=== PATIENT | male | born 1975 | race Caucasian/White ===

== ENCOUNTER → 2017-10-06 08:08 | Outpatient (CLI) | payer OTHER, SELFPAY ==
[2017-10-06 10:13] LABS: Hemoglobin A1c 5.6 % (4.2-6.3)
[2017-10-06 10:20] LABS: ALB/GLOB Ratio 1.1 RATIO (0.9-2.4); AST(SGOT) 32 U/L (15-37); Alanine Aminotransfer ALT/SGPT 66 U/L (16-61); Alkaline Phosphatase 83 U/L (45-117); Anion Gap 9 (5-15); BUN 22 mg/dL (7-18); BUN/Creat Ratio 30.9 RATIO (10-20); Calcium,Total 9.3 mg/dL (8.5-10.1); Chloride 105 mmol/L (98-107); Cholesterol 170 mg/dL (200); Creatinine, Serum 0.71 mg/dL (0.70-1.30); EST Glomerular Filtration Rate 129 mL/min (>60); Est Glom Filt Rate - Afr Amer 156 mL/min (>60); Globulin 3.5 g/dL (2.2-4.2); Glucose 94 mg/dL (74-106); High Density Lipoprotein 45 mg/dL; Potassium 4.1 mmol/L (3.5-5.1); Protein, Total 7.5 g/dL (6.4-8.2); Sodium Level 140 mmol/L (136-145); T4 Free Direct 1.03 ng/dL (0.76-1.46); Thyroid Stim Hormone (TSH) 1.09 uIU/mL (0.358-3.74); Triglycerides 350 mg/dL; Very Low Density Lipoprotein 70 mg/dL (5-40)
== END ==
PROVIDERS: Family Provider Family Medicine; PCP Family Medicine; Visit Provider Internal Medicine Endocrinology, Diabetes & Metabolism
DX: E05.90 Thyrotoxicosis, unspecified without thyrotoxic crisis or storm (principal); E11.65 Type 2 diabetes mellitus with hyperglycemia
CPT/HCPCS: 36415; 80053; 80061; 83036; 84439; 84443; 84481

== ENCOUNTER 2017-12-10 11:09 | Emergency (ER) | payer OTHER, SELFPAY ==
[2017-12-10 11:10] VITALS: BP 116/78; PULSE 96; RESP 18; TEMP 36.9; O2SAT 99; BMI 34.7
[2017-12-10 11:14] VITALS: BP 135/95; PULSE 93; RESP 15; O2SAT 97
--- NOTE | 2017-12-10 11:17 | EKG12_ITS ---
Test Reason : CHEST PAIN Blood Pressure : / mmHG Vent. Rate : 094 BPM Atrial Rate : 094 BPM P-R Int : 162 ms QRS Dur : 100 ms QT Int : 364 ms P-R-T Axes : 021 008 024 degrees QTc Int : 455 ms Normal sinus rhythm Normal ECG Confirmed by ARCADIO BARTH ([id number]), editor & co founder NIRAJ HOFF ([id number]) on 12/13/2017 10:24:52 AM Referred By: FAIZAN/JENNY Confirmed By:ARCADIO BARTH
--- NOTE | 2017-12-10 11:22 | RAD_ITS ---
STUDY: X-RAY CHEST REASON FOR EXAM: Male, 42 years old. Chest pain. TECHNIQUE: Single AP portable view of the chest. COMPARISON: Comparison is made with prior study dated June 20, 2016. FINDINGS: EKG electrodes are seen. The lungs are clear and expanded. There is no demonstrated pleural abnormality. Normal size heart. Normal mediastinum and suly. Normal visualized pulmonary arteries. Normal visualized aortic arch and descending thoracic aorta. Normal visualized thoracic spine. Normal visualized ribs, clavicles, and shoulders. There is no demonstrated abnormality of the visualized soft tissue structures of the upper abdomen. RAD/Chest 1 View (Portable) IMPRESSION: Normal x-ray examination of the chest. Electronically Signed: Lyle Marroquin MD at 12:29 EDT Tel [phone], Service support ,
[2017-12-10] MEDS: Aspirin 81 MG TAB.CHEW 324 MG PO (11:23)
[2017-12-10 11:48] LABS: Absolute Lymphocyte Count 2.42 X10^3/ul (0.83-4.51); Absolute Neutrophil Count 3.7 X10^3/uL (2.0-7.7); Basophil# 0.01 X10^3/uL; Basophil% 0.1 % (0-1); Eosinophil# 0.07 X10^3/uL; Hematocrit 45.9 % (40-54); Hemoglobin 15.4 g/dl (13.0-16.5); Lymphocyte # 2.42 X10^3/ul (4.0); Lymphocyte % 35.9 % (19-41); Mean Corp Hgb Conc 33.6 g/gl (32-36); Mean Corpuscular Hgb 29.9 pg (27.0-32.0); Mean Corpuscular Volume 89.1 fL (80-94); Mean Platelet Vol. 9.3 fl (6.2-12.0); Monocyte# 0.56 X10^3/uL; Monocyte% 8.3 % (0-10); Neutrophil # 3.67 X10^3/uL (2.7-7.7); Neutrophil % 54.4 % (47-70); Platelet Count 231 K/mm3 (150-450); RBC Distribution Width CV 13.4 % (11.6-14.6); RBC Distribution Width SD 43.7 fl (35.1-43.9); Red Blood Count 5.15 M/mm3 (4.6-6.2); White Blood Count 6.8 K/mm3 (4.4-11.0)
[2017-12-10 11:55] LABS: POSITIVE COUNT NO; POSITIVE DIFFERENTIAL NO; POSITIVE MORPHOLOGY NO
[2017-12-10 12:07] LABS: Anion Gap 9 (5-15); BUN 19 mg/dL (7-18); Calcium,Total 9.2 mg/dL (8.5-10.1); Chloride 107 mmol/L (98-107); Creatinine, Serum 0.76 mg/dL (0.70-1.30); EST Glomerular Filtration Rate 120 mL/min (>60); Est Glom Filt Rate - Afr Amer 145 mL/min (>60); Estimated Creatinine Clearance 155.45 ml/min; Glucose 73 mg/dL (74-106); Potassium 4.3 mmol/L (3.5-5.1); Sodium Level 143 mmol/L (136-145)
[2017-12-10 12:11] VITALS: BP 114/78; PULSE 90; RESP 16
--- NOTE | 2017-12-10 12:13 | ED.DCSUM_ITS ---
- ER Visit Summary Date of Service: 12/10/17 Chief Complaint: Chest pain History of Present Illness: The patient is a [address] 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 He is currently on Lovenox twice daily. He states for the last 1-2 weeks he has had constant chest pain that waxes and wanes in intensity. He describes it as sharp and stabbing. He also describes shortness of breath with it. He has no underlying cardiac disease. He has never had any cardiac surgery. He denies any pleuritic nature of the pain or any hemoptysis. Physical Examination: Very male no acute distress. Vital signs are stable afebrile. Blood pressure 135/95. Pulse ox 97% on room air no signs of hypoxia. H EENT exam unremarkable neck nontender no lymphadenopathy. Lungs clear to auscultation bilaterally. Heart regular rate and rhythm no murmur. Abdomen soft nontender. Extremities moving all 4. Neurovascular intact. Equal symmetrical radial pulses. Calves nontender, no edema no cords. Neurologically is awake alert without focal motor deficits. Test Results: Chest x-ray shows normal cardiac silhouette and mediastinum. EKG sinus rhythm rate 94 no signs of DC or ischemia. Unchanged from a prior. CBC normal. Normal H&H. Chemistries normal. Normal creatinine and gap. Troponin normal d-dimer normal. Emergency Department Course and Treatment: Exam is unremarkable. He will undergo a cardiac workup along with a d-dimer. Currently he is anticoagulated daily with Lovenox twice daily. Treatment Plan: Repeat exam patient doing well 1320s. He had a long discussion of all his test results. He is comfortable being discharged home with outpatient follow-up with his primary care physician Dr. Houston. Clinically I do not have a strong suspicion is to be cardiac but given his age they may want to do an outpatient stress test. Disposition: Discharged Impression: Chest pain uncertain etiology History of prior PEs anticoagulated on Lovenox This note was generated with [employer] dictation software. It may contain incorrect words, spelling, and punctuation that were not noted in review of the chart prior to signing ED Disposition - Plan for ED Patient: Chief Complaint: Chest Pain Referrals: Jose L Houston DO [Primary Care Provider] -
[2017-12-10 12:14] LABS: D-Dimer Quantitative (DVT/PE) < 0.27 FEU/ug/m (0.27-0.49)
[2017-12-10 13:16] VITALS: BP 119/78; PULSE 89; RESP 17; O2SAT 96
--- NOTE | 2017-12-10 13:31 | ED.DEP ---
ED Disposition - Plan for ED Patient: Disposition: Home or Assisted Living Chief Complaint: Chest Pain Instructions: ED Chest Pain Atypical Unkn Cause Referrals: Jose L Houston DO [Primary Care Provider] - As soon as possible Additional Instructions: Follow-up your primary care doctor. You and he may want to discuss possible outpatient stress testing. Return if feeling worse. All your tests today were normal.
[2017-12-10 13:53] VITALS: BP 119/78; PULSE 91; RESP 14; O2SAT 97
== END 2017-12-10 13:54 | disposition home or self-care (01) ==
PROVIDERS: Emergency Provider Emergency Medicine; Family Provider Family Medicine; PCP Family Medicine
DX: R07.9 Chest pain, unspecified (principal); R06.00 Dyspnea, unspecified; Z86.711 Personal history of pulmonary embolism; Z86.718 Personal history of other venous thrombosis and embolism; E11.9 Type 2 diabetes mellitus without complications; Z79.01 Long term (current) use of anticoagulants; Z79.84 Long term (current) use of oral hypoglycemic drugs; Z79.899 Other long term (current) drug therapy
CPT/HCPCS: 71045; 80048; 84484; 85025; 85379; 93005; 99285

== ENCOUNTER → 2017-12-16 09:32 | Outpatient (CLI) | payer OTHER, SELFPAY ==
[2017-12-16 12:00] LABS: Absolute Lymphocyte Count 1.77 X10^3/ul (0.83-4.51); Absolute Neutrophil Count 3.4 X10^3/uL (2.0-7.7); Basophil# 0.01 X10^3/uL; Basophil% 0.2 % (0-1); Eosinophils% 1.8 % (0-5); Hemoglobin 13.5 g/dl (13.0-16.5); Lymphocyte # 1.77 X10^3/ul (4.0); Lymphocyte % 31.2 % (19-41); Mean Corp Hgb Conc 32.9 g/gl (32-36); Mean Corpuscular Hgb 29.5 pg (27.0-32.0); Mean Corpuscular Volume 89.7 fL (80-94); Mean Platelet Vol. 9.7 fl (6.2-12.0); Monocyte# 0.38 X10^3/uL; Monocyte% 6.7 % (0-10); Neutrophil # 3.41 X10^3/uL (2.7-7.7); Neutrophil % 59.9 % (47-70); Platelet Count 194 K/mm3 (150-450); RBC Distribution Width CV 13.2 % (11.6-14.6); RBC Distribution Width SD 42.7 fl (35.1-43.9); Red Blood Count 4.57 M/mm3 (4.6-6.2); White Blood Count 5.7 K/mm3 (4.4-11.0)
[2017-12-16 12:06] LABS: POSITIVE COUNT NO; POSITIVE DIFFERENTIAL NO; POSITIVE MORPHOLOGY NO
[2017-12-16 12:14] LABS: Hemoglobin A1c 5.7 % (4.2-6.3)
[2017-12-16 12:25] LABS: AST(SGOT) 14 U/L (15-37); Alanine Aminotransfer ALT/SGPT 37 U/L (16-61); Albumin, Serum 3.5 g/dL (3.2-5.0); Alkaline Phosphatase 71 U/L (45-117); Anion Gap 6 (5-15); BUN 14 mg/dL (7-18); BUN/Creat Ratio 22.4 RATIO (10-20); Calcium,Total 8.5 mg/dL (8.5-10.1); Chloride 108 mmol/L (98-107); Cholesterol 162 mg/dL (200); Creatinine, Serum 0.63 mg/dL (0.70-1.30); EST Glomerular Filtration Rate 149 mL/min (>60); Est Glom Filt Rate - Afr Amer 181 mL/min (>60); Free T3 2.4 pg/mL (2.18-3.98); Globulin 3.4 g/dL (2.2-4.2); Glucose 95 mg/dL (74-106); High Density Lipoprotein 54 mg/dL; Protein, Total 6.9 g/dL (6.4-8.2); Sodium Level 142 mmol/L (136-145); Triglycerides 99 mg/dL; Very Low Density Lipoprotein 20 mg/dL (5-40)
== END ==
PROVIDERS: Family Provider Family Medicine; PCP Family Medicine; Visit Provider Internal Medicine Endocrinology, Diabetes & Metabolism
DX: E78.1 Pure hyperglyceridemia (principal)
CPT/HCPCS: 36415; 80053; 80061; 83036; 84443; 84481; 85025

== ENCOUNTER → 2018-01-03 07:35 | Outpatient (CLI) | payer OTHER, SELFPAY ==
--- NOTE | 2018-01-03 07:36 | ECHOCS_ITS ---
Reason For Study: DYSPNEA Procedure This was a 2D Doppler, Color Flow transthoracic echocardiogram. Definity deferred due to severe reaction on previous echo with chest and flank pain. Exam performed in department. Left Ventricle Normal LV size. The estimated ejection fraction is 50 %. Left ventricular systolic function is lower limits of normal. Stage 2 diastolic dysfunction. No regional wall motion abnormalities noted. Right Ventricle Normal RV size. Normal systolic function. Atria The left atrium is moderately enlarged. Normal right atrium. Mitral Valve Normal mitral valve. Tricuspid Valve Normal tricuspid valve. Mild (1+) tricuspid valve insufficiency. Pulmonary artery systolic pressure is 36 mmHg. Aortic Valve Normal aortic valve. Pulmonic Valve Normal pulmonic valve. Great Vessels Normal aortic root. The pulmonary artery is normal size. Normal inferior vena cava. Pericardium/Pleural No pericardial effusion. MMode/2D Measurements & Calculations LVIDd: 6.4 cm IVSd: 1.2 cm Ao root diam: 3.7 cm LVIDs: 5.4 cm LVPWd: 1.2 cm RVDd: 3.4 cm FS: 16.4 % LAV(MOD-bp): 133.5 ml LA A4 area: 33.8 cm2 RA A4 area: 14.7 cm2 LAV(MOD-bp) Indexed: 52.2 ml/m2 LAV(MOD-sp2): 108.8 ml LAV(MOD-sp4): 135.5 ml Time Measurements MV dec time: 0.18 sec Doppler Measurements & Calculations MV E max severino: 80.8 cm/sec Lat Peak E' Severino: 15.2 cm/sec Med Peak E' Severino: 8.6 cm/sec MV A max severino: 39.3 cm/sec E/E' lat: 5.3 E/E' med: 9.4 MV E/A: 2.1 Ao V2 max: 119.1 cm/sec LV V1 max: 94.7 cm/sec PA V2 max: 94.8 cm/sec Ao max P.7 mmHg LV V1 max P.6 mmHg TR max severino: 291.1 cm/sec TR max P.9 mmHg Interpretation Summary Normal LV size. The estimated ejection fraction is 50 %. Left ventricular systolic function is lower limits of normal. Stage 2 diastolic dysfunction. Pulmonary artery systolic pressure is 36 mmHg. The left atrium is moderately enlarged. Ordering Physician: Osmel Allen Referring Physician: JENIFFER WHITE Performed By: Aubree Teixeira, DAKOTACS, RVT
--- NOTE | 2018-01-03 13:29 | PFT ---
INTRODUCTION: The patient is a 42-year-old male that presents for pulmonary function testing secondary to a diagnosis of redness of breath. Respiratory therapy reports good patient effort. Bronchodilators were used during testing. INTERPRETATION: Forced expiration spirometry demonstrates no evidence of a large airways obstructive ventilatory defect. There was no significant response to aerosolized bronchodilators, based upon strict ATS criteria. Spirograms are of good quality and do not plateau indicating slow emptying of the lungs. Body plethysmography was performed and reveals a decreased TLC to 5.45 L, 65% of predicted, indicative of a moderate restrictive ventilatory impairment. The remainder of the lung volumes are symmetrically reduced. Diffusing capacity by single breath CO is mildly reduced at 74% of predicted. When compared to previous pulmonary function studies dated October 2016 there is been symmetric reductions in FEV1 and FVC. TLC and DLCO have also both decreased by approximately 16%. IMPRESSION: These pulmonary function studies demonstrate the presence of a moderate restrictive ventilatory defect with mild reduction in diffusing capacity. There has been worsening in the patient's PFTs since they were last completed in 2016, as noted above.
== END ==
PROVIDERS: Family Provider Family Medicine; PCP Family Medicine; Visit Provider Internal Medicine Critical Care Medicine
DX: I26.99 Other pulmonary embolism without acute cor pulmonale (principal); R06.02 Shortness of breath
CPT/HCPCS: 93306; 94060; 94726; 94729

== ENCOUNTER → 2018-02-16 06:23 | Outpatient (CLI) | payer OTHER, SELFPAY ==
--- NOTE | 2018-02-16 09:27 | STRESSREP ---
Stress Test Report Pharmacologic myocardial perfusion stress test. 42-year-old man with a history of recurrent deep vein thrombosis. Stress protocol: Resting EKG demonstrates sinus rhythm with rate of 90 bpm resting blood pressure is 128/80 mmHg. 0.4 mg regadenoson was infused per usual protocol followed by rapid intravenous saline flush injection continuous EKG monitoring was performed. The patient maintained sinus rhythm throughout the recording. The maximum heart rate attained was 101 bpm which was 56% of maximum predicted heart rate the maximum workload was 1 metabolic equivalent. Patient maintained sinus rhythm throughout the recording. The resting blood pressure 728/80 with a final blood pressure of the same. Myocardial perfusion protocol. 14.7 mCi of technetium 99m sestamibi was injected at rest. 0.4 mg of regadenoson was infused per usual protocol peak infusion 44.4 mCi of technetium 99m sestamibi was injected stress images were obtained stress and rest images were reconstructed and compared in the short axis vertical long and horizontal long axis. Gated images were also obtained pre- Perfusion SPECT analysis: Review of the stress images demonstrate an upper normal cardiac silhouette size. There appears to be uniform uptake of tracer noted in all areas of the myocardium except for small portion of the apex the inferior wall has significant GI bowel attenuation noted. This is present on the stress and rest images to a similar extent. No obvious areas of reversibility are noted. Gated SPECT analysis: The gated ejection fraction is globally reduced at 27%. Conclusion: Pharmacologic myocardial perfusion stress test with no evidence of ischemia. Global reduction in left ventricular ejection fraction.
== END ==
PROVIDERS: Family Provider Family Medicine; PCP Family Medicine; Visit Provider Internal Medicine Cardiovascular Disease
DX: I50.30 Unspecified diastolic (congestive) heart failure (principal)
CPT/HCPCS: 36415; 78452; 83880; 93017; A9500; A4216; J2785

== ENCOUNTER → 2018-03-02 10:36 | Outpatient (CLI) | payer OTHER, SELFPAY ==
--- NOTE | 2018-03-02 11:01 | ECHOL_ITS ---
Reason For Study: CHF Procedure This was a 2D Doppler, Color Flow transthoracic echocardiogram. The study was technically difficult. Exam performed in department. Left Ventricle Mildly dilated left ventricle. The estimated ejection fraction is 40 %. Diastolic function is indeterminate. Compared to previous study, the left ventricular systolic function has worsened.. There is mild to moderate global hypokinesis of the left ventricle. Right Ventricle Normal RV size. Normal systolic function. Atria The left atrium is mildly enlarged. Normal right atrium. Mitral Valve Normal mitral valve. Tricuspid Valve Normal tricuspid valve. Aortic Valve Normal aortic valve. Trisinus/trileaflet aortic valve. Pulmonic Valve Normal pulmonic valve. Great Vessels Normal aortic root. The pulmonary artery is normal size. Normal inferior vena cava. Pericardium/Pleural No pericardial effusion. MMode/2D Measurements & Calculations LVIDd: 6.4 cm IVSd: 1.2 cm LA dimension: 4.9 cm LVIDs: 5.2 cm LVPWd: 1.2 cm FS: 17.5 % LAV(MOD-bp): 97.8 ml LA A4 area: 24.6 cm2 LAV(MOD-bp) Indexed: 38.3 ml/m2 LAV(MOD-sp2): 107.1 ml LAV(MOD-sp4): 85.9 ml Interpretation Summary Mildly dilated left ventricle. The estimated ejection fraction is 40 %. Diastolic function is indeterminate. There is mild to moderate global hypokinesis of the left ventricle. Compared to previous study, the left ventricular systolic function has worsened.. Ordering Physician: Murray Hawkins Referring Physician: Jose L Houston Performed By: Naomy Lau, PAO, RVT
== END ==
PROVIDERS: Family Provider Family Medicine; PCP Family Medicine; Visit Provider Internal Medicine Cardiovascular Disease
DX: I11.0 Hypertensive heart disease with heart failure (principal); I50.30 Unspecified diastolic (congestive) heart failure; E07.9 Disorder of thyroid, unspecified; I82.409 Acute embolism and thrombosis of unspecified deep veins of unspecified lower extremity; I26.99 Other pulmonary embolism without acute cor pulmonale
CPT/HCPCS: 93308

== ENCOUNTER → 2018-03-03 12:09 | Outpatient (CLI) | payer OTHER, SELFPAY ==
[2018-03-03 13:49] LABS: Absolute Lymphocyte Count 2.14 X10^3/ul (0.83-4.51); Absolute Neutrophil Count 3.4 X10^3/uL (2.0-7.7); Basophil# 0.01 X10^3/uL; Basophil% 0.2 % (0-1); Eosinophil# 0.06 X10^3/uL; Hematocrit 42.3 % (40-54); Hemoglobin 13.7 g/dl (13.0-16.5); Lymphocyte # 2.14 X10^3/ul (4.0); Lymphocyte % 35.1 % (19-41); Mean Corp Hgb Conc 32.4 g/gl (32-36); Mean Corpuscular Volume 89.6 fL (80-94); Mean Platelet Vol. 9.7 fl (6.2-12.0); Monocyte# 0.44 X10^3/uL; Monocyte% 7.2 % (0-10); Neutrophil # 3.44 X10^3/uL (2.7-7.7); Neutrophil % 56.3 % (47-70); Platelet Count 236 K/mm3 (150-450); RBC Distribution Width CV 13.7 % (11.6-14.6); RBC Distribution Width SD 45.3 fl (35.1-43.9); Red Blood Count 4.72 M/mm3 (4.6-6.2); White Blood Count 6.1 K/mm3 (4.4-11.0)
[2018-03-03 13:53] LABS: POSITIVE COUNT NO; POSITIVE DIFFERENTIAL NO; POSITIVE MORPHOLOGY NO
[2018-03-03 14:01] LABS: Prothrombin Time (Protime)PT. 13.1 SECONDS (11.7-14.9)
[2018-03-03 14:02] LABS: Partial Thromboplast Time 36.5 Seconds (24.1-36.2)
[2018-03-03 14:17] LABS: Anion Gap 8 (5-15); BUN 15 mg/dL (7-18); BUN/Creat Ratio 24.5 RATIO (10-20); Chloride 106 mmol/L (98-107); Creatinine, Serum 0.61 mg/dL (0.70-1.30); EST Glomerular Filtration Rate 154 mL/min (>60); Est Glom Filt Rate - Afr Amer 186 mL/min (>60); Glucose 83 mg/dL (74-106); Potassium 4.1 mmol/L (3.5-5.1); Sodium Level 141 mmol/L (136-145)
== END ==
PROVIDERS: Family Provider Family Medicine; PCP Family Medicine; Visit Provider Internal Medicine Cardiovascular Disease
DX: I11.0 Hypertensive heart disease with heart failure (principal); I50.30 Unspecified diastolic (congestive) heart failure; E07.9 Disorder of thyroid, unspecified; I82.409 Acute embolism and thrombosis of unspecified deep veins of unspecified lower extremity; I26.99 Other pulmonary embolism without acute cor pulmonale; I51.89 Other ill-defined heart diseases
CPT/HCPCS: 36415; 80048; 85025; 85610; 85730

== ENCOUNTER 2018-03-04 07:51 | Day surgery (SDC) | payer OTHER, SELFPAY ==
[2018-03-03 12:58] VITALS: BMI 36.8
--- NOTE | 2018-03-04 09:58 | CL.D_ITS ---
Patient Name: KATRINA MELVIN Study Date: 03/04/2018 Performing: Murray Hawkins MD Ht: 75.98 inches 193 cm : 1975 Wt: 302.03 lbs 137 kg Age: 42 Gender: male BSA: 2.64 PROCEDURE(S) PERFORMED [id number]/COR/LV CLINICAL PROFILE AND INDICATIONS Indications: Cardiomyopathy Heart Failure: None Stress/Imaging Stress Test w/SPECT MPI: No CAD Presentations: No Sxs, no angina. CONCLUSIONS Cardiomyopathy: Dilated idiopathic RECOMMENDATIONS Medical therapy Recommend cardiac MRI DESCRIPTION OF PROCEDURE The patient arrived to the procedure lab. The risks and benefits of the procedure as well as a full d escription of our services here and current unavailability of surgical backup were fully explained to the patient and/or their significant other prior to the catheterization. The Timeout was completed, verifying the correct patient and procedure. The patient's procedural site was prepped and draped in the usual fashion. Local anesthetic was given subcutaneously to right radial region with Lidocaine 2% . Using a modified Seldinger technique, arterial access was obtained via the right radial artery, a 6 Fr sheath was inserted. Right Coronary Artery selective angiography was then performed in multiple v iews using a 5 Fr. 4.0 [place] catheter. Left Coronary Artery selective angiography was performed in mu ltiple views using a 5 Fr. JL3.5 catheter. Left Ventriculography was performed in DIGGS projection usin g a 5 Fr. Pigtail catheter. LV to AO pullback pressures were then recorded.The arterial sheath was pu lled and a TR Band was applied for hemostasis w/ 14ml air CORONARY ANGIOGRAPHY DOMINANCE: Right Dominant LEFT HEART ASSESSMENT Left Ventricular Ejection Fraction: by LV Gram 40 % Global Hypokinesis - Moderate Normal Left Ventricular systolic function Depressed Left Ventricular systolic function LEFT MAIN: Angiographically normal LEFT ANTERIOR DECENDING ARTERY: Angiographically normal CIRCUMFLEX ARTERY: Angiographically normal RIGHT CORONARY ARTERY: Angiographically normal COMPLICATIONS No Complications PROCEDURE MEDICATIONS Fentanyl 50 mcg IV Versed 1 mg IV Versed 1 mg IV Fentanyl 50 mcg IV Fentanyl 50 mcg IV Versed 1 mg IV Oxygen: 2 L/min via nasal cannula Heparin diluted in 23cc Heparinized saline. Patient given 10cc IA of this solution. 03/04/2018 08:56: 01 Heparin diluted in 23cc Heparinized saline. Patient given 10cc IA of this solution. 03/04/2018 08:56: 01 Verapamil 2.5mg, Ntg 100mcgs, 2000 units of Heparin diluted in 23cc Heparinized saline. Patient give n 10cc IA of this solution. 03/04/2018 08:56:01 Verapamil 2.5mg, Ntg 100mcgs, 2000 units of Heparin diluted in 23cc Heparinized saline. Patient give n 10cc IA of this solution. 03/04/2018 08:56:01 SUMMARY OF HEMODYNAMIC DATA Time AIR REST ECG 08:09:36 AO 96/64 (77) SA 08:59:31 LV 112/5, 11 09:37:04 LV 115/3, 14 09:37:10 LV 109/6, 19 09:38:54 LVp 109/6, 28 09:38:59 AOp 110/66 (85) 09:39:04 Signed By Murray Hawkins MD On 03/04/2018 09:58:26 Signed By Murray Hawkins MD On 03/04/2018 09:58:09 Murray Hawkins MD
== END 2018-03-04 12:15 | disposition home or self-care (01) ==
LOC: CLSP 07:52
PROVIDERS: Family Provider Family Medicine; PCP Family Medicine; Visit Provider Internal Medicine Cardiovascular Disease
DX: I42.0 Dilated cardiomyopathy (principal); I11.0 Hypertensive heart disease with heart failure; I50.32 Chronic diastolic (congestive) heart failure; E11.9 Type 2 diabetes mellitus without complications; E07.9 Disorder of thyroid, unspecified; Z86.711 Personal history of pulmonary embolism; Z86.718 Personal history of other venous thrombosis and embolism; Z79.4 Long term (current) use of insulin; Z79.84 Long term (current) use of oral hypoglycemic drugs; Z79.899 Other long term (current) drug therapy; Z87.891 Personal history of nicotine dependence
CPT/HCPCS: 93458; 99152; 99153; J7040; Q9967; C1769; C1894

== ENCOUNTER → 2018-03-24 07:32 | Outpatient (CLI) | payer OTHER, SELFPAY ==
[2018-03-24 10:28] LABS: Hemoglobin A1c 5.5 % (4.2-6.3)
[2018-03-24 10:32] LABS: AST(SGOT) 23 U/L (15-37); Alanine Aminotransfer ALT/SGPT 28 U/L (16-61); Albumin, Serum 3.8 g/dL (3.2-5.0); Alkaline Phosphatase 76 U/L (45-117); Anion Gap 10 (5-15); BUN 27 mg/dL (7-18); Calcium,Total 8.8 mg/dL (8.5-10.1); Chloride 105 mmol/L (98-107); Cholesterol 146 mg/dL (200); Creatinine, Serum 0.71 mg/dL (0.70-1.30); EST Glomerular Filtration Rate 129 mL/min (>60); Est Glom Filt Rate - Afr Amer 156 mL/min (>60); Globulin 3.8 g/dL (2.2-4.2); Glucose 110 mg/dL (74-106); High Density Lipoprotein 52 mg/dL; Potassium 3.7 mmol/L (3.5-5.1); Protein, Total 7.6 g/dL (6.4-8.2); Sodium Level 139 mmol/L (136-145); T4 Free Direct 1.09 ng/dL (0.76-1.46); Thyroid Stim Hormone (TSH) 0.64 uIU/mL (0.358-3.74); Triglycerides 100 mg/dL; Very Low Density Lipoprotein 20 mg/dL (5-40)
[2018-03-24 11:00] LABS: T3 Total - Triiodothyronine 1.02 ng/mL (0.6-1.81); Vitamin D,25 Hydroxy 33.1 ng/mL (29.95-100.01)
[2018-03-24 18:48] LABS: Microalbumin,Random Urine 38.5 mg/L (NO RANGE EST.); Microalbumin:Creatinine Ratio 13.4 mg/g CRE (<30 mg/g CRE)
[2018-03-28 08:49] LABS: Free T3 3.2 pg/mL (2.18-3.98)
== END ==
PROVIDERS: Family Provider Family Medicine; PCP Family Medicine; Referring Provider Internal Medicine Endocrinology, Diabetes & Metabolism; Visit Provider Internal Medicine Endocrinology, Diabetes & Metabolism
DX: E05.90 Thyrotoxicosis, unspecified without thyrotoxic crisis or storm (principal); E11.65 Type 2 diabetes mellitus with hyperglycemia
CPT/HCPCS: 36415; 80053; 80061; 82043; 82306; 82570; 83036; 84439; 84443; 84480; 84481

== ENCOUNTER 2018-04-24 16:37 | Emergency (ER) | payer OTHER, SELFPAY ==
[2018-04-24 16:38] VITALS: BP 146/84; PULSE 79; RESP 15; TEMP 36.5; O2SAT 100; BMI 35.2
--- NOTE | 2018-04-24 16:53 | RAD_ITS ---
STUDY: X-RAY CHEST REASON FOR EXAM: Male, 42 years old. Chest pain. TECHNIQUE: Single frontal view of the chest. COMPARISON: December 10, 2017 FINDINGS: The lungs are clear and expanded. There is no demonstrated pleural abnormality. Normal size heart. Normal mediastinum and suly. Normal visualized pulmonary arteries. Normal visualized aortic arch and descending thoracic aorta. Normal visualized thoracic spine. Normal visualized ribs, clavicles, and shoulders. There is no demonstrated abnormality of the visualized soft tissue structures of the upper abdomen. RAD/Chest 1 View (Portable) IMPRESSION: Normal x-ray examination of the chest. Electronically Signed: Shayne Crocker MD at 17:18 EST , Service support ,
--- NOTE | 2018-04-24 16:53 | EKG12_ITS ---
Test Reason : CHEST PAIN Blood Pressure : / mmHG Vent. Rate : 081 BPM Atrial Rate : 081 BPM P-R Int : 166 ms QRS Dur : 108 ms QT Int : 378 ms P-R-T Axes : 037 019 067 degrees QTc Int : 439 ms Normal sinus rhythm Normal ECG Confirmed by CARLOS SARAVIA, DAYLIN ([id number]), make up editor JOELLEN GOODEN ([id number]) on 04/27/2018 1:04:16 PM Referred By: DC Confirmed By:DAYLIN GONZALEZ MD
[2018-04-24] MEDS: Aspirin 81 MG TAB.CHEW 324 MG PO (16:58)
--- NOTE | 2018-04-24 16:58 | ED.DCSUM_ITS ---
- ER Visit Summary Date of Service: 04/24/18 Chief Complaint: Chest pain History of Present Illness: The patient is a 42 M chest pain since this morning. He has a complicated history of major PE on Lovenox shots due to failure of Xarelto. He recently had an unremarkable catheterization as well as cardiac MRI which showed an EF in the 30s per him. Patient has no edema, he does get winded when he walks across a field. No fever chills or cough. Physical Examination: Not appear in acute distress. Moist mucous membranes, no obvious facial deformity No C-spine tenderness supple neck. Regular rate and rhythm without any obvious murmurs Clear lungs bilaterally speaking in full sentences without any obvious respiratory distress Abdomen soft and nontender no guarding or rebound Moves all extremities without any difficulty or pain. Skin does not show any obvious rashes or lesions, no trauma. Alert oriented ?3 with no gross focal deficit Emergency Department Course and Treatment: Patient has an unremarkable workup. He had a negative catheterization recently. He has no signs of CHF. I discussed with Dr. Hawkins and patient will be seen outpatient. He is currently stable. Discharge stable condition Impression: Chest pain This note was generated with [employer] dictation software. It may contain incorrect words, spelling, and punctuation that were not noted in review of the chart prior to signing ED Disposition - Plan for ED Patient: Disposition: Home or Assisted Living Chief Complaint: Chest Pain Instructions: ED Chest Pain Noncardiac Ch Referrals: Murray Hawkins MD [STAFF PHYSICIAN] - 3-5 Days
[2018-04-24 17:03] LABS: Absolute Lymphocyte Count 2.47 X10^3/ul (0.83-4.51); Absolute Neutrophil Count 4.8 X10^3/uL (2.0-7.7); Basophil# 0.02 X10^3/uL; Basophil% 0.3 % (0-1); Eosinophil# 0.05 X10^3/uL; Eosinophils% 0.6 % (0-5); Hematocrit 43.9 % (40-54); Hemoglobin 14.6 g/dl (13.0-16.5); Lymphocyte # 2.47 X10^3/ul (4.0); Mean Corp Hgb Conc 33.3 g/gl (32-36); Mean Corpuscular Hgb 30.2 pg (27.0-32.0); Mean Corpuscular Volume 90.7 fL (80-94); Mean Platelet Vol. 9.1 fl (6.2-12.0); Monocyte# 0.62 X10^3/uL; Monocyte% 7.8 % (0-10); Neutrophil # 4.79 X10^3/uL (2.7-7.7); Platelet Count 216 K/mm3 (150-450); RBC Distribution Width CV 13.9 % (11.6-14.6); RBC Distribution Width SD 45.5 fl (35.1-43.9); Red Blood Count 4.84 M/mm3 (4.6-6.2)
[2018-04-24 17:04] LABS: POSITIVE COUNT NO; POSITIVE DIFFERENTIAL NO; POSITIVE MORPHOLOGY NO
[2018-04-24 17:18] LABS: Anion Gap 9 (5-15); BUN 22 mg/dL (7-18); BUN/Creat Ratio 29.4 RATIO (10-20); Calcium,Total 8.7 mg/dL (8.5-10.1); Chloride 107 mmol/L (98-107); Creatinine, Serum 0.75 mg/dL (0.70-1.30); EST Glomerular Filtration Rate 121 mL/min (>60); Est Glom Filt Rate - Afr Amer 147 mL/min (>60); Estimated Creatinine Clearance 157.53 ml/min; Glucose 111 mg/dL (74-106); Potassium 3.8 mmol/L (3.5-5.1); Sodium Level 145 mmol/L (136-145)
[2018-04-24 18:08] LABS: BNP,B-Type NATRIURETIC PEPTIDE 45.5 pg/mL (0-100)
--- NOTE | 2018-04-24 18:19 | NURSING ---
DR GONZALEZ PAGED
[2018-04-24] MEDS: Ondansetron 4 MG/2 ML Vial IV (18:27)
[2018-04-24 19:08] VITALS: BP 127/86; PULSE 73; RESP 17
== END 2018-04-24 19:10 | disposition home or self-care (01) ==
PROVIDERS: Emergency Provider Emergency Medicine; Family Provider Family Medicine; PCP Family Medicine
DX: R07.9 Chest pain, unspecified (principal); R42 Dizziness and giddiness; Z86.711 Personal history of pulmonary embolism; Z86.718 Personal history of other venous thrombosis and embolism; Z79.01 Long term (current) use of anticoagulants; Z79.899 Other long term (current) drug therapy
CPT/HCPCS: 71045; 80048; 83880; 84484; 85025; 93005; 96374; 99284; J2405

== ENCOUNTER 2018-05-18 16:00 | Emergency (ER) | payer OTHER, SELFPAY ==
[2018-05-18 16:01] VITALS: BP 153/93; PULSE 84; RESP 19; TEMP 36.9; O2SAT 97; BMI 38.0
--- NOTE | 2018-05-18 16:20 | EKG12_ITS ---
Test Reason : CP Blood Pressure : / mmHG Vent. Rate : 080 BPM Atrial Rate : 080 BPM P-R Int : 142 ms QRS Dur : 102 ms QT Int : 382 ms P-R-T Axes : 004 026 043 degrees QTc Int : 440 ms Normal sinus rhythm Normal ECG Confirmed by CARLOS SARAVIA, DAYLIN ([id number]), editor [employer] journal NIRAJ HOFF ([id number]) on 05/20/2018 2:31:12 PM Referred By: LOIS/CHRISTEL Confirmed By:DAYLIN GONZALEZ MD
--- NOTE | 2018-05-18 16:21 | CT_ITS ---
STUDY: CT BRAIN WITHOUT CONTRAST REASON FOR EXAM: Male, 42 years old. Headache RADIATION DOSAGE (If Supplied By Facility): CTDIvol = ( 44.99 ) mGy, DLP = ( 796.11 ) mGycm TECHNIQUE: Transaxial CT imaging of the brain was performed without administration of intravenous contrast material. Individualized dose optimization techniques were used for this CT. COMPARISON: MRI from 06/21/2016 FINDINGS: Normal soft tissue structures. Normal calvarium. Normal size ventricles and extra-axial spaces for the patient's age. Normal white matter tracts of the cerebral hemispheres. Normal basal ganglia and thalami. Normal brainstem. Normal cerebellum. There is no intracranial hemorrhage. There are no findings of an acute ischemic infarction. Normal visualized paranasal sinuses. CT/Brain/Head without Contrast IMPRESSION: Normal unenhanced CT scan of the brain. Electronically Signed: Leonel Noel MD at 17:37 EST , Service support ,
--- NOTE | 2018-05-18 16:21 | VDLE_ITS ---
Reason For Study: LLE swelling RIGHT LEFT CFV is compressible, spontaneous, phasic, GSV is normal. competent and demonstrates normal CFV is compressible, spontaneous, phasic, augmentation. competent, and demonstrates normal Procedure augmentation. Exam performed portable in ED. FV is compressible, spontaneous, phasic, The study was technically difficult. competent and demonstrates normal The exam was diagnostic. augmentation. A preliminary report was called and/or faxed POP V is compressible, spontaneous, phasic, to DR Dotson & ED. competent and demonstrates normal augmentation. T/P Trunk is compressible. PTV is compressible. LT PerV is compressible. <> Interpretation Summary There is no evidence of left lower extremity deep vein thrombosis. Left greater saphenous vein appears patent and compressible segmentally. Normal flow patterns right common femoral vein. Ordering Physician: Priscila Dotson Referring Physician: Jose L Houston Performed By: Naomy Lau RDCS, RVT
--- NOTE | 2018-05-18 16:25 | RAD_ITS ---
STUDY: X-RAY CHEST REASON FOR EXAM: Male, 42 years old. Worsening chest pressure TECHNIQUE: Single AP portable view of the chest. COMPARISON: 04/24/2018 FINDINGS: EKG leads overlie the chest There are interstitial fibrotic changes of the lungs. There is no demonstrated pleural abnormality. Normal size heart. Normal mediastinum and suly. Normal visualized pulmonary arteries. Normal visualized aortic arch and descending thoracic aorta. Normal visualized thoracic spine. Normal visualized ribs, clavicles, and shoulders. There is no demonstrated abnormality of the visualized soft tissue structures of the upper abdomen. RAD/Chest 1 View (Portable) IMPRESSION: Chronic interstitial changes, no superimposed acute pulmonary process Electronically Signed: Leonel Noel MD at 16:49 EST , Service support ,
[2018-05-18 16:31] LABS: Absolute Neutrophil Count 4.9 X10^3/uL (2.0-7.7); Basophil# 0.01 X10^3/uL; Basophil% 0.1 % (0-1); Eosinophil# 0.07 X10^3/uL; Hematocrit 41.4 % (40-54); Hemoglobin 13.8 g/dl (13.0-16.5); Lymphocyte % 21.2 % (19-41); Mean Corp Hgb Conc 33.3 g/gl (32-36); Mean Corpuscular Hgb 30.3 pg (27.0-32.0); Mean Corpuscular Volume 90.8 fL (80-94); Mean Platelet Vol. 9.9 fl (6.2-12.0); Monocyte# 0.64 X10^3/uL; Neutrophil # 4.87 X10^3/uL (2.7-7.7); Neutrophil % 68.7 % (47-70); POSITIVE COUNT NO; POSITIVE DIFFERENTIAL NO; POSITIVE MORPHOLOGY NO; Platelet Count 193 K/mm3 (150-450); RBC Distribution Width CV 14.2 % (11.6-14.6); RBC Distribution Width SD 46.5 fl (35.1-43.9); Red Blood Count 4.56 M/mm3 (4.6-6.2); White Blood Count 7.1 K/mm3 (4.4-11.0)
[2018-05-18 16:47] LABS: Anion Gap 8 (5-15); BUN 19 mg/dL (7-18); BUN/Creat Ratio 24.5 RATIO (10-20); Calcium,Total 8.8 mg/dL (8.5-10.1); Chloride 109 mmol/L (98-107); Creatinine, Serum 0.78 mg/dL (0.70-1.30); EST Glomerular Filtration Rate 116 mL/min (>60); Est Glom Filt Rate - Afr Amer 141 mL/min (>60); Estimated Creatinine Clearance 151.47 ml/min; Glucose 124 mg/dL (74-106); Potassium 3.7 mmol/L (3.5-5.1); Sodium Level 146 mmol/L (136-145)
[2018-05-18 16:57] LABS: BNP,B-Type NATRIURETIC PEPTIDE 306.4 pg/mL (0-100)
[2018-05-18 17:05] VITALS: BP 134/86; PULSE 81; RESP 20; O2SAT 91
[2018-05-18 17:38] VITALS: BP 148/90; PULSE 83; RESP 15; O2SAT 93
--- NOTE | 2018-05-18 17:39 | ED.RN ---
Patient placed on 2l o2 via nc for comfort. SpO2 was 92% on RA.
--- NOTE | 2018-05-18 17:51 | ED.DCSUM_ITS ---
- ER Visit Summary Date of Service: 05/18/18 Chief Complaint: [Chest pain and shortness of breath] History of Present Illness: The patient is a 42 M [presents the emergency department complaint of increasing shortness of breath over last several weeks. Patient complains of exertional dyspnea. Patient also with chest pressure intermittently but worsening today. Patient complains of generalized fatigue. Patient has a history of cardiomyopathy of unknown etiology. Last ejection fraction via MRI in March was 32%. In February he had an echo that showed an ejection fraction of 40%. And had a heart catheterization that showed normal coronary arteries that was done March 04.] Patient also complains of head pressure today. He describes pressure in his head especially with leaning forward and bending over. Patient asking if he could have his ejection fraction checked again. Patient currently on Lovenox for history of PE and DVT . Patient also describes swelling in his lower extremities intermittently. Patient had significant swelling in his left lower extremity yesterday. Physical Examination: [HEENT-PERRLA, EOMI. Cranial nerves II through XII grossly intact. TMs clear. Mucous membranes moist. No adenopathy. Cardiovascular-regular rate and rhythm without murmur or ectopy Lungs-clear to auscultation, chest wall stable without crepitus or subcu emphysema Abdomen-normoactive bowel sounds, soft, nontender, no rebound or rigidity, no peritoneal signs. Extremities-intact ?4, normal range of motion, normal pulses, atraumatic] Test Results: [EKG obtained arrival shows sinus rhythm with a ventricular rate of 80 bpm with no acute I segment changes. CBC with differential showed a white count 7.1, hemoglobin 13.8, hematocrit 41, platelets 193. Chemistries unremarkable. Troponin was less than 0.015. BNP was 306. His BNP on 04/24 was 45. Chest x-ray showed chronic interstitial changes otherwise nothing acute. CT scan of the brain without contrast obtained was negative for hemorrhage or acute process. Left lower extremity venous duplex was negative for DVT.] Emergency Department Course and Treatment: [Case was discussed with Dr. Al Frey who was covering for Dr. Murray Hawkins. At this point no changes in medications were recommended. Patient will be contacted about obtaining an outpatient echocardiogram.] Treatment Plan: [Follow-up with cardiology for outpatient echo] Disposition: [Discharged home in stable condition] Impression: [Chest pain Dyspnea] This note was generated with [employer] dictation software. It may contain incorrect words, spelling, and punctuation that were not noted in review of the chart prior to signing ED Disposition - Plan for ED Patient: Chief Complaint: Chest Pain Referrals: Jose L Houston DO [Primary Care Provider] -
--- NOTE | 2018-05-18 17:51 | ED.DEP ---
ED Disposition - Plan for ED Patient: Chief Complaint: Chest Pain Instructions: ED Chest Pain Atypical Unkn Cause, ED Dyspnea Shortness of Breath Referrals: Jose L Houston DO [Primary Care Provider] - Murray Hawkins MD [STAFF PHYSICIAN] - 3-5 Days Additional Instructions: Follow up with cardiology for outpatient echocardiogram
[2018-05-18 18:02] VITALS: BP 150/96; PULSE 80; RESP 17; O2SAT 94
--- OUTSIDE RECORDS SUMMARY | 2018-07-14 03:16 | XMS RPT_ITS ---
:1975 Author Organization [place] Support Name Relationship Address Phone R Unavailable Unavailable Unavailable BELL MELVIN Unavailable [address] + [place] [address] VIA, OLAYINKA/ANGIE Unavailable [address] + [place] [address] R Unavailable Unavailable Unavailable BELL MELVIN Unavailable [address] + [place] [address] VIA, OLAYINKA/ANGIE Unavailable [address] + [place] [address] R Unavailable Unavailable Unavailable BELL MELVIN Unavailable [address] + [place] [address] VIA, OLAYINKA/ANGIE Unavailable [address] + [place] [address] R Unavailable Unavailable Unavailable BELL MELVIN Unavailable [address] + [place] [address] VIA, OLAYINKA/ANGIE Unavailable [address] + [place] [address] R Unavailable Unavailable Unavailable BELL MELVIN Unavailable [address] + [place] [address] VIA, OLAYINKA/ANGIE Unavailable [address] + [place] [address] R Unavailable Unavailable Unavailable VIABELL Unavailable [address] + [place] [address] VIA, OLAYINKA/ANGIE Unavailable [address] + [place] [address] R Unavailable Unavailable Unavailable VIABELL Unavailable [address] + [place] [address] VIA, OLAYINKA/ANGIE Unavailable [address] + [place] [address] VIA, BELL Unavailable [address] + [place] [address] VIAKATRINA Unavailable Unavailable Unavailable R Unavailable Unavailable Unavailable VIA, BELL Unavailable [address] + [place] [address] VIA, OLAYINKA/ANGIE Unavailable [address] + [place] [address] R Unavailable Unavailable Unavailable VIA, BELL Unavailable [address] + [place] [address] VIA, OLAYINKA/ANGIE Unavailable [address] + [place] [address] R Unavailable Unavailable Unavailable VIA, BELL Unavailable [address] + [place] [address] VIA, OLAYINKA/ANGIE Unavailable [address] + [place] [address] R Unavailable Unavailable Unavailable VIA, BELL Unavailable [address] + [place] [address] VIA, OLAYINKA/ANGIE Unavailable [address] + [place] [address] R Unavailable Unavailable Unavailable VIA, BELL Unavailable [address] + [place] [address] VIA, OLAYINKA/ANGIE Unavailable [address] + [place] [address] R Unavailable Unavailable Unavailable VIA, BELL Unavailable [address] + [place] [address] VIA, OLAYINKA/ANGIE Unavailable [address] + [place] [address] R Unavailable Unavailable Unavailable VIA, BELL Unavailable [address] + [place] [address] VIA, OLAYINKA/ANGIE Unavailable [address] + [place] [address] R Unavailable Unavailable Unavailable VIA, BELL Unavailable [address] + [place] [address] VIA, OLAYINKA/ANGIE Unavailable [address] + [place] [address] R Unavailable Unavailable Unavailable VIA, BELL Unavailable [address] + [place] [address] VIA, OLAYINKA/ANGIE Unavailable [address] + [place] [address] R Unavailable Unavailable Unavailable VIA, BELL Unavailable [address] + [place] [address] VIA, OLAYINKA/ANGIE Unavailable [address] + [place] [address] R Unavailable Unavailable Unavailable VIA, BELL Unavailable [address] + [place] [address] VIA, OLAYINKA/ANGIE Unavailable [address] + [place] [address] R Unavailable Unavailable Unavailable VIA, BELL Unavailable [address] + [place] [address] VIA, OLAYINKA/ANGIE Unavailable [address] + [place] [address] R Unavailable Unavailable Unavailable VIA, BELL Unavailable [address] + [place] [address] VIA, OLAYINKA/ANGIE Unavailable [address] + [place] [address] R Unavailable Unavailable Unavailable VIA, BELL Unavailable [address] + [place] [address] VIA, OLAYINKA/ANGIE Unavailable [address] + [place] [address] R Unavailable Unavailable Unavailable VIA, BELL Unavailable [address] + [place] [address] VIA, OLAYINKA/ANGIE Unavailable [address] + [place] [address] R Unavailable Unavailable Unavailable VIA, BELL Unavailable [address] + [place] [address] VIA, OLAYINKA/ANIGE Unavailable [address] + [place] [address] R Unavailable Unavailable Unavailable VIA, BELL Unavailable [address] + [place] [address] VIA, OLAYINKA/ANGIE Unavailable [address] + [place] [address] R Unavailable Unavailable Unavailable VIA, BELL Unavailable [address] + [place] [address] VIA, OLAYINKA/ANGIE Unavailable [address] [phone] [place] [address] R Unavailable Unavailable Unavailable VIA, BELL Unavailable [address] + [place] [address] VIA, OLAYINKA/ANGIE Unavailable [address] + [place] [address] R Unavailable Unavailable Unavailable VIA, BELL Unavailable [address] + [place] [address] VIA, OLAYINKA/ANGIE Unavailable [address] [phone] [place] [address] [facility]EN[facility] Unavailable [address] + [place] [address] VIA, BELL Unavailable [address] + [place] [address] VIA, OLAYINKA/ANGIE Unavailable [address] [phone] [place] [address] R Unavailable Unavailable Unavailable VIA, BELL Unavailable [address] + [place] [address] VIA, OLAYINKA/ANGIE Unavailable [address] [phone] [place] [address] Care Team Providers Name Role Phone MURRAY HAWKINS Attending Unavailable MURRAY HAWKINS Referring Unavailable JENIFFER HOUSTON Primary Care Unavailable Keshav Velasquez Attending Unavailable Keshav Velasquez Referring Unavailable Jeniffer Houston Primary Care Unavailable Analia Casas Attending Unavailable Raghunathan, Autumn N. Attending Unavailable Raghunathan, Autumn N. Referring Unavailable Rosemarie, Jeniffer Primary Care Unavailable Osmel Allen Attending Unavailable Fredy Enamorado Referring Unavailable Rosemarie, Jeniffer Primary Care Unavailable Raghunathan, Autumn N. Attending Unavailable Rosemarie, Jeniffer Primary Care Unavailable Rosemarie, Jeniffer Primary Care Unavailable Fawad Carrasco Attending Unavailable Raghunathan, Autumn N. Attending Unavailable Raghunathan, Autumn N. Referring Unavailable Rosemarie, Jeniffer Primary Care Unavailable Alejandro, Osmel Attending Unavailable Alejandro, Osmel Referring Unavailable Rosemarie, Jeniffer Primary Care Unavailable Alejandro, Osmel Attending Unavailable Rosemarie, Jeniffer Referring Unavailable Rosemarie, Jeniffer Primary Care Unavailable Romel Altamirano D.O. Attending Unavailable Alejandro, Osmel Referring Unavailable Shruthi, [place] Attending Unavailable Sarah Yanez Attending Unavailable Shruthi, Murray Attending Unavailable Rosemarie, Jeniffer Referring Unavailable Rosemarie, Jeniffer Primary Care Unavailable Shruthi, Murray Attending Unavailable Shruthi, [place] Referring Unavailable Rosemarie, Jeniffer Primary Care Unavailable Osmel Allen Attending Unavailable Alejandro, Osmel Referring Unavailable Rosemarie, Jeniffer Primary Care Unavailable Shruthi, Murray Attending Unavailable Shruthi, Murray Referring Unavailable Rosemarie, Jeniffer Primary Care Unavailable Shruthi, [place] Attending Unavailable Shruthi, Murray Referring Unavailable Rosemarie, Jeniffer Primary Care Unavailable Shruthi, [place] Attending Unavailable Shruthi, Murray Referring Unavailable Rosemarie, Jeniffer Primary Care Unavailable Shruthi, [place] Attending Unavailable Shruthi, [place] Referring Unavailable Chandra Wilburn Attending Unavailable Rosemarie, Jeniffer Referring Unavailable Raghunathan, Autumn N. Attending Unavailable Raghunathan, Autumn N. Referring Unavailable Rosemarie, Jeniffer Primary Care Unavailable Shruthi, [place] Attending Unavailable Shruthi, Murray Referring Unavailable Shruthi, [place] Attending Unavailable Shruthi, Murray Referring Unavailable Rosemarie, Jeniffer Primary Care Unavailable Al Snyder Attending Unavailable Shruthi, Murray Attending Unavailable Rosemarie, Jeniffer Referring Unavailable Rosemarie, Jeniffer Primary Care Unavailable María Elena Dotsonus Attending Unavailable Chandra Wilburn Attending Unavailable Rosemarie, Jeniffer Referring Unavailable Shruthi, Murray Attending Unavailable Shruthi, [place] Referring Unavailable Rosemarie, Jeniffer Primary Care Unavailable Shruthi, [place] Attending Unavailable Jeniffer Houston Referring Unavailable PROBLEMS PROBLEMS DATE TYPE CONDITION / CODE ATTENDING STATUS SOURCE Admitting Other cardiomyopathies MURRAY HAWKINS S Active [place] 8 diagnosis / I42.8(ICD-10) [facility] Repository Unknown E05.90 - Raghunatcanelo, Active [place] 8 Thyrotoxicosis, Autumn N. Community unspecified without Hospital thyrotoxic crisis or Repository storm / E05.90(ICD-10) Unknown E11.65 - Type 2 Raghunatcanelo, Active [place] 8 diabetes mellitus with Autumn N. Community hyperglycemia / Hospital E11.65(ICD-10) Repository Unknown I50.30 - Unspecified AlejandroOsmel neal Active [place] 8 diastolic (congestive) Community heart failure / Hospital I50.30(ICD-10) Repository Unknown I50.32 - Chronic AlejandroOsmel neal Active [place] 8 diastolic (congestive) Community heart failure / Hospital I50.32(ICD-10) Repository Unknown E78.1 - Pure Raglisanatcanelo, Active [place] 8 hyperglyceridemia / Autumn N. Community E78.1(ICD-10) Hospital Repository Unknown R07.9 - Chest pain, Danilo Active [place] 8 unspecified / [facility] R07.9(ICD-10) Hospital Repository Unknown I26.92 - Saddle Osmel Allen Active [place] 8 embolus of pulmonary Community artery without acute Hospital cor pulmonale / Repository I26.92(ICD-10) Unknown R06.02 - Shortness of Osmel Allen Active [place] 8 breath / Community R06.02(ICD-10) Hospital Repository Unknown I26.99 - Other AlejandroOsmel neal Active [place] 8 pulmonary embolism Community without acute cor Hospital pulmonale / Repository I26.99(ICD-10) Unknown I82.4Z2 - Acute Jeffry, Active [place] 8 embolism and Keshav Community thrombosis of Hospital unspecified deep veins Repository of left distal lower extremity / I82.4Z2(ICD-10) PROCEDURES PROCEDURES No Procedure Records FoundRESULTS RESULTS CARDIOLOGY VISIT Observed: 05/26/2018 Status: F Source: [place] REPORT 2:57 PM [facility] REPOSITORY [facility] [address] [place] [address] OFFICE VISIT Date of Service: 05/26/18 MR#: [id number] Acct: [id number] Name: KATRINA MELVIN Rep #: [id number] : 1975 Provider: Murray Hawkins MD Age/Sex: 42/M Location: [facility] Status: Signed HPI HPI Chief Complaint: Shortness of breath Details: KATRINA MELVIN, is a 42 M who presents to the office today for a follow up. He says that he is here to evaluate the status of his heart. He is a gentleman with a history of previous pulmonary embolism and DVT in July 2016. At that time he was noted to have an ejection fraction of 55% and right ventricular systolic pressure 33 mmHg. He says that he had a repeat echocardiogram done in October 2016 with demonstrated ejection fraction of 55% and right ventricular systolic pressure of 29 mmHg. He has had occasional sharp chest pain stabbing and some shortness of breath and fatigue. As part of the workup for the above he had a repeat echocardiogram done in December 2017 with demonstrated ejection fraction of 50% with pulmonary artery systolic pressure of 38 mmHg. He was noted to have stage II diastolic dysfunction. Due to the above it was felt that he may have a cardiac condition and he was referred here for further cardiac evaluation. We performed a cardiac catheterization on him with demonstrated no obstructive coronary disease and an ejection fraction was estimated to be 40%. I sent him for a cardiac MRI at the [facility] and his left ventricular ejection fraction was estimated to be 32% and his right ventricular systolic function was 40%. He has been started on lisinopril as well as carvedilol. He denies any neck arm or jaw discomfort suggest angina no chest heaviness to suggest angina. He however did present to the emergency room recently with chest pain which was thought to be atypical and BT [employer] was noted to be less than 50. He did present once again to the emergency room with more shortness of breath as well as pedal edema and what appears to be orthopnea. A BT [employer] INSTALL[employer] was obtained at that time and was noted to be over 300. Unfortunately however he was sent home and then later placed on diuretics and has lost over 20 pounds. He is feeling somewhat better. His physical exam today demonstrates clear lung fischer regular rate and rhythm and no pedal edema his blood pressure is under good control. Intake Vital Signs05/26/18 Height 6 ft 4 in 05/26/18 Weight: 287 lb 05/26/18 Body Mass Index (BMI) 34.9 05/26/18 Blood Pressure 120/82 H Intake Visit Reasons: sob,chest pain Ui Ux Developer Required: No Accompanied by: NONE Is patient in pain?: Yes Allergies codeine Allergy (Verified 05/26/18 14:03) Other perflutren [From DefinAxonify] Adverse Reaction (Verified 05/26/18 14:03) Pain in joints Medications Dulaglutide [Trulicity] 1.5 mg SQ GUPTA 12/10/17 [History Confirmed 05/26/18] Enoxaparin [Lovenox] 135 mg SC Q12@0600,1800 12/10/17 [History Confirmed 05/26/18] Methimazole [Tapazole] 7.5 mg PO DAILY 12/10/17 [History Confirmed 05/26/18] lisinopril 10 mg tablet 10 mg PO DAILY #30 tab 03/04/18 [Rx Confirmed 05/26/18] Cholecalciferol (Vitamin D3) [Vitamin D3] 5,000 unit PO DAILY 04/24/18 [History Confirmed 05/26/18] Multivitamin [Daily Multiple Vitamin] 1 ea PO DAILY 04/24/18 [History Confirmed 05/26/18] carvedilol 12.5 mg tablet 12.5 mg PO BID #180 tab 04/28/18 [Rx Confirmed 05/26/18] metformin 1,000 mg tablet 500 mg PO TID tab 04/28/18 [History Confirmed 05/26/18] furosemide 40 mg tablet 40 mg PO DAILY #30 tab 05/23/18 [Rx Confirmed 05/26/18] [facility] Medical History Idiopathic cardiomyopathy (Chronic) 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) Diastolic dysfunction with heart failure (Acute) Thyroid disorder (Chronic) DVT of leg (deep venous thrombosis) (Chronic) Pulmonary embolism (Resolved) HTN (hypertension) (Chronic) Medial meniscus tear (Chronic) Type 2 diabetes mellitus (Chronic) Contusion of left knee, initial encounter (Resolved) Other tear of medial meniscus, current injury, left knee, subsequent encounter (Resolved) Other internal derangements of left knee (Inactive) Other tear of lateral meniscus, current injury, left knee, subsequent encounter (Inactive) Pain of left knee after injury (Inactive) Surgical History Partially torn MCL (Inactive) Torn PCL (Inactive) Torn meniscus (Inactive) torn cartilage behind knee (Inactive) Family History Father Hypertension Social History Smoking Status: Never smoker how long ago did patient quit smokin, 2pks/day second hand exposure: Yes alcohol intake: current alcohol intake frequency: a few times a month substance use type: does not use ROS Const Const: Negative for fatigue, weakness, night sweats, excessive sweating, frequent falls, headache(s) or daytime sleepiness Eyes Eyes: Negative for loss of peripheral vision, transient loss of vision, blind spots, double vision or blurry vision ENT ENT: Negative for headache(s), dizziness, balance problems, Nosebleed/epistaxis, tongue swelling or lip swelling Cardio Chest Pain: Yes Palpitations: No Edema: Bilateral Muscle aches with walking: None Resp Respiratory: Positive for SOB at rest and SOB with activity; negative for SOB orthopnea\SOB lying down, Cough or paroxysmal nocturnal dyspnea GI GI: Negative nausea, vomiting, heartburn, black,tarry stools or bright, red blood in stools : Negative for hematuria Musc Musc: Negative for balance problems, muscle aches/ myalgia, muscle weakness or joint pain Skin Skin: Negative non-healing lesions, unusual bruising or rash Neuro Neuro: Negative for weakness, frequent falls, headache(s), double vision, dizziness, lightheadedness, orthostatic symptoms, blurry vision or lack of coordination Anuj Hematologic/Lymphatic: Negative for easy bruising or easy bleeding Endo Endo: Negative for fatigue, excessive sweating, cold intolerance, heat intolerance, increased thirst/drinking or hair loss Psych Psych: Negative for anxiety or depression Allergy Allergy/Immunology: Negative for throat swelling, Negative for tongue swelling, Negative for hives, Negative for rash, Negative for lip swelling Cardiology Exam Const Appearance: cooperative, healthy appearing, well developed, well groomed and no acute distress Nutritional Appearance: well nourished and average body habitus Orientation: alert, awake and oriented x3 Head Head: normal to inspection, normocephalic and atraumatic Ears: hearing grossly normal bilaterally and external ears normal Nose: external nose normal, nasal mucous membranes and turbinates normal, nares normal, septum normal, no nasal discharge Face and Sinus: face symmetric Mouth: oral mucosae normal, tongue normal, oropharynx normal and moist mucous membranes Teeth and gingiva: dentition normal Throat: posterior oropharynx normal, tonsils normal and uvula midline Eyes General: appearance normal, both eyes and all related structures Eyelids: eyelids normal Conjunctivae: conjunctivae normal Pupils: PERRL, normal by confrontation and accommodation normal EOM: EOM intact bilaterally Neck Neck: normal visual inspection, trachea midline and no JVD JVD: +5 Carotids: normal carotid upstroke and bounding pulses Chest Chest inspection: normal inspection of the chest, symmetric chest movement and normal respiratory effort Auscultation: Bilateral: Clear to Auscultation Cardio Palpation: normal PMI Rate: regular rate Rhythm: regular rhythm Heart sounds: S1 normal, S2 normal and normal, physiologic split S2; negative rub, gallop or murmur GI GI: normal to inspection, soft, no hepatosplenomegaly and bowel sounds present Neuro General: alert, awake, oriented x3, no focal sensory deficit, gait normal and moves all extremities Skin Skin: no rashes or lesions noted Extremities Pulses: Normal: Right Femoral Pulse, Left Femoral Pulse, Right Dorsalis Pedis Pulse, Left Dorsalis Pedis Pulse, Right Posterior Tibial Pulse, Left Posterior Tibial Pulse, Right Radial Pulse, Left Radial Pulse Lower Extremity Edema: None: Bilateral Musculoskel Musculoskeletal: No joint tenderness Psych Psychological: normal affect Assessment AND Plan 1. 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 The plan is for him to continue on the lisinopril as well as the carvedilol at the same dose. I am suggesting that we increase his Lasix to 40 mg twice a day for the next 3 days, and then continue with daily weights and then go back to 40 mg once a day. I have also instructed him that should he gain more than 3 pounds he should take an extra dose of Lasix. At his follow-up appointment further recommendations will be made. 2. HTN (hypertension) I10 Plan He does have a history of hypertension which appears to be well controlled at this particular time no major changes will be made. 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 criteria. Please note revised GLUCOSE reference range effective 2017. LAB L501.1000 7-18 mg/dL High BUN 19 LAB L501.1100 0.70-1.30 mg/dL Normal CREAT,SERUM 0.73 Result Comment: The validity of the calculated GFR AND GFRAA in patients over 70 years has not been determined. Clinical correlation is essential. LAB L501.1110 >60 mL/min Normal EST GFR 125 Result Comment: Non- GFR Calc LAB L501.1115 >60 mL/min Normal EST GFR - AA 151 Result Comment: GFR Calc LAB L501.1300 10-20 RATIO High BUN/CRE 26.1 LAB L501.2200 8.5-10.1 mg/dL CA Normal 9.4 LAB L501.5300 136-145 mmol/L NA Normal 142 LAB L501.5600 3.5-5.1 mmol/L K Normal 4.0 LAB L501.5900 98-107 mmol/L CL Normal 102 LAB L501.6100 21.0-32.0 mmol/L Normal CO2 31.0 LAB L501.6200 5-15 Normal GAP 9 Performed By: #### L500.2500, L501.5200 #### [facility] [address] [place], [address] MAGNESIUM Collected: 05/26/2018 Status: F Source: [place] 1:43 PM [facility] REPOSITORY TYPE CODE TESTS RESULT OUT OF RANGE REFERENCE UNITS LAB L501.5200 1.6-2.6 mg/dL Normal MG 2.3 Performed By: #### L500.2500, L501.5200 #### [facility] [address] [place], [address] 12 LEAD ELECTROCARDIOGRAM Observed: 05/20/2018 Status: F Source: [place] 2:31 PM [facility] REPOSITORY [facility] Cardiovascular Services [address] [place] [address] 12 Lead EKG 05/18/18 1601 MR#: [id number] Acct: [id number] Name: KATRINA MELVIN Rep #: [id number] : 1975 42 From: Murray Hawkins MD Attending Dr: Status: DEP ER Ordering Dr: Priscila Dotson DO Date: 05/18/18 Location: ED Sex: M C Admitted: Test Reason : CP Blood Pressure : / mmHG Vent. Rate : 080 BPM Atrial Rate : 080 BPM P-R Int : 142 ms QRS Dur : 102 ms QT Int : 382 ms P-R-T Axes : 004 026 043 degrees QTc Int : 440 ms Normal sinus rhythm Normal ECG Confirmed by MURRAY HAWKINS MD ([id number]), tape editor NIRAJ HOFF ([id number]) on 05/20/2018 2:31:12 PM Referred By: LOIS/CHRISTEL Confirmed By:MURRAY HAWKINS MD 05/20/18 1431 Date Murray Hawkins MD CC: Jeniffer Houston DO; Priscila Dotson DO Signed URGENT CARE VISIT Observed: 05/19/2018 Status: F Source: [place] REPORT 7:53 AM [facility] REPOSITORY [facility] [address] [place] [address] [address] [place] [address] OFFICE VISIT Date of Service: 05/19/18 MR#: [id number] Acct: [id number] Name: KATRINA MELVIN Rep #: [id number] : 1975 Provider: Chandra CUMMINGS Age/Sex: 42/M Location: [facility] Status: Signed Intake Vital Signs05/19/18 Body Mass Index (BMI) 38.0 05/19/18 Height 6 ft 4 in 05/19/18 Weight: 312 lb 05/19/18 Body Mass Index (BMI) 38.0 05/19/18 Blood Pressure 132/82 H Intake Visit Reasons: SOB,COUGH,CONGESTION AND FEVER Chief Complaint: Cough, fatigue Ui Ux Developer Required: No Accompanied by: Is patient in pain?: No Allergies codeine Allergy (Verified 05/19/18 07:04) Other perflutren [From DefinAxonify] Adverse Reaction (Verified 05/19/18 07:04) Pain in joints Medications Dulaglutide [Trulicity] 1.5 mg SQ GUPTA 12/10/17 [History Confirmed 05/19/18] Enoxaparin [Lovenox] 135 mg SC Q12@0600,1800 12/10/17 [History Confirmed 05/19/18] Methimazole [Tapazole] 7.5 mg PO DAILY 12/10/17 [History Confirmed 05/19/18] lisinopril 10 mg tablet 10 mg PO DAILY #30 tab 03/04/18 [Rx Confirmed 05/19/18] Cholecalciferol (Vitamin D3) [Vitamin D3] 5,000 unit PO DAILY 04/24/18 [History Confirmed 05/19/18] Multivitamin [Daily Multiple Vitamin] 1 ea PO DAILY 04/24/18 [History Confirmed 05/19/18] carvedilol 12.5 mg tablet 12.5 mg PO BID #180 tab 04/28/18 [Rx Confirmed 05/19/18] metformin 1,000 mg tablet 500 mg PO TID tab 04/28/18 [History Confirmed 05/19/18] oseltamivir 75 mg capsule 75 mg PO BID 5 Days #10 cap 05/19/18 [Rx Confirmed 05/19/18] [facility] Medical History Idiopathic cardiomyopathy (Chronic) 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) Diastolic dysfunction with heart failure (Acute) Thyroid disorder (Chronic) DVT of leg (deep venous thrombosis) (Chronic) Pulmonary embolism (Resolved) HTN (hypertension) (Chronic) Medial meniscus tear (Chronic) Type 2 diabetes mellitus (Chronic) Contusion of left knee, initial encounter (Resolved) Other tear of medial meniscus, current injury, left knee, subsequent encounter (Resolved) Other internal derangements of left knee (Inactive) Other tear of lateral meniscus, current injury, left knee, subsequent encounter (Inactive) Pain of left knee after injury (Inactive) Surgical History Partially torn MCL (Inactive) Torn PCL (Inactive) Torn meniscus (Inactive) torn cartilage behind knee (Inactive) Family History Father Hypertension Social History Smoking Status: Never smoker how long ago did patient quit smokin, 2pks/day second hand exposure: Yes alcohol intake: current alcohol intake frequency: a few times a month substance use type: does not use HPI HPI Chief Complaint: Cough, fatigue Details: KATRINA MELVIN, is a 42 M who presents to the office today for evaluation of fever, dry cough, headache, body aches, fatigue. Patient noted these symptoms began yesterday midday, reported to [facility] emergency department, considering patient's past medical history, had head CT, chest x-ray, lower extremity ultrasound with results all being negative therefore is released same day with echocardiogram yet to be scheduled. notes upon checking his temperature at home last evening he had a temperature of 102.0 Fahrenheit, patient continues to have dry cough, body aches, headaches, and fatigue. Patient admits to not receiving the influenza vaccine this year. He states having tried NyQuil [id number] last evening to assist with symptoms but this gave him no relief. He notes no other associated symptoms and no other alleviating or aggravating factors. ROS Const Constitutional: No other (ROS negative x10 other than as noted above) Exam Const General: cooperative, healthy appearing, no acute distress, uncomfortable Nutritional Appearance: average body habitus Orientation: alert, awake, oriented x3 HENMT Head: normal to inspection Ears: hearing grossly normal bilaterally, external ears normal, TM's normal bilaterally (except trace erythema left TM), EAC's normal Nose: external nose normal, nares normal, septum normal, no nasal discharge Face and sinus: normal facial exam, face symmetric, sinuses nontender Mouth: oral mucosae normal, lip normal, tongue normal Teeth and gingiva: gingiva normal, dentition normal Throat: uvula midline, tonsils normal, posterior oropharynx normal, no postnasal drainage Eyes General: appearance normal, both eyes and all related structures Neck Neck: normal visual inspection, full ROM, no lymphadenopathy, no meningeal signs, supple Neck mass: No Thyroid: thyroid normal Lymphatic: no lymphadenopathy noted Chest Chest palpation AND inspection: normal inspection of the chest Resp Effort AND Inspection: normal respiratory effort, able to speak in complete sentences, symmetric chest movement, cough Quality of cough: dry Auscultation: Bilateral: Clear to Auscultation Cardio Palpation: normal PMI Rate: regular rate Rhythm: regular rhythm Heart Sounds: S1 normal, S2 normal, no gallops, no murmurs, no rubs Pulses: radial pulses present GI Inspection: normal to inspection Skin General: no rashes or lesions noted Neuro General: alert, awake, oriented x3, gait normal Cognition: normal cognition Speech: speech normal Gait: normal gait Motor: muscle tone normal throughout Sensory Exam: no sensory deficits noted Psych Appearance: grossly normal Mental Status: mental status grossly normal Mood: congruent mood Affect: normal affect Speech and Movement: speech and movement normal Attitude: cooperative Thought Process: normal Thought Content: normal Judgment: judgment good Assessment AND Plan Problems 1. Influenza J11.1 Plan - by presentation. Though today's rapid flu test was negative, explained to patient and spouse that the sensitivity on this test is only 50-70%, and considering the symptoms the patient is presenting as described in the HPI coupled with examination findings, recommend Tamiflu as prescribed today. Clear fluids, rest, Tylenol as needed for symptomatic relief. Keep follow-up echocardiogram and cardiology follow-up as previously established. Work excuse for today and tomorrow. Follow-up with PCP on an as-needed basis, or report to emergency room should symptoms worsen or any other concerns develop. Patient and spouse both state acknowledging understanding all the above. This note was generated with [employer] dictation software. It may contain incorrect words, spelling, and punctuation that were not noted in checking the note before signing. Medications New: Coding Level of Care Code Off vis,est,level 3 Diagnoses Influenza J11.1 05/19/18 0753 <Electronically signed by Chandra CUMMINGS> Date Chandra CUMMINGS Cosigner Signature: Date (if applicable) CC: DISCHARGE INSTRUCTION Observed: 05/18/2018 Status: F Source: [place] 5:53 PM [facility] REPOSITORY [facility] Medical Records Department [address] [place] [address] Discharge Instruction 05/18/18 175 MR#: [id number] Acct: [id number] Name: KATRINA MELVIN Rep #: [id number] : 1975 42 From: Priscila Dotson DO PCP: Jeniffer Houston DO Status: REG ER ED Disposition - Plan for ED Patient: Chief Complaint: Chest Pain Instructions: ED Chest Pain Atypical Unkn Cause, ED Dyspnea Shortness of Breath Referrals: Jeniffer Houston DO [Primary Care Provider] - Murray Hawkins MD [STAFF PHYSICIAN] - 3-5 Days Additional Instructions: Follow up with cardiology for outpatient echocardiogram What to do if you have Problems For any increased pain, shortness of breath, bleeding, nausea or vomiting, chest pain, or any unexpected problems, contact your Primary Care Provider. Call [facility] ([phone]) or report to the closest Emergency Room. Call 911 if necessary. 05/18/181752 <Electronically signed by Priscila Dotson DO> Date Priscila Dotson DO Cosigner Signature (If Indicated): Date CC: Jeniffer Houston DO EMERGENCY DEPARTMENT Observed: 05/18/2018 Status: F Source: [place] SUMMARY 5:51 PM [facility] REPOSITORY [facility] Medical Records Department [address] [place] [address] Emergency Department Summary 05/18/18 1747 MR#: [id number] Acct: [id number] Name: KATRINA MELVIN Rep #: [id number] : 1975 42 From: Priscila Dotson DO PCP: Jeniffer Houston DO Status: REG ER - ER Visit Summary Date of Service: 05/18/18 Chief Complaint: [Chest pain and shortness of breath] History of Present Illness: The patient is a 42 M [presents the emergency department complaint of increasing shortness of breath over last several weeks. Patient complains of exertional dyspnea. Patient also with chest pressure intermittently but worsening today. Patient complains of generalized fatigue. Patient has a history of cardiomyopathy of unknown etiology. Last ejection fraction via MRI in March was 32%. In February he had an echo that showed an ejection fraction of 40%. And had a heart catheterization that showed normal coronary arteries that was done March 04.] Patient also complains of head pressure today. He describes pressure in his head especially with leaning forward and bending over. Patient asking if he could have his ejection fraction checked again. Patient currently on Lovenox for history of PE and DVT . Patient also describes swelling in his lower extremities intermittently. Patient had significant swelling in his left lower extremity yesterday. Physical Examination: [HEENT-PERRLA, EOMI. Cranial nerves II through XII grossly intact. TMs clear. Mucous membranes moist. No adenopathy. Cardiovascular-regular rate and rhythm without murmur or ectopy Lungs-clear to auscultation, chest wall stable without crepitus or subcu emphysema Abdomen-normoactive bowel sounds, soft, nontender, no rebound or rigidity, no peritoneal signs. Extremities-intact 4, normal range of motion, normal pulses, atraumatic] Test Results: [EKG obtained arrival shows sinus rhythm with a ventricular rate of 80 bpm with no acute I segment changes. CBC with differential showed a white count 7.1, hemoglobin 13.8, hematocrit 41, platelets 193. Chemistries unremarkable. Troponin was less than 0.015. BNP was 306. His BNP on 04/24 was 45. Chest x-ray showed chronic interstitial changes otherwise nothing acute. CT scan of the brain without contrast obtained was negative for hemorrhage or acute process. Left lower extremity venous duplex was negative for DVT.] Emergency Department Course and Treatment: [Case was discussed with Dr. Al Frey who was covering for Dr. Murray Hawkins. At this point no changes in medications were recommended. Patient will be contacted about obtaining an outpatient echocardiogram.] Treatment Plan: [Follow-up with cardiology for outpatient echo] Disposition: [Discharged home in stable condition] Impression: [Chest pain Dyspnea] This note was generated with [employer] dictation software. It may contain incorrect words, spelling, and punctuation that were not noted in review of the chart prior to signing ED Disposition - Plan for ED Patient: Chief Complaint: Chest Pain Referrals: Jeniffer Houston, DO [Primary Care Provider] - What to do if you have Problems For any increased pain, shortness of breath, bleeding, nausea or vomiting, chest pain, or any unexpected problems, contact your Primary Care Provider. Call [facility] ([phone]) or report to the closest Emergency Room. Call 911 if necessary. 05/18/18 9311 <Electronically signed by Priscila Dotson DO> Date Priscila Dotson DO Cosigner Signature (If Indicated): Date CC: Jeniffer Houston DO VENOUS DUPLEX LOWER Observed: 05/18/2018 Status: F Source: [place] EXTREMITY 5:41 PM [facility] REPOSITORY [facility] Cardiovascular Services [address] [place] [address] Venous Duplex US, Unilateral 05/18/18 1632 MR#: [id number] Acct: [id number] Name: KATRINA MELVIN Rep #: [id number] : 1975 42 From: Ricky Goff MD Attending Dr: Status: REG ER Ordering Dr: Priscila Dotson DO Date: 05/18/18 Location: ED Sex: M C Admitted: Reason For Study: LLE swelling RIGHT LEFT CFV is compressible, spontaneous, phasic, GSV is normal. competent and demonstrates normal CFV is compressible, spontaneous, phasic, augmentation. competent, and demonstrates normal Procedure augmentation. Exam performed portable in ED. FV is compressible, spontaneous, phasic, The study was technically difficult. competent and demonstrates normal The exam was diagnostic. augmentation. A preliminary report was called and/or faxed POP V is compressible, spontaneous, phasic, to DR Dotson AND ED. competent and demonstrates normal augmentation. T/P Trunk is compressible. PTV is compressible. LT PerV is compressible. <> Interpretation Summary There is no evidence of left lower extremity deep vein thrombosis. Left greater saphenous vein appears patent and compressible segmentally. Normal flow patterns right common femoral vein. Ordering Physician: Priscila Dotson Referring Physician: Jeniffer Houston Performed By: Naomy Lau, PAO, RVT 05/18/18 1740 Date Ricky Goff MD CC: Jeniffer Houston DO; Priscila Dotson DO Date Dictated: 05/18/18 1632 Date Transcribed: 05/18/18 1740 Vest Baster: Signed CHEST 1 VIEW Observed: 05/18/2018 Status: F Source: [place] (PORTABLE) 4:22 PM [facility] REPOSITORY [facility] Imaging Services [address] [place] [address] Chest 1 View (Portable) MR#: [id number] Acct: [id number] Name: KATRINA MELVIN Rep #: [id number] : 1975 M 42 From: Ric Noel MD PCP: Jeniffer Houston DO Status: PRE ER Study: Chest 1 View (Portable) Date of Exam: 05/18/18 Exam# [id number] Ordering Dr: Priscila Dotson DO STUDY: X-RAY CHEST REASON FOR EXAM: Male, 42 years old. Worsening chest pressure TECHNIQUE: Single AP portable view of the chest. COMPARISON: 04/24/2018 FINDINGS: EKG leads overlie the chest There are interstitial fibrotic changes of the lungs. There is no demonstrated pleural abnormality. Normal size heart. Normal mediastinum and suly. Normal visualized pulmonary arteries. Normal visualized aortic arch and descending thoracic aorta. Normal visualized thoracic spine. Normal visualized ribs, clavicles, and shoulders. There is no demonstrated abnormality of the visualized soft tissue structures of the upper abdomen. RAD/Chest 1 View (Portable) IMPRESSION: Chronic interstitial changes, no superimposed acute pulmonary process Electronically Signed: Leonel Noel MD at 16:49 EST , Service support , CC: Jeniffer Houston DO; Priscila Dotson DO Vest Baster: Signed BRAIN/HEAD WITHOUT Observed: 05/18/2018 Status: F Source: [place] CONTRAST 4:22 PM [facility] HOSPITAL REPOSITORY [facility] Imaging Services [address] [place] [address] Brain/Head without Contrast MR#: [id number] Acct: [id number] Name: KATRINA MELVIN Rep #: [id number] : 1975 M 42 From: Ric Noel MD PCP: Jeniffer Houston DO Status: REG ER Study: Brain/Head without Contrast Date of Exam: 05/18/18 Exam# [id number] Ordering Dr: Priscila Dotson DO STUDY: CT BRAIN WITHOUT CONTRAST REASON FOR EXAM: Male, 42 years old. Headache RADIATION DOSAGE (If Supplied By Facility): CTDIvol = ( 44.99 ) mGy, DLP = ( 796.11 ) mGycm TECHNIQUE: Transaxial CT imaging of the brain was performed without administration of intravenous contrast material. Individualized dose optimization techniques were used for this CT. COMPARISON: MRI from 06/21/2016 FINDINGS: Normal soft tissue structures. Normal calvarium. Normal size ventricles and extra-axial spaces for the patient's age. Normal white matter tracts of the cerebral hemispheres. Normal basal ganglia and thalami. Normal brainstem. Normal cerebellum. There is no intracranial hemorrhage. There are no findings of an acute ischemic infarction. Normal visualized paranasal sinuses. CT/Brain/Head without Contrast IMPRESSION: Normal unenhanced CT scan of the brain. Electronically Signed: Leonel Noel MD at 17:37 EST , Service support , CC: Jeniffer Houston DO; Priscila Dotson DO Vest Baster: Signed CBC W/DIFF, AUTOMATED Collected: 05/18/2018 Status: F Source: [place] 4:09 PM [facility] REPOSITORY TYPE CODE TESTS RESULT OUT OF RANGE REFERENCE UNITS LAB L100.1000 4.4-11.0 K/mm3 Normal WBC 7.1 LAB L100.1200 4.6-6.2 M/mm3 Low RBC 4.56 LAB L100.1300 13.0-16.5 g/dl Normal HGB 13.8 LAB L100.1400 40-54 % Normal HCT 41.4 LAB L100.1500 80-94 fL Normal MCV 90.8 LAB L100.1600 27.0-32.0 pg Normal MCH 30.3 LAB L100.1700 32-36 g/gl Normal MCHC 33.3 LAB L100.1810 11.6-14.6 % Normal RDW CV 14.2 LAB L100.1820 35.1-43.9 fl High RDW SD 46.5 LAB L100.1900 150-450 K/mm3 Normal PLT 193 LAB L100.2000 6.2-12.0 fl Normal MPV 9.9 LAB L100.2100 47-70 % Normal NEUT% 68.7 LAB L100.2200 19-41 % Normal LY% 21.2 LAB L100.2300 0-10 % Normal MONO% 9.0 LAB L100.2400 0-5 % Normal EO% 1.0 LAB L100.2500 0-1 % Normal BASO% 0.1 LAB L100.2550 0.0-0.9 % Normal IM GRAN % 0.000 Result Comment: IG% - Immature Granulocytes (promyelocytes, myelocytes and metamyelocytes) > 1% indicates that a LEFT SHIFT is Present. LAB L100.2620 2.0-7.7 X10 3/uL Normal Absolute Neut 4.9 LAB L100.2720 0.83-4.51 X10 3/ul Normal Absolute Lymph 1.50 Performed By: #### L100.0100, L503.6620 #### [facility] [address] [place], [place], [id number] BNP,B-TYPE NATRIURETIC Collected: 05/18/2018 Status: F Source: [place] PEPTIDE 4:09 PM [facility] REPOSITORY TYPE CODE TESTS RESULT OUT OF RANGE REFERENCE UNITS LAB L503.6620 0-100 pg/mL High B-TYPE 306.4 GARRETT PEP Performed By: #### L100.0100, L503.6620 #### [facility] [address] [place], [place], [id number] BASIC METABOLIC Collected: 05/18/2018 Status: F Source: [place] PROFILE (BMP) 4:09 PM [facility] REPOSITORY TYPE CODE TESTS RESULT OUT OF RANGE REFERENCE UNITS LAB L501.0100 74-106 mg/dL High GLU 124 Result Comment: Fasting Glucose result from 100 to 125 mg/dL suggests IMPAIRED HOMEOSTASIS per A.D.A. criteria. Please note revised GLUCOSE reference range effective 2017. LAB L501.1000 7-18 mg/dL High BUN 19 LAB L501.1100 0.70-1.30 mg/dL Normal CREAT,SERUM 0.78 Result Comment: The validity of the calculated GFR AND GFRAA in patients over 70 years has not been determined. Clinical correlation is essential. LAB L501.1110 >60 mL/min Normal EST GFR 116 Result Comment: Non- GFR Calc LAB L501.1115 >60 mL/min Normal EST GFR - AA 141 Result Comment: GFR Calc LAB L501.1255 ml/min Normal Estimated CRCL 151.47 LAB L501.1300 10-20 RATIO High BUN/CRE 24.5 LAB L501.2200 8.5-10 mg/dL .1 CA Normal 8.8 LAB L501.5300 136-14 mmol/L High 5 NA 146 LAB L501.5600 3.5-5. mmol/L 1 K Normal 3.7 LAB L501.5900 98-107 mmol/L High CL 109 LAB L501.6100 21.0-3 mmol/L 2.0 CO2 Normal 29.0 LAB L501.6200 5-15 GAP Normal 8 Performed By: #### L500.2500, L501.4010 #### [facility] [address] [place], [address] TROPONIN-I Collected: 05/18/2018 Status: F Source: [place] 4:09 PM [facility] REPOSITORY TYPE CODE TESTS RESULT OUT OF RANGE REFERENCE UNITS LAB L501.4010 <0.045 ng/mL Normal < 0.015 TROPONIN-I Result Comment: TROPONIN-I EXPECTED VALUES <0.045 Negative 0.045 - 0.590 Consistent with Cardiac Damage > OR = 0.600 Critical Value Not every elevated troponin is indicative of OR. These values should be used with clinical judgement in examining the patient's clinical picture for diagnosis. To establish a diagnosis of OR versus myocardial injury, there must be a demonstrated rise and/or fall in the troponin values, in addition to ischemic symptoms, EKG changes, new regional wall motion abnormality, and/or angiographical evidence. PLEASE NOTE: REFERENCE RANGES EDITED 17 Performed By: #### L500.2500, L501.4010 #### [facility] [address] [place], [address] CARDIOLOGY VISIT Observed: 04/28/2018 Status: F Source: [place] REPORT 1:29 PM [facility] REPOSITORY [facility] [address] [place] [address] OFFICE VISIT Date of Service: 04/28/18 MR#: [id number] Acct: [id number] Name: KATRINA MELVIN Rep #: [id number] : 1975 Provider: Murray Hawkins MD Age/Sex: 42/M Location: [facility] Status: Signed HPI HPI Chief Complaint: Follow up Details: KATRINA MELVIN, is a 42 M who presents to the office today for follow up. He says that he is here to evaluate the status of his heart. He is a gentleman with a history of previous pulmonary embolism and DVT in July 2016. At that time he was noted to have an ejection fraction of 55% and right ventricular systolic pressure 33 mmHg. He says that he had a repeat echocardiogram done in October 2016 with demonstrated ejection fraction of 55% and right ventricular systolic pressure of 29 mmHg. He has had occasional sharp chest pain stabbing and some shortness of breath and fatigue. As part of the workup for the above he had a repeat echocardiogram done in December 2017 with demonstrated ejection fraction of 50% with pulmonary artery systolic pressure of 38 mmHg. He was noted to have stage II diastolic dysfunction. Due to the above it was felt that he may have a cardiac condition and he was referred here for further cardiac evaluation. We performed a cardiac catheterization on him with demonstrated no obstructive coronary disease and an ejection fraction was estimated to be 40%. I sent him for a cardiac MRI at the [facility] and his left ventricular ejection fraction was estimated to be 32% and his right ventricular systolic function was 40%. He has been started on lisinopril as well as carvedilol. He denies any neck arm or jaw discomfort suggest angina no chest heaviness to suggest angina. He however did present to the emergency room recently with chest pain which was thought to be atypical and BT [employer] was noted to be less than 50. He has been compliant with all his anticoagulation and says that he has been worked up exhaustively and cannot go off his Lovenox at this particular time. His physical exam demonstrates clear lung fischer regular rate and rhythm and no pedal edema. Intake Vital Signs04/28/18 Height 6 ft 4 in 04/28/18 Weight: 295 lb 04/28/18 Body Mass Index (BMI) 35.9 04/28/18 Blood Pressure 132/78 H 04/28/18 Blood Pressure Location Lt brachial Intake Visit Reasons: s/p Cardiac MRI Ui Ux Developer Required: No Is patient in pain?: Yes Allergies codeine Allergy (Verified 04/28/18 11:34) Other perflutren [From DefinAxonify] Adverse Reaction (Verified 04/28/18 11:34) Pain in joints Medications Dulaglutide [Trulicity] 1.5 mg SQ Q7D 12/10/17 [History Confirmed 04/28/18] Enoxaparin [Lovenox] 135 mg SC Q12@0600,1800 12/10/17 [History Confirmed 04/28/18] Methimazole [Tapazole] 7.5 mg PO DAILY 12/10/17 [History Confirmed 04/28/18] lisinopril 10 mg tablet 10 mg PO DAILY #30 tab 03/04/18 [Rx Confirmed 04/28/18] Cholecalciferol (Vitamin D3) [Vitamin D3] 5,000 unit PO DAILY 04/24/18 [History Confirmed 04/28/18] Cinnamon Bark [Cinnamon] 1,000 mg PO DAILY 04/24/18 [History Confirmed 04/28/18] Multivitamin [Daily Multiple Vitamin] 1 ea PO DAILY 04/24/18 [History Confirmed 04/28/18] carvedilol 12.5 mg tablet 12.5 mg PO BID #180 tab 04/28/18 [Rx] metformin 1,000 mg tablet 500 mg PO TID tab 04/28/18 [History Confirmed 04/28/18] [facility] Medical History Idiopathic cardiomyopathy (Chronic) 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) Diastolic dysfunction with heart failure (Acute) Thyroid disorder (Chronic) DVT of leg (deep venous thrombosis) (Chronic) Pulmonary embolism (Resolved) HTN (hypertension) (Chronic) Medial meniscus tear (Chronic) Type 2 diabetes mellitus (Chronic) Contusion of left knee, initial encounter (Resolved) Other tear of medial meniscus, current injury, left knee, subsequent encounter (Resolved) Other internal derangements of left knee (Inactive) Other tear of lateral meniscus, current injury, left knee, subsequent encounter (Inactive) Pain of left knee after injury (Inactive) Surgical History Partially torn MCL (Inactive) Torn PCL (Inactive) Torn meniscus (Inactive) torn cartilage behind knee (Inactive) Family History Father Hypertension Social History Smoking Status: Never smoker how long ago did patient quit smokin, 2pks/day second hand exposure: Yes alcohol intake: current alcohol intake frequency: a few times a month substance use type: does not use ROS Const Const: Negative for fatigue, weakness, night sweats, excessive sweating, frequent falls, headache(s) or daytime sleepiness Eyes Eyes: Negative for loss of peripheral vision, transient loss of vision, blind spots, double vision or blurry vision ENT ENT: Negative for headache(s), dizziness, balance problems, Nosebleed/epistaxis, tongue swelling or lip swelling Cardio Chest Pain: Yes Frequency: daily Character: dull Onset: exercise, at rest Palpitations: No Edema: None, Bilateral (occasionally) Muscle aches with walking: None Resp Respiratory: Negative for SOB at rest, SOB orthopnea\SOB lying down, Cough, paroxysmal nocturnal dyspnea or SOB with activity GI GI: Negative nausea, vomiting, heartburn, black,tarry stools or bright, red blood in stools : Negative for hematuria Musc Musc: Negative for balance problems, muscle aches/ myalgia, muscle weakness or joint pain Skin Skin: Negative non-healing lesions, unusual bruising or rash Neuro Neuro: Negative for weakness, frequent falls, headache(s), double vision, dizziness, lightheadedness, orthostatic symptoms, blurry vision or lack of coordination Anuj Hematologic/Lymphatic: Negative for easy bruising or easy bleeding Endo Endo: Negative for fatigue, excessive sweating, cold intolerance, heat intolerance, increased thirst/drinking or hair loss Psych Psych: Negative for anxiety or depression Allergy Allergy/Immunology: Negative for throat swelling, Negative for tongue swelling, Negative for hives, Negative for rash, Negative for lip swelling Cardiology Exam Const Appearance: cooperative, healthy appearing, well developed, well groomed and no acute distress Nutritional Appearance: well nourished and average body habitus Orientation: alert, awake and oriented x3 Head Head: normal to inspection, normocephalic and atraumatic Ears: hearing grossly normal bilaterally and external ears normal Nose: external nose normal, nasal mucous membranes and turbinates normal, nares normal, septum normal, no nasal discharge Face and Sinus: face symmetric Mouth: oral mucosae normal, tongue normal, oropharynx normal and moist mucous membranes Teeth and gingiva: dentition normal Throat: posterior oropharynx normal, tonsils normal and uvula midline Eyes General: appearance normal, both eyes and all related structures Eyelids: eyelids normal Conjunctivae: conjunctivae normal Pupils: PERRL, normal by confrontation and accommodation normal EOM: EOM intact bilaterally Neck Neck: normal visual inspection, trachea midline and no JVD JVD: +5 Carotids: normal carotid upstroke and bounding pulses Chest Chest inspection: normal inspection of the chest, symmetric chest movement and normal respiratory effort Auscultation: Bilateral: Clear to Auscultation Cardio Palpation: normal PMI Rate: regular rate Rhythm: regular rhythm Heart sounds: S1 normal, S2 normal and normal, physiologic split S2; negative rub, gallop or murmur GI GI: normal to inspection, soft, no hepatosplenomegaly and bowel sounds present Neuro General: alert, awake, oriented x3, no focal sensory deficit, gait normal and moves all extremities Skin Skin: no rashes or lesions noted Extremities Pulses: Normal: Right Femoral Pulse, Left Femoral Pulse, Right Dorsalis Pedis Pulse, Left Dorsalis Pedis Pulse, Right Posterior Tibial Pulse, Left Posterior Tibial Pulse, Right Radial Pulse, Left Radial Pulse Lower Extremity Edema: None: Bilateral Musculoskel Musculoskeletal: No joint tenderness Psych Psychological: normal affect Assessment AND Plan 1. Idiopathic cardiomyopathy I42.8 Plan He does have a history of ischemic cardiomyopathy the etiology of which is not entirely clear to me at this time I have had a long explanation with him and his and suggested that I doubt that this is due to pulmonary embolism. He will continue on the carvedilol increasing his carvedilol to 12.5 mg twice a day. He should continue this for a month and then call us and we will increase it to 25 mg twice a day. He will stay on the same dose of the lisinopril. 2. HTN (hypertension) I10 Plan His blood pressure appears to be under good control on the current medical therapy that increases as described above would be undertaken. 3. DVT of leg (deep venous thrombosis) I82.409 Plan He has a chronic history of the above and he remains on lifelong anticoagulation with Lovenox. 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) Coding Level of Care Code Off vis,est,level 3 Diagnoses Idiopathic cardiomyopathy I42.8 HTN (hypertension) I10 DVT of leg (deep venous thrombosis) I82.409 Coding Level of Care Code Off vis,est,level 3 Diagnoses Idiopathic cardiomyopathy I42.8 HTN (hypertension) I10 DVT of leg (deep venous thrombosis) I82.409 04/28/18 1329 <Electronically signed by Murray Hawkins MD> Date Murray Hawkins MD Cosigner Signature: Date (if applicable) CC: Jeniffer Houston DO 12 LEAD ELECTROCARDIOGRAM Observed: 04/27/2018 Status: F Source: [place] 1:04 PM [facility] REPOSITORY [facility] Cardiovascular Services [address] [place] [address] 12 Lead EKG 04/24/18 1641 MR#: [id number] Acct: [id number] Name: KATRINA MELVIN Rep #: [id number] : 1975 42 From: Murray Hawkins MD Attending Dr: Status: DEP ER Ordering Dr: Al Snyder MD Date: 04/24/18 Location: ED Sex: M C Admitted: Test Reason : CHEST PAIN Blood Pressure : / mmHG Vent. Rate : 081 BPM Atrial Rate : 081 BPM P-R Int : 166 ms QRS Dur : 108 ms QT Int : 378 ms P-R-T Axes : 037 019 067 degrees QTc Int : 439 ms Normal sinus rhythm Normal ECG Confirmed by MURRAY HAWKINS MD ([id number]), tape editor JOELLEN GOODEN ([id number]) on 04/27/2018 1:04:16 PM Referred By: DC Confirmed By:MURRAY HAWKINS MD 04/27/18 1304 Date Murray Hawkins MD CC: Jeniffer Houston DO; Al Snyder MD Signed EMERGENCY DEPARTMENT Observed: 04/24/2018 Status: F Source: [place] SUMMARY 10:50 PM [facility] REPOSITORY [facility] Medical Records Department [address] [place] [address] Emergency Department Summary 04/24/18 1653 MR#: [id number] Acct: [id number] Name: KATRINA MELVIN Rep #: [id number] : 1975 42 From: Al Snyder MD PCP: Jeniffer Houston DO Status: DEP ER - ER Visit Summary Date of Service: 04/24/18 Chief Complaint: Chest pain History of Present Illness: The patient is a 42 M chest pain since this morning. He has a complicated history of major PE on Lovenox shots due to failure of Xarelto. He recently had an unremarkable catheterization as well as cardiac MRI which showed an EF in the 30s per him. Patient has no edema, he does get winded when he walks across a field. No fever chills or cough. Physical Examination: Not appear in acute distress. Moist mucous membranes, no obvious facial deformity No C-spine tenderness supple neck. Regular rate and rhythm without any obvious murmurs Clear lungs bilaterally speaking in full sentences without any obvious respiratory distress Abdomen soft and nontender no guarding or rebound Moves all extremities without any difficulty or pain. Skin does not show any obvious rashes or lesions, no trauma. Alert oriented 3 with no gross focal deficit Emergency Department Course and Treatment: Patient has an unremarkable workup. He had a negative catheterization recently. He has no signs of CHF. I discussed with Dr. Hawkins and patient will be seen outpatient. He is currently stable. Discharge stable condition Impression: Chest pain This note was generated with [employer] dictation software. It may contain incorrect words, spelling, and punctuation that were not noted in review of the chart prior to signing ED Disposition - Plan for ED Patient: Disposition: Home or Assisted Living Chief Complaint: Chest Pain Instructions: ED Chest Pain Noncardiac Ch Referrals: Murray Hawkins MD [STAFF PHYSICIAN] - 3-5 Days What to do if you have Problems For any increased pain, shortness of breath, bleeding, nausea or vomiting, chest pain, or any unexpected problems, contact your Primary Care Provider. Call [facility] ([phone]) or report to the closest Emergency Room. Call 911 if necessary. 04/24/18 2250 <Electronically signed by Al Snyder MD> Date Al Snyder MD Cosigner Signature (If Indicated): Date CC: Jeniffer Houston DO CHEST 1 VIEW Observed: 04/24/2018 Status: F Source: [place] (PORTABLE) 4:53 PM [facility] REPOSITORY [facility] Imaging Services [address] [place] [address] Chest 1 View (Portable) MR#: [id number] Acct: [id number] Name: KATRINA MELVIN Rep #: [id number] : 1975 M 42 From: Shayne Crocker MD PCP: Jeniffer Houston DO Status: REG ER Study: Chest 1 View (Portable) Date of Exam: 04/24/18 Exam# [id number] Ordering Dr: Al Snyder MD STUDY: X-RAY CHEST REASON FOR EXAM: Male, 42 years old. Chest pain. TECHNIQUE: Single frontal view of the chest. COMPARISON: December 10, 2017 FINDINGS: The lungs are clear and expanded. There is no demonstrated pleural abnormality. Normal size heart. Normal mediastinum and suly. Normal visualized pulmonary arteries. Normal visualized aortic arch and descending thoracic aorta. Normal visualized thoracic spine. Normal visualized ribs, clavicles, and shoulders. There is no demonstrated abnormality of the visualized soft tissue structures of the upper abdomen. RAD/Chest 1 View (Portable) IMPRESSION: Normal x-ray examination of the chest. Electronically Signed: Shayne Crocker MD at 17:18 EST , Service support , CC: Jeniffer Houston DO; Al Snyder MD Vest Baster: Signed CBC W/DIFF, AUTOMATED Collected: 04/24/2018 Status: F Source: [place] 4:48 PM [facility] REPOSITORY TYPE CODE TESTS RESULT OUT OF RANGE REFERENCE UNITS LAB L100.1000 4.4-11.0 K/mm3 Normal WBC 8.0 LAB L100.1200 4.6-6.2 M/mm3 Normal RBC 4.84 LAB L100.1300 13.0-16.5 g/dl Normal HGB 14.6 LAB L100.1400 40-54 % Normal HCT 43.9 LAB L100.1500 80-94 fL Normal MCV 90.7 LAB L100.1600 27.0-32.0 pg Normal MCH 30.2 LAB L100.1700 32-36 g/gl Normal MCHC 33.3 LAB L100.1810 11.6-14.6 % Normal RDW CV 13.9 LAB L100.1820 35.1-43.9 fl High RDW SD 45.5 LAB L100.1900 150-450 K/mm3 Normal PLT 216 LAB L100.2000 6.2-12.0 fl Normal MPV 9.1 LAB L100.2100 47-70 % Normal NEUT% 60.0 LAB L100.2200 19-41 % Normal LY% 31.0 LAB L100.2300 0-10 % Normal MONO% 7.8 LAB L100.2400 0-5 % Normal EO% 0.6 LAB L100.2500 0-1 % Normal BASO% 0.3 LAB L100.2550 0.0-0.9 % Normal IM GRAN % 0.300 Result Comment: IG% - Immature Granulocytes (promyelocytes, myelocytes and metamyelocytes) > 1% indicates that a LEFT SHIFT is Present. LAB L100.2620 2.0-7.7 X10 3/uL Normal Absolute Neut 4.8 LAB L100.2720 0.83-4.51 X10 3/ul Normal Absolute Lymph 2.47 Performed By: #### L100.0100 #### [facility] [address] [place], [address] BASIC METABOLIC Collected: 04/24/2018 Status: F Source: [place] PROFILE (BMP) 4:48 PM [facility] REPOSITORY TYPE CODE TESTS RESULT OUT OF RANGE REFERENCE UNITS LAB L501.0100 74-106 mg/dL High GLU 111 Result Comment: Fasting Glucose result from 100 to 125 mg/dL suggests IMPAIRED HOMEOSTASIS per A.D.A. criteria. Please note revised GLUCOSE reference range effective 2017. LAB L501.1000 7-18 mg/dL High BUN 22 LAB L501.1100 0.70-1.30 mg/dL Normal CREAT,SERUM 0.75 Result Comment: The validity of the calculated GFR AND GFRAA in patients over 70 years has not been determined. Clinical correlation is essential. LAB L501.1110 >60 mL/min Normal EST GFR 121 Result Comment: Non- GFR Calc LAB L501.1115 >60 mL/min Normal EST GFR - AA 147 Result Comment: GFR Calc LAB L501.1255 ml/min Normal Estimated CRCL 157.53 LAB L501.1300 10-20 RATIO High BUN/CRE 29.4 LAB L501.2200 8.5-10 mg/dL .1 CA Normal 8.7 LAB L501.5300 136-14 mmol/L 5 NA Normal 145 LAB L501.5600 3.5-5. mmol/L 1 K Normal 3.8 LAB L501.5900 98-107 mmol/L CL Normal 107 LAB L501.6100 21.0-3 mmol/L 2.0 CO2 Normal 29.0 LAB L501.6200 5-15 GAP Normal 9 Performed By: #### L500.2500, L501.4010 #### [facility] [address] [place], [address] TROPONIN-I Collected: 04/24/2018 Status: F Source: [place] 4:48 PM [facility] REPOSITORY TYPE CODE TESTS RESULT OUT OF RANGE REFERENCE UNITS LAB L501.4010 <0.045 ng/mL Normal < 0.015 TROPONIN-I Result Comment: TROPONIN-I EXPECTED VALUES <0.045 Negative 0.045 - 0.590 Consistent with Cardiac Damage > OR = 0.600 Critical Value Not every elevated troponin is indicative of OR. These values should be used with clinical judgement in examining the patient's clinical picture for diagnosis. To establish a diagnosis of OR versus myocardial injury, there must be a demonstrated rise and/or fall in the troponin values, in addition to ischemic symptoms, EKG changes, new regional wall motion abnormality, and/or angiographical evidence. PLEASE NOTE: REFERENCE RANGES EDITED 17 Performed By: #### L500.2500, L501.4010 #### [facility] [address] [place], [address] BNP,B-TYPE NATRIURETIC Collected: 04/24/2018 Status: F Source: [place] 4:48 PM [facility] REPOSITORY TYPE CODE TESTS RESULT OUT OF RANGE REFERENCE UNITS LAB L503.6620 0-100 pg/mL Normal B-TYPE 45.5 GARRETT PEP Performed By: #### L503.6620 #### [facility] [address] [place], [address] MRI CARDIAC WITH Observed: 04/04/2018 Status: F Source: [facility] CONTRAST FOR MORPH 3:40 PM [facility] REPOSITORY [facility] CMR Report Name: KATRINA MELVIN : 1975 Scan Date: 2018-04-04 13:38:14 Signed by Tanya Farmer ([id number]) 15:39:56. SUMMARY 42 yo male with LV dysfunction; CMR to assess car diomyopathy. CARDIAC MRI 1. Midwall late gadolinium enhancement involving the basal lateral wall and septum indicates fibrosis of nonischemic cardiomyopathy. No infarct scar is seen, and no LGE/T1 findings of infiltrative disease. 2. There is no significant myocardial edema/inflammation by T2 mapping. 3. Dilated left ventricle (EDV 136 cc/m2) with moderate-severe global systolic dysfunction; LVEF = 32%. 4. Normal right ventricular cavity size with reduced systolic function (calculated RVEF 40%). 5. Severe left atrial enlargement. 6. Moderate MR and TR. Peak trans aortic velocity is 1.3 m/sec based on phase contrast imaging. CRITICAL RESULT: No STUDY QUALITY: Excellent Nonischemic cardiomyopathy with midwall fibrosis and moderate LV systolic dysfunction. SCAN INFO GENERAL SETUP DATE OF EVENT: 2018-04-04 00:00:00 TYPE: Clinical INPATIENT: No REFERRING PHYSICIAN: 1) MURRAY HAWKINS ATTENDING PHYSICIAN: Tanya Farmer MD FELLOW: Hanh Norman TECHNOLOGIST: Kaylynn Kinsey NURSE: Tiana Hurd RN CONTRAST AGENT TYPE: Gadavist VOLUME ADMINISTERED: 19 ml DOSAGE FOR 0.5M: 0.07 mmol/kg CREATININE DATE: 2018-04-04 00:00:00 SERUM CREATININE: 1.1 sCr GFR: 78.02 ml/min/1.73m^2 LAB RESULT HEMATOCRIT LEVEL: 40.4 % HEMATOCRIT DATE: 2018-04-04 00:00:00 VITALS HEIGHT: 76 in HEIGHT: 193.04 cm WEIGHT: 280.01 lbs WEIGHT: 127.01 kgs BSA: 2.56 m^2 VITALS SYSTOLIC BP: 145 mmHg DIASTOLIC BP: 90 mmHg BASELINE HR: 80 BPM INDICATION(S) FOR SCAN REASON(S) FOR SCAN: Cardiomyopathy BILLING APPROPRIATENESS OF ORDER: Appropriate BILLING Patient Account [id number] CPT Codes 32989, [ , ]14716 ICD10 Codes I42.8 CORE EXAM MEASUREMENTS VOLUMETRIC ANALYSIS . . LV Reference RV Reference +------+ +--------+ +--------+ + EDV ml 346.85 (117-200) 230.36 (116- 216) ml/m^2 135.5 (64-99) 90 (62-108) ESV ml 234.61 (31-76) 137.7 (29-89) ml/m^2 91.6 (17-38) 53.8 (16-45) CO L/min 8.53 7.04 L/min/m^2 3.3 2.8 MASS SV ml 112.24 (77-133) 92.66 (73-141) ml/m^2 43.8 (42-66) 36.2 (39-71) EF % 32.36 (58-75) 40.22 (52-77) '------+ +--------+ +--------+ ' CARDIAC OUTPUT HR: 76 BPM LV/RV DIMENSIONS LV BHARATH: 6.9 cm LV ESD: 6.3 cm RV BHARATH: 4.7 cm RV ESD: 3.3 cm LA (SYSTOLE) / RA DIMENSIONS LA AREA - 2 CHAMBER: 33 cm^2 LA LENGTH - 2 CHAMBER: 5.5 cm LA AREA - 4 CHAMBER: 38 cm^2 LA LENGTH - 4 CHAMBER: 7 cm LA VOLUME: 193.8 ml RA AREA - 4 CHAMBER: 27 cm^2 WALL THICKNESS WALL THICKNESS - ANTEROSEPTAL: 1 cm WALL THICKNESS - INFEROLATERAL: 0.7 cm EXTRACELLULAR VOLUME MEASUREMENT PRE-CONTRAST T1 MYOCARDIUM: 1067 msec PRE-CONTRAST T1 LV CAVITY: 1634 msec POST-CONTRAST T1 MYOCARDIUM: 480 msec POST-CONTRAST T1 LV CAVITY: 326 msec ECV: 27.82 % VASCULAR *CRE/GFR POC DEVICE Collected: 04/04/2018 Status: F Source: [facility] 1:24 PM [facility] REPOSITORY TYPE CODE TESTS RESULT OUT OF REFERENCE UNITS RANGE LAB CREPC 0.70-1.30 mg/dL Creatinine (poc 1.10 device) LAB GFRPC >60 mL/min/1.7 3 sq m est GFR, (poc device) >60 LAB PCSTYP *POC SAMPLE TYPE Venous HEMATOCRIT Collected: 04/04/2018 Status: F Source: [facility] 1:10 PM [facility] REPOSITORY TYPE CODE TESTS RESULT OUT OF REFERENCE UNITS RANGE LAB HCT 40.1-51.0 % Hematocrit 40.4 Performed By: #### HCT #### [facility] [address] [place] [address] [facility] [address] [place], [place] [address] HEMOGLOBIN A1C Collected: 03/24/2018 Status: F Source: [place] 7:35 AM [facility] REPOSITORY TYPE CODE TESTS RESULT OUT OF RANGE REFERENCE UNITS LAB L501.9985 4.2-6.3 % Normal HGB A1C 5.5 Performed By: #### L501.9985 #### [facility] [address] [place], [place], [address] COMPREHENSIVE METABOLIC Collected: 03/24/2018 Status: F Source: [facility] 7:35 AM [facility] REPOSITORY Order Comment: PLEASE ADD T3F TO BLOOD FROM 03-24-G2 5 B TYPE CODE TESTS RESULT OUT OF RANGE REFERENCE UNITS LAB L501.0100 74-106 mg/dL High GLU 110 Result Comment: Fasting Glucose result from 100 to 125 mg/dL suggests IMPAIRED HOMEOSTASIS per A.D.A. criteria. Please note revised GLUCOSE reference range effective 2017. LAB L501.1000 7-18 mg/dL High BUN 27 LAB L501.1100 0.70-1.30 mg/dL Normal CREAT,SERUM 0.71 Result Comment: The validity of the calculated GFR AND GFRAA in patients over 70 years has not been determined. Clinical correlation is essential. LAB L501.1110 >60 mL/min Normal EST GFR 129 Result Comment: Non- GFR Calc LAB L501.1115 >60 mL/min Normal EST GFR - AA 156 Result Comment: GFR Calc LAB L501.1300 10-20 RATIO High BUN/CRE 38.0 LAB L501.1500 6.4-8.2 g/dL T Normal PROT 7.6 LAB L501.1800 3.2-5.0 g/dL Normal ALB 3.8 LAB L501.1950 2.2-4.2 g/dL Normal GLOB 3.8 LAB L501.2000 0.9-2.4 RATIO Normal A/G 1.0 LAB L501.2200 8.5-10.1 mg/dL CA Normal 8.8 LAB L501.4100 15-37 U/L Normal AST 23 LAB L501.4305 45-117 U/L Normal ALK P 76 LAB L501.4405 16-61 U/L Normal ALT 28 LAB L501.4600 0.20-1.00 mg/dL T Normal BILI 0.70 LAB L501.5300 136-145 mmol/L NA Normal 139 LAB L501.5600 3.5-5.1 mmol/L K Normal 3.7 LAB L501.5900 98-107 mmol/L CL Normal 105 LAB L501.6100 21.0-32.0 mmol/L Normal CO2 24.0 LAB L501.6200 5-15 Normal GAP 10 Performed By: #### L500.4050, L500.4100, L501.9520, L506.0400, L501.85208 #### [facility] [address] [place], [address] LIPID PROFILE Collected: 03/24/2018 Status: F Source: [place] 7:35 AM [facility] REPOSITORY Order Comment: PLEASE ADD T3F TO BLOOD FROM 03-24-G2 5 B TYPE CODE TESTS RESULT OUT OF RANGE REFERENCE UNITS LAB L501.4900 200 mg/dL Normal CHOL 146 Result Comment: <200 mg/dL Desirable 200-240 mg/dL Borderline >240 mg/dL High Risk LAB L501.5000 mg/dL Normal TRIG 100 Result Comment: The drugs N-Acetylcysteine and Metamizole may falsely depress this assay. Serum Triglycerides Reference Interval Normal <150 mg/dL Borderline high 150 - 199 mg/dL High 200 - 499 mg/dL Very High > or = 500 mg/dL LAB L501.6400 mg/dL Normal HDL 52 Result Comment: The drugs N-Acetylcysteine and Metamizole may falsely depress this assay. Reference Range HDL <40 mg/dL Low HDL Cholesterol HDL >or= 60 mg/dL High HDL Cholesterol LAB L501.6500 0-130 mg/dL Normal LDL 74 LAB L501.6600 5-40 mg/dL Normal VLDL 20 Performed By: #### L500.4050, L500.4100, L501.9520, L506.0400, L501.24695 #### [facility] [address] [place], [address] THYROID STIM HORMONE Collected: 03/24/2018 Status: F Source: [place] (TSH) 7:35 AM [facility] REPOSITORY Order Comment: PLEASE ADD T3F TO BLOOD FROM 03-24-18 [facility] 5 B TYPE CODE TESTS RESULT OUT OF RANGE REFERENCE UNITS LAB L501.9520 0.358-3.74 uIU/mL Normal TSH 0.64 Performed By: #### L500.4050, L500.4100, L501.9520, L506.0400, L501.91614 #### [facility] [address] [place], [address] T4 FREE DIRECT Collected: 03/24/2018 Status: F Source: [place] 7:35 AM [facility] REPOSITORY Order Comment: PLEASE ADD T3F TO BLOOD FROM 03-24-18 [facility] 5 B TYPE CODE TESTS RESULT OUT OF RANGE REFERENCE UNITS LAB L506.0400 0.76-1.46 ng/dL Normal T4 FREE 1.09 DIRECT Performed By: #### L500.4050, L500.4100, L501.9520, L506.0400, L501.15913 #### [facility] [address] [place], [address] FREE T3 Collected: 03/24/2018 Status: F Source: [place] 7:35 AM [facility] REPOSITORY Order Comment: PLEASE ADD T3F TO BLOOD FROM 03-24-18 [facility] 5 B TYPE CODE TESTS RESULT OUT OF RANGE REFERENCE UNITS LAB L501.02325 2.18-3.98 pg/mL Normal FREE T3 3.2 Performed By: #### L500.4050, L500.4100, L501.9520, L506.0400, L501.06812 #### [facility] [address] [place], [address] T3 TOTAL - TRIIODOTHYRONINE Collected: 03/24/2018 Status: F Source: [place] 7[facility] AM [facility] TYPE CODE TESTS RESULT OUT OF RANGE REFERENCE UNITS LAB L501.9186 0.6-1.81 ng/mL Normal T3 Total 1.02 Performed By: #### L501.9186, L506.1000 #### [facility] [address] [place], [address] VITAMIN D,25 HYDROXY Collected: 03/24/2018 Status: F Source: [place] 7:35 AM [facility] REPOSITORY TYPE CODE TESTS RESULT OUT OF RANGE REFERENCE UNITS LAB L506.1000 29.95-100.01 ng/mL Normal Vitamin D 33.1 25-OH Result Comment: Vitamin D 25(OH) Status Range Deficiency <20 ng/mL (50nmol/L) Insuffciency 20 - 30 ng/mL (50 - 75 nmol/L) Sufficiency 30 - 100 ng/mL (75 - 250 nmol/L) Toxicity >100 ng/mL (>250 nmol/L) Performed By: #### L501.9186, L506.1000 #### [facility] [address] [place], [address] MICROALB:CREAT Collected: 03/24/2018 Status: F Source: [place] RATIO,RANDOM UR 7:35 AM [facility] REPOSITORY TYPE CODE TESTS RESULT OUT OF RANGE REFERENCE UNITS LAB L501.1200 NO RANGE EST. mg/dL Normal UR CREAT 288.00 LAB L502.0500 NO RANGE EST. mg/L Normal 38.5 MICROALBUMIN ,UR LAB L502.0600 <30 mg/g CRE mg/g CRE Normal 13.4 MALB:CREAT Performed By: #### L502.0250 #### [facility] [address] [place], [address] URGENT CARE VISIT Observed: 03/21/2018 Status: F Source: [place] RE[place] 5:58 PM [facility] REPOSITORY [address] [place] [address] OFFICE VISIT Date of Service: 03/21/18 MR#: [id number] Acct: [id number] Name: KATRINA MELVIN Rep #: [id number] : 1975 Provider: Chandra CUMMINGS Age/Sex: 42/M Location: [facility] Status: Signed Intake Vital Signs03/21/18 Height 6 ft 4 in Intake Visit Reasons: Cough Chief Complaint: Cough Allergies codeine Allergy (Verified 03/21/18 17:51) Other perflutren [From DefinAxonify] Adverse Reaction (Verified 03/21/18 17:51) Pain in joints Medications Dulaglutide [Trulicity] 1.5 mg SQ Q7D 12/10/17 [History Confirmed 03/21/18] Enoxaparin [Lovenox] 135 mg SC Q12@0600,1800 12/10/17 [History Confirmed 03/21/18] Insulin Lispro [Humalog] 0 unit SQ BID 12/10/17 [History Confirmed 03/21/18] Methimazole [Tapazole] 7.5 mg PO DAILY 12/10/17 [History Confirmed 03/21/18] metformin 1,000 mg tablet 500 mg PO BIDCM tab 02/14/18 [History Confirmed 03/21/18] Aspirin 1 tab PO QODAY 03/04/18 [History Confirmed 03/21/18] carvedilol 3.125 mg tablet 3.125 mg PO BID #60 tab 03/04/18 [Rx Confirmed 03/21/18] lisinopril 10 mg tablet 10 mg PO DAILY #30 tab 03/04/18 [Rx Confirmed 03/21/18] azithromycin 250 mg tablet 250 mg PO QDAY #6 tab 03/21/18 [Rx Confirmed 03/21/18] [facility] Medical History Idiopathic cardiomyopathy (Chronic) 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) Diastolic dysfunction with heart failure (Acute) Thyroid disorder (Chronic) DVT of leg (deep venous thrombosis) (Chronic) Pulmonary embolism (Resolved) HTN (hypertension) (Chronic) Medial meniscus tear (Chronic) Type 2 diabetes mellitus (Chronic) Contusion of left knee, initial encounter (Resolved) Other tear of medial meniscus, current injury, left knee, subsequent encounter (Resolved) Other internal derangements of left knee (Inactive) Other tear of lateral meniscus, current injury, left knee, subsequent encounter (Inactive) Pain of left knee after injury (Inactive) Surgical History Partially torn MCL (Inactive) Torn PCL (Inactive) Torn meniscus (Inactive) torn cartilage behind knee (Inactive) Family History Father Hypertension Social History Smoking Status: Former smoker how long ago did patient quit smokin, 2pks/day second hand exposure: Yes alcohol intake: current alcohol intake frequency: a few times a month substance use type: does not use HPI HPI Chief Complaint: Cough Details: KATRINA MELVIN, is a 42 M who presents to the office today for initial evaluation cough. Patient is approximate 24-hour history of progressively worsening cough, particularly over the last 2 hours. Patient and patient's father particular concern because of his extensive past medical history. He notes no complaints of fever, chills, sweats, rash, chest pain/shortness of breath, though he notes his cough is productive though does not describe the character of the sputum. He is a non-smoker. He notes no other members in his household with similar symptoms. He notes no other associated symptoms and no other alleviating or aggravating factors. ROS Const Constitutional: No other (ROS negative x10 other than that noted above) Exam Const General: cooperative, healthy appearing, no acute distress, comfortable Orientation: alert, awake, oriented x3 HENMT Head: normal to inspection Ears: hearing grossly normal bilaterally, external ears normal, TM's normal bilaterally, EAC's normal Nose: external nose normal, nares normal, septum normal, no nasal discharge Face and sinus: normal facial exam, sinuses nontender, face symmetric Mouth: tongue normal, lip normal, oropharynx normal, oral mucosae normal Teeth and gingiva: dentition normal, gingiva normal Throat: uvula midline, tonsils normal, posterior oropharynx normal, no postnasal drainage Eyes General: appearance normal, both eyes and all related structures Neck Neck: normal visual inspection, full ROM, no lymphadenopathy, no meningeal signs, supple Neck mass: No Thyroid: thyroid normal Lymphatic: no lymphadenopathy noted Chest Chest palpation AND inspection: normal inspection of the chest Resp Effort AND Inspection: normal respiratory effort, able to speak in complete sentences, symmetric chest movement, cough Quality of cough: wet (Nonproductive during today's exam) Auscultation: Bilateral: Clear to Auscultation Cardio Palpation: normal PMI Rate: regular rate Rhythm: regular rhythm Heart Sounds: S1 normal, S2 normal, no gallops, no murmurs, no rubs Pulses: radial pulses present GI Inspection: normal to inspection Palpation: soft, no hepatosplenomegaly Skin General: no rashes or lesions noted Neuro General: alert, awake, oriented x3, gait normal Cognition: normal cognition Speech: speech normal Gait: normal gait Motor: muscle tone normal throughout Sensory Exam: no sensory deficits noted Psych Appearance: grossly normal Mental Status: mental status grossly normal Mood: congruent mood Affect: normal affect Speech and Movement: speech and movement normal Attitude: cooperative Thought Process: normal Thought Content: normal Judgment: judgment good Assessment AND Plan Problems 1. Bronchitis J40 Plan Azithromycin as prescribed today. Clear fluid, rest, Tylenol as needed for symptomatic relief. Follow-up with PCP in 3-5 days should symptoms not improved, sooner should symptoms worsen or any other concerns develop. Patient states acknowledging understanding all the above. This note was generated with [employer] software. It may contain incorrect words, spelling, and punctuation that were not noted in checking the note before signing. Medications New: azithromycin 2 tablets today, then 1 tablet daily on days 2 250 mg PO QDAY 6 tabs 0RF through 5 Coding Level of Care Code Off vis,est,level 3 Diagnoses Bronchitis J40 03/21/18 9032 <Electronically signed by Chandra CUMMINGS> Date Chandra CUMMINGS Cosigner Signature: Date (if applicable) CC: CBC W/DIFF, AUTOMATED Collected: 03/03/2018 Status: F Source: [place] 12:40 PM [facility] REPOSITORY TYPE CODE TESTS RESULT OUT OF RANGE REFERENCE UNITS LAB L100.1000 4.4-11.0 K/mm3 Normal WBC 6.1 LAB L100.1200 4.6-6.2 M/mm3 Normal RBC 4.72 LAB L100.1300 13.0-16.5 g/dl Normal HGB 13.7 LAB L100.1400 40-54 % Normal HCT 42.3 LAB L100.1500 80-94 fL Normal MCV 89.6 LAB L100.1600 27.0-32.0 pg Normal MCH 29.0 LAB L100.1700 32-36 g/gl Normal MCHC 32.4 LAB L100.1810 11.6-14.6 % Normal RDW CV 13.7 LAB L100.1820 35.1-43.9 fl High RDW SD 45.3 LAB L100.1900 150-450 K/mm3 Normal PLT 236 LAB L100.2000 6.2-12.0 fl Normal MPV 9.7 LAB L100.2100 47-70 % Normal NEUT% 56.3 LAB L100.2200 19-41 % Normal LY% 35.1 LAB L100.2300 0-10 % Normal MONO% 7.2 LAB L100.2400 0-5 % Normal EO% 1.0 LAB L100.2500 0-1 % Normal BASO% 0.2 LAB L100.2550 0.0-0.9 % Normal IM GRAN % 0.200 Result Comment: IG% - Immature Granulocytes (promyelocytes, myelocytes and metamyelocytes) > 1% indicates that a LEFT SHIFT is Present. LAB L100.2620 2.0-7.7 X10 3/uL Normal Absolute Neut 3.4 LAB L100.2720 0.83-4.51 X10 3/ul Normal Absolute Lymph 2.14 Performed By: #### L100.0100, L300.3900, L300.4310, L500.2500 #### [facility] [address] [place], [place], [id number] PROTHROMBIN TIME W/INR Collected: 03/03/2018 Status: F Source: [place] 12:40 PM [facility] REPOSITORY TYPE CODE TESTS RESULT OUT OF RANGE REFERENCE UNITS LAB L300.4150 11.7-14.9 SECONDS Normal PROTIME 13.1 LAB L300.4200 Normal INR 1.0 Performed By: #### L100.0100, L300.3900, L300.4310, L500.2500 #### [facility] [address] [place], [address] PARTIAL THROMBOPLAST Collected: 03/03/2018 Status: F Source: [place] TIME 12:40 PM [facility] REPOSITORY TYPE CODE TESTS RESULT OUT OF REFERENCE UNITS RANGE LAB L300.4310 24.1-36.2 Seconds High PTT 36.5 Performed By: #### L100.0100, L300.3900, L300.4310, L500.2500 #### [facility] [address] [place], [address] BASIC METABOLIC Collected: 03/03/2018 Status: F Source: [place] PROFILE (BMP) 12:40 PM [facility] REPOSITORY TYPE CODE TESTS RESULT OUT OF RANGE REFERENCE UNITS LAB L501.0100 74-106 mg/dL Normal GLU 83 Result Comment: Please note revised GLUCOSE reference range effective 2017. LAB L501.1000 7-18 mg/dL Normal BUN 15 LAB L501.1100 0.70-1.30 mg/dL Low CREAT,SERUM 0.61 Result Comment: The validity of the calculated GFR AND GFRAA in patients over 70 years has not been determined. Clinical correlation is essential. LAB L501.1110 >60 mL/min Normal EST GFR 154 Result Comment: Non- GFR Calc LAB L501.1115 >60 mL/min Normal EST GFR - AA 186 Result Comment: GFR Calc LAB L501.1300 10-20 RATIO High BUN/CRE 24.5 LAB L501.2200 8.5-10.1 mg/dL CA Normal 9.0 LAB L501.5300 136-145 mmol/L NA Normal 141 LAB L501.5600 3.5-5.1 mmol/L K Normal 4.1 LAB L501.5900 98-107 mmol/L CL Normal 106 LAB L501.6100 21.0-32.0 mmol/L Normal CO2 27.0 LAB L501.6200 5-15 Normal GAP 8 Performed By: #### L100.0100, L300.3900, L300.4310, L500.2500 #### [facility] [address] [place], [address] ECHOCARDIOGRAM, LIMITED Observed: 03/02/2018 Status: F Source: [place] STUDY 1:17 PM [facility] REPOSITORY [facility] Cardiovascular Services [address] [place] [address] Echo, Limited Study 03/02/18 1105 MR#: [id number] Acct: [id number] Name: KATRINA MELVIN Rep #: [id number] : 1975 42 From: Murray Hawkins MD Attending Dr: Shruthi SARAVIA,Murray Status: REG CLI Ordering Dr: Murray Hawkins MD Date: 03/02/18 Location: [facility] Sex: M C Admitted: Reason For Study: CHF Procedure This was a 2D Doppler, Color Flow transthoracic echocardiogram. The study was technically difficult. Exam performed in department. Left Ventricle Mildly dilated left ventricle. The estimated ejection fraction is 40 %. Diastolic function is indeterminate. Compared to previous study, the left ventricular systolic function has worsened.. There is mild to moderate global hypokinesis of the left ventricle. Right Ventricle Normal RV size. Normal systolic function. Atria The left atrium is mildly enlarged. Normal right atrium. Mitral Valve Normal mitral valve. Tricuspid Valve Normal tricuspid valve. Aortic Valve Normal aortic valve. Trisinus/trileaflet aortic valve. Pulmonic Valve Normal pulmonic valve. Great Vessels Normal aortic root. The pulmonary artery is normal size. Normal inferior vena cava. Pericardium/Pleural No pericardial effusion. MMode/2D Measurements AND Calculations LVIDd: 6.4 cm IVSd: 1.2 cm LA dimension: 4.9 cm LVIDs: 5.2 cm LVPWd: 1.2 cm FS: 17.5 % LAV(MOD-bp): 97.8 ml LA A4 area: 24.6 cm2 LAV(MOD-bp) Indexed: 38.3 ml/m2 LAV(MOD-sp2): 107.1 ml LAV(MOD-sp4): 85.9 ml Interpretation Summary Mildly dilated left ventricle. The estimated ejection fraction is 40 %. Diastolic function is indeterminate. There is mild to moderate global hypokinesis of the left ventricle. Compared to previous study, the left ventricular systolic function has worsened.. Ordering Physician: Murray Hawkins Referring Physician: Jeniffer Houston Performed By: Naomy Lau, PAO, RVT 03/02/18 1317 Date Murray Hawkins MD CC: Murray Hawkins MD; Jeniffer Houston DO Date Dictated: 03/02/18 1105 Date Transcribed: 03/02/18 1317 Vest Baster: Signed STRESS REPORT Observed: 02/16/2018 Status: F Source: [place] 9:30 AM [facility] REPOSITORY [facility] Cardiovascular Services [address] [place] [address] MR#: [id number] Acct: [id number] Name: KATRINA MELVIN Rep #: [id number] : 1975 42 From: Murray Hawkins MD Primary Care: Jeniffer Houston DO Status: REG CLI Ordering Dr: Arianna: Esvin Rodrigues Stress Test Report Pharmacologic myocardial perfusion stress test. 42-year-old man with a history of recurrent deep vein thrombosis. Stress protocol: Resting EKG demonstrates sinus rhythm with rate of 90 bpm resting blood pressure is 128/80 mmHg. 0.4 mg regadenoson was infused per usual protocol followed by rapid intravenous saline flush injection continuous EKG monitoring was performed. The patient maintained sinus rhythm throughout the recording. The maximum heart rate attained was 101 bpm which was 56% of maximum predicted heart rate the maximum workload was 1 metabolic equivalent. Patient maintained sinus rhythm throughout the recording. The resting blood pressure 728/80 with a final blood pressure of the same. Myocardial perfusion protocol. 14.7 mCi of technetium 99m sestamibi was injected at rest. 0.4 mg of regadenoson was infused per usual protocol peak infusion 44.4 mCi of technetium 99m sestamibi was injected stress images were obtained stress and rest images were reconstructed and compared in the short axis vertical long and horizontal long axis. Gated images were also obtained pre- Perfusion SPECT analysis: Review of the stress images demonstrate an upper normal cardiac silhouette size. There appears to be uniform uptake of tracer noted in all areas of the myocardium except for small portion of the apex the inferior wall has significant GI bowel attenuation noted. This is present on the stress and rest images to a similar extent. No obvious areas of reversibility are noted. Gated SPECT analysis: The gated ejection fraction is globally reduced at 27%. Conclusion: Pharmacologic myocardial perfusion stress test with no evidence of ischemia. Global reduction in left ventricular ejection fraction. 02/16/18929 <Electronically signed by Murray Hawkins MD> Date Murray Hawkins MD CC: Murray Hawkins MD; Jeniffer Houston DO Date Dictated: 02/16/18926 Date Transcribed: 02/16/18926 Vest Baster: CO Signed BNP,B-TYPE NATRIURETIC Collected: 02/16/2018 Status: F Source: [place] 9:03 AM [facility] REPOSITORY TYPE CODE TESTS RESULT OUT OF RANGE REFERENCE UNITS LAB L503.6620 0-100 pg/mL Normal B-TYPE 95.0 GARRETT PEP Performed By: #### L503.6620 #### [facility] [address] [place], [address] CARDIOLOGY VISIT Observed: 02/14/2018 Status: F Source: [place] REPORT 5:06 PM [facility] REPOSITORY [facility] [address] [place] [address] OFFICE VISIT Date of Service: 02/14/18 MR#: [id number] Acct: [id number] Name: KATRINA MELVIN Rep #: [id number] : 1975 Provider: Murray Hawkins MD Age/Sex: 42/M Location: [facility] Status: Signed [facility] Chief Complaint: Initial visit Details: KATRINA MELVIN, is a 42 M who presents to the office today for an initial cardiac visit. He says that he is here to evaluate the status of his heart. He is a gentleman with a history of previous pulmonary embolism and DVT in July 2016. At that time he was noted to have an ejection fraction of 55% and right ventricular systolic pressure 33 mmHg. He says that he had a repeat echocardiogram done in October 2016 with demonstrated ejection fraction of 55% and right ventricular systolic pressure of 29 mmHg. He has had occasional sharp chest pain stabbing and some shortness of breath and fatigue. As part of the workup for the above he had a repeat echocardiogram done in December 2017 with demonstrated ejection fraction of 50% with pulmonary artery systolic pressure of 38 mmHg. He was noted to have stage II diastolic dysfunction. Due to the above it was felt that he may have a cardiac condition and he was referred here for further cardiac evaluation. He denies any neck arm or jaw discomfort suggest angina no chest heaviness to suggest angina. He has been compliant with all his anticoagulation and says that he has been worked up exhaustively and cannot go off his Lovenox at this particular time. His physical exam demonstrates clear lung fischer regular rate and rhythm and no pedal edema. Intake Vital Signs02/14/18 Height 6 ft 4 in 02/14/18 Weight: 303 lb 02/14/18 Body Mass Index (BMI) 36.8 02/14/18 Blood Pressure 130/78 02/14/18 Blood Pressure Location Lt brachial Intake Visit Reasons: Ref'd by Dr Allen for diastolic CHF Ui Ux Developer Required: No Accompanied by: Is patient in pain?: No Allergies codeine Allergy (Verified 02/14/18 16:03) Other perflutren [From DefinAxonify] Adverse Reaction (Verified 02/14/18 16:03) Pain in joints Medications Dulaglutide [Trulicity] 1.5 mg SQ Q7D 12/10/17 [History Confirmed 02/14/18] Enoxaparin [Lovenox] 135 mg SC Q12@0600,1800 12/10/17 [History Confirmed 02/14/18] Insulin Lispro [Humalog] 0 unit SQ BID 12/10/17 [History Confirmed 02/14/18] Lisinopril [Zestril] 20 mg PO DAILY 12/10/17 [History Confirmed 02/14/18] Methimazole [Tapazole] 7.5 mg PO DAILY 12/10/17 [History Confirmed 02/14/18] metformin 1,000 mg tablet 500 mg PO BIDCM tab 02/14/18 [History Confirmed 02/14/18] [facility] Medical History Thyroid disorder (Chronic) DVT of leg (deep venous thrombosis) (Chronic) Pulmonary embolism (Resolved) HTN (hypertension) (Chronic) Medial meniscus tear (Chronic) Type 2 diabetes mellitus (Chronic) Contusion of left knee, initial encounter (Resolved) Other tear of medial meniscus, current injury, left knee, subsequent encounter (Resolved) Other internal derangements of left knee (Inactive) Other tear of lateral meniscus, current injury, left knee, subsequent encounter (Inactive) Pain of left knee after injury (Inactive) Surgical History Partially torn MCL (Inactive) Torn PCL (Inactive) Torn meniscus (Inactive) torn cartilage behind knee (Inactive) Family History Father Hypertension Social History Smoking Status: Former smoker how long ago did patient quit smokin, 2pks/day second hand exposure: Yes alcohol intake: current alcohol intake frequency: a few times a month substance use type: does not use ROS Const Const: Positive for fatigue, weakness and headache(s); negative for night sweats, excessive sweating, frequent falls or daytime sleepiness Eyes Eyes: Negative for loss of peripheral vision, transient loss of vision, blind spots, double vision or blurry vision ENT ENT: Positive for headache(s); negative for dizziness, balance problems, Nosebleed/epistaxis, tongue swelling or lip swelling Cardio Chest Pain: No Palpitations: No Edema: Bilateral Muscle aches with walking: None Resp Respiratory: Negative for SOB at rest, SOB orthopnea\SOB lying down, Cough, paroxysmal nocturnal dyspnea or SOB with activity GI GI: Negative nausea, vomiting, heartburn, black,tarry stools or bright, red blood in stools : Negative for hematuria Musc Musc: Negative for balance problems, muscle aches/ myalgia, muscle weakness or joint pain Skin Skin: Negative non-healing lesions, unusual bruising or rash Neuro Neuro: Positive for weakness and headache(s); negative for frequent falls, double vision, dizziness, lightheadedness, orthostatic symptoms, blurry vision or lack of coordination Anuj Hematologic/Lymphatic: Negative for easy bruising or easy bleeding Endo Endo: Positive for fatigue; negative for excessive sweating, cold intolerance, heat intolerance, increased thirst/drinking or hair loss Psych Psych: Negative for anxiety or depression Allergy Allergy/Immunology: Negative for throat swelling, Negative for tongue swelling, Negative for hives, Negative for rash, Negative for lip swelling Assessment AND Plan 1. Chronic diastolic heart failure I50.32 Plan He appears to have chronic diastolic dysfunction. My recommendation will be for us to obtain a natruretic peptide level to see whether he is retaining any fluid in his lungs. I have suggested that if this is the case we may need to add a diuretic. In addition I would like to exclude coronary artery disease due to his history of hypertension, and diabetes mellitus by obtaining a pharmacologic myocardial perfusion stress test. I did discuss with him that his pulmonary artery systolic pressures are not significantly different considering that the first 2 tests were an estimation of his right ventricular systolic pressure in the last test was his pulmonary artery systolic pressure. I have told him that depending on the results of the tests further recommendations will be made. In addition I have asked him to seek another orthopedic opinion in a tertiary care facility regarding his knee. Thank you for allowing me to participate in the care of your patient. 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 [place] [address] OFFICE VISIT Date of Service: 01/18/18 MR#: [id number] Acct: [id number] Name: KATRINA MELVIN Rep #: [id number] : 1975 Provider: Osmel Allen MD Age/Sex: 42/M Location: [facility] Status: Signed Assessment AND Plan Problems 1. 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 Chronic diastolic heart failure I50.32 Plan Patient with massive PE in the past with progressive shortness of breath. Lung function studies show significant decline in lung function by 16% across lung volumes, flow and DLCO. Patient has reported significant weight variation and lower extremity edema. Echocardiogram has shown the development of stage II diastolic dysfunction. Patient has not had significant hypertension or my office visits. Some concern that the pulmonary embolism has led to significant cardiac strain with remodeling. Patient's last d-dimer was normal indicating low likelihood of recurrent clot. Patient will be referred to cardiology for evaluation of diastolic congestive heart failure as an etiology. Will repeat pulmonary function testing prior to next visit to see if there is improvement after initiation of a low-salt diet. Low-salt diet was discussed in detail. Repeat PFT prior to next visit. Referral to cardiology for diastolic congestive heart failure. Orders Orders: Referrals: Plan Detail Follow Up 3 Months (BWA) HPI 6 M FU: Chief Complaint: Shortness of breath on exertion Details: Patient is a 42-year-old male, currently in the care of Dr. Houston, who presents for evaluation secondary to shortness of breath on exertion. Since last visit, patient denies any hospitalizations or prednisone burst. Patient does state that he was seen in the emergency room secondary to significant shortness of breath. Patient did have multiple tests completed and states that he was feeling worse during testing. Patient has noted intermittent palpitations and feeling like I am breathing through dense fog. Patient has noticed intermittent lower extremity swelling. Patient's reports that he had a 30 pound weight gain over the course of the weekend. Patient states that this slowly improved over the course of 2-3 days along with the lower extremity swelling. Patient has had some intermittent chest heaviness, but states that this resolved spontaneously. Patient denies any cough, fever, chills, nausea or vomiting. Patient has been compliant with anticoagulation therapy and denies any melena, hematochezia, hemoptysis or epistaxis. Patient does report dietary indiscretions and tends to drink a lot of diet Pepsi during the day. Patient also is reported by his to have a lot of salt in his diet. Patient has never been seen by emergency dispatch operator previously. Personally reviewed with the patient Echo (01/03/2018): EF 50% with stage II diastolic dysfunction. Pulmonary artery systolic pressure estimated at 36 mmHg. No significant valvular disease. Complete PFT (01/03/2019): Moderate restrictive ventilatory defect with a mild reduction diffusing capacity with significant worsening compared to previous (FVC 67%, FEV1 66%, TLC 65%, DLCO 74%) Intake Vital Signs01/18/18 Height 6 ft 4 in 01/18/18 Weight: 135.624 kg Intake Visit Reasons: 6 M FU Accompanied by: Allergies codeine Allergy (Verified 01/18/18 06:19) Other perflutren [From Skysheet] Adverse Reaction (Verified 01/18/18 06:19) Pain in joints Medications Dulaglutide [Trulicity] 1.5 mg SQ Q7D 12/10/17 [History Confirmed 01/18/18] Enoxaparin [Lovenox] 135 mg SC Q12@0600,1800 12/10/17 [History Confirmed 01/18/18] Insulin Lispro [Humalog] 0 unit SQ BID 12/10/17 [History Confirmed 01/18/18] Lisinopril [Zestril] 20 mg PO DAILY 12/10/17 [History Confirmed 01/18/18] Metformin HCl [Glucophage] 1,000 mg PO BIDCM 12/10/17 [History Confirmed 01/18/18] Methimazole [Tapazole] 7.5 mg PO DAILY 12/10/17 [History Confirmed 01/18/18] [facility] Medical History Thyroid disorder (Chronic) DVT of leg (deep venous thrombosis) (Acute) acute hypoxia (Acute) SOB (shortness of breath) (Acute) Contusion of left knee, initial encounter (Acute) Other internal derangements of left knee (Acute) Pain of left knee after injury (Acute) Other tear of lateral meniscus, current injury, left knee, subsequent encounter (Acute) Other tear of medial meniscus, current injury, left knee, subsequent encounter (Acute) Pulmonary embolism (Resolved) Diabetes (Chronic) HTN (hypertension) (Chronic) Chest pain (Acute) Diabetes (Chronic) Surgical History torn cartilage behind knee (Resolved) Partially torn MCL (Resolved) Torn PCL (Resolved) Torn meniscus (Resolved) Family History Father Hypertension Social History Smoking Status: Former smoker how long ago did patient quit smokin, 2pks/day second hand exposure: Yes alcohol intake: current alcohol intake frequency: a few times a month substance use type: does not use Review of Systems Const CONSTITUTIONAL: Positive weight gain; negative anorexia, body ache, chills, daytime sleepiness, fever(s), night sweats, oral thrush, stops breathing during sleep, weight loss, sleeping in chair, fatigue, weight loss, frequent colds, seasonal allergies, other, headache(s) or orthopnea EETM Ear Nose Throat Mouth: Positive hearing normal; negative hard of hearing, hoarseness, dry mouth in morning, change in vision, itchy eyes, eye pain, swallowing Difficulty, ear pain, nose bleed, mouth pain, nasal congestion, nasal discharge, post nasal drip, sinus pain, sinus pressure, sore throat, other or headache(s) Cardio Cardiovascular: Positive chest pain (on/off), edema Location: lower extremity and palpitations; negative chest pain at rest, chest pain with activity, irregular heart rhythm, shortness of breath when lying down, murmur or other Resp Respiratory: Positive as per HPI; negative shortness of breath, pain with cough, wheezing, chest congestion, cough, chest tightness, pain on inspiration, inhalers, increase use of rescue inhalers, snoring, apnea or other (denies SOB, just said its hard to breathe) Gastro Gastrointestional: Negative bloody stools, change in appetite, difficulty swallowing, reflux, hematemesis, melena stool, loose stool, constipation or other Genitourinary: Negative blood in urine, nocturia, pain with urination or other Musc Musculoskeletal: Negative body pain, back pain, neck pain or other Skin/Breast Skin/Breast: Negative dry skin, itching, rash, unusual bruising, breast lump or other Neuro Neurological: Negative restless legs, confusion, weakness or other Psych Psychocological: Negative abnormal sleep pattern, anxiety, thoughts of hurting self/others, hopelessness or other Lymph Lymphatic: Negative easy bleeding, easy bruising, swollen lymph nodes or other Exam Const Constitutional: Positive conversant, cooperative, in no acute respiratory distress, healthy appearing, well developed, well nourished, good hygiene and obese; negative wearing supplemental oxygen or appears older than stated age Head Head: Positive normocephalic and atraumatic; negative cyanosis of lips/distal nose, frontal sinus tenderness or maxillary sinus tenderness Eyes Eye: Positive clear conjunctiva; negative nystagmus, scleral abnormality or cataract present Ears Ear: Positive hearing normal and external ears normal; negative hard of hearing Nose Nose: Positive external nose normal, septum normal and no nasal discharge; negative epistaxis or nasal polyp Mouth Mouth: Positive oral mucosae normal, no lesions, good dentition and crowded posterior oropharynx; negative post nasal drip, malodorous breath or oral thrush present Mallampati Score: III: Mallampati Score Neck Neck: Positive normal visual inspection, full ROM, trachea midline and thick neck; negative lymphadenopathy or JVD Chest Wall Chest: Positive normal inspection of the chest and symmetric chest movement; negative crepitus or tenderness Resp lung sounds: Positive clear to auscultation, good air exchange, normal expiratory time and normal respiratory effort; negative wheezes, rhonchi, rales, use of accessory muscles, dullness to percussion or wheeze present on forced exhalation Cardio Cardiac: Positive regular rate, regular rhythm, S1 normal and S2 normal; negative murmur, rub or gallop GI GI: Positive normal to inspection, normal bowel sounds and obese; negative distended, ascites or epigastric tenderness Genitourinary: Positive deferred Musc Musculoskeletal: Positive steady gait; negative using an assistive device for ambulation, kyphosis or scoliosis Skin Pulmonary Skin Exam: Positive intact; negative rash, lesion, ulcers, erythema or dermal atrophy Pulses Pulse: Yes radial pulses present Extremities Extremities: Yes capillary refill normal, No clubbing, No cyanosis, Yes edema (Trace) Location: lower extremity Neuro Neurologic: Yes conversant, Yes no focal neuro deficits, Yes normal concentration, Yes understands questions, Yes cooperative, Yes normal coordination Lymph Lymphatic: No lymphadenopathy Psych Appearance: Positive grossly normal Mental Status: Positive mental status grossly normal Mood: Positive congruent mood Affect: Positive normal affect Coding Level of Care Code Off vis,est,level 4 Diagnoses Saddle embolus of pulmonary artery without acute cor pulmonale, unspecified chronicity I26.92 Pulmonary embolism type: saddle Chronicity: unspecified Acute cor pulmonale presence: without acute cor pulmonale Chronic diastolic heart failure I50.32 Heart failure chronicity: chronic 01/18/18 0820 <Electronically signed by Osmel Allen MD> Date Osmel Allen MD Cosigner Signature: Date (if applicable) CC: Murray Hawkins MD; Jeniffer Houston DO ECHO, COMPLETE W/ Observed: 01/03/2018 Status: F Source: [facility] CONTRAST 2:30 PM [facility] RE[facility] Cardiovascular Services [address] [facility] [place] [address] Echo Complete 01/03/18 0902 MR#: [id number] Acct: [id number] Name: KATRINA MELVIN Rep #: [id number] : 1975 42 From: Murray Hawkins MD Attending Dr: Osmel Allen MD Status: REG CLI Ordering Dr: Osmel Allen MD Date: 01/03/18 Location: CVS Sex: M C Admitted: Reason For Study: DYSPNEA Procedure This was a 2D Doppler, Color Flow transthoracic echocardiogram. Definity deferred due to severe reaction on previous echo with chest and flank pain. Exam performed in department. Left Ventricle Normal LV size. The estimated ejection fraction is 50 %. Left ventricular systolic function is lower limits of normal. Stage 2 diastolic dysfunction. No regional wall motion abnormalities noted. Right Ventricle Normal RV size. Normal systolic function. Atria The left atrium is moderately enlarged. Normal right atrium. Mitral Valve Normal mitral valve. Tricuspid Valve Normal tricuspid valve. Mild (1+) tricuspid valve insufficiency. Pulmonary artery systolic pressure is 36 mmHg. Aortic Valve Normal aortic valve. Pulmonic Valve Normal pulmonic valve. Great Vessels Normal aortic root. The pulmonary artery is normal size. Normal inferior vena cava. Pericardium/Pleural No pericardial effusion. MMode/2D Measurements AND Calculations LVIDd: 6.4 cm IVSd: 1.2 cm Ao root diam: 3.7 cm LVIDs: 5.4 cm LVPWd: 1.2 cm RVDd: 3.4 cm FS: 16.4 % LAV(MOD-bp): 133.5 ml LA A4 area: 33.8 cm2 RA A4 area: 14.7 cm2 LAV(MOD-bp) Indexed: 52.2 ml/m2 LAV(MOD-sp2): 108.8 ml LAV(MOD-sp4): 135.5 ml Time Measurements MV dec time: 0.18 sec Doppler Measurements AND Calculations MV E max severino: 80.8 cm/sec Lat Peak E' Severino: 15.2 cm/sec Med Peak E' Severino: 8.6 cm/sec MV A max severino: 39.3 cm/sec E/E' lat: 5.3 E/E' med: 9.4 MV E/A: 2.1 Ao V2 max: 119.1 cm/sec LV V1 max: 94.7 cm/sec PA V2 max: 94.8 cm/sec Ao max P.7 mmHg LV V1 max P.6 mmHg TR max severino: 291.1 cm/sec TR max P.9 mmHg Interpretation Summary Normal LV size. The estimated ejection fraction is 50 %. Left ventricular systolic function is lower limits of normal. Stage 2 diastolic dysfunction. Pulmonary artery systolic pressure is 36 mmHg. The left atrium is moderately enlarged. Ordering Physician: Osmel Allen Referring Physician: JENIFFER HOUSTON Performed By: Aubree Teixeira, RDCS, RVT 01/03/18 1430 Date Murray Hawkins MD CC: Osmel Allen MD; Jeniffer Houston DO Date Dictated: 01/03/18 09 Date Transcribed: 01/03/18 1430 Vest Baster: Signed PULMONARY FUNCTION Observed: 01/03/2018 Status: F Source: [facility] TEST 1:32 PM [facility]POS[facility]ORY [facility] Pulmonary Services/Neurology [address] [address] MR#: [id number] Acct: [id number] Name: KATRINA MELVIN Rep #: [id number] : 1975 42 From: Romel Altamirano DO Referring Dr: Osmel Allen MD Status: REG CLI Ordering Dr: Date: Location: [facility] Sex: M C INTRODUCTION: The patient is a 42-year-old male that presents for pulmonary function testing secondary to a diagnosis of redness of breath. Respiratory therapy reports good patient effort. Bronchodilators were used during testing. INTERPRETATION: Forced expiration spirometry demonstrates no evidence of a large airways obstructive ventilatory defect. There was no significant response to aerosolized bronchodilators, based upon strict ATS criteria. Spirograms are of good quality and do not plateau indicating slow emptying of the lungs. Body plethysmography was performed and reveals a decreased TLC to 5.45 L, 65% of predicted, indicative of a moderate restrictive ventilatory impairment. The remainder of the lung volumes are symmetrically reduced. Diffusing capacity by single breath CO is mildly reduced at 74% of predicted. When compared to previous pulmonary function studies dated October 2016 there is been symmetric reductions in FEV1 and FVC. TLC and DLCO have also both decreased by approximately 16%. IMPRESSION: These pulmonary function studies demonstrate the presence of a moderate restrictive ventilatory defect with mild reduction in diffusing capacity. There has been worsening in the patient's PFTs since they were last completed in 2016, as noted above. 01/03/18 1332 <Electronically signed by Romel Altamirano DO> Date Romel Altamirano DO CC: Osmel Allen MD; Jeniffer Houston DO Date Dictated: 01/03/181328 Date Transcribed: 01/03/181328 Vest Baster: PAM Signed CBC W/DIFF, AUTOMATED Collected: 12/16/2017 Status: F Source: [facility] 9:37 AM [facility] REPOSITORY TYPE CODE TESTS RESULT OUT OF RANGE REFERENCE UNITS LAB L100.1000 4.4-11.0 K/mm3 Normal WBC 5.7 LAB L100.1200 4.6-6.2 M/mm3 Low RBC 4.57 LAB L100.1300 13.0-16.5 g/dl Normal HGB 13.5 LAB L100.1400 40-54 % Normal HCT 41.0 LAB L100.1500 80-94 fL Normal MCV 89.7 LAB L100.1600 27.0-32.0 pg Normal MCH 29.5 LAB L100.1700 32-36 g/gl Normal MCHC 32.9 LAB L100.1810 11.6-14.6 % Normal RDW CV 13.2 LAB L100.1820 35.1-43.9 fl Normal RDW SD 42.7 LAB L100.1900 150-450 K/mm3 Normal PLT 194 LAB L100.2000 6.2-12.0 fl Normal MPV 9.7 LAB L100.2100 47-70 % Normal NEUT% 59.9 LAB L100.2200 19-41 % Normal LY% 31.2 LAB L100.2300 0-10 % Normal MONO% 6.7 LAB L100.2400 0-5 % Normal EO% 1.8 LAB L100.2500 0-1 % Normal BASO% 0.2 LAB L100.2550 0.0-0.9 % Normal IM GRAN % 0.200 Result Comment: IG% - Immature Granulocytes (promyelocytes, myelocytes and metamyelocytes) > 1% indicates that a LEFT SHIFT is Present. LAB L100.2620 2.0-7.7 X10 3/uL Normal Absolute Neut 3.4 LAB L100.2720 0.83-4.51 X10 3/ul Normal Absolute Lymph 1.77 Performed By: #### L100.0100 #### [facility] [address] [place], [place], [address] HEMOGLOBIN A1C Collected: 12/16/2017 Status: F Source: [place] 9:37 AM [facility] REPOSITORY TYPE CODE TESTS RESULT OUT OF RANGE REFERENCE UNITS LAB L501.9985 4.2-6.3 % Normal HGB A1C 5.7 Performed By: #### L501.9985 #### [facility] [address] [place], [place], [address] COMPREHENSIVE METABOLIC Collected: 12/16/2017 Status: F Source: [facility] 9:37 AM [facility] REPOSITORY TYPE CODE TESTS RESULT OUT OF RANGE REFERENCE UNITS LAB L501.0100 74-106 mg/dL Normal GLU 95 Result Comment: Please note revised GLUCOSE reference range effective 2017. LAB L501.1000 7-18 mg/dL Normal BUN 14 LAB L501.1100 0.70-1.30 mg/dL Low CREAT,SERUM 0.63 Result Comment: The validity of the calculated GFR AND GFRAA in patients over 70 years has not been determined. Clinical correlation is essential. LAB L501.1110 >60 mL/min Normal EST GFR 149 Result Comment: Non- GFR Calc LAB L501.1115 >60 mL/min Normal EST GFR - AA 181 Result Comment: GFR Calc LAB L501.1300 10-20 RATIO High BUN/CRE 22.4 LAB L501.1500 6.4-8.2 g/dL T Normal PROT 6.9 LAB L501.1800 3.2-5.0 g/dL Normal ALB 3.5 LAB L501.1950 2.2-4.2 g/dL Normal GLOB 3.4 LAB L501.2000 0.9-2.4 RATIO Normal A/G 1.0 LAB L501.2200 8.5-10.1 mg/dL CA Normal 8.5 LAB L501.4100 15-37 U/L Low AST 14 LAB L501.4305 45-117 U/L Normal ALK P 71 LAB L501.4405 16-61 U/L Normal ALT 37 LAB L501.4600 0.20-1.00 mg/dL T Normal BILI 0.40 LAB L501.5300 136-145 mmol/L NA Normal 142 LAB L501.5600 3.5-5.1 mmol/L K Normal 4.0 LAB L501.5900 98-107 mmol/L High CL 108 LAB L501.6100 21.0-32.0 mmol/L Normal CO2 28.0 LAB L501.6200 5-15 Normal GAP 6 Performed By: #### L500.4050, L500.4100, L501.14731, L501.9520 #### [facility] [address] [place], [place], [address] LIPID PROFILE Collected: 12/16/2017 Status: F Source: [facility] 9:37 AM [facility] REPOSITORY TYPE CODE TESTS RESULT OUT OF RANGE REFERENCE UNITS LAB L501.4900 200 mg/dL Normal CHOL 162 Result Comment: <200 mg/dL Desirable 200-240 mg/dL Borderline >240 mg/dL High Risk LAB L501.5000 mg/dL Normal TRIG 99 Result Comment: The drugs N-Acetylcysteine and Metamizole may falsely depress this assay. Serum Triglycerides Reference Interval Normal <150 mg/dL Borderline high 150 - 199 mg/dL High 200 - 499 mg/dL Very High > or = 500 mg/dL LAB L501.6400 mg/dL Normal HDL 54 Result Comment: The drugs N-Acetylcysteine and Metamizole may falsely depress this assay. Reference Range HDL <40 mg/dL Low HDL Cholesterol HDL >or= 60 mg/dL High HDL Cholesterol LAB L501.6500 0-130 mg/dL Normal LDL 88 LAB L501.6600 5-40 mg/dL Normal VLDL 20 Performed By: #### L500.4050, L500.4100, L501.42409, L501.9520 #### [facility] [address] [place], [place], [address] FREE T3 Collected: 12/16/2017 Status: F Source: [place] 9:37 AM [facility] REPOSITORY TYPE CODE TESTS RESULT OUT OF RANGE REFERENCE UNITS LAB L501.47745 2.18-3.98 pg/mL Normal FREE T3 2.4 Performed By: #### L500.4050, L500.4100, L501.14222, L501.9520 #### [facility] [address] [place], [place], [address] THYROID STIM HORMONE Collected: 12/16/2017 Status: F Source: [facility] (TSH) 9:37 AM [facility] REPOSITORY TYPE CODE TESTS RESULT OUT OF RANGE REFERENCE UNITS LAB L501.9520 0.358-3.74 uIU/mL Normal TSH 1.10 Performed By: #### L500.4050, L500.4100, L501.06798, L501.9520 #### [facility] [address] [place], [address] 12 LEAD ELECTROCARDIOGRAM Observed: 12/13/2017 Status: F Source: [place] 10:25 AM [facility] Cardiovascular Services [address] [place] [address] 12 Lead EKG 12/10/17 1117 MR#: [id number] Acct: [id number] Name: KATRINA MELVIN Rep #: [id number] : 1975 42 From: Arcadio Barth MD Attending Dr: Status: DEP ER Ordering Dr: Fawad Carrasco MD Date: 12/10/17 Location: ED Sex: M C Admitted: Test Reason : CHEST PAIN Blood Pressure : / mmHG Vent. Rate : 094 BPM Atrial Rate : 094 BPM P-R Int : 162 ms QRS Dur : 100 ms QT Int : 364 ms P-R-T Axes : 021 008 024 degrees QTc Int : 455 ms Normal sinus rhythm Normal ECG Confirmed by ARCADIO BARTH ([id number]), tape editor NIRAJ HOFF ([id number]) on 12/13/2017 10:24:52 AM Referred By: FAIZAN/JENNY Confirmed By:ARCADIO BARTH 12/13/17 1024 Date Arcadio Barth MD CC: Fawad Carrasco MD; Jeniffer Houston DO Signed EMERGENCY DEPARTMENT Observed: 12/10/2017 Status: F Source: [facility] SUMMARY 4:12 PM [facility] Medical Records Department [address] [place] [address] Emergency Department Summary 12/10/17 1210 MR#: [id number] Acct: [id number] Name: KATRINA MELVIN Rep #: [id number] : 1975 42 From: Fawad Carrasco MD PCP: Jeniffer Houston DO Status: DEP ER - ER Visit Summary Date of Service: 12/10/17 Chief Complaint: Chest pain History of Present Illness: The patient is a [address] 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 He is currently on Lovenox twice daily. He states for the last 1-2 weeks he has had constant chest pain that waxes and wanes in intensity. He describes it as sharp and stabbing. He also describes shortness of breath with it. He has no underlying cardiac disease. He has never had any cardiac surgery. He denies any pleuritic nature of the pain or any hemoptysis. Physical Examination: Very male no acute distress. Vital signs are stable afebrile. Blood pressure 135/95. Pulse ox 97% on room air no signs of hypoxia. H EENT exam unremarkable neck nontender no lymphadenopathy. Lungs clear to auscultation bilaterally. Heart regular rate and rhythm no murmur. Abdomen soft nontender. Extremities moving all 4. Neurovascular intact. Equal symmetrical radial pulses. Calves nontender, no edema no cords. Neurologically is awake alert without focal motor deficits. Test Results: Chest x-ray shows normal cardiac silhouette and mediastinum. EKG sinus rhythm rate 94 no signs of OR or ischemia. Unchanged from a prior. CBC normal. Normal H AND H. Chemistries normal. Normal creatinine and gap. Troponin normal d-dimer normal. Emergency Department Course and Treatment: Exam is unremarkable. He will undergo a cardiac workup along with a d-dimer. Currently he is anticoagulated daily with Lovenox twice daily. Treatment Plan: Repeat exam patient doing well 1320s. He had a long discussion of all his test results. He is comfortable being discharged home with outpatient follow-up with his primary care physician Dr. Houston. Clinically I do not have a strong suspicion is to be cardiac but given his age they may want to do an outpatient stress test. Disposition: Discharged Impression: Chest pain uncertain etiology History of prior PEs anticoagulated on Lovenox This note was generated with [employer] dictation software. It may contain incorrect words, spelling, and punctuation that were not noted in review of the chart prior to signing ED Disposition - Plan for ED Patient: Chief Complaint: Chest Pain Referrals: Jeniffer Houston, DO [Primary Care Provider] - What to do if you have Problems For any increased pain, shortness of breath, bleeding, nausea or vomiting, chest pain, or any unexpected problems, contact your Primary Care Provider. Call [employer] [facility] ([phone]) or report to the closest Emergency Room. Call 911 if necessary. 12/10/17 1612 <Electronically signed by Fawad Carrasco MD> Date Fawad Carrasco MD Cosigner Signature (If Indicated): Date CC: Jeniffer Houston DO DISCHARGE INSTRUCTION Observed: 12/10/2017 Status: F Source: [facility] 4:12 PM [facility] RE[facility]ITORY [facility] Medical Records Department [address] [place] [address] Discharge Instruction 12/10/17 1331 MR#: [id number] Acct: [id number] Name: KATRINA MELVIN Rep #: [id number] : 1975 42 From: Fawad Carrasco MD PCP: Jeniffer Houston DO Status: DEP ER ED Disposition - Plan for ED Patient: Disposition: Home or Assisted Living Chief Complaint: Chest Pain Instructions: ED Chest Pain Atypical Unkn Cause Referrals: Jeniffer Houston DO [Primary Care Provider] - As soon as possible Additional Instructions: Follow-up your primary care doctor. You and he may want to discuss possible outpatient stress testing. Return if feeling worse. All your tests today were normal. What to do if you have Problems For any increased pain, shortness of breath, bleeding, nausea or vomiting, chest pain, or any unexpected problems, contact your Primary Care Provider. Call [facility] ([phone]) or report to the closest Emergency Room. Call 911 if necessary. 12/10/17 1612 <Electronically signed by Fawad Carrasco MD> Date Fawad Whatleyer Signature (If Indicated): Date CC: Jeniffer Houston DO CBC W/DIFF, AUTOMATED Collected: 12/10/2017 Status: F Source: [place] 11:30 AM [facility] REPOSITORY TYPE CODE TESTS RESULT OUT OF RANGE REFERENCE UNITS LAB L100.1000 4.4-11.0 K/mm3 Normal WBC 6.8 LAB L100.1200 4.6-6.2 M/mm3 Normal RBC 5.15 LAB L100.1300 13.0-16.5 g/dl Normal HGB 15.4 LAB L100.1400 40-54 % Normal HCT 45.9 LAB L100.1500 80-94 fL Normal MCV 89.1 LAB L100.1600 27.0-32.0 pg Normal MCH 29.9 LAB L100.1700 32-36 g/gl Normal MCHC 33.6 LAB L100.1810 11.6-14.6 % Normal RDW CV 13.4 LAB L100.1820 35.1-43.9 fl Normal RDW SD 43.7 LAB L100.1900 150-450 K/mm3 Normal PLT 231 LAB L100.2000 6.2-12.0 fl Normal MPV 9.3 LAB L100.2100 47-70 % Normal NEUT% 54.4 LAB L100.2200 19-41 % Normal LY% 35.9 LAB L100.2300 0-10 % Normal MONO% 8.3 LAB L100.2400 0-5 % Normal EO% 1.0 LAB L100.2500 0-1 % Normal BASO% 0.1 LAB L100.2550 0.0-0.9 % Normal IM GRAN % 0.300 Result Comment: IG% - Immature Granulocytes (promyelocytes, myelocytes and metamyelocytes) > 1% indicates that a LEFT SHIFT is Present. LAB L100.2620 2.0-7.7 X10 3/uL Normal Absolute Neut 3.7 LAB L100.2720 0.83-4.51 X10 3/ul Normal Absolute Lymph 2.42 Performed By: #### L100.0100 #### [facility] [address] [place], [address] BASIC METABOLIC Collected: 12/10/2017 Status: F Source: [facility] PROFILE (BMP) 11:30 AM [facility] REPOSITORY TYPE CODE TESTS RESULT OUT OF RANGE REFERENCE UNITS LAB L501.0100 74-106 mg/dL Low GLU 73 Result Comment: Please note revised GLUCOSE reference range effective 2017. LAB L501.1000 7-18 mg/dL High BUN 19 LAB L501.1100 0.70-1.30 mg/dL Normal CREAT,SERUM 0.76 Result Comment: The validity of the calculated GFR AND GFRAA in patients over 70 years has not been determined. Clinical correlation is essential. LAB L501.1110 >60 mL/min Normal EST GFR 120 Result Comment: Non- GFR Calc LAB L501.1115 >60 mL/min Normal EST GFR - AA 145 Result Comment: GFR Calc LAB L501.1255 ml/min Normal Estimated CRCL 155.45 LAB L501.1300 10-20 RATIO High BUN/CRE 25.0 LAB L501.2200 8.5-10 mg/dL .1 CA Normal 9.2 LAB L501.5300 136-14 mmol/L 5 NA Normal 143 LAB L501.5600 3.5-5. mmol/L 1 K Normal 4.3 LAB L501.5900 98-107 mmol/L CL Normal 107 LAB L501.6100 21.0-3 mmol/L 2.0 CO2 Normal 27.0 LAB L501.6200 5-15 GAP Normal 9 Performed By: #### L500.2500, L501.4010 #### [facility] [address] [place], [address] TROPONIN-I Collected: 12/10/2017 Status: F Source: [place] 11:30 AM [facility] REPOSITORY TYPE CODE TESTS RESULT OUT OF RANGE REFERENCE UNITS LAB L501.4010 <0.045 ng/mL Normal < 0.015 TROPONIN-I Result Comment: TROPONIN-I EXPECTED VALUES <0.045 Negative 0.045 - 0.590 Consistent with Cardiac Damage > OR = 0.600 Critical Value Not every elevated troponin is indicative of OR. These values should be used with clinical judgement in examining the patient's clinical picture for diagnosis. To establish a diagnosis of OR versus myocardial injury, there must be a demonstrated rise and/or fall in the troponin values, in addition to ischemic symptoms, EKG changes, new regional wall motion abnormality, and/or angiographical evidence. PLEASE NOTE: REFERENCE RANGES EDITED 17 Performed By: #### L500.2500, L501.4010 #### [facility] [address] [place], [address] D-DIMER QUANTITATIVE Collected: 12/10/2017 Status: F Source: [place] (DVT/PE) 11:30 AM [facility] REPOSITORY TYPE CODE TESTS RESULT OUT OF RANGE REFERENCE UNITS LAB L300.8000 0.27-0.49 FEU/ug/m Low D-DIMER < 0.27 QUANT Result Comment: NORMAL D-Dimer level (<0.50) indicates no DVT or PE. Performed By: #### L300.8000 #### [facility] [address] [place], [address] CHEST 1 VIEW Observed: 12/10/2017 Status: F Source: [place] (PORTABLE) 11:18 AM [facility] REPOSITORY [facility] Imaging Services [address] [place] [address] Chest 1 View (Portable) MR#: [id number] Acct: [id number] Name: KATRINA MELVIN Oscar Rep #: [id number] : 1975 M 42 From: Lyle Marroquin MD PCP: Jeniffer Houston DO Status: REG ER Study: Chest 1 View (Portable) Date of Exam: 12/10/17 Exam# [id number] Ordering Dr: Fawad Carrasco MD STUDY: X-RAY CHEST REASON FOR EXAM: Male, 42 years old. Chest pain. TECHNIQUE: Single AP portable view of the chest. COMPARISON: Comparison is made with prior study dated June 20, 2016. FINDINGS: EKG electrodes are seen. The lungs are clear and expanded. There is no demonstrated pleural abnormality. Normal size heart. Normal mediastinum and suly. Normal visualized pulmonary arteries. Normal visualized aortic arch and descending thoracic aorta. Normal visualized thoracic spine. Normal visualized ribs, clavicles, and shoulders. There is no demonstrated abnormality of the visualized soft tissue structures of the upper abdomen. RAD/Chest 1 View (Portable) IMPRESSION: Normal x-ray examination of the chest. Electronically Signed: Lyle Marroquin MD at 12:29 EDT Tel [phone], Service support , CC: Fawad Carrasco MD; Jeniffer Houston DO Vest Baster: Signed HEMOGLOBIN A1C Collected: 10/06/2017 Status: F Source: [place] 8:11 AM [facility] REPOSITORY TYPE CODE TESTS RESULT OUT OF RANGE REFERENCE UNITS LAB L501.9985 4.2-6.3 % Normal HGB A1C 5.6 Performed By: #### L501.9985 #### [facility] [address] [place], [place], [address] COMPREHENSIVE METABOLIC Collected: 10/06/2017 Status: F Source: [facility] 8:11 AM [facility] REPOSITORY TYPE CODE TESTS RESULT OUT OF RANGE REFERENCE UNITS LAB L501.0100 74-106 mg/dL Normal GLU 94 Result Comment: Please note revised GLUCOSE reference range effective 2017. LAB L501.1000 7-18 mg/dL High BUN 22 LAB L501.1100 0.70-1.30 mg/dL Normal CREAT,SERUM 0.71 Result Comment: The validity of the calculated GFR AND GFRAA in patients over 70 years has not been determined. Clinical correlation is essential. LAB L501.1110 >60 mL/min Normal EST GFR 129 Result Comment: Non- GFR Calc LAB L501.1115 >60 mL/min Normal EST GFR - AA 156 Result Comment: GFR Calc LAB L501.1300 10-20 RATIO High BUN/CRE 30.9 LAB L501.1500 6.4-8.2 g/dL T Normal PROT 7.5 LAB L501.1800 3.2-5.0 g/dL Normal ALB 4.0 LAB L501.1950 2.2-4.2 g/dL Normal GLOB 3.5 LAB L501.2000 0.9-2.4 RATIO Normal A/G 1.1 LAB L501.2200 8.5-10.1 mg/dL CA Normal 9.3 LAB L501.4100 15-37 U/L Normal AST 32 LAB L501.4305 45-117 U/L Normal ALK P 83 LAB L501.4405 16-61 U/L High ALT 66 LAB L501.4600 0.20-1.00 mg/dL T Normal BILI 0.50 LAB L501.5300 136-145 mmol/L NA Normal 140 LAB L501.5600 3.5-5.1 mmol/L K Normal 4.1 LAB L501.5900 98-107 mmol/L CL Normal 105 LAB L501.6100 21.0-32.0 mmol/L Normal CO2 26.0 LAB L501.6200 5-15 Normal GAP 9 Performed By: #### L500.4050, L500.4100, L501.83127, L501.9520, L506.0400 #### [facility] [address] [place], [place], [id number] LIPID PROFILE Collected: 10/06/2017 Status: F Source: [place] 8:11 AM [facility] REPOSITORY TYPE CODE TESTS RESULT OUT OF RANGE REFERENCE UNITS LAB L501.4900 200 mg/dL Normal CHOL 170 Result Comment: <200 mg/dL Desirable 200-240 mg/dL Borderline >240 mg/dL High Risk LAB L501.5000 mg/dL High TRIG 350 Result Comment: The drugs N-Acetylcysteine and Metamizole may falsely depress this assay. Serum Triglycerides Reference Interval Normal <150 mg/dL Borderline high 150 - 199 mg/dL High 200 - 499 mg/dL Very High > or = 500 mg/dL LAB L501.6400 mg/dL Normal HDL 45 Result Comment: The drugs N-Acetylcysteine and Metamizole may falsely depress this assay. Reference Range HDL <40 mg/dL Low HDL Cholesterol HDL >or= 60 mg/dL High HDL Cholesterol LAB L501.6500 0-130 mg/dL Normal LDL 55 LAB L501.6600 5-40 mg/dL High VLDL 70 Performed By: #### L500.4050, L500.4100, L501.45423, L501.9520, L506.0400 #### [facility] [address] [place], [place], [id number] FREE T3 Collected: 10/06/2017 Status: F Source: [place] 8:11 AM [facility] REPOSITORY TYPE CODE TESTS RESULT OUT OF RANGE REFERENCE UNITS LAB L501.37603 2.18-3.98 pg/mL Normal FREE T3 3.0 Performed By: #### L500.4050, L500.4100, L501.20959, L501.9520, L506.0400 #### [facility] [address] [place], [address] THYROID STIM HORMONE Collected: 10/06/2017 Status: F Source: [place] (TSH) 8:11 AM [facility] REPOSITORY TYPE CODE TESTS RESULT OUT OF RANGE REFERENCE UNITS LAB L501.9520 0.358-3.74 uIU/mL Normal TSH 1.09 Performed By: #### L500.4050, L500.4100, L501.80023, L501.9520, L506.0400 #### [facility] [address] [place], [address] T4 FREE DIRECT Collected: 10/06/2017 Status: F Source: [place] 8:11 AM [facility] REPOSITORY TYPE CODE TESTS RESULT OUT OF RANGE REFERENCE UNITS LAB L506.0400 0.76-1.46 ng/dL Normal T4 FREE 1.03 DIRECT Performed By: #### L500.4050, L500.4100, L501.57806, L501.9520, L506.0400 #### [facility] [address] [place], [address] PULMONARY VISIT REPORT Observed: 07/21/2017 Status: F Source: [place] 7:56 AM [facility] REPOSITORY [facility] [address] [place] [address] OFFICE VISIT Date of Service: 07/21/17 MR#: [id number] Acct: [id number] Name: KATRIAN MELVIN Rep #: [id number] : 1975 Provider: Osmel Allen MD Age/Sex: 41/M Location: [facility] Status: Signed Assessment AND Plan 1. 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 VQ scan shows normalization of matching between perfusion and ventilation. This would essentially rule out any chronic thromboembolic pulmonary hypertension. Patient is reporting some dyspnea with exertion. Clinical suspicion, given previous pulmonary function test with preserved function, would be that this indicates deconditioning. From a pulmonary perspective, patient is free to proceed with exercise program at the direction of other physicians. There is no pulmonary limitation at this time. Will repeat echocardiogram and pulmonary function tests in 6 months (one year from previous testing) to assess for any chronic issues moving forward. Patient has had a history of diastolic dysfunction on previous echocardiograms. Continue with anticoagulation. Orders Orders: 2. SOB (shortness of breath) R06.02 Plan See the above plan. Clinical suspicion for deconditioning. Cannot exclude a cardiac etiology, but deconditioning is classically limited by cardiac function. Unclear what to make of patient's reported episodes. Decreased perfusion would lead to decreased saturations, but very much doubt the patient is having subclinical pulmonary embolisms with resolution within minutes on full anticoagulation. Will repeat pulmonary function test and echocardiogram prior to next visit to ensure stability. Complete PFT and echocardiogram prior to next visit Orders Orders: Plan Detail Other Medications New: Discontinued: Follow Up 6 Months ([facility]) HPI 6 M FU: Chief Complaint: Shortness of breath Details: Patient is a 41-year-old male who presents for evaluation secondary to shortness of breath on exertion. Since last visit, patient denies any ER visits, hospitalizations or prednisone burst. Patient reports he is currently being treated with Lovenox therapy. Patient does report that he went back to the gym for short period of time, but has discontinued this for approximately the last 2 months. Patient denies any bleeding complications, but has noted intermittent palpitations that he attributes to PVCs. Patient does report intermittent periods of sinus pause with diaphoresis and decreased saturations. Patient is unclear of the etiology, but states they typically resolve spontaneously. These are not associated with chest pain or syncope. Patient does report recent trauma secondary to knee instability. Patient had a lower extremity doppler secondary to concerns for lower extremity swelling associated with the fall. This was negative. Patient denies any bleeding complications associated with the trauma. Personally reviewed with the patient Lower extremity Dopplers (07/14/2017): No DVT VQ scan (02/03/2017): Normal VQ scan. Mild central clumping noted. Intake Vital Signs07/21/17 Height 6 ft 4 in 07/21/17 Weight: 142.882 kg Intake Visit Reasons: 6 M FU Accompanied by: Allergies codeine Allergy (Verified 07/21/17 06:42) Other perflutren [From Skysheet] Adverse Reaction (Verified 07/21/17 06:42) Pain in joints Medications Cholecalciferol (Vitamin D3) [Vitamin D3] 1,000 unit PO DAILY 02/20/16 [History Confirmed 07/21/17] Lisinopril 5 mg PO DAILY 02/20/16 [History Confirmed 07/21/17] Metformin HCl [Glucophage] 500 mg PO BIDCM 02/20/16 [History Confirmed 07/21/17] glucosamine HCl 1,500 mg tablet 1,500 mg PO ONCE 07/15/17 [History Confirmed 07/21/17] insulin lispro protamine-lispro 100 unit/mL (75-25) subcutaneous pen See Label Instructions SC QDAY 07/15/17 [History Confirmed 07/21/17] liraglutide 0.6 mg/0.1 mL (18 mg/3 mL) subcutaneous pen injector 0.6 mg SC ONCE 07/15/17 [History Confirmed 07/21/17] methimazole 15 mg tablet 15 mg PO QDAY 07/15/17 [History Confirmed 07/21/17] miscellaneous medical supply misc See Dose Instructions .ROUTE .MEDSUPPLY #1 ea 07/15/17 [History Confirmed 07/21/17] multivitamin tablet 1 tab PO QAM 07/15/17 [History Confirmed 07/21/17] lovenox 135 .ROUTE BID 07/21/17 [History Confirmed 07/21/17] [facility] Medical History Thyroid disorder (Chronic) DVT of leg (deep venous thrombosis) (Acute) acute hypoxia (Acute) SOB (shortness of breath) (Acute) Contusion of left knee, initial encounter (Acute) Other internal derangements of left knee (Acute) Pain of left knee after injury (Acute) Other tear of lateral meniscus, current injury, left knee, subsequent encounter (Acute) Other tear of medial meniscus, current injury, left knee, subsequent encounter (Acute) Pulmonary embolism (Resolved) Diabetes (Chronic) HTN (hypertension) (Chronic) Chest pain (Acute) Diabetes (Chronic) Surgical History torn cartilage behind knee (Resolved) Partially torn MCL (Resolved) Torn PCL (Resolved) Torn meniscus (Resolved) Family History Father Hypertension Social History Smoking Status: Former smoker how long ago did patient quit smokin, 2pks/day second hand exposure: Yes alcohol intake: current alcohol intake frequency: a few times a month substance use type: does not use Review of Systems Const CONSTITUTIONAL: Positive body ache, daytime sleepiness, fatigue and headache(s); negative anorexia, chills, fever(s), night sweats, oral thrush, stops breathing during sleep, weight loss, sleeping in chair, weight loss, weight gain, frequent colds, seasonal allergies, other or orthopnea EETM Ear Nose Throat Mouth: Positive hearing normal and headache(s); negative hard of hearing, hoarseness, dry mouth in morning, change in vision, itchy eyes, eye pain, swallowing Difficulty, ear pain, nose bleed, mouth pain, nasal congestion, nasal discharge, post nasal drip, sinus pain, sinus pressure, sore throat or other Cardio Cardiovascular: Positive chest pain, irregular heart rhythm, edema and palpitations; negative chest pain at rest, chest pain with activity, shortness of breath when lying down, murmur or other Resp Respiratory: Positive as per HPI, shortness of breath and chest tightness; negative pain with cough, wheezing, chest congestion, cough, pain on inspiration, inhalers, increase use of rescue inhalers, snoring, apnea or other Gastro Gastrointestional: Negative bloody stools, change in appetite, difficulty swallowing, reflux, hematemesis, melena stool, loose stool, constipation or other Genitourinary: Negative blood in urine, nocturia, pain with urination or other Musc Musculoskeletal: Positive body pain; negative back pain, neck pain or other Skin/Breast Skin/Breast: Positive rash; negative dry skin, itching, unusual bruising, breast lump or other Neuro Neurological: Positive restless legs; negative confusion, weakness or other Psych Psychocological: Positive anxiety and hopelessness (possible per patient ); negative abnormal sleep pattern, thoughts of hurting self/others or other Lymph Lymphatic: Negative easy bleeding, easy bruising, swollen lymph nodes or other Exam Const Constitutional: Positive conversant, cooperative, in no acute respiratory distress, healthy appearing, well developed, well nourished, good hygiene and obese Head Head: Positive normocephalic and atraumatic; negative cyanosis of lips/distal nose, microcephalic or macrocephalic Eyes Eye: Positive clear conjunctiva; negative nystagmus or scleral abnormality Ears Ear: Positive hearing normal and external ears normal; negative hard of hearing Nose Nose: Positive external nose normal, septum normal and no nasal discharge; negative epistaxis or nasal polyp Mouth Mouth: Positive oral mucosae normal, no lesions and good dentition; negative post nasal drip or oral thrush present Mallampati Score: II: Mallampati Score Neck Neck: Positive normal visual inspection, thick neck, full ROM, trachea midline and male neck greater than 43 cm (17 in); negative lymphadenopathy or JVD Chest Wall Chest: Positive normal inspection of the chest; negative increased A/P diameter, symmetric chest movement, crepitus or tenderness Resp lung sounds: Positive clear to auscultation, good air exchange and normal expiratory time; negative wheezes, rhonchi or rales Cardio Cardiac: Positive regular rate, regular rhythm, S1 normal, S2 normal and normal PMI; negative murmur, rub or gallop GI GI: Positive obese, normal to inspection and normal bowel sounds; negative distended or ascites Genitourinary: Positive deferred Musc Musculoskeletal: Positive steady gait and ROM normal; negative using an assistive device for ambulation, kyphosis or scoliosis Skin Pulmonary Skin Exam: Positive rash and intact; negative lesion, ulcers, erythema or dermal atrophy Pulses Pulse: Yes pulses normal x4 extremities Extremities Extremities: Yes capillary refill normal, No clubbing, No cyanosis, No edema, No stasis dermatitis Neuro Neurologic: Yes conversant, Yes no focal neuro deficits, Yes cooperative, Yes normal cognition, Yes normal coordination, Yes normal concentration Lymph Lymphatic: No lymphadenopathy, No tenderness, No cervical adenopathy, No axillary adenopathy Psych Appearance: Positive grossly normal Mental Status: Positive mental status grossly normal Mood: Positive congruent mood Affect: Positive normal affect Coding Level of Care Code Off vis,est,level 3 Diagnoses Saddle embolus of pulmonary artery without acute cor pulmonale, unspecified chronicity I26.92 Pulmonary embolism type: saddle Chronicity: unspecified Acute cor pulmonale presence: without acute cor pulmonale SOB (shortness of breath) R06.02 07/21/17 0756 <Electronically signed by Osmel Allen MD> Date Osmel Allen MD Cosigner Signature: Date (if applicable) CC: Jeniffer Houston DO; Al Winter DO CBC W/DIFF, AUTOMATED Collected: 07/16/2017 Status: F Source: [place] 7:06 AM [facility] REPOSITORY TYPE CODE TESTS RESULT OUT OF RANGE REFERENCE UNITS LAB L100.1000 4.4-11.0 K/mm3 Normal WBC 6.2 LAB L100.1200 4.6-6.2 M/mm3 Normal RBC 4.87 LAB L100.1300 13.0-16.5 g/dl Normal HGB 14.6 LAB L100.1400 40-54 % Normal HCT 44.4 LAB L100.1500 80-94 fL Normal MCV 91.2 LAB L100.1600 27.0-32.0 pg Normal MCH 30.0 LAB L100.1700 32-36 g/gl Normal MCHC 32.9 LAB L100.1810 11.6-14.6 % Normal RDW CV 13.9 LAB L100.1820 35.1-43.9 fl High RDW SD 45.2 LAB L100.1900 150-450 K/mm3 Normal PLT 203 LAB L100.2000 6.2-12.0 fl Normal MPV 9.8 LAB L100.2100 47-70 % Normal NEUT% 59.3 LAB L100.2200 19-41 % Normal LY% 31.5 LAB L100.2300 0-10 % Normal MONO% 8.5 LAB L100.2400 0-5 % Normal EO% 0.3 LAB L100.2500 0-1 % Normal BASO% 0.2 LAB L100.2550 0.0-0.9 % Normal IM GRAN % 0.200 Result Comment: IG% - Immature Granulocytes (promyelocytes, myelocytes and metamyelocytes) > 1% indicates that a LEFT SHIFT is Present. LAB L100.2620 2.0-7.7 X10 3/uL Normal Absolute Neut 3.7 LAB L100.2720 0.83-4.51 X10 3/ul Normal Absolute Lymph 1.96 Performed By: #### L100.0100 #### [facility] [address] [place], [address] COMPREHENSIVE METABOLIC Collected: 07/16/2017 Status: F Source: [facility] 7:06 AM [facility] REPOSITORY TYPE CODE TESTS RESULT OUT OF RANGE REFERENCE UNITS LAB L501.0100 70-110 mg/dL High GLU 118 Result Comment: Fasting Glucose result from 110 to <126 mg/dL suggests IMPAIRED HOMEOSTASIS per A.D.A. criteria. LAB L501.1000 7-18 mg/dL High BUN 22 LAB L501.1100 0.70-1.30 mg/dL Normal CREAT,SERUM 0.79 Result Comment: The validity of the calculated GFR AND GFRAA in patients over 70 years has not been determined. Clinical correlation is essential. LAB L501.1110 >60 mL/min Normal EST GFR 115 Result Comment: Non- GFR Calc LAB L501.1115 >60 mL/min Normal EST GFR - AA 139 Result Comment: GFR Calc LAB L501.1300 10-20 RATIO High BUN/CRE 27.9 LAB L501.1500 6.4-8.2 g/dL T Normal PROT 7.4 LAB L501.1800 3.4-5.0 g/dL Normal ALB 3.8 Result Comment: Please note revised Albumin AND Globulin reference range effective 2017. LAB L501.1950 2.2-4.2 g/dL Normal GLOB 3.6 LAB L501.2000 0.9-2.4 RATIO Normal A/G 1.1 LAB L501.2200 8.5-10.1 mg/dL Normal CA 8.6 LAB L501.4100 15-37 U/L Normal AST 21 LAB L501.4305 45-117 U/L Normal ALK P 79 LAB L501.4405 12-78 U/L Normal ALT 56 LAB L501.4600 0.20-1.00 mg/dL Normal T BILI 0.60 LAB L501.5300 136-145 mmol/L Normal NA 139 LAB L501.5600 3.5-5.1 mmol/L Normal K 4.4 LAB L501.5900 98-107 mmol/L Normal CL 103 LAB L501.6100 21.0-32.0 mmol/L Normal CO2 25.0 LAB L501.6200 5-15 Normal GAP 11 Performed By: #### L500.4050, L500.4100, L501.54092, L501.9520, L506.0400 #### [facility] [address] [place], [place], [id number] LIPID PROFILE Collected: 07/16/2017 Status: F Source: [place] 7:06 AM [facility] REPOSITORY TYPE CODE TESTS RESULT OUT OF RANGE REFERENCE UNITS LAB L501.4900 200 mg/dL Normal CHOL 197 Result Comment: <200 mg/dL Desirable 200-240 mg/dL Borderline >240 mg/dL High Risk LAB L501.5000 mg/dL High TRIG 488 Result Comment: The drugs N-Acetylcysteine and Metamizole may falsely depress this assay. TRIGLYCERIDE IS GREATER THAN 400 mg/dL. LDL RESULT IS INVALID AND WILL NOT BE REPORTED. Serum Triglycerides Reference Interval Normal <150 mg/dL Borderline high 150 - 199 mg/dL High 200 - 499 mg/dL Very High > or = 500 mg/dL LAB L501.6400 mg/dL Normal HDL 47 Result Comment: The drugs N-Acetylcysteine and Metamizole may falsely depress this assay. Reference Range HDL <40 mg/dL Low HDL Cholesterol HDL >or= 60 mg/dL High HDL Cholesterol LAB L501.6500 0-130 mg/dL Test Normal not performed LDL LAB L501.6600 5-40 mg/dL Test Normal not performed VLDL Performed By: #### L500.4050, L500.4100, L501.53721, L501.9520, L506.0400 #### [facility] [address] [place], [place], [address] FREE T3 Collected: 07/16/2017 Status: F Source: [place] 7:06 AM [facility] REPOSITORY TYPE CODE TESTS RESULT OUT OF RANGE REFERENCE UNITS LAB L501.91048 2.18-3.98 pg/mL Normal FREE T3 2.4 Performed By: #### L500.4050, L500.4100, L501.92378, L501.9520, L506.0400 #### [facility] [address] [place], [address] THYROID STIM HORMONE Collected: 07/16/2017 Status: F Source: [place] (T[facility]) 7:06 AM [facility] REPOSITORY TYPE CODE TESTS RESULT OUT OF RANGE REFERENCE UNITS LAB L501.9520 0.358-3.74 uIU/mL Normal TSH 3.17 Performed By: #### L500.4050, L500.4100, L501.34798, L501.9520, L506.0400 #### [facility] [place], [address] T4 FREE DIRECT Collected: 07/16/2017 Status: F Source: [place] 7:06 AM [facility] REPOSITORY TYPE CODE TESTS RESULT OUT OF RANGE REFERENCE UNITS LAB L506.0400 0.76-1.46 ng/dL Normal T4 FREE 0.84 DIRECT Performed By: #### L500.4050, L500.4100, L501.50649, L501.9520, L506.0400 #### [facility] [place], [address] HEMOGLOBIN A1C Collected: 07/16/2017 Status: F Source: [place] 7:06 AM [facility] REPOSITORY TYPE CODE TESTS RESULT OUT OF RANGE REFERENCE UNITS LAB L501.9985 4.2-6.3 % Normal HGB A1C 6.1 Performed By: #### L501.9985 #### [facility] [address] [place], [address] VENOUS DUPLEX LOWER Observed: 07/14/2017 Status: F Source: [place] EXTREMITY 1:16 PM [facility] REPOSITORY [facility] [address] [place] [address] Venous Duplex US, Unilateral 07/14/175 MR#: [id number] Acct: [id number] Name: KATRINA MELVIN Rep #: [id number] : 1975 41 From: Marcus Gabriel MD Attending Dr: Keshav Velasquez MD Status: REG CLI Ordering Dr: Keshav Velasquez MD Date: 07/14/17 Location: [facility] Sex: M C Admitted: Reason For Study: DVT LLE Procedure LEFT Exam performed in department. GSV is normal. A preliminary report was called and/or faxed CFV is compressible, spontaneous, phasic, to DR VELASQUEZ. competent, and demonstrates normal augmentation. FV is compressible, spontaneous, phasic, competent and demonstrates normal augmentation. POP V is compressible, spontaneous, phasic, competent and demonstrates normal augmentation. T/P Trunk is compressible. PTV is compressible. LT PerV is compressible. Interpretation Summary Deep veins of the left lower extremity are patent and compressible segmentally. There is no evidence of left lower extremity deep vein thrombosis. Valvular competence appears intact within the proximal deep venous system on the left . The left greater saphenous vein appears patent and compressible segmentally. Ordering Physician: Keshav Velasquez Referring Physician: JENIFFER HOUSTON Performed By: Aubree Teixeira, PAO, RVT 07/14/17 1316 Date Marcus Gabriel MD CC: Jeniffer Houston DO; Keshav Velasquez MD Date Dictated: 07/14/17 1125 Date Transcribed: 07/14/17 1316 Vest Baster: Signed ALLERGIES ALLERGIES DATE TYPE / CODE NAME / CODE REACTION SEVERITY SOURCE 05/26/2018 Drug codeine/F006 Other Unknown [facility] Allergy/4160 936222([facility] [address](SNOMED M) Repository CT) 05/26/2018 Drug perflutren/F Pain in joints Unknown [facility] Allergy/4160 [id number]([facility] [address](SNOMED NORM) Repository CT) ENCOUNTERS ENCOUNTERS ADMIT/DISCHARGE ACCOUNT NUMBER ADMITTING ENCOUNTER LOCATION SOURCE CLASS 05/26/2018/05/26/20 [id number] Ambulatory BMSBuilding: [place] 18 BMS.[facility] Repository 05/26/2018 [id number] Ambulatory General acute hospital ding:LAB Repository 05/19/2018/05/19/20 [id number] Ambulatory BMSBuilding: [place] 18 BMS.[facility] Repository 05/18/2018/05/18/20 [id number] Emergency [address] ding:ED Repository 04/28/2018/04/28/20 [id number] Ambulatory BMSBuilding: [place] 18 BMS.[facility] Repository 04/24/2018/04/24/20 [id number] Emergency [address] ding:ED Repository 04/19/2018 [id number] Ambulatory General acute hospital ding:PSN Repository 04/04/2018 [id number] Ambulatory Building:[facility] Repository 03/24/2018 [id number] Ambulatory General acute hospital ding:MTLAB Repository 03/21/2018/03/21/20 [id number] [facility] [place] [facility] 03/04/2018/03/04/20 [id number] Ambulatory [address] ding:[facility]SP Repository 03/04/2018 [id number] Ambulatory BMSBuilding: [place] [facility] Repository 03/03/2018 [id number] Ambulatory General acute hospital ding:LAB Repository 03/02/2018 [id number] Ambulatory General acute hospital ding:[facility] Repository 03/02/2018 [id number] Ambulatory BMSBuilding: [facility] Repository 02/16/2018 [id number] Ambulatory [facility] ding:[facility] Repository 02/16/2018 [id number] Ambulatory BMSBuilding: [facility] Repository 02/14/2018/02/15/20 [id number] Ambulatory BMSBuilding: [place] 18 BMS.[facility] Repository 02/12/2018 [id number] Ambulatory BMSBuilding: [place] BMS.[facility] Repository 01/18/2018/01/19/20 [id number] Ambulatory BMSBuilding: [place] 18 [facility] Repository 01/03/2018 [id number] Ambulatory General acute hospital ding:[facility] Repository 01/03/2018 [id number] Ambulatory BMSBuilding: [facility] Repository 01/03/2018 [id number] Ambulatory BMSBuilding: [facility] Repository 12/16/2017 [id number] Ambulatory General acute hospital ding:MTLAB Repository 12/10/2017/12/11/19 [id number] Emergency [address] ding:ED Repository 10/06/2017 [id number] Ambulatory General acute hospital ding:MTLAB Repository 07/21/2017/07/21/19 [id number] Ambulatory BMSBuilding: [place] 18 BMS[facility] Repository 07/16/2017 [id number] Ambulatory [facility] ding:MTLAB Repository 07/15/2017 [id number] Ambulatory BMS [facility] Repository 07/14/2017 [id number] Ambulatory [facility] ding:[facility] Repository PAYERS PAYERS ENCOUNTER GUARANTOR PAYER SUBSCRIBER SOURCE 05/26/2018 KATRINA Moore Primary Insurance:[facility] BELL STOVALLB: [place] [id number] [facility] [id number] [address]Uqq: (504) Number: Repository [phone] () [id number] Date:[id number] [address] [address], [place] [address]SC: CHECK WEBSITE 05/26/2018 Secondary NOT GIVENUNK [place] Insurance:SELF PAY [facility] Number: Effective Repository Date:2018-05-26 05/26/2018 KATRINA Moore Primary Insurance:[facility] Sidhu VIADOB: [place] [id number] [facility] [id number] [place] [address]Tel: (330) Number: Repository [phone] () [id number] Date:8715-91-44YY [address] [address]OGY[place]OT, [place] [address]VT: CHECK WEBSITE 05/26/2018 Secondary NOT GIVENUNK [place] Insurance:SELF PAY [facility] Number: Effective Repository Date:2018-05-26 05/19/2018 KATRINA Moore Primary Insurance:[facility] BELL Sidhu VIADOB: [place] [id number] [facility] [id number] Valley Medical Center [address]Jhq: (330) Number: Repository [phone] () [id number] Date:4834-06-31EU [address] [address]UB, [place] [address]AF: CHECK WEBSITE 05/19/2018 Secondary NOT GIVENUNK [place] Insurance:SELF PAY [facility] Number: Effective Repository Date:2018-05-19 05/18/2018 KATRINA Moore Primary Insurance:[facility] BELL Sidhu VIADOB: [place] [id number] [facility] [id number] Valley Medical Center [address]Adq: (330) Number: Repository [phone] () [id number] Date:2484-10-52AZ [address] [address], [place] [address]TC: CHECK WEBSITE 05/18/2018 Secondary NOT GIVENUNK [place] Insurance:SELF PAY [facility] Number: Effective Repository Date:2018-05-18 04/28/2018 KATRINA Moore Primary Insurance:[facility] BE[facility] Sidhu VIADOB: [place] [id number] [facility] [id number] Valley Medical Center [address]Ovm: (330) Number: Repository [phone] () [id number] Date:7035-92-81TH [address] [address]JMSVDHPUI, [place] [address]XU: CHECK WEBSITE 04/28/2018 Secondary NOT GIVENUNK [place] Insurance:SELF PAY [facility] Number: Effective Repository Date:2018-04-28 04/24/2018 KATRINA Moore Primary Insurance:[facility] Sidhu VIADOB: [place] [id number] [facility] [id number] Valley Medical Center [address]Vwu: (330) Number: Repository [phone] () [id number] Date:4772-35-21SS [address] [address]IAWZWGHLR, [place] [address]HA: CHECK WEBSITE 04/24/2018 Secondary NOT GIVENUNK [place] Insurance:SELF PAY [facility] Number: Effective Repository Date:2018-04-24 04/19/2018 KATRINA Moore Primary Insurance:[facility] Sidhu VIADOB: [place] [id number] [facility] [id number] Valley Medical Center [address]Svr: (330) Number: Repository [phone] () [id number] Date:3408-01-97KN [address] [address]FUFDNKKDI, [place] [address]UR: CHECK WEBSITE 04/19/2018 Secondary NOT GIVENUNK [place] Insurance:SELF PAY [facility] Number: Effective Repository Date:2018-01-19 04/04/2018 KATRINA Moore Primary BELL VIADOB: [facility] VIADOB: Insurance:[place] [id number] [place] W Number: [address] [facility] [id number] Date:3209-52-35Oefb [address]Lfl: (330) Repository [address]Sbc: (330) Name:MANAGED CARE [phone] () [phone] () 03/24/2018 KATRINA Moore Primary Insurance:[facility] MELVINDOB: [place] [id number] [facility] [id number] Valley Medical Center [address]Mux: (330) Number: Repository [phone] () [id number] Date:9370-17-22NU [address] [address]UWNXAHSXY, [place] [address]HB: CHECK WEBSITE 03/24/2018 Secondary NOT GIVENUNK [place] Insurance:SELF PAY [facility] Number: Effective Repository Date:2018-03-24 03/21/2018 KATRINA Moore Primary Insurance:[facility] Sidhu VIADOB: [place] [id number] [facility] [id number] Valley Medical Center [address]Byb: (330) Number: Repository [phone] () [id number] Date:0774-36-28RR [facility] [address]FNLFLJFSO, [place] [address]EC: CHECK WEBSITE 03/21/2018 Secondary NOT GIVENUNK [place] Insurance:SELF PAY [facility] Number: Effective Repository Date:2018-03-21 03/04/2018 KATRINA Moore Primary Insurance:[facility] BE[facility] MELVINDOB: [place] [id number] [facility] [id number] Valley Medical Center [address]Mhl: (330) Number: Repository [phone] () [id number] Date:0204-13-03VW [address] [address]FYMJAAZNI, [place] [address]UO: CHECK WEBSITE 03/04/2018 Secondary NOT GIVENUNK [place] Insurance:SELF PAY [facility] Number: Effective Repository Date:2018-03-03 03/04/2018 KATRINA Moore Primary Insurance:[facility] Sidhu VIADOB: [place] [id number] [facility] [id number] Valley Medical Center [address]Ekt: (330) Number: Repository [phone] () [id number] Date:1692-00-91WP [address] [address]QTPOBESEO, [place] [address]MT: CHECK WEBSITE 03/04/2018 Secondary NOT GIVENUNK [place] Insurance:SELF PAY [facility] Number: Effective Repository Date:2018-03-04 03/03/2018 KATRINA Moore Primary Insurance:[facility] Sidhu VIADOB: [place] [id number] [facility] [id number] Ville [address]Tel: (330) Number: Repository [phone] () [id number] Date:1235-38-11ZC [address] [address]FEZVPYSSV, [place] [address]OG: CHECK WEBSITE 03/03/2018 Secondary NOT GIVENUNK [place] Insurance:SELF PAY [facility] Number: Effective Repository Date:2018-03-03 03/02/2018 KATRINA Moore Primary Insurance:[facility] Sidhu VIADOB: [place] [id number] [facility] [id number] Ville [address]Tel: (330) Number: Repository [phone] () [id number] Date:8371-56-44RT [address] [address]TWOFERQMK, [place] [address]UP: CHECK WEBSITE 03/02/2018 Secondary NOT GIVENUNK [place] Insurance:SELF PAY [facility] Number: Effective Repository Date:2018-02-17 03/02/2018 KATRINA Moore Primary Insurance:[facility] Sidhu VIADOB: [place] [id number] [facility] [id number] Ville [id number]: (330) Number: Repository [phone] () [id number] Date:8901-38-50RJ [address] [address]OOFDIBEUK, [place] [address]IR: CHECK WEBSITE 03/02/2018 Secondary NOT GIVENUNK [place] Insurance:SELF PAY [facility] Number: Effective Repository Date:2018-03-02 02/16/2018 KATRINA Moore Primary Insurance:[facility] Sidhu VIADOB: [place] [id number] [facility] [id number] Valley Medical Center [address]Rjc: (330) Number: Repository [phone] () [id number] Date:4782-45-09WN [address] [address]RUTYEDFME, [place] [address]PC: CHECK WEBSITE 02/16/2018 Secondary NOT GIVENUNK [place] Insurance:SELF PAY [facility] Number: Effective Repository Date:2018-02-15 02/16/2018 KATRINA Moore Primary Insurance:[facility] Sidhu VIADOB: [place] [id number] [facility] [id number] Valley Medical Center [address]Wet: (330) Number: Repository [phone] () [id number] Date:8896-73-51JO [address] [address]MUQQMDQAW, [place] [address]UQ: CHECK WEBSITE 02/16/2018 Secondary NOT GIVENUNK [place] Insurance:SELF PAY [facility] Number: Effective Repository Date:2018-02-16 02/14/2018 KATRNIA Moore Primary Insurance:[facility] Sidhu VIADOB: [place] [id number] [facility] [id number] Valley Medical Center [address]Lkk: (330) Number: Repository [phone] () [id number] Date:8787-76-94LY [address] [address]JKWRLLWSI, [place] [address]LI: CHECK WEBSITE 02/14/2018 Secondary NOT GIVENUNK [place] Insurance:SELF PAY [facility] Number: Effective Repository Date:2018-02-14 02/12/2018 KATRINA Moore Primary Insurance:[facility] BE[facility] MELVINDOB: [place] [id number] [facility] [id number] Valley Medical Center [address]Jzj: (330) Number: Repository [phone] () [id number] Date:2529-78-69ZD [address] [address]ILHJLYYCE, [place] [address]DV: CHECK WEBSITE 02/12/2018 Secondary NOT GIVENUNK [place] Insurance:SELF PAY [facility] Number: Effective Repository Date:2018-02-12 01/18/2018 KATRINA Moore Primary Insurance:[facility] BE[facility] A VIADOB: [place] [id number] [facility] [id number] Valley Medical Center [address]Mld: (330) Number: Repository [phone] () [id number] Date:7648-79-62MK [address] [address]BSAKTLQSS, [place] [address]DY: CHECK WEBSITE 01/18/2018 Secondary NOT GIVENUNK [place] Insurance:SELF PAY [facility] Number: Effective Repository Date:2018-01-11 01/03/2018 KATRINA Moore Primary KATRINA Moore [place] [id number] [facility] Insurance:OBWC VIADOB: [facility] [id number] Ville [id number]: (330) Number: Repository [phone] () [id number] Date:7993-74-55AQ [address]SLMFOQVJ, [place] [address]MK: 01/03/2018 Secondary BELL A VIADOB: [place] Insurance:[facility] [id number] Number: Repository [id number] Date:8187-34-70PR [address] [address]LMQFCEXJP, [place] [address]XN: CHECK WEBSITE 01/03/2018 Tertiary NOT GIVENUNK [place] Insurance:SELF PAY [facility] Number: Effective Repository Date:2017-07-21 01/03/2018 KATRINA Moore Primary KATRINA Moore [place] PHL048 [facility] Insurance:OBWC VIADOB: [facility] [id number] Hospital [address]Ogi: (330) Number: Repository [phone] () [id number] Date:2636-70-04OV [address]VWLWELTT, [place] [address]GX: 01/03/2018 Secondary BELL A VIADOB: [place] Insurance:[facility] [id number] Health [facility] Number: Repository [id number] Date:7464-63-04AR [address] [address]BYVOZNMSX, [place] [address]ZT: CHECK WEBSITE 01/03/2018 Tertiary NOT GIVENUNK [place] Insurance:SELF PAY [facility] Number: Effective Repository Date:2018-01-03 01/03/2018 KATRINA Moore Primary KATRINA Moore [place] ALO[address] [facility] Insurance:OBWC VIADOB: [facility] [id number] Hospital [address]Hfh: (330) Number: Repository [phone] () [id number] Date:4075-37-67ST [address]QQNCZHHI, [place] [address]IV: 01/03/2018 Secondary BELL A VIADOB: [place] Insurance:[facility] [id number] [facility] Number: Repository [id number] Date:6957-01-48VO [address] [address]PSAZZUSQZ, [place] [address]YV: CHECK WEBSITE 01/03/2018 Tertiary NOT GIVENUNK [place] Insurance:SELF PAY [facility] Number: Effective Repository Date:2018-01-03 12/16/2017 KATRINA K Primary Insurance:[facility] BELL A VIADOB: [place] [id number] [facility] [id number] Valley Medical Center [address]Iey: (330) Number: Repository [phone] () [id number] Date:3776-68-98AA [address] [address]IELKKUNWM, [place] [address]MP: CHECK WEBSITE 12/16/2017 Secondary NOT GIVENUNK [place] Insurance:SELF PAY [facility] Number: Effective Repository Date:2017-12-16 12/10/2017 KATRINA K Primary KATRINA Moore [place] [id number] [facility] Insurance:OBWC VIADOB: [facility] [id number] Hospital [address]Psj: (330) Number: Repository [phone] () [id number] Date:9092-03-57FE [address]CZMUJLTW, [place] [address]FD: 12/10/2017 Secondary NOT GIVENUNK [place] Insurance:SELF PAY [facility] Number: Effective Repository Date:2017-12-10 10/06/2017 KATRINA K Primary Insurance:[facility] BELL Sidhu VIADOB: [place] [id number] [facility] [id number] Ville [id number]: (330) Number: Repository [phone] () [id number] Date:1063-20-47NH [address] [address]HCSCXGVJX, [place] [address]HZ: CHECK WEBSITE 10/06/2017 Secondary NOT GIVENUNK [place] Insurance:SELF PAY [facility] Number: Effective Repository Date:2017-10-06 07/21/2017 KATRINA K Primary KATRINA Moore [place] [id number] [facility] Insurance:[facility] VIADOB: [facility] [id number] Hospital [address]Shp: (330) Number: Repository [phone] () [id number] Date:0596-83-85PK [address]DONZWQCB, [place] [address]VM: 07/21/2017 Secondary NOT GIVENUNK [place] Insurance:SELF PAY [facility] Number: Effective Repository Date:2017-05-31 07/16/2017 KATRINA K Primary Insurance:[facility] BE[facility] Sidhu VIADOB: [place] [id number] [facility] [id number] [facility] [address]Nnx: (330) Number: Repository [phone] () [id number] Date:9345-61-95WG [address] [address]KCCLOQNPV, [place] [address]JK: CHECK WEBSITE 07/16/2017 Secondary NOT GIVENUNK [place] Insurance:SELF PAY [facility] Number: Effective Repository Date:2017-07-16 07/15/2017 KATRINA K Primary NOT GIVENUNK [place] [id number] [facility] Insurance:SELF PAY [facility] [address]Ljn: (590) Number: Effective Repository [phone] (HP) Date:2017-07-15 07/14/2017 KATRINA Moore Primary KATRINA Gerardo [id number] Insurance:[id number] VIADOB: [place] PPolicy Number: [id number] Hospital 135[address]Ttg: (614) [id number] Repository [phone] () Date: [place]ESH [place], [place] [address]PA: 07/14/2017 Secondary BELL Sidhu VIADOB: [place] Insurance:[facility] [id number] [facility] Number: Repository [id number] Date:6622-71-85OM [address] [address]AGMEPZPKC, [place] [address]KT: CHECK WEBSITE 07/14/2017 Tertiary NOT GIVENUNK [place] Insurance:SELF PAY [facility] Number: Effective Repository Date:2017-07-14
== END 2018-05-18 18:04 | disposition home or self-care (01) ==
LOC: ED 17:13
PROVIDERS: Emergency Provider Emergency Medicine; Family Provider Family Medicine; PCP Family Medicine
DX: R07.9 Chest pain, unspecified (principal); R06.00 Dyspnea, unspecified; R53.83 Other fatigue; R51 Headache; I42.9 Cardiomyopathy, unspecified; I11.0 Hypertensive heart disease with heart failure; I50.9 Heart failure, unspecified; Z86.711 Personal history of pulmonary embolism; Z86.718 Personal history of other venous thrombosis and embolism; Z79.84 Long term (current) use of oral hypoglycemic drugs; Z79.01 Long term (current) use of anticoagulants; Z79.899 Other long term (current) drug therapy
CPT/HCPCS: 70450; 71045; 80048; 83880; 84484; 85025; 93005; 93971; 99284; A4216

== ENCOUNTER → 2018-05-26 13:41 | Outpatient (CLI) | payer OTHER, SELFPAY ==
[2018-05-26 11:45] VITALS: BMI 38.0
[2018-05-26 15:23] LABS: Anion Gap 9 (5-15); BUN 19 mg/dL (7-18); BUN/Creat Ratio 26.1 RATIO (10-20); Calcium,Total 9.4 mg/dL (8.5-10.1); Chloride 102 mmol/L (98-107); Creatinine, Serum 0.73 mg/dL (0.70-1.30); EST Glomerular Filtration Rate 125 mL/min (>60); Est Glom Filt Rate - Afr Amer 151 mL/min (>60); Glucose 104 mg/dL (74-106); Magnesium 2.3 mg/dL (1.6-2.6); Sodium Level 142 mmol/L (136-145)
== END ==
PROVIDERS: Family Provider Family Medicine; PCP Family Medicine; Referring Provider Internal Medicine Cardiovascular Disease; Visit Provider Internal Medicine Cardiovascular Disease
DX: I42.8 Other cardiomyopathies (principal); I11.0 Hypertensive heart disease with heart failure; I50.30 Unspecified diastolic (congestive) heart failure; I51.89 Other ill-defined heart diseases; R06.09 Other forms of dyspnea; R07.9 Chest pain, unspecified
CPT/HCPCS: 36415; 80048; 83735

== ENCOUNTER → 2018-07-02 09:06 | Outpatient (CLI) | payer OTHER, SELFPAY ==
[2018-05-26 14:02] VITALS: BMI 34.9
[2018-07-02 09:43] LABS: Absolute Lymphocyte Count 1.83 X10^3/ul (0.83-4.51); Absolute Neutrophil Count 3.6 X10^3/uL (2.0-7.7); Basophil# 0.02 X10^3/uL; Basophil% 0.3 % (0-1); Eosinophil# 0.08 X10^3/uL; Eosinophils% 1.3 % (0-5); Hematocrit 40.7 % (40-54); Hemoglobin 13.6 g/dl (13.0-16.5); Lymphocyte # 1.83 X10^3/ul (4.0); Lymphocyte % 30.2 % (19-41); Mean Corp Hgb Conc 33.4 g/gl (32-36); Mean Corpuscular Hgb 29.8 pg (27.0-32.0); Mean Corpuscular Volume 89.1 fL (80-94); Mean Platelet Vol. 9.1 fl (6.2-12.0); Monocyte# 0.54 X10^3/uL; Monocyte% 8.9 % (0-10); Neutrophil # 3.57 X10^3/uL (2.7-7.7); Neutrophil % 59.1 % (47-70); POSITIVE COUNT NO; POSITIVE DIFFERENTIAL NO; POSITIVE MORPHOLOGY NO; Platelet Count 236 K/mm3 (150-450); RBC Distribution Width CV 14.3 % (11.6-14.6); RBC Distribution Width SD 45.6 fl (35.1-43.9); Red Blood Count 4.57 M/mm3 (4.6-6.2); White Blood Count 6.1 K/mm3 (4.4-11.0)
[2018-07-02 10:11] LABS: Hemoglobin A1c 6.4 % (4.2-6.3)
[2018-07-02 10:33] LABS: ALB/GLOB Ratio 1.2 RATIO (0.9-2.4); AST(SGOT) 15 U/L (15-37); Alanine Aminotransfer ALT/SGPT 25 U/L (16-61); Albumin, Serum 3.9 g/dL (3.2-5.0); Alkaline Phosphatase 74 U/L (45-117); Anion Gap 10 (5-15); BUN 16 mg/dL (7-18); BUN/Creat Ratio 20.8 RATIO (10-20); Calcium,Total 8.6 mg/dL (8.5-10.1); Chloride 105 mmol/L (98-107); Creatinine, Serum 0.77 mg/dL (0.70-1.30); EST Glomerular Filtration Rate 118 mL/min (>60); Est Glom Filt Rate - Afr Amer 142 mL/min (>60); Globulin 3.3 g/dL (2.2-4.2); Glucose 120 mg/dL (74-106); Potassium 3.9 mmol/L (3.5-5.1); Protein, Total 7.2 g/dL (6.4-8.2); Sodium Level 141 mmol/L (136-145); Thyroid Stim Hormone (TSH) 1.21 uIU/mL (0.358-3.74)
== END ==
PROVIDERS: Family Provider Family Medicine; PCP Family Medicine; Referring Provider Internal Medicine Endocrinology, Diabetes & Metabolism; Visit Provider Internal Medicine Endocrinology, Diabetes & Metabolism
DX: E05.90 Thyrotoxicosis, unspecified without thyrotoxic crisis or storm (principal); E11.65 Type 2 diabetes mellitus with hyperglycemia
CPT/HCPCS: 36415; 80053; 83036; 84439; 84443; 84481; 85025

== ENCOUNTER → 2018-09-20 11:41 | Outpatient (CLI) | payer OTHER, SELFPAY ==
[2018-05-26 14:02] VITALS: BMI 34.9
[2018-09-20 13:18] LABS: BNP,B-Type NATRIURETIC PEPTIDE 19.3 pg/mL (0-100)
== END ==
PROVIDERS: Family Provider Family Medicine; PCP Family Medicine; Referring Provider Internal Medicine Cardiovascular Disease; Visit Provider Internal Medicine Cardiovascular Disease
DX: I50.30 Unspecified diastolic (congestive) heart failure (principal); I11.9 Hypertensive heart disease without heart failure; I42.8 Other cardiomyopathies
CPT/HCPCS: 36415; 83880

== ENCOUNTER → 2018-09-26 07:06 | Outpatient (CLI) | payer OTHER, SELFPAY ==
[2018-09-20 13:05] VITALS: BMI 37.0
[2018-09-26 08:21] LABS: ALB/GLOB Ratio 1.2 RATIO (0.9-2.4); AST(SGOT) 20 U/L (15-37); Alanine Aminotransfer ALT/SGPT 48 U/L (16-61); Albumin, Serum 4.1 g/dL (3.2-5.0); Alkaline Phosphatase 77 U/L (45-117); Anion Gap 10 (5-15); BUN 20 mg/dL (7-18); BUN/Creat Ratio 23.7 RATIO (10-20); Calcium,Total 8.9 mg/dL (8.5-10.1); Chloride 102 mmol/L (98-107); Cholesterol 197 mg/dL (200); Creatinine, Serum 0.84 mg/dL (0.70-1.30); EST Glomerular Filtration Rate 106 mL/min (>60); Est Glom Filt Rate - Afr Amer 128 mL/min (>60); Free T3 3.7 pg/mL (2.18-3.98); Globulin 3.5 g/dL (2.2-4.2); Glucose 201 mg/dL (74-106); High Density Lipoprotein 59 mg/dL; Protein, Total 7.6 g/dL (6.4-8.2); Sodium Level 137 mmol/L (136-145); T4 Free Direct 1.08 ng/dL (0.76-1.46); Thyroid Stim Hormone (TSH) 0.15 uIU/mL (0.358-3.74); Triglycerides 253 mg/dL; Very Low Density Lipoprotein 51 mg/dL (5-40)
[2018-09-26 08:35] LABS: Hemoglobin A1c 7.1 % (4.2-6.3); Vitamin D,25 Hydroxy 31.3 ng/mL (29.95-100.01)
== END ==
PROVIDERS: Family Provider Family Medicine; PCP Family Medicine; Referring Provider Internal Medicine Cardiovascular Disease; Visit Provider Internal Medicine Cardiovascular Disease
DX: E55.9 Vitamin D deficiency, unspecified (principal); E05.90 Thyrotoxicosis, unspecified without thyrotoxic crisis or storm; E11.65 Type 2 diabetes mellitus with hyperglycemia
CPT/HCPCS: 36415; 80053; 80061; 82306; 83036; 84439; 84443; 84481; 93225; 93226

== ENCOUNTER → 2018-11-16 | Outpatient (CLI) | payer OTHER, SELFPAY ==
[2018-09-20 13:05] VITALS: BMI 37.0
[2018-11-16 12:53] LABS: Absolute Lymphocyte Count 1.86 X10^3/ul (0.83-4.51); Absolute Neutrophil Count 2.5 X10^3/uL (2.0-7.7); Basophil# 0.01 X10^3/uL; Basophil% 0.2 % (0-1); Eosinophil# 0.08 X10^3/uL; Eosinophils% 1.6 % (0-5); Hematocrit 41.2 % (40-54); Hemoglobin 13.7 g/dl (13.0-16.5); Lymphocyte # 1.86 X10^3/ul (4.0); Lymphocyte % 37.4 % (19-41); Mean Corp Hgb Conc 33.3 g/gl (32-36); Mean Corpuscular Volume 90.2 fL (80-94); Mean Platelet Vol. 9.7 fl (6.2-12.0); Monocyte# 0.52 X10^3/uL; Monocyte% 10.5 % (0-10); Neutrophil # 2.49 X10^3/uL (2.7-7.7); Neutrophil % 50.1 % (47-70); Platelet Count 252 K/mm3 (150-450); RBC Distribution Width SD 45.7 fl (35.1-43.9); Red Blood Count 4.57 M/mm3 (4.6-6.2)
[2018-11-16 12:55] LABS: POSITIVE COUNT NO; POSITIVE DIFFERENTIAL NO; POSITIVE MORPHOLOGY NO
[2018-11-16 13:20] LABS: BUN 15 mg/dL (7-18); Creatinine, Serum 0.46 mg/dL (0.70-1.30); Glucose 126 mg/dL (74-106)
[2018-11-16 13:21] LABS: AST(SGOT) 21 U/L (15-37); Alanine Aminotransfer ALT/SGPT 62 U/L (16-61); Albumin, Serum 3.9 g/dL (3.2-5.0); Alkaline Phosphatase 76 U/L (45-117); Amylase 25 U/L (25-115); Anion Gap 9 (5-15); BUN/Creat Ratio 32.9 RATIO (10-20); Calcium,Total 9.5 mg/dL (8.5-10.1); Chloride 103 mmol/L (98-107); EST Glomerular Filtration Rate 214 mL/min (>60); Est Glom Filt Rate - Afr Amer 259 mL/min (>60); Globulin 3.5 g/dL (2.2-4.2); Lipase 162 U/L (73-393); Protein, Total 7.4 g/dL (6.4-8.2); Sodium Level 139 mmol/L (136-145)
== END | disposition home or self-care (01) ==
LOC: MTLAB 09:54
PROVIDERS: Family Provider Family Medicine; PCP Family Medicine; Referring Provider Family Medicine; Visit Provider Family Medicine
DX: R10.9 Unspecified abdominal pain (principal); I42.8 Other cardiomyopathies
CPT/HCPCS: 36415; 80048; 80076; 82150; 83690; 85025

== ENCOUNTER → 2018-11-25 | Outpatient (CLI) | payer OTHER, SELFPAY ==
[2018-09-20 13:05] VITALS: BMI 37.0
--- NOTE | 2018-11-25 17:39 | CT_ITS ---
HISTORY: Nausea vomiting and diarrhea, stomach pain COMPARISON: 08/13/2016 TECHNIQUE: Helical CT axial images from the lung bases to the pubic symphysis with 100 ml of Isovue 300 intravenous contrast. Multiplanar reconstruction. Oral contrast was administered. A radiation dose optimization technique was used for this scan. # of images incl. paperwork: [phone] FINDINGS: LUNG BASES: No basilar consolidation or effusions. LIVER: Hepatomegaly. Normal attenuation. No focal masses. Subcentimeter periportal lymph nodes remain unchanged. HEPATOBILIARY: Contracted gallbladder. No intra- or extrahepatic ductal dilatation. SPLEEN: Mild splenomegaly measuring up to 14.2 cm. PANCREAS: Normal size and contour. No focal mass. ADRENAL GLANDS: Normal size. No adrenal masses. KIDNEYS: No obstructing calculi or hydronephrosis bilaterally. No nephrolithiasis. No focal solid renal mass. No significant cysts are present. BOWEL AND MESENTERY: Mild gastric distention with extensive food and fluid residua. There is heterogeneous contrast opacification of the stomach. No contrast opacification of the remainder of the gastrointestinal tract was achieved. No small or large bowel dilatation. No focal bowel wall thickening. No colonic diverticulosis. Normal appendix. No abnormal mesenteric lymphadenopathy. No free fluid or pneumoperitoneum. RETROPERITONEUM:Normal caliber abdominal aorta without aneurysm. No abnormal retroperitoneal lymphadenopathy. PELVIS:Urinary bladder is unremarkable.Normal size prostate gland. ABDOMINAL WALL: The abdominal wall is intact. BONES: No suspicious osseous lytic or blastic lesions seen. CT/Abdomen/Pelvis WITH Contrast IMPRESSION: 1. No acute intra-abdominal or pelvic disease. 2. Mild gastric distention with food and fluid residua. Correlate clinically. Hyperdense material most likely representing partial ingestion of oral contrast or hyperdense liquid. 3. Hepatosplenomegaly, unchanged. Individualized dose optimization techniques were used for this CT. at 0348 Reported and signed by: Morteza Kat MD Electronically Signed: Morteza Kat MD at 3:47 EDT Tel , Service support ,
== END | disposition home or self-care (01) ==
LOC: CT 17:38
PROVIDERS: Family Provider Family Medicine; PCP Family Medicine; Referring Provider Family Medicine; Visit Provider Family Medicine
DX: R10.9 Unspecified abdominal pain (principal); D68.59 Other primary thrombophilia; I42.8 Other cardiomyopathies
CPT/HCPCS: 74177; Q9967

== ENCOUNTER → 2018-12-16 | Outpatient (CLI) | payer OTHER, SELFPAY ==
[2018-12-01 09:57] VITALS: BMI 35.8
--- NOTE | 2018-12-16 14:57 | ECHOD_ITS ---
Left Ventricle Normal LV size. Mild concentric left ventricular hypertrophy. The estimated ejection fraction is 45 %. There is mild global hypokinesis of the left ventricle. Right Ventricle Normal RV size. Mild global right ventricular systolic dysfunction. Atria Normal left atrium. Normal right atrium. Mitral Valve Normal mitral valve. Tricuspid Valve Normal tricuspid valve. Aortic Valve Normal aortic valve. Trisinus/trileaflet aortic valve. Pulmonic Valve Normal pulmonic valve. Great Vessels Normal aortic root. The pulmonary artery is normal size. Normal inferior vena cava. Pericardium/Pleural No pericardial effusion. MMode/2D Measurements & Calculations LVIDd: 6.1 cm IVSd: 1.4 cm Ao root diam: 3.4 cm LVIDs: 4.7 cm LVPWd: 1.2 cm RVDd: 4.4 cm FS: 23.7 % LAV(MOD-bp): 62.3 ml LA A4 area: 18.2 cm2 RA A4 area: 15.7 cm2 LAV(MOD-bp) Indexed: 24.2 ml/m2 LAV(MOD-sp2): 69.1 ml LAV(MOD-sp4): 50.0 ml Doppler Measurements & Calculations MV E max severino: 48.0 cm/sec Lat Peak E' Severino: 13.5 cm/sec Med Peak E' Severino: 5.5 cm/sec MV A max severino: 77.9 cm/sec E/E' lat: 3.6 E/E' med: 8.8 MV E/A: 0.62 Ao V2 max: 121.9 cm/sec LV V1 max: 90.8 cm/sec PA V2 max: 105.9 cm/sec Ao max P.9 mmHg LV V1 max P.3 mmHg Ao V2 mean: 91.6 cm/sec Ao mean P.6 mmHg Ao V2 VTI: 22.3 cm TR max severino: 250.8 cm/sec TR max P.2 mmHg Interpretation Summary Normal LV size. Mild concentric left ventricular hypertrophy. The estimated ejection fraction is 45 %. There is mild global hypokinesis of the left ventricle. Compared to previous its mildly improved Ordering Physician: Murray Hawkins Referring Physician: Murray Hawkins
== END | disposition home or self-care (01) ==
LOC: CVS 14:52
PROVIDERS: Family Provider Family Medicine; PCP Family Medicine; Referring Provider Internal Medicine Cardiovascular Disease; Visit Provider Internal Medicine Cardiovascular Disease
DX: I51.89 Other ill-defined heart diseases (principal)
CPT/HCPCS: 93306

== ENCOUNTER → 2018-12-21 | Outpatient (CLI) | payer OTHER, SELFPAY ==
[2018-12-01 09:57] VITALS: BMI 35.8
[2018-12-21 10:16] LABS: Hemoglobin A1c 6.6 % (4.2-6.3)
[2018-12-21 10:19] LABS: ALB/GLOB Ratio 1.2 RATIO (0.9-2.4); AST(SGOT) 24 U/L (15-37); Alanine Aminotransfer ALT/SGPT 68 U/L (16-61); Alkaline Phosphatase 71 U/L (45-117); Anion Gap 12 (5-15); BUN 19 mg/dL (7-18); BUN/Creat Ratio 26.4 RATIO (10-20); Chloride 103 mmol/L (98-107); Creatinine, Serum 0.72 mg/dL (0.70-1.30); EST Glomerular Filtration Rate 127 mL/min (>60); Est Glom Filt Rate - Afr Amer 153 mL/min (>60); Free T3 2.9 pg/mL (2.18-3.98); Globulin 3.4 g/dL (2.2-4.2); Glucose 160 mg/dL (74-106); Potassium 4.4 mmol/L (3.5-5.1); Protein, Total 7.4 g/dL (6.4-8.2); Sodium Level 140 mmol/L (136-145); T4 Free Direct 0.92 ng/dL (0.76-1.46); Thyroid Stim Hormone (TSH) 0.46 uIU/mL (0.358-3.74)
== END | disposition home or self-care (01) ==
LOC: MTLAB 09:02
PROVIDERS: Family Provider Family Medicine; PCP Family Medicine; Referring Provider Internal Medicine Endocrinology, Diabetes & Metabolism; Visit Provider Internal Medicine Endocrinology, Diabetes & Metabolism
DX: E05.90 Thyrotoxicosis, unspecified without thyrotoxic crisis or storm (principal); E11.65 Type 2 diabetes mellitus with hyperglycemia
CPT/HCPCS: 36415; 80053; 83036; 84439; 84443; 84481

== ENCOUNTER → 2019-01-17 | Outpatient (CLI) | payer OTHER, SELFPAY ==
[2018-12-01 09:57] VITALS: BMI 35.8
[2019-01-17 11:42] LABS: Anion Gap 9 (5-15); BUN 19 mg/dL (7-18); Calcium,Total 8.8 mg/dL (8.5-10.1); Chloride 105 mmol/L (98-107); Creatinine, Serum 0.73 mg/dL (0.70-1.30); EST Glomerular Filtration Rate 124 mL/min (>60); Est Glom Filt Rate - Afr Amer 150 mL/min (>60); Glucose 164 mg/dL (74-106); Potassium 4.3 mmol/L (3.5-5.1); Sodium Level 139 mmol/L (136-145)
[2019-01-17 12:09] LABS: BNP,B-Type NATRIURETIC PEPTIDE 34.8 pg/mL (0-100)
== END | disposition home or self-care (01) ==
PROVIDERS: Family Provider Family Medicine; PCP Family Medicine
DX: I50.9 Heart failure, unspecified (principal)
CPT/HCPCS: 36415; 80048; 83880

== ENCOUNTER → 2019-02-10 | Outpatient (CLI) | payer OTHER, SELFPAY ==
[2018-12-01 09:57] VITALS: BMI 35.8
--- NOTE | 2019-02-10 08:46 | NM_ITS ---
CLINICAL: 43-year-old diabetic male with reported history of abdominal pain and nausea. SEMI-SOLID PHASE 99m Tc SULFUR COLLOID GASTRIC EMPTYING STUDY COMPARISON: None available FINDINGS: The patient was administered 1.1 mCi of 99m Tc sulfur colloid mixed with oatmeal and consumed per os. Image acquisitions in the anterior-posterior projections for a total of 60 minutes. There is prompt visualization of the stomach. There is no gastroesophageal reflux identified. The T1/2 linear fit was calculated to be 30.29 minutes, (Normal: 12-56 minutes). NM/Gastric Emptying Study IMPRESSION: 1. NORMAL 99m Tc sulfur colloid semi-solid phase (oatmeal) gastric emptying imaging examination. A. There is normal and preserved semi-solid phase gastric emptying compared to normal controls. (Ambrose et al, J Nucl Med Tech 38: 186, 2010). Electronically Signed: Troy Moreno DO at 7:47 EDT Tel , Service support ,
== END | disposition home or self-care (01) ==
LOC: NM 08:45
PROVIDERS: Family Provider Family Medicine; PCP Family Medicine; Referring Provider Internal Medicine Endocrinology, Diabetes & Metabolism; Visit Provider Internal Medicine Endocrinology, Diabetes & Metabolism
DX: E11.65 Type 2 diabetes mellitus with hyperglycemia (principal)
CPT/HCPCS: 78264; A9541

== ENCOUNTER → 2019-06-23 15:43 | Outpatient (CLI) | payer OTHER, SELFPAY ==
[2018-12-01 09:57] VITALS: BMI 35.8
[2019-06-23 17:09] LABS: Absolute Lymphocyte Count 2.05 X10^3/uL (0.83-4.51); Absolute Neutrophil Count 3.8 X10^3/uL (2.0-7.7); Basophil# 0.02 X10^3/uL; Basophil% 0.3 % (0-1); Eosinophil# 0.17 X10^3/uL; Eosinophils% 2.6 % (0-5); Hematocrit 44.1 % (40-54); Hemoglobin 14.5 g/dL (13.0-16.5); Lymphocyte # 2.05 X10^3/ul (4.0); Lymphocyte % 31.1 % (19-41); Mean Corp Hgb Conc 32.9 g/dL (32-36); Mean Corpuscular Hgb 31.1 pg (27.0-32.0); Mean Corpuscular Volume 94.6 fL (80-94); Mean Platelet Vol. 9.2 fl (6.2-12.0); Monocyte# 0.53 X10^3/uL; NRBC Flagged by Analyzer 0 % (0-5); Neutrophil # 3.82 X10^3/uL (2.7-7.7); Neutrophil % 57.8 % (47-70); Platelet Count 229 K/mm3 (150-450); RBC Distribution Width SD 47.8 fl (35.1-43.9); Red Blood Count 4.66 M/mm3 (4.6-6.2); White Blood Count 6.6 K/mm3 (4.4-11.0)
[2019-06-23 17:30] LABS: Anion Gap 3 (5-15); BUN 17 mg/dL (7-18); BUN/Creat Ratio 24.3 RATIO (10-20); Calcium,Total 9.1 mg/dL (8.5-10.1); Chloride 103 mmol/L (98-107); EST Glomerular Filtration Rate 130 mL/min (>60); Est Glom Filt Rate - Afr Amer 158 mL/min (>60); Glucose 166 mg/dL (74-106); Sodium Level 137 mmol/L (136-145)
== END ==
PROVIDERS: Family Provider Family Medicine; PCP Family Medicine
DX: I50.22 Chronic systolic (congestive) heart failure (principal); I42.0 Dilated cardiomyopathy
CPT/HCPCS: 36415; 80048; 85025

== ENCOUNTER → 2019-08-09 08:36 | Outpatient (CLI) | payer OTHER, SELFPAY ==
[2018-12-01 09:57] VITALS: BMI 35.8
[2019-08-09 10:39] LABS: Hemoglobin A1c 6.6 % (4.2-6.3)
[2019-08-09 10:54] LABS: ALB/GLOB Ratio 1.1 RATIO (0.9-2.4); AST(SGOT) 15 U/L (15-37); Alanine Aminotransfer ALT/SGPT 37 U/L (16-61); Albumin, Serum 4.1 g/dL (3.2-5.0); Alkaline Phosphatase 77 U/L (45-117); Anion Gap 8 (5-15); BUN 21 mg/dL (7-18); BUN/Creat Ratio 24.4 RATIO (10-20); Calcium,Total 9.3 mg/dL (8.5-10.1); Chloride 100 mmol/L (98-107); Creatinine, Serum 0.86 mg/dL (0.70-1.30); EST Glomerular Filtration Rate 103 mL/min (>60); Est Glom Filt Rate - Afr Amer 125 mL/min (>60); Globulin 3.7 g/dL (2.2-4.2); Glucose 180 mg/dL (74-106); Protein, Total 7.8 g/dL (6.4-8.2); Sodium Level 137 mmol/L (136-145); T4 Free Direct 0.94 ng/dL (0.76-1.46); Thyroid Stim Hormone (TSH) 0.99 uIU/mL (0.358-3.74)
== END ==
PROVIDERS: PCP Family Medicine; Referring Provider Internal Medicine Endocrinology, Diabetes & Metabolism; Visit Provider Internal Medicine Endocrinology, Diabetes & Metabolism
DX: E11.65 Type 2 diabetes mellitus with hyperglycemia (principal); E05.90 Thyrotoxicosis, unspecified without thyrotoxic crisis or storm
CPT/HCPCS: 36415; 80053; 83036; 84439; 84443; 84481

== ENCOUNTER → 2019-11-07 11:01 | Outpatient (CLI) | payer OTHER, SELFPAY ==
[2018-12-01 09:57] VITALS: BMI 35.8
[2019-11-07 12:57] LABS: Hemoglobin A1c 6.4 % (3.8-5.6)
[2019-11-07 13:13] LABS: ALB/GLOB Ratio 1.2 RATIO (0.9-2.4); AST(SGOT) 12 U/L (15-37); Alanine Aminotransfer ALT/SGPT 34 U/L (16-61); Alkaline Phosphatase 72 U/L (45-117); Anion Gap 6 (5-15); BUN 21 mg/dL (7-18); BUN/Creat Ratio 31.9 RATIO (10-20); Calcium,Total 9.1 mg/dL (8.5-10.1); Chloride 106 mmol/L (98-107); Cholesterol 241 mg/dL (200); Creatinine, Serum 0.66 mg/dL (0.70-1.30); EST Glomerular Filtration Rate 140 mL/min (>60); Est Glom Filt Rate - Afr Amer 169 mL/min (>60); Free T3 2.9 pg/mL (2.18-3.98); Globulin 3.4 g/dL (2.2-4.2); Glucose 124 mg/dL (74-106); High Density Lipoprotein 44 mg/dL; Potassium 4.4 mmol/L (3.5-5.1); Protein, Total 7.4 g/dL (6.4-8.2); Sodium Level 140 mmol/L (136-145); T4 Free Direct 0.88 ng/dL (0.76-1.46); Triglycerides 344 mg/dL; Very Low Density Lipoprotein 69 mg/dL (5-40)
[2019-11-07 15:09] LABS: Microalbumin,Random Urine 15.4 mg/L (NO RANGE EST.); Microalbumin:Creatinine Ratio 14.1 mg/g CRE (<30 mg/g CRE)
== END ==
PROVIDERS: PCP Family Medicine; Referring Provider Internal Medicine Endocrinology, Diabetes & Metabolism; Visit Provider Internal Medicine Endocrinology, Diabetes & Metabolism
DX: I42.9 Cardiomyopathy, unspecified (principal)
CPT/HCPCS: 36415; 80053; 80061; 82043; 82570; 83036; 84439; 84443; 84481

== ENCOUNTER → 2020-04-16 08:45 | Outpatient (CLI) | payer OTHER, SELFPAY ==
[2018-12-01 09:57] VITALS: BMI 35.8
[2020-03-10 09:14] VITALS: BMI 35.8
[2020-04-16 10:24] LABS: Hemoglobin A1c 8.1 % (3.8-5.6)
[2020-04-16 10:25] LABS: Free T3 2.7 pg/mL (2.18-3.98); Rubella IgG 334.8 IU/mL; T4 Free Direct 0.98 ng/dL (0.76-1.46); Thyroid Stim Hormone (TSH) 1.27 uIU/mL (0.358-3.74)
[2020-04-18 08:47] LABS: Mumps Antibody,IgG 24.2 AU/mL (Immune >10.9); Rubeola IgG Ab > 300.0 AU/mL (Immune >16.4)
== END ==
PROVIDERS: PCP Family Medicine; Referring Provider Family Medicine; Visit Provider Family Medicine
DX: E11.9 Type 2 diabetes mellitus without complications (principal); E05.90 Thyrotoxicosis, unspecified without thyrotoxic crisis or storm; Z23 Encounter for immunization; Z20.9 Contact with and (suspected) exposure to unspecified communicable disease
CPT/HCPCS: 36415; 83036; 84439; 84443; 84481; 86735; 86762; 86765

== ENCOUNTER → 2020-07-10 08:54 | Outpatient (CLI) | payer OTHER, SELFPAY ==
[2020-03-10 09:14] VITALS: BMI 35.8
[2020-07-10 10:28] LABS: Hemoglobin A1c 7.2 % (3.8-5.6)
[2020-07-10 10:45] LABS: Cholesterol 223 mg/dL (200); High Density Lipoprotein 42 mg/dL; Triglycerides 410 mg/dL
== END ==
PROVIDERS: PCP Family Medicine; Referring Provider Family Medicine; Visit Provider Family Medicine
DX: E11.9 Type 2 diabetes mellitus without complications (principal); E78.5 Hyperlipidemia, unspecified
CPT/HCPCS: 36415; 80061; 83036

== ENCOUNTER → 2021-02-18 08:46 | Outpatient (CLI) | payer OTHER, SELFPAY ==
[2020-03-10 09:14] VITALS: BMI 35.8
[2021-02-18 10:09] LABS: Absolute Lymphocyte Count 2.01 X10^3/uL (0.83-4.51); Absolute Neutrophil Count 3.4 X10^3/uL (2.0-7.7); Basophil# 0.02 X10^3/uL; Basophil% 0.3 % (0-1); Eosinophil# 0.31 X10^3/uL; Eosinophils% 4.9 % (0-5); Hematocrit 44.3 % (40-54); Hemoglobin 15.3 g/dL (13.0-16.5); Lymphocyte # 2.01 X10^3/ul (0.83-4.51); Lymphocyte % 31.6 % (19-41); Mean Corp Hgb Conc 34.5 g/dL (32-36); Mean Corpuscular Hgb 30.8 pg (27.0-32.0); Mean Corpuscular Volume 89.3 fL (80-94); Mean Platelet Vol. 9.5 fl (6.2-12.0); Monocyte% 9.4 % (0-10); NRBC Flagged by Analyzer 0 % (0-5); Neutrophil % 53.3 % (47-70); Platelet Count 235 K/mm3 (150-450); RBC Distribution Width CV 13.2 % (11.6-14.6); RBC Distribution Width SD 43.5 fl (35.1-43.9); Red Blood Count 4.96 M/mm3 (4.6-6.2); White Blood Count 6.4 K/mm3 (4.4-11.0)
[2021-02-18 10:53] LABS: ALB/GLOB Ratio 1.1 RATIO (0.9-2.4); AST(SGOT) 14 U/L (15-37); Alanine Aminotransfer ALT/SGPT 31 U/L (16-61); Albumin, Serum 4.1 g/dL (3.2-5.0); Alkaline Phosphatase 87 U/L (45-117); Anion Gap 8 (5-15); BUN 21 mg/dL (7-18); BUN/Creat Ratio 30.3 RATIO (10-20); Calcium,Total 8.9 mg/dL (8.5-10.1); Chloride 101 mmol/L (98-107); Cholesterol 200 mg/dL (200); Creatinine, Serum 0.69 mg/dL (0.70-1.30); EST Glomerular Filtration Rate 131 mL/min (>60); Est Glom Filt Rate - Afr Amer 159 mL/min (>60); Free T3 3.2 pg/mL (2.18-3.98); Globulin 3.6 g/dL (2.2-4.2); Glucose 178 mg/dL (74-106); High Density Lipoprotein 38 mg/dL; Potassium 3.7 mmol/L (3.5-5.1); Protein, Total 7.7 g/dL (6.4-8.2); Sodium Level 136 mmol/L (136-145); T4 Free Direct 1.08 ng/dL (0.76-1.46); Thyroid Stim Hormone (TSH) 0.76 uIU/mL (0.358-3.74); Triglycerides 383 mg/dL; Very Low Density Lipoprotein 77 mg/dL (5-40)
[2021-02-18 10:55] LABS: Microalbumin,Random Urine < 5.0 mg/L (NO RANGE EST.)
== END ==
PROVIDERS: PCP Family Medicine; Referring Provider Family Medicine; Visit Provider Family Medicine
DX: E11.9 Type 2 diabetes mellitus without complications (principal); I10 Essential (primary) hypertension; E78.1 Pure hyperglyceridemia; E05.90 Thyrotoxicosis, unspecified without thyrotoxic crisis or storm; Z51.81 Encounter for therapeutic drug level monitoring
CPT/HCPCS: 36415; 80053; 80061; 82043; 82570; 83036; 84439; 84443; 84481; 85025

== ENCOUNTER → 2021-03-10 13:32 | Outpatient (CLI) | payer OTHER, SELFPAY ==
--- NOTE | 2021-03-10 13:37 | VDLE_ITS ---
Reason For Study: DVT LLE RIGHT LEFT CFV is compressible, spontaneous, phasic, GSV is normal. competent and demonstrates normal CFV is compressible, spontaneous, phasic, augmentation. competent, and demonstrates normal Procedure augmentation. This is a venous duplex using B-mode, color FV is compressible, spontaneous, phasic, flow and spectral Doppler. competent and demonstrates normal Exam performed in department. augmentation. A preliminary report was called and/or faxed POP V is compressible, spontaneous, phasic, to Ioana. competent and demonstrates normal augmentation. T/P Trunk is compressible. PTV is compressible. LT PerV is compressible. VL/Venous Duplex US, Unilateral Interpretation Summary Deep veins of the left lower extremity are patent and compressible segmentally. There is no evidence of left lower extremity deep vein thrombosis. Valvular competence appears intac t within the proximal deep venous system on the left . The left great saphenous vein appears patent a nd compressible segmentally. Ordering Physician: Victor Hugo Sharp Referring Physician: Jose L Houston Performed By: Ernestina Santana RVT
== END ==
PROVIDERS: PCP Family Medicine; Referring Provider Emergency Medicine; Visit Provider Emergency Medicine
DX: I82.402 Acute embolism and thrombosis of unspecified deep veins of left lower extremity (principal)
CPT/HCPCS: 93971

== ENCOUNTER 2021-08-01 09:41 | Emergency (ER) | payer OTHER, SELFPAY ==
[2021-08-01 09:42] VITALS: BP 143/90; PULSE 77; RESP 17; TEMP 35.6; O2SAT 95; BMI 36.5
--- NOTE | 2021-08-01 09:49 | ED.RN ---
Patient states that he was told to go to [facility] after ed visit. Denies need for nurse to have drug screen done here in ED.
--- NOTE | 2021-08-01 09:54 | RAD_ITS ---
STUDY: X-RAY - LEFT SHOULDER REASON FOR EXAM: Male, 45 years old. Left shoulder pain following a fall. TECHNIQUE: 4 view(s) of the shoulder. COMPARISON: None. FINDINGS: Normal glenohumeral articulation. Normal acromioclavicular joint. Normal acromion. I suspect a nondisplaced fracture of the lateral aspect of the left scapula just deep to the glenoid. Normal humeral head and visualized proximal humerus. The soft tissue structures are unremarkable. Normal visualized pulmonary apex. RAD/Shoulder min 2 Views IMPRESSION: I suspect a nondisplaced fracture of the lateral aspect of the scapula just deep to the glenoid fossa. Electronically Signed: Lyle Marroquin MD at 10:42 EST ,
--- NOTE | 2021-08-01 09:54 | CT_ITS ---
STUDY: CT CERVICAL SPINE WITHOUT CONTRAST REASON FOR EXAM: Male, 45 years old. Neck injury due to a fall. RADIATION DOSAGE (If Supplied By Facility): CTDIvol = ( 25.70 ) mGy, DLP = ( 588.95 ) mGycm TECHNIQUE: High resolution transaxial imaging was performed without contrast material. Sagittal and coronal images were reconstructed. Individualized dose optimization techniques were used for this CT. COMPARISON: None FINDINGS: Normal craniovertebral junction. Normal anterior atlantoaxial articulation. Normal odontoid process. There is straightening of the normal cervical lordosis. Normal vertebral bodies and posterior osseous elements. C2-3: Normal endplates. Normal disc height and morphology. Normal central canal and intervertebral neuroforamina. C3-4: Normal endplates. Normal disc height and morphology. Normal central canal and intervertebral neuroforamina. C4-5: Normal endplates. Normal disc height and morphology. Normal central canal and intervertebral neuroforamina. C5-6: Normal endplates. Normal disc height and morphology. Normal central canal and intervertebral neuroforamina. C6-7: Normal endplates. Normal disc height and morphology. Normal central canal and intervertebral neuroforamina. C7-T1: Normal endplates. Normal disc height and morphology. Normal central canal and intervertebral neuroforamina. Normal visualized soft tissue structures. CT/Spine Cervical without Contras IMPRESSION: Normal unenhanced CT examination of the cervical spine. Electronically Signed: Lyle Marroquin MD at 10:39 EST ,
--- NOTE | 2021-08-01 09:56 | EDS_ITS ---
HPI History of Present Illness Chief Complaint: Fall Narrative Narrative: 45-year-old male with history of DVT/PE on Lovenox presenting after mechanical fall at work. Patient states that he was walking and fell sideways falling on his elbow initially and then hitting his shoulder. He states that he believes he slipped. He is unsure if he hit his head. He denies dizziness, lightheadedness, blurry vision, confusion, nausea, vomiting. He denies neck pain. Patient does complain of pain in the left shoulder and points to his deltoid. Patient also complains of pain at the olecranon on the left. Patient denies other injury. [facility] Medical History (Updated 08/01/21 @ 14:[address] Henrry Mathias, DO) Combined systolic and diastolic cardiac dysfunction Contusion of left knee, initial encounter Diastolic dysfunction with heart failure DVT of leg (deep venous thrombosis) Essential (primary) hypertension Idiopathic cardiomyopathy Idiopathic cardiomyopathy Medial meniscus tear Other internal derangements of left knee Other tear of lateral meniscus, current injury, left knee, subsequent encounter Other tear of medial meniscus, current injury, left knee, subsequent encounter Pain of left knee after injury Pulmonary embolism (07/2016) Thyroid nodule Type 2 diabetes mellitus Home Medications enoxaparin 135 mg SC Q12@0600,1800 12/10/17 [History Last Taken 03/03/18] methimazole 7.5 mg PO DAILY 12/10/17 [History Last Taken 03/04/18] cholecalciferol (vitamin D3) 5,000 unit PO DAILY 04/24/18 [History Last Taken Unknown] multivitamin 1 ea PO DAILY 04/24/18 [History Last Taken Unknown] carvedilol 12.5 mg tablet 12.5 mg PO BID #180 tab 04/28/18 [Rx Last Taken Unknown] furosemide 40 mg tablet 40 mg PO BID #180 tab 08/09/18 [Rx Last Taken Unknown] metformin 1,000 mg tablet 1,000 mg PO BID tab 08/09/18 [History Last Taken Unknown] spironolactone 25 mg tablet 25 mg PO DAILY #90 tab 09/08/18 [Rx Last Taken Unknown] citalopram 20 mg tablet 20 mg PO DAILY #60 tab 12/01/18 [Rx Last Taken Unknown] dulaglutide 1.5 mg/0.5 mL subcutaneous pen injector 1.5 mg SC QWEEK 12/01/18 [History Last Taken Unknown] sacubitril 24 mg-valsartan 26 mg tablet 1 tab PO BID #60 tab 12/01/18 [Rx Last Taken Unknown] prednisone 20 mg tablet 20 mg PO DAILY #18 tab MDD 60mg 03/10/20 [Rx Last Taken Unknown] triamcinolone acetonide 0.1 % topical cream 1 applic TOPICAL TID #30 g 03/10/20 [Rx Last Taken Unknown] hydrocodone-acetaminophen 1 tab PO Q6H PRN 3 Days #10 tab 08/01/21 [Rx Last Taken Unknown] Allergy/AdvReac Type Severity Reaction Status Date / Time codeine Allergy Other Verified 08/01/21 09:42 perflutren [From Definity] AdvReac Pain in Verified 08/01/21 09:42 joints Family History Father Hypertension Surgical History History of left heart catheterization (03/04/18) Partially torn MCL torn cartilage behind knee Torn meniscus Torn PCL Social History Smoking Status: Former smoker how long ago did patient quit smokin, 2pks/day second hand exposure: Yes alcohol intake: current alcohol intake frequency: a few times a month substance use type: does not use ROS ROS ED Constitutional Constitutional ED: Denies chills or fever(s) Eyes Eyes: Denies blurry vision or diplopia ENT ENT ED: Denies rhinorrhea or sore throat Cardiovascular Cardiovascular: Denies chest pain or palpitations Respiratory/Chest Respiratory/Chest: Denies cough or dyspnea Gastrointestinal Gastrointestinal: Denies abdominal pain, nausea or vomiting Genitourinary Genitourinary ED: Denies dysuria, hematuria or urinary frequency Musculoskeletal Musculoskeletal: Reports other Details: Left shoulder and left elbow pain ; Denies neck pain Integumentary Denies Abrasions or rash Neurologic Neurologic: Denies headache(s), paresthesias or weakness EXAM Physical Exam Const Vital Signs: 08/01/21 09:42 Temperature 96.0 F L Temperature Source Temporal Pulse Rate 77 Respiratory Rate 17 Blood Pressure 143/90 H Blood Pressure Mean 107 Pulse Ox 95 Oxygen Delivery Method Room Air Positive well nourished General Appearance ED: NAD HEENT Reports moist mucous membranes normocephalic and atraumatic Eyes PERRL and EOMs intact bilaterally Neck full ROM and supple General: Negative for tenderness Chest Wall inspection of chest normal and palpation of chest normal Resp normal respiratory effort and clear to auscultation bilaterally Cardio regular rate and regular rhythm Back/Spine Cervical Spine: Negative for cervical spine tenderness Thoracic Spine / Upper Back: Negative for thoracic spinal tenderness Lumbar Spine / Lower Back: Negative for lumbar spinal tenderness Extremity Extremity Narrative: Tenderness to palpation of the lateral proximal forearm. No obvious deformity. There is no pain throughout palpation of the rest of the humerus. Patient does have pain at the olecranon process. Patient is able to flex and extend his shoulder. Patient cannot abduct his shoulder to 90 degrees while examining him. No limitation in abduction. Patient was able however to take off his shirt with his arms over his head. On examination his shoulders appear symmetric. No clavicular tenderness. Neuro oriented x3, CN's II-XII intact bilaterally, no focal motor deficits and no sensory deficits noted Sensorium / Orientation: alert Motor Exam: strength 5/5 throughout Psych mental status grossly normal Skin Lesions: no lesions Rashes: no rashes MDM MDM MDM Narrative Medical decision making narrative: Patient presents with left shoulder and left elbow pain. He states he had a mechanical fall in which he slipped falling to the left. He struck his elbow first and then his shoulder. He cannot tell me if he hit his head or not, and states he immediately focused on his shoulder and elbow as far as pain. He states he does not want anything for pain in the emergency room. Since it is unclear that patient hit his head or not he is on Lovenox we will obtain a CT of the brain and since he has distracting injury I will obtain a CT of the cervical spine. X-rays of the left shoulder and left elbow are ordered. CT of the brain and cervical spine are negative. X-rays of the left elbow and the left shoulder on my interpretation showed no acute fractures. The radiologist interpreted the left shoulder as a possible fracture of the scapula. At this point I did do blood work and obtained a CT of the chest as this would be a high impact injury. Lab work is all normal. CT of the chest with IV contrast is obtained and does not show any acute intrathoracic abnormalities. I reviewed the CT with the radiologist who states there is no fracture of the scapula on the left. Given this I feel the patient is safe to be discharged home. He will be started on [place] for pain. He is given follow- up with his PCP. Impression: 1. Slip and fall 2. Closed head injury 3. Left shoulder contusion 4. Left elbow contusion Lab Data Attestation: I reviewed the patient's lab results. Discharge Plan Triage Chief Complaint: Fall ED Provider: Henrry Mathias Dx/Rx/DC Orders Instructions: ED Contusion, Upper Extremity, ED Mechanical Fall Prescriptions: New hydrocodone-acetaminophen 5-325 mg tablet 1 tab PO Q6H PRN (Reason: pain) 3 Days Qty: 10 RF: 0 No Action carvedilol 12.5 mg tablet 12.5 mg PO BID Qty: 180 RF: 3 furosemide [Lasix] 40 mg tablet 40 mg PO BID Qty: 180 RF: 6 Trulicity 1.5 mg/0.5 mL pen injector 1.5 mg SC QWEEK RF: 0 citalopram [Celexa] 20 mg tablet 20 mg PO DAILY Qty: 60 RF: 3 Entresto 24-26 mg tablet 1 tab PO BID Qty: 60 RF: 6 prednisone 20 mg tablet 20 mg PO DAILY MDD 60mg Qty: 18 RF: 0 triamcinolone acetonide 0.1 % cream 1 applic TOPICAL TID Qty: 30 RF: 0 enoxaparin 150 MG/ML syringe 135 mg SC Q12@0600,1800 RF: 0 methimazole 5 MG tablet 7.5 mg PO DAILY RF: 0 metformin 1,000 mg tablet 1,000 mg PO BID RF: 0 multivitamin 1 EACH tablet 1 ea PO DAILY RF: 0 cholecalciferol (vitamin D3) 5,000 UNIT capsule 5,000 unit PO DAILY RF: 0 spironolactone 25 mg tablet 25 mg PO DAILY Qty: 90 RF: 1 Primary Care Provider: Jose L Houston Referrals: Jose L Houston DO [Primary Care Provider] - Disposition Disposition: Home, Self Care
--- NOTE | 2021-08-01 10:12 | CT_ITS ---
STUDY: CT BRAIN WITHOUT CONTRAST REASON FOR EXAM: Male, 45 years old. Head injury RADIATION DOSAGE (If Supplied By Facility): CTDIvol = ( 44.99 ) mGy, DLP = ( 846.73 ) mGycm TECHNIQUE: Transaxial CT imaging of the brain was performed without administration of intravenous contrast material. Individualized dose optimization techniques were used for this CT. COMPARISON: Comparison is made with prior study dated 05/18/2018. FINDINGS: Normal soft tissue structures. Normal calvarium. Normal size ventricles and extra-axial spaces for the patient''s age. Normal white matter tracts of the cerebral hemispheres. Normal basal ganglia and thalami. Normal brainstem. Normal cerebellum. There is no intracranial hemorrhage. There are no findings of an acute ischemic infarction. Normal visualized paranasal sinuses. CT/Brain/Head without Contrast IMPRESSION: Normal unenhanced CT scan of the brain. Electronically Signed: Lyle Marroquin MD at 10:38 EST ,
--- NOTE | 2021-08-01 10:14 | RAD_ITS ---
STUDY: X-RAY - LEFT ELBOW REASON FOR EXAM: Male, 45 years old. Elbow pain following a fall. TECHNIQUE: 3 view(s) of the elbow. COMPARISON: None. FINDINGS: Normal visualized humerus, radius and ulna. Normal radiocapitellar and ulnotrochlear articulations. The soft tissue structures are unremarkable. RAD/Elbow min 3 Views IMPRESSION: Normal x-ray examination of the elbow. Electronically Signed: Lyle Marroquin MD at 10:40 EST ,
[2021-08-01 11:30] LABS: Absolute Lymphocyte Count 2.08 X10^3/uL (0.83-4.51); Absolute Neutrophil Count 3.5 X10^3/uL (2.0-7.7); Basophil# 0.01 X10^3/uL; Basophil% 0.2 % (0-1); Eosinophil# 0.07 X10^3/uL; Eosinophils% 1.1 % (0-5); Hematocrit 46.7 % (40-54); Hemoglobin 15.7 g/dL (13.0-16.5); Lymphocyte # 2.08 X10^3/ul (0.83-4.51); Lymphocyte % 33.4 % (19-41); Mean Corp Hgb Conc 33.6 g/dL (32-36); Mean Corpuscular Hgb 30.5 pg (27.0-32.0); Mean Corpuscular Volume 90.9 fL (80-94); Mean Platelet Vol. 9.3 fl (6.2-12.0); Monocyte# 0.52 X10^3/uL; Monocyte% 8.4 % (0-10); NRBC Flagged by Analyzer 0 % (0-5); Neutrophil # 3.52 X10^3/uL (2.7-7.7); Neutrophil % 56.6 % (47-70); Platelet Count 214 K/mm3 (150-450); RBC Distribution Width CV 12.9 % (11.6-14.6); RBC Distribution Width SD 43.2 fl (35.1-43.9); Red Blood Count 5.14 M/mm3 (4.6-6.2); White Blood Count 6.2 K/mm3 (4.4-11.0)
[2021-08-01 11:35] LABS: Prothrombin Time (Protime)PT. 12.5 SECONDS (11.7-14.9)
[2021-08-01 11:38] LABS: Anion Gap 6 (5-15); BUN 23 mg/dL (7-18); BUN/Creat Ratio 27.8 RATIO (10-20); Calcium,Total 9.1 mg/dL (8.5-10.1); Chloride 102 mmol/L (98-107); Creatinine, Serum 0.83 mg/dL (0.70-1.30); EST Glomerular Filtration Rate 107 mL/min (>60); Est Glom Filt Rate - Afr Amer 129 mL/min (>60); Estimated Creatinine Clearance 137.99 ml/min; Glucose 236 mg/dL (74-106); Potassium 4.5 mmol/L (3.5-5.1); Sodium Level 136 mmol/L (136-145)
--- NOTE | 2021-08-01 12:40 | CT_ITS ---
STUDY: CT CHEST WITH CONTRAST REASON FOR EXAM: Male, 45 years old. Possible left scapular fracture. RADIATION DOSAGE (If Supplied By Facility): CTDIvol = ( 18.16 ) mGy, DLP = ( 707.52 ) mGycm TECHNIQUE: Transaxial imaging was performed following intravenous administration of IV 100mL Isovue-300. Multiplanar coronal and sagittal images were reformatted. Individualized dose optimization techniques were used for this CT. COMPARISON: None. FINDINGS: The lungs are normal. There is no demonstrated pleural abnormality. Normal heart and pericardium. Normal mediastinum. Normal hilar regions. Normal enhanced pulmonary arteries. Normal aorta arch and descending thoracic aorta. Normal osseous structures. There is no demonstrated abnormality of the visualized upper abdomen. CT/Chest WITH Contrast IMPRESSION: Normal enhanced CT Chest examination. Electronically Signed: Lyle Marroquin MD at 13:31 EST ,
[2021-08-01 13:42] VITALS: BP 134/78; PULSE 68; RESP 18; TEMP 36.9; O2SAT 98
[2021-08-01 14:01] VITALS: BP 134/78; PULSE 88; RESP 16; TEMP 36.9; O2SAT 98
== END 2021-08-01 14:23 | disposition home or self-care (01) ==
PROVIDERS: Emergency Provider Student in an Organized Health Care Education/Training Program; PCP Family Medicine; Visit Provider Student in an Organized Health Care Education/Training Program
DX: S50.02XA Contusion of left elbow, initial encounter (principal); I50.32 Chronic diastolic (congestive) heart failure; I42.9 Cardiomyopathy, unspecified; I11.0 Hypertensive heart disease with heart failure; E11.9 Type 2 diabetes mellitus without complications; S09.90XA Unspecified injury of head, initial encounter; W01.0XXA Fall on same level from slipping, tripping and stumbling without subsequent striking against object, initial encounter; Z87.891 Personal history of nicotine dependence; Z86.718 Personal history of other venous thrombosis and embolism; Z86.711 Personal history of pulmonary embolism; Z79.899 Other long term (current) drug therapy; Y93.01 Activity, walking, marching and hiking; Y92.9 Unspecified place or not applicable; Z79.84 Long term (current) use of oral hypoglycemic drugs; S40.012A Contusion of left shoulder, initial encounter
CPT/HCPCS: 70450; 71260; 72125; 73030; 73080; 80048; 82077; 85025; 85610; 99283; Q9967; A4216

== ENCOUNTER 2021-08-21 12:25 | Outpatient (CLI) | payer OTHER, SELFPAY ==
--- NOTE | 2021-08-21 12:47 | MRI_ITS ---
STUDY: MRI LEFT SHOULDER REASON FOR EXAM: Left shoulder pain, left shoulder injury 2-3 weeks ago. TECHNIQUE: Standardized fat and water weighted pulse sequences were obtained in all 3 orthogonal planes. COMPARISON: Radiographs 08/01/2021. FINDINGS: Normal supraspinatus tendon. Normal infraspinatus tendon. There is a non retracted full-thickness tear of the distal subscapularis tendon (proton-density axial images 16, 17). Normal teres minor tendon. Normal supraspinatus muscle. Normal infraspinatus muscle. Normal subscapularis muscle. Normal teres minor muscle. Normal glenohumeral articulation. There is a mild bone contusion of the posterior aspect of the humeral head (T2 coronal images 15-17). Normal biceps labral complex. There is medial subluxation of the proximal extracapsular long biceps tendon under the transverse humeral ligament (proton-density sagittal images 14, 15). Normal labrum. Normal capsulo- ligamentous complex. There is acromioclavicular arthrosis with mild hypertrophic changes effacing the subacromial fat (T2 sagittal image 9). There is a Type II morphology (curved), with a neutral orientation. There is no subacromial-subdeltoid bursal fluid. Normal visualized coracohumeral and coracoacromial ligaments. Normal deltoid muscle. Normal trapezius muscle. MRI/Upper Ext Joint Only(Routine) IMPRESSION: Full-thickness subscapularis tendon tear. Medial subluxation of the proximal extracapsular long biceps tendon under the transverse humeral ligament. Mild bone contusion of the humeral head. Acromioclavicular arthrosis. Electronically Signed: Ab James MD at 14:15 EST ,
== END 2021-08-21 23:59 | disposition home or self-care (01) ==
PROVIDERS: PCP Family Medicine; Visit Provider Student in an Organized Health Care Education/Training Program
DX: S43.402A Unspecified sprain of left shoulder joint, initial encounter (principal)
CPT/HCPCS: 73221

== ENCOUNTER 2021-09-11 07:37 | Outpatient (CLI) | payer OTHER, SELFPAY ==
[2021-09-11 10:53] LABS: Hemoglobin A1c 9.1 % (3.8-5.6)
[2021-09-11 11:02] LABS: AST(SGOT) 24 U/L (15-37); Alanine Aminotransfer ALT/SGPT 47 U/L (16-61); Alkaline Phosphatase 77 U/L (45-117); Bilirubin, Direct 0.15 mg/dL (0.00-0.30); Cholesterol 243 mg/dL (200); Globulin 3.4 g/dL (2.2-4.2); High Density Lipoprotein 36 mg/dL; Protein, Total 7.4 g/dL (6.4-8.2); T4 Free Direct 1.44 ng/dL (0.76-1.46); Thyroid Stim Hormone (TSH) 0.17 uIU/mL (0.358-3.74); Triglycerides 666 mg/dL
[2021-09-11 11:05] LABS: Microalbumin,Random Urine 26.2 mg/L (NO RANGE EST.); Microalbumin:Creatinine Ratio 25.7 mg/g CRE (<30 mg/g CRE)
== END 2021-09-11 23:59 | disposition home or self-care (01) ==
LOC: MTLAB 07:39
PROVIDERS: PCP Family Medicine; Referring Provider Family Medicine; Visit Provider Family Medicine
DX: E11.9 Type 2 diabetes mellitus without complications (principal); I10 Essential (primary) hypertension; E05.90 Thyrotoxicosis, unspecified without thyrotoxic crisis or storm
CPT/HCPCS: 36415; 80061; 80076; 82043; 82570; 83036; 84439; 84443

== ENCOUNTER → 2022-02-13 | Outpatient (CLI) | payer OTHER, SELFPAY ==
[2022-02-13 10:21] LABS: Absolute Lymphocyte Count 1.65 X10^3/uL (0.83-4.51); Absolute Neutrophil Count 3.1 X10^3/uL (2.0-7.7); Basophil# 0.02 X10^3/uL; Basophil% 0.4 % (0-1); Eosinophil# 0.07 X10^3/uL; Eosinophils% 1.3 % (0-5); Hematocrit 48.3 % (40-54); Hemoglobin 15.5 g/dL (13.0-16.5); Lymphocyte # 1.65 X10^3/ul (0.83-4.51); Mean Corp Hgb Conc 32.1 g/dL (32-36); Mean Corpuscular Hgb 29.9 pg (27.0-32.0); Mean Corpuscular Volume 93.1 fL (80-94); Mean Platelet Vol. 9.7 fl (6.2-12.0); Monocyte# 0.47 X10^3/uL; Monocyte% 8.8 % (0-10); NRBC Flagged by Analyzer 0 % (0-5); Neutrophil # 3.08 X10^3/uL (2.7-7.7); Neutrophil % 57.9 % (47-70); Platelet Count 242 K/mm3 (150-450); RBC Distribution Width CV 13.8 % (11.6-14.6); RBC Distribution Width SD 47.5 fl (35.1-43.9); Red Blood Count 5.19 M/mm3 (4.6-6.2); White Blood Count 5.3 K/mm3 (4.4-11.0)
[2022-02-13 10:43] LABS: Hemoglobin A1c 8.6 % (3.8-5.6)
[2022-02-13 11:02] LABS: ALB/GLOB Ratio 1.3 RATIO (0.9-2.4); AST(SGOT) 15 U/L (15-37); Alanine Aminotransfer ALT/SGPT 31 U/L (16-61); Albumin, Serum 4.2 g/dL (3.2-5.0); Alkaline Phosphatase 78 U/L (45-117); Anion Gap 10 (5-15); BUN 21 mg/dL (7-18); BUN/Creat Ratio 28.5 RATIO (10-20); Calcium,Total 9.2 mg/dL (8.5-10.1); Chloride 101 mmol/L (98-107); Creatinine, Serum 0.74 mg/dL (0.70-1.30); EST Glomerular Filtration Rate 121 mL/min (>60); Est Glom Filt Rate - Afr Amer 147 mL/min (>60); Globulin 3.3 g/dL (2.2-4.2); Glucose 248 mg/dL (74-106); Potassium 3.8 mmol/L (3.5-5.1); Protein, Total 7.5 g/dL (6.4-8.2); Sodium Level 138 mmol/L (136-145); T4 Free Direct 1.18 ng/dL (0.76-1.46); Thyroid Stim Hormone (TSH) 1.28 uIU/mL (0.358-3.74)
== END | disposition home or self-care (01) ==
LOC: MTLAB 07:34
PROVIDERS: PCP Family Medicine; Referring Provider Family Medicine; Visit Provider Family Medicine
DX: R53.83 Other fatigue (principal); E11.9 Type 2 diabetes mellitus without complications; E05.90 Thyrotoxicosis, unspecified without thyrotoxic crisis or storm
CPT/HCPCS: 36415; 80053; 83036; 84439; 84443; 85025

== ENCOUNTER → 2022-05-29 | Outpatient (CLI) | payer OTHER, SELFPAY ==
--- NOTE | 2022-05-29 13:20 | CT_ITS ---
STUDY: CT ABDOMEN AND PELVIS WITH CONTRAST REASON FOR EXAM: Male, 46 years old. Rectal bleed, diarrhea, abd pain -- oral and iv RADIATION DOSAGE (If Supplied By Facility): CTDIvol = ( 18.74 ) mGy, DLP = ( 1408.15 ) mGycm TECHNIQUE: Transaxial images were obtained from the dome of the diaphragm to the symphysis pubis with oral contrast. Oral and amp; IV Readi-CAT and amp; 100mL Isovue-300 was administered. Sagittal and coronal images were reconstructed. Individualized dose optimization techniques were used for this CT. COMPARISON: Comparison is made with prior study dated 11/25/2018. FINDINGS: The visualized lung bases are unremarkable. The visualized portions of the heart are within normal limits. Hepatomegaly. Diffuse fatty infiltration of the liver. Normal gallbladder and extrahepatic biliary system. Normal spleen. Normal pancreas. Normal bilateral adrenal glands. There is a 1.5 cm cyst in the posterior midportion of the right kidney. This also evidence of a 1.4 cm cyst in the posterior aspect of the left kidney. Normal left kidney. Normal visualized stomach. Normal small intestine. There are scattered colonic diverticula consistent with diverticulosis. The appendix is visualized and appears normal. Normal abdominal aorta. Normal inferior vena cava. Normal retroperitoneum. Normal urinary bladder. Increased markings in the subcutaneous fat in the lower anterior abdomen most likely secondary to possible INSULIN injection. Normal osseous structures. CT/Abdomen/Pelvis WITH Contrast IMPRESSION: Hepatomegaly and diffuse fatty infiltration of the liver. Electronically Signed: Lyle Marroquin MD at 15:23 EST ,
[2022-05-29 14:10] LABS: CREATININE FINGERSTICK < 0.9 mg/dL (0.70-1.30); EGFR FINGERSTICK > 60.0000 mL/min (>60)
== END | disposition home or self-care (01) ==
LOC: CT 13:20
PROVIDERS: PCP Family Medicine; Referring Provider Nurse Practitioner Adult Health; Visit Provider Nurse Practitioner Adult Health
DX: R19.7 Diarrhea, unspecified (principal); K62.5 Hemorrhage of anus and rectum; K57.30 Diverticulosis of large intestine without perforation or abscess without bleeding; R16.0 Hepatomegaly, not elsewhere classified; N28.1 Cyst of kidney, acquired; K76.0 Fatty (change of) liver, not elsewhere classified; R10.9 Unspecified abdominal pain
CPT/HCPCS: 74177; Q9967

== ENCOUNTER 2022-06-01 16:30 | Outpatient (RCR) | payer OTHER, SELFPAY ==
--- NOTE | 2021-11-18 09:06 | HP.PTEVAL ---
Patient's Visit Information KATRINA MELVIN is a 46 year old M referred to Physical Therapy by NAOMY MORELOS with a diagnosis of S/P L shoulder arthroscopic debridement, subscap repair, biceps tenodesis. Date of Evaluation: 11/10/21 Physical Therapist: Loki Nelson DPT - Visit Plan Frequency: 2-3x /Week Duration: 8 weeks Plan: Start with PROM, no forceful motion into pain. Progress via protocol. - Subjective Pt. is here today for his initial evaluation with diagnosis of L subscap repair and biceps tenodesis. DOS: 10/15/21. Pt. is ~4 weeks out of surgery. He reports hurting his arm while falling at work. He arrives in sling today as prescribed. He reports wearing sling throughout day and night and uses alternate sling in shower. His is a USER INTERFACE DEVELOPER who has been helping out as well. Pt. denies N/T in either UE. Pt. reports no headache, fever, changes in vision. He has been compliant with HEP, but reports being careful. He reports minimal pain at rest, but has increased pain with stretching. He is sleeping well. He is planning on going [place] in [place] at the end of next month. He is to follow up with physician in 2 weeks. - Pain L shoulder Pain Intensity (Out of 10): 2 Pain Intensity Range: 1, 8 - Objective POSTURE: Pt. keeps L arm guarded at side, hesitant to straighten his elbow. Normal shoulder heights, symmetrical. PALPATION: Pt. has normal healing incision, no signs of infection. NEURO: normal throughout BUEs. ROM: R shoulder full ROM including functional ER/IR. L shoulder: PROM: flexion 45deg. abd 30deg, ER to 0deg. L elbow lacking 10deg from extension. Pt. reports pain at all end ranges of motion, did not force past. MMT: RUE: 5/5 throughout. LUE: DNT due to recent surgery. - Balance/Special Test Scores Quick DASH Score: 57.5000 - Goals Goal 1:: LTG: Pt. to be I with HEP for L shoulder PROM, AAROM, and AROM. Goal Time Frame: 4-6 Weeks Goal 2:: STG: Pt. to sleep throughout the night with 0-1/10 pain in L shoulder. Goal Time Frame: 2 Weeks Goal 3:: STG: Pt. to have increased PROM to 130deg of flexion and 30deg of ER. Goal Time Frame: 2-4 Weeks Goal 4:: LTG: Pt. to have full AAROM of L shoulder. Goal Time Frame: 4-6 Weeks Goal 5:: LTG: Pt. to have full AROM of L shoulder without increase in symptoms. Goal Time Frame: 4-6 Weeks - Rehabilitation Potential Physical Therapy Diagnosis: Pt. has signs and symptoms consistent with S/P L shoulder arthroscopic debridement, subscap repair, biceps tenodesis. DOS: 10/15/21. Pt. has subsequent hypomobility, weakness, increased pain. He would benefit from PT to address the above limitations progressing back to all pervious activities. Rehabilitation Potential: Excellent - Anticipated Interventions Patient/Client Instruction: Educate patient on: Condition, Plan of Care, Risk Factors, Benefits of Fitness Program For the Purpose of:: To foster healthy habits, To improve decision making, To facilitate caregiver knowledge, To improve self management, To prevent re-injury, To improve ability to perform tasks related to life management Therapeutic Exercise to Include: Postural training, Flexibilty training, Passive ROM, Active ROM, Scapular Strength/Stabilization For the Purpose of:: To decrease pain, To decrease swelling/inflammation, To increase ROM, To improve nutrient delivery to tissue, To increase oxygenation perfusion, To improve muscle performance and motor function, To decrease soft tissue restriction, To increase flexibility/ROM TENS: Yes Cryotherapy (ice pack, ice massage): Yes Thermo therapy (hot pack): Yes For the Purpose of:: To decrease pain, To decrease swelling/inflammation, To increase ROM Thank you for the opportunity to evaluate your patient. For Medicare and Medicare HMO plans, please review the plan of care and approve it. It will need to be FAXED BACK to us at [phone] for Medicare purposes. For Medicare only, by signing this I certify the plan of care. Please let me know if there are questions or concerns regarding this plan of care. Physician Signature: Date:
== END 2022-06-01 19:00 | disposition home or self-care (01) ==
LOC: PT 16:30
PROVIDERS: PCP Family Medicine
DX: Z47.89 Encounter for other orthopedic aftercare (principal)
CPT/HCPCS: 97110; 97140; 97161

== ENCOUNTER 2022-06-03 16:23 | Outpatient (RCR) | payer OTHER, SELFPAY | END 2022-06-03 19:00 | disposition home or self-care (01) | LOC: PT 16:23 | PROVIDERS: PCP Family Medicine | DX: Z98.890 Other specified postprocedural states (principal) ==

== ENCOUNTER → 2022-06-19 | Outpatient (CLI) | payer OTHER, SELFPAY ==
--- NOTE | 2022-06-19 09:24 | US_ITS ---
STUDY: ABDOMINAL ULTRASOUND - RIGHT UPPER QUADRANT REASON FOR VISIT: Male, 46 years old fatty liver on CT -- for elastography TECHNIQUE: Ultrasound evaluation of the right upper quadrant was performed with real-time and static duffy-scale imaging. TECHNICAL QUALITY: Adequate. COMPARISON: None. FINDINGS: Liver: The liver is enlarged and measures 23.1 cm. There is increased echogenicity consistent with fatty infiltration. The bile ducts are within normal limits. There is hepatic color flow. The direction of portal flow is hepatopetal. There is no demonstrated mass lesion. Gallbladder: Normal distended gallbladder. The gallbladder wall measures 3.0 mm. There is a negative sonographic Quiroz''s sign. There is no pericholecystic fluid. There are no gallstones. Common Bile Duct (C.B.D.): The common bile duct measures 4 mm. Pancreas: There is nonvisualization of the pancreas due to overlying bowel gas. Right Kidney: Normal size of the right kidney. The right kidney measures 13.9 cm x 6.5 cm x 5.7 cm. Normal renal cortex. The right cortex measures 1.6 cm. There is no demonstrated renal mass or cyst. There is no right hydronephrosis. US/Abdomen Limited IMPRESSION: Hepatomegaly and diffuse fatty infiltration of the liver. Electronically Signed: Lyle Marroquin MD at 10:46 EST ,
--- NOTE | 2022-06-19 09:24 | US_ITS ---
STUDY: ABDOMINAL ULTRASOUND - ELASTOGRAPHY REASON FOR VISIT: Male, 46 years old. Fatty infiltration of the liver. Hepatomegaly. TECHNIQUE: Liver stiffness measurements were obtained on a [employer] RS 85 ultrasound machine using a CA 1-7 probe following the SRU guidelines. 3 measurements were obtained using a 2-D-SWE method. The IQR/M was 10% suggesting a quality data set. TECHNICAL QUALITY: Adequate. COMPARISON: Comparison is made with prior study done earlier today. FINDINGS: Liver: There is evidence of fatty infiltration of the liver. Hepatomegaly. Median liver stiffness measured 27 kPa. US/Elastography Parenchyma/Organ IMPRESSION: Liver stiffness measures 27 kPa compatible with F3-F4 (Moderate to severe liver fibrosis) Metavir score. Electronically Signed: Lyle Marroquin MD at 10:47 EST ,
== END | disposition home or self-care (01) ==
LOC: US 09:23
PROVIDERS: PCP Family Medicine; Referring Provider Nurse Practitioner Adult Health; Visit Provider Nurse Practitioner Adult Health
DX: K76.0 Fatty (change of) liver, not elsewhere classified (principal); R16.0 Hepatomegaly, not elsewhere classified
CPT/HCPCS: 76705; 76981

== ENCOUNTER 2022-07-08 06:23 | Day surgery (SDC) | payer OTHER, SELFPAY ==
[2022-07-08] VITALS (7 sets, daily range): BP systolic 100–122; BP diastolic 62–107; PULSE 61–69; RESP 16–18; TEMP 35.8–36.7; O2SAT 95–97; BMI 35.0
--- NOTE | 2022-07-08 | GASB_PTH ---
PATIENT: KATRINA MELVIN LOC: [facility] U#:[id number] AGE/SX: 46/M ROOM: RE07/08/[address]: Dr. Yung Tate DO : 1975 BED: DIS: 07/08/2022 SPEC #: [id number] RECD: 07/08/22 13:06 STATUS: АЛЕКСАНДР SHANAE #: [id number] ELVIRA: 07/08/22 00:[address]: Yung Tate DEPT: SURGICAL PATHOLOGY RECD BY: Abel Martinez ENTERED: 07/08/22 13:07 SP TYPE: Gastric Bx OTHR DR: Dr. Jose L Houston DO Tissues: A - Duodenum, NOS B - Gastric mucous membrane C - Esophageal mucous membrane D - Ileum, NOS Procedures: Special Stain Group II Surgery Specimen Level IV Alcian Blue/PAS (control) HEADER OPERATION: Colonoscopy, EGD ([facility] [place]) PRE-OP DIAGNOSIS: Rectal bleeding, diarrhea TISSUE SUBMITTED: A ? Duodenum biopsy, B ? Gastric body biopsy, C ? Distal esophagus biopsy, D ? Terminal ileum biopsy MICROSCOPIC DIAGNOSIS A. Duodenum, biopsy: Gastric metaplasia. Minimal nonspecific chronic inflammation. B. Gastric body, biopsy: Chronic gastritis. See comment. C. Distal esophagus, biopsy: Gastroesophageal junctional mucosa with chronic inflammation. 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 No evidence of dysplasia. See comment. D. Terminal ileum, biopsy: No pathologic change. AM:naveed 07/09/2022 COMMENT B. The results of immunohistochemistry for Helicobacter pylori will be reported separately ([id number]). C. Immunohistochemistry ([id number]) for P53 and Ki-67 will be performed and results will be reported separately. Alcian blue/PAS stain with matched control supports the above diagnosis. MICROSCOPIC DESCRIPTION Slides are reviewed. GROSS DESCRIPTION A - Received in fixative is one container labeled with the patient's name and designated duodenum biopsy. The specimen consists of multiple irregular fragments of light stoll soft tissue that in aggregate measure 1.6 x 0.6 x 0.1 cm. The specimen is totally submitted in one cassette. B - Received in fixative is one container labeled with the patient's name and designated gastric body biopsy. The specimen consists of multiple irregular fragments of light stoll soft tissue that in aggregate measure 1.5 x 0.5 x 0.1 cm. The specimen is totally submitted in one cassette. C - Received in fixative is one container labeled with the patient's name and designated distal esophagus biopsy. The specimen consists of multiple irregular fragments of light stoll soft tissue that in aggregate measure 1 x 0.3 x 0.1 cm. The specimen is totally submitted in one cassette. D - Received in fixative is one container labeled with the patient's name and designated terminal ileum biopsy. The specimen consists of multiple irregular fragments of light stoll soft tissue that in aggregate measure 1 x 0.2 x 0.1 cm. The specimen is totally submitted in one cassette. / AM:naveed 07/08/2022 TC:3 CPT: 97784 x4, 56930
[2022-07-08] MEDS: Lactated Ringers 1,000 ML 15 ML IV (06:56)
[2022-07-08 07:20] LABS: Bedside Glucose 298 mg/dL (74-106)
--- NOTE | 2022-07-08 07:27 | HP.PCM_ITS ---
History and Physical Date of Admission: 07/08/22 KATRINA MELVIN, is a 46 M who presents to the office today for rectal bleeding. Symptoms began in 2018. Worse this year, clots, dark blood. Was bleeding through his shorts. Cramps, urgency. Stools are always soft. Can have days when feels constipation, thinks due to Trulicity. Often has tenesmus. Can have bright red blood with wiping which seems like hemorrhoids. Other times he passes large dark red blood clots w/o BM, no tarry or black stools. Soft stool with urgency improved temporarily when he was taken off metformin. Can have cramps that start during BM, then stool becomes liquid. Can be multiple BMs per day. Bowels do wake him in the night. Sometimes has BM one hr after eating but not typically. Some nausea when he takes Trulicity, no vomiting. No dysphagia. No heartburn, rare acid reflux. He had regular BM at 0700 daily until his accident which occurred in 2015. 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 Sees heme/onc Dr Winter Sees pulm Dr Allen Sees cardiology at [facility] for heart failure 2019 gastric emptying study was normal 2019 CT/Abdomen/Pelvis WITH Contrast IMPRESSION: 1. No acute intra-abdominal or pelvic disease. 2. Mild gastric distention with food and fluid residua. Correlate clinically. Hyperdense material most likely representing partial ingestion of oral contrast or hyperdense liquid. 3. Hepatosplenomegaly, unchanged. ROS Const Constitutional: Positive for weakness; No fatigue, fever(s), frequent falls, headache(s) or weight change ENT ENT: No headache(s) or difficulty swallowing Cardio Cardiology: No leg pain with exertion Gastro GI: Positive for abdominal pain, bloating, constipation, cramping, diarrhea and Blood in stool; No change in bowel habits, heartburn, difficulty swallowing, Vomiting blood/hematemesis, nausea/dyspepsia or vomiting Musc Musculoskeletal: Positive for joint pain, joint swelling, muscle cramps, numbness and tingling; No abnormal gait, back pain, muscle weakness, stiffness, Arthritis, sciatica, leg pain at night or leg pain with exertion Skin Skin: No dry skin, lesions, itchy eyes or rash Neuro Neurology: Positive for weakness, numbness and tingling; No abnormal gait, dizziness, frequent falls, headache(s), tremor(s), Increased tone in limbs, paralysis or seizures Psych Psychiatric: No anxiety, No depression, No paranoia, No Behavioral Problems, No Compulsive Behavior, No hyperactivity, No inattentiveness, No obsessions/compulsions, No Temper Tantrums and No suicidal ideation Endo Endocrine: No fatigue or weight change Aller/Imm Allergy/Immunologic: No itchy eyes Anuj/Lymp Hematologic/Lymphatic: No easy bleeding or easy bruising Exam Const General: cooperative and comfortable Nutritional Appearance: overweight Orientation: alert, awake and oriented x3 Eyes Sclera: sclerae normal Resp Effort & Inspection: normal respiratory effort Quality Reporting Tobacco Screening ([facility] 138) Smoking Status: Former smoker Assessment and Plan Assessment and Plan (1) Rectal bleeding: ?Status:?Acute ?Plan: 46 yr old male with rectal bleeding, diarrhea Case discussed with Dr Tate DDx included diabetic diarrhea, neuropathy, EPI, fatty pancreas CT abd pel EGD and colonoscopy, hold PM and AM doses enoxaparin, cc Dr Winter Stool tests Labs f/u after endoscopies (2) Diarrhea: ?Status:?Acute ?Plan: as above (3) Abdominal pain: ?Status:?Acute ?Plan: as above ? ? ? Orders: Orders Comprehensive Metabolic Profil 05/04/22 K62.5 - Hemorrhage of anus and rectum, R19.7 - Diarrhea, unspecified ? CRP 05/04/22 K62.5 - Hemorrhage of anus and rectum, R19.7 - Diarrhea, unspecified ? LDH 05/04/22 K62.5 - Hemorrhage of anus and rectum, R19.7 - Diarrhea, unspecified ? CBC W/Diff, Automated 05/04/22 K62.5 - Hemorrhage of anus and rectum, R19.7 - Diarrhea, unspecified ? Erythrocyte Sed Rate 05/04/22 K62.5 - Hemorrhage of anus and rectum, R19.7 - Diarrhea, unspecified ? JO Comprehensive Panel 05/04/22 K62.5 - Hemorrhage of anus and rectum, R19.7 - Diarrhea, unspecified ? Calprotectin, Stool 05/04/22 K62.5 - Hemorrhage of anus and rectum, R19.7 - Diarrhea, unspecified ? Stool Lactoferrin/WBC 05/04/22 K62.5 - Hemorrhage of anus and rectum, R19.7 - Diarrhea, unspecified ? ANCA 05/04/22 K62.5 - Hemorrhage of anus and rectum, R19.7 - Diarrhea, unspecified ? Celiac Disease Profile 05/04/22 K62.5 - Hemorrhage of anus and rectum, R19.7 - Diarrhea, unspecified ? Immunoglobulins G/A/M/E 05/04/22 K62.5 - Hemorrhage of anus and rectum, R19.7 - Diarrhea, unspecified ? IVANNA + Protein Elect, Serum 05/04/22 K62.5 - Hemorrhage of anus and rectum, R19.7 - Diarrhea, unspecified ? Miscellaneous Lab Procedure 05/04/22 K62.5 - Hemorrhage of anus and rectum, R19.7 - Diarrhea, unspecified ? Ova and Parasites 8623 05/04/22 K62.5 - Hemorrhage of anus and rectum, R19.7 - Diarrhea, unspecified ? CDIFF (PCR) 05/04/22 K62.5 - Hemorrhage of anus and rectum, R19.7 - Diarrhea, unspecified ? ENTERIC PATHOGEN PANEL STOOL 05/04/22 K58.9 - Irritable bowel syndrom e without diarrhea, K62.5 - Hemorrhage of anus and rectum, R19.7 - Diarrhea, unspecified ? Abdomen/Pelvis WITH Contrast 05/04/22 K62.5 - Hemorrhage of anus and rectum, R10.9 - Unspecified abdominal pain, R19.7 - Diarrhea, unspecified ? Fecal Fat, Qualitative 05/04/22 R19.7 - Diarrhea, unspecified ? Pancreatic Elastase, Fecal 05/04/22 R19.7 - Diarrhea, unspecified ? Colonoscopy 07/08/22 K62.5 - Hemorrhage of anus and rectum, R10.9 - Unspecified abdominal pain, R19.7 - Diarrhea, unspecified ? EGD 07/08/22 K62.5 - Hemorrhage of anus and rectum, R10.9 - Unspecified abdominal pain, R19.7 - Diarrhea, unspecified ? Medications: Discontinued prednisone ?? Tapering Dose ?? 60mg x 3 days ?? 40mg x 3 days ?? 20mg x 3 days ?? Discontinued Reason:? Pt not known to practice I have examined the patient and the H&P has been reviewed. There are no clinical changes since date of exam.
--- NOTE | 2022-07-08 07:30 | IMM_PTH ---
PATIENT: KATRINA MELVIN LOC: [facility] U#:[id number] AGE/SX: 46/M ROOM: RE07/08/[address]: Dr. Yung Tate DO : 1975 BED: DIS: 07/08/2022 SPEC #: [id number] RECD: 07/08/22 13:33 STATUS: АЛЕКСАНДР REElidia #: [id number] ELVIRA: 07/08/22 07:[address]: Yung Tate DEPT: IMMUNOHISTOCHEMISTRY RECD BY: Larisa Benton ENTERED: 07/08/22 13:34 SP TYPE: IMMUNO OTHR DR: Dr. Jose L Houston DO Tissues: B - Stomach, NOS C - Esophagus, NOS Procedures: H Pylori (initial) P53 (initial) KI-67 (add) PHYSICIAN & INSTITUTION [place] [phone] SPECIMEN INFORMATION: Tissue Source: B ? Gastric body, C ? Distal esophagus Clinical Info: Rectal bleeding, diarrhea Specimen Number: [id number] B & C CPT code: 07482 x2, 70393 METHODOLOGY: Deparaffinized sections of prefer/formalin-fixed tissue or PAP/DQ stained slides are incubated with monoclonal/polyclonal antibodies/oligonucleotide probes. Localization is made via biotin free immunoperoxidase method. Appropriate controls are performed and reacted as expected. Results on target cell population are indicated in the following table: RESULTS: ANTIBODY / CLONE RESULT Block B H Pylori (polyclonal) negative Block C P53 (DO-7) negative Ki-67 (30-9) positive, low These tests were developed and their performance characteristics determined by [facility]. They may not have been cleared or approved by the U.S. Food and Drug Administration. The FDA has determined that such clearance or approval is not necessary. The above immunohistochemical/dualISH markers are ordered and reviewed by the Pathologist. INTERPRETATION: B. Gastric body, biopsy: Negative for Helicobacter pylori organisms. C. Distal esophagus, biopsy: No evidence of dysplasia. AM:naveed 07/10/2022
--- NOTE | 2022-07-08 08:06 | OP.EGD_ITS ---
Patient Name: Jorge Martin Procedure Date: 07/08/2022 7:32 AM Date of : 1975 Age: 46 Procedure: Upper GI endoscopy Indications: Dyspepsia, Indigestion Providers: Yung Tate DO Referring MD: Yung Tate DO Medicines: Monitored Anesthesia Care Patient Profile: This is a 46 year old male. Refer to note in patient chart for documentation of history and physical. Patient has symptoms of chronic abdominal cramping, chronic global abdominal pain, chronic dyspepsia and chronic heartburn. Complications: No immediate complications. Procedure: Pre-Anesthesia Assessment: - Prior to the procedure, a History and Physical was performed, and patient medications and allergies were reviewed. The patient is competent. The risks and benefits of the procedure and the sedation options and risks were discussed with the patient. All questions were answered and informed consent was obtained. Patient identification and proposed procedure were verified by the physician in the pre-procedure area. Mental Status Examination: alert and oriented. Airway Examination: normal oropharyngeal airway and neck mobility. Respiratory Examination: clear to auscultation. CV Examination: normal. Prophylactic Antibiotics: The patient does not require prophylactic antibiotics. Prior Anticoagulants: The patient has taken no previous anticoagulant or antiplatelet agents. ASA Grade Assessment: II - A patient with mild systemic disease. After reviewing the risks and benefits, the patient was deemed in satisfactory condition to undergo the procedure. The anesthesia plan was to use monitored anesthesia care (MAC). Immediately prior to administration of medications, the patient was re-assessed for adequacy to receive sedatives. The heart rate, respiratory rate, oxygen saturations, blood pressure, adequacy of pulmonary ventilation, and response to care were monitored throughout the procedure. The physical status of the patient was re-assessed after the procedure. After obtaining informed consent, the endoscope was passed under direct vision. Throughout the procedure, the patient's blood pressure, pulse, and oxygen saturations were monitored continuously. The Colonoscope was introduced through the mouth, and advanced to the second part of duodenum. The upper GI endoscopy was accomplished without difficulty. The patient tolerated the procedure well. Scope In: 7:40:14 AM Scope Out: 7:46:03 AM Total Procedure Duration Time 0 hours 5 minutes 49 seconds Findings: LA Grade A (one or more mucosal breaks less than 5 mm, not extending between tops of 2 mucosal folds) esophagitis with no bleeding was found 36 to 38 cm from the incisors. Biopsies were taken with a cold forceps for histology. Verification of patient identification for the specimen was done. Estimated blood loss was minimal. Patchy moderate inflammation characterized by congestion (edema), erosions and erythema was found in the gastric body. Biopsies were taken with a cold forceps for histology. Verification of patient identification for the specimen was done. Estimated blood loss was minimal. Patchy inflammation characterized by erosions, erythema and granularity was found in the duodenal bulb. Biopsies were taken with a cold forceps for histology. Verification of patient identification for the specimen was done. Estimated blood loss was minimal. Impression: - LA Grade A reflux esophagitis. Biopsied. - Gastritis. Biopsied. - Chronic duodenitis. Biopsied. Recommendation: - Discharge patient to home. - Resume previous diet. - Continue present medications. - Await pathology results. Procedure Code(s): --- Professional --- 75269, Esophagogastroduodenoscopy, flexible, transoral; with biopsy, single or multiple CPT copyright 2017 [employer]. All rights reserved. The codes documented in this report are preliminary and upon seismic interpreter review may be revised to meet current compliance requirements. Yung Tate DO 07/08/2022 8:06:31 AM This report has been signed electronically. Number of Addenda: 0 Note Initiated On: 07/08/2022 7:32 AM
--- NOTE | 2022-07-08 08:07 | OP.CCLET_ITS ---
07/08/2022 Jose L Houston [address] [place] [address] Re : Upper GI endoscopy procedure for Jorge Via Dear Dr. Houston This procedure was performed on Friday, July 08, 2022. My impressions and recommendations are as follows: Impressions : - LA Grade A reflux esophagitis. Biopsied. - Gastritis. Biopsied. - Chronic duodenitis. Biopsied. Recommendations : - Discharge patient to home. - Resume previous diet. - Continue present medications. - Await pathology results. My findings are described in the full procedure note, which is enclosed. If I can be of further assistance, please feel free to contact me at . Sincerely, Yung Tate, 07/08/2022 8:06:31 AM This report has been signed electronically.
--- NOTE | 2022-07-08 08:13 | OP.COLON_ITS ---
Patient Name: Jorge Martin Procedure Date: 07/08/2022 7:46 AM Date of : 1975 Age: 46 Procedure: Colonoscopy Indications: Generalized abdominal pain, Hematochezia Providers: Yung Tate DO Referring MD: Yung Tate DO Medicines: Propofol per Anesthesia, Monitored Anesthesia Care Patient Profile: This is a 46 year old male. Refer to note in patient chart for documentation of history and physical. Patient has symptoms of chronic abdominal cramping, chronic global abdominal pain, chronic dyspepsia and chronic heartburn. Last Colonoscopy: none. The patient's first colonoscopy is today. Complications: No immediate complications. Procedure: Pre-Anesthesia Assessment: - Prior to the procedure, a History and Physical was performed, and patient medications and allergies were reviewed. The patient is competent. The risks and benefits of the procedure and the sedation options and risks were discussed with the patient. All questions were answered and informed consent was obtained. Patient identification and proposed procedure were verified by the physician in the pre-procedure area. Mental Status Examination: alert and oriented. Airway Examination: normal oropharyngeal airway and neck mobility. Respiratory Examination: clear to auscultation. CV Examination: normal. Prophylactic Antibiotics: The patient does not require prophylactic antibiotics. Prior Anticoagulants: The patient has taken no previous anticoagulant or antiplatelet agents. ASA Grade Assessment: II - A patient with mild systemic disease. After reviewing the risks and benefits, the patient was deemed in satisfactory condition to undergo the procedure. The anesthesia plan was to use monitored anesthesia care (MAC). Immediately prior to administration of medications, the patient was re-assessed for adequacy to receive sedatives. The heart rate, respiratory rate, oxygen saturations, blood pressure, adequacy of pulmonary ventilation, and response to care were monitored throughout the procedure. The physical status of the patient was re-assessed after the procedure. After I obtained informed consent, the scope was passed under direct vision. Throughout the procedure, the patient's blood pressure, pulse, and oxygen saturations were monitored continuously. The Colonoscope was introduced through the anus and advanced to the terminal ileum. The colonoscopy was performed without difficulty. The patient tolerated the procedure well. The quality of the bowel preparation was good. Scope In: 7:50:01 AM Scope Withdrawal Time 0 hours 8 minutes 49 seconds Scope Out: 8:01:03 AM Total Procedure Duration Time 0 hours 11 minutes 2 seconds Findings: Non-bleeding internal hemorrhoids were found during retroflexion. The hemorrhoids were Grade I (internal hemorrhoids that do not prolapse). The colon (entire examined portion) appeared normal. Patchy inflammation, moderate in severity and characterized by congestion (edema), erosions and aphthous ulcerations was found in the distal ileum and in the terminal ileum. Biopsies were taken with a cold forceps for histology. Verification of patient identification for the specimen was done. Estimated blood loss was minimal. Impression: - Non-bleeding internal hemorrhoids. - The entire examined colon is normal. - Ileitis. Biopsied. Recommendation: - Discharge patient to home. - Resume previous diet. - Continue present medications. - Await pathology results. - Repeat colonoscopy in 5 years for surveillance. Procedure Code(s): --- Professional --- 80084, Colonoscopy, flexible; with biopsy, single or multiple CPT copyright 2017 [employer]. All rights reserved. The codes documented in this report are preliminary and upon diesel locomotive firer/fireman review may be revised to meet current compliance requirements. Yung Tate DO 07/08/2022 8:13:00 AM This report has been signed electronically. Number of Addenda: 0 Note Initiated On: 07/08/2022 7:46 AM
--- NOTE | 2022-07-08 08:14 | OP.CCLET_ITS ---
07/08/2022 Jose L Houston [address] [place] [address] Re : Colonoscopy procedure for Jorge Via Dear Dr. Houston This procedure was performed on Friday, July 08, 2022. My impressions and recommendations are as follows: Impressions : - Non-bleeding internal hemorrhoids. - The entire examined colon is normal. - Ileitis. Biopsied. Recommendations : - Discharge patient to home. - Resume previous diet. - Continue present medications. - Await pathology results. - Repeat colonoscopy in 5 years for surveillance. My findings are described in the full procedure note, which is enclosed. If I can be of further assistance, please feel free to contact me at . Sincerely, Yung Friend, 07/08/2022 8:13:00 AM This report has been signed electronically.
== END 2022-07-08 08:40 | disposition home or self-care (01) ==
LOC: EN 06:25 → AC 06:26
PROVIDERS: PCP Family Medicine; Referring Provider Internal Medicine Gastroenterology; Visit Provider Internal Medicine Gastroenterology
PROC: 0DJD8ZZ Inspection of Lower Intestinal Tract, Via Natural or Artificial Opening Endoscopic (ICD-10-PCS; CPT 45378; principal; 2022-07-08 07:25)
DX: K62.5 Hemorrhage of anus and rectum (principal); K29.80 Duodenitis without bleeding; K64.0 First degree hemorrhoids; R10.84 Generalized abdominal pain; K21.00 Gastro-esophageal reflux disease with esophagitis, without bleeding; K29.70 Gastritis, unspecified, without bleeding; Z87.891 Personal history of nicotine dependence; R19.7 Diarrhea, unspecified
CPT/HCPCS: 45380; 43239; 82962; 88305; 88313; 88341; 88342; J7120; J2405

== ENCOUNTER → 2022-07-20 | Outpatient (CLI) | payer OTHER, SELFPAY ==
[2022-07-20 10:21] LABS: Erythrocyte Sedimentation Rate 5 mm/hr (0-20)
[2022-07-20 10:24] LABS: Absolute Neutrophil Count 2.8 X10^3/uL (2.0-7.7); Basophil# 0.02 X10^3/uL; Basophil% 0.4 % (0-1); Eosinophil# 0.04 X10^3/uL; Eosinophils% 0.8 % (0-5); Hematocrit 46.9 % (40-54); Hemoglobin 15.8 g/dL (13.0-16.5); Lymphocyte % 30.8 % (19-41); Mean Corp Hgb Conc 33.7 g/dL (32-36); Mean Corpuscular Hgb 31.3 pg (27.0-32.0); Mean Corpuscular Volume 92.9 fL (80-94); Mean Platelet Vol. 10.2 fl (6.2-12.0); Monocyte# 0.47 X10^3/uL; Monocyte% 9.7 % (0-10); NRBC Flagged by Analyzer 0 % (0-5); Neutrophil # 2.82 X10^3/uL (2.7-7.7); Neutrophil % 57.9 % (47-70); Platelet Count 218 K/mm3 (150-450); RBC Distribution Width SD 43.8 fl (35.1-43.9); Red Blood Count 5.05 M/mm3 (4.6-6.2); White Blood Count 4.9 K/mm3 (4.4-11.0)
[2022-07-20 11:30] LABS: ALB/GLOB Ratio 1.1 RATIO (0.9-2.4); AST(SGOT) 22 U/L (15-37); Alanine Aminotransfer ALT/SGPT 46 U/L (16-61); Alkaline Phosphatase 85 U/L (45-117); Anion Gap 11 (5-15); BUN 16 mg/dL (7-18); BUN/Creat Ratio 18.3 RATIO (10-20); CRP < 2.90 mg/L (0.0-3.0); Calcium,Total 9.4 mg/dL (8.5-10.1); Chloride 95 mmol/L (98-107); Creatinine, Serum 0.88 mg/dL (0.70-1.30); EST Glomerular Filtration Rate 99 mL/min (>60); Est Glom Filt Rate - Afr Amer 120 mL/min (>60); Globulin 3.8 g/dL (2.2-4.2); Glucose 499 mg/dL (74-106); LDH 185 U/L (87-241); Potassium 4.6 mmol/L (3.5-5.1); Protein, Total 7.8 g/dL (6.4-8.2); Sodium Level 132 mmol/L (136-145)
[2022-07-21 15:08] LABS: Anti-Centromere B Ab <0.2 AI (0.0-0.9); Anti-Chromatin <0.2 AI (0.0-0.9); Anti-Jo <0.2 AI (0.0-0.9); Anti-Scleroderma-70 AB <0.2 AI (0.0-0.9); RNP Ab 0.2 AI (0.0-0.9); SJOGREN'S Anti-SS-A test < 0.2 AI (0.0-0.9); SJOGREN'S Anti-SS-B test < 0.2 AI (0.0-0.9); Smith Ab <0.2 AI (0.0-0.9)
[2022-07-21 20:08] LABS: Anti-dsDNA Ab 1 IU/mL (0-9)
[2022-07-22 16:50] LABS: Endomysial Antibody IgA Negative (Negative); Immunoglobulin A 280 mg/dL (90-386); t-Transglutaminase IgA <2 U/mL (0-3)
[2022-07-23 19:47] LABS: Calprotectin, Stool <16 ug/g (0-120); Fats, Neutral Normal (.); Fats, Total Normal (.)
[2022-07-26 19:07] LABS: Albumin 3.7 g/dL (2.9-4.4); Alpha-1-Globulins 0.2 g/dL (0.0-0.4); Alpha-2-Globulins 1.1 g/dL (0.4-1.0); Gamma Globulin 0.9 g/dL (0.4-1.8); Immunoglobulin A 307 mg/dL (90-386); Immunoglobulin E 99 IU/mL (6-495); Immunoglobulin G 827 mg/dL (603-1613); Immunoglobulin M 51 mg/dL (20-172); PROEL- TOTAL PROTEIN 7.3 g/dL (6.0-8.5)
[2022-07-27 19:45] LABS: Cytoplasmic Ab (C-ANCA) <1:20 titer (Neg:<1:20); Perinuclear Ab (P-ANCA) <1:20 titer (Neg:<1:20)
[2022-07-28 10:50] LABS: Pancreatic Elastase, Fecal 358 (>200)
== END | disposition home or self-care (01) ==
PROVIDERS: PCP Family Medicine; Referring Provider Nurse Practitioner Adult Health; Visit Provider Nurse Practitioner Adult Health
DX: K58.9 Irritable bowel syndrome, unspecified (principal); R19.7 Diarrhea, unspecified; K62.5 Hemorrhage of anus and rectum
CPT/HCPCS: 36415; 80053; 82653; 82705; 82784; 82785; 83516; 83615; 83630; 83993; 84165; 85025; 85652; 86140; 86225; 86235; 86255; 86256; 86334; 87177; 87209; 87493; 87506

== ENCOUNTER → 2022-08-06 | Outpatient (CLI) | payer OTHER, SELFPAY ==
[2022-08-06] VITALS (9 sets, daily range): BP systolic 92–119; BP diastolic 51–83; PULSE 81–87; RESP 12–18; TEMP 36.6; O2SAT 35–94; BMI 34.2
--- NOTE | 2022-08-06 08:00 | CT_ITS ---
PROCEDURE: CT DIRECTED CORE LIVER BIOPSY INDICATION: Male, 46 years old. Liver stiffness 27 kpa on elastography PHYSICIAN: Dr. LIS Vidal CONSENT: Written informed consent was obtained having explained the risks, benefits and alternatives in detail with the patient who accepted the risks and agreed to proceed. Laboratory review and clinical assessment was performed. CONSCIOUS SEDATION PROTOCOL: The Drugs used were: 3 mg Versed, IV., and 75 mcg Fentanyl, IV. The sedation time was: 17 minutes. Conscious sedation was started and 9:09 AM and terminated at 9:26 AM. The conscious sedation protocol was independently monitored. RADIATION DOSAGE (If Supplied By Facility): CTDIvol = ( 24.5 ) mGy, DLP = ( 764.53 ) mGycm Individualized dose optimization techniques were used for this CT. TECHNIQUE: Using CT image guidance with image documentation, a suitable location in the right lobe of the liver was identified. Using an anterior approach, puncture of the liver was uneventful with an 18-gauge core needle system. 3, 18-gauge core samples were obtained, and submitted in formalin to the pathologist for further assessment. Followup CT scan revealed no distinct sequelae. CT/Biopsy/Inj or Needle Placement IMPRESSION: 1. CT directed core needle biopsy of the liver, using CT image guidance with image documentation as described. 2. Conscious Sedation protocol utilized with independent monitoring. Electronically Signed: Lyle Marroquin MD at 9:46 EST ,
[2022-08-06 08:04] LABS: Platelet Count 194 K/mm3 (150-450)
[2022-08-06 08:12] LABS: International Normalized Ratio 0.9; Prothrombin Time (Protime)PT. 12.3 SECONDS (11.7-14.9)
[2022-08-06 08:13] LABS: Partial Thromboplast Time 26.4 Seconds (24.1-36.2)
[2022-08-06] MEDS: fentaNYL 100 MCG/2 ML Ampul IV ×2 (09:09→09:24)
[2022-08-06] MEDS: Midazolam 2 MG/2 ML Syringe IV ×2 (09:09→09:24)
[2022-08-06] MEDS: Lidocaine 2% (20 ml mdv) 20 ML Vial INFILT (09:24)
--- NOTE | 2022-08-06 09:25 | LIV_PTH ---
PATIENT: KATRINA MELVIN LOC: CT U#:[id number] AGE/SX: 46/M ROOM: RE08/06/[address]: BRITANY Marmolejo : 1975 BED: DIS: 08/06/2022 SPEC #: [id number] RECD: 08/06/22 09:55 STATUS: АЛЕКСАНДР SHANAE #: [id number] ELVIRA: 08/06/22 09:[address]: Ivy Frankel NP DEPT: SURGICAL PATHOLOGY RECD BY: Lore Gonzalez ENTERED: 08/06/22 11:20 SP TYPE: LIVER RES OTHR DR: Dr. Jose L Houston DO Tissues: Liver, NOS Procedures: PAS with Diastase (control) Trichrome (control) Special Stain Group II PAS Stain (control) Surgery Specimen Level V Retic (control) Iron Stain (control) HEADER OPERATION: CT-guided liver biopsy PRE-OP DIAGNOSIS: Liver fibrosis TISSUE SUBMITTED: Right lobe liver 18-gauge x3 MICROSCOPIC DIAGNOSIS Right lobe liver, CT-guided core biopsy: Liver parenchymal tissue with extensive macrovesicular steatosis. See microscopic description and comment. ANAYA:naveed 08/07/2022 SJ:naveed 11/18/2022 COMMENT Correlation with clinical, radiologic and laboratory findings and appropriate follow up are necessary. MICROSCOPIC DESCRIPTION Slides are reviewed. The specimen shows liver parenchymal tissue with preserved lobular architecture. Hepatocytes show extensive macrovesicular steatosis and focal glycogenation of nuclei. Lobular inflammation is not seen. Portal areas do not show significant chronic inflammation. Reticulin stain shows normal hepatic architecture. Iron stain shows absent iron. Trichrome stain does not show increased portal or periportal fibrosis. PAS stain with and without diastase do not show any abnormal accumulation of protein. All stains are performed with appropriate matched controls. GROSS DESCRIPTION Received is one container labeled with the patient's name and not further designated. The specimen consists of multiple elongated fragments of stoll soft tissue that in aggregate measure 1.0 x 0.5 x 0.1 cm. The specimen is totally submitted in one cassette. / ANAYA:naveed 08/06/2022 TC:5 CPT: 55519, 77175 x5 ADDENDUM ADDENDUM ADDENDUM ADDENDUM ADDENDUM ADDENDUM ADDENDUM ADDENDUM ADDENDUM ADDENDUM 11/18/2022 09:47 ADDENDUM 11/18/2022 09:47 ADDENDUM 11/18/2022 09:47 ADDENDUM 11/18/2022 09:47 ADDENDUM 11/18/2022 09:47 This addendum is added to incorporate an outside pathology consultation report. The case was examined at [facility] (#[id number]) and the following diagnosis was rendered. Right lobe liver, CT-guided core biopsy: Liver with mild macrovesicular steatosis, 20%. Please see complete above mentioned consultation report in EMR
--- NOTE | 2022-08-06 09:25 | LIV_PTH ---
PATIENT: KATRINA MELVIN LOC: CT U#:[id number] AGE/SX: 46/M ROOM: RE08/06/[address]: BRITANY Marmolejo : 1975 BED: DIS: 08/06/2022 SPEC #: [id number] RECD: 08/06/22 09:55 STATUS: АЛЕКСАНДР SHANAE #: [id number] ELVIRA: 08/06/22 09:[address]: Ivy Frankel NP DEPT: SURGICAL PATHOLOGY RECD BY: Lore Gonzalez ENTERED: 08/06/22 11:20 SP TYPE: LIVER RES OTHR DR: Dr. Jose L Houston DO Tissues: Liver, NOS Procedures: PAS with Diastase (control) Trichrome (control) Special Stain Group II PAS Stain (control) Surgery Specimen Level V Retic (control) Iron Stain (control) HEADER OPERATION: CT-guided liver biopsy PRE-OP DIAGNOSIS: Liver fibrosis TISSUE SUBMITTED: Right lobe liver 18-gauge x3 MICROSCOPIC DIAGNOSIS Right lobe liver, CT-guided core biopsy: Liver parenchymal tissue with extensive microvesicular steatosis. See microscopic description and comment. Adryan 08/07/2022 COMMENT Correlation with clinical, radiologic and laboratory findings and appropriate follow up are necessary. MICROSCOPIC DESCRIPTION Slides are reviewed. The specimen shows liver parenchymal tissue with preserved lobular architecture. Hepatocytes show extensive microvesicular steatosis and focal glycogenation of nuclei. Lobular inflammation is not seen. Portal areas do not show significant chronic inflammation. Reticulin stain shows normal hepatic architecture. Iron stain shows absent iron. Trichrome stain does not show increased portal or periportal fibrosis. PAS stain with and without diastase do not show any abnormal accumulation of protein. All stains are performed with appropriate matched controls. GROSS DESCRIPTION Received is one container labeled with the patient's name and not further designated. The specimen consists of multiple elongated fragments of stoll soft tissue that in aggregate measure 1.0 x 0.5 x 0.1 cm. The specimen is totally submitted in one cassette. / ANAYA:naveed 08/06/2022 TC:5 CPT: 69371, 94067 x5 ADDENDUM ADDENDUM ADDENDUM ADDENDUM ADDENDUM ADDENDUM ADDENDUM ADDENDUM ADDENDUM ADDENDUM 11/18/2022 09:47 ADDENDUM 11/18/2022 09:47 ADDENDUM 11/18/2022 09:47 ADDENDUM 11/18/2022 09:47 ADDENDUM 11/18/2022 09:47 This addendum is added to incorporate an outside pathology consultation report. The case was examined at [facility] (#[id number]) and the following diagnosis was rendered. Right lobe liver, CT-guided core biopsy: Liver with mild macrovesicular steatosis, 20%. Please see complete above mentioned consultation report in EMR
== END | disposition home or self-care (01) ==
PROVIDERS: PCP Family Medicine; Referring Provider Nurse Practitioner Adult Health; Visit Provider Nurse Practitioner Adult Health
DX: K74.00 Hepatic fibrosis, unspecified (principal)
CPT/HCPCS: 47000; 36415; 77012; 85049; 85610; 85730; 88307; 88313; 99156; J7050; A4216

== ENCOUNTER → 2022-10-19 | Outpatient (CLI) | payer OTHER, SELFPAY ==
[2022-10-19 10:55] LABS: T4 Free Direct 0.99 ng/dL (0.76-1.46); Thyroid Stim Hormone (TSH) 2.59 uIU/mL (0.358-3.74)
== END | disposition home or self-care (01) ==
LOC: MTLAB 07:32
PROVIDERS: PCP Family Medicine; Referring Provider Family Medicine; Visit Provider Family Medicine
DX: E11.9 Type 2 diabetes mellitus without complications (principal); E05.90 Thyrotoxicosis, unspecified without thyrotoxic crisis or storm
CPT/HCPCS: 36415; 83036; 84439; 84443

== ENCOUNTER 2022-12-21 16:09 | Emergency (ER) | payer OTHER, SELFPAY ==
[2022-12-21 16:10] VITALS: BP 148/80; PULSE 81; RESP 16; TEMP 36.3; O2SAT 98
[2022-12-21 16:36] VITALS: BMI 36.5
--- NOTE | 2022-12-21 16:42 | RAD_ITS ---
EXAM: XR LEFT RIBS AND AP CHEST, 3 OR MORE VIEWS CLINICAL INDICATION: left rib pain LEFT AXILLARY RIB PAIN X 1 WEEK AFTER FALL TECHNIQUE: Frontal and oblique views of the left ribs and frontal view of the chest. COMPARISON: No relevant prior studies available. FINDINGS: LUNGS AND PLEURAL SPACES: Unremarkable. No consolidation or edema. No pneumothorax. No effusion. HEART: Unremarkable. Cardiac silhouette not enlarged. MEDIASTINUM: Central airways and mediastinal contour are unremarkable. BONES/JOINTS: Unremarkable. No evidence of displaced rib fractures. RAD/Ribs Uni Min 3V w/PA Chest IMPRESSION: Negative chest and left ribs series. Electronically Signed: Burt Mazariegos MD at 17:15 EDT ,
--- NOTE | 2022-12-21 17:25 | CT_ITS ---
EXAM: CT ANGIOGRAPHY CHEST WITHOUT AND WITH INTRAVENOUS CONTRAST CLINICAL INDICATION: left sided rib and chest pain TECHNIQUE: Helically acquired angiography images were obtained of the chest without and with intravenous contrast. This CT exam was performed using one or more of the following dose reduction techniques: automated exposure control, adjustment of the mA and/or kV according to patient size, and/or use of iterative reconstruction technique. MIP reconstructed images were created and reviewed. CONTRAST: IV 100mL Isovue-370 RADIATION DOSE: CTDIvol = 24.54 mGy, DLP = 519.67 mGy-cm COMPARISON: 5.1.17 FINDINGS: PULMONARY ARTERIES: Unremarkable. No demonstrated pulmonary embolism or arterial dissection. AORTA: Unremarkable. Normal in caliber. No evidence of dissection. GREAT VESSELS OF AORTIC ARCH: Unremarkable. Normal in caliber. No evidence of dissection. LUNGS AND PLEURAL SPACES: Unremarkable. No mass. No consolidation, nodules, or edema. No pleural effusion or thickening. No pneumothorax. HEART: There are calcifications of the coronary arteries. Heart size is normal. No pericardial effusion. MEDIASTINUM: Partial fatty conversion of the noted prior thymic tissue. Stable mediastinal adenopathy. Esophagus is unremarkable. No hiatal hernia. THYROID: Unremarkable. No thyroid lesions. BONES/JOINTS: There are degenerative changes of the shoulders. There are no visible rib fractures. No suspicious lytic or blastic abnormality. SPLEEN: Enlarged spleen. OTHER FINDINGS: Post-processing of the angiographic images was performed, with axial imaging and 3D reconstruction. MIPS images were obtained. CT/CTA Chest W/WO Contrast IMPRESSION: 1. No demonstrated pulmonary embolism or arterial dissection. 2. Enlarged spleen. 3. There are no visible rib fractures. 4. There are calcifications of the coronary arteries. Electronically Signed: Burt Mazariegos MD at 18:42 EDT ,
[2022-12-21 17:49] LABS: Hematocrit 45.5 % (40-54); Hemoglobin 14.7 g/dL (13.0-16.5); Mean Corp Hgb Conc 32.3 g/dL (32-36); Mean Corpuscular Hgb 29.8 pg (27.0-32.0); Mean Corpuscular Volume 92.3 fL (80-94); Mean Platelet Vol. 9.1 fl (6.2-12.0); Platelet Count 232 K/mm3 (150-450); RBC Distribution Width CV 13.6 % (11.6-14.6); RBC Distribution Width SD 45.8 fl (35.1-43.9); Red Blood Count 4.93 M/mm3 (4.6-6.2); White Blood Count 6.3 K/mm3 (4.4-11.0)
[2022-12-21 18:04] LABS: Anion Gap 5 (5-15); BUN 24 mg/dL (7-18); BUN/Creat Ratio 30.3 RATIO (10-20); Calcium,Total 9.3 mg/dL (8.5-10.1); Chloride 104 mmol/L (98-107); Creatinine, Serum 0.79 mg/dL (0.70-1.30); EST Glomerular Filtration Rate 111 mL/min (>60); Est Glom Filt Rate - Afr Amer 135 mL/min (>60); Estimated Creatinine Clearance 141.92 ml/min; Glucose 159 mg/dL (74-106); Potassium 4.1 mmol/L (3.5-5.1); Sodium Level 138 mmol/L (136-145)
--- NOTE | 2022-12-21 18:44 | ED.VIS.FALL ---
HPI HPI - Fall History of Present Illness Chief Complaint: [facility] History (Updated 12/21/22 @ 18:[address] Donis Salgado, DO) Arthritis Barretts esophagus Cardiology follow-up encounter Combined systolic and diastolic cardiac dysfunction Contusion of left knee, initial encounter Diabetes mellitus Diastolic dysfunction with heart failure DVT (deep venous thrombosis) DVT of leg (deep venous thrombosis) Essential (primary) hypertension Fatty liver Former smoker Hemorrhage of anus and rectum History of CHF (congestive heart failure) History of echocardiogram History of edema History of GI bleed History of stress test History of TIA (transient ischemic attack) Idiopathic cardiomyopathy Idiopathic cardiomyopathy Injury of back Injury of head and neck Leg cramps Medial meniscus tear Other internal derangements of left knee Other tear of lateral meniscus, current injury, left knee, subsequent encounter Other tear of medial meniscus, current injury, left knee, subsequent encounter Pain of left knee after injury Pulmonary embolism (07/2016) Rotator cuff arthropathy of left shoulder Shortness of breath on exertion Thyroid disease Thyroid nodule Type 2 diabetes mellitus Home Medications enoxaparin 150 mg/mL subcutaneous syringe 135 mg subcut Q12@0600,1800 12/10/17 [History Last Taken 08/03/22] methimazole 5 mg tablet 7.5 mg PO DAILY 12/10/17 [History Last Taken 03/04/18] cholecalciferol (vitamin D3) 125 mcg (5,000 unit) capsule 5,000 unit PO DAILY 04/24/18 [History Last Taken Unknown] multivitamin 1 ea PO DAILY 04/24/18 [History Last Taken Unknown] furosemide 40 mg tablet (Lasix) 40 mg PO BID #180 tabs 08/09/18 [Rx Last Taken Unknown] spironolactone 25 mg tablet 25 mg PO DAILY #90 tabs 09/08/18 [Rx Last Taken Unknown] citalopram 20 mg tablet (Celexa) 20 mg PO DAILY #60 tabs 12/01/18 [Rx Last Taken Unknown] empagliflozin 10 mg tablet (Jardiance) 10 mg PO DAILY 02/19/22 [History Last Taken Unknown] carvedilol 12.5 mg tablet 50 mg PO BID 07/06/22 [History Last Taken 07/08/22] sacubitril 97 mg-valsartan 103 mg tablet (Entresto) 1 tab PO BID 07/06/22 [History Last Taken 07/08/22] liraglutide 0.6 mg/0.1 mL (18 mg/3 mL) subcutaneous pen injector (Victoza 2-Ben) 1.8 mg subcut DAILY 08/06/22 [History Last Taken Unknown] pantoprazole 40 mg tablet,delayed release 40 mg PO QAM #90 tabs 09/18/22 [Rx Last Taken Unknown] Allergy/AdvReac Type Severity Reaction Status Date / Time codeine Allergy Other Verified 12/21/22 16:10 metformin Allergy Abd Verified 12/21/22 16:10 cramps/diarrhea perflutren [From Definity] AdvReac Pain in Verified 12/21/22 16:10 joints Family History Father Hypertension Diabetes Mother Hypertension Diabetes Surgical History History of cardiac catheterization History of left heart catheterization (03/04/18) Partially torn MCL torn cartilage behind knee Torn meniscus Torn PCL Social History Smoking Status: Former smoker how long ago did patient quit smokin, 2pks/day second hand exposure: Yes alcohol intake: current alcohol intake frequency: a few times a month substance use type: does not use EXAM Physical Exam Const Vital Signs: 12/21/22 16:10 12/21/22 16:39 12/21/22 19:05 Temperature 97.3 F L Temperature Source Temporal Pulse Rate 81 76 Respiratory Rate 16 16 Respiratory Effort Normal Respiratory Depth Normal Blood Pressure 148/80 H Blood Pressure Mean 102 Pulse Ox 98 Oxygen Delivery Method Room Air [facility] MDM Narrative Medical decision making narrative: HISTORY OF PRESENT ILLNESS: 47-year-old male here with left-sided rib pain after fall. States he is not concerned but rib fracture states is more concerned about a PE. States has been compliant with Lovenox. Denies any syncope. Unilateral leg swelling. REVIEW OF SYSTEMS: Pertinent positives: Left-sided rib pain Pertinent negatives: Syncope PHYSICAL EXAM: Nursing triage notes reviewed, Vital signs reviewed Constitutional: please see mdm HENT: MMM Eyes: Pupils equal round and reactive to light, Extraocular muscles intact Neck: No stridor, no JVD, full neck ROM Lungs: Clear to auscultation, No wheezing or rales. No increased work of breathing, no conversational dyspnea, no accessory muscle use, no nasal flaring. No respiratory distress noted. No crepitus to chest, no bruising Heart: Regular rate and rhythm, No murmurs, No rubs and No gallops, 2+ distal pulses (radial, femoral, posterior tibial) in all extremities Abdomen: Soft, there is no tenderness, rigidity, rebound or guarding, no obvious peritoneal signs, no palpable pulsatile abdominal masses, no auscultated abdominal bruit : No CVAT Extremities: No edema Neuro: No focal neurological deficits, cranial nerves II through XII intact, 5/5 strength in all extremities. Intact sensation to light touch in all extremities, 2+ reflexes bilateral patella tendons. Normal gait. No ataxia. Skin: No rash or lesions noted MEDICAL DECISION MAKING: Chief Complaint: Left-sided rib pain External records reviewed: Last CT of the chest in July 2021 Factors affecting care: DVT, PE on Lovenox Social determinants of health: none History obtained from others: The patient's Consults: none ALL IMAGES (IF OBTAINED) HAVE BEEN PERSONALLY REVIEWED AND INTERPRETED BY MYSELF. CBC without leukocytosis, severe anemia, no thrombocytopenia. BMP without evidence of significant electrolyte abnormalities, no anion gap, no acute kidney injury. MDM Narrative: 47-year-old male here with left-sided rib pain after fall. I considered the following differential diagnosis: PE, rib fracture, pneumonia X-ray was negative for rib fracture which prompted further investigation rule out PE. CTA of the chest was negative for PE. The patient appropriate discharge home with a diagnosis of rib contusion. The patient and/or family, caregivers express understanding. The patient and/or family, caregivers agrees with the plan. Total critical care time today provided was at least 0 minutes. This excludes separately billable procedures. Critical care time (if documented) is secondary to the patient having high probability of clinically significant/life threatening deterioration in the patient's condition which required my urgent intervention. Shared decision making: I will have a discussion with the patient and or visitors regarding risk/benefits of further testing or admission. They will be made aware of of the risk/benefits inherent in this decision they will be given the opportunity to voice understanding. Lab Data Attestation: I reviewed the patient's lab results. Labs: Laboratory Results - last 24 hr 12/21/22 17:38 WBC 6.3 RBC 4.93 Hgb 14.7 Hct 45.5 MCV 92.3 MCH 29.8 MCHC 32.3 RDW Std Deviation 45.8 H RDW Coeff of [place] 13.6 Plt Count 232 MPV 9.1 Sodium 138 Potassium 4.1 Chloride 104 Carbon Dioxide 29.0 Anion Gap 5 BUN 24 H Creatinine 0.79 Estim Creat Clear Calc 141.92 Est GFR (MDRD) Af Amer 135 Est GFR (MDRD) Non-Af 111 BUN/Creatinine Ratio 30.3 H Glucose 159 H Calcium 9.3 Radiography Diagnostic Testing: Clinical Impression(s) from Imaging Studies Ribs w/Chest X-Ray 12/21/22 16:42 IMPRESSION: Negative chest and left ribs series. Electronically Signed: Burt Mazariegos MD at 17:15 EDT , Chest CTA 12/21/22 17:25 IMPRESSION: 1. No demonstrated pulmonary embolism or arterial dissection. 2. Enlarged spleen. 3. There are no visible rib fractures. 4. There are calcifications of the coronary arteries. Electronically Signed: Burt Mazariegos MD at 18:42 EDT , X-rays ribs, x-ray the chest was personally viewed by myself and shows no evidence of acute rib fracture dislocation pneumothorax Discharge Plan Triage Chief Complaint: Fall ED Provider: Donis Salgado Dx/Rx/DC Orders Clinical Impression: Contusion of rib Instructions: Bone Contusion Prescriptions: No Action furosemide [Lasix] 40 mg tablet 40 mg PO BID Qty: 180 6RF citalopram [Celexa] 20 mg tablet 20 mg PO DAILY Qty: 60 3RF Jardiance 10 mg tablet 10 mg PO DAILY enoxaparin 150 MG/ML syringe 135 mg SC Q12@0600,1800 methimazole 5 MG tablet 7.5 mg PO DAILY multivitamin 1 EACH tablet 1 ea PO DAILY cholecalciferol (vitamin D3) 5,000 UNIT capsule 5,000 unit PO DAILY Entresto 97-103 mg tablet 1 tab PO BID carvedilol 12.5 mg tablet 50 mg PO BID Rx Instructions: give with food (meal/snack) Victoza 2-Ben 0.6 mg/0.1 mL (18 mg/3 mL) Pen Injector 1.8 mg SUBCUT DAILY spironolactone 25 mg tablet 25 mg PO DAILY Qty: 90 1RF pantoprazole 40 mg tablet,delayed release (DR/EC) 40 mg PO QAM Qty: 90 3RF Primary Care Provider: Jose L Houston Referrals: Jose L Houston DO [Primary Care Provider] - Activity Restrictions/Additional Instructions: Thank you for trusting us with your care today! Please take Tylenol (2 pills, 650 mg), ibuprofen (2 pills, 400 mg) every 6 hours as needed for pain and fever control. Please return to the emergency department if your symptoms change or worsen. Specifically develop chest pain, you lose consciousness, you develop worsening shortness of breath. If you hit your head or develop any bleeding please return immediately since you are on a blood thinner Please use provided symptom spirometer at least 10 times per day to encourage full lung inflation and to discourage pneumonia. Please follow with your primary care physician for further outpatient evaluation and management. Disposition Disposition: Home, Self Care Discharge Date/Time: 12/21/22 19:06
[2022-12-21 19:05] VITALS: PULSE 76; RESP 16
== END 2022-12-21 19:06 | disposition home or self-care (01) ==
PROVIDERS: Emergency Provider Emergency Medicine; PCP Family Medicine; Visit Provider Emergency Medicine
DX: S20.212A Contusion of left front wall of thorax, initial encounter (principal); I11.0 Hypertensive heart disease with heart failure; I50.42 Chronic combined systolic (congestive) and diastolic (congestive) heart failure; Z87.891 Personal history of nicotine dependence; W19.XXXA Unspecified fall, initial encounter; Z86.718 Personal history of other venous thrombosis and embolism; Z79.01 Long term (current) use of anticoagulants; E07.9 Disorder of thyroid, unspecified; Z79.899 Other long term (current) drug therapy; Z79.85 Long-term (current) use of injectable non-insulin antidiabetic drugs
CPT/HCPCS: 71101; 71275; 80048; 85027; 99284; Q9967; A4216

== ENCOUNTER → 2023-01-15 | Outpatient (CLI) | payer OTHER, SELFPAY ==
[2023-01-15 08:07] LABS: Prothrombin Time (Protime)PT. 13.2 SECONDS (11.7-14.9)
[2023-01-15 08:08] LABS: Partial Thromboplast Time 39.7 Seconds (24.1-36.2)
[2023-01-15 08:09] LABS: Absolute Lymphocyte Count 2.16 X10^3/uL (0.83-4.51); Basophil# 0.02 X10^3/uL; Basophil% 0.3 % (0-1); Eosinophil# 0.09 X10^3/uL; Eosinophils% 1.3 % (0-5); Hematocrit 46.4 % (40-54); Hemoglobin 15.4 g/dL (13.0-16.5); Lymphocyte # 2.16 X10^3/ul (0.83-4.51); Lymphocyte % 31.6 % (19-41); Mean Corp Hgb Conc 33.2 g/dL (32-36); Mean Corpuscular Hgb 29.9 pg (27.0-32.0); Mean Corpuscular Volume 90.1 fL (80-94); Mean Platelet Vol. 9.6 fl (6.2-12.0); Monocyte# 0.57 X10^3/uL; Monocyte% 8.3 % (0-10); NRBC Flagged by Analyzer 0 % (0-5); Neutrophil # 3.97 X10^3/uL (2.7-7.7); Neutrophil % 58.1 % (47-70); Platelet Count 222 K/mm3 (150-450); RBC Distribution Width CV 13.3 % (11.6-14.6); RBC Distribution Width SD 43.9 fl (35.1-43.9); Red Blood Count 5.15 M/mm3 (4.6-6.2); White Blood Count 6.8 K/mm3 (4.4-11.0)
[2023-01-15 08:40] LABS: AST(SGOT) 22 U/L (15-37); Alanine Aminotransfer ALT/SGPT 46 U/L (16-61); Albumin, Serum 3.8 g/dL (3.2-5.0); Alkaline Phosphatase 84 U/L (45-117); Anion Gap 7 (5-15); BUN 28 mg/dL (7-18); BUN/Creat Ratio 35.3 RATIO (10-20); Bilirubin, Direct 0.11 mg/dL (0.00-0.30); Chloride 104 mmol/L (98-107); Creatinine, Serum 0.79 mg/dL (0.70-1.30); EST Glomerular Filtration Rate 111 mL/min (>60); Est Glom Filt Rate - Afr Amer 134 mL/min (>60); Globulin 3.7 g/dL (2.2-4.2); Glucose 206 mg/dL (74-106); Potassium 3.8 mmol/L (3.5-5.1); Protein, Total 7.5 g/dL (6.4-8.2); Sodium Level 137 mmol/L (136-145)
[2023-01-16 04:07] LABS: AFP, Tumor Marker < 1.8 ng/mL (0.0-6.9)
== END | disposition home or self-care (01) ==
PROVIDERS: PCP Family Medicine
DX: K75.81 Nonalcoholic steatohepatitis (NASH) (principal); K74.60 Unspecified cirrhosis of liver
CPT/HCPCS: 36415; 80048; 80076; 82105; 85025; 85610; 85730

== ENCOUNTER → 2023-04-21 | Outpatient (CLI) | payer OTHER, SELFPAY ==
[2023-04-21 10:39] LABS: Absolute Lymphocyte Count 1.85 X10^3/uL (0.83-4.51); Absolute Neutrophil Count 4.3 X10^3/uL (2.0-7.7); Basophil# 0.03 X10^3/uL; Basophil% 0.4 % (0-1); Eosinophil# 0.08 X10^3/uL; Eosinophils% 1.2 % (0-5); Hematocrit 45.4 % (40-54); Hemoglobin 15.3 g/dL (13.0-16.5); Lymphocyte # 1.85 X10^3/ul (0.83-4.51); Lymphocyte % 26.7 % (19-41); Mean Corp Hgb Conc 33.7 g/dL (32-36); Mean Corpuscular Hgb 30.4 pg (27.0-32.0); Mean Corpuscular Volume 90.1 fL (80-94); Mean Platelet Vol. 9.7 fl (6.2-12.0); Monocyte# 0.61 X10^3/uL; Monocyte% 8.8 % (0-10); NRBC Flagged by Analyzer 0 % (0-5); Neutrophil # 4.34 X10^3/uL (2.7-7.7); Neutrophil % 62.6 % (47-70); Platelet Count 262 K/mm3 (150-450); RBC Distribution Width CV 14.2 % (11.6-14.6); RBC Distribution Width SD 46.5 fl (35.1-43.9); Red Blood Count 5.04 M/mm3 (4.6-6.2); White Blood Count 6.9 K/mm3 (4.4-11.0)
[2023-04-21 10:57] LABS: Prothrombin Time (Protime)PT. 13.1 SECONDS (11.7-14.9)
[2023-04-21 10:58] LABS: Partial Thromboplast Time 35.4 Seconds (24.1-36.2)
[2023-04-21 11:34] LABS: AST(SGOT) 14 U/L (15-37); Alanine Aminotransfer ALT/SGPT 26 U/L (16-61); Alkaline Phosphatase 81 U/L (45-117); Anion Gap 10 (5-15); BUN 21 mg/dL (7-18); BUN/Creat Ratio 26.2 RATIO (10-20); Bilirubin, Direct 0.15 mg/dL (0.00-0.30); Calcium,Total 8.6 mg/dL (8.5-10.1); Chloride 104 mmol/L (98-107); EST Glomerular Filtration Rate 110 mL/min (>60); Est Glom Filt Rate - Afr Amer 133 mL/min (>60); Globulin 3.2 g/dL (2.2-4.2); Glucose 210 mg/dL (74-106); Potassium 3.7 mmol/L (3.5-5.1); Protein, Total 7.2 g/dL (6.4-8.2); Sodium Level 137 mmol/L (136-145)
[2023-04-22 04:07] LABS: AFP, Tumor Marker < 1.8 ng/mL (0.0-6.9)
== END | disposition home or self-care (01) ==
PROVIDERS: PCP Family Medicine
DX: K75.81 Nonalcoholic steatohepatitis (NASH) (principal); K74.60 Unspecified cirrhosis of liver
CPT/HCPCS: 36415; 80048; 80076; 82105; 85025; 85610; 85730

== ENCOUNTER 2023-04-30 17:09 | Emergency (ER) | payer OTHER, SELFPAY ==
[2023-04-30 17:11] VITALS: BP 102/76; PULSE 89; RESP 14; TEMP 36.8; O2SAT 98; BMI 35.4
--- NOTE | 2023-04-30 19:15 | RAD_ITS ---
EXAM: XR RIGHT FOOT COMPLETE, 3 OR MORE VIEWS CLINICAL INDICATION: great toe wound TECHNIQUE: Frontal, lateral and oblique views of the right foot. COMPARISON: No relevant prior studies available. FINDINGS: BONES/JOINTS: Unremarkable. No acute fracture. No subluxation. Normal alignment. Preservation of the joint space. No sclerotic or destructive changes observed. SOFT TISSUES: There is mild soft tissue swelling over the first toe. No radiopaque foreign body. RAD/Foot min 3 Views IMPRESSION: Soft tissue swelling of the first toe. There are no osseous abnormalities. Electronically Signed: Pérez Jimenez MD at 19:53 EST ,
[2023-04-30 19:31] LABS: Absolute Lymphocyte Count 2.58 X10^3/uL (0.83-4.51); Absolute Neutrophil Count 5.5 X10^3/uL (2.0-7.7); Basophil# 0.03 X10^3/uL; Basophil% 0.3 % (0-1); Eosinophil# 0.08 X10^3/uL; Eosinophils% 0.9 % (0-5); Hematocrit 43.7 % (40-54); Hemoglobin 14.4 g/dL (13.0-16.5); Lymphocyte # 2.58 X10^3/ul (0.83-4.51); Lymphocyte % 28.8 % (19-41); Mean Corpuscular Hgb 29.4 pg (27.0-32.0); Mean Corpuscular Volume 89.4 fL (80-94); Mean Platelet Vol. 9.4 fl (6.2-12.0); Monocyte# 0.74 X10^3/uL; Monocyte% 8.3 % (0-10); NRBC Flagged by Analyzer 0 % (0-5); Neutrophil # 5.49 X10^3/uL (2.7-7.7); Neutrophil % 61.4 % (47-70); Platelet Count 231 K/mm3 (150-450); RBC Distribution Width CV 14.1 % (11.6-14.6); RBC Distribution Width SD 45.9 fl (35.1-43.9); Red Blood Count 4.89 M/mm3 (4.6-6.2)
--- NOTE | 2023-04-30 19:34 | EDS_ITS ---
HPI History of Present Illness Chief Complaint: Wound Informant: patient and spouse/S.O. 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 Patient states this summer in December he stubbed his toe and had some bruising at the base of the nail. The nail came off and he had some issues with infection but it was treated. He had chronic bruise at the very tip of his toe but it had improved significantly and had been improving. He actually saw his PCP has been managing it 1 week ago he was happy with how it looked. This week he was again out of bed recently felt a pop on the toe and since has had worsening bruising around the distal aspect of the nail/toe and over the past 2 days has had increased redness at the base of the nail. Today the redness started streaking up his foot and up his collazo which is progressed today alone. He notes he is been feeling a little crummy over the past few days without maybe he was tired because he recently returned to work from disability but now is not sure. Denies any fever or chills. Denies any nausea or vomiting. No other complaints at this time. [facility] Medical History Arthritis Barretts esophagus Cardiology follow-up encounter Combined systolic and diastolic cardiac dysfunction Contusion of left knee, initial encounter Diabetes mellitus Diastolic dysfunction with heart failure DVT (deep venous thrombosis) DVT of leg (deep venous thrombosis) Essential (primary) hypertension Fatty liver Former smoker Hemorrhage of anus and rectum History of CHF (congestive heart failure) History of echocardiogram History of edema History of GI bleed History of stress test History of TIA (transient ischemic attack) Idiopathic cardiomyopathy Idiopathic cardiomyopathy Injury of back Injury of head and neck Leg cramps Medial meniscus tear Other internal derangements of left knee Other tear of lateral meniscus, current injury, left knee, subsequent encounter Other tear of medial meniscus, current injury, left knee, subsequent encounter Pain of left knee after injury Pulmonary embolism (07/2016) Rotator cuff arthropathy of left shoulder Shortness of breath on exertion Thyroid disease Thyroid nodule Type 2 diabetes mellitus Home Medications enoxaparin 150 mg/mL subcutaneous syringe 135 mg subcut Q12@0600,1800 12/10/17 [History Last Taken 08/03/22] methimazole 5 mg tablet 7.5 mg PO DAILY 12/10/17 [History Last Taken 03/04/18] cholecalciferol (vitamin D3) 125 mcg (5,000 unit) capsule 5,000 unit PO DAILY 04/24/18 [History Last Taken Unknown] multivitamin 1 ea PO DAILY 04/24/18 [History Last Taken Unknown] spironolactone 25 mg tablet 25 mg PO DAILY #90 tabs 09/08/18 [Rx Last Taken Unknown] empagliflozin 10 mg tablet (Jardiance) 10 mg PO DAILY 02/19/22 [History Last Taken Unknown] carvedilol 12.5 mg tablet 50 mg PO BID 07/06/22 [History Last Taken 07/08/22] sacubitril 97 mg-valsartan 103 mg tablet (Entresto) 1 tab PO BID 07/06/22 [History Last Taken 07/08/22] pantoprazole 40 mg tablet,delayed release 40 mg PO QAM #90 tabs 09/18/22 [Rx Last Taken Unknown] furosemide 40 mg tablet (Lasix) 40 mg PO TID 04/30/23 [History Last Taken Unknown] sulfamethoxazole 800 mg-trimethoprim 160 mg tablet (Bactrim DS) 1 tab PO BID #14 tabs 04/30/23 [Rx Last Taken Unknown] tirzepatide 15 mg/0.5 mL subcutaneous pen injector (Mounjaro) 15 mg subcut .weekly 04/30/23 [History Last Taken Unknown] Allergy/AdvReac Type Severity Reaction Status Date / Time codeine Allergy Other Verified 04/30/23 17:10 metformin Allergy Abd Verified 04/30/23 17:10 cramps/diarrhea perflutren [From Definity] AdvReac Pain in Verified 04/30/23 17:10 joints Family History Father Hypertension Diabetes Mother Hypertension Diabetes Surgical History History of cardiac catheterization History of left heart catheterization (03/04/18) Partially torn MCL torn cartilage behind knee Torn meniscus Torn PCL Social History Smoking Status: Former smoker how long ago did patient quit smokin, 2pks/day second hand exposure: Yes alcohol intake: current alcohol intake frequency: a few times a month substance use type: does not use ROS ROS ED Constitutional Constitutional ED: Denies chills or fever(s) Gastrointestinal Gastrointestinal: Denies abdominal pain, nausea or vomiting Musculoskeletal Musculoskeletal: Reports other Details: Right great toe pain ; Denies arthralgias or myalgias Integumentary Reports rash and other Details: Presenting of the right distal great toe with erythema from the base of the nail now moving proximally Neurologic Neurologic: Denies paresthesias or weakness Psychiatric Psychiatric: Denies anxiety Hematologic/Lymphatic Hematologic/Lymphatic: Reports easy bleeding and easy bruising EXAM Physical Exam Const Vital Signs: 04/30/23 17:11 Temperature 98.3 F Temperature Source Temporal Pulse Rate 89 Respiratory Rate 14 Blood Pressure 102/76 Blood Pressure Mean 84 Pulse Ox 98 Oxygen Delivery Method Room Air Positive well nourished and well developed General Appearance ED: well developed and NAD HEENT Reports moist mucous membranes Chest Wall inspection of chest normal Resp normal respiratory effort Cardio regular rate and regular rhythm Cardio Narrative: 2+ DP pulse Extremity Extremity Narrative: Ecchymosis and slight swelling of the right great toe. No other deformity or edema appreciated. Neuro oriented x3, moves all extremities and no sensory deficits noted Skin Skin Narrative: Ecchymosis of the distal aspect of the right great toe with no drainage. There is thickening and callus as well as likely would also like a blood blister of the distal aspect of the right great toe. At the proximal nailbed there is some mild erythema with lymphangitic streaking going up the foot and approximately skilled nursing up the collazo on the right side. No crepitus appreciated. No draining wounds appreciated. MDM MDM MDM Narrative Medical decision making narrative: Patient is evaluated for increased pain of his right great toe that is now progressed to bruising and swelling of the distal aspect of the toe and now redness and streaking proximally up the foot. He appears nontoxic. Has no systemic symptoms at this time. Given how much erythema has developed in the last 24 hours I did obtain work-up as he is also a diabetic. Blood cell count is normal. He has a normal ESR and only minimally elevated CRP. X-ray of the foot reviewed by myself as well as radiology does not show any acute findings and no findings consistent with osteomyelitis. Physical exam is not consistent with necrotizing fasciitis. Lab work largely normal otherwise. He is mildly hyperglycemic with a glucose of 178. Patient asked has improvement of the erythema with his leg elevated while in the emergency room on repeat evaluation with no progressive changes. Is given a dose of Unasyn and will be discharged home. Has a prescription for Keflex at home. After discussion with the patient and his decision made to try to deroofed the blood blister to make sure that there is no purulent collection there. Bevel of an 18-gauge needle used to deroofed the callus on bilateral sides. Patient has bloody/purulent drainage out. This is expressed until it is straight bloody. Patient has improvement of symptoms and pressure with this. Suspect patient did have an associated paronychia in addition to the cellulitis. We will add on Bactrim. Counseled on warm compresses/soaks at home. Encouraged follow-up with podiatry. I do not think he requires admission for this especially as the purulence has been expressed at this point. They verbal ized agreement understand this plan. Discharged home in stable condition. Lab Data Attestation: I reviewed the patient's lab results. Labs: Laboratory Results - last 24 hr 04/30/23 19:25 WBC 9.0 RBC 4.89 Hgb 14.4 Hct 43.7 MCV 89.4 MCH 29.4 MCHC 33.0 RDW Std Deviation 45.9 H RDW Coeff of [place] 14.1 Plt Count 231 MPV 9.4 Immature Gran % (Auto) 0.300 Neut % (Auto) 61.4 Lymph % (Auto) 28.8 [place] % (Auto) 8.3 Eos % (Auto) 0.9 Baso % (Auto) 0.3 Absolute Neuts (auto) 5.5 Absolute Lymphs (auto) 2.58 Nucleated RBC % 0 ESR 19 PT 12.9 INR 1.0 APTT 26.6 Sodium 140 Potassium 3.5 Chloride 102 Carbon Dioxide 31.0 Anion Gap 7 BUN 18 Creatinine 0.67 L Estim Creat Clear Calc 167.34 Est GFR (MDRD) Af Amer 163 Est GFR (MDRD) Non-Af 134 BUN/Creatinine Ratio 26.8 H Glucose 178 H Calcium 8.9 C-React Prot Ext Range 11.10 H Radiography Diagnostic Testing: Clinical Impression(s) from Imaging Studies Foot X-Ray 04/30/23 19:15 IMPRESSION: Soft tissue swelling of the first toe. There are no osseous abnormalities. Electronically Signed: Pérez Jimenez MD at 19:53 EST , Discharge Plan Triage Chief Complaint: Wound ED Provider: Traci Aaron Dx/Rx/DC Orders Clinical Impression: Cellulitis of great toe, right, Paronychia of great toe, right Instructions: ED Cellulitis, ED Paronychia of the Finger or Toe Prescriptions: New sulfamethoxazole-trimethoprim [Bactrim DS] 800-160 mg tablet 1 tab PO BID Qty: 14 0RF No Action Jardiance 10 mg tablet 10 mg PO DAILY enoxaparin 150 MG/ML syringe 135 mg SC Q12@0600,1800 methimazole 5 MG tablet 7.5 mg PO DAILY multivitamin 1 EACH tablet 1 ea PO DAILY cholecalciferol (vitamin D3) 5,000 UNIT capsule 5,000 unit PO DAILY Entresto 97-103 mg tablet 1 tab PO BID carvedilol 12.5 mg tablet 50 mg PO BID Rx Instructions: give with food (meal/snack) Mounjaro 15 mg/0.5 mL pen injector 15 mg SUBCUT .weekly Patient Comments: takes on wednesday furosemide [Lasix] 40 mg tablet 40 mg PO TID Patient Comments: pt. states he has to take 40 mg twice and the other 40 mg is a prn based on his weight spironolactone 25 mg tablet 25 mg PO DAILY Qty: 90 1RF pantoprazole 40 mg tablet,delayed release (DR/EC) 40 mg PO QAM Qty: 90 3RF Primary Care Provider: Jose L Houston Referrals: Morteza Gorman DPM [Med Staff - Active Staff] - 2 Days for wound check Jose L Houston DO [Primary Care Provider] - Activity Restrictions/Additional Instructions: Take antibiotic prescribed today (Bactrim) as well as Keflex that was previously prescribed. Please follow-up with podiatry on Wednesday or Wednesday for wound check. Continue to warm soaks to help encourage further drainage. If you develop fever, worsening redness or progression of symptoms please return to the emergency room.
[2023-04-30 19:40] LABS: Partial Thromboplast Time 26.6 Seconds (24.1-36.2); Prothrombin Time (Protime)PT. 12.9 SECONDS (11.7-14.9)
[2023-04-30 19:45] LABS: Anion Gap 7 (5-15); BUN 18 mg/dL (7-18); BUN/Creat Ratio 26.8 RATIO (10-20); Calcium,Total 8.9 mg/dL (8.5-10.1); Chloride 102 mmol/L (98-107); Creatinine, Serum 0.67 mg/dL (0.70-1.30); EST Glomerular Filtration Rate 134 mL/min (>60); Est Glom Filt Rate - Afr Amer 163 mL/min (>60); Estimated Creatinine Clearance 167.34 ml/min; Glucose 178 mg/dL (74-106); Potassium 3.5 mmol/L (3.5-5.1); Sodium Level 140 mmol/L (136-145)
[2023-04-30 20:10] LABS: Erythrocyte Sedimentation Rate 19 mm/hr (0-20)
[2023-04-30] MEDS: Ampicillin/Sulbactam 3 GM in 0.9% Normal Saline (100mL MB+) 100 ML IV (20:44)
[2023-04-30] MEDS: Smz/Tmp Ds Tablet 1 TABLET PO (21:43)
[2023-04-30 22:17] VITALS: PULSE 79; RESP 16; O2SAT 97
== END 2023-04-30 22:17 | disposition home or self-care (01) ==
LOC: ED 18:33
PROVIDERS: Emergency Provider Emergency Medicine; PCP Family Medicine; Visit Provider Emergency Medicine
DX: L03.031 Cellulitis of right toe (principal); I11.0 Hypertensive heart disease with heart failure; I42.9 Cardiomyopathy, unspecified; I50.42 Chronic combined systolic (congestive) and diastolic (congestive) heart failure; E11.9 Type 2 diabetes mellitus without complications; Z87.891 Personal history of nicotine dependence; Z79.01 Long term (current) use of anticoagulants; Z86.73 Personal history of transient ischemic attack (TIA), and cerebral infarction without residual deficits; Z79.899 Other long term (current) drug therapy
CPT/HCPCS: 73630; 80048; 85025; 85610; 85652; 85730; 86140; 87070; 87077; 87186; 87205; 96365; 99283; A4216; J0295

== ENCOUNTER → 2023-05-26 | Outpatient (CLI) | payer OTHER, SELFPAY | END | disposition home or self-care (01) | PROVIDERS: PCP Family Medicine; Visit Provider Student in an Organized Health Care Education/Training Program | DX: L97.512 Non-pressure chronic ulcer of other part of right foot with fat layer exposed (principal) | CPT/HCPCS: 87070; 87205 ==

== ENCOUNTER → 2023-06-17 | Outpatient (CLI) | payer OTHER, SELFPAY ==
--- OUTSIDE RECORDS SUMMARY | 2023-06-17 16:26 | XMS RPT_ITS | CCD ---
Author Name Unknown Address [id number] [place] [address] Organization [facility] Care Team Providers Care 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 Name Role Phone Jeniffer Houston DO Primary Care Provider Fei SARAVIA, Fredy May Primary Care Provider Fei SARAVIA, Fredy May Primary Care Provider Cindy GRUBER, Jeniffer A Primary Care Provider Cindy GRUBER, Jeniffer A Primary Care Provider SELF, SELF Referring Unavailable OLIVIA BORDEN Attending Unavailable CINDY, JENIFFER A Primary Care Unavailable CINDY, JENIFFER A Primary Care Unavailable ANSHUL HERNANDEZ Attending Unavailable CINDY, JENIFFER A Referring Unavailable MENDREUBEN LWOE Attending Unavailable CINDY, JENIFFER A Referring Unavailable CINDY, JENIFFER A Primary Care Unavailable CINDY, JENIFFER A Primary Care Unavailable CINDY, JENIFFER A Primary Care Unavailable CINDY, JENIFFER A Primary Care Unavailable CINDY, JENIFFER A Primary Care Unavailable SELF, SELF Referring Unavailable CINDY, JENIFFER A Primary Care Unavailable BUTCH MANZANARES Attending Unavailable CINDY, JENIFFER A Referring Unavailable CINDY, JENIFFER A Primary Care Unavailable DANIELLE WILSONEK Attending Unavailable ANSHUL HERNANDEZ Attending Unavailable CINDY, JENIFFER A Referring Unavailable CINDY, JENIFFER A Primary Care Unavailable Allergies Allergy Classification Reported Allergen(s) Allergy Type Date of Onset Reaction(s) Facility (20 sources) Codeine Drug Allergy 6 Hives [facility] (19 sources) Perflutren Lipid Microsphere Propensity to adverse reactions to drug 9 [facility] (6 sources) Chocolate Propensity to adverse reactions 6 GI Upset [facility] Work Phone: (3 sources) Perflutren Drug Allergy 7 Other: See Comments [facility] (3 sources) metFORMIN Drug Allergy 3 Diarrhea [facility] Medications Current Medications Medication Drug Class(es) Dates Sig (Normalized) Sig (Original) carvedilol 25 mg oral tablet (20 sources) alpha-Adrenergic Michelet, beta-Adrenergic Michelet Start: 07-09-2022 take 2 tablets by mouth twice daily at mealtime carveDILOL 25 MG tablet Take 2 tablets by mouth 2 times daily with meals. 360 tablet 3 07/09/2022 Active Completed/Discontinued Medications Medication Drug Class(es) Dates Sig (Normalized) Sig (Original) 8 hr acetaminophen 650 mg extended release oral tablet (10 sources) Start: 10-15-2021 End: 09-11-2022 take 1 tablet by mouth every six hours as needed for pain acetaminophen 650 MG Tab CR Indications: S/P shoulder surgery Take 1 tablet by mouth every 6 hours as needed for Mild Pain or Moderate Pain for up to 20 days. 40 tablet 1 10/15/2021 09/11/2022 Discontinued amitriptyline hydrochloride 10 mg oral tablet (2 sources) Tricyclic Antidepressant End: 04-23-2023 Amitriptyline 10 MG tablet calcium chloride 0.0014 meq/ml / potassium chloride 0.004 meq/ml / sodium chloride 0.103 meq/ml / sodium lactate 0.028 meq/ml injectable solution (1 source) Start: 10-15-2021 End: 10-15-2021 lactated ringers IV solution cholecalciferol, vitamin D3, (VITAMIN D3 ORAL) (3 sources) take 5000 [IU] by mouth once daily cholecalciferol, vitamin D3, (VITAMIN D3 ORAL) Take 5,000 Units by mouth once daily. 0 Active Problems Active Problems Problem Classification Problem Date Documented Date Episodic/Chronic Congestive heart failure; nonhypertensive (20 sources) Chronic systolic heart failure; Translations: [Chronic systolic (congestive) heart failure] Onset: 05-11-2019 05-11-2019 Chronic Diabetes mellitus with complications (17 sources) Type 2 diabetes mellitus; Translations: [Type 2 diabetes mellitus with hyperglycemia] Onset: 10-07-2021 Chronic Diabetes mellitus without complication (3 sources) Diabetes mellitus; Translations: [Type 2 diabetes mellitus without complications] Onset: 07-23-2010 10-21-2016 Chronic Esophageal disorders (3 sources) Gastroesophageal reflux disease; Translations: [Gastro-esophageal reflux disease without esophagitis] Onset: 09-18-2005 07-23-2010 Chronic Hepatitis (4 sources) Cirrhosis - non-alcoholic; Translations: [Nonalcoholic steatohepatitis (WILSON)] Onset: 10-23-2022 Chronic Other liver diseases (2 sources) Unspecified cirrhosis of liver; Translations: [Unspecified cirrhosis of liver] Onset: 10-23-2022 Chronic Other non-traumatic joint disorders (3 sources) Shoulder pain; Translations: [Pain in left shoulder] Episodic Other non-traumatic joint disorders (1 source) Chronic pain of right upper limb; Translations: [Pain in right shoulder] Episodic Other nutritional; endocrine; and metabolic disorders (19 sources) Obese class I; Translations: [Obesity, unspecified] Onset: 12-29-2018 12-29-2018 Chronic Other nutritional; endocrine; and metabolic disorders (3 sources) Obesity; Translations: [Obesity, unspecified] Onset: 09-18-2005 07-23-2010 Chronic Bria-; endo-; and myocarditis; cardiomyopathy (except that caused by tuberculosis or sexually transmitted disease) (20 sources) Dilated cardiomyopathy; Translations: [Dilated cardiomyopathy] Onset: 05-11-2019 05-11-2019 Chronic Pulmonary heart disease (4 sources) Saddle embolus of pulmonary artery; Translations: [Saddle embolus of pulmonary artery with acute cor pulmonale] Onset: 10-21-2016 10-21-2016 Chronic Residual codes; unclassified (1 source) History of operative procedure on shoulder; Translations: [Other specified postprocedural states] Episodic Sprains and strains (2 sources) Traumatic rupture of rotator cuff; Translations: [Strain of muscle(s) and tendon(s) of the rotator cuff of left shoulder, initial encounter] Episodic Unclassified (1 source) Hepatic fibrosis, unspecified; Translations: [Hepatic fibrosis, unspecified] Onset: 09-08-2022 Past or Other Problems Problem Classification Problem Date Documented Date Episodic/Chronic Immunizations and screening for infectious disease (3 sources) Mantoux: positive; Translations: [Nonspecific reaction to tuberculin skin test without active tuberculosis] Onset: 07-23-2010 07-23-2010 Episodic Other lower respiratory disease (19 sources) Dyspnea; Translations: [Shortness of breath] Onset: 05-11-2019 05-11-2019 Episodic Other screening for suspected conditions (not mental disorders or infectious disease) (3 sources) Thyroid function tests abnormal; Translations: [Other specified abnormal findings of blood chemistry] Onset: 01-20-2011 01-20-2011 Episodic Residual codes; unclassified (2 sources) Other specified postprocedural states; Translations: [Other specified postprocedural states] Onset: 05-22-2022 Episodic Unclassified (5 sources) Onset: 10-15-2021 10-15-2021 Unclassified (1 source) Hepatic fibrosis, unspecified; Translations: [Hepatic fibrosis, unspecified] Onset: 09-08-2022 Results Test Name Value Interpretation Reference Range Facil ity Vital Signs Date Time Vital Sign Value Performing Clinician Facility 04-23-2023 14:040 Body height 193 cm Olivia FREED Work Phone: [facility] 04-23-2023 14:11040 Body mass index (BMI) [Ratio] 35.86 kg/m2 Olivia FREED Work Phone: [facility] 04-23-2023 14:11040 Body temperature 97.3 [degF] Olivia FREED Work Phone: [facility] 04-23-2023 14:11040 Body weight 133.63 kg Olivia FREED Work Phone: [facility] 04-23-2023 14:11040 Diastolic blood pressure 72 mm[Hg] Olivia FREED Work Phone: [facility] 04-23-2023 14:11040 Heart rate 55 /min Olivia FREED Work Phone: [facility] 04-23-2023 14:11-0400 Respiratory rate 16 /min Olivia Borden DENTAL OFFICE COORDINATOR-[employer] Work Phone: [facility] 04-23-2023 14:110400 SaO2% (BldA) [Mass fraction] 97 % Olivia Borden DENTAL OFFICE COORDINATOR-[employer] Work Phone: [facility] 04-23-2023 14:11-0400 Systolic blood pressure 100 mm[Hg] Olivia Borden DENTAL OFFICE COORDINATOR-[employer] Work Phone: [facility] 04-23-2023 10:120400 Diastolic blood pressure 62 mm[Hg] Anshul Hernandez MD Work Phone: [facility] 04-23-2023 10:120400 Heart rate 86 /min Anshlu Hernandez MD Work Phone: [facility] 04-23-2023 10:12-0400 Systolic blood pressure 107 mm[Hg] Anshul Hernandez MD Work Phone: [facility] 04-23-2023 10:110400 Body height 193 cm Anshul Hernandez MD Work Phone: [facility] 04-23-2023 10:11-0400 Body mass index (BMI) [Ratio] 35.42 kg/m2 Anshul Hernandez MD Work Phone: [facility] 04-23-2023 10:11-0400 Body weight 132 kg Anshul Hernandez MD Work Phone: [facility] 04-23-2023 10:11-0400 Respiratory rate 16 /min Anshul Hernandez MD Work Phone: [facility] 04-23-2023 10:11-0400 SaO2% (BldA) [Mass fraction] 98 % Anshul Hernandez MD Work Phone: [facility] 10-23-2022 08:38-0400 Body height 193 cm Reuben Wilson MD Work Phone: [facility] 10-23-2022 08:38-0400 Body mass index (BMI) [Ratio] 37.61 kg/m2 Reuben Wilson MD Work Phone: [facility] 10-23-2022 08:38-0400 Body weight 140.16 kg Reuben Wilson MD Work Phone: [facility] 10-23-2022 08:38-0400 Diastolic blood pressure 68 mm[Hg] Reuben Wilson MD Work Phone: [facility] 10-23-2022 08:38-0400 Heart rate 74 /min Reuben Wilson MD Work Phone: [facility] 10-23-2022 08:38-0400 Respiratory rate 18 /min Reuben Wilson MD Work Phone: [facility] 10-23-2022 08:38-0400 SaO2% (BldA) [Mass fraction] 98 % Reuben Wilson MD Work Phone: [facility] 10-23-2022 08:38-0400 Systolic blood pressure 94 mm[Hg] Reuben Wilson MD Work Phone: [facility] 09-11-2022 09:25-0400 Diastolic blood pressure 51 mm[Hg] Anshul Hernandez MD Work Phone: [facility] 09-11-2022 09:25-0400 Heart rate 86 /min Anshul Hernandez MD Work Phone: [facility] 09-11-2022 09:25-0400 Systolic blood pressure 98 mm[Hg] Anshul Hernandez MD Work Phone: [facility] 09-11-2022 09:24-0400 Body height 193 cm Anshul Hernandez MD Work Phone: 8(996)027-198231 [place] [address] 09-11-2022 09:24-0400 Body mass index (BMI) [Ratio] 35.67 kg/m2 Anshul Hernandez MD Work Phone: 7(516)925-325731 [place] [address] 09-11-2022 09:24-0400 Body weight 132.9 kg Anshul Hernandez MD Work Phone: 9(498)302-0010[address] [place] [address] 09-11-2022 09:24-0400 Respiratory rate 18 /min Anshul Hernandez MD Work Phone: 6(247)396-605331 [place] [address] 09-11-2022 09:24-0400 SaO2% (BldA) [Mass fraction] 96 % Anshul Hernandez MD Work Phone: 3(415)929-873831 [place] [address] 02-20-2022 11:27-0400 Diastolic blood pressure 61 mm[Hg] Anshul Hernandez MD Work Phone: 9(546)742-770231 [place] [address] 02-20-2022 11:27-0400 Systolic blood pressure 97 mm[Hg] Anshul Hernandez MD Work Phone: 7(502)922-755831 [place] [address] 02-20-2022 11:26-0400 Body height 193 cm Anshul Hernandez MD Work Phone: 4(661)339-949531 [place] [address] 02-20-2022 11:26-0400 Body mass index (BMI) [Ratio] 34.61 kg/m2 Anshul Hernandez MD Work Phone: 1(329)584-963831 [place] [address] 02-20-2022 11:26-0400 Body weight 128.96 kg Anshul Hernandez MD Work Phone: 0(300)852-347831 [place] [address] 02-20-2022 11:26-0400 Heart rate 87 /min Anshul Hernandez MD Work Phone: 6(364)631-800131 [place] [address] 02-20-2022 11:26-0400 Respiratory rate 18 /min Anshul Hernandez MD Work Phone: [facility] 02-20-2022 11:26-0400 SaO2% (BldA) [Mass fraction] 98 % Anshul Hernandez MD Work Phone: [facility] 10-15-2021 11:15-0400 Heart rate 84 /min Butch Manzanares MD Work Phone: [facility] 10-15-2021 11:15-0400 Respiratory rate 13 /min Butch Manzanares MD Work Phone: [facility] 10-15-2021 11:15-0400 SaO2% (BldA) [Mass fraction] 97 % Butch Manzanares MD Work Phone: [facility] 10-15-2021 11:00-0400 Body temperature 98.4 [degF] Butch Manzanares MD Work Phone: [facility] 10-15-2021 11:00-0400 Diastolic blood pressure 77 mm[Hg] Butch Manzanares MD Work Phone: [facility] 10-15-2021 11:00-0400 Systolic blood pressure 128 mm[Hg] Butch Manzanares MD Work Phone: [facility] 10-15-2021 06:00-0400 Body height 193 cm Butch Manzanares MD Work Phone: [facility] 10-15-2021 06:00-0400 Body mass index (BMI) [Ratio] 36.96 kg/m2 Butch Manzanares MD Work Phone: [facility] 10-15-2021 06:00-0400 Body weight 137.71 kg Butch Manzanares MD Work Phone: [facility] 10-03-2021 12:47-0400 Body height 193 cm Lizandro FREED Work Phone: [facility] 10-03-2021 12:47-0400 Body mass index (BMI) [Ratio] 36.03 kg/m2 Lizandro Reyes DENTAL OFFICE COORDINATOR-[employer] Work Phone: [facility] 10-03-2021 12:47-0400 Body temperature 97.9 [degF] Lizandro Reyes DENTAL OFFICE COORDINATOR-[employer] Work Phone: [facility] 10-03-2021 12:47-0400 Body weight 134.26 kg Lizandro Reyes DENTAL OFFICE COORDINATOR-[employer] Work Phone: [facility] 10-03-2021 12:47-0400 Diastolic blood pressure 59 mm[Hg] Lizandro Reyes DENTAL OFFICE COORDINATOR-[employer] Work Phone: [facility] 10-03-2021 12:47-0400 Heart rate 81 /min Lizandro Reyes DENTAL OFFICE COORDINATOR-[employer] Work Phone: [facility] 10-03-2021 12:47-0400 Respiratory rate 18 /min Lizandro Reyes DENTAL OFFICE COORDINATOR-[employer] Work Phone: [facility] 10-03-2021 12:47-0400 SaO2% (BldA) [Mass fraction] 94 % Lizandro Reyes DENTAL OFFICE COORDINATOR-[employer] Work Phone: [facility] 10-03-2021 12:47-0400 Systolic blood pressure 107 mm[Hg] Lizandro Reyes DENTAL OFFICE COORDINATOR-[employer] Work Phone: [facility] 09-19-2021 11:18-0400 Body temperature 97.11 [degF] Al Winter DO Work Phone: [facility] 09-19-2021 11:18-0400 Body weight 133.81 kg Al Winter DO Work Phone: [facility] 09-19-2021 11:18-0400 Diastolic blood pressure 71 mm[Hg] Al Winter DO Work Phone: [facility] 09-19-2021 11:18-0400 Heart rate 80 /min Al Winter DO Work Phone: [facility] 09-19-2021 11:18-0400 Systolic blood pressure 116 mm[Hg] Al Winter DO Work Phone: [facility] Encounters Encounter Date Encounter Type Care Provider Facility Start: 04-23-2023 ambulatory SELF SELF Facility:[facility] Start: 04-23-2023 ambulatory [facility] Facility: [facility] Start: 04-23-2023 End: 04-23-2023 Office outpatient visit 25 minutes Olivia Borden APRN-[employer] Work Phone: Gastroenterology and Hepatology [facility] Procedures Date Procedure Procedure Detail Performing Clinician Start: 10-15-2021 Glucose measurement, blood Butch Manzanares MD Work Phone: Start: 10-15-2021 Glucose measurement, blood Butch Manzanares MD Work Phone: Start: 10-15-2021 Glucose measurement, blood Butch Manzanares MD Work Phone: Start: 10-15-2021 Glucose measurement, blood Butch Manzanares MD Work Phone: Start: 10-15-2021 Glucose measurement, blood Butch Manzanares MD Work Phone: Start: 10-15-2021 Prothrombin time Lizandro Reyes DENTAL OFFICE COORDINATOR-[employer] Work Phone: Start: 10-03-2021 Ecg routine ecg w/least 12 lds trcg only w/o i&r Lizandro Reyes DENTAL OFFICE COORDINATOR-[employer] Work Phone: Start: 09-12-2021 Radex shoulder complete minimum 2 views Butch Manzanares MD Work Phone: Start: 12-07-2019 Adult depression screening assessment Al Winter DO Work Phone: History of repair of musculotendinous cuff of shoulder S/P rotator cuff repair Burt Andrea PA-C Work Phone: History of repair of musculotendinous cuff of shoulder S/P rotator cuff repair Butch Manzanares MD Work Phone: History of repair of musculotendinous cuff of shoulder S/P rotator cuff repair Butch Manzanares MD Work Phone: History of repair of musculotendinous cuff of shoulder S/P rotator cuff repair Butch Manzanares MD Work Phone: History of repair of musculotendinous cuff of shoulder S/P rotator cuff repair Butch Manzanares MD Work Phone: Plan of Treatment Date Care Activity Detail Author Start: 04-21-2024 End: 04-21-2024 Patient encounter procedure [facility] Start: 10-29-2023 End: 10-29-2023 Telemedicine consultation with patient 10/29/2023 4:30 PM EDT Telemedicine Gastroenterology and Hepatology [facility] [address] [address] Reuben Wilson MD [address] [address] Gastroenterology [facility] Hepatology [facility] Start: 10-24-2023 Potassium [Moles/volume] in Serum or Plasma POTASSIUM [facility] Start: 10-20-2023 End: 10-20-2023 Telemedicine consultation with patient 10/20/2023 8:00 AM EDT Telemedicine [facility] [address] [place] [address] Karrie Crespo, DENTAL OFFICE COORDINATOR-[employer] [address] [place] [address] [facility] Start: 04-23-2023 End: 04-23-2023 Patient encounter procedure 04/23/2023 Office Visit Gastroenterology Reuben Wilson MD [address] [address] Gastroenterology and Hepatology [facility] Start: 04-23-2023 End: 04-23-2023 Patient encounter procedure 04/23/2023 Office Visit Cardiovascular Medicine Anshul Hernandez MD [address] [place] [address] [facility] Start: 02-19-2023 COVID-19 VACCINE () COVID-19 VACCINE () [facility] Start: 10-23-2022 End: 10-24-2023 ANTI MITOCHONDRIAL ANTIBODY [facility] Immunizations Immunization Date Immunization Notes Care Provider Fa cili 03-31-2016 influenza virus vaccine, unspecified formulation Butch Manzanares MD Work Phone: [facility] 04-07-2011 influenza virus vaccine, unspecified formulation Al Winter DO Work Phone: [facility] 04-07-2011 tetanus toxoid, redu raza diphtheria toxoid, and acellular pertussis vaccine, adsorbed Al Winter DO Work Phone: [facility] 05-18-2006 tetanus and diphther ia toxoids, adsorbed, preservative free, for adult use (2 Lf of tetanus toxoid and 2 Lf of diphtheria toxoid) Al Winter DO Work Phone: [facility] Work Phone: Payers Date Payer Category Payer Private Health Insurance KAYLEIGH KNUTSON [id number] 2022-Present [address] [place] [id number] 2022 Private Health Insurance [id number] 2021 Unknown [id number] 2019 Unknown [id number] 2018 Unknown [id number] 1975 Unknown [id number] 1975 Unknown [id number] 1975 Unknown [id number] 1975 Unknown [id number] 1975 Unknown [id number] 1975 Unknown [id number] 1975 Unknown [id number] 1975 Unknown [id number] 1975 Unknown [id number] 1975 Unknown [id number] Social History Date Type Detail Facility Start: 06-30-2019 End: 09-11-2022 Tobacco smoking status NHIS Ex-smoker [facility] End: 11-19-2001 History of tobacco use Current smoker [facility] Start: 06-30-2019 End: 04-23-2023 Cigarettes smoked current (pack per day) - Reported 1 [facility] Start: 06-30-2019 End: 09-11-2022 Tobacco use and exposure Former smokeless tobacco user [facility] End: 05-27-2008 History of tobacco use User of smokeless tobacco [facility] Start: 09-12-2021 End: 05-22-2022 Alcohol intake Current drinker of alcohol (finding) [facility] Start: 03-29-2019 History SDOH Alcohol Comment socially [facility] Start: 1975 Sex Assigned At Not on file [facility] Start: 09-02-2021 End: 09-19-2021 Exposure to SARS-CoV-2 (event) Not sure [facility] End: 11-19-2001 History of tobacco use Cigarette Smoker [facility] Work Phone: End: 05-27-2008 History of tobacco use Chews Tobacco [facility] Work Phone: Start: 09-11-2022 End: 04-23-2023 Alcohol intake Ex-drinker (finding) [facility] Start: 04-23-2023 Tobacco use panel [facility] Start: 03-28-2018 Gender identity Identifies as male gender (finding) [facility] Medical Equipment Procedure Code Equipment Code Equipment Origin al Text Equipment Identifier Dates Suture Swivelock C 19.1mm Closed Eyelet Twist In Knotless 2 - [id number] Start: 10-15-2021 Clinical Notes 09-12-2021 to 04-23-2023 Olivia Borden APRN-[employer] - 04/23/2023 3:00 PM Jana Hernandez MD - 04/23/2023 10:30 AM Jennifer Borden RN - 04/23/2023 10:30 AM EDTPsaravanan Wilson MD - 10/23/2022 9:00 AM EDT Note Date & Type Note Facility 04-23-2023 History of Present illness Narrative Clinical Care Team: -Referring Provider for today's consult: Self, Self -Primary Care Provider: Jeniffer Houston Self, Self Today, we had the pleasure of seeing your patient Katrina Melvin at the [facility] G[facility]ology[facility]ology [facility] Nutrition Clinic on 04/23/2023. Thank you for referring the patient to the [facility] Gastroenterology, Hepatology and Nutrition Clinic. If you have any questions or concerns please feel free to contact my office. Chief Complaint Patient presents with Follow-up Patient states here for follow up. Patient states not having as many symptoms as last visit History of Present Illness: Katrina Melvin is a 47 y.o. male who presents to the [facility] Hep[facility] today for follow-up regarding his diagnosis of MASLD. PMH of MASLD, Louis's Esophagus, Type II DM, Dilated cardiomyopathy with HFrEF (EF: 45% EF), Bilateral PE (on Lovenox) , Insomnia (on Amitrypline), and Hyperthyroidism (on Methimazole) To briefly review the patient's history, he was noted to have hepatic steatosis on US. This prompted a fibroscan which showed F4 Fibrosis, S3 Steatosis. He then underwent a liver biopsy which did not suggest cirrhosis, however found significant microvascular steatosis and hence was referred to the Hepatology clinic. Given discordant findings, his bx slides were reviewed by the [facility] pathologists. The interpretation showed mild macrovascular steatosis with focal sinusoidal fibrosis. No evidence of bridging fibrosis or cirrhosis. MACKENZIE with Dr. Wilson 10/23/2022 Since [facility], the patient reports he has been doing well. He has been working on weight loss and has lost about 15 lbs since October. His insulin was stopped and he was started on monjaro about 3mos ago. He has also been trying to make healthier diet choices. Otherwise, he denies signs or symptoms of worsening liver function including jaundice, pruritus, abdominal swelling, peripheral edema, gastrointestinal bleeding or mental status changes suggestive of encephalopathy. He denies any known problems with his liver in the past including any known history of elevated LFT's. He denies any family history of liver disease, family history of autoimmune conditions, significant alcohol use, drug use, homemade tattoos, needle-stick injuries, or supplements. Patient denies any current fevers, unexpected weight loss, any new visual complaints, headaches, sore throat, heartburn, dysphagia, cough, chest pain, shortness of breath, nausea, vomiting, abdominal pain, diarrhea, constipation, melena, hematochezia, dysuria, hematuria, or rashes. I have reviewed his extensive medical, surgical, family and social history and have updated medication and allergy information in the computerized patient record. Past Medical History Past Medical History: Diagnosis Date Bleeding disorder 04/10/2016 Cardiac angina Cardiomyopathy Congestive heart failure Diabetes mellitus DVT (deep venous thrombosis) 2016 Essential hypertension, benign History of blood clots 2016 heart Hyperthyroidism Pulmonary embolism 2016 TIA (transient ischemic attack) 06/2016 Vascular disease Past Surgical History Past Surgical History: Procedure Laterality Date ARTHROSCOPY SHOULDER W/ ROTATOR CUFF REPAIR Left 10/15/2021 Laterality: Left; Surgeon: Butch Manzanares MD; Location: [facility] PERIOP ARTHROSCOPY SHOULDER W/ SUBACROMIAL DECOMPRESSION/ACROMIOPLASTY ADD-ON Left 10/15/2021 Laterality: Left; Surgeon: Butch Manzanares MD; Location: [facility] PERIOP TENODESIS BICEPS LONG TENDON Left 10/15/2021 Laterality: Left; Surgeon: Butch Manzanares MD; Location: [facility] PERIOP ANKLE SURGERY Left 1992 Family History Family History Problem Relation Age of Onset Bleeding or Clotting Problems Mother Diabetes Mother Lipid Disorder Father Diabetes Father Heart Failure Maternal Grandmother Diabetes Maternal Grandmother Myocardial Infarction Maternal Grandfather Heart Disease - Other Maternal Grandfather Uterine Cancer Paternal Grandmother Diabetes Paternal Grandmother Heart Disease - Other Paternal Grandfather Myocardial Infarction Paternal Grandfather Aneurysm Neg Hx Social History Social History Socioeconomic History Marital status: Tobacco Use Smoking status: Former Packs/day: 1.00 Years: 5.00 Additional pack years: 0.00 Total pack years: 5.00 Types: Cigarettes Quit date: 11/19/2001 Years since quittin.4 Smokeless tobacco: Former Quit date: 05/27/2008 Vaping Use Vaping Use: Never used Substance and Sexual Activity Alcohol use: Not Currently Drug use: Not Currently Types: Marijuana Comment: used mairKogeto over 30 yeas ago Sexual activity: Yes Partners: Female Other Topics Concern Occupational Exposure Yes Medications Current Outpatient Medications Medication Sig carveDILOL 25 MG tablet Take 2 tablets by mouth 2 times daily with meals. Empagliflozin 10 MG tablet Take 1 tablet by mouth daily. Enoxaparin Sodium (LOVENOX SC) Inject 135 mg under the skin every 12 hours. furOSEmide 40 MG tablet Take 1 tablet by mouth 3 times daily as needed. Glucosamine HCl (GLUCOSAMINE PO) Take by mouth. METHIMAZOLE PO Take 7.5 mg by mouth daily. Mounjaro 15 MG/0.5ML Solution Pen-injector PANTOPRAZOLE SODIUM PO Take by mouth. 40mg BID sacubitril-valsartan 97-103 MG tablet Take 1 tablet by mouth 2 times daily. spironolactone 25 MG tablet Take 1 tablet by mouth daily. Vitamin D3 2000 units Cap Take 5,000 Units by mouth daily. Allergies Chocolate, Codeine, Definity [perflutren lipid microsphere], and Metformin, Immunizations Immunization History Administered Date(s) Administered COVID-19 monovalent vaccine, mRNA, Pfizer, 0.3 ML 05/29/2021 COVID-19 monovalent vaccine, mRNA, Moderna, 50 mcg/0.25 mL booster 07/04/2020, 07/31/2020 Review of Systems Constitutional: Negative for malaise/fatigue. Negative for weight loss and weight gain. Skin: Negative. Eyes: Negative. Cardiovascular: Negative. Respiratory: Negative. Gastrointestinal: Negative for nausea, vomiting, abdominal pain, diarrhea, constipation, blood in stool and melena. Musculoskeletal: Negative. Neurological: Negative. Negative for loss of consciousness. Psychiatric: Negative for memory loss. Negative for insomnia. Negative for substance abuse. Lymph/Heme: Negative Physical Exam BP 100/72 (BP Location: Left arm, BP Position: Sitting) Pulse 55 Temp 97.3 F (36.3 C) (Temporal) Resp 16 Ht 1.93 m (6' 4 ) Wt 133.6 kg (294 lb 9.6 oz) SpO2 97% BMI 35.86 kg/m Smoking Status Former Constitutional: Well developed, well nourished, in no acute distress. Oriented to person, place, and time. HEENT: Normocephalic, negative for any scleral icterus. Cardiovascular: Regular rate and rhythm, with a normal S1/S2, without any appreciable murmurs, rubs or gallops. Pulmonary: Normal breath sounds, without any appreciable crackles, wheezing or rhonchi. Abdominal: Soft, nontender, nondistended with normal bowel sounds. Negative for any appreciable hepatosplenomegaly. Extremities: No LE edema. Skin: Negative for any appreciable rashes. Psych: Negative for depression Laboratory Evaluation I have reviewed his pertinent laboratory data in the computerized patient records. Lab Results Component Value Date ALT 21 10/23/2022 AST 12 10/23/2022 INR 1.0 10/23/2022 PT 13.2 10/23/2022 Outside labs reviewed 04/21/2023 Na 137 K 3.7 Cl 104 CO2 23 BUN 21 Cr 0.80 AST 14 ALT 26 Alk Phos 81 T bili 0.90 D Bili 0.15 Albumin 4.0 WBC 6.9 Hgb 15.3 Plt 262 INR 1.0 AFP <1.8 11/13/2022 Liver Bx ([facility] read) Pathologic Diagnosis Outside Slides: [id number] (08/06/2022) A. Right Lobe Liver, CT-Guided Core Biopsy: Liver with mild macrovesicular steatosis, 20% Special stain performed at outside hospital Trichrome stain shows focal sinusoidal fibrosis Reticulin stain shows no thickening liver plates PAS with and without diastase shows no intracytoplasmic globules Iron stain is negative Ferritin 97.8 Iron 74 TIBC 3588 Iron Sat 21 Transferrin 286 JO 1:80 ASMA 1:20 AMA negative IgG 873 IgA 247 IgM 40 HBsAb positive HBsAg negative HB Core Ab total negative HCV Ab negative Imaging/Procedures EGD (06/2022) showed LA grade A esophagitis, gastritis, duodenitis Colonoscopy (06/2022) showed patchy inflammation in the TI, normal colon, small internal hemorrhoids Capsule Endoscopy (06/2022) non-specific terminal ileitis Liver biopsy (09/2022) showed microvascular steatosis with negative trichrome stain Fibroscan (05/2022) showed 27kPA (F4 fibrosis) CT A/P (05/2022) showed hepatomegaly with fatty infiltration Assessment/Plan: Katrina Melvin is a 47 y.o. male who presents for follow-up of abnormal MASLD. He underwent liver bx at [facility] d/t concern for cirrhosis on fibroscan. His bx slides were reviewed by the [facility] pathologists and the interpretation showed mild macrovascular steatosis with focal sinusoidal fibrosis. No evidence of bridging fibrosis or cirrhosis. - 04/21 LFTs normal - Recommend continued healthy lifestyle modifications through diet and exercise with a 10% reduction in weight over the next year - Recommend the hepatitis A vaccine through his PCP. He is immune to hepatitis B - Return to clinic in 6 months - Plans have been discussed with the patient and all the questions have been answered to his satisfaction. I discussed my impression and plan with the patient. The patient had the opportunity to ask all questions regarding their condition and answered those questions to the best of my ability Discussion with patient and /or family with regards to: Diagnostic results and or recommended studies Risks and benefits of management or treatment options Important of compliance with chosen treatment Risk factor reduction Patient and family education ABDIAZIZ Alejandre Hepatology Nurse Practitioner Division of Gastroenterology, Hepatology, & Nutrition [facility] Diagnoses and associated orders for this visit: ICD-10-CM 1. WILSON (nonalcoholic steatohepatitis) K75.81 documented in this encounter [facility] 04-23-2023 History of Present illness Narrative Advanced Heart Failure and Transplant Cardiology Clinic Note Katrina Melvin is a 47 y.o. male who presents to the Heart Failure / Transplant Clinic at the [facility] the [facility] on 04/23/2023 for routine evaluation and follow-up of DCM. He presents today for routine follow-up. He is doing well. Traveling a lot with family. Back to work. Currently, the following findings are pertinent: Dyspnea on exertion - no Orthopnea - no PND - no Edema - no Dizziness - no Angina - no Palpitaitons - no Syncope - no ICD shock - no Weight change - decreasing now that he is off insulin. Appetite - good Other symptoms / complaints - diabetes and hepatic issues as discussed above. ED visit / Hospitalization since last visit - no PHYSICAL EXAMINATION: Vitals: Smoking Status Former Wt Readings from Last 2 Encounters: 10/23/22 (!) 140.2 kg (309 lb) 09/11/22 132.9 kg (293 lb) Body mass index is 35.42 kg/m . BP 107/62 (BP Location: Left arm, BP Position: Standing) Pulse 86 Resp 16 Ht 1.93 m (6' 4 ) Wt 132 kg (291 lb) SpO2 98% BMI 35.42 kg/m Smoking Status Former General/Constitutional: Alert and oriented x 3; NAD. HEENT: Head: Normocephalic and atraumatic. Neck: Supple, non-tender. Cardiac: No JVD. S1 slightly decreased. S2 normal. No murmur or gallop. Pulmonary/Chest: Lungs CTA bilaterally. No wheezes, rhonchi or rales noted. Abdominal: Soft, nontender. Obese. Extremities: Warm, no edema. Peripheral Vascular Exam: Normal radial and PT pulses. Neurological: Alert and oriented x 3. No focal neurologic deficit. Psychiatric: Appropriate mood and affect for clinical situation. HF Medical and Device Therapy ACEI / ARB / ARNI: Entresto 97/103 bid Beta Michelet: carvedilol 50 mg bid MRA: spironolactone 25 mg qd SGLT2 Inh: Empagliflozin 10 mg qd Diuretic: lasix 40 mg tid Vasodilator: no Antiarrhythmic: no ICD: NA CORE MEASURES ABSTRACTOR: NA LAB and CV Test results: cMRI (10/2019) - LVEF 45% RHC (2019) - RA 3, PA 21/11 (15), PCWP 13, CO 6.7, CI 2.6 CPET (2019): Pk VO2 18 (66% predicted). VE/VCO2 27 ASSESSMENT Dilated CM --etiology unknown (idiopathic) --No FH / Genetic testing negative --nonischemic fibrosis per MRI Chronic systolic HF (HFimpEF) --NYHA class I-II / stage C --LVEF 32% 03/2018 cMRI --LVEF 35% per TTE 06/2019. --Pk VO2 18.6 (at 300 pounds) --RHC with excellent hemodynamics (see above) --MRI (10/2019) - 45% LVEF Hx of bilateral PE (2015) --had DVT lower extremity post knee injury --No hx of hypercoag state. --remains on enoxaparin T2DM --On SGLT2 inhibitor Jardiance --last HA1c - 8.7 - now on victoza / insulin Obesity --Body mass index is 35.42 kg/m . Hepatic fibrosis / ? WILSON -- per pts report of recent evaluation in [place]. --referred to [facility] to see me in one yr Remote visit with STRATEGIC MARKETING SPECIALIST in 6 mos. Anshul Hernandez M.D. Advanced Heart Failure Program Division of Cardiovascular Medicine [facility] [email or web address] ph [phone] fax [phone] Patient Education Patient education regarding the following topic(s) was provided on 04/23/2023: plan of care. -no medication changes today -follow up Karrie MONGE in 6 months-telehealth -follow up with Dr. Hernandez in 1 year Those in attendance for the education included: patient and . Barriers in providing the education included: none. The following methods were used in providing the education: explanation. [facility] handouts given included: After visit summary. The response of those in attendance was: states/identifies education topic. The following Clinical Intervention(s) occurred during today s visit: Orthostatic or Coarctation vital signs completed and Extensive teaching provided to patient and or support team regarding plan of care documented in this encounter [facility] 04-23-2023 Instructions Monica Borden RN - 04/23/2023 10:30 AM EDT The following instructions were given today: -no medication changes today -follow up Karrie MONGE in 6 months-telehealth -follow up with Dr. eHrnandez in 1 year Your after visit summary (AVS) is viewable in [facility] My Chart. Call RN if you have cardiac questions/concerns M-F 8 to 4:30 ; office # [phone], option 6, then option 2. Guidelines for home management: 1. Continue to monitor weight first thing each morning. 2. Report to the CHF CLINIC ([phone]) any significant weight change. Remember that weight change of 2-3 lbs. in 1 day or 5 lbs in a week is significant and likely represents changes in fluid status. 3. If you are taking a diuretic (such as lasix, demadex, bumex), you should also restrict all sodium intake to 2000 milligrams (2 grams) a day. Depending on your status, you may also be asked to restrict fluid intake to no more than 64 oz/2 Liters a day. If uncertain, ask the nurse or physician. 4. Regular aerobic exercise is encouraged 30 minutes a day (walking, bike, swimming, etc.). For specific exercise recommendations, ask your physician. 5. Report to CHF CLINIC any change in symptoms (chest pain, worsening shortness of breath, increased dizziness or passing out, increased palpitations or ICD shock, trouble catching breath while lying down, increased edema or abdominal bloating). Remember that even minor changes in symptoms may be important. Also report any changes in medications including over the counter medications. 6. DO NOT take NSAID's for pain (i.e, Advil, Aleve, Motrin, ibuprofen, and many more) since these may cause serious problems in those with a history of CHF. If uncertain about the medication, call us. 7. * If you have new significant or ongoing diarrhea or vomiting, please hold your diuretic (examples: furosemide/Lasix or torsemide/Demadex) and call our clinic for further instructions. Taking a diuretic (water pill) with these symptoms can worsen dehydration. If you decide to have labs/tests run outside of the [facility] and you do not hear from us 1-2 days after they are performed, you must call us to ensure we received the results. Office fax # [phone]. No news does not necessarily mean that your tests are normal, it could mean we did not get the results. For questions/updates: please provide your name with spelling, date of and question or update All calls are prioritized and responses researched, if possible, prior to calls being returned. Call Scheduling for any appointment/procedure verification or changes [phone], option 7 or [facility] Heart Schedulers at [phone], option 1. documented in this encounter [facility] 10-23-2022 History of Present illness Narrative Images from the original note were not included. Hepatology Outpatient Consultation -Referring Provider for today's consult: Jeniffer Houston DO -Primary Care Provider: Jeniffer Houston HPI: Today we had the pleasure of seeing Katrina Melvin in the Hepatology clinic. Mr. Bubba Melvin is a 47 y/o male with NAFLD, Louis's Esophagus, Type II DM, Dilated cardiomyopathy with HFrEF (EF: 45% EF), Bilateral PE (on Lovenox) , Insomnia (on Amitrypline), and Hyperthyroidism (on Methimazole) Hepatology clinic for establishment of care. To briefly review the patient's history, he was noted to have hepatic steatosis on US. This prompted a fibroscan which showed F4 Fibrosis, S3 Steatosis. He then underwent a liver biopsy which did not suggest cirrhosis, however found significant microvascular steatosis and hence was referred to the Hepatology clinic. Today, the patient states that he has overall been doing well. He denies any known problems with his liver in the past including any known history of elevated LFT's. He denies any family history of liver disease, family history of autoimmune conditions, significant alcohol use, drug use, homemade tattoos, needle-stick injuries, or supplements. The patient has had mild issues with fluid retention. He is on lasix 40mg BID and aldactone 25mg daily. He is compliant with a low-salt diet. 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 The patient also denies any abdominal pain, jaundice, abdominal distension, confusion, melena, hematochezia, or hematemesis. A 10 system review was performed and other than as mentioned in the 'History of Present Illness' section above was negative for fevers, chills, headaches, decreased hearing, visual disturbances, nasal discharge, cough, chest pain, shortness of breath, urinary frequency, light-headedness, dizziness, mood disturbances, dry eyes, dry mouth, new skin rashes, easy bruising, yellow eyes, heat nor cold intolerance. Past Medical, Surgical, Social and Family History: Past Medical History Past Medical History: Diagnosis Date Bleeding disorder 04/10/2016 Cardiac angina Cardiomyopathy Congestive heart failure Diabetes mellitus DVT (deep venous thrombosis) 2016 Essential hypertension, benign History of blood clots 2016 heart Hyperthyroidism Pulmonary embolism 2016 TIA (transient ischemic attack) 06/2016 Vascular disease PastSurgical History Past Surgical History: Procedure Laterality Date ARTHROSCOPY SHOULDER W/ ROTATOR CUFF REPAIR Left 10/15/2021 Laterality: Left; Surgeon: Butch Manzanares MD; Location: [facility] PERIOP ARTHROSCOPY SHOULDER W/ SUBACROMIAL DECOMPRESSION/ACROMIOPLASTY ADD-ON Left 10/15/2021 Laterality: Left; Surgeon: Butch Manzanares MD; Location: [facility] PERIOP TENODESIS BICEPS LONG TENDON Left 10/15/2021 Laterality: Left; Surgeon: Butch Manzanares MD; Location: [facility] PERIOP ANKLE SURGERY Left 1992 Family History Family History Problem Relation Age of Onset Bleeding or Clotting Problems Mother Diabetes Mother Lipid Disorder Father Diabetes Father Heart Failure Maternal Grandmother Diabetes Maternal Grandmother Myocardial Infarction Maternal Grandfather Heart Disease - Other Maternal Grandfather Uterine Cancer Paternal Grandmother Diabetes Paternal Grandmother Heart Disease - Other Paternal Grandfather Myocardial Infarction Paternal Grandfather Aneurysm Neg Hx Social History reports that he quit smoking about 20 years ago. His smoking use included cigarettes. He has a 5.00 pack-year smoking history. He quit smokeless tobacco use about 14 years ago. He reports that he does not currently use alcohol. He reports that he does not currently use drugs after having used the following drugs: Marijuana. He Objective: Vital Signs BP 94/68 (BP Location: Right arm, BP Position: Sitting) Pulse 74 Resp 18 Ht 1.93 m (6' 4 ) Wt (!) 140.2 kg (309 lb) SpO2 98% BMI 37.61 kg/m Smoking Status Former Physical Examination: General: Awake, alert, cooperative. Head: NC/AT ENT: No scleral icterus, moist mucus membranes. Cardiac: Regular rate, + radial pulse Lungs: Symmetric chest rise, non-labor breathing Abdomen: Soft, non-tender, non-distended Musculoskeletal: Adequate muscle mass. Neuro: No focal deficits, no asterixis. Skin: No apparent rashes Psych: Appropriate Affect. I reviewed and interpreted the following imaging studies independently, report as follows and essential to decision making today. Further justification in the plan below: EGD (06/2022) showed LA grade A esophagitis, gastritis, duodenitis Colonoscopy (06/2022) showed patchy inflammation in the TI, normal colon, small internal hemorrhoids Capsule Endoscopy (06/2022) non-specific terminal ileitis Liver biopsy (09/2022) showed microvascular steatosis with negative trichrome stain Fibroscan (05/2022) showed 27kPA (F4 fibrosis) CT A/P (05/2022) showed hepatomegaly with fatty infiltration Lab results: [facility] Nursing Assessment 09/11/2022 09/11/2022 02/20/2022 02/20/2022 10/15/2021 10/15/2021 10/15/2021 BP 98/51 102/60 97/61 111/69 - 128/77 127/71 BP Position Standing Sitting Standing Sitting - Sitting Sitting Pulse 86 78 - 87 84 82 82 Resp - 18 - 18 13 18 18 Temp - - - - - 98.4 - Temp src - - - - - Infrared - SpO2 - 96 - 98 97 95 98 WEIGHT (IN LBS) - 293 lb - 284 lb 4.8 oz - - - HEIGHT (IN INCHES) - - - - BSA (Calculated - sq m) - 2.61 m2 - 2.57 m2 - - - Report Method - - - - - - - Report Given To - - - - - - - (RETIRED/READ ONLY) Lab(s) Collected? - - - - - - - Blood Glucose - POC Device at - - - - 278 - - EKG Completed - - - - - - - No flowsheet data found. Additional Nephrology Vitals 10/15/2021 10/15/2021 10/15/2021 02/20/2022 02/20/2022 09/11/2022 09/11/2022 BP 127/71 128/77 - 111/69 97/61 102/60 98/51 BP Position Sitting Sitting - Sitting Standing Sitting Standing Pulse 82 82 84 87 - 78 86 Resp 18 18 13 18 - 18 - Temp - 98.4 - - - - - WEIGHT (IN LBS) - - - 284 lb 4.8 oz - 293 lb - Height - - - - Assessment: Mr. Bubba Melvin is a 47 y/o male with NAFLD, Louis's Esophagus, Type II DM, Dilated cardiomyopathy with HFrEF (EF: 45% EF), Bilateral PE (on Lovenox) , Insomnia (on Amitrypline), and Hyperthyroidism (on Methimazole) Hepatology clinic for establishment of care. At this time, the patient's most recent liver biopsy is suggesting significant microvascular steatosis (without any evidence of fibrosis). We will plan to obtain his liver biopsy slides for in-house review. Concern for possible methimazole-induced microvascular steatosis, though he is counseled to continue to work on his modifiable metabolic risk factors in the interim. #NAFLD #Louis's Esophagus #Type II DM #HFrEF #Bilateral PE #Hyperthyroidism (on Methimazole) Plan: -Repeat labs today and every 3 months, complete chronic liver disease workup -Obtain liver biopsy slides for in-house review -Recommend initial weight loss goal of 5-10% of total body weight through dietary changes and exercise. -The patient should be vaccinated for hepatitis A and B and Pneumovax, along with age appropriate vaccination screening. Strongly advised to refrain from any alcohol consumption. -Further recommendations to follow pending above workup Reuben Wilson MD Light Armored Reconnaissance Officer Gastroenterology, Hepatology and Nutrition [facility] Pager: [phone] 10/22/2022 10:02 PM This Liability Claims Adjuster verified the patients name and date of . documented in this encounter [facility] 10-23-2022 Instructions Reuben Wilson MD - 10/23/2022 9:00 AM EDT Please get lab work done today on your way out. I would like you to continue to repeat your liver labs every 3 months. We will need to continue to screen you for liver cancer with an US every 6 months. Your next US will be due in February. Please continue to work on diet, exercise, and controlling your diabetes. I will refer you to one of our dieticians to further discuss this with you. I would like you to attempt an approximate 10-15% weight reduction, this would be about 30-45lbs over the next year. Continue to keep up the good work with your sobriety. Drink 2-3 cups of coffee on a daily basis. Return to clinic in 6 months. documented in this encounter [facility] 09-11-2022 History of Present illness Narrative Advanced Heart Failure and Transplant Cardiology Clinic Note Katrina Melvin is a 46 y.o. male who presents to the Heart Failure / Transplant Clinic at the [facility] the [facility] on 09/11/2022 for routine evaluation and follow-up of DCM. He presents today for routine follow-up. He has no CV complaints - although he states he was not able to reduce diuretic dose, which we discussed doing after his last visit here. He remains on same meds (excellent GDMT regimen) for HFimpEF. Has had medical care locally ([place]) for gastritis, esophagitis, and hepatic fibrosis. He states that the latter was discovered as part of evaluation for the bleeding - and abd US raised questions about his liver. He had further testing (including biopsy) which revealed hepatic fibrosis and he has been referred to [facility] (10/23/22). It is also noted that his T2DM has been difficult to control, and he is now on insulin. Unfortunately, this has made it more difficult for him to lose wt. He has gained about 10 pounds since his last visit here. Currently, the following findings are pertinent: Dyspnea on exertion - no Orthopnea - no PND - no Edema - no Dizziness - no Angina - no Palpitaitons - no Syncope - no ICD shock - no Weight change - yes - gained 10 pounds since last visit 02/2022. Appetite - good Other symptoms / complaints - diabetes and hepatic issues as discussed above. ED visit / Hospitalization since last visit - no PHYSICAL EXAMINATION: Vitals: BP 98/51 (BP Location: Left arm, BP Position: Standing) Pulse 86 Resp 18 Ht 1.93 m (6' 4 ) Wt 132.9 kg (293 lb) SpO2 96% BMI 35.67 kg/m Smoking Status Former Wt Readings from Last 2 Encounters: 09/11/22 132.9 kg (293 lb) 02/20/22 129 kg (284 lb 4.8 oz) Body mass index is 35.67 kg/m . General/Constitutional: Alert and oriented x 3; NAD. HEENT: Head: Normocephalic and atraumatic. Neck: Supple, non-tender. Cardiac: No JVD. S1 slightly decreased. S2 normal. No murmur or gallop. Pulmonary/Chest: Lungs CTA bilaterally. No wheezes, rhonchi or rales noted. Abdominal: Soft, nontender. Obese. Extremities: Warm, no edema. Peripheral Vascular Exam: Normal radial and PT pulses. Neurological: Alert and oriented x 3. No focal neurologic deficit. Psychiatric: Appropriate mood and affect for clinical situation. HF Medical and Device Therapy ACEI / ARB / ARNI: Entresto 97/103 bid Beta Michelet: carvedilol 50 mg bid MRA: spironolactone 25 mg qd SGLT2 Inh: Empagliflozin 10 mg qd Diuretic: lasix 40 mg bid Vasodilator: no Antiarrhythmic: no ICD: NA CORE MEASURES ABSTRACTOR: NA LAB and CV Test results: cMRI (10/2019) - LVEF 45% RHC (2019) - RA 3, PA 21/11 (15), PCWP 13, CO 6.7, CI 2.6 ASSESSMENT Dilated CM --etiology unknown (idiopathic) --No FH / Genetic testing negative --nonischemic fibrosis per MRI Chronic systolic HF (HFimpEF) --NYHA class I-II / stage C --LVEF 32% 03/2018 cMRI --LVEF 35% per TTE 06/2019. --Pk VO2 18.6 (at 300 pounds) --RHC with excellent hemodynamics (see above) --MRI (10/2019) - 45% LVEF Hx of bilateral PE (2015) --had DVT lower extremity post knee injury --No hx of hypercoag state. --remains on enoxaparin T2DM --On SGLT2 inhibitor Jardiance --last HA1c - 8.7 - now on victoza / insulin Obesity --Body mass index is 35.67 kg/m . Hepatic fibrosis / ? [facility] -- per pts report of recent evaluation in [place]. --referred to [facility] PLAN Remains on good HF therapy, currently NYHA class I No changes and no testing indicated at this time. RTC in 8 mos Anshul Hernandez M.D. Advanced Heart Failure Program Division of Cardiovascular Medicine [facility] [email or web address] ph [phone] fax [phone] Patient Education Patient education regarding the following topic(s) was provided on 09/11/2022: plan of care. -no medication changes today -follow up with Dr. Hernandez in 8 months Those in attendance for the education included: Patient and . Barriers in providing the education included: none. The following methods were used in providing the education: explanation. [facility] handouts given included: After visit summary. The response of those in attendance was: states/identifies education topic. The following Clinical Intervention(s) occurred during today s visit: Orthostatic or Coarctation vital signs completed and Extensive teaching provided to patient and or support team regarding plan of care documented in this encounter [facility] 09-11-2022 Instructions Monica Borden RN - 09/11/2022 9:30 AM EDT Recommendations from Dr Hernandez today: -no medication changes today -follow up with Dr. Hernandez in 8 months After visit summary (AVS) is viewable in [facility] My [facility]. Send My Chart message for non-urgent inquiry or Call RN if you have cardiac questions/concerns M-F 8 to 4:30 ; office # [phone], option 6, then option 2. Guidelines for home management: 1. Continue to monitor weight first thing each morning. 2. Report to the CHF CLINIC ([phone]) any significant weight change. Remember that weight change of 2-3 lbs. in 1 day or 5 lbs in a week is significant and likely represents changes in fluid status. 3. If you are taking a diuretic (such as lasix, demadex, bumex), you should also restrict all sodium intake to 2000 milligrams (2 grams) a day. Depending on your status, you may also be asked to restrict fluid intake to no more than 64 oz/2 Liters a day. If uncertain, ask the nurse or physician. 4. Regular aerobic exercise is encouraged 30 minutes a day (walking, bike, swimming, etc.). For specific exercise recommendations, ask your physician. 5. Report to CHF CLINIC any change in symptoms (chest pain, worsening shortness of breath, increased dizziness or passing out, increased palpitations or ICD shock, trouble catching breath while lying down, increased edema or abdominal bloating). Remember that even minor changes in symptoms may be important. Also report any changes in medications including over the counter medications. 6. DO NOT take NSAID's for pain (i.e, Advil, Aleve, Motrin, ibuprofen, and many more) since these may cause serious problems in those with a history of CHF. If uncertain about the medication, call us. 7. * If you have new significant or ongoing diarrhea or vomiting, please hold your diuretic (examples: furosemide/Lasix or torsemide/Demadex) and call our clinic for further instructions. Taking a diuretic (water pill) with these symptoms can worsen dehydration. If you decide to have labs/tests run outside of the [facility] and you do not hear from us 1-2 days after they are performed, you must call us to ensure we received the results. Office fax # [phone]. No news does not necessarily mean that your tests are normal, it could mean we did not get the results. For questions/updates: please provide your name with spelling, date of and question or update All calls are prioritized and responses researched, if possible, prior to calls being returned. Call Scheduling for any appointment/procedure verification or changes [phone], option 7 or [facility] Heart Schedulers at [phone], option 1. documented in this encounter [facility] 07-01-2022 Note Addended by: Grisel HERNANDEZ on: 07/01/2022 08:17 AM Modules accepted: Orders [facility] 07-01-2022 Note Addended by: Girsel HERNANDEZ on: 07/01/2022 08:17 AM Modules accepted: Orders [facility] 07-01-2022 Miscellaneous Notes Addended by: ANSHUL HERNANDEZ on: 07/01/2022 08:17 AM Modules accepted: Orders Addended by: MARNIE ZAPATA on: 07/01/2022 08:00 AM Modules accepted: Orders Pended the [address] Hernandez to review/sign [facility] received Rx for: Entresto.Per note pt local pharmacy requested PA. Submitted PA to RX Benefits. Per Rx benefit Entresto does not require PA. Claim rejected at local pharmacy b/c it was being billed for 90 day supply. Plan only allows 30 day supplies at retail. Update to team to send back to [facility] with note on Rx that plan only allows 30 day supply. Medication Access Team coordinated the following: [facility] Clinics: Cardiology Care Coordination Non-Specialty Prescriptions: 1, 15-20 min Brenda Hinds [id number] documented in this encounter [facility] 07-01-2022 Note Addended by: MARNIE ZAPATA on: 07/01/2022 08:00 AM Modules accepted: Orders [facility] 07-01-2022 Note Addended by: MARNIE ZAPATA on: 07/01/2022 08:00 AM Modules accepted: Orders [facility] 07-01-2022 Telephone encounter Note Pended the [address] Hernandez to review/sign [facility] 06-30-2022 Telephone encounter Note [facility] received Rx for: Entresto.Per note pt local pharmacy requested PA. Submitted PA to RX Benefits. Per Rx benefit Entresto does not require PA. Claim rejected at local pharmacy b/c it was being billed for 90 day supply. Plan only allows 30 day supplies at retail. Update to team to send back to local with note on Rx that plan only allows 30 day supply. Medication Access Team coordinated the following: [facility] Clinics: Cardiology Care Coordination Non-Specialty Prescriptions: 1, 15-20 min Brenda Hinds [id number] [facility] 05-22-2022 History of Present illness Narrative Chief Complaint Patient presents with Left Shoulder - Follow-up, Condition Update 7m s/p left shoulder scope with RCR (subscap). Debridement. SAD with acrimioplasty. Biceps tenodesis (DOS 10/15/21). States that his shoulder is doing well. Still in PT 2x/wk. No new trauma. SUBJECTIVE: Katrina returns for post operative follow up. No significant limitations at this point. Still progressing with PT PHYSICAL EXAMINATION: Affected shoulder: The incisions appears healing well. he has mild tenderness upon palpation over anrterior shoulder. ROM of the affected shoulder 50/160/L1 Neurovascular exam is intact. No instability. Negative belly press, negative bear hug, negative lift off Radiographs: not indicated IMPRESSION: 7m status post left shoulder arthroscopic subscap repair. PLAN Katrina is progressing well. The diagnosis and treatment were discussed with him in detail today. Continue with therapy as instructed and follow up PRN. If there are any questions prior to this, he was instructed to contact the office. All questions were answered to the his satisfaction. He does not need new xray's upon arrival of his next appointment. documented in this encounter [facility] 03-27-2022 Miscellaneous Notes Patient cancelled his 6 mo follow up as he will be out of town and declined to reschedule at this time. documented in this encounter [facility] 03-09-2022 Note Addended by: Grisel HERNANDEZ on: 03/09/2022 12:22 PM Modules accepted: Orders [facility] 03-09-2022 Note Addended by: Grisel HERNANDEZ on: 03/09/2022 12:22 PM Modules accepted: Orders [facility] 03-09-2022 Miscellaneous Notes Addended by: ANSHUL HERNANDEZ on: 03/09/2022 12:22 PM Modules accepted: Orders Addended by: ALONA RAMIREZ on: 03/09/2022 12:21 PM Modules accepted: Orders Patient called requesting refill of lasix. Med verified from last clinic visit 02/20/22. Return to clinic 09/04/22. Medication will be refilled by e-fax after it has been approved by the attending physician. documented in this encounter [facility] 03-09-2022 Note Addended by: ALONA RAMIREZ on: 03/09/2022 12:21 PM Modules accepted: Orders [facility] 03-09-2022 Note Addended by: ALONA RAMIREZ on: 03/09/2022 12:21 PM Modules accepted: Orders [facility] 02-27-2022 Telephone encounter Note Patient called requesting refill of lasix. Med verified from last clinic visit 02/20/22. Return to clinic 09/04/22. Medication will be refilled by e-fax after it has been approved by the attending physician. [facility] 02-20-2022 History of Present illness Narrative Advanced Heart Failure and Transplant Cardiology Clinic Note Katrina Melvin is a 46 y.o. male who presents to the Heart Failure / Transplant Clinic at the [facility] the [facility] on 02/20/2022 for routine evaluation and follow-up of DCM. He presents today for routine follow-up. He has been feeling more dyspneic, and fatigued since return from vacation to [facility]. While there, he was amazingly functional, actually able to jog a mile in the heat, and did not require his usual diuretic dosing. He immediately noted return of his HF sx upon returning to [place]. He is thinking that the very low humidity in [place] was a major benefit - but he also knows there are other confounding variables related to anxiety, etc. He states that his PCP is considering additional therapy for his anxiety. He has been successful in losing some weight. He is on a program of weight loss / diet that will be sustainable for him. Currently, the following findings are pertinent: Dyspnea on exertion - yes Orthopnea - no PND - no Edema - no Dizziness - no Angina - no Palpitaitons - no Syncope - no ICD shock - no Weight change - yes - reduced almost 20 pounds since last visit. Appetite - good Other symptoms / complaints - fatigue / hypersomnolence. ED visit / Hospitalization since last visit - no PHYSICAL EXAMINATION: Vitals: BP 97/61 (BP Location: Left arm, BP Position: Standing) Pulse 87 Resp 18 Ht 1.93 m (6' 4 ) Wt 129 kg (284 lb 4.8 oz) SpO2 98% BMI 34.61 kg/m Smoking Status Former Smoker Wt Readings from Last 2 Encounters: 02/20/22 129 kg (284 lb 4.8 oz) 10/15/21 (!) 137.7 kg (303 lb 9.6 oz) Body mass index is 34.61 kg/m . General/Constitutional: Alert and oriented x 3; NAD. HEENT: Head: Normocephalic and atraumatic. Neck: Supple, non-tender. Cardiac: No JVD. S1 slightly decreased. S2 normal. No murmur or gallop. Pulmonary/Chest: Lungs CTA bilaterally. No wheezes, rhonchi or rales noted. Abdominal: Soft, nontender. Obese. Extremities: Warm, no edema. Peripheral Vascular Exam: Normal radial and PT pulses. Neurological: Alert and oriented x 3. No focal neurologic deficit. Psychiatric: Appropriate mood and affect for clinical situation. HF Medical and Device Therapy ACEI / ARB / ARNI: Entresto 97/103 bid Beta Michelet: carvedilol 50 mg bid MRA: spironolactone 25 mg qd SGLT2 Inh: Empagliflozin 10 mg qd Diuretic: lasix 40 mg bid Vasodilator: no Antiarrhythmic: no ICD: NA CORE MEASURES ABSTRACTOR: NA LAB and CV Test results: cMRI (10/2019) - LVEF 45% RHC (2019) - RA 3, PA 11/05 (15), PCWP 13, CO 6.7, CI 2.6 ASSESSMENT Dilated CM --etiology unknown (idiopathic) --No FH --nonischemic fibrosis per MRI Chronic systolic HF (HFmrEF) --NYHA class I-II / stage C --LVEF 32% 03/2018 cMRI --LVEF 35% per TTE 06/2019. --Pk VO2 18.6 (at 300 pounds) --RHC with excellent hemodynamics (see above) --MRI (10/2019) - 45% LVEF - Hx of bilateral PE (2015) --had DVT lower extremity post knee injury --No hx of hypercoag state. --remains on enoxaparin T2DM --On SGLT2 inhibitor Jardiance --last HA1c - 8.7 Obesity --Body mass index is 34.61 kg/m . --has had wt loss DISCUSSION // PLAN 1. Requires better BS control 2. Has been losing weight which is excellent. 3. We discussed no fluid restriction / and Na restriction of 2000 - 2500 mg a day 4. Remains on excellent GDMT for HFmrEF - no changes today 5. He will address anxiety therapy options with PCP. 6. We had long discussion regarding the surprisingly improved functional capacity while he was in [facility]. Concluded that there were likely multiple factors, and not secondary to the climate alone. Nevertheless, he is exploring options for moving to another low humidity area in [place]. We discussed that it would be important for him to spend some time there to determine how he feels, prior to making a move. Anshul Hernandez M.D. Advanced Heart Failure Program Division of Cardiovascular Medicine [facility] [email or web address] ph [phone] fax [phone] Patient Education Patient education regarding the following topic(s) was provided on 02/20/2022: plan of care. You do not need to have a fluid restriction Sodium restriction can be 2000-2500mg daily. Can use lasix (furosemide) as needed Continue other medications as prescribed Keep us updated on any new medications Please return to clinic with Dr Hernandez in 6 months Those in attendance for the education included: patient. Barriers in providing the education included: none. The following methods were used in providing the education: explanation. [facility] handouts given included: After visit summary. The response of those in attendance was: applies knowledge. The following Clinical Intervention(s) occurred during today s visit: Orthostatic or Coarctation vital signs completed and Extensive teaching provided to patient and or support team regarding plan of care documented in this encounter [facility] 02-20-2022 Instructions Alona Raimrez RN - 02/20/2022 11:30 AM EDT Recommendations from Dr Hernandez today: You do not need to have a fluid restriction Sodium restriction can be 2000-2500mg daily. Can use lasix (furosemide) as needed Continue other medications as prescribed Keep us updated on any new medications Please return to clinic with Dr Hernandez in 6 months After visit summary (AVS) is viewable in [facility]. Send My Chart message for non-urgent inquiry or Call RN if you have cardiac questions/concerns M-F 8 to 4:30 ; office # [phone], option 6, then option 2. Guidelines for home management: 1. Continue to monitor weight first thing each morning. 2. Report to the CHF CLINIC ([phone]) any significant weight change. Remember that weight change of 2-3 lbs. in 1 day or 5 lbs in a week is significant and likely represents changes in fluid status. 3. If you are taking a diuretic (such as lasix, demadex, bumex), you should also restrict all sodium intake to 2000 milligrams (2 grams) a day. Depending on your status, you may also be asked to restrict fluid intake to no more than 64 oz/2 Liters a day. If uncertain, ask the nurse or physician. 4. Regular aerobic exercise is encouraged 30 minutes a day (walking, bike, swimming, etc.). For specific exercise recommendations, ask your physician. 5. Report to CHF CLINIC any change in symptoms (chest pain, worsening shortness of breath, increased dizziness or passing out, increased palpitations or ICD shock, trouble catching breath while lying down, increased edema or abdominal bloating). Remember that even minor changes in symptoms may be important. Also report any changes in medications including over the counter medications. 6. DO NOT take NSAID's for pain (i.e, Advil, Aleve, Motrin, ibuprofen, and many more) since these may cause serious problems in those with a history of CHF. If uncertain about the medication, call us. 7. * If you have new significant or ongoing diarrhea or vomiting, please hold your diuretic (examples: furosemide/Lasix or torsemide/Demadex) and call our clinic for further instructions. Taking a diuretic (water pill) with these symptoms can worsen dehydration. If you decide to have labs/tests run outside of the [facility] and you do not hear from us 1-2 days after they are performed, you must call us to ensure we received the results. Office fax # [phone]. No news does not necessarily mean that your tests are normal, it could mean we did not get the results. For questions/updates: please provide your name with spelling, date of and question or update All calls are prioritized and responses researched, if possible, prior to calls being returned. Call Scheduling for any appointment/procedure verification or changes [phone], option 7 or [facility] Schedul[facility] at [phone], option 1. documented in this encounter [facility] 02-06-2022 History of Present illness Narrative Chief Complaint Patient presents with Left Shoulder - Follow-up, Condition Update 3.5m s/p left shoulder scope with RCR (subscap). Debridement. SAD with acrimioplasty. Biceps tenodesis (DOS 10/15/21). States that he is still dealing with pains from his shoulder to biceps. In PT 3x/wk. No new trauma. SUBJECTIVE: Katrina returns for post operative follow up. He reports Adequate pain control without the need for pain medication. has not returned to work. Has made progress with ROM PHYSICAL EXAMINATION: Affected shoulder: The incisions appears healing well. he has mild tenderness upon palpation over anrterior shoulder. ROM of the affected shoulder 30/140 active/L2 Neurovascular exam is intact. No instability. Negative belly press, negative bear hug Radiographs: not indicated IMPRESSION: 3.5m status post left shoulder arthroscopic subscap repair. PLAN Katrina is progressing fair. The diagnosis and treatment were discussed with him in detail today. Continue with therapy as instructed and follow up in 3months. Work on stretching then strengthening. If there are any questions prior to this, he was instructed to contact the office. All questions were answered to the his satisfaction. He does not need new xray's upon arrival of his next appointment. documented in this encounter [facility] 12-26-2021 History of Present illness Narrative Chief Complaint Patient presents with Left Shoulder - Post Op Visit 10w 2d s/p L shoulder scope with RCR (subscap), debridement, SAD with acromioplasty. biceps tenodesis (DOS 10/15/21)-- Pt is doing ok, improving. Seeing PT twice a week. SUBJECTIVE: Katrina returns for post operative follow up. He reports Adequate pain control without the need for pain medication. has not returned to work. Has been stiff, making slow progress with ROM PHYSICAL EXAMINATION: Affected shoulder: The incisions appears healing well. he has mild tenderness upon palpation over anrterior shoulder. ROM of the affected shoulder 20/110 active, 120 passive/back pocket Neurovascular exam is intact. No instability. Negative belly press, negative bear hug Radiographs: not indicated IMPRESSION: 10 week(s) status post left shoulder arthroscopic subscap repair. PLAN Katrina is progressing fair. The diagnosis and treatment were discussed with him in detail today. Continue with therapy as instructed and follow up in 6 week(s). Work on stretching then strengthening. He cannot do CPR at this point. He may begin to wean out of the sling over the next few days. If there are any questions prior to this, he was instructed to contact the office. All questions were answered to the his satisfaction. He does not need new xray's upon arrival of his next appointment. documented in this encounter [facility] 11-21-2021 History of Present illness Narrative Chief Complaint Patient presents with Left Shoulder - Post Op Visit 5w 2d s/p L shoulder scope with RCR (subscap), debridement, SAD with acromioplasty. biceps tenodesis (DOS 10/15/21)-- Pt is doing well. Going to PT. SUBJECTIVE: Katrina returns for post operative follow up. He reports Adequate pain control without the need for pain medication. has not returned to work. PT: effective. PHYSICAL EXAMINATION: Affected shoulder: The incisions appears healing well. he has mild tenderness upon palpation over anrterior shoulder. ROM of the affected shoulder 10 / 90 / not tested . Neurovascular exam is intact. No instability. Negative belly press, negative bear hug Radiographs: not indicated IMPRESSION: 6 week(s) status post left shoulder arthroscopic subscap repair. PLAN Katrina is progressing well. The diagnosis and treatment were discussed with him in detail today. Continue with therapy as instructed and follow up in 6 week(s).. He may begin to wean out of the sling over the next few days. If there are any questions prior to this, he was instructed to contact the office. All questions were answered to the his satisfaction. He does not need new xray's upon arrival of his next appointment. documented in this encounter [facility] 10-27-2021 Instructions Burt Andrea PA-C - 10/27/2021 11:53 AM EDT - Stay in the sling unless doing exercises or self care - No motion behind the back, cross body, or putting weight on the arm for 3 months after surgery - No holding anything greater than 1 pound in the surgical hand - OK to shower, just avoid direct scrubbing, and direct water stream to the incision. - Remember the motion and activity restrictions discussed in office today - Monitor for signs of infection - Schedule PT to begin in 2 weeks - Follow up with Dr. Manzanares in 4 weeks - Call the office with any questions or concerns Unused Medication: Visit the site below to see where to find a medication drop box [email or web address] Please visit our websites for reference: [email or web address] documented in this encounter [facility] 10-27-2021 History of Present illness Narrative Chief Complaint Patient presents with Left Shoulder - Post Op Visit 46 y/o Male. 1w 5d s/p Left shoulder arthroscopic rotator cuff repair (subscapularis), arthroscopic debridement, arthroscopic subacromial decompression with acromioplasty & arthroscopic biceps tenodesis (DOS 10/15/21) w/ Dr Manzanares -- Patient is doing well. Continues to take pain medication as needed. Has some tenderness on anterior shoulder. Says it feels like it wants to pop out . SUBJECTIVE: Katrina returns for post operative follow up. Reports Fair pain control with the need for prn oxycodone pain medication. has not started physical therapy. denies fevers, chills, night sweats. denies nausea, vomiting. denies chest pain, calf pain, shortness of breath. denies warmth, drainage or erythema from the surgical site or other signs of infection. Katrina has been compliant with the sling immobilization and postoperative instructions. Patient presents today about 2 weeks post surgery. Complains of L anterior shoulder discomfort at rest. Managing pain with prn pain meds. Patient is continuing to wear sling around the clock and through the night. Patient denies signs of infection. PHYSICAL EXAMINATION: Left shoulder: Sutures were not removed, steri strips were not applied. The incisions appears healing well and margins intact and healing well with no signs of infection, without purulent drainage, warmth or erythema. There is mild tenderness upon palpation. PROM of the shoulder not tested . No strength testing for this visit. Neurovascular exam is intact. No instability. Radiographs: not indicated IMPRESSION: 2 week(s) status post left shoulder Arthroscopy, Biceps Tenodesis, Debridement extensive, Subacromial Decompression and subscapularis repair . PLAN Katrina is progressing well. The surgical findings and procedure were reviewed in detail with Katrina today. The diagnosis and treatment were discussed in detail today. Remain in the sling. Follow the motion and activity restrictions discussed in office today. Medication refill were not given. Continue to use gabapentin and oxycodone prn. Can use acetaminophen for pain control as well. Continue to monitor for signs for signs of infection. Therapy script was provided. Physical therapy will start in 1-2 weeks and participate in the large RCR With subscapularis and biceps precautions protocol. At home, patient is able to use passive/assisted motion at the elbow joint. Advised to avoid any active biceps motion. Plan for follow up in 4 week(s). Patient asked about use of firearm. Advised to hold off on use at this time due to possible recoil and disruption of L shoulder repair. We will discuss use of firearm again in subsequent visits based on patient's progression. If there are any questions prior to this, the patient was instructed to contact the office. All questions were answered to the patient's satisfaction. The patient does not need new xray's upon arrival of next appointment. documented in this encounter [facility] 10-15-2021 Nurse Note Discharge instructions and prescriptions reviewed with and given to patient and family; both patient and family verbalized an understanding of instructions. Questions answered. documented in this encounter [facility] 10-15-2021 Nurse Surgical operation note Discharge instructions and prescriptions reviewed with and given to patient and family; both patient and family verbalized an understanding of instructions. Questions answered. [facility] 10-15-2021 Note Formatting of this n ote might be different from the original. PATIENT NAME: Katrina Melvin AGE: 46 y.o. DATE OF PROCEDURE: 10/15/21 ATTENDING SURGEON: Butch Manzanares MD ASSISTANTS: ZOILA Gomez Their assistance was required for patient positioning, suture management, retraction, closure and application of a sling. No qualified resident or fellow was available. PREOPERATIVE DIAGNOSES: 1. Left shoulder full thickness rotator cuff tear (subscapularis) 2. Left shoulder biceps tenosynovitis POSTOPERATIVE DIAGNOSES: 1. Left shoulder full thickness rotator cuff tear (subscapularis) 2. Left shoulder biceps tenosynovitis PROCEDURES: 1. Left shoulder arthroscopic rotator cuff repair (subscapularis) 2. Left shoulder arthroscopic debridement 3. Left shoulder arthroscopic subacromial decompression with acromioplasty 4. Left shoulder arthroscopic biceps tenodesis ANESTHESIA: General with interscalene block ESTIMATED BLOOD LOSS: Minimal. COMPLICATIONS: None. SPECIMENS: None. INDICATIONS FOR PROCEDURE: Katrina Melvin is a 46 y.o. year old gentleman who presented with left traumatic rotator cuff tear. Please see my clinical notes for full details. I discussed with him the natural history of this problem, and treatment options, including operative and nonoperative management I also discussed surgical treatment as well as the risks of this and the potential complications of this. After extensive discussion, he would like to proceed with surgery which would be diagnostic arthroscopy, proceeding as indicated with arthroscopic rotator cuff repair, subacromial decompression, biceps and labral treatment as indicated. I specifically discussed the risks, benefits and alternatives of surgery. I discussed the risks of failure of healing, stiffness, retear, need for further surgery, block related problems, anesthetic complications, medical complications, arthritis, implant failure, and neurovascular injury, even, in rare cases, loss of limb or life. Written informed consent was signed and placed in the chart. He has a history of congestive heart failure and pulmonary embolism and obtained the appropriate clearances prior to undergoing arthroscopic surgery. TECHNIQUE: Katrina Melvin was seen in the preoperative holding area and his operative shoulder was site marked. History and physical examination as well as risks, benefits, and alternatives to surgery were again reviewed and the decision was made to proceed with surgery. He was given in interscalene block by anesthesia. He was brought to the operating room and transferred to the operating table. He was induced with a general anesthetic and positioned in the beach chair position. His shoulder was prepped and draped in the usual sterile fashion with chloraprep. A preprocedural timeout was completed including patient, site and side for verification. Antibiotics were administered. All bony prominences were confirmed to be well-padded. Preoperative exam under anesthesia demonstrated full range of motion and no instability A posterior portal was established with an 11-blade scalpel and a blunt trocar was introduced atraumatically into the joint, followed by the arthroscope. An anterior rotator interval portal was established with outside-in technique via spinal needle localization, and a 5mm cannula was placed anteriorly. The joint was then systematically examined with an arthroscopic probe. Superior labrum/Biceps anchor: torn superior labrum Glenoid articular surface: grade 2 wear posteriorly, otherwise intact chondral surface Humeral articular surface: normal Anterior labrum: degenerative fraying without displaced tear Posterior labrum: degenerative fraying without displaced tear Axillary recess: synovitic Biceps/bicipital groove: biceps tendon subluxation in setting of subscapularis tear Rotator cuff (undersurface): intact supraspinatus and infraspinatus Middle glenohumeral ligament: thickened Subscapularis insertion: full thickness tear with minimal retraction Next, an arthroscopic shaver was introduced, and extensive debridement of synovitic joint capsule, frayed anterior and posterior labrum, rotator interval scarred tissue, and undersurface tearing of the rotator cuff were performed. Due to preoperative biceps symptoms as well as intraoperative biceps tearing and instability, biceps tenodesis was indicated. A fiberlink tape suture was passed in luggage tag fashion through the biceps tendon. The biceps tendon was then tenotomized in the joint using arthroscopic scissors. The superior labrum was debrided. Attention was then turned to the subscapularis. There was a full thickness tear in the subscapularis tendon, so I elected to proceed with arthroscopic subscapularis repair. The rotator interval tissue was removed with electrocautery and arthroscopic shaver until the coracoid was visualized, taking care to preserve comma tissue laterally. Anterolateral accessory portal was created and an 8.25mm cannula was placed. The subscapularis footprint on the lesser tuberosity was debrided with a bone cutting shaver to a bleeding bony surface. The arthroscope was removed from the joint and redirected into the subacromial space through the posterior viewing portal with a blunt trocar. A lateral portal was made via outside-in spinal needle localization, and a shaver was introduced. Using the shaver and electrocautery, a thorough bursectomy was performed, followed by release of the coracoacromial ligament which was debrided to a stable edge. The arthroscope was moved to the lateral viewing portal with the bone cutting shaver placed posteriorly. An acromioplasty was then performed using posterior cutting block technique, removing the anterolateral acromial prominence and converting the acromion from a type 2 to type 1 morphology. The bursal side of the supraspinatus and infraspinatus rotator cuff was inspected and intact. There was significant bursitis in the subacromial space that was debrided with an arthroscopic shaver. Next, the 70 degree arthroscope was utilized from the posterior portal to visualize over the top of the humeral head and assess our subscapularis tendon tear. From the anterior portal, a double loaded 2.6mm Fibertak anchor was placed at the medial footprint of the lesser tuberosity. The sutures were sequentially passed as two mattress sutures with 4 passes through the torn subscapularis tendon. The inferior sutures were passed with a suture lasso and the more superior suture was passed with as Esspresew suture passed through the rolled upper border of the subscapularis tendon. Arthroscopic knot tying was then performed reducing the subscapularis to the lesser tuberosity nicely. Next, attention turned towards the lateral row. The bicipital tunnel was unroofed and the bicipital groove was identified. The four suture limbs from the subscapularis repair as well as the luggage tag FiberLink suture from our biceps were loaded into a 4.75mm Swivel Lock anchor. This was placed in the bicipital groove and the sutures were independently tensioned prior to final anchor seating. The sutures were cut. This completed our double row rotator cuff repair. The repair was water tight and the rotator cuff moved as one functional until with gentle range of motion of the shoulder. Soft tissue and bony debris were irrigated out thoroughly. This also completed our arthroscopic biceps tenodesis. The portals were closed with 3-0 monocryl. A sterile dressing was applied. The surgical counts were completed and all counts were correct at the completion of the case. The patient's arm was placed into a postoperative sling. The patient was extubated at the completion of the case and returned to the recovery room in stable condition. I was present for all critical portions of the procedure. ZOILA Gomez assisted with all aspects of the surgical procedure including patient preoperative evaluation, positioning, arthroscopic rotator cuff repair, subacromial decompression and acromioplasty, open biceps tenodesis, closure, and sling application. POSTOPERATIVE PLAN: Katrina Melvin will be discharged home on an outpatient basis. He will be seen in the office in 10-14 days for suture removal and wound care. He was given prescriptions for multimodal pain medication [facility], nausea medicine, and home exercises. He will be placed on the subscapularis rotator cuff repair protocol postoperatively. Intraoperative findings, procedures performed, and postoperative plan were discussed with the patient and family on the day of surgery. [facility] 6 [facility] Note Formatting of this n ote might be different from the original. Katrina Melvin ([id number]) PRE OPERATIVE DIAGNOSIS Rotator cuff tear [M75.100] POST OPERATIVE DIAGNOSIS Post-Op Diagnosis Codes: * Rotator cuff tear [M75.100] PROCEDURE PERFORMED Procedure(s) (LRB): ARTHROSCOPY SHOULDER W/ ROTATOR CUFF REPAIR (Left) ARTHROSCOPY SHOULDER W/ SUBACROMIAL DECOMPRESSION/ACROMIOPLASTY ADD-ON PX (Left) TENODESIS BICEPS LONG TENDON (Left) PRIMARY CLOSURE Yes INTRAOPERATIVE FINDINGS No significant abnormalities SURGEON Surgeon(s) and Role: * Butch Manzanares MD - Primary ANESTHESIOLOGIST Anesthesiologist: Morteza Leon MD SAP SOLUTION MANAGER CONSULTANT: Victor Hugo Prescott APRN-SAP SOLUTION MANAGER CONSULTANT Prekindergarten Teacher: GILDA Morales SURGICAL STAFF Broom Machine Operator: Thelma Cabezas RN; Anamaria Delgado RN Scrub Person: Nena Wesley Compensation And Benefits Manager: Albina Roth COMPLICATIONS None ESTIMATED BLOOD LOSS Minimal SPECIMENS No specimen sent * No specimens in log * Butch Manzanares MD October 15, 2021 9:36 AM [facility] 10-15-2021 Miscellaneous Notes PATIENT NAME: Katrina Melvin AGE: 46 y.o. DATE OF PROCEDURE: 10/15/21 ATTENDING SURGEON: Butch Manzanares MD ASSISTANTS: ZOILA Gomez Their assistance was required for patient positioning, suture management, retraction, closure and application of a sling. No qualified resident or fellow was available. PREOPERATIVE DIAGNOSES: 1. Left shoulder full thickness rotator cuff tear (subscapularis) 2. Left shoulder biceps tenosynovitis POSTOPERATIVE DIAGNOSES: 1. Left shoulder full thickness rotator cuff tear (subscapularis) 2. Left shoulder biceps tenosynovitis PROCEDURES: 1. Left shoulder arthroscopic rotator cuff repair (subscapularis) 2. Left shoulder arthroscopic debridement 3. Left shoulder arthroscopic subacromial decompression with acromioplasty 4. Left shoulder arthroscopic biceps tenodesis ANESTHESIA: General with interscalene block ESTIMATED BLOOD LOSS: Minimal. COMPLICATIONS: None. SPECIMENS: None. INDICATIONS FOR PROCEDURE: Katrina Melvin is a 46 y.o. year old gentleman who presented with left traumatic rotator cuff tear. Please see my clinical notes for full details. I discussed with him the natural history of this problem, and treatment options, including operative and nonoperative management I also discussed surgical treatment as well as the risks of this and the potential complications of this. After extensive discussion, he would like to proceed with surgery which would be diagnostic arthroscopy, proceeding as indicated with arthroscopic rotator cuff repair, subacromial decompression, biceps and labral treatment as indicated. I specifically discussed the risks, benefits and alternatives of surgery. I discussed the risks of failure of healing, stiffness, retear, need for further surgery, block related problems, anesthetic complications, medical complications, arthritis, implant failure, and neurovascular injury, even, in rare cases, loss of limb or life. Written informed consent was signed and placed in the chart. He has a history of congestive heart failure and pulmonary embolism and obtained the appropriate clearances prior to undergoing arthroscopic surgery. TECHNIQUE: Katrina Melvin was seen in the preoperative holding area and his operative shoulder was site marked. History and physical examination as well as risks, benefits, and alternatives to surgery were again reviewed and the decision was made to proceed with surgery. He was given in interscalene block by anesthesia. He was brought to the operating room and transferred to the operating table. He was induced with a general anesthetic and positioned in the beach chair position. His shoulder was prepped and draped in the usual sterile fashion with chloraprep. A preprocedural timeout was completed including patient, site and side for verification. Antibiotics were administered. All bony prominences were confirmed to be well-padded. Preoperative exam under anesthesia demonstrated full range of motion and no instability A posterior portal was established with an 11-blade scalpel and a blunt trocar was introduced atraumatically into the joint, followed by the arthroscope. An anterior rotator interval portal was established with outside-in technique via spinal needle localization, and a 5mm cannula was placed anteriorly. The joint was then systematically examined with an arthroscopic probe. Superior labrum/Biceps anchor: torn superior labrum Glenoid articular surface: grade 2 wear posteriorly, otherwise intact chondral surface Humeral articular surface: normal Anterior labrum: degenerative fraying without displaced tear Posterior labrum: degenerative fraying without displaced tear Axillary recess: synovitic Biceps/bicipital groove: biceps tendon subluxation in setting of subscapularis tear Rotator cuff (undersurface): intact supraspinatus and infraspinatus Middle glenohumeral ligament: thickened Subscapularis insertion: full thickness tear with minimal retraction Next, an arthroscopic shaver was introduced, and extensive debridement of synovitic joint capsule, frayed anterior and posterior labrum, rotator interval scarred tissue, and undersurface tearing of the rotator cuff were performed. Due to preoperative biceps symptoms as well as intraoperative biceps tearing and instability, biceps tenodesis was indicated. A fiberlink tape suture was passed in luggage tag fashion through the biceps tendon. The biceps tendon was then tenotomized in the joint using arthroscopic scissors. The superior labrum was debrided. Attention was then turned to the subscapularis. There was a full thickness tear in the subscapularis tendon, so I elected to proceed with arthroscopic subscapularis repair. The rotator interval tissue was removed with electrocautery and arthroscopic shaver until the coracoid was visualized, taking care to preserve comma tissue laterally. Anterolateral accessory portal was created and an 8.25mm cannula was placed. The subscapularis footprint on the lesser tuberosity was debrided with a bone cutting shaver to a bleeding bony surface. The arthroscope was removed from the joint and redirected into the subacromial space through the posterior viewing portal with a blunt trocar. A lateral portal was made via outside-in spinal needle localization, and a shaver was introduced. Using the shaver and electrocautery, a thorough bursectomy was performed, followed by release of the coracoacromial ligament which was debrided to a stable edge. The arthroscope was moved to the lateral viewing portal with the bone cutting shaver placed posteriorly. An acromioplasty was then performed using posterior cutting block technique, removing the anterolateral acromial prominence and converting the acromion from a type 2 to type 1 morphology. The bursal side of the supraspinatus and infraspinatus rotator cuff was inspected and intact. There was significant bursitis in the subacromial space that was debrided with an arthroscopic shaver. Next, the 70 degree arthroscope was utilized from the posterior portal to visualize over the top of the humeral head and assess our subscapularis tendon tear. From the anterior portal, a double loaded 2.6mm Fibertak anchor was placed at the medial footprint of the lesser tuberosity. The sutures were sequentially passed as two mattress sutures with 4 passes through the torn subscapularis tendon. The inferior sutures were passed with a suture lasso and the more superior suture was passed with as Esspresew suture passed through the rolled upper border of the subscapularis tendon. Arthroscopic knot tying was then performed reducing the subscapularis to the lesser tuberosity nicely. Next, attention turned towards the lateral row. The bicipital tunnel was unroofed and the bicipital groove was identified. The four suture limbs from the subscapularis repair as well as the luggage tag FiberLink suture from our biceps were loaded into a 4.75mm Swivel Lock anchor. This was placed in the bicipital groove and the sutures were independently tensioned prior to final anchor seating. The sutures were cut. This completed our double row rotator cuff repair. The repair was water tight and the rotator cuff moved as one functional until with gentle range of motion of the shoulder. Soft tissue and bony debris were irrigated out thoroughly. This also completed our arthroscopic biceps tenodesis. The portals were closed with 3-0 monocryl. A sterile dressing was applied. The surgical counts were completed and all counts were correct at the completion of the case. The patient's arm was placed into a postoperative sling. The patient was extubated at the completion of the case and returned to the recovery room in stable condition. I was present for all critical portions of the procedure. ZOILA Gomez assisted with all aspects of the surgical procedure including patient preoperative evaluation, positioning, arthroscopic rotator cuff repair, subacromial decompression and acromioplasty, open biceps tenodesis, closure, and sling application. POSTOPERATIVE PLAN: Katrina Melvin will be discharged home on an outpatient basis. He will be seen in the office in 10-14 days for suture removal and wound care. He was given prescriptions for multimodal pain medication [facility], nausea medicine, and home exercises. He will be placed on the subscapularis rotator cuff repair protocol postoperatively. Intraoperative findings, procedures performed, and postoperative plan were discussed with the patient and family on the day of surgery. Sling 6 weeks PT 4 weeks Katrina Melvin ([id number]) PRE OPERATIVE DIAGNOSIS Rotator cuff tear [M75.100] POST OPERATIVE DIAGNOSIS Post-Op Diagnosis Codes: * Rotator cuff tear [M75.100] PROCEDURE PERFORMED Procedure(s) (LRB): ARTHROSCOPY SHOULDER W/ ROTATOR CUFF REPAIR (Left) ARTHROSCOPY SHOULDER W/ SUBACROMIAL DECOMPRESSION/ACROMIOPLASTY ADD-ON PX (Left) TENODESIS BICEPS LONG TENDON (Left) PRIMARY CLOSURE Yes INTRAOPERATIVE FINDINGS No significant abnormalities SURGEON Surgeon(s) and Role: * Butch Manzanares MD - Primary ANESTHESIOLOGIST Anesthesiologist: Morteza Leon MD SAP SOLUTION MANAGER CONSULTANT: Victor Hugo Prescott APRN-SAP SOLUTION MANAGER CONSULTANT Prekindergarten Teacher: GILDA Morales SURGICAL STAFF Broom Machine Operator: Thelma Cabezas RN; Anamaria Delgado RN Scrub Person: Nena Wesley Compensation And Benefits Manager: Albina Roth COMPLICATIONS None ESTIMATED BLOOD LOSS Minimal SPECIMENS No specimen sent * No specimens in log * Butch Manzanares MD October 15, 2021 9:36 AM documented in this encounter [facility] 10-15-2021 Hospital Discharge instructions Burt Andrea PA-C - 10/15/2021 6:28 AM EDT Images from the original note were not included. The [facility] Dr. Sean Fish [facility] [place] Dr. Shima Carrasco [email or web address] Josh [facility], [id number] Dr. Butch Manzanares Silvina Acharya PA-C ASIF Gomez PA-C POST-OPERATIVE INSTRUCTIONS ARTHROSCOPIC SHOULDER REPAIR Your recovery after shoulder surgery can take 6-9 months (and sometimes up to a year) to fully recover. It takes 12 weeks for the repair to fully heal, so it is very important to follow all precautions after surgery as directed. These instructions are intended to help you control swelling and pain, and to allow your shoulder and repaired tissues to heal. These instructions are a general guideline, because no patient or procedure is the same. If needed, your surgeon will give you further specific instructions. If you are calling after hours or on the weekend, call [phone] and at the prompt select option 2 - Orthopedics television tube inspector. Do not select Sports Medicine option SLING You are required to wear your sling at all times (including sleeping) until your follow up appointment. This is necessary to protect your repair. You may remove it to work on your hand, wrist, and elbow exercises, for getting dressed, and for hygiene. Otherwise, it should remain on at all times. If a squeeze ball was provided with your sling, this should be squeezed as often as possible to help to reduce hand stiffness, and to reduce the swelling that may occur in the hand and wrist ICE It is recommended to ice your shoulder for 20 minutes per hour using an ice pack, Cryo Cuff if provided, or a bag of frozen peas. Ice can be especially helpful for the first several days after surgery. It can then be used as needed for pain and swelling. PAIN BLOCK/PAIN CATHETER The pain block/catheter is intended for pain relief and can last for up to 48 hours. During this time, you will not experience pain and will not be able to move your hand and fingers. It will give you the sensation of your arm being paralyzed . THIS IS TEMPORARY UNTIL THE BLOCK WEARS OFF. It is recommended that you start your pain medication even though you are getting pain relief from the block. Please start taking your pain medicine the night of surgery before the block wears off. It is more difficult to control the pain once the block wears off, then to keep a constant level of the pain medication in your system. For further questions regarding the pain catheter or block, please refer to the pain pump handout given to you from surgery or contact the anesthesia department as directed in the handout. MEDICATIONS You should resume all of your normal medications after shoulder surgery. If you are on blood thinners, these should be discussed with our team to decide on a date to resume them (typically the day after surgery). You will be given prescriptions for pain medications: Fill the pain medications immediately and begin taking the medications before your nerve block wears off. You are encouraged to take the pain medications as directed on the prescription, and on a regular schedule for the first 3-4 days after surgery. For the first few days, it is important to stay ahead of the pain, using your pain medicine. It is much more difficult to catch up to the pain. Depending on your allergies and medical history, you can add in either tylenol (acetaminophen) or Advil (ibuprofen) for supplemented pain control Even with the nerve block from surgery, it is recommended that you start on the pain medications after surgery to avoid the block wearing off without having pain medications in your system. As the pain decreases, you may decrease the pain medication and switch to extra strength Tylenol if needed. Avoid driving and consuming alcohol while taking pain medication. Common side effects of pain medication are nausea, drowsiness, and constipation. Consider taking medication with food, and also consider using an hrln-lbe-lxpxjwo stool softener. Unused Medication: Visit the site below to see where to find a medication drop box [email or web address] Keep the surgical dressing clean and dry for the first 72 hours (3 days) after surgery. You may remove the dressing 3 days postop and apply Band-Aids over small incisions and you may tape gauze pads over the larger incisions. Please leave the Steri-Strips intact. They will fall off on their own. If you have drainage more than 5 days after surgery, please contact our office for advice. SHOWER You may shower and get the incisions wet 5 days after surgery, as long as there is no drainage from the incisions. Avoid letting the shower stream hit the incisions directly until the sutures are removed. DO NOT scrub incisions or soak under water (bathtub, swimming pool or hot tub etc.) Pat the shoulder dry and then re-apply the dressing SLEEPING You may find it more comfortable to sleep in a semi-reclined position (i.e.. recliner type chair or propped up on pillows) following shoulder surgery. You may return to sleeping in your bed whenever it feels comfortable to do so. EXERCISES You should begin the elbow, wrist, and hand exercises that you were shown at the hospital on the day of surgery. Remember no active motion of the shoulder or elbow (moving the arm without assistance from someone else) until follow up. These may be repeated throughout the day as you feel needed. These exercises are to make sure your hand, and elbow do not get stiff in your sling. Begin exercises within the first 3 days after surgery. Do them 3-4 times per day, 10 times each. Do the elbow motion slowly, using your non-operative hand to move the surgical arm FOLLOW UP APPOINTMENTS Your first follow up appointment is generally 10-14 days after surgery. Normally this will be with one of our Physician Assistants. Please refer to your preoperative packet for the date and time or contact the office after surgery to confirm this appointment . [x] Please wait until after first follow up appointment for physical therapy instructions Wound care, pain management, and a review of your surgical procedure will be discussed at your first post-operative appointment Additional appointments are scheduled according to the type of surgery that you had and how you are progressing. PRECAUTIONS After anesthesia, rest for 24 hours. General anesthesia may cause a sore throat, jaw discomfort or muscle aches. These symptoms can last for one or two days. Do not drive, drink alcoholic beverages or make any important or legal decisions during this time. Avoid placing arm behind back (tucking in shirt, putting on belt), and do not lean on affected arm or use arm to push up from a seated or laying position. A good general rule is to keep your arm where you can see it. Keep your first few meals after surgery light and drink plenty of fluids, and some people are nauseas after surgery. Smoking increases your risk of infection and can delay healing times. If you smoke, you are encouraged to quit, cut back or at least quit smoking during the post-operative period. Pain medications are important for the first few days after surgery to treat postoperative pain. Addiction, tolerance, and side effects are a big concern. Decrease the pain medications as soon as you can. This is typically after the first few days. Most patients require narcotic pain medications only for the first few weeks after surgery (even large procedures). Prolonged use increases the risk of problems with these medications. MOST COMMON POST-OPERATIVE CONCERNS Pain - It is important to start you pain medication as soon as you can after surgery, even if you are not experiencing any pain. If you receive a block and when the block wears off, there can be a heightened sense of pain. If this occurs, understand that this can be normal. Increase your pain medication to 2-3 oxycodone every 4 hours and 1 gabapentin every 8 hours. Do this for 1 day until the pain is manageable and then decrease back to normal dosing. You may also add in Advil (ibuprofen) or Tylenol (acetaminophen) for added pain relief. Swelling - Due to surgery, fluid may build up in your arm. Due to gravity and being in the sling, the swelling may move to your elbow and wrist/hand. This is normal. It is recommended that you do your hand/wrist and elbow exercises (shown above). This will help move the fluid back up your arm. Your body will naturally reabsorb the fluid over the first 1-2 weeks after surgery. Nausea - The pain medication can cause nausea/vomiting. It is suggested to take pain medication with food. We will also prescribe anti-nausea medication (ondansetron/promethazine). It is recommended to take this before taking pain medication Constipation - Pain medication can also cause constipation. We also prescribed constipation medication (docusate). It is recommended to take this medication, and plenty of water, the first few days after surgery until you have your first few bowel movements. If you have not had a bowel movement within 5 days after surgery, you can pick pulling machine tender over the counter Milk of Magnesia at any pharmacy. Make sure you stay hydrated. Sleeping - Due to the sling and pain, lack of sleep is a very common concern after shoulder surgery. We suggest sleeping in a recliner the first few days to weeks after surgery. We also suggest scheduling your pain medication so that you are taking it before bed if possible. The pain medication may cause you to be drowsy. We also suggest taking tylenol PM, Advil PM, or melatonin to assist with sleep. Spasms - Due to surgery, and your arm being in a sling, you may experience muscle spasms or cramps around your shoulder and arm. This is completely normal. If this happens, we suggest using a heating pad around these muscles for 20 minutes every hour when the cramping occurs. This will help relax the muscle. Numbness/Tingling - Due to swelling and being in a sling, you may notice some numbness and or tingling in your hand on the surgical side. This is normal and should decrease over time. If it fails to improve, please let us know Driving - We do not recommend driving during the period that you have to wear your sling. IF YOU ABSOLUTELY HAVE TO, then you can not be taking narcotics, you cannot drive a manual shift car, and you have to be able to safely operate your vehicle with one arm. We suggest going to an empty parking to get familiar driving with one arm NOTIFY THE OFFICE IMMEDIATELY, , IF YOU DEVELOP ANY OF THE FOLLOWING: If you are calling after hours or on the weekend, call [phone] and at the prompt select option 2 - Orthopedics television tube inspector. Do not select Sports Medicine option Increased redness or swelling over the incision area Incision area is warm or hot to touch Incision has foul smelling drainage Relentless pain, nausea, vomiting, bleeding or drainage Severe calf pain or chest pain You develop a fever greater than 101.4 more than 48 hours after surgery If you having an emergency that requires immediate attention go to the nearest emergency room or call 911. Please contact the office with any other questions or concerns that you may have regarding your surgery. Please visit our website for further information: [email or web address] documented in this encounter [facility] 10-15-2021 Attending History and physical note PERIOPERATIVE SURGICAL HISTORY AND PHYSICAL UPDATE Pre-op Diagnoses: Rotator cuff tear [M75.100] Procedure(s): ARTHROSCOPY SHOULDER W/ ROTATOR CUFF REPAIR ARTHROSCOPY SHOULDER W/ SUBACROMIAL DECOMPRESSION/ACROMIOPLASTY ADD-ON PX TENODESIS BICEPS LONG TENDON Surgeon(s): Surgeon(s) and Role: * Butch Manzanares MD - Primary History and Physical Update: Blood pressure 126/75, pulse 74, temperature 97.3 F (36.3 C), temperature source Infrared, resp. rate 21, height 1.93 m (6' 4 ), weight (!) 137.7 kg (303 lb 9.6 oz), SpO2 97 %. I have reviewed Katrina Melvin's medical, surgical and other pertinent history, and I have updated the medication and allergy information in the computerized patient record. I have examined the patient, reviewed the previous H&P completed on date (10/03/21) and there are no changes. Today's surgical history and physical update was completed by Burt Andrea PA-C, 10/15/2021, 6:27 AM. In compliance with the laws of the [facility] Medical Board of [place], the following conditions have been met for extending the dose or duration of opioid pain medication for the treatment of acute pain. Diagnosis: ICD-10-CM 1. Preoperative examination Z01.818 2. Pain following surgery or procedure (ICD10 G89.18) 7 day limit exceeded due to pain that is expected to persist longer than 7 days. Pathology of pain: Surgery 30 MED average exceeded due to: Major Orthopedic Surgery Reason for excedeing the 30 MED average: Pain after orthopedic surgery not yet acceptably controlled by non-opioid medication. This is the lowest dose need for his medical condition. The patient will be undergoing major orthopaedic surgery to treat his pathology. Multiple strategies will be used to minimize opioid analgesic requirements for acute post-operative pain control and may include one or more of the following: cryotherapy, elevation, compression, NSAIDs, acetaminophen, corticosteroids, regional nerve blockade, local anesthetic, muscle relaxants, gabapentin, and other non-opioid medications. Despite planned use of non-opioid therapies as allowed by the patient s medical condition, we anticipate the minimum opioid dose required for adequate post-operative acute pain control will exceed 30 morphine equivalent dose (MED) per 24 hours. Opioid analgesics will also be required for a period of greater than 7 days for adequate post-operative pain control. The patient's account was reviewed on the [place] [employer] Rx Reporting System: [employer]. Their controlled substance medication history was found to be aligned with health and medication history. Patient has had no adverse outcomes with this medication. Burt Andrea PA-C, 10/15/2021, 6:27 AM. Source Note - Lizandro Reyes, DENTAL OFFICE COORDINATOR-[employer] - 10/03/2021 12:30 PM EDT Pre-Operative Assessment (PAT) Outpatient Clinic Note H&P Date of Evaluation: 10/03/2021 Date of Surgery: 10/15/2021 Surgeon: Dr. Manzanares Pre-Op Diagnosis: Right shoulder pain Planned Procedure: ARTHROSCOPY SHOULDER W/ ROTATOR CUFF REPAIR - Right CHIEF COMPLAINT Preoperative cardiovascular testing and medication management for major surgery HISTORY Katrina Melvin is a 46 y.o. male with the below history presenting for preoperative evaluation. Chronic medical problems are stable with no acute changes in symptoms or medications: Yes Current or ongoing urinary symptoms: No Anesthesia: Personal or Family history of problems related to anesthesia (ex.Malignant Hyperthermia): No History of difficult intubations: No Pacer/AICD: No; PONV: No Penicillin Allergy: No Cardiac: Hx of Cardiac Disease/Stents - No Current Symptoms of Angina - No Current Symptoms of Decompensated Heart Failure - No Use of Beta-Blockers - Yes Current Functional Status ? 4 - Yes Pulmonary: History of KHARI: no History of asthma or COPD: No Smoker: no STOP-BANG Risk Assessment: STOP Questions o Do you snore? No o Frequently tired during the day? No o Observed gasping or choking episodes while asleep? No o Diagnosis of/or treated for high blood pressure? Yes BANG Questions o Age more than 50? No o Gender assignment at : Male? Yes o Neck circumference greater than 40 cm? Yes o BMI more then 35? - Body mass index is 36.03 kg/m . Yes High risk: No (High risk ? 5 STOP-BANG; STOP ? 2 AND Male; STOP ? 2 AND BMI > 35 kg/m2; STOP ? 2 AND Neck ? 40 cm) MEDICAL HISTORY: Past Medical History: Diagnosis Date Bleeding disorder 04/10/2016 Cardiac angina Cardiomyopathy Congestive heart failure Diabetes mellitus DVT (deep venous thrombosis) 2015 Essential hypertension, benign History of blood clots 2016 heart Hyperthyroidism Pulmonary embolism 2015 TIA (transient ischemic attack) 06/2016 Vascular disease Past Surgical History: Procedure Laterality Date ANKLE SURGERY Left 1992 SOCIAL HISTORY: reports that he quit smoking about 19 years ago. He has a 5.00 pack-year smoking history. He quit smokeless tobacco use about 13 years ago. He reports current alcohol use. He reports previous drug use. Drug: Marijuana. FAMILY HISTORY: family history includes Bleeding or Clotting Problems in his mother; Diabetes in his father, maternal grandmother, mother, and paternal grandmother; Heart Disease - Other in his maternal grandfather and paternal grandfather; Heart Failure in his maternal grandmother; Lipid Disorder in his father; Myocardial Infarction in his maternal grandfather and paternal grandfather; Uterine Cancer in his paternal grandmother. MEDICATIONS: Current Outpatient Medications Medication Instructions carveDILOL (COREG) 50 mg, Oral, 2 TIMES DAILY WITH MEALS cholecalciferol (VITAMIN D3) 5,000 Units, Oral, DAILY citalopram (CELEXA) 20 mg, Oral, DAILY Dulaglutide 1.5 mg, Subcutaneous, WEEKLY Empagliflozin (JARDIANCE) 10 mg, Oral, DAILY Enoxaparin Sodium (LOVENOX SC) 135 mg, Subcutaneous, EVERY 12 HOURS furOSEmide (LASIX) 40 mg, Oral, 2 TIMES DAILY, Please note pt can take an extra 20 mg by mouth daily only as needed Qcgtji-Ibavcnlkv-Zayfkaou-MSM (GLUCOSAMINE CHONDROITIN JOINT PO) Oral, DAILY magnesium oxide (MAG-OX) 400 mg, Oral, DAILY METHIMAZOLE PO 5 mg, Oral, DAILY Multiple Vitamins-Minerals (MULTIVITAMIN ADULT PO) 1 tablet, Oral, DAILY Probiotic Product (PROBIOTIC ADVANCED PO) Oral, NEEDED sacubitril-valsartan 97-103 MG tablet 1 tablet, Oral, 2 TIMES DAILY spironolactone (ALDACTONE) 25 mg, Oral, DAILY ALLERGIES: Allergies Allergen Reactions [facility] [Perflutren Lipid Microsphere] Back pain center REVIEW OF SYSTEMS The patient denies any chest pain on exertion, shortness of breath, orthopnea or palpitation. ROS also negative for fever, chills, headache, dizziness, cough, sputum, nausea, vomiting, diarrhea, constipation, dysuria, hematuria, rashes or easy bleeding. All other systems were reviewed and were negative OBJECTIVE Vitals: 10/03/21 1247 BP: 107/59 Pulse: 81 Resp: 18 Temp: 97.9 degrees F (36.6 degrees C) TempSrc: Temporal SpO2: 94% Weight: 134.3 kg (296 lb) Height: 1.93 m (6' 4 ) Body mass index is 36.03 kg/m . General:46 y.o. male in NAD, alert and oriented x 3 HEENT: Normocephalic, pupils equal round and reactive to light, EOMI, moist mucous membranes noted. Neck: Full ROM, supple, no lymphadenopathy Pulmonary: bilateral breath sounds, clear to auscultation, no use of accessory muscles, no wheezes/rhonchi/rales Cardiovascular:Regular rate and rhythm. Normal S1, S2, No murmurs, rubs or gallops Abdomen: soft, nontender, nondistended, normoactive bowel sounds, No Hepatosplenomegaly Extremities: No cyanosis, clubbing or edema. Normal peripheral pulses noted. Neuro: Cranial nerves are grossly intact, No focal deficits noted, moving all 4 extremities. Skin: warm, dry, intact; no erythema or rash DATA REVIEW Lab Results Component Value Date HCT 45.8 11/03/2019 Lab Results Component Value Date SODIUM 141 03/29/2019 POTASSIUM 4.3 03/29/2019 CHLORIDE 102 03/29/2019 CO2 27 03/29/2019 BUN 18 03/29/2019 CREATSERUM 0.89 11/03/2019 GLUCOSE 135 (H) 06/29/2019 No results found for: INR, PT No results found for: HGBA1C In addition to the labs above, I have personally reviewed all laboratory data in the EMR and CareEverywhere Imaging/EKG and procedures: I have personally reviewed the EKG and my findings are Normal Sinus Rhythm, normal axis, no blocks, no ST & T wave abnormalities, non-acute ECHO: Results for orders placed during the hospital encounter of 06/30/19 ECHOCARDIOGRAM 06/30/2019 (Final) Interpretation Summary Technically poor study. Left Ventricle: Chamber size is enlarged. Normal wall thickness. Moderate global hypokinesis. Unable to assess regional wall motion. Ejection fraction is moderately reduced (30 - 35%). Diastolic function is consistent with impaired relaxation (grade I). Global longitudinal strain is -7.9%. Right Ventricle: Chamber size is normal. Systolic function is normal. Left Atrium: Chamber size is normal. Right Atrium: Chamber size is normal. No significant valvular disease. I have personally reviewed the above imaging findings in the chart. ASSESSMENT AND PLAN Pre-operative Risk Evaluation - Katrina Melvin is at a Acceptable risk for a intermediate risk surgery - Per ACC/AHA guidelines, the patient requires no further testing at this time. - METS >4: yes, good exercise tolerance - Patient Meets the Following RCRI Criteria (RCRI): *History of congestive heart failure *History of cerebrovascular disease: 2 criteria suggesting a 10.1% risk of major cardiac events - Please utilize continuous pulse oximetry & telemetry for at least 24 hours and consider using CPAP or BiPAP when patient is sleeping for patients if High risk for KHARI Dilated cardiomyopathy Chronic systolic heart failure - on lasix prn, entresto, spironolactone, carvedilol -LVEF 35% per TTE 06/2019, MRI 45% LVEF - 10/2019 -following [facility] cardiology, Dr. Hernandez -per Dr. Hernandez His CV risk for planned orthopedic (rotator cuff) procedure is acceptable, and no further testing pre-op is required. He should continue on his present CV medications perioperatively. -patient notified to continue heart medications as prescribed perioperatively Hx of saddle PE/DVT -provoked after knee injury -treated, remains on therapeutic lovenox, plans to switch to Eliquis after weight loss -per hematology, Dr. Winter For upcoming surgery, hold Lovenox after the morning dose day prior to surgery. May resume once deemed safe by surgeon. Hx of TIA -mild memory issues, otherwise no residual deficits Diabetes Mellitus type 2 -managed on empaglifozin and dulaglutide --denies episodes of hypoglycemia -hgb a1c 8.7 -recommend SSI periop, resume home meds when tolerating PO post-op Hyperthyroidism -controlled with methimazole Chronic diarrhea and constipation -on probiotic as needed -improving with diet changes -currently no issues Body mass index is 36.03 kg/m .:- Lifestyle modifications Perioperative medication recommendations: carveDILOL 25 MG tablet Ok to take morning of surgery citalopram 20 MG tablet Ok to take morning of surgery Dulaglutide 1.5 MG/0.5ML Solution Pen-injector injection Do Not take the morning of surgery Empagliflozin 10 MG tablet Do Not take 3 days prior to surgery Enoxaparin Sodium (LOVENOX SC) Following hematology recommendations ...hold Lovenox after the morning dose day prior to surgery. May resume once deemed safe by surgeon. furOSEmide 40 MG tablet Do Not take the morning of surgery Jpmumf-Degavqedr-Xwutdkia-MSM (GLUCOSAMINE CHONDROITIN JOINT PO) Do Not take one week before surgery magnesium oxide 400 MG Tab Do Not take the morning of surgery METHIMAZOLE PO Ok to take morning of surgery Multiple Vitamins-Minerals (MULTIVITAMIN ADULT PO) Do Not take 3 days prior to surgery Probiotic Product (PROBIOTIC ADVANCED PO) Do Not take the morning of surgery sacubitril-valsartan 97-103 MG tablet Do not take night before or morning of surgery spironolactone 25 MG tablet Do Not take the morning of surgery Vitamin D3 2000 units Cap Do Not take 3 days prior to surgery Above recommendations were discussed with the patient, and patient understood and agreed with the plan outlined above. Thank you for allowing us to participate in the care of Katrina Melvin. ABDIAZIZ Bai Division of Hospital Medicine [facility] 10-15-2021 History and physical note PERIOPERATIVE SURGICAL HISTORY AND PHYSICAL UPDATE Pre-op Diagnoses: Rotator cuff tear [M75.100] Procedure(s): ARTHROSCOPY SHOULDER W/ ROTATOR CUFF REPAIR ARTHROSCOPY SHOULDER W/ SUBACROMIAL DECOMPRESSION/ACROMIOPLASTY ADD-ON PX TENODESIS BICEPS LONG TENDON Surgeon(s): Surgeon(s) and Role: * Butch Manzanares MD - Primary History and Physical Update: Blood pressure 126/75, pulse 74, temperature 97.3 F (36.3 C), temperature source Infrared, resp. rate 21, height 1.93 m (6' 4 ), weight (!) 137.7 kg (303 lb 9.6 oz), SpO2 97 %. I have reviewed Katrina Melvin's medical, surgical and other pertinent history, and I have updated the medication and allergy information in the computerized patient record. I have examined the patient, reviewed the previous H&P completed on date (10/03/21) and there are no changes. Today's surgical history and physical update was completed by Burt Andrea PA-C, 10/15/2021, 6:27 AM. In compliance with the laws of the [facility] Medical Board of [place], the following conditions have been met for extending the dose or duration of opioid pain medication for the treatment of acute pain. Diagnosis: ICD-10-CM 1. Preoperative examination Z01.818 2. Pain following surgery or procedure (ICD10 G89.18) 7 day limit exceeded due to pain that is expected to persist longer than 7 days. Pathology of pain: Surgery 30 MED average exceeded due to: Major Orthopedic Surgery Reason for excedeing the 30 MED average: Pain after orthopedic surgery not yet acceptably controlled by non-opioid medication. This is the lowest dose need for his medical condition. The patient will be undergoing major orthopaedic surgery to treat his pathology. Multiple strategies will be used to minimize opioid analgesic requirements for acute post-operative pain control and may include one or more of the following: cryotherapy, elevation, compression, NSAIDs, acetaminophen, corticosteroids, regional nerve blockade, local anesthetic, muscle relaxants, gabapentin, and other non-opioid medications. Despite planned use of non-opioid therapies as allowed by the patient s medical condition, we anticipate the minimum opioid dose required for adequate post-operative acute pain control will exceed 30 morphine equivalent dose (MED) per 24 hours. Opioid analgesics will also be required for a period of greater than 7 days for adequate post-operative pain control. The patient's account was reviewed on the [place] [employer] Rx Reporting System: [employer]. Their controlled substance medication history was found to be aligned with health and medication history. Patient has had no adverse outcomes with this medication. Burt Andrea PA-C, 10/15/2021, 6:27 AM. Source Note - Lizandro Reyes APRN-[employer] - 10/03/2021 12:30 PM EDT Pre-Operative Assessment (PAT) Outpatient Clinic Note H&P Date of Evaluation: 10/03/2021 Date of Surgery: 10/15/2021 Surgeon: Dr. Manzanares Pre-Op Diagnosis: Right shoulder pain Planned Procedure: ARTHROSCOPY SHOULDER W/ ROTATOR CUFF REPAIR - Right CHIEF COMPLAINT Preoperative cardiovascular testing and medication management for major surgery HISTORY Katrina Melvin is a 46 y.o. male with the below history presenting for preoperative evaluation. Chronic medical problems are stable with no acute changes in symptoms or medications: Yes Current or ongoing urinary symptoms: No Anesthesia: Personal or Family history of problems related to anesthesia (ex.Malignant Hyperthermia): No History of difficult intubations: No Pacer/AICD: No; PONV: No Penicillin Allergy: No Cardiac: Hx of Cardiac Disease/Stents - No Current Symptoms of Angina - No Current Symptoms of Decompensated Heart Failure - No Use of Beta-Blockers - Yes Current Functional Status ? 4 - Yes Pulmonary: History of KHARI: no History of asthma or COPD: No Smoker: no STOP-BANG Risk Assessment: STOP Questions o Do you snore? No o Frequently tired during the day? No o Observed gasping or choking episodes while asleep? No o Diagnosis of/or treated for high blood pressure? Yes BANG Questions o Age more than 50? No o Gender assignment at : Male? Yes o Neck circumference greater than 40 cm? Yes o BMI more then 35? - Body mass index is 36.03 kg/m . Yes High risk: No (High risk ? 5 STOP-BANG; STOP ? 2 AND Male; STOP ? 2 AND BMI > 35 kg/m2; STOP ? 2 AND Neck ? 40 cm) MEDICAL HISTORY: Past Medical History: Diagnosis Date Bleeding disorder 04/10/2016 Cardiac angina Cardiomyopathy Congestive heart failure Diabetes mellitus DVT (deep venous thrombosis) 2016 Essential hypertension, benign History of blood clots 2016 heart Hyperthyroidism Pulmonary embolism 2016 TIA (transient ischemic attack) 06/2016 Vascular disease Past Surgical History: Procedure Laterality Date ANKLE SURGERY Left 1992 SOCIAL HISTORY: reports that he quit smoking about 19 years ago. He has a 5.00 pack-year smoking history. He quit smokeless tobacco use about 13 years ago. He reports current alcohol use. He reports previous drug use. Drug: Marijuana. FAMILY HISTORY: family history includes Bleeding or Clotting Problems in his mother; Diabetes in his father, maternal grandmother, mother, and paternal grandmother; Heart Disease - Other in his maternal grandfather and paternal grandfather; Heart Failure in his maternal grandmother; Lipid Disorder in his father; Myocardial Infarction in his maternal grandfather and paternal grandfather; Uterine Cancer in his paternal grandmother. MEDICATIONS: Current Outpatient Medications Medication Instructions carveDILOL (COREG) 50 mg, Oral, 2 TIMES DAILY WITH MEALS cholecalciferol (VITAMIN D3) 5,000 Units, Oral, DAILY citalopram (CELEXA) 20 mg, Oral, DAILY Dulaglutide 1.5 mg, Subcutaneous, WEEKLY Empagliflozin (JARDIANCE) 10 mg, Oral, DAILY Enoxaparin Sodium (LOVENOX SC) 135 mg, Subcutaneous, EVERY 12 HOURS furOSEmide (LASIX) 40 mg, Oral, 2 TIMES DAILY, Please note pt can take an extra 20 mg by mouth daily only as needed Hcstde-Cgizbawds-Xmuqmgtp-MSM (GLUCOSAMINE CHONDROITIN JOINT PO) Oral, DAILY magnesium oxide (MAG-OX) 400 mg, Oral, DAILY METHIMAZOLE PO 5 mg, Oral, DAILY Multiple Vitamins-Minerals (MULTIVITAMIN ADULT PO) 1 tablet, Oral, DAILY Probiotic Product (PROBIOTIC ADVANCED PO) Oral, NEEDED sacubitril-valsartan 97-103 MG tablet 1 tablet, Oral, 2 TIMES DAILY spironolactone (ALDACTONE) 25 mg, Oral, DAILY ALLERGIES: Allergies Allergen Reactions Carole Porter [facility] [Perflutren Lipid Microsphere] Back pain center REVIEW OF SYSTEMS The patient denies any chest pain on exertion, shortness of breath, orthopnea or palpitation. ROS also negative for fever, chills, headache, dizziness, cough, sputum, nausea, vomiting, diarrhea, constipation, dysuria, hematuria, rashes or easy bleeding. All other systems were reviewed and were negative OBJECTIVE Vitals: 10/03/21 1247 BP: 107/59 Pulse: 81 Resp: 18 Temp: 97.9 degrees F (36.6 degrees C) TempSrc: Temporal SpO2: 94% Weight: 134.3 kg (296 lb) Height: 1.93 m (6' 4 ) Body mass index is 36.03 kg/m . General:46 y.o. male in NAD, alert and oriented x 3 HEENT: Normocephalic, pupils equal round and reactive to light, EOMI, moist mucous membranes noted. Neck: Full ROM, supple, no lymphadenopathy Pulmonary: bilateral breath sounds, clear to auscultation, no use of accessory muscles, no wheezes/rhonchi/rales Cardiovascular:Regular rate and rhythm. Normal S1, S2, No murmurs, rubs or gallops Abdomen: soft, nontender, nondistended, normoactive bowel sounds, No Hepatosplenomegaly Extremities: No cyanosis, clubbing or edema. Normal peripheral pulses noted. Neuro: Cranial nerves are grossly intact, No focal deficits noted, moving all 4 extremities. Skin: warm, dry, intact; no erythema or rash DATA REVIEW Lab Results Component Value Date HCT 45.8 11/03/2019 Lab Results Component Value Date SODIUM 141 03/29/2019 POTASSIUM 4.3 03/29/2019 CHLORIDE 102 03/29/2019 CO2 27 03/29/2019 BUN 18 03/29/2019 CREATSERUM 0.89 11/03/2019 GLUCOSE 135 (H) 06/29/2019 No results found for: INR, PT No results found for: HGBA1C In addition to the labs above, I have personally reviewed all laboratory data in the EMR and CareEverywhere Imaging/EKG and procedures: I have personally reviewed the EKG and my findings are Normal Sinus Rhythm, normal axis, no blocks, no ST & T wave abnormalities, non-acute ECHO: Results for orders placed during the hospital encounter of 06/30/19 ECHOCARDIOGRAM 06/30/2019 (Final) Interpretation Summary Technically poor study. Left Ventricle: Chamber size is enlarged. Normal wall thickness. Moderate global hypokinesis. Unable to assess regional wall motion. Ejection fraction is moderately reduced (30 - 35%). Diastolic function is consistent with impaired relaxation (grade I). Global longitudinal strain is -7.9%. Right Ventricle: Chamber size is normal. Systolic function is normal. Left Atrium: Chamber size is normal. Right Atrium: Chamber size is normal. No significant valvular disease. I have personally reviewed the above imaging findings in the chart. ASSESSMENT AND PLAN Pre-operative Risk Evaluation - Katrina Melvin is at a Acceptable risk for a intermediate risk surgery - Per ACC/AHA guidelines, the patient requires no further testing at this time. - METS >4: yes, good exercise tolerance - Patient Meets the Following RCRI Criteria (RCRI): *History of congestive heart failure *History of cerebrovascular disease: 2 criteria suggesting a 10.1% risk of major cardiac events - Please utilize continuous pulse oximetry & telemetry for at least 24 hours and consider using CPAP or BiPAP when patient is sleeping for patients if High risk for KHARI Dilated cardiomyopathy Chronic systolic heart failure - on lasix prn, entresto, spironolactone, carvedilol -LVEF 35% per TTE 06/2019, MRI 45% LVEF - 10/2019 -following [facility] cardiology, Dr. Hernandez -per Dr. Hernandez His CV risk for planned orthopedic (rotator cuff) procedure is acceptable, and no further testing pre-op is required. He should continue on his present CV medications perioperatively. -patient notified to continue heart medications as prescribed perioperatively Hx of saddle PE/DVT -provoked after knee injury -treated, remains on therapeutic lovenox, plans to switch to Eliquis after weight loss -per hematology, Dr. Winter For upcoming surgery, hold Lovenox after the morning dose day prior to surgery. May resume once deemed safe by surgeon. Hx of TIA -mild memory issues, otherwise no residual deficits Diabetes Mellitus type 2 -managed on empaglifozin and dulaglutide --denies episodes of hypoglycemia -hgb a1c 8.7 -recommend SSI periop, resume home meds when tolerating PO post-op Hyperthyroidism -controlled with methimazole Chronic diarrhea and constipation -on probiotic as needed -improving with diet changes -currently no issues Body mass index is 36.03 kg/m .:- Lifestyle modifications Perioperative medication recommendations: carveDILOL 25 MG tablet Ok to take morning of surgery citalopram 20 MG tablet Ok to take morning of surgery Dulaglutide 1.5 MG/0.5ML Solution Pen-injector injection Do Not take the morning of surgery Empagliflozin 10 MG tablet Do Not take 3 days prior to surgery Enoxaparin Sodium (LOVENOX SC) Following hematology recommendations ...hold Lovenox after the morning dose day prior to surgery. May resume once deemed safe by surgeon. furOSEmide 40 MG tablet Do Not take the morning of surgery Xrprwz-Fzipksvft-Qlpsjkgl-MSM (GLUCOSAMINE CHONDROITIN JOINT PO) Do Not take one week before surgery magnesium oxide 400 MG Tab Do Not take the morning of surgery METHIMAZOLE PO Ok to take morning of surgery Multiple Vitamins-Minerals (MULTIVITAMIN ADULT PO) Do Not take 3 days prior to surgery Probiotic Product (PROBIOTIC ADVANCED PO) Do Not take the morning of surgery sacubitril-valsartan 97-103 MG tablet Do not take night before or morning of surgery spironolactone 25 MG tablet Do Not take the morning of surgery Vitamin D3 2000 units Cap Do Not take 3 days prior to surgery Above recommendations were discussed with the patient, and patient understood and agreed with the plan outlined above. Thank you for allowing us to participate in the care of Katrina Melvin. ABDIAZIZ Bai Division of Hospital Medicine documented in this encounter [facility] 10-03-2021 Instructions ABDIAZIZ Bai - 10/03/2021 12:53 PM EDT Patient Name: Katrina Melvin You will be contacted 2 business days prior to your procedure date and will be notified of arrival time and where to register. What you need to bring to the hospital: 1. A photo ID 2. Insurance Card 3. Co-pay for insurance if applicable 4. A list of ALL MEDICATIONS you are currently taking including the dose and times that you take them You will be turning this list over to your nurse. 5. Crutches/walker if applicable. 6. CPAP machine if applicable. What to leave at home: 1. ALL valuables, cell phone, wallet, purse 2. ALL jewelry including watches, wedding bands and ANY FORM of piercing. 3. DO NOT wear lotion, makeup, nail hungarian, contact lens, or perfume/cologne. 4. DO NOT bring actual pill bottles or home medications unless instructed to do so. PRIOR to your surgery: 1. Do NOT shave, or pluck hair from anywhere near the surgical site the day of or the day before surgery. Bathe the night before and the morning of surgery. 2. DO NOT eat or drink ANYTHING after midnight or the day of surgery. As well as, no gum or breath mints after midnight. 3. DO NOT smoke ANYTHING after midnight the night before your surgery. 4. You may brush your teeth and rinse/gargle you mouth after midnight but avoid drinking too much water. 5. ABSTAIN from using nicotine in any form around the time of your surgery. Smoking or Chewing tobacco can delay wound healing and result in increased risk of infection after surgery. 6. ABSTAIN from alcohol or drug use for one week prior to surgery. Do not show up to your surgery intoxicated or under the influence of any drugs. Drug use within 24 hour of any kind could result in a cancellation of your procedure 7. If you are seen in ER or have any unplanned medical visits between now and your surgery date, please notify your surgeon's office prior to your day of surgery. THE DAY OF your surgery: WHAT TO DO ABOUT YOUR MEDICATIONS: carveDILOL 25 MG tablet Ok to take morning of surgery citalopram 20 MG tablet Ok to take morning of surgery Dulaglutide 1.5 MG/0.5ML Solution Pen-injector injection Do Not take the morning of surgery Empagliflozin 10 MG tablet Do Not take 3 days prior to surgery Enoxaparin Sodium (LOVENOX SC) Following hematology recommendations ...hold Lovenox after the morning dose day prior to surgery. May resume once deemed safe by surgeon. furOSEmide 40 MG tablet Do Not take the morning of surgery Dhofjy-Mkibuyhqj-Legacnjm-MSM (GLUCOSAMINE CHONDROITIN JOINT PO) Do Not take one week before surgery magnesium oxide 400 MG Tab Do Not take the morning of surgery METHIMAZOLE PO Ok to take morning of surgery Multiple Vitamins-Minerals (MULTIVITAMIN ADULT PO) Do Not take 3 days prior to surgery Probiotic Product (PROBIOTIC ADVANCED PO) Do Not take the morning of surgery sacubitril-valsartan 97-103 MG tablet Do not take night before or morning of surgery spironolactone 25 MG tablet Do Not take the morning of surgery Vitamin D3 2000 units Cap Do Not take 3 days prior to surgery Follow instructions per wire preparation worker if differ from above instructions. Medications that may need to be STOPPED 24 hours or greater BEFORE surgery. 1. All herbal medications should be stopped 7 days before surgery. (fish oil, glucosamine, garlic, tumeric, etc) 2. Hold NSAIDS for 5 days (Aleve, Motrin, Ibuprofen, Advil, Naproxen, Diclofenac, Celebrex and Meloxicam). It is okay to take Tylenol. 3. Hold Multi-Vitamins for 3 days. 4. Please contact [facility] if you have changes to your medications before surgery. We work in conjunction with your surgeon but cannot any specific questions about your surgery. If you have any questions specific to our visit today for your preoperative testing, please contact the [facility] at [phone]. Please direct any questions regarding your surgery to your surgeon s office documented in this encounter [facility] 10-03-2021 History and physical note Pre-Operative Assessment (PAT) Outpatient Clinic Note H&P Date of Evaluation: 10/03/2021 Date of Surgery: 10/15/2021 Surgeon: Dr. Manzanares Pre-Op Diagnosis: Right shoulder pain Planned Procedure: ARTHROSCOPY SHOULDER W/ ROTATOR CUFF REPAIR - Right CHIEF COMPLAINT Preoperative cardiovascular testing and medication management for major surgery HISTORY Katrina Melvin is a 46 y.o. male with the below history presenting for preoperative evaluation. Chronic medical problems are stable with no acute changes in symptoms or medications: Yes Current or ongoing urinary symptoms: No Anesthesia: Personal or Family history of problems related to anesthesia (ex.Malignant Hyperthermia): No History of difficult intubations: No Pacer/AICD: No; PONV: No Penicillin Allergy: No Cardiac: Hx of Cardiac Disease/Stents - No Current Symptoms of Angina - No Current Symptoms of Decompensated Heart Failure - No Use of Beta-Blockers - Yes Current Functional Status ? 4 - Yes Pulmonary: History of KHARI: no History of asthma or COPD: No Smoker: no STOP-BANG Risk Assessment: STOP Questions o Do you snore? No o Frequently tired during the day? No o Observed gasping or choking episodes while asleep? No o Diagnosis of/or treated for high blood pressure? Yes BANG Questions o Age more than 50? No o Gender assignment at : Male? Yes o Neck circumference greater than 40 cm? Yes o BMI more then 35? - Body mass index is 36.03 kg/m . Yes High risk: No (High risk ? 5 STOP-BANG; STOP ? 2 AND Male; STOP ? 2 AND BMI > 35 kg/m2; STOP ? 2 AND Neck ? 40 cm) MEDICAL HISTORY: Past Medical History: Diagnosis Date Bleeding disorder 04/10/2016 Cardiac angina Cardiomyopathy Congestive heart failure Diabetes mellitus DVT (deep venous thrombosis) 2015 Essential hypertension, benign History of blood clots 2016 heart Hyperthyroidism Pulmonary embolism 2016 TIA (transient ischemic attack) 06/2016 Vascular disease Past Surgical History: Procedure Laterality Date ANKLE SURGERY Left 1992 SOCIAL HISTORY: reports that he quit smoking about 19 years ago. He has a 5.00 pack-year smoking history. He quit smokeless tobacco use about 13 years ago. He reports current alcohol use. He reports previous drug use. Drug: Marijuana. FAMILY HISTORY: family history includes Bleeding or Clotting Problems in his mother; Diabetes in his father, maternal grandmother, mother, and paternal grandmother; Heart Disease - Other in his maternal grandfather and paternal grandfather; Heart Failure in his maternal grandmother; Lipid Disorder in his father; Myocardial Infarction in his maternal grandfather and paternal grandfather; Uterine Cancer in his paternal grandmother. MEDICATIONS: Current Outpatient Medications Medication Instructions carveDILOL (COREG) 50 mg, Oral, 2 TIMES DAILY WITH MEALS cholecalciferol (VITAMIN D3) 5,000 Units, Oral, DAILY citalopram (CELEXA) 20 mg, Oral, DAILY Dulaglutide 1.5 mg, Subcutaneous, WEEKLY Empagliflozin (JARDIANCE) 10 mg, Oral, DAILY Enoxaparin Sodium (LOVENOX SC) 135 mg, Subcutaneous, EVERY 12 HOURS furOSEmide (LASIX) 40 mg, Oral, 2 TIMES DAILY, Please note pt can take an extra 20 mg by mouth daily only as needed Tvbmtt-Orwuodkgh-Rtdmjkkm-MSM (GLUCOSAMINE CHONDROITIN JOINT PO) Oral, DAILY magnesium oxide (MAG-OX) 400 mg, Oral, DAILY METHIMAZOLE PO 5 mg, Oral, DAILY Multiple Vitamins-Minerals (MULTIVITAMIN ADULT PO) 1 tablet, Oral, DAILY Probiotic Product (PROBIOTIC ADVANCED PO) Oral, NEEDED sacubitril-valsartan 97-103 MG tablet 1 tablet, Oral, 2 TIMES DAILY spironolactone (ALDACTONE) 25 mg, Oral, DAILY ALLERGIES: Allergies [facility]ergen Reactions [facility] [Perflutren Lipid Microsphere] Back pain center REVIEW OF SYSTEMS The patient denies any chest pain on exertion, shortness of breath, orthopnea or palpitation. ROS also negative for fever, chills, headache, dizziness, cough, sputum, nausea, vomiting, diarrhea, constipation, dysuria, hematuria, rashes or easy bleeding. All other systems were reviewed and were negative OBJECTIVE Vitals: 10/03/21 1247 BP: 107/59 Pulse: 81 Resp: 18 Temp: 97.9 degrees F (36.6 degrees C) TempSrc: Temporal SpO2: 94% Weight: 134.3 kg (296 lb) Height: 1.93 m (6' 4 ) Body mass index is 36.03 kg/m . General:46 y.o. male in NAD, alert and oriented x 3 HEENT: Normocephalic, pupils equal round and reactive to light, EOMI, moist mucous membranes noted. Neck: Full ROM, supple, no lymphadenopathy Pulmonary: bilateral breath sounds, clear to auscultation, no use of accessory muscles, no wheezes/rhonchi/rales Cardiovascular:Regular rate and rhythm. Normal S1, S2, No murmurs, rubs or gallops Abdomen: soft, nontender, nondistended, normoactive bowel sounds, No Hepatosplenomegaly Extremities: No cyanosis, clubbing or edema. Normal peripheral pulses noted. Neuro: Cranial nerves are grossly intact, No focal deficits noted, moving all 4 extremities. Skin: warm, dry, intact; no erythema or rash DATA REVIEW Lab Results Component Value Date HCT 45.8 11/03/2019 Lab Results Component Value Date SODIUM 141 03/29/2019 POTASSIUM 4.3 03/29/2019 CHLORIDE 102 03/29/2019 CO2 27 03/29/2019 BUN 18 03/29/2019 CREATSERUM 0.89 11/03/2019 GLUCOSE 135 (H) 06/29/2019 No results found for: INR, PT No results found for: HGBA1C In addition to the labs above, I have personally reviewed all laboratory data in the EMR and CareEverywhere Imaging/EKG and procedures: I have personally reviewed the EKG and my findings are Normal Sinus Rhythm, normal axis, no blocks, no ST & T wave abnormalities, non-acute ECHO: Results for orders placed during the hospital encounter of 06/30/19 ECHOCARDIOGRAM 06/30/2019 (Final) Interpretation Summary Technically poor study. Left Ventricle: Chamber size is enlarged. Normal wall thickness. Moderate global hypokinesis. Unable to assess regional wall motion. Ejection fraction is moderately reduced (30 - 35%). Diastolic function is consistent with impaired relaxation (grade I). Global longitudinal strain is -7.9%. Right Ventricle: Chamber size is normal. Systolic function is normal. Left Atrium: Chamber size is normal. Right Atrium: Chamber size is normal. No significant valvular disease. I have personally reviewed the above imaging findings in the chart. ASSESSMENT AND PLAN Pre-operative Risk Evaluation - Katrina Melvin is at a Acceptable risk for a intermediate risk surgery - Per ACC/AHA guidelines, the patient requires no further testing at this time. - METS >4: yes, good exercise tolerance - Patient Meets the Following RCRI Criteria (RCRI): *History of congestive heart failure *History of cerebrovascular disease: 2 criteria suggesting a 10.1% risk of major cardiac events - Please utilize continuous pulse oximetry & telemetry for at least 24 hours and consider using CPAP or BiPAP when patient is sleeping for patients if High risk for KHARI Dilated cardiomyopathy Chronic systolic heart failure - on lasix prn, entresto, spironolactone, carvedilol -LVEF 35% per TTE 06/2019, MRI 45% LVEF - 10/2019 -following [facility] cardiology, Dr. Hernandez -per Dr. Hernandez His CV risk for planned orthopedic (rotator cuff) procedure is acceptable, and no further testing pre-op is required. He should continue on his present CV medications perioperatively. -patient notified to continue heart medications as prescribed perioperatively Hx of saddle PE/DVT -provoked after knee injury -treated, remains on therapeutic lovenox, plans to switch to Eliquis after weight loss -per hematology, Dr. Winetr For upcoming surgery, hold Lovenox after the morning dose day prior to surgery. May resume once deemed safe by surgeon. Hx of TIA -mild memory issues, otherwise no residual deficits Diabetes Mellitus type 2 -managed on empaglifozin and dulaglutide --denies episodes of hypoglycemia -hgb a1c 8.7 -recommend SSI periop, resume home meds when tolerating PO post-op Hyperthyroidism -controlled with methimazole Chronic diarrhea and constipation -on probiotic as needed -improving with diet changes -currently no issues Body mass index is 36.03 kg/m .:- Lifestyle modifications Perioperative medication recommendations: carveDILOL 25 MG tablet Ok to take morning of surgery citalopram 20 MG tablet Ok to take morning of surgery Dulaglutide 1.5 MG/0.5ML Solution Pen-injector injection Do Not take the morning of surgery Empagliflozin 10 MG tablet Do Not take 3 days prior to surgery Enoxaparin Sodium (LOVENOX SC) Following hematology recommendations ...hold Lovenox after the morning dose day prior to surgery. May resume once deemed safe by surgeon. furOSEmide 40 MG tablet Do Not take the morning of surgery Qhnbxe-Pzyamwlfu-Ugqrbraw-MSM (GLUCOSAMINE CHONDROITIN JOINT PO) Do Not take one week before surgery magnesium oxide 400 MG Tab Do Not take the morning of surgery METHIMAZOLE PO Ok to take morning of surgery Multiple Vitamins-Minerals (MULTIVITAMIN ADULT PO) Do Not take 3 days prior to surgery Probiotic Product (PROBIOTIC ADVANCED PO) Do Not take the morning of surgery sacubitril-valsartan 97-103 MG tablet Do not take night before or morning of surgery spironolactone 25 MG tablet Do Not take the morning of surgery Vitamin D3 2000 units Cap Do Not take 3 days prior to surgery Above recommendations were discussed with the patient, and patient understood and agreed with the plan outlined above. Thank you for allowing us to participate in the care of Katrina Melvin. ABDIAZIZ Bai Division of Hospital Medicine [facility] 10-03-2021 History and physical note Pre-Operative Assessment (PAT) Outpatient Clinic Note H&P Date of Evaluation: 10/03/2021 Date of Surgery: 10/15/2021 Surgeon: Dr. Manzanares Pre-Op Diagnosis: Right shoulder pain Planned Procedure: ARTHROSCOPY SHOULDER W/ ROTATOR CUFF REPAIR - Right CHIEF COMPLAINT Preoperative cardiovascular testing and medication management for major surgery HISTORY Katrina Melvin is a 46 y.o. male with the below history presenting for preoperative evaluation. Chronic medical problems are stable with no acute changes in symptoms or medications: Yes Current or ongoing urinary symptoms: No Anesthesia: Personal or Family history of problems related to anesthesia (ex.Malignant Hyperthermia): No History of difficult intubations: No Pacer/AICD: No; PONV: No Penicillin Allergy: No Cardiac: Hx of Cardiac Disease/Stents - No Current Symptoms of Angina - No Current Symptoms of Decompensated Heart Failure - No Use of Beta-Blockers - Yes Current Functional Status ? 4 - Yes Pulmonary: History of KHARI: no History of asthma or COPD: No Smoker: no STOP-BANG Risk Assessment: STOP Questions o Do you snore? No o Frequently tired during the day? No o Observed gasping or choking episodes while asleep? No o Diagnosis of/or treated for high blood pressure? Yes BANG Questions o Age more than 50? No o Gender assignment at : Male? Yes o Neck circumference greater than 40 cm? Yes o BMI more then 35? - Body mass index is 36.03 kg/m . Yes High risk: No (High risk ? 5 STOP-BANG; STOP ? 2 AND Male; STOP ? 2 AND BMI > 35 kg/m2; STOP ? 2 AND Neck ? 40 cm) MEDICAL HISTORY: Past Medical History: Diagnosis Date Bleeding disorder 04/10/2016 Cardiac angina Cardiomyopathy Congestive heart failure Diabetes mellitus DVT (deep venous thrombosis) 2015 Essential hypertension, benign History of blood clots 2015 heart Hyperthyroidism Pulmonary embolism 2015 TIA (transient ischemic attack) 06/2016 Vascular disease Past Surgical History: Procedure Laterality Date ANKLE SURGERY Left 1992 SOCIAL HISTORY: reports that he quit smoking about 19 years ago. He has a 5.00 pack-year smoking history. He quit smokeless tobacco use about 13 years ago. He reports current alcohol use. He reports previous drug use. Drug: Marijuana. FAMILY HISTORY: family history includes Bleeding or Clotting Problems in his mother; Diabetes in his father, maternal grandmother, mother, and paternal grandmother; Heart Disease - Other in his maternal grandfather and paternal grandfather; Heart Failure in his maternal grandmother; Lipid Disorder in his father; Myocardial Infarction in his maternal grandfather and paternal grandfather; Uterine Cancer in his paternal grandmother. MEDICATIONS: Current Outpatient Medications Medication Instructions carveDILOL (COREG) 50 mg, Oral, 2 TIMES DAILY WITH MEALS cholecalciferol (VITAMIN D3) 5,000 Units, Oral, DAILY citalopram (CELEXA) 20 mg, Oral, DAILY Dulaglutide 1.5 mg, Subcutaneous, WEEKLY Empagliflozin (JARDIANCE) 10 mg, Oral, DAILY Enoxaparin Sodium (LOVENOX SC) 135 mg, Subcutaneous, EVERY 12 HOURS furOSEmide (LASIX) 40 mg, Oral, 2 TIMES DAILY, Please note pt can take an extra 20 mg by mouth daily only as needed Msnfov-Nqugzuwnf-Lxdetsra-MSM (GLUCOSAMINE CHONDROITIN JOINT PO) Oral, DAILY magnesium oxide (MAG-OX) 400 mg, Oral, DAILY METHIMAZOLE PO 5 mg, Oral, DAILY Multiple Vitamins-Minerals (MULTIVITAMIN ADULT PO) 1 tablet, Oral, DAILY Probiotic Product (PROBIOTIC ADVANCED PO) Oral, NEEDED sacubitril-valsartan 97-103 MG tablet 1 tablet, Oral, 2 TIMES DAILY spironolactone (ALDACTONE) 25 mg, Oral, DAILY ALLERGIES: Allergies Allergen Reactions [facility]Perflutren Lipid Microsphere] [facility] REVIEW OF SYSTEMS The patient denies any chest pain on exertion, shortness of breath, orthopnea or palpitation. ROS also negative for fever, chills, headache, dizziness, cough, sputum, nausea, vomiting, diarrhea, constipation, dysuria, hematuria, rashes or easy bleeding. All other systems were reviewed and were negative OBJECTIVE Vitals: 10/03/21 1247 BP: 107/59 Pulse: 81 Resp: 18 Temp: 97.9 degrees F (36.6 degrees C) TempSrc: Temporal SpO2: 94% Weight: 134.3 kg (296 lb) Height: 1.93 m (6' 4 ) Body mass index is 36.03 kg/m . General:46 y.o. male in NAD, alert and oriented x 3 HEENT: Normocephalic, pupils equal round and reactive to light, EOMI, moist mucous membranes noted. Neck: Full ROM, supple, no lymphadenopathy Pulmonary: bilateral breath sounds, clear to auscultation, no use of accessory muscles, no wheezes/rhonchi/rales Cardiovascular:Regular rate and rhythm. Normal S1, S2, No murmurs, rubs or gallops Abdomen: soft, nontender, nondistended, normoactive bowel sounds, No Hepatosplenomegaly Extremities: No cyanosis, clubbing or edema. Normal peripheral pulses noted. Neuro: Cranial nerves are grossly intact, No focal deficits noted, moving all 4 extremities. Skin: warm, dry, intact; no erythema or rash DATA REVIEW Lab Results Component Value Date HCT 45.8 11/03/2019 Lab Results Component Value Date SODIUM 141 03/29/2019 POTASSIUM 4.3 03/29/2019 CHLORIDE 102 03/29/2019 CO2 27 03/29/2019 BUN 18 03/29/2019 CREATSERUM 0.89 11/03/2019 GLUCOSE 135 (H) 06/29/2019 No results found for: INR, PT No results found for: HGBA1C In addition to the labs above, I have personally reviewed all laboratory data in the EMR and CareEverywhere Imaging/EKG and procedures: I have personally reviewed the EKG and my findings are Normal Sinus Rhythm, normal axis, no blocks, no ST & T wave abnormalities, non-acute ECHO: Results for orders placed during the hospital encounter of 06/30/19 ECHOCARDIOGRAM 06/30/2019 (Final) Interpretation Summary Technically poor study. Left Ventricle: Chamber size is enlarged. Normal wall thickness. Moderate global hypokinesis. Unable to assess regional wall motion. Ejection fraction is moderately reduced (30 - 35%). Diastolic function is consistent with impaired relaxation (grade I). Global longitudinal strain is -7.9%. Right Ventricle: Chamber size is normal. Systolic function is normal. Left Atrium: Chamber size is normal. Right Atrium: Chamber size is normal. No significant valvular disease. I have personally reviewed the above imaging findings in the chart. ASSESSMENT AND PLAN Pre-operative Risk Evaluation - Katrina Melvin is at a Acceptable risk for a intermediate risk surgery - Per ACC/AHA guidelines, the patient requires no further testing at this time. - METS >4: yes, good exercise tolerance - Patient Meets the Following RCRI Criteria (RCRI): *History of congestive heart failure *History of cerebrovascular disease: 2 criteria suggesting a 10.1% risk of major cardiac events - Please utilize continuous pulse oximetry & telemetry for at least 24 hours and consider using CPAP or BiPAP when patient is sleeping for patients if High risk for KHARI Dilated cardiomyopathy Chronic systolic heart failure - on lasix prn, entresto, spironolactone, carvedilol -LVEF 35% per TTE 06/2019, MRI 45% LVEF - 10/2019 -following [facility] cardiology, Dr. Hernandez -per Dr. Hernandez His CV risk for planned orthopedic (rotator cuff) procedure is acceptable, and no further testing pre-op is required. He should continue on his present CV medications perioperatively. -patient notified to continue heart medications as prescribed perioperatively Hx of saddle PE/DVT -provoked after knee injury -treated, remains on therapeutic lovenox, plans to switch to Eliquis after weight loss -per hematology, Dr. Winter For upcoming surgery, hold Lovenox after the morning dose day prior to surgery. May resume once deemed safe by surgeon. Hx of TIA -mild memory issues, otherwise no residual deficits Diabetes Mellitus type 2 -managed on empaglifozin and dulaglutide --denies episodes of hypoglycemia -hgb a1c 8.7 -recommend SSI periop, resume home meds when tolerating PO post-op Hyperthyroidism -controlled with methimazole Chronic diarrhea and constipation -on probiotic as needed -improving with diet changes -currently no issues Body mass index is 36.03 kg/m .:- Lifestyle modifications Perioperative medication recommendations: carveDILOL 25 MG tablet Ok to take morning of surgery citalopram 20 MG tablet Ok to take morning of surgery Dulaglutide 1.5 MG/0.5ML Solution Pen-injector injection Do Not take the morning of surgery Empagliflozin 10 MG tablet Do Not take 3 days prior to surgery Enoxaparin Sodium (LOVENOX SC) Following hematology recommendations ...hold Lovenox after the morning dose day prior to surgery. May resume once deemed safe by surgeon. furOSEmide 40 MG tablet Do Not take the morning of surgery Anlzds-Pkrjpcjfp-Hwsnreda-MSM (GLUCOSAMINE CHONDROITIN JOINT PO) Do Not take one week before surgery magnesium oxide 400 MG Tab Do Not take the morning of surgery METHIMAZOLE PO Ok to take morning of surgery Multiple Vitamins-Minerals (MULTIVITAMIN ADULT PO) Do Not take 3 days prior to surgery Probiotic Product (PROBIOTIC ADVANCED PO) Do Not take the morning of surgery sacubitril-valsartan 97-103 MG tablet Do not take night before or morning of surgery spironolactone 25 MG tablet Do Not take the morning of surgery Vitamin D3 2000 units Cap Do Not take 3 days prior to surgery Above recommendations were discussed with the patient, and patient understood and agreed with the plan outlined above. Thank you for allowing us to participate in the care of Katrina Moore Veronica. ABDIAZIZ Bai Division of Hospital Medicine documented in this encounter [facility] 10-03-2021 Miscellaneous Notes Addended by: LIZANDRO REYES on: 10/07/2021 02:17 PM Modules accepted: Orders documented in this encounter [facility] 10-03-2021 Note Addended by: LIZANDRO REYES on: 10/07/2021 02:17 PM Modules accepted: Orders [facility] 09-19-2021 Note HNO ID: [id number] Author: Al Winter, DO Service: ? Author Type: Physician Type: Progress Notes Filed: 09/19/2021 11:50 AM Note Text: HPI: The patient is a 45 yo male with h/o hyperthyroidism, DM (now insulin requiring) and VTE. ? Injured left knee [place] 02[place]14/[place]. Worked for about 2 weeks following the injury. Went to ED and was told tore left knee meniscus. Treated conservatively and was scheduled to have surgery in April. However, was noticing shortness of breath around beginning of March. Was having chest pain off and on as well over the month prior to ED presentation 04/10/2016. US at that time showed extensive left femoral vein DVT extending into distal veins. Was started on Xarelto at that time he was having Right sided chest pain. He was told in ED that if pain moved come back. By the next day pain was substernal and was having pain down left arm. Presented to ED 04/11/2016 and underwent CTA: FINDINGS: There is a large left main pulmonary arm of the embolism extending to the inferior basilar segments and superior apical segments. There is partial thrombus within the right inferior basilar segment as seen on series 2 image 138. There is a linear hypodensity extending across the left and right pulmonary artery consistent with linear partial thrombus. Normal enhancement of the bilateral peripheral pulmonary arteries. There is no demonstrated pulmonary embolism. Normal thoracic aorta and visualized great vessels. There is no demonstrated aortic dissection. Normal heart and pericardium. Normal mediastinum. Normal hilar regions. Normal visualized trachea and bronchi. The lungs are well expanded. Normal pulmonary parenchyma. Normal pleura. Normal chest wall structures. Normal osseous structures. Normal visualized upper abdomen. Anticoagulated with Xarelto. He then had recurrence of chest pain and presented to the ER at the end of May. A repeat CTA demonstrated that there is interval resolution of thrombus in the left pulmonary artery extending across the bifurcation but there was still residual clot within most of the lower left lobe distribution. He had hypercoagulable testing that was unremarkable. Please see results in [facility] electronic record 06/21/2016. However the CT scan was also notable for an enlarged lymph node at the origin of the left pulmonary artery measuring 2.7 cm x 1.5 x 2.5 cm. There was also splenomegaly with the spleen measuring approximately 14.2 cm in craniocaudal dimension. ? Patient had recurrent DVT and pulmonary embolism on Xarelto 20mg once daily in 08/17/2016. He was then rotated to Lovenox injections. Concern was Xarelto was not providing adequate anticoagulation secondary to weight. He was diagnosed with cardiomyopathy. Etiology not determined. He was evaluated at [facility] and subsequently [facility]. Evidently cardiac catheterization demonstrated normal coronary arteries. On medical treatment for cardiomyopathy and there had been improvement in ejection fraction. Presents for ongoing oncologic management. Interim history: Fell at work on ice and tore left rotator cuff and fractured scapula. Needs laparoscopic rotator cuff repair. Occasional swelling left leg at the end of the day. Doesn't use compression stockings consistently unless sitting most of the day. Tolerating Lovenox well. No unusual bleeding or unexplained bruising. ? PMH, medications, social history and family history and allergies personally reviewed by me today. Any changes documented in appropriate section. ? ROS: Constitutional: Denies episodes of fever and night sweats. Not significantly fatigued. Normal appetite. Neuro: Denies VILLALBA, vertigo, dizziness and imbalance. Denies symptoms of neuropathy. HEENT: No recent change in voice, vision or hearing. Resp: Denies cough, wheeze and hemoptysis. Denies shortness of breath at rest. CVS: Denies exertional chest pain, PND, orthopnea and LE edema. GI: Denies dysgeusia. Denies symptoms of stomatitis. Denies dysphagia and odynophagia. Denies reflux, n/v, change in bowel habits and abdominal pain. : Denies dysuria or gross hematuria. No symptoms of bladder outlet obstruction. Endo: Denies hot flashes. Denies polyuria and polydipsia. Denies heat and cold intolerance. Derm: Denies rash. Denies jaundice and diffuse pruritis. Heme: See above. Psych: Normal mood. ? PHYSICAL EXAM: VITALS: Blood pressure 116/71, pulse 80, temperature 36.2 ?C (97.1 ?F), temperature source Temporal, weight 133.8 kg (295 lb). Well-appearing and in no acute distress. EYES: Sclerae are anicteric bilaterally. NECK: Supple. LYMPHATIC: There is no palpable cervical or supraclavicular adenopathy. RESPIRATORY: Inspiratory breath sounds are of diminished intensity in all fischer. CARDIOVASCULAR: Rhythm is regular. ABDOMEN: The abdomen is nondistended. Ex (more content not included)... [facility] 09-19-2021 History of Present illness Narrative HPI: The patient is a 45 yo male with h/o hyperthyroidism, DM (now insulin requiring) and VTE. Inj[place] left [place] 02[place]14[place]. Worked for about 2 weeks following the injury. Went to ED and was told tore left knee meniscus. Treated conservatively and was scheduled to have surgery in April. However, was noticing shortness of breath around beginning of March. Was having chest pain off and on as well over the month prior to ED presentation 04/10/2016. US at that time showed extensive left femoral vein DVT extending into distal veins. Was started on Xarelto at that time he was having Right sided chest pain. He was told in ED that if pain moved come back. By the next day pain was substernal and was having pain down left arm. Presented to ED 04/11/2016 and underwent CTA: FINDINGS: There is a large left main pulmonary arm of the embolism extending to the inferior basilar segments and superior apical segments. There is partial thrombus within the right inferior basilar segment as seen on series 2 image 138. There is a linear hypodensity extending across the left and right pulmonary artery consistent with linear partial thrombus. Normal enhancement of the bilateral peripheral pulmonary arteries. There is no demonstrated pulmonary embolism. Normal thoracic aorta and visualized great vessels. There is no demonstrated aortic dissection. Normal heart and pericardium. Normal mediastinum. Normal hilar regions. Normal visualized trachea and bronchi. The lungs are well expanded. Normal pulmonary parenchyma. Normal pleura. Normal chest wall structures. Normal osseous structures. Normal visualized upper abdomen. Anticoagulated with Xarelto. He then had recurrence of chest pain and presented to the ER at the end of May. A repeat CTA demonstrated that there is interval resolution of thrombus in the left pulmonary artery extending across the bifurcation but there was still residual clot within most of the lower left lobe distribution. He had hypercoagulable testing that was unremarkable. Please see results in [facility] electronic record 06/21/2016. However the CT scan was also notable for an enlarged lymph node at the origin of the left pulmonary artery measuring 2.7 cm x 1.5 x 2.5 cm. There was also splenomegaly with the spleen measuring approximately 14.2 cm in craniocaudal dimension. Patient had recurrent DVT and pulmonary embolism on Xarelto 20mg once daily in 08/17/2016. He was then rotated to Lovenox injections. Concern was Xarelto was not providing adequate anticoagulation secondary to weight. He was diagnosed with cardiomyopathy. Etiology not determined. He was evaluated at [facility] and subsequently [facility]. Evidently cardiac catheterization demonstrated normal coronary arteries. On medical treatment for cardiomyopathy and there had been improvement in ejection fraction. Presents for ongoing oncologic management. Interim history: Fell at work on ice and tore left rotator cuff and fractured scapula. Needs laparoscopic rotator cuff repair. Occasional swelling left leg at the end of the day. Doesn't use compression stockings consistently unless sitting most of the day. Tolerating Lovenox well. No unusual bleeding or unexplained bruising. PMH, medications, social history and family history and allergies personally reviewed by me today. Any changes documented in appropriate section. ROS: Constitutional: Denies episodes of fever and night sweats. Not significantly fatigued. Normal appetite. Neuro: Denies VILLALBA, vertigo, dizziness and imbalance. Denies symptoms of neuropathy. HEENT: No recent change in voice, vision or hearing. Resp: Denies cough, wheeze and hemoptysis. Denies shortness of breath at rest. CVS: Denies exertional chest pain, PND, orthopnea and LE edema. GI: Denies dysgeusia. Denies symptoms of stomatitis. Denies dysphagia and odynophagia. Denies reflux, n/v, change in bowel habits and abdominal pain. : Denies dysuria or gross hematuria. No symptoms of bladder outlet obstruction. Endo: Denies hot flashes. Denies polyuria and polydipsia. Denies heat and cold intolerance. Derm: Denies rash. Denies jaundice and diffuse pruritis. Heme: See above. Psych: Normal mood. PHYSICAL EXAM: VITALS: Blood pressure 116/71, pulse 80, temperature 36.2 C (97.1 F), temperature source Temporal, weight 133.8 kg (295 lb). Well-appearing and in no acute distress. EYES: Sclerae are anicteric bilaterally. NECK: Supple. LYMPHATIC: There is no palpable cervical or supraclavicular adenopathy. RESPIRATORY: Inspiratory breath sounds are of diminished intensity in all fischer. CARDIOVASCULAR: Rhythm is regular. ABDOMEN: The abdomen is nondistended. Extremities: Very mild generalized swelling of the left leg. Mild varicose veins. SKIN: No jaundice or rash. No petechiae. 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 Melvin is a 45-year-old male who had a provoked extensive DVT with high clot burden pulmonary emboli on Xarelto 20mg once daily. He had evidence of increased pulmonary pressures on presentation. Approximate 2 month follow-up CT scan demonstrated resolution of most of the clot burden but he still had persistent clot especially in the left lower lobe which may have been a function of under anticoagulation given his body weight and drug distribution. -Pulmonary embolism had resolved on Lovenox at therapeutic dosing. Plan: -Continue therapeutic Lovenox. -Advised him to wear compression stocking every day. -Encouraged continued efforts at weight loss. -Rotate Eliquis once weight down to about 260 pounds. -For upcoming surgery, hold Lovenox after the morning dose day prior to surgery. May resume once deemed safe by surgeon. (I42.9) Cardiomyopathy, unspecified type (HCC) Assessment: -Has history of hyperthyroidism. -Hemochromatosis and amyloidosis ruled out. Plan: -Follow up with cardiology. Portions of this documentation were copied and pasted from previous office visit notes in order to provide a cohesive continuity of the history. The note has been reviewed and edited and updated as necessary. Al Winter DO documented in this encounter [facility] 09-14-2021 Miscellaneous Notes I called and spoke to patient and scheduled him for an est complex appointment for Wednesday09/19/21 @ 11:20am, he confirmed this date and time Erin Mercer I'll need to see him for OV for surgical clearance. Al Winter DO Patient is having shoulder surgery and has been advised to contact Dr. Winter and ask for instructions on how he is to take prescribed blood thinner. documented in this encounter [facility] 09-12-2021 History of Present illness Narrative Chief Complaint Patient presents with Left Shoulder - Pain 45 y.o RHD male c/o left shoulder pain. XOA. MRI in chart. States that he had a fall on 08/01/21 and landed onto his elbow which forced his shoulder upward. Pains present all over his shoulder joint. Has limited function. No prior Sx, Pt or CSI. HPI: This is the initial visit to me for this 45 y.o. right hand dominant male who is here today for evaluation of his left shoulder pain. The patient noticed the onset of left shoulder pain 08/01/2021. The patient states that the pain started as a result of a fall from standing. He had no antecedent shoulder pain. 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 The pain is located over globally. The pain does not radiate. Patient does have night pain. The pain is better with rest. The pain is worse with any movement with weight in the arm. Overall, the pain is constant. Mechanical symptoms are present. There is not a sense of instability. The patient does not have neurovascular complaints. Treatment to date: rest, ice and OTC analgesics: not very effective. Patient has not had prior shoulder surgery. 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 He states his EF has improved some recently. Past History Past medical, surgical, family, and social histories have been reviewed and updated with the patient today and are located elsewhere in the medical record. Past Medical History: Diagnosis Date Bleeding disorder 04/10/2016 Cardiac angina Cardiomyopathy Congestive heart failure Diabetes mellitus Essential hypertension, benign Hyperthyroidism TIA (transient ischemic attack) 06/2016 Vascular disease Review of systems Pertinent items are noted in HPI, all other systems were queried and are negative.. PE: Physical examination does reveal a healthy appearing 45 y.o. year old male in no acute distress. He had good skin turgor in his bilateral upper extremities and lower extremities. Spurling's maneuver is negative Range of motion of the cervical spine is full and painless Examination of the left shoulder reveals: Range of motion of the affected shoulder reveals: 130 degrees of passive forward elevation, 110 degrees of active forward elevation oain limited 60 degrees of external rotation at 0 degrees of abduction Internal rotation to back pocket. The contralateral shoulder has 170 degrees of passive forward elevation, 170 degrees of active forward elevation 60 degrees of external rotation at 0 degrees of abduction Internal rotation to T10. There is not AC joint tenderness and pain with cross body adduction. There is tenderness of the long head of the biceps tendon. The patient has resisted manual muscle testing strength of: 5-/5 supraspinatus pain 5/5 infraspinatus 4/5 subscapularis. There is pain with Morel impingement testing. There is pain with Neer impingement testing. Noble's test is positive. Speed's sign is negative. The patient has a positive lift off test, equivocal belly press test, and positive bear hug test. There is not scapulothoracic dyskinesia. Radiographs: Radiographs were obtained of the left shoulder. My independent viewing of the images revealed the following: Moderate glenohumeral arthritis with chondral wear posteriorly MRI: acute full thickness subscapularis tear with edema and effusion. with biceps tendon subluxation, moderate glenohumeral OA noted with preferential posterior wear Assessment: 1. Left shoulder Traumatic subscapularis tear Plan: I reviewed everything with Katrina today. The diagnosis and treatment options were discussed with him in detail today. 6 weeks out from injury I reviewed everything with the patient and given his active lifestyle, history of symptoms interfering with activities of daily living as well as night pain, physical exam and radiographic findings consistent with an acute traumatic rotator cuff tear, we discussed the options of further nonsurgical management versus proceeding with left shoulder arthroscopy. I did discuss that he has underlying arthritis which will make his outcome less predictable and he may require further surgery but given he has no pain or dysfunction in the shoulder prior to this fall, it is reasonable to proceed with repair. He would like to proceed with left shoulder arthroscopy. I will evaluate the entire joint. If a rotator cuff tear is present, I will perform arthroscopic rotator cuff repair, subacromial decompression, and possible arthroscopic versus open subpectoral biceps tenodesis. I also discussed that I may have to fix his subscapularis through an open incision. He understands this and he would like to proceed. He understands that the risks of surgery include but are not limited to infection, nerve damage, bleeding, postoperative stiffness and the chance for rotator cuff retear, chance for deformity and cramping if tenodesis is performed and fails, long-term arthritis and the chance that he could be no better or even worse. He does understand and consent. I answered all of his questions today and he was satisfied. He will need heme clearance for a plan on holding his lovenox and bridging him back. He can resume anticoagulation on POD1 from my perspective. He will also need cardiac clearance given hx of CHF. His HgbA1C was around 9 which puts him at increased risk for infection and not healing. Given this is an acute traumatic tear we will proceed but counseled on improving his glucose control. documented in this encounter [facility] Left shoulder pain, unspecified chronicity [facility] Diagnosis Chronic saddle pulmonary embolism with acute cor pulmonale (HCC)- Primary [facility] Diagnosis Preoperative examination- Primary Preoperative examination, unspecified Chronic systolic heart failure Type 2 diabetes mellitus with hyperglycemia, with long-term current use of insulin Chronic right shoulder pain Pain in joint, shoulder region Rotator cuff tear Rotator cuff (capsule) sprain [facility] Diagnosis S/P shoulder surgery- Primary Other postprocedural status Preoperative examination Preoperative examination, unspecified [facility] Diagnosis S/P rotator cuff repair- Primary Other postprocedural status [facility] Diagnosis S/P rotator cuff repair- Primary Other postprocedural status [facility] Diagnosis S/P rotator cuff repair- Primary Other postprocedural status [facility] Diagnosis Dilated cardiomyopathy- Primary Other primary cardiomyopathies [facility] Diagnosis S/P rotator cuff repair- Primary Other postprocedural status [facility] Diagnosis Dilated cardiomyopathy- Primary Other primary cardiomyopathies [facility] Diagnosis 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- Primary Other chronic nonalcoholic liver disease [facility] Diagnosis WILSON (nonalcoholic steatohepatitis)- Primary Other chronic nonalcoholic liver disease [facility] Diagnosis Dilated cardiomyopathy- Primary Other primary cardiomyopathies [facility]* Auth/Cert Specialty Diagnoses / Procedures Referred By Nhan mix Referred To Contact Diagnoses Rotator cuff tear Rotator cuff tear [M75.100] Procedures AK SHLDR ARTHROSCOP,SURG,W/ROTAT CUFF REPR AK SHOULDER SCOPE BONE SHAVING AK REPAIR BICEPS LONG TENDON ARTHROSCOPY SHOULDER W/ ROTATOR CUFF REPAIR ARTHROSCOPY SHOULDER W/ SUBACROMIAL DECOMPRESSION/ACROMIOPLASTY ADD-ON PX TENODESIS BICEPS LONG TENDON Referral ID Status Reason Start Date Expiration Date Visits Re quested Visits Authorized [id number] 1 1 [facility] Reason for Referral Specialty Diagnoses / Procedures Referred By Nhan mix Referred To Contact Diagnoses Left shoulder pain, unspecified chronicity Procedures XR SHOULDER LEFT MIN 2 VIEWS Butch Manzanares MD [address] [place] [address] Referral ID Status Reason Start Date Expiration Date V isits Requested Visits Authorized [id number] Pending Review 09/11/2021 10/06/2022 1 1 Specialty Diagnoses / Procedures Referred By Nhan mix Referred To Contact Diagnoses Preoperative examination Procedures ECG Lizandro Reyes, 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 [address] Referral ID Status Reason Start Date Expiration Date V isits Requested Visits Authorized [id number] New Request 10/03/2021 10/28/2022 1 1 Specialty Diagnoses / Procedures Referred By Contact Referred To Contact Sports Medicine and Rehabilitation Diagnoses S/P rotator cuff repair Burt Andrea PA-C [address] [place] [address] Referral ID Status Reason Start Date Expiration Date V isits Requested Visits Authorized [id number] New Request 10/27/2021 11/21/2022 1 1 Scheduling Instructions [facility] at [address] Room: [address] [address] [phone] FAX [facility] [place] [address] [place] [address] FAX [facility] [address] [place], [place] [id number] FAX [facility] [address] [facility] [address] [place], [place] [address] FAX [facility]patient [facility] [place] [address] [place] [address], [address] [place] [address] FAX [facility] [place] [address] [facility], [address] [place], [place] [address] FAX [facility] [address] [facility] - [address] [place] [address] FAX [facility] [place] [address] [place] [address] FAX [facility] [employer] [facility] [address] [place], [place] [id number] FAX [facility] [address] [place], [place] [id number] FAX Specialty Diagnoses / Procedures Referred By Contac t Referred To Contact Nutrition and Dietetics Diagnoses Liver cirrhosis secondary to Reuben Pritchard MD [address] [place] [address] [place] [address] Referral ID Status Reason Start Date Expiration Date V isits Requested Visits Authorized [id number] New Request 10/23/2022 11/17/2023 1 1 Advance Directives No Advanced Directives Records FoundLatest Code Status on File Code Status Date Activated Date Inactivated Comments Full Code 06/29/2019 12:01 PM Latest Code Status on File Code Status Date Activated Date Inactivated Comments Full Code 06/29/2019 12:01 PM Latest Code Status on File Code Status Date Activated Date Inactivated Comments Full Code 06/29/2019 12:01 PM Latest Code Status on File Code Status Date Activated Date Inactivated Comments Full Code 06/29/2019 12:01 PM Summary Purpose Family History No Family History Records FoundNo Family History Records Found Additional Source Comments Reason for Visit (unrecogniz ed section and content) Specialty Diagnoses / Procedures Referred By Contac t Referred To Contact Diagnoses Left shoulder pain, unspecified chronicity Procedures XR SHOULDER LEFT MIN 2 VIEWS Butch Manzanares MD [address] [place] [address] Referral ID Status Reason Start Date Expiration Date V isits Requested Visits Authorized [id number] Pending Review 09/11/2021 10/06/2022 1 1 Reason Comments Patient Question Reason Comments Established Patient Specialty Diagnoses / Procedures Referred By Contac t Referred To Contact Hematology/Oncology / HEMATOLOGY/ONCOLOGY Diagnoses Pre-operative clearance OV, surgery clearance see phone note 09/12* Procedures OFFICE/OUTPATIENT ESTABLISHED HIGH MDM 40-54 MIN EST COMPLEX Al Winter DO [address] [place] [address] Al Winter, DO [address] [place] [address] Referral ID Status Reason Start Date Expiration Date Visits Re quested Visits Authorized [id number] Closed 09/19/2021 09/28/2022 1 1 Reason Comments Preoperative Assessment Reason Comments Post Op Visit 46 y/o Male. 1w 5d s /p Left shoulder arthroscopic rotator cuff repair (subscapularis), arthroscopic debridement, arthroscopic subacromial decompression with acromioplasty & arthroscopic biceps tenodesis (DOS 10/15/21) w/ Dr Manzanares -- Patient is doing well. Continues to take pain medication as needed. Has some tenderness on anterior shoulder. Says it feels like it wants to pop out . Reason Comments Post Op Visit 5w 2d s/p L shoulder scope with RCR (subscap), debridement, SAD with acromioplasty. biceps tenodesis (DOS 10/15/21)-- Pt is doing well. Going to PT. Reason Comments Post Op Visit 10w 2d s/p L shoulde r scope with RCR (subscap), debridement, SAD with acromioplasty. biceps tenodesis (DOS 10/15/21)-- Pt is doing ok, improving. Seeing PT twice a week. Reason Comments Follow-up 3.5m s/p left should er scope with RCR (subscap). Debridement. SAD with acrimioplasty. Biceps tenodesis (DOS 10/15/21). States that he is still dealing with pains from his shoulder to biceps. In PT 3x/wk. No new trauma. Condition Update 3.5m s/p left should er scope with RCR (subscap). Debridement. SAD with acrimioplasty. Biceps tenodesis (DOS 10/15/21). States that he is still dealing with pains from his shoulder to biceps. In PT 3x/wk. No new trauma. Reason Comments Follow-up Reason Comments Medication Refill Reason Comments Appointment Reason Comments Follow-up 7m s/p left shoulder scope with RCR (subscap). Debridement. SAD with acrimioplasty. Biceps tenodesis (DOS 10/15/21). States that his shoulder is doing well. Still in PT 2x/wk. No new trauma. Condition Update 7m s/p left shoulder scope with RCR (subscap). Debridement. SAD with acrimioplasty. Biceps tenodesis (DOS 10/15/21). States that his shoulder is doing well. Still in PT 2x/wk. No new trauma. Reason Onset Date Comments Insurance 06/30/2022 Reason Comments New Patient Hepatic Fibrosis . I nsulin resistant , weight gain Specialty Diagnoses / Procedures Referred By Nhan mix Referred To Contact Gastroenterology Diagnoses Hepatic fibrosis CindyJeniffer DO [address] [place] [address] [place] [address] [facility] [address] [place] [address] Referral ID Status Reason Start Date Expiration Date V isits Requested Visits Authorized [id number] Pending Review 09/08/2022 10/03/2023 1 1 Reason Comments Follow-up Patient states here for follow up. 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 Specialty Start Date End Date Jeniffer Houston DO [address] [place] [address] [place] [address] PCP - General Family Medicine 04/04/18 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 Specialty Start Date End Date Fredy Enamorado MD PCP - General 03/02/08 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 Specialty Start Date End Date Fredy Enamorado MD PCP - General 03/02/08 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 Specialty Start Date End Date Jeniffer Houston DO [address] [place] [address] [place] [address] PCP - General Family Medicine 04/04/18 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 Specialty Start Date End Date Jeniffer Houston DO [address] [place] [address] [place] [phone] PCP - General Family Medicine 04/04/18 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 Specialty Start Date End Date Jeniffer Houston DO [address] [place] [address] [place] [phone] PCP - General Family Medicine 04/04/18 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 Specialty Start Date End Date Jeniffer Houston DO [address] [place] [address] [place] [phone] PCP - General Family Medicine 04/04/18 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 Specialty Start Date End Date Jeniffer Houston DO [address] [place] [address] [place] [phone] PCP - General Family Medicine 04/04/18 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 Specialty Start Date End Date Jeniffer Houston DO [address] [place] [address] [place] [phone] PCP - General Family Medicine 04/04/18 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 Specialty Start Date End Date Fredy Enamorado MD PCP - General 03/02/08 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 Specialty Start Date End Date Jeniffer Houston, [address] [place] [address] [place] [phone] PCP - General Family Medicine 04/04/18 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 Specialty Start Date End Date Jeniffer Houston DO [address] [place] [address] [place] [phone] PCP - General Family Medicine 04/04/18 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 Specialty Start Date End Date Jeniffer Houston DO [address] [place] [address] [place] [phone] PCP - General Family Medicine 04/04/18 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 Specialty Start Date End Date Jeniffer Houston DO [address] [place] [address] [place] [phone] PCP - General Family Medicine 04/04/18 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 Specialty Start Date End Date Jeniffer Houston DO [address] [place] [address] [place] [address] PCP - General Family Medicine 04/04/18 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 Specialty Start Date End Date Jeniffer Houston DO [address] [place] [address] PCP - General Family Medicine 04/04/18 Source Comments (unrecognize d section and content) In the event this informatio n is protected by the Federal Confidentiality of Alcohol and Drug Abuse Patient Records regulations: The Federal rules restrict any use of the information to criminally investigate or prosecute any alcohol or drug abuse patient.[facility] the event this information is protected by the Federal Confidentiality of Alcohol and Drug Abuse Patient Records regulations: The Federal rules restrict any use of the information to criminally investigate or prosecute any alcohol or drug abuse patient.[facility] the event this information is protected by the Federal Confidentiality of Alcohol and Drug Abuse Patient Records regulations: The Federal rules restrict any use of the information to criminally investigate or prosecute any alcohol or drug abuse patient.[facility] (unrecognized sect ion and content) No Status Records FoundNo Status Records Found INFORMATION SOURCE (unrecogn ized section and content) DATE CREATED AUTHOR AUTHOR'S ORGANIZ ATION 04/27/2023 [facility] Scheduled Active and Recently Administ ered Medications (unrecognized section and content) Continuous Medication Order 10/13/2021 10/14/2021 10/15/2021 lactated ringers IV solution Intravenous, at 100 mL/hr, CONTINUOUS, Starting on Wed10/15/21 at 0530, Until Wed10/15/21 at 1437, Pre-op/Pre-Proc 0540 ($$New Bag$$ - Provider: Monica Buckner RN) PRN Medication Order 10/13/2021 10/14/2021 10/15/2021 EPINEPHrine PF (ADRENALIN) 1 MG/ML injection (CANCELED) NEEDED, Starting on Wed10/15/21 at 0934, Until Wed10/15/21 at 0955, Intra-op/Intra-Proc 0934 (Given - Provid er: Butch Manzanares MD - Comment: lactated ringer bag 1mg epi mixed in.) hydrALAZINE (APRESOLINE) injection 10 mg 10 mg, Intravenous, EVERY 30 MINUTES NEEDED, Starting on Wed10/15/21 at 0950, Until Wed10/15/21 at 1437, SBP > 180 SECOND line HTN, use if HR < 60., Administer over 2 minutes. Use if HR < 60. May give a total of 20 mg while in PACU. Notify MD if BP still uncontrolled after 2 mg and no other antihypertensive agents are ordered., Recovery HYDROmorphone (DILAUDID) injection 0.2 mg(Linked Group 4) 0.2 mg, Intravenous, EVERY 5 MINUTES NEEDED, Starting on Wed10/15/21 at 0950, Until Wed10/15/21 at 1437, Moderate Pain, Severe Pain, Use as initial dose. Higher dose may be administered if lower dose did not result in adverse effects (RR<10, decrease in level of consciousness) and was previously documented as ineffective. May give a total of 4mg in PACU., Recovery HYDROmorphone (DILAUDID) injection 0.5 mg(Linked Group 4) 0.5 mg, Intravenous, EVERY 5 MINUTES NEEDED, Starting on Wed10/15/21 at 0950, Until Wed10/15/21 at 1437, Moderate Pain, Severe Pain, Higher dose may be administered if lower dose did not result in adverse effects (RR<10, decrease in level of consciousness) and was previously documented as ineffective. Decrease back to lower dose if patient has adverse effects, or no PRN used in previous 30 minutes. May give a total of 4mg in PACU ., Recovery labetalol (NORMODYNE) injection 5 mg 5 mg, Intravenous, EVERY 15 MINUTES NEEDED, Starting on Wed10/15/21 at 0950, Until Wed10/15/21 at 1437, SBP > 180 FIRST line HTN. Hold if HR < 60 and give SECOND line agent., May give a total of 20 mg while in PACU. If blood pressure uncontrolled after 20mg of labetalol administered, use second line agent or notify MD. For vials: labetalol should be treated as a SINGLE USE VIAL. Discard remaining contents after one use., Recovery Lactated Ringers SOLN (CANCELED) NEEDED, Starting on Wed10/15/21 at 0933, Until Wed10/15/21 at 0955 0933 (Given - Provid er: Butch Manzanares MD - Comment: mixed with epi 1mg) Lactated Ringers SOLN (CANCELED) NEEDED, Starting on Wed10/15/21 at 0935, Until Wed10/15/21 at 0955 0935 (Given - Provid er: Butch Manzanares MD - Comment: mixed with 1mg epi) Lactated Ringers SOLN (CANCELED) NEEDED, Starting on Wed10/15/21 at 0936, Until Wed10/15/21 at 0955 0936 (Given - Provid er: Butch Manzanares MD - Comment: mixed with epi 1mg) ondansetron 4mg/2ml (ZOFRAN) injection 4 mg 4 mg, Intravenous, ONCE NEEDED, 1 dose, Starting on Wed10/15/21 at 0950, Until Wed10/15/21 at 1437, Nausea / Vomiting, FIRST line antiemetic, Do not administer within 6 hours of intra-operative dose., Recovery oxyCODONE (ROXICODONE) tablet 5 mg 5 mg, Oral, EVERY 4 HOURS NEEDED, Starting on Wed10/15/21 at 0950, Until Wed10/15/21 at 1437, Moderate Pain, Recovery Linked Groups Order Group 1: insulin lispro (HumaLOG) injection 4 UnitsJump to med 4 Units, Subcutaneous, 3 TIMES DAILY BEFORE MEALS, First dose on Wed10/15/21 at 0745, Until Discontinued
Give before meal or with first bite of food. Kwikpen: Prime pen before each injection; refer to Pen Priming and Care Handout for further details. Warning! Confirm patient. Insulin pen is for labeled individual patient use ONLY.
Pre-op/Pre-Proc And BLOOD GLUCOSE (POC DEVICE) (CANCELED) Routine, 4 TIMES DAILY BEFORE MEALS & AT BEDTIME, First occurrence on Wed10/15/21 at 0745
If any blood glucose is greater than 300mg/dl, then repeat BLOOD GLUCOSE (POC DEVICE) in 2 hours. If the initial blood glucose was greater than 300mg/dl and if second blood glucose is greater than 200mg/dl, then notify warehouse and receiving supervisor. , Pre-op/Pre-Proc And BLOOD GLUCOSE (POC DEVICE) (CANCELED) Routine, DIRECTED, Starting on Wed10/15/21 at 0653, Until Specified
Symptoms of hypoglycemia: sweating, shaking, fatigue, rapid pulse, slow thinking & dizziness. Notify physician w/results. Symptoms of hyperglycemia: excessive thirst, blurred vision, excessive urination & tiredness. Notify physician w/results. If patient npo, obtain BLOOD GLUCOSE (POC DEVICE) prior to administration of all insulin products. , Pre-op/Pre-Proc Group 2: insulin lispro (HumaLOG) injection 4 UnitsJump to med 4 Units, Subcutaneous, 3 TIMES DAILY BEFORE MEALS, First dose on Wed10/15/21 at 1100, Until Discontinued
Give before meal or with first bite of food. Kwikpen: Prime pen before each injection; refer to Pen Priming and Care Handout for further details. Warning! Confirm patient. Insulin pen is for labeled individual patient use ONLY.
Recovery And BLOOD GLUCOSE (POC DEVICE) (CANCELED) Routine, 4 TIMES DAILY BEFORE MEALS & AT BEDTIME, First occurrence on Wed10/15/21 at 1030
If any blood glucose is greater than 300mg/dl, then repeat BLOOD GLUCOSE (POC DEVICE) in 2 hours. If the initial blood glucose was greater than 300mg/dl and if second blood glucose is greater than 200mg/dl, then notify warehouse and receiving supervisor. , Recovery And BLOOD GLUCOSE (POC DEVICE) (CANCELED) Routine, DIRECTED, Starting on Wed10/15/21 at 1009, Until Specified
Symptoms of hypoglycemia: sweating, shaking, fatigue, rapid pulse, slow thinking & dizziness. Notify physician w/results. Symptoms of hyperglycemia: excessive thirst, blurred vision, excessive urination & tiredness. Notify physician w/results. If patient npo, obtain BLOOD GLUCOSE (POC DEVICE) prior to administration of all insulin products. , Recovery Group 3: insulin lispro (HumaLOG) injection 6 UnitsJump to med 6 Units, Subcutaneous, 3 TIMES DAILY BEFORE MEALS, First dose on Wed10/15/21 at 1130, Until Discontinued
Give before meal or with first bite of food. Kwikpen: Prime pen before each injection; refer to Pen Priming and Care Handout for further details. Warning! Confirm patient. Insulin pen is for labeled individual patient use ONLY.
Recovery And BLOOD GLUCOSE (POC DEVICE) (CANCELED) Routine, 4 TIMES DAILY BEFORE MEALS & AT BEDTIME, First occurrence on Wed10/15/21 at 1530
If any blood glucose is greater than 300mg/dl, then repeat BLOOD GLUCOSE (POC DEVICE) in 2 hours. If the initial blood glucose was greater than 300mg/dl and if second blood glucose is greater than 200mg/dl, then notify warehouse and receiving supervisor. , Recovery And BLOOD GLUCOSE (POC DEVICE) (CANCELED) Routine, DIRECTED, Starting on Wed10/15/21 at 1127, Until Specified
Symptoms of hypoglycemia: sweating, shaking, fatigue, rapid pulse, slow thinking & dizziness. Notify physician w/results. Symptoms of hyperglycemia: excessive thirst, blurred vision, excessive urination & tiredness. Notify physician w/results. If patient npo, obtain BLOOD GLUCOSE (POC DEVICE) prior to administration of all insulin products. , Recovery Group 4: HYDROmorphone (DILAUDID) injection 0.2 mgJump to med 0.2 mg, Intravenous, EVERY 5 MINUTES NEEDED, Starting on Wed10/15/21 at 0950, Until Wed10/15/21 at 1437, Moderate Pain, Severe Pain
Use as initial dose. Higher dose may be administered if lower dose did not result in adverse effects (RR<10, decrease in level of consciousness) and was previously documented as ineffective. May give a total of 4mg in PACU.
Recovery Or HYDROmorphone (DILAUDID) injection 0.5 mgJump to med 0.5 mg, Intravenous, EVERY 5 MINUTES NEEDED, Starting on Wed10/15/21 at 0950, Until Wed10/15/21 at 1437, Moderate Pain, Severe Pain
Higher dose may be administered if lower dose did not result in adverse effects (RR<10, decrease in level of consciousness) and was previously documented as ineffective. Decrease back to lower dose if patient has adverse effects, or no PRN used in previous 30 minutes. May give a total of 4mg in PACU .
Recovery FOR RECORDS PERTAINING TO PATIENTS WHO ARE OR HAVE BEEN ENROLLED IN A CHEMICAL DEPENDENCY/SUBSTANCEABUSE PROGRAM, SOME INFORMATION MAY BE OMITTED. This clinical summary was aggregated from multiple sources. Caution should be exercised in using it in the provision of clinical care. This summary normalizes information from multiple sources, and as a consequence, information in this document may materially change the coding, format and clinical context of patient data. In addition, data may be omitted in some cases. CLINICAL DECISIONS SHOULD BE BASED ON THE PRIMARY CLINICAL RECORDS. [facility] [facility]. provides no warranty or guarantee of the accuracy or completeness of information in this document.
--- NOTE | 2023-06-17 16:27 | MRI_ITS ---
STUDY: MRI RIGHT FOREFOOT WITHOUT CONTRAST REASON FOR EXAM: Male, 47 years old. RT FOOT PAIN, DIABETIC WOUND TIP OF GREAT TOE RT TECHNIQUE: Standardized fat and water weighted pulse sequences were obtained in all 3 orthogonal planes. COMPARISON: X-ray April 30, 2023 FINDINGS: Normal metatarsophalangeal joint of the hallux. Normal tibial and fibular sesamoids, with normal sesamoids-first metatarsal articulations. Normal interphalangeal joint of the hallux. Normal proximal phalanx of the great toe. There is marrow edema of the first distal phalanx, series 10 image 12/18. There is focal skin defect of the distal tip of the first toe. Normal medial and lateral heads of the flexor hallucis brevis tendons. Normal flexor and extensor hallucis longus tendons. Normal second through fifth metatarsophalangeal (MTP) joints. Normal interphalangeal joints of the second through fifth toes. Normal proximal, middle and distal phalanges of the second through fifth toes. Normal first through fourth intermetatarsal spaces. Normal flexor and extensor tendons of the second through fifth toes. Normal visualized metatarsi. Normal intrinsic muscles of the forefoot. MRI/Lower Ext/No Jt/w/o IMPRESSION: Osteomyelitis of the first distal phalanx. Electronically Signed: Samir Quintana MD at 22:38 EST ,
== END | disposition home or self-care (01) ==
LOC: MRI 16:09
PROVIDERS: PCP Family Medicine; Referring Provider Student in an Organized Health Care Education/Training Program; Visit Provider Student in an Organized Health Care Education/Training Program
DX: L97.512 Non-pressure chronic ulcer of other part of right foot with fat layer exposed (principal); M79.674 Pain in right toe(s)
CPT/HCPCS: 73718

== ENCOUNTER → 2023-07-20 | Outpatient (CLI) | payer BC, SELFPAY ==
--- OUTSIDE RECORDS SUMMARY | 2023-07-20 07:24 | XMS RPT_ITS | CCD ---
Author Name Unknown Address [address] [place] [address] Organization [facility] Care Team Providers Care Nuclear Plant Operator Name Role Phone Jeniffer Houston DO Primary Care Provider Fei SARAVIA, Ferdy May Primary Care Provider Fei SARAVIA, Fredy May Primary Care Provider Cindy GRUBER, Jeniffer A Primary Care Provider Cindy GRUBER, Jeniffer A Primary Care Provider SELF, SELF Referring Unavailable OLIVIA BORDEN Attending Unavailable CINDY, JENIFFER A Primary Care Unavailable CINDY, JENIFFER A Primary Care Unavailable ANSHUL HERNANDEZ Attending Unavailable CINDY, JENIFFER A Referring Unavailable MENDREUBEN LOWE Attending Unavailable CINDY, JENIFFER A Referring Unavailable [...] (20 sources) Codeine Drug Allergy 6 Hives [facility] (19 sources) Perflutren Lipid Microsphere Propensity to adverse reactions to drug 9 [facility] (6 sources) Chocolate Propensity to adverse reactions 6 GI Upset [facility] Work Phone: (3 sources) Perflutren Drug Allergy 7 Other: See Comments [facility] (3 sources) metFORMIN Drug Allergy 3 Diarrhea [facility] Medications Current Medications Medication Drug Class(es) [...] height 193 cm Olivia FREED Work Phone: [facility] 04-23-2023 14:11040 Body mass index (BMI) [Ratio] 35.86 kg/m2 Olivia FREED Work Phone: [facility] 04-23-2023 14:11040 Body temperature 97.3 [degF] Olivia FREED Work Phone: [facility] 04-23-2023 14:11040 Body weight 133.63 kg Olivia FREED Work Phone: [facility] 04-23-2023 14:11040 Diastolic blood pressure 72 mm[Hg] Olivia FREED Work Phone: [facility] 04-23-2023 14:11040 Heart rate 55 /min Olivia FREED Work Phone: [facility] 04-23-2023 14:11-0400 Respiratory rate 16 /min Olivia Borden TOBACCO CURER-ALTERATION WORKER Work Phone: [facility] 04-23-2023 14:110400 SaO2% (BldA) [Mass fraction] 97 % Olivia Borden TOBACCO CURER-ALTERATION WORKER Work Phone: [facility] 04-23-2023 14:11-0400 Systolic blood pressure 100 mm[Hg] Olivia Borden TOBACCO CURER-ALTERATION WORKER Work Phone: [facility] 04-23-2023 10:120400 Diastolic blood pressure 62 mm[Hg] Anshul Hernandez MD Work Phone: [facility] 04-23-2023 10:120400 Heart rate 86 /min Anshul Hernandez MD Work Phone: [facility] 04-23-2023 10:12-0400 Systolic blood pressure 107 mm[Hg] Anshul Hernandez MD Work Phone: [facility] 04-23-2023 10:110400 Body height 193 cm Anshul Hernandez MD Work Phone: [facility] 04-23-2023 10:11-0400 Body mass index (BMI) [Ratio] 35.42 kg/m2 Anshul Hernandez MD Work Phone: [facility] 04-23-2023 10:11-0400 Body weight 132 kg Anshul Hernandez MD Work Phone: [facility] 04-23-2023 10:11-0400 Respiratory rate 16 /min Anshul Hernandez MD Work Phone: [facility] 04-23-2023 10:11-0400 SaO2% (BldA) [Mass fraction] 98 % Anshul Hernandez MD Work Phone: [facility] 10-23-2022 08:38-0400 Body height 193 cm Reuben Wilson MD Work Phone: [facility] 10-23-2022 08:38-0400 Body mass index (BMI) [Ratio] 37.61 kg/m2 Reuben Wilson MD Work Phone: [facility] 10-23-2022 08:38-0400 Body weight 140.16 kg Reuben Wilson MD Work Phone: [facility] 10-23-2022 08:38-0400 Diastolic blood pressure 68 mm[Hg] Reuben Wilson MD Work Phone: [facility] 10-23-2022 08:38-0400 Heart rate 74 /min Reuben Wilson MD Work Phone: [facility] 10-23-2022 08:38-0400 Respiratory rate 18 /min Reuben Wilson MD Work Phone: [facility] 10-23-2022 08:38-0400 SaO2% (BldA) [Mass fraction] 98 % Reuben Wilson MD Work Phone: [facility] 10-23-2022 08:38-0400 Systolic blood pressure 94 mm[Hg] Reuben Wilson MD Work Phone: [facility] 09-11-2022 09:25-0400 Diastolic blood pressure 51 mm[Hg] Anshul Hernandez MD Work Phone: [facility] 09-11-2022 09:25-0400 Heart rate 86 /min Anshul Hernandez MD Work Phone: [facility] 09-11-2022 09:25-0400 Systolic blood pressure 98 mm[Hg] Anshul Hernandez MD Work Phone: [facility] 09-11-2022 09:24-0400 Body height 193 cm Anshul Hernandez MD Work Phone: 1(786)707-490355 [place] [address] 09-11-2022 09:24-0400 Body mass index (BMI) [Ratio] 35.67 kg/m2 Anshul Hernandez MD Work Phone: 6(436)622-640655 [place] [address] 09-11-2022 09:24-0400 Body weight 132.9 kg Anshul Hernandez MD Work Phone: 4(522)135-082055 [place] [address] 09-11-2022 09:24-0400 Respiratory rate 18 /min Anshul Hernandez MD Work Phone: 6(968)866-019455 [place] [address] 09-11-2022 09:24-0400 SaO2% (BldA) [Mass fraction] 96 % Anshul Hernandez MD Work Phone: 6(562)375-768655 [place] [address] 02-20-2022 11:27-0400 Diastolic blood pressure 61 mm[Hg] Anshul Hernandez MD Work Phone: 5(642)784-761455 [place] [address] 02-20-2022 11:27-0400 Systolic blood pressure 97 mm[Hg] Anshul Hernandez MD Work Phone: 4(726)322-042455 [place] [address] 02-20-2022 11:26-0400 Body height 193 cm Anshul Hernandez MD Work Phone: 9(027)074-850255 [place] [address] 02-20-2022 11:26-0400 Body mass index (BMI) [Ratio] 34.61 kg/m2 Anshul Hernandez MD Work Phone: 4(960)139-987555 [place] [address] 02-20-2022 11:26-0400 Body weight 128.96 kg Anshul Hernandez MD Work Phone: 1(801)674-337055 [place] [address] 02-20-2022 11:26-0400 Heart rate 87 /min Anshul Hernandez MD Work Phone: 2(085)457-502955 [place] [address] 02-20-2022 11:26-0400 Respiratory rate 18 /min Anshul Hernandez MD Work Phone: [facility] 02-20-2022 11:26-0400 SaO2% (BldA) [Mass fraction] 98 % Anshul Hernandez MD Work Phone: [facility] 10-15-2021 11:15-0400 Heart rate 84 /min Butch Manzanares MD Work Phone: [facility] 10-15-2021 11:15-0400 Respiratory rate 13 /min Butch Manzanares MD Work Phone: [facility] 10-15-2021 11:15-0400 SaO2% (BldA) [Mass fraction] 97 % Butch Manzanares MD Work Phone: [facility] 10-15-2021 11:00-0400 Body temperature 98.4 [degF] Butch Manzanares MD Work Phone: [facility] 10-15-2021 11:00-0400 Diastolic blood pressure 77 mm[Hg] Butch Manzanares MD Work Phone: [facility] 10-15-2021 11:00-0400 Systolic blood pressure 128 mm[Hg] Butch Manzanares MD Work Phone: [facility] 10-15-2021 06:00-0400 Body height 193 cm Butch Manzanares MD Work Phone: [facility] 10-15-2021 06:00-0400 Body mass index (BMI) [Ratio] 36.96 kg/m2 Butch Manzanares MD Work Phone: [facility] 10-15-2021 06:00-0400 Body weight 137.71 kg Butch Manzanares MD Work Phone: [facility] 10-03-2021 12:47-0400 Body height 193 cm Lizandro FREED Work Phone: [facility] 10-03-2021 12:47-0400 Body mass index (BMI) [Ratio] 36.03 kg/m2 Lizandro Reyes TOBACCO CURER-ALTERATION WORKER Work Phone: [facility] 10-03-2021 12:47-0400 Body temperature 97.9 [degF] Lizandro Reyes TOBACCO CURER-ALTERATION WORKER Work Phone: [facility] 10-03-2021 12:47-0400 Body weight 134.26 kg Lizandro Reyes TOBACCO CURER-ALTERATION WORKER Work Phone: [facility] 10-03-2021 12:47-0400 Diastolic blood pressure 59 mm[Hg] Lizandro Reyes TOBACCO CURER-ALTERATION WORKER Work Phone: [facility] 10-03-2021 12:47-0400 Heart rate 81 /min Lizandro Reyes TOBACCO CURER-ALTERATION WORKER Work Phone: [facility] 10-03-2021 12:47-0400 Respiratory rate 18 /min Lizandro Reyes TOBACCO CURER-ALTERATION WORKER Work Phone: [facility] 10-03-2021 12:47-0400 SaO2% (BldA) [Mass fraction] 94 % Lizandro Reyes TOBACCO CURER-ALTERATION WORKER Work Phone: [facility] 10-03-2021 12:47-0400 Systolic blood pressure 107 mm[Hg] Lizandro Reyes TOBACCO CURER-ALTERATION WORKER Work Phone: [facility] 09-19-2021 11:18-0400 Body temperature 97.11 [degF] Al Winter DO Work Phone: [facility] 09-19-2021 11:18-0400 Body weight 133.81 kg Al Winter DO Work Phone: [facility] 09-19-2021 11:18-0400 Diastolic blood pressure 71 mm[Hg] Al Winter DO Work Phone: [facility] 09-19-2021 11:18-0400 Heart rate 80 /min Al Winter DO Work Phone: [facility] 09-19-2021 11:18-0400 Systolic blood pressure 116 mm[Hg] Al Winter DO Work Phone: [facility] Encounters Encounter Date Encounter Type Care Provider Facility Start: 04-23-2023 ambulatory SELF SELF Facility:[facility] Start: 04-23-2023 [facility] Start: 04-23-2023 End: 04-23-2023 Office outpatient visit 25 minutes Olivia Borden APRN-ALTERATION WORKER Work Phone: Gastroenterology and Hepatology [facility] Procedures Date Procedure Procedure Detail Performing Clinician Start: 10-15-2021 Glucose measurement, blood Butch Manzanares MD Work Phone: Start: 10-15-2021 Glucose measurement, blood Butch Manzanares MD Work Phone: Start: 10-15-2021 Glucose measurement, blood Butch Manzanares MD Work Phone: Start: 10-15-2021 Glucose measurement, blood Butch Manzanares MD Work Phone: Start: 10-15-2021 Glucose measurement, blood Butch Manzanares MD Work Phone: Start: 10-15-2021 Prothrombin time Lizandro Reyes TOBACCO CURER-ALTERATION WORKER Work Phone: Start: 10-03-2021 Ecg routine ecg w/least 12 lds trcg only w/o i&r Lizandro Reyes TOBACCO CURER-ALTERATION WORKER Work Phone: Start: 09-12-2021 Radex shoulder complete [...] Start: 04-21-2024 End: 04-21-2024 Patient encounter procedure [facility] Start: 10-29-2023 End: 10-29-2023 Telemedicine consultation with patient 10/29/2023 4:30 PM EDT Telemedicine Gastroenterology and Hepatology [facility] [address] [address] Reuben Wilson MD [address] [address] [facility] Start: 10-24-2023 Potassium [Moles/volume] in Serum or Plasma POTASSIUM [facility] Start: 10-20-2023 End: 10-20-2023 Telemedicine consultation with patient 10/20/2023 8:00 AM EDT Telemedicine [facility] [address] [place] [address] Karrie Crespo, TOBACCO CURER-ALTERATION WORKER [address] [place] [address] [facility] Start: 04-23-2023 End: 04-23-2023 Patient encounter procedure 04/23/2023 Office Visit Gastroenterology Reuben Wilson MD [address] [address] Gastroenterology and Hepatology [facility] Start: 04-23-2023 End: 04-23-2023 Patient encounter procedure 04/23/2023 Office Visit Cardiovascular Medicine Anshul Hernandez MD [address] [place] [address] [facility] Start: 02-19-2023 COVID-19 VACCINE () COVID-19 VACCINE () [facility] Start: 10-23-2022 End: 10-24-2023 ANTI MITOCHONDRIAL ANTIBODY [facility] Immunizations Immunization Date Immunization Notes Care Provider Fa cili 03-31-2016 influenza virus vaccine, unspecified formulation Butch Manzanares MD Work Phone: [facility] 04-07-2011 influenza virus vaccine, unspecified formulation Al Winter DO Work Phone: [facility] 04-07-2011 tetanus toxoid, redu raza diphtheria toxoid, and acellular pertussis vaccine, adsorbed Al Winter DO Work Phone: [facility] 05-18-2006 tetanus and diphther ia toxoids, adsorbed, preservative free, for adult use (2 Lf of tetanus toxoid and 2 Lf of diphtheria toxoid) Al Winter DO Work Phone: [facility] Work Phone: Payers Date Payer Category Payer Private Health Insurance KAYLEIGH KNUTSON [id number] 2022-Present [address] [place] [address] [id number] 2022 Private Health Insurance [id number] 2021 Unknown [id number] 2019 Unknown [id number] 2018 Unknown [id number] 1975 Unknown [id number] 1975 Unknown [id number] .594 1975 Unknown [id number] .594 1975 Unknown [id number] .594 1975 Unknown [id number] .594 1975 Unknown [id number] .594 1975 Unknown [id number] .594 1975 Unknown [id number] .594 1975 Unknown [id number] .594 1975 Unknown [id number] .594 Social History Date Type Detail Facility Start: 06-30-2019 End: 09-11-2022 Tobacco smoking status NHIS Ex-smoker [facility] End: 11-19-2001 History of tobacco use Current smoker [facility] Start: 06-30-2019 End: 04-23-2023 Cigarettes smoked current (pack per day) - Reported 1 [facility] Start: 06-30-2019 End: 09-11-2022 Tobacco use and exposure Former smokeless tobacco user [facility] End: 05-27-2008 History of tobacco use User of smokeless tobacco [facility] Start: 09-12-2021 End: 05-22-2022 Alcohol intake Current drinker of alcohol (finding) [facility] Start: 03-29-2019 History SDOH Alcohol Comment socially [facility] Start: 1975 Sex Assigned At Not on file [facility] Start: 09-02-2021 End: 09-19-2021 Exposure to SARS-CoV-2 (event) Not sure [facility] End: 11-19-2001 History of tobacco use Cigarette Smoker [facility] Work Phone: End: 05-27-2008 History of tobacco use Chews Tobacco [facility] Work Phone: Start: 09-11-2022 End: 04-23-2023 Alcohol intake Ex-drinker (finding) [facility] Start: 04-23-2023 Tobacco use panel [facility] Start: 03-28-2018 Gender identity Identifies as male gender (finding) [facility] Medical Equipment Procedure Code Equipment Code Equipment Origin al Text Equipment Identifier Dates Suture Swivelock C 19.1mm Closed Eyelet Twist In Knotless 2 - [id number] Start: 10-15-2021 Clinical Notes 09-12-2021 to 04-23-2023 Olivia Borden APRN-ALTERATION WORKER - 04/23/2023 3:00 PM Jana Hernandez MD [...] seeing your patient Katrina Melvin at the [facility]astroenterology[facility] Hep[facility]ology [facility] Nutrition [facility] on 04/23/2023. Thank you for referring the patient to the [facility] Gastroenterology, Hepatology and Nutrition Clinic. If you have any questions or concerns please feel free to contact my office. Chief Complaint Patient presents with Follow-up Patient states here for follow up. Patient states not having as many symptoms as last visit History of Present Illness: Katrina Melvin is a 47 y.o. male who presents to the [facility] Hep[facility]ology Clinic today for follow-up regarding his [...] cirrhosis. MACKENZIE with Dr. Wilson 10/23/2022 Since [facility], the patient reports he has been doing [...] Laterality: Left; Surgeon: Butch Manzanares MD; Location: [facility] PERIOP ARTHROSCOPY SHOULDER W/ SUBACROMIAL DECOMPRESSION/ACROMIOPLASTY ADD-ON Left 10/15/2021 Laterality: Left; Surgeon: Butch Manzanares MD; Location: [facility] PERIOP TENODESIS BICEPS LONG TENDON Left 10/15/2021 Laterality: Left; Surgeon: Butch Manzanares MD; Location: [facility] PERIOP ANKLE SURGERY Left 1992 Family History [...] use: Not Currently Types: Marijuana Comment: used [employer] over 30 yeas ago Sexual activity: Yes [...] Division of Gastroenterology, Hepatology, & Nutrition [facility] Diagnoses and associated orders for this visit: ICD-10-CM 1. WILSON (nonalcoholic steatohepatitis) K75.81 documented in this encounter [facility] 04-23-2023 History of Present illness Narrative Advanced Heart Failure and Transplant Cardiology Clinic Note Katrina Melvin is a 47 y.o. male who presents to the Heart Failure / Transplant Clinic at the [facility] at the [facility] on 04/23/2023 for routine evaluation and [...] tid Vasodilator: no Antiarrhythmic: no ICD: NA HEALTH CARE CONSULTANT: NA LAB and CV Test results: cMRI [...] per pts report of recent evaluation in [place]. --referred to [facility] Hepatology PLAN RTC to see me in one yr Remote visit with TANK CLEANING SUPERVISOR in 6 mos. Anshul Hernandez M.D. Advanced Heart Failure Program Division of Cardiovascular Medicine [facility] [email or web address] ph [phone] fax [phone] Patient Education Patient education regarding the following [...] of care documented in this encounter [facility] 04-23-2023 Instructions Monica Borden RN - 04/23/2023 10:30 AM EDT The following instructions were given today: -no medication changes today -follow up Karrie MONGE in 6 months-telehealth -follow up with Dr. Hernandez in 1 year Your after visit summary (AVS) is viewable in [facility] My Chart. Call RN if you have cardiac questions/concerns M-F 8 to 4:30 ; office # [phone], option 6, then option 2. Guidelines for home management: 1. Continue to monitor weight first thing each morning. 2. Report to the CHF CLINIC ([phone]) any significant weight change. Remember that weight [...] to have labs/tests run outside of the [facility] and you do not hear from us 1-2 days after they are performed, you must call us to ensure we received the results. Office fax # [phone]. No news does not necessarily mean that your tests are normal, it could mean we did not get the results. For questions/updates: please provide your name with spelling, date of and question or update All calls are prioritized and responses researched, if possible, prior to calls being returned. Call Scheduling for any appointment/procedure verification or changes [phone], option 7 or [facility] Heart Schedulers at [phone], option 1. documented in this encounter [facility] 10-23-2022 History of Present illness Narrative [...] diet. 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 The patient also [...] Laterality: Left; Surgeon: Butch Manzanares MD; Location: [facility] PERIOP ARTHROSCOPY SHOULDER W/ SUBACROMIAL DECOMPRESSION/ACROMIOPLASTY ADD-ON Left 10/15/2021 Laterality: Left; Surgeon: Butch Manzanares MD; Location: [facility] PERIOP TENODESIS BICEPS LONG TENDON Left 10/15/2021 [...] showed hepatomegaly with fatty infiltration Lab results: [facility] Nursing Assessment 09/11/2022 09/11/2022 02/20/2022 02/20/2022 [...] follow pending above workup Reuben Wilson MD Manager [employer] Gastroenterology, Hepatology and Nutrition [facility] Pager: [phone] 10/22/2022 10:02 PM This Brick Veneer Maker verified the patients name and date of . documented in this encounter [facility] 10-23-2022 Instructions Reuben Wilson MD - [...] in 6 months. documented in this encounter [facility] 09-11-2022 History of Present illness Narrative Advanced Heart Failure and Transplant Cardiology Clinic Note Katrina Melvin is a 46 y.o. male who presents to the Heart Failure / Transplant Clinic at the [facility] the [facility] on 09/11/2022 for routine evaluation and [...] bid Vasodilator: no Antiarrhythmic: no ICD: NA HEALTH CARE CONSULTANT: NA LAB and CV Test results: cMRI [...] per pts report of recent evaluation in [place]. --referred to [facility] PLAN Remains on good HF therapy, currently NYHA class I No changes and no testing indicated at this time. RTC in 8 mos Anshul Hernandez M.D. Advanced Heart Failure Program Division of Cardiovascular Medicine [facility] [email or web address] ph [phone] fax [phone] Patient Education Patient education regarding the following topic(s) was provided on 09/11/2022: plan of care. -no medication changes today -follow up with Dr. Hernandez in 8 months Those in attendance for the education included: Patient and . Barriers in providing the education included: none. The following methods were used in providing the education: explanation. [facility] handouts given included: After visit summary. The response of those in attendance was: states/identifies education topic. The following Clinical Intervention(s) occurred during today s visit: Orthostatic or Coarctation vital signs completed and Extensive teaching provided to patient and or support team regarding plan of care documented in this encounter [facility] 09-11-2022 Instructions Monica Borden RN - 09/11/2022 9:30 AM EDT Recommendations from Dr Hernandez today: -no medication changes today -follow up with Dr. Hernandez in 8 months After visit summary (AVS) is viewable in [facility] My Chart. Send My Chart message for non-urgent inquiry or Call RN if you have cardiac questions/concerns M-F 8 to 4:30 ; office # [phone], option 6, then option 2. Guidelines for home management: 1. Continue to monitor weight first thing each morning. 2. Report to the CHF CLINIC ([phone]) any significant weight change. Remember that weight [...] to have labs/tests run outside of the [facility] and you do not hear from us 1-2 days after they are performed, you must call us to ensure we received the results. Office fax # [phone]. No news does not necessarily mean that your tests are normal, it could mean we did not get the results. For questions/updates: please provide your name with spelling, date of and question or update All calls are prioritized and responses researched, if possible, prior to calls being returned. Call Scheduling for any appointment/procedure verification or changes [phone], option 7 or [facility] Heart Schedulers at [phone], option 1. documented in this encounter [facility] 07-01-2022 Note Addended by: Grisel HERNANDEZ on: 07/01/2022 08:17 AM Modules accepted: Orders [facility] 07-01-2022 Note Addended by: Grisel HERNANDEZ on: 07/01/2022 08:17 AM Modules accepted: Orders [facility] 07-01-2022 Miscellaneous Notes Addended by: ANSHUL [...] Update to team to send back to [facility] with note on Rx that plan only allows 30 day supply. Medication Access Team coordinated the following: [facility] Clin[facility]: Cardiology Care Coordination Non-Specialty Prescriptions: 1, 15-20 min Brenda Hinds [phone] documented in this encounter [facility] 07-01-2022 Note Addended by: MARNIE ZAPATA on: 07/01/2022 08:00 AM Modules accepted: Orders [facility] 07-01-2022 Note Addended by: MARNIE ZAPATA on: 07/01/2022 08:00 AM Modules accepted: Orders [facility] 07-01-2022 Telephone encounter Note Pended the [address] Hernandez to review/sign [facility] 06-30-2022 Telephone encounter Note [facility] [...] Non-Specialty Prescriptions: 1, 15-20 min Brenda Hinds [id number] [facility] 05-22-2022 History of Present illness Narrative [...] his next appointment. documented in this encounter [facility] 03-27-2022 Miscellaneous Notes Patient cancelled his 6 mo follow up as he will be out of town and declined to reschedule at this time. documented in this encounter [facility] 03-09-2022 Note Addended by: Grisel HERNANDEZ on: 03/09/2022 12:22 PM Modules accepted: Orders [facility] 03-09-2022 Note Addended by: Grisel HERNANDEZ on: 03/09/2022 12:22 PM Modules accepted: Orders [facility] 03-09-2022 Miscellaneous Notes Addended by: ANSHUL HERNANDEZ on: 03/09/2022 12:22 PM Modules accepted: Orders Addended by: ALONA RAMIREZ on: 03/09/2022 12:21 PM Modules accepted: Orders Patient called requesting refill of lasix. Med verified from last clinic visit 02/20/22. Return to clinic 09/04/22. Medication will be refilled by e-fax after it has been approved by the attending physician. documented in this encounter [facility] 03-09-2022 Note Addended by: ALONA RAMIREZ on: 03/09/2022 12:21 PM Modules accepted: Orders [facility] 03-09-2022 Note Addended by: ALONA RAMIREZ on: 03/09/2022 12:21 PM Modules accepted: Orders [facility] 02-27-2022 Telephone encounter Note Patient called requesting refill of lasix. Med verified from last clinic visit 02/20/22. Return to clinic 09/04/22. Medication will be refilled by e-fax after it has been approved by the attending physician. [facility] 02-20-2022 History of Present illness Narrative Advanced Heart Failure and Transplant Cardiology Clinic Note Katrina Melvin is a 46 y.o. male who presents to the Heart Failure / Transplant Clinic at the [facility] at the [facility] on 02/20/2022 for routine evaluation and follow-up of DCM. He presents today for routine follow-up. He has been feeling more dyspneic, and fatigued since return from vacation to [facility]. While there, he was amazingly functional, actually able to jog a mile in the heat, and did not require his usual diuretic dosing. He immediately noted return of his HF sx upon returning to [place]. He is thinking that the very low humidity in [facility] was a major benefit - but he [...] bid Vasodilator: no Antiarrhythmic: no ICD: NA HEALTH CARE CONSULTANT: NA LAB and CV Test results: cMRI [...] improved functional capacity while he was in [facility]. Concluded that there were likely multiple [...] Heart Failure Program Division of Cardiovascular Medicine [facility] [email or web address] ph [phone] fax [phone] Patient Education Patient education regarding the following [...] were used in providing the education: explanation. [facility] handouts given included: After visit summary. The response of those in attendance was: applies knowledge. The following Clinical Intervention(s) occurred during today s visit: Orthostatic or Coarctation vital signs completed and Extensive teaching provided to patient and or support team regarding plan of care documented in this encounter [facility] [place] [facility] 02-20-2022 Instructions Alona Ramirez RN - 02/20/2022 11:30 AM EDT Recommendations [...] M-F 8 to 4:30 ; office # [phone], option 6, then option 2. Guidelines for home management: 1. Continue to monitor weight first thing each morning. 2. Report to the CHF CLINIC ([phone]) any significant weight change. Remember that weight [...] to have labs/tests run outside of the [facility] and you do not hear from us 1-2 days after they are performed, you must call us to ensure we received the results. Office fax # [phone]. No news does not necessarily mean that your tests are normal, it could mean we did not get the results. For questions/updates: please provide your name with spelling, date of and question or update All calls are prioritized and responses researched, if possible, prior to calls being returned. Call Scheduling for any appointment/procedure verification or changes [phone], option 7 or [facility] at [phone], option 1. documented in this encounter [facility] [place] [facility] 02-06-2022 History of Present illness Narrative Chief [...] his next appointment. documented in this encounter [facility] 12-26-2021 History of Present illness Narrative [...] his next appointment. documented in this encounter [facility] 11-21-2021 History of Present illness Narrative [...] his next appointment. documented in this encounter [facility] 10-27-2021 Instructions Burt Andrea PA-C - [...] Please visit our websites for reference: [email or web address] documented in this encounter [facility] 10-27-2021 History of Present illness Narrative [...] of next appointment. documented in this encounter [facility] 10-15-2021 Nurse Note Discharge instructions and prescriptions reviewed with and given to patient and family; both patient and family verbalized an understanding of instructions. Questions answered. documented in this encounter [facility] 10-15-2021 Nurse Surgical operation note Discharge instructions and prescriptions reviewed with and given to patient and family; both patient and family verbalized an understanding of instructions. Questions answered. [facility] [place] [facility] 10-15-2021 Note Formatting of this n ote [...] multimodal pain medication in accordance with our [facility] pain protocol, nausea medicine, and home exercises. He will be placed on the subscapularis rotator cuff repair protocol postoperatively. Intraoperative findings, procedures performed, and postoperative plan were discussed with the patient and family on the day of surgery. Sling 6 weeks PT 4 weeks [facility]: 10-15-2021 Note Formatting of this n ote might be different from the original. Katrina Melvin ([id number]) PRE OPERATIVE DIAGNOSIS Rotator cuff tear [M75.100] [...] - Primary ANESTHESIOLOGIST Anesthesiologist: Morteza Leon MD RESTAURANT HOST/HOSTESS: Victor Hugo Prescott APRN-RESTAURANT HOST/HOSTESS Escrow Processor: GILDA Morales SURGICAL STAFF Fur Joiner: Thelma Cabezas RN; Anamaria Delgado RN Scrub Person: Nena Wesley Eyelet Maker: Albina Roth COMPLICATIONS None ESTIMATED BLOOD LOSS Minimal SPECIMENS No specimen sent * No specimens in log * Butch Manzanares MD October 15, 2021 9:36 AM [facility] 10-15-2021 Miscellaneous Notes PATIENT NAME: Katrina [...] multimodal pain medication in accordance with our [facility] pain protocol, nausea medicine, and home exercises. He will be placed on the subscapularis rotator cuff repair protocol postoperatively. Intraoperative findings, procedures performed, and postoperative plan were discussed with the patient and family on the day of surgery. Sling 6 weeks PT 4 weeks Katrina Melvin ([id number]) PRE OPERATIVE DIAGNOSIS Rotator cuff tear [M75.100] [...] - Primary ANESTHESIOLOGIST Anesthesiologist: Morteza Leon MD RESTAURANT HOST/HOSTESS: Victor Hugo Prescott APRN-RESTAURANT HOST/HOSTESS Escrow Processor: GILDA Morales SURGICAL STAFF Fur Joiner: Thelma Cabezas RN; Anamaria Delgado RN Scrub Person: Nena Wesley Eyelet Maker: Albina Roth COMPLICATIONS None ESTIMATED BLOOD LOSS Minimal SPECIMENS No specimen sent * No specimens in log * Butch Manzanares MD October 15, 2021 9:36 AM documented in this encounter [facility] [place] [facility] 10-15-2021 Hospital Discharge instructions Burt Andrea PA-C - 10/15/2021 6:28 AM EDT Images from the original note were not included. [facility] Dr. Sean Fish [facility] [place] Dr[address] Shima Carrasco [address] [facility], [address] Dr. Butch Manzanares Silvina Acharya PA-C ASIF [...] after hours or on the weekend, call [phone] and at the prompt select option 2 - Orthopedics contract programmer. Do not select Sports Medicine option SLING [...] with food, and also consider using an jxux-naa-tfhqfll stool softener. Unused Medication: Visit the site [...] within 5 days after surgery, you can strip picker over the counter Milk of Magnesia at [...] after hours or on the weekend, call [phone] and at the prompt select option 2 - Orthopedics contract programmer. Do not select Sports Medicine option Increased [...] Please visit our website for further information: [email or web address] documented in this encounter [facility] [place] [facility] 10-15-2021 Attending History and physical note PERIOPERATIVE [...] In compliance with the laws of the [facility] [employer] of [place], the following conditions have been met for [...] The patient's account was reviewed on the [place] [employer] Rx Reporting System: [employer]. Their controlled substance medication history was found to be aligned with health and medication history. Patient has had no adverse outcomes with this medication. Burt Andrea PA-C, 10/15/2021, 6:27 AM. Source Note - Lizandro Reyes, TOBACCO CURER-ALTERATION WORKER - 10/03/2021 12:30 PM EDT Pre-Operative Assessment [...] mg by mouth daily only as needed Wvdlco-Quphsplif-Hxnjfzbg-MSM (GLUCOSAMINE CHONDROITIN JOINT PO) Oral, DAILY magnesium oxide (MAG-OX) 400 mg, Oral, DAILY METHIMAZOLE PO 5 mg, Oral, DAILY Multiple Vitamins-Minerals (MULTIVITAMIN ADULT PO) 1 tablet, Oral, DAILY Probiotic Product (PROBIOTIC ADVANCED PO) Oral, NEEDED sacubitril-valsartan 97-103 MG tablet 1 tablet, Oral, 2 TIMES DAILY spironolactone (ALDACTONE) 25 mg, Oral, DAILY ALLERGIES: Allergies Allergen Reactions [facility] [Perflutren Lipid Microsphere] Back pain [...] Do Not take the morning of surgery Doennn-Fviqsllir-Rrwtlqsp-MSM (GLUCOSAMINE CHONDROITIN JOINT PO) Do Not take [...] Melvin. ABDIAZIZ Bai Division of Hospital Medicine [facility] 10-15-2021 History and physical note PERIOPERATIVE [...] In compliance with the laws of the [employer] of [place], the following conditions have been met for [...] The patient's account was reviewed on the [place] Automated Rx Reporting System: [employer]. Their controlled substance medication history was found to be aligned with health and medication history. Patient has had no adverse outcomes with this medication. Burt Andrea PA-C, 10/15/2021, 6:27 AM. Source Note - Lizandro Reyes APRN-ALTERATION WORKER - 10/03/2021 12:30 PM EDT Pre-Operative Assessment [...] mg by mouth daily only as needed Lswqhk-Dowbikgcp-Heaprydi-MSM (GLUCOSAMINE CHONDROITIN JOINT PO) Oral, DAILY magnesium oxide (MAG-OX) 400 mg, Oral, DAILY METHIMAZOLE PO 5 mg, Oral, DAILY Multiple Vitamins-Minerals (MULTIVITAMIN ADULT PO) 1 tablet, Oral, DAILY Probiotic Product (PROBIOTIC ADVANCED PO) Oral, NEEDED sacubitril-valsartan 97-103 MG tablet 1 tablet, Oral, 2 TIMES DAILY spironolactone (ALDACTONE) 25 mg, Oral, DAILY ALLERGIES: Allergies Allergen Reactions Carole Porter [facility] [Perflutren Lipid Microsphere] Back pain center REVIEW [...] Do Not take the morning of surgery Hwsqbj-Zyhoqflir-Aaxmstoe-MSM (GLUCOSAMINE CHONDROITIN JOINT PO) Do Not take [...] Hospital Medicine documented in this encounter [facility] [place] [facility] 10-03-2021 Instructions ABDIAZIZ Bai - 10/03/2021 12:53 [...] 3. DO NOT wear lotion, makeup, nail czech, contact lens, or perfume/cologne. 4. DO NOT [...] Do Not take the morning of surgery Mjezax-Msibsuzka-Ciaaivcq-MSM (GLUCOSAMINE CHONDROITIN JOINT PO) Do Not take [...] days prior to surgery Follow instructions per network consultant if differ from above instructions. Medications that [...] for your preoperative testing, please contact the [facility] Preadmission Testing Center at [phone]. Please direct any questions regarding your surgery to your surgeon s office documented in this encounter [facility] [place] [facility] 10-03-2021 History and physical note Pre-Operative [...] mg by mouth daily only as needed Fbteph-Tjwzidhse-Ausbsqon-MSM (GLUCOSAMINE CHONDROITIN JOINT PO) Oral, DAILY magnesium oxide (MAG-OX) 400 mg, Oral, DAILY METHIMAZOLE PO 5 mg, Oral, DAILY Multiple Vitamins-Minerals (MULTIVITAMIN ADULT PO) 1 tablet, Oral, DAILY Probiotic Product (PROBIOTIC ADVANCED PO) Oral, NEEDED sacubitril-valsartan 97-103 MG tablet 1 tablet, Oral, 2 TIMES DAILY spironolactone (ALDACTONE) 25 mg, Oral, DAILY ALLERGIES: Allergies Allergen Reactions [facility] [Perflutren Lipid Microsphere] Back pain [...] Do Not take the morning of surgery Gukfmk-Fnesmrlrp-Vhzggmmm-MSM (GLUCOSAMINE CHONDROITIN JOINT PO) Do Not take [...] Melvin. ABDIAZIZ Bai Division of Hospital Medicine [facility] 10-03-2021 History and physical note Pre-Operative [...] mg by mouth daily only as needed Zpkhzr-Ybvzxddos-Zkragfqp-MSM (GLUCOSAMINE CHONDROITIN JOINT PO) Oral, DAILY magnesium oxide (MAG-OX) 400 mg, Oral, DAILY METHIMAZOLE PO 5 mg, Oral, DAILY Multiple Vitamins-Minerals (MULTIVITAMIN ADULT PO) 1 tablet, Oral, DAILY Probiotic Product (PROBIOTIC ADVANCED PO) Oral, NEEDED sacubitril-valsartan 97-103 MG tablet 1 tablet, Oral, 2 TIMES DAILY spironolactone (ALDACTONE) 25 mg, Oral, DAILY ALLERGIES: Allergies Allergen Reactions [facility] [Perflutren Lipid Microsphere] Back pain [...] Do Not take the morning of surgery Rqqhqy-Iudzywcgx-Khdfmppb-MSM (GLUCOSAMINE CHONDROITIN JOINT PO) Do Not take [...] of Hospital Medicine documented in this encounter [facility] 10-03-2021 Miscellaneous Notes Addended by: LIZANDRO REYES on: 10/07/2021 02:17 PM Modules accepted: Orders documented in this encounter [facility] 10-03-2021 Note Addended by: LIZANDRO REYES on: 10/07/2021 02:17 PM Modules accepted: Orders [facility] 09-19-2021 Note HNO ID: [id number] Author: Al Winter, DO Service: ? Author [...] that was unremarkable. Please see results in [facility] electronic record 06/21/2016. However the CT [...] Etiology not determined. He was evaluated at [facility] and subsequently [facility]. Evidently cardiac catheterization [...] is nondistended. Ex (more content not included)... [facility] 09-19-2021 History of Present illness Narrative [...] that was unremarkable. Please see results in [facility] electronic record 06/21/2016. However the CT [...] Etiology not determined. He was evaluated at [facility] and subsequently [facility]. Evidently cardiac catheterization [...] Al Winter DO documented in this encounter [facility] 09-14-2021 Miscellaneous Notes I called and [...] prescribed blood thinner. documented in this encounter [facility] 09-12-2021 History of Present illness Narrative [...] shoulder pain. 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 Tremont's test is positive. Speed's sign is negative. [...] glucose control. 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)- Primary [facility] Preoperative examination- Primary Preoperative examination, unspecified Chronic systolic heart failure Type 2 diabetes mellitus with hyperglycemia, with long-term current use of insulin Chronic right shoulder pain Pain in joint, shoulder region Rotator cuff tear Rotator cuff (capsule) sprain [facility] [place] [facility] Diagnosis S/P shoulder surgery- Primary Other postprocedural status Preoperative examination Preoperative examination, unspecified [facility] Diagnosis S/P rotator cuff repair- Primary Other postprocedural status [facility] [place] [facility] Diagnosis S/P rotator cuff repair- Primary Other postprocedural status [facility] Diagnosis S/P rotator cuff repair- Primary Other postprocedural status [facility] Diagnosis Dilated cardiomyopathy- Primary Other primary cardiomyopathies [facility] Diagnosis S/P rotator cuff repair- Primary Other postprocedural status [facility] [place] [facility] Diagnosis Dilated cardiomyopathy- Primary Other primary cardiomyopathies [facility] Diagnosis 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- Primary Other chronic nonalcoholic liver disease [facility] Diagnosis WILSON (nonalcoholic steatohepatitis)- Primary Other chronic nonalcoholic liver disease [facility]* Diagnosis Dilated cardiomyopathy- Primary Other primary cardiomyopathies [facility] [place] [facility] N[facility]* Auth/Cert Specialty Diagnoses / Procedures Referred By Nhan mix Referred To Contact Diagnoses Rotator cuff tear Rotator cuff tear [M75.100] Procedures CO SHLDR ARTHROSCOP,SURG,W/ROTAT CUFF REPR CO SHOULDER SCOPE BONE SHAVING CO REPAIR BICEPS LONG TENDON ARTHROSCOPY SHOULDER W/ ROTATOR CUFF REPAIR ARTHROSCOPY SHOULDER W/ SUBACROMIAL DECOMPRESSION/ACROMIOPLASTY ADD-ON PX TENODESIS BICEPS LONG TENDON Referral ID Status Reason Start Date Expiration Date Visits Re quested Visits Authorized [id number] 1 1 [facility] Reason for Referral Specialty Diagnoses / Procedures Referred By Nhan mix Referred To Contact Diagnoses Left shoulder pain, unspecified chronicity Procedures XR SHOULDER LEFT MIN 2 VIEWS Butch Manzanares MD [address] [place] [address] Referral ID Status Reason Start Date Expiration Date V isits Requested Visits Authorized [id number] Pending Review 09/11/2021 10/06/2022 1 1 Specialty Diagnoses / Procedures Referred By Nhan mix Referred To Contact Diagnoses Preoperative examination Procedures ECG Lizandro Reyes, TOBACCO CURER-ALTERATION [place] [address] Referral ID Status Reason Start Date Expiration Date V isits Requested Visits Authorized [id number] New Request 10/03/2021 10/28/2022 1 1 Specialty Diagnoses / Procedures Referred By Contact Referred To Contact Sports Medicine and Rehabilitation Diagnoses S/P rotator cuff repair Burt Andrea PA-C [address] [place] [address] Referral ID Status Reason Start Date Expiration Date V isits Requested Visits Authorized [id number] New Request 10/27/2021 11/21/2022 1 1 Scheduling Instructions [facility] at [address] Room: [address] [address] [phone] FAX [facility] [place] [address] [place] [address] FAX [facility] [address] [place], [place] [id number] FAX [facility] [place] [address] [facility] [address] [place], [place] [address] FAX Outpatient Rehabilitation [facility] [place] [address] [place] [address], [address] [place] [address] FAX [facility] [place] [address] [facility], [address] [place], [place] [address] FAX [facility] [address] [facility] - [address] [place] [address] FAX [facility] [place] [address] [facility] [place] [address] FAX [facility] [employer] [address] [place], [place] [id number] FAX [facility] [address] [place], [place] [address] FAX Specialty Diagnoses / Procedures Referred By Contac t Referred To Contact Nutrition and Dietetics Diagnoses Liver cirrhosis secondary to Reuben Pritchard MD [address] [place] [address] [place] [address] Referral ID Status Reason Start Date Expiration Date V isits Requested Visits Authorized [id number] New Request 10/23/2022 11/17/2023 1 1 Advance [...] LEFT MIN 2 VIEWS Butch Manzanares MD [address] [place] [address] Referral ID Status Reason Start Date Expiration Date V isits Requested Visits Authorized [id number] Pending Review 09/11/2021 10/06/2022 1 1 Reason Comments Patient Question Reason Comments Established Patient Specialty Diagnoses / Procedures Referred By Contac t Referred To Contact Hematology/Oncology / HEMATOLOGY/ONCOLOGY Diagnoses Pre-operative clearance OV, surgery clearance see phone note 09/12* Procedures OFFICE/OUTPATIENT ESTABLISHED HIGH MDM 40-54 MIN EST COMPLEX Al Winter DO [address] [place] [address] Al Winter, DO [address] [place] [address] Referral ID Status Reason Start Date Expiration Date Visits Re quested Visits Authorized [id number] Closed 09/19/2021 09/28/2022 1 1 Reason Comments [...] Contact Gastroenterology Diagnoses Hepatic fibrosis CindyJeniffer DO [address] [place] [address] [place] [address] [facility] [address] [place] [address] Referral ID Status Reason Start Date Expiration Date V isits Requested Visits Authorized [id number] Pending Review 09/08/2022 10/03/2023 1 1 Reason Comments Follow-up Patient states here for follow up. Patient states not having as many symptoms as last visit Care Teams (unrecognized sec tion and content) Nuclear Plant Operator Relationship Specialty Start Date End Date Jeniffer Houston DO [address] [place] [address] [place] [address] PCP - General Family Medicine 04/04/18 Nuclear Plant Operator Relationship Specialty Start Date End Date Fredy Enamorado MD PCP - General 03/02/08 Nuclear Plant Operator Relationship Specialty Start Date End Date Fredy Enamorado MD PCP - General 03/02/08 Nuclear Plant Operator Relationship Specialty Start Date End Date Jeniffer Houston DO [address] [place] [address] [place] [address] PCP - General Family Medicine 04/04/18 Nuclear Plant Operator Relationship Specialty Start Date End Date Jeniffer Houston DO [address] [place] [address] [place] [phone] PCP - General Family Medicine 04/04/18 Nuclear Plant Operator Relationship Specialty Start Date End Date Jeniffer Houston DO [address] [place] [address] [place] [phone] PCP - General Family Medicine 04/04/18 Nuclear Plant Operator Relationship Specialty Start Date End Date Jeniffer Houston DO [address] [place] [address] [place] [phone] PCP - General Family Medicine 04/04/18 Nuclear Plant Operator Relationship Specialty Start Date End Date Jeniffer Houston DO [address] [place] [address] [place] [phone] PCP - General Family Medicine 04/04/18 Nuclear Plant Operator Relationship Specialty Start Date End Date Jeniffer Houston DO [address] [place] [address] [place] [phone] PCP - General Family Medicine 04/04/18 Nuclear Plant Operator Relationship Specialty Start Date End Date Fredy Enamorado MD PCP - General 03/02/08 Nuclear Plant Operator Relationship Specialty Start Date End Date Jeniffer Houston, [address] [place] [address] [place] [phone] PCP - General Family Medicine 04/04/18 Nuclear Plant Operator Relationship Specialty Start Date End Date Jeniffer Houston DO [address] [place] [address] [place] [phone] PCP - General Family Medicine 04/04/18 Nuclear Plant Operator Relationship Specialty Start Date End Date Jeniffer Houston DO [address] [place] [address] [place] [id number] PCP - General Family Medicine 04/04/18 [employer] Plant [employer] Relationship Specialty Start Date End Date Jeniffer Houston DO [address] [place] [address] [place] [phone] PCP - General Family Medicine 04/04/18 Nuclear Plant Operator Relationship Specialty Start Date End Date Jeniffer Houston DO [address] [place] [address] [place] [phone] PCP - General Family Medicine 04/04/18 Nuclear Plant Operator Relationship Specialty Start Date End Date Jeniffer Houston DO [address] [place] [address] PCP - General Family Medicine 04/04/18 Source Comments (unrecognize d section and content) In the event this informatio n is protected by the Federal Confidentiality of Alcohol and Drug Abuse Patient Records regulations: The Federal rules restrict any use of the information to criminally investigate or prosecute any alcohol or drug abuse patient.[facility] the event this information is protected by the Federal Confidentiality of Alcohol and Drug Abuse Patient Records regulations: The Federal rules restrict any use of the information to criminally investigate or prosecute any alcohol or drug abuse patient.[facility] the event this information is protected by the Federal Confidentiality of Alcohol and Drug Abuse Patient Records regulations: The Federal rules restrict any use of the information to criminally investigate or prosecute any alcohol or drug abuse patient.[facility] (unrecognized sect ion and content) No Status Records FoundNo Status Records Found INFORMATION SOURCE (unrecogn ized section and content) DATE CREATED AUTHOR AUTHOR'S ORGANIZ ATION 04/27/2023 [facility] Scheduled Active and Recently Administ ered [...] glucose is greater than 200mg/dl, then notify housesmith. , Pre-op/Pre-Proc And BLOOD GLUCOSE (POC DEVICE) [...] glucose is greater than 200mg/dl, then notify housesmith. , Recovery And BLOOD GLUCOSE (POC DEVICE) [...] glucose is greater than 200mg/dl, then notify housesmith. , Recovery And BLOOD GLUCOSE (POC DEVICE) [...] BE BASED ON THE PRIMARY CLINICAL RECORDS. [facility]. provides no warranty or guarantee of the accuracy or completeness of information in this document.
[2023-07-20 09:57] LABS: Absolute Lymphocyte Count 1.86 X10^3/uL (0.83-4.51); Absolute Neutrophil Count 3.6 X10^3/uL (2.0-7.7); Basophil# 0.04 X10^3/uL; Basophil% 0.7 % (0-1); Eosinophil# 0.04 X10^3/uL; Eosinophils% 0.7 % (0-5); Hematocrit 44.8 % (40-54); Lymphocyte # 1.86 X10^3/ul (0.83-4.51); Lymphocyte % 30.8 % (19-41); Mean Corp Hgb Conc 33.5 g/dL (32-36); Mean Corpuscular Hgb 30.1 pg (27.0-32.0); Mean Corpuscular Volume 89.8 fL (80-94); Mean Platelet Vol. 9.2 fl (6.2-12.0); Monocyte# 0.52 X10^3/uL; Monocyte% 8.6 % (0-10); NRBC Flagged by Analyzer 0 % (0-5); Neutrophil # 3.56 X10^3/uL (2.7-7.7); Neutrophil % 58.9 % (47-70); Platelet Count 241 K/mm3 (150-450); RBC Distribution Width CV 12.8 % (11.6-14.6); RBC Distribution Width SD 42.3 fl (35.1-43.9); Red Blood Count 4.99 M/mm3 (4.6-6.2)
[2023-07-20 10:16] LABS: International Normalized Ratio 0.9; Prothrombin Time (Protime)PT. 12.5 SECONDS (11.7-14.9)
[2023-07-20 10:17] LABS: Partial Thromboplast Time 33.4 Seconds (24.1-36.2)
[2023-07-20 10:35] LABS: Hemoglobin A1c 7.5 % (3.8-5.6)
[2023-07-20 10:49] LABS: Microalbumin,Random Urine 7.2 mg/L (NO RANGE EST.)
[2023-07-20 11:03] LABS: AST(SGOT) 14 U/L (15-37); Alanine Aminotransfer ALT/SGPT 30 U/L (16-61); Albumin, Serum 3.8 g/dL (3.2-5.0); Alkaline Phosphatase 89 U/L (45-117); Anion Gap 7 (5-15); BUN 22 mg/dL (7-18); BUN/Creat Ratio 29.9 RATIO (10-20); Bilirubin, Direct 0.13 mg/dL (0.00-0.30); Chloride 103 mmol/L (98-107); Cholesterol 196 mg/dL (200); Creatinine, Serum 0.74 mg/dL (0.70-1.30); EST Glomerular Filtration Rate 121 mL/min (>60); Est Glom Filt Rate - Afr Amer 146 mL/min (>60); Globulin 3.4 g/dL (2.2-4.2); Glucose 232 mg/dL (74-106); High Density Lipoprotein 38 mg/dL; Potassium 3.3 mmol/L (3.5-5.1); Protein, Total 7.2 g/dL (6.4-8.2); Sodium Level 134 mmol/L (136-145); T4 Free Direct 1.04 ng/dL (0.76-1.46); Thyroid Stim Hormone (TSH) 2.97 uIU/mL (0.358-3.74); Triglycerides 593 mg/dL
[2023-07-21 12:09] LABS: AFP, Tumor Marker < 1.8 ng/mL (0.0-6.9)
== END | disposition home or self-care (01) ==
PROVIDERS: PCP Family Medicine; Referring Provider Family Medicine; Visit Provider Family Medicine
DX: K75.81 Nonalcoholic steatohepatitis (NASH) (principal); K74.60 Unspecified cirrhosis of liver; E11.65 Type 2 diabetes mellitus with hyperglycemia; E05.90 Thyrotoxicosis, unspecified without thyrotoxic crisis or storm
CPT/HCPCS: 36415; 80048; 80061; 80076; 82043; 82105; 82570; 83036; 84439; 84443; 85025; 85610; 85730

== ENCOUNTER → 2023-10-27 | Outpatient (CLI) | payer BC, SELFPAY ==
[2023-10-27 10:22] LABS: Absolute Lymphocyte Count 1.79 X10^3/uL (0.83-4.51); Absolute Neutrophil Count 2.9 X10^3/uL (2.0-7.7); Basophil# 0.02 X10^3/uL; Basophil% 0.4 % (0-1); Eosinophil# 0.04 X10^3/uL; Eosinophils% 0.8 % (0-5); Hematocrit 45.6 % (40-54); Hemoglobin 15.3 g/dL (13.0-16.5); Lymphocyte # 1.79 X10^3/ul (0.83-4.51); Lymphocyte % 34.3 % (19-41); Mean Corp Hgb Conc 33.6 g/dL (32-36); Mean Corpuscular Hgb 29.6 pg (27.0-32.0); Mean Corpuscular Volume 88.2 fL (80-94); Mean Platelet Vol. 9.7 fl (6.2-12.0); Monocyte# 0.47 X10^3/uL; NRBC Flagged by Analyzer 0 % (0-5); Neutrophil # 2.88 X10^3/uL (2.7-7.7); Neutrophil % 55.1 % (47-70); Platelet Count 235 K/mm3 (150-450); RBC Distribution Width CV 12.7 % (11.6-14.6); RBC Distribution Width SD 41.3 fl (35.1-43.9); Red Blood Count 5.17 M/mm3 (4.6-6.2); White Blood Count 5.2 K/mm3 (4.4-11.0)
[2023-10-27 10:27] LABS: Prothrombin Time (Protime)PT. 12.6 SECONDS (11.7-14.9)
[2023-10-27 10:28] LABS: Partial Thromboplast Time 29.8 Seconds (24.1-36.2)
[2023-10-27 11:12] LABS: BNP,B-Type NATRIURETIC PEPTIDE 16.7 pg/mL (0-100)
[2023-10-27 11:13] LABS: Hemoglobin A1c 8.1 % (3.8-5.6)
[2023-10-27 11:20] LABS: AST(SGOT) 12 U/L (15-37); Alanine Aminotransfer ALT/SGPT 27 U/L (16-61); Albumin, Serum 3.9 g/dL (3.2-5.0); Alkaline Phosphatase 79 U/L (45-117); Anion Gap 11 (5-15); BUN 25 mg/dL (7-18); BUN/Creat Ratio 33.2 RATIO (10-20); Bilirubin, Direct 0.13 mg/dL (0.00-0.30); Calcium,Total 8.9 mg/dL (8.5-10.1); Chloride 102 mmol/L (98-107); Cholesterol 240 mg/dL (200); Creatinine, Serum 0.75 mg/dL (0.70-1.30); EST Glomerular Filtration Rate 117 mL/min (>60); Est Glom Filt Rate - Afr Amer 142 mL/min (>60); Globulin 3.4 g/dL (2.2-4.2); Glucose 279 mg/dL (74-106); High Density Lipoprotein 36 mg/dL; Potassium 3.5 mmol/L (3.5-5.1); Protein, Total 7.3 g/dL (6.4-8.2); Sodium Level 136 mmol/L (136-145); Triglycerides 657 mg/dL
[2023-10-28 05:07] LABS: AFP, Tumor Marker < 1.8 ng/mL (0.0-6.9); Hepatitis A AB, Total Negative (Negative); LDL, Direct 120295 121 mg/dL (0-99)
== END | disposition home or self-care (01) ==
PROVIDERS: PCP Family Medicine; Referring Provider Family Medicine; Visit Provider Family Medicine
DX: K75.81 Nonalcoholic steatohepatitis (NASH) (principal); K74.69 Other cirrhosis of liver; I42.0 Dilated cardiomyopathy; E11.9 Type 2 diabetes mellitus without complications; E87.6 Hypokalemia; E78.1 Pure hyperglyceridemia; R06.02 Shortness of breath
CPT/HCPCS: 36415; 80048; 80061; 80076; 82105; 83036; 83721; 83880; 85025; 85610; 85730; 86708

== ENCOUNTER → 2023-12-03 | Outpatient (CLI) | payer BC, SELFPAY | END | disposition home or self-care (01) | LOC: SL 08:12 | PROVIDERS: PCP Family Medicine; Referring Provider Family Medicine; Visit Provider Family Medicine | DX: G47.10 Hypersomnia, unspecified (principal) | CPT/HCPCS: 95806 ==

== ENCOUNTER → 2024-01-21 | Outpatient (CLI) | payer BC, SELFPAY | END | disposition home or self-care (01) | PROVIDERS: PCP Family Medicine; Visit Provider Family Medicine | DX: G47.33 Obstructive sleep apnea (adult) (pediatric) (principal) | CPT/HCPCS: 95811 ==

== ENCOUNTER → 2024-02-04 | Outpatient (CLI) | payer BC, SELFPAY ==
[2024-02-04 10:59] LABS: Cholesterol 227 mg/dL (200); High Density Lipoprotein 42 mg/dL; T4 Free Direct 0.87 ng/dL (0.76-1.46); Triglycerides 425 mg/dL
== END | disposition home or self-care (01) ==
LOC: MTLAB 07:08
PROVIDERS: PCP Family Medicine; Referring Provider Family Medicine; Visit Provider Family Medicine
DX: E11.9 Type 2 diabetes mellitus without complications (principal); E05.90 Thyrotoxicosis, unspecified without thyrotoxic crisis or storm
CPT/HCPCS: 36415; 80061; 83036; 84439; 84443

== ENCOUNTER → 2024-02-07 | Outpatient (CLI) | payer BC, SELFPAY | END | disposition home or self-care (01) | LOC: SL 12:54 | PROVIDERS: PCP Family Medicine; Visit Provider Family Medicine | DX: Z99.89 Dependence on other enabling machines and devices (principal) ==

== ENCOUNTER → 2024-03-04 | Outpatient (CLI) | payer BC, SELFPAY ==
--- NOTE | 2024-03-04 10:02 | US_ITS ---
STUDY: ABDOMINAL ULTRASOUND - RIGHT UPPER QUADRANT; ELASTOGRAPHY REASON FOR VISIT: Male, 48 years old. WILSON TECHNIQUE: Ultrasound evaluation of the right upper quadrant was performed with real-time and static duffy-scale imaging. Point quantification shear wave elastography was performed (citiservi). TECHNICAL QUALITY: Adequate. COMPARISON: Comparison is made with prior study dated June 19, 2022. FINDINGS: Liver: The liver is enlarged and measures 23.7 cm. There is increased echogenicity consistent with fatty infiltration. The bile ducts are within normal limits. There is hepatic color flow. The direction of portal flow is hepatopetal. There is no demonstrated mass lesion. Median liver stiffness measured 6.8 kPa. Gallbladder: Normal distended gallbladder. The gallbladder wall measures 2.0 mm. There is a negative sonographic Quiroz''s sign. There is no pericholecystic fluid. There are no gallstones. Common Bile Duct (C.B.D.): The common bile duct measures 3.3 mm. Pancreas: There is normal echogenicity of the visualized pancreas. There is no demonstrated pancreatic mass or cyst. Right Kidney: Normal size of the right kidney. The right kidney measures 13 cm x 6.8 cm x 5.9 cm. Normal renal cortex. The right cortex measures 1.2 cm. There is no demonstrated renal mass or cyst. There is no right hydronephrosis. US/ABD Limited w/ Elastography IMPRESSION: 1. Liver stiffness measures 6.8 kPa compatible with F2-F3 (Mild to moderate liver fibrosis) Metavir score. 2. Hepatomegaly and fatty infiltration of the liver. Electronically Signed: Lyle Marroquin MD at 15:08 EDT ,
== END | disposition home or self-care (01) ==
PROVIDERS: PCP Family Medicine
DX: K75.81 Nonalcoholic steatohepatitis (NASH) (principal); K74.60 Unspecified cirrhosis of liver
CPT/HCPCS: 76705; 76981

== ENCOUNTER → 2024-05-02 | Outpatient (CLI) | payer BC, SELFPAY ==
[2024-05-02 10:09] LABS: Absolute Lymphocyte Count 2.05 X10^3/uL (0.83-4.51); Absolute Neutrophil Count 3.4 X10^3/uL (2.0-7.7); Basophil# 0.03 X10^3/uL; Basophil% 0.5 % (0-1); Eosinophil# 0.07 X10^3/uL; Eosinophils% 1.2 % (0-5); Hemoglobin 15.7 g/dL (13.0-16.5); Lymphocyte # 2.05 X10^3/ul (0.83-4.51); Lymphocyte % 33.7 % (19-41); Mean Corp Hgb Conc 33.4 g/dL (32-36); Mean Corpuscular Hgb 30.3 pg (27.0-32.0); Mean Corpuscular Volume 90.7 fL (80-94); Mean Platelet Vol. 9.7 fl (6.2-12.0); Monocyte# 0.46 X10^3/uL; Monocyte% 7.6 % (0-10); NRBC Flagged by Analyzer 0 % (0-5); Neutrophil # 3.44 X10^3/uL (2.7-7.7); Neutrophil % 56.5 % (47-70); Platelet Count 264 K/mm3 (150-450); RBC Distribution Width CV 13.5 % (11.6-14.6); RBC Distribution Width SD 45.1 fl (35.1-43.9); Red Blood Count 5.18 M/mm3 (4.6-6.2); White Blood Count 6.1 K/mm3 (4.4-11.0)
[2024-05-02 10:24] LABS: Prothrombin Time (Protime)PT. 13.1 SECONDS (11.7-14.9)
[2024-05-02 10:25] LABS: Partial Thromboplast Time 38.3 Seconds (24.1-36.2)
[2024-05-02 10:46] LABS: AST(SGOT) 27 U/L (15-37); Alanine Aminotransfer ALT/SGPT 53 U/L (16-61); Albumin, Serum 4.2 g/dL (3.2-5.0); Alkaline Phosphatase 85 U/L (45-117); Anion Gap 10 (5-15); BUN 22 mg/dL (7-18); BUN/Creat Ratio 26.1 RATIO (10-20); Bilirubin, Direct 0.13 mg/dL (0.00-0.30); Calcium,Total 9.7 mg/dL (8.5-10.1); Chloride 100 mmol/L (98-107); Creatinine, Serum 0.84 mg/dL (0.70-1.30); EST Glomerular Filtration Rate 103 mL/min (>60); Est Glom Filt Rate - Afr Amer 125 mL/min (>60); Globulin 3.4 g/dL (2.2-4.2); Glucose 283 mg/dL (74-106); Potassium 4.4 mmol/L (3.5-5.1); Protein, Total 7.6 g/dL (6.4-8.2); Sodium Level 134 mmol/L (136-145)
[2024-05-02 12:33] LABS: Hemoglobin A1c 9.3 % (3.8-5.6)
[2024-05-03 04:09] LABS: AFP, Tumor Marker < 1.8 ng/mL (0.0-6.9)
== END | disposition home or self-care (01) ==
LOC: MTLAB 07:31
PROVIDERS: PCP Family Medicine
DX: E11.9 Type 2 diabetes mellitus without complications (principal); K75.81 Nonalcoholic steatohepatitis (NASH)
CPT/HCPCS: 36415; 80048; 80076; 82105; 83036; 85025; 85610; 85730

== ENCOUNTER → 2024-08-09 | Outpatient (CLI) | payer BC, SELFPAY ==
[2024-08-09 11:15] LABS: Hemoglobin A1c 7.6 % (3.8-5.6)
== END | disposition home or self-care (01) ==
LOC: MTLAB 07:15
PROVIDERS: PCP Family Medicine; Referring Provider Family Medicine; Visit Provider Family Medicine
DX: E11.9 Type 2 diabetes mellitus without complications (principal)
CPT/HCPCS: 36415; 83036

== ENCOUNTER → 2024-10-27 | Outpatient (CLI) | payer BC, SELFPAY ==
[2024-10-27 10:27] LABS: Absolute Lymphocyte Count 1.55 X10^3/uL (0.83-4.51); Absolute Neutrophil Count 3.3 X10^3/uL (2.0-7.7); Basophil# 0.03 X10^3/uL; Basophil% 0.5 % (0-1); Eosinophils% 1.8 % (0-5); Hematocrit 45.5 % (40-54); Hemoglobin 15.1 g/dL (13.0-16.5); Lymphocyte # 1.55 X10^3/ul (0.83-4.51); Lymphocyte % 27.9 % (19-41); Mean Corp Hgb Conc 33.2 g/dL (32-36); Mean Corpuscular Hgb 30.3 pg (27.0-32.0); Mean Corpuscular Volume 91.4 fL (80-94); Mean Platelet Vol. 9.5 fl (6.2-12.0); Monocyte# 0.54 X10^3/uL; Monocyte% 9.7 % (0-10); NRBC Flagged by Analyzer 0 % (0-5); Neutrophil # 3.32 X10^3/uL (2.7-7.7); Neutrophil % 59.7 % (47-70); Platelet Count 215 K/mm3 (150-450); RBC Distribution Width CV 13.7 % (11.6-14.6); RBC Distribution Width SD 46.2 fl (35.1-43.9); Red Blood Count 4.98 M/mm3 (4.6-6.2); White Blood Count 5.6 K/mm3 (4.4-11.0)
[2024-10-27 10:37] LABS: Partial Thromboplast Time 36.9 Seconds (24.1-36.2); Prothrombin Time (Protime)PT. 13.8 SECONDS (11.7-14.9)
[2024-10-27 10:49] LABS: Hemoglobin A1c 8.1 % (<=5.6)
[2024-10-27 11:02] LABS: ALB/GLOB Ratio 1.4 RATIO (0.9-2.4); AST(SGOT) 30 U/L (<=37); Alanine Aminotransfer ALT/SGPT 51 U/L (<=46); Albumin, Serum 4.3 g/dL (3.5-5.0); Alkaline Phosphatase 85 U/L (40-129); Anion Gap 12 (5-15); BUN 18 mg/dL (4-19); BUN/Creat Ratio 26.4 RATIO (10-20); Bilirubin, Direct 0.19 mg/dL (0.00-0.30); Calcium,Total 9.1 mg/dL (7.6-11.0); Carbon Dioxide 22.9 mmol/L (21.0-32.0); Chloride 102 mmol/L (98-108); Cholesterol 232 mg/dL (<=200); EST Glomerular Filtration Rate 113 (>60); Glucose 218 mg/dL (70-99); High Density Lipoprotein 38 mg/dL; Low Density Lipoprotein Calc. 94 mg/dL; Potassium 4.2 mmol/L (3.3-5.1); Protein, Total 7.3 g/dL (5.9-8.4); Sodium Level 137 mmol/L (133-145); Total Bilirubin 0.55 mg/dL (0.00-1.30); Triglycerides 500 mg/dL; Very Low Density Lipoprotein 100 mg/dL (5-40); cholesterol:hdl ratio screen 6.17
[2024-10-27 12:08] LABS: Microalbumin,Random Urine 18.8 mg/L (NO RANGE EST.); Microalbumin:Creatinine Ratio 214.9 mg/g CRE
[2024-10-28 04:07] LABS: AFP, Tumor Marker < 1.8 ng/mL (0.0-6.9)
== END | disposition home or self-care (01) ==
PROVIDERS: PCP Family Medicine; Referring Provider Family Medicine; Visit Provider Family Medicine
DX: E11.65 Type 2 diabetes mellitus with hyperglycemia (principal); E05.90 Thyrotoxicosis, unspecified without thyrotoxic crisis or storm; K75.81 Nonalcoholic steatohepatitis (NASH)
CPT/HCPCS: 36415; 80053; 80061; 82043; 82105; 82248; 82570; 83036; 84439; 84443; 85025; 85610; 85730

== ENCOUNTER 2024-11-16 14:43 | Emergency (ER) | payer BC, SELFPAY ==
[2024-11-16 14:43] VITALS: BP 136/88; PULSE 94; RESP 15; TEMP 36; O2SAT 100; BMI 36.0
--- NOTE | 2024-11-16 14:58 | VDLE_ITS ---
Reason For Study Reason For Study: RLE Pain RIGHT LEFT GSV is normal. CFV is compressible, spontaneous, phasic, competent, CFV is compressible, spontaneous, phasic, competent and demonstrates normal augmentation. and demonstrates normal augmentation. FV is compressible, spontaneous, phasic, competent and demonstrates normal augmentation. POP V is compressible, spontaneous, phasic, competent and demonstrates normal augmentation. T/P Trunk is compressible. PTV is compressible. RT PerV is compressible. Nonvascularized hypoechoic area noted in Rt Medial Calf measuring approximately 12.25cm x 3.09cm. Procedure This is a venous duplex using B-mode, color flow and spectral Doppler. Exam performed portable in ED. The exam was diagnostic. A preliminary report was called and/or faxed to Dr. Reeder. VL/Venous Duplex US, Unilateral Interpretation Summary Deep veins of the right lower extremity are patent and compressible segmentally . There is no evidence of right lower extremity deep vein thrombosis. Valvular competence appears intact within the p roximal deep venous system on the right . The right great saphenous vein appears patent and compressible segmentally. A n on-vascular, hypoechoic structure is noted in the right medial calf, measuring 12.25 cm x 3.09 cm. This probably rep resents a seroma or hematoma. Clinical correlation is advised. The left common femoral vein is patent and compressible . Ordering Physician: Tad Reeder Referring Physician: Jose L Houston Performed By: Julio Hernandez, ANEUDY
--- NOTE | 2024-11-16 14:59 | EX.ED.DYSGE1 ---
HPI History of Present Illness Chief Complaint: Lower Extremity Injury Narrative Narrative: Patient is a 49-year-old male with a past medical history of DVT, PE on Lovenox 130 mg twice daily, type 2 diabetes, hypertension who presented to the emerged part with concern of right leg pain and swelling. Patient states that few weeks ago he originally had pain and swelling in his right leg he thought he hurt his calf muscle and states that he thought things would get better. He states that recently on Wednesday he went diving and preparation to go on a trip in 2 weeks to do scuba diving in [facility]. He states that on Wednesday when he woke up he had pain and swelling in his right calf leg again. He states that he has been trying vodx-dhm-cinskge medications as well as ice heat TENS units etc. without any symptomatic relief. He states that he he thought he was getting better however after work today he noted that he had significant pain and swelling therefore he came here for further evaluation management. He states that in the past he had an injury in the left leg and he had clot burden from his groin all the way to his foot. He states that this clot took a very long time to breakdown he states that Xarelto and Eliquis does not work on him he states that on his Lovenox he will cut himself and he will not bleed as expected for being on without much Lovenox. He is concerned that he has another clot in his leg on the right side [facility] Medical History Barretts esophagus Fatty liver Thyroid disease Arthritis DVT (deep venous thrombosis) Injury of back Injury of head and neck History of GI bleed Former smoker Shortness of breath on exertion Leg cramps History of edema History of echocardiogram History of stress test Cardiology follow-up encounter History of CHF (congestive heart failure) Rotator cuff arthropathy of left shoulder History of TIA (transient ischemic attack) Diabetes mellitus Hemorrhage of anus and rectum Idiopathic cardiomyopathy Thyroid nodule Essential (primary) hypertension 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 Type 2 diabetes mellitus Medial meniscus tear Diastolic dysfunction with heart failure DVT of leg (deep venous thrombosis) Contusion of left knee, initial encounter Other internal derangements of left knee Pain of left knee after injury Other tear of lateral meniscus, current injury, left knee, subsequent encounter Other tear of medial meniscus, current injury, left knee, subsequent encounter Pulmonary embolism (07/2016) Home Medications ?Medication ?Instructions ?Recorded ?Last Taken ?Type enoxaparin 150 mg/mL subcutaneous 135 mg subcut Q12@0600,1800 12/10/17 08/03/22 History syringe cholecalciferol (vitamin D3) 125 5,000 unit PO DAILY 04/24/18 Unknown History mcg (5,000 unit) capsule multivitamin 1 ea PO DAILY 04/24/18 Unknown History spironolactone 25 mg tablet 25 mg PO DAILY #90 tabs 09/08/18 Unknown Rx empagliflozin 10 mg tablet 10 mg PO DAILY 02/19/22 Unknown History (Jardiance) carvedilol 12.5 mg tablet 50 mg PO BID 07/06/22 07/08/22 History sacubitril 97 mg-valsartan 103 mg 1 tab PO BID 07/06/22 07/08/22 History tablet (Entresto) pantoprazole 40 mg tablet,delayed 40 mg PO QAM #90 tabs 09/18/22 Unknown Rx release furosemide 40 mg tablet (Lasix) 40 mg PO TID 04/30/23 Unknown History sulfamethoxazole 800 1 tab PO BID #14 tabs 04/30/23 Unknown Rx mg-trimethoprim 160 mg tablet (Bactrim DS) methimazole 5 mg tablet 5 mg PO DAILY 10/24/24 Unknown History potassium chloride 20 mEq 20 meq PO BID 10/24/24 Unknown History tablet,extended release semaglutide 2 mg/dose (8 mg/3 mL) 2 mg subcut QWEEK 10/24/24 Unknown History subcutaneous pen injector (Ozempic) Allergy/AdvReac Type Severity Reaction Status Date / Time codeine Allergy Other Verified 11/16/24 14:47 metformin Allergy Abd Verified 11/16/24 14:47 cramps/diarrhea perflutren (From [employer]) AdvReac Pain in Verified 11/16/24 14:47 joints Family History Father Hypertension Diabetes Mother Hypertension Diabetes Other Cervical cancer Myocardial infarction Skin cancer Surgical History History of cardiac catheterization History of left heart catheterization (03/04/18) torn cartilage behind knee Partially torn MCL Torn PCL Torn meniscus Social History Smoking Status: Former smoker how long ago did patient quit smokin, 2pks/day second hand exposure: Yes alcohol intake: current alcohol intake frequency: a few times a month substance use type: does not use ROS ROS ED ROS Narrative Constitutional: Denies fevers, chills, headaches Cardiovascular: Denies chest pain or palpitations Respiratory: Denies cough and shortness of breath Abdomen: Denies abdominal pain nausea vomit diarrhea : Denies urinary symptoms Neurological: Denies numbness, tingling weakness Musculoskeletal: Complains of right lower extremity pain and swelling as noted above Skin: Denies any rashes or lesions EXAM Physical Exam Narrative Exam Narrative: General: Patient lying in bed rest comfortably did not appear to be in acute distress Head: Atraumatic, normocephalic Eyes: PERRL bilateral, EOMI blood, no conjunctival injection noted Neck: Soft, supple and trachea midline Cardiovascular: Regular in rhythm Respiratory: Clear to auscultation bilaterally Musculoskeletal: Right lower extremity compartments are soft compressible the right calf region is firm but compressible he does have tenderness palpation of the right calf region Extremities: DP pulses +2/4 in the right lower extremity, +5/5 strength noted in the bilateral upper and lower extremities Neurological: Patient follow commands knew that he was at [facility] year is 2024. Sensation grossly intact bilaterally Skin: Warm, dry contact no rashes or lesions noted Const Vital Signs: 11/16/24 14:43 Temperature 96.8 F L Temperature Source Temporal Pulse Rate 94 Respiratory Rate 15 Blood Pressure 136/88 H Blood Pressure Mean 104 Pulse Ox 100 MDM MDM MDM Narrative Medical decision making narrative: patient is a 49-year-old male who presents to the emerged part with concern for DVT in the right lower extremity. On the differential diagnosis includes but limited to deep venous thrombosis, superficial venous thrombosis, calf strain. Once workup is obtained reviewed he will be reevaluated. Discharge Plan Triage Chief Complaint: Lower Extremity Injury ED Provider: Tad Reeder Dx/Rx/DC Orders Clinical Impression: Right calf pain, Hematoma of leg Prescriptions: No Action Jardiance 10 mg tablet 10 mg PO DAILY Ozempic 2 mg/dose (8 mg/3 mL) pen injector 2 mg subcut QWEEK potassium chloride 20 mEq tablet extended release 20 meq PO BID enoxaparin 150 MG/ML syringe 135 mg SC Q12@0600,1800 methimazole 5 mg tablet 5 mg PO DAILY multivitamin 1 EACH tablet 1 ea PO DAILY cholecalciferol (vitamin D3) 5,000 UNIT capsule 5,000 unit PO DAILY Entresto 97-103 mg tablet 1 tab PO BID carvedilol 12.5 mg tablet 50 mg PO BID Rx Instructions: give with food (meal/snack) furosemide [Lasix] 40 mg tablet 40 mg PO TID Patient Comments: pt. states he has to take 40 mg twice and the other 40 mg is a prn based on his weight sulfamethoxazole-trimethoprim [Bactrim DS] 800-160 mg tablet 1 tab PO BID Qty: 14 0RF spironolactone 25 mg tablet 25 mg PO DAILY Qty: 90 1RF pantoprazole 40 mg tablet,delayed release (DR/EC) 40 mg PO QAM Qty: 90 3RF Primary Care Provider: Jose L Houston Referrals: Jose L Houston, [Primary Care Provider] - Activity Restrictions/Additional Instructions: Your ultrasound here did not show any evidence of blood clots it did show a collection of blood in your calf region. Call your physician that manages your Lovenox to discuss with them if they think you should hold your Lovenox for a short period of time or not. Return with worsening symptoms or other concerns as discussed here. If you are developing worsening swelling, numbness in your leg, more pain and increasing firmness you need to return immediately Print Language: Lao Disposition Disposition: Home, Self Care
[2024-11-16 15:54] VITALS: BP 134/82; PULSE 85; RESP 18; TEMP 36.6; O2SAT 98
== END 2024-11-16 15:55 | disposition home or self-care (01) ==
PROVIDERS: Emergency Provider Emergency Medicine; PCP Family Medicine; Referring Provider Emergency Medicine; Visit Provider Emergency Medicine
DX: M79.661 Pain in right lower leg (principal); E11.9 Type 2 diabetes mellitus without complications; Z86.718 Personal history of other venous thrombosis and embolism; Z87.891 Personal history of nicotine dependence; Z83.3 Family history of diabetes mellitus; Z86.73 Personal history of transient ischemic attack (TIA), and cerebral infarction without residual deficits; I10 Essential (primary) hypertension; Z86.711 Personal history of pulmonary embolism; Z79.01 Long term (current) use of anticoagulants
CPT/HCPCS: 93971; 99282

== ENCOUNTER 2024-11-18 09:48 | Emergency (ER) | payer BC, SELFPAY ==
[2024-11-18 09:49] VITALS: BP 107/75; PULSE 83; RESP 18; TEMP 36.5; O2SAT 97; BMI 35.5
--- NOTE | 2024-11-18 10:46 | VDLE_ITS ---
Reason For Study Reason For Study: Pain RIGHT LEFT GSV is normal. CFV is compressible, spontaneous, phasic, competent, CFV is compressible, spontaneous, phasic, competent and demonstrates normal augmentation. and demonstrates normal augmentation. FV is compressible, spontaneous, phasic, competent and demonstrates normal augmentation. POP V is compressible, spontaneous, phasic, competent and demonstrates normal augmentation. T/P Trunk is compressible. PTV is compressible. RT PerV is compressible. Nonvascularized structure noted in the medial calf measuring 11.66 x 3.0 cm. Procedure This is a venous duplex using B-mode, color flow and spectral Doppler. Exam performed portable in ED. A preliminary report was called and/or faxed to Nicko Robbins DO. VL/Venous Duplex US, Unilateral Interpretation Summary Deep veins of the right lower extremity are patent and compressible segmentally . There is no evidence of right lower extremity deep vein thrombosis. Valvular competence appears intact within the p roximal deep venous system on the right . The right great saphenous vein appears patent and compressible segmentally. A n on-vascular structure with mixed echogenicity is noted in the right medial calf, measuring 11.66 cm x 3.0 cm. Th is probably represents a hematoma or seroma. Clinical correlation is advised. There has been no significant change s chase a prior study on 11/16/24. Ordering Physician: Nicko Robbins Referring Physician: Jose L Houston Performed By: Francy Kraus RVT
--- NOTE | 2024-11-18 10:46 | CT_ITS ---
EXAM: CT Extremity Lower Contra Without Intravenous Contrast CLINICAL INDICATION: PAIN, US CONCERNING FOR HEMATOMA TECHNIQUE: Axial computed tomography images of the extremity lower contra without intravenous contrast. This CT exam was performed using one or more of the following dose reduction techniques: automated exposure control, adjustment of the mA and/or kV according to patient size, and/or use of iterative reconstruction technique. COMPARISON: No relevant prior studies available. FINDINGS: No acute fracture. Intramuscular hematoma of the medial aspect of the gastrocnemius measuring 6.5 x 2[address]/Extremity Lower without Contra IMPRESSION: 1. No acute fracture. 2. Intramuscular hematoma of the medial aspect of the gastrocnemius measuring 6.5 x 2.8 x 9.7 cm. Reading Location: [id number]
--- NOTE | 2024-11-18 11:21 | EX.ED.DYSGE1 ---
HPI History of Present Illness Chief Complaint: Lower Extremity Injury Narrative Narrative: Chief complaint and HPI: Right calf tenderness and bruising. History taken by patient, , and medical record. Patient is a 49-year-old male with past medical history of DVT, PE on Lovenox 130 mg twice daily, DM2, HTN who presents for evaluation of right calf pain and ecchymosis. Patient was seen for similar complaint on 11/16. Had a venous duplex ultrasound performed at that time that was negative for DVT however nonvascular hypoechoic structure noted in the right medial calf, seroma versus hematoma. Patient states that the bruising has become more significant with pain which is why he presents. Patient denies any significant injury or trauma. He states previously he had bacteremia in that extremity due to a wound/blister on his foot. Currently denies any fever, chills, wounds. Review of systems: See HPI Medications: As listed on the chart Allergies: As listed on the chart PFSH: Per chart Vital signs: As listed on the chart. Reviewed. Physical exam: Gen: A&O x3, NAD Head: Normocephalic, atraumatic Eyes: No sclera icterus, conjunctiva clear ENT: Moist mucous membranes Neck: Trachea midline, full range of motion CV: Regular rate Resp: Nonlabored respiration GI: Abd soft, non-distended, non-tender, no r/r/g Musc: Right lower extremity with minimal swelling in the right calf compared to the left, right calf has healing ecchymosis as it is more yellow in color, calf is tender to palpation but compartments are soft, femoral/DP/PT pulse +2, strength +5/5 bilaterally although has decreased range of motion secondary to the calf pain, achilles intact without tenderness, no erythema/warmth/cellulitis/wounds, good capillary refill, full range of motion of all joints without erythema/warmth/tenderness Neuro: Alert, oriented, grossly intact, sensation intact Psych: Cooperative, appropriate mood and affect [facility] Medical History Barretts esophagus Fatty liver Thyroid disease Arthritis DVT (deep venous thrombosis) Injury of back Injury of head and neck History of GI bleed Former smoker Shortness of breath on exertion Leg cramps History of edema History of echocardiogram History of stress test Cardiology follow-up encounter History of CHF (congestive heart failure) Rotator cuff arthropathy of left shoulder History of TIA (transient ischemic attack) Diabetes mellitus Hemorrhage of anus and rectum Idiopathic cardiomyopathy Thyroid nodule Essential (primary) hypertension 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 Type 2 diabetes mellitus Medial meniscus tear Diastolic dysfunction with heart failure DVT of leg (deep venous thrombosis) Contusion of left knee, initial encounter Other internal derangements of left knee Pain of left knee after injury Other tear of lateral meniscus, current injury, left knee, subsequent encounter Other tear of medial meniscus, current injury, left knee, subsequent encounter Pulmonary embolism (07/2016) Home Medications ?Medication ?Instructions ?Recorded ?Last Taken ?Type enoxaparin 150 mg/mL subcutaneous 135 mg subcut Q12@0600,1800 12/10/17 11/16/24 History syringe cholecalciferol (vitamin D3) 125 5,000 unit PO DAILY 04/24/18 11/18/24 History mcg (5,000 unit) capsule spironolactone 25 mg tablet 25 mg PO DAILY #90 tabs 09/08/18 11/18/24 Rx empagliflozin 10 mg tablet 10 mg PO DAILY 02/19/22 11/18/24 History (Jardiance) sacubitril 97 mg-valsartan 103 mg 1 tab PO BID 07/06/22 11/18/24 History tablet (Entresto) furosemide 40 mg tablet (Lasix) 40 mg PO TID 04/30/23 11/18/24 History methimazole 5 mg tablet 5 mg PO DAILY 10/24/24 11/18/24 History potassium chloride 20 mEq 20 meq PO BID 10/24/24 11/18/24 History tablet,extended release semaglutide 2 mg/dose (8 mg/3 mL) 2 mg subcut QWEEK 10/24/24 11/12/24 History subcutaneous pen injector (Ozempic) carvedilol 25 mg tablet 50 mg PO BID 11/18/24 11/18/24 History insulin glargine 100 unit/mL (3 40 unit subcut DAILY 11/18/24 11/17/24 History mL) subcutaneous pen (Lantus Solostar U-100 Insulin) pantoprazole 40 mg tablet,delayed 40 mg PO Q12H 11/18/24 11/18/24 History release Allergy/AdvReac Type Severity Reaction Status Date / Time codeine Allergy Other Verified 11/18/24 09:49 metformin Allergy Abd Verified 11/18/24 09:49 cramps/diarrhea perflutren (From [employer]) AdvReac Pain in Verified 11/18/24 09:49 joints Family History Father Hypertension Diabetes Mother Hypertension Diabetes Other Cervical cancer Myocardial infarction Skin cancer Surgical History History of cardiac catheterization History of left heart catheterization (03/04/18) torn cartilage behind knee Partially torn MCL Torn PCL Torn meniscus Social History Smoking Status: Former smoker how long ago did patient quit smokin, 2pks/day second hand exposure: Yes alcohol intake: current alcohol intake frequency: a few times a month substance use type: does not use EXAM Physical Exam Const Vital Signs: 11/18/24 09:49 11/18/24 11:49 11/18/24 13:00 Temperature 97.7 F L Temperature Source Oral Pulse Rate 83 80 81 Respiratory Rate 18 16 18 Blood Pressure 107/75 118/72 Blood Pressure Mean 85 87 Pulse Ox 97 98 Oxygen Delivery Method Room Air Room Air MDM MDM MDM Narrative Medical decision making narrative: 49-year-old male with past medical history of DVT, PE on Lovenox 130 mg twice daily, DM2, HTN who presents for evaluation of right calf pain and ecchymosis. Patient was seen for similar complaint on 11/16. Note and venous duplex reviewed. Venous duplex was negative for DVT but showed nonvascular hyperechoic structure of the right medial calf, concern for seroma versus hematoma. Patient presents due to continued pain and ecchymosis. Denies any injury or trauma. Differential diagnosis includes but is not limited to hematoma, calf muscle tear/contusion, DVT. Suspect less likely occult fracture. Patient has no signs and symptoms of septic arthritis or bacteremia. Although patient's venous duplex ultrasound was negative for DVT, patient is high risk. Will obtain repeat venous duplex ultrasound with CT of the lower extremity without contrast. I did inform the patient as well as his that there is no concern for bacteremia or septic arthritis however they are concerned given patient's previous history of bacteremia. Therefore basic labs and blood culture obtained. I do not think any further workup for bacteremia or septic arthritis is needed as there is no symptoms or physical exam to suggest these. CBC without leukocytosis or anemia. Coagulation panel unremarkable. BMP unremarkable. Venous duplex ultrasound negative for DVT. A nonvascular structure with mixed echogenicity is noted in the right medial calf, measuring 11 cm x 3 cm. This probably represents a hematoma or seroma. No significant change from prior exam. On reevaluation, patient endorsing increased pain and intermittent paresthesias. He has refused pain medicine. Patient and family concerned of compartment syndrome. Clinically patient has minimal swelling in the calf compared to the other. He has sensation to dull and pinprick evaluation. His compartments are soft. Patient is in agreement to trying pain medicine. CT of the lower extremity shows no acute fracture. Patient has intramuscular hematoma of the medial aspect of the gastrocnemius measuring 6.5 x 2.8 x 9.7 cm. On reevaluation, patient states his pain has improved some but is still present. His paresthesias have resolved. Given CT imaging with patient's pain, orthopedic surgery, Dr. Last was contacted and patient was discussed. Although compartment syndrome is low on the differential cannot truly rule this out. Dr. Last agrees that compartment syndrome is not likely however cannot rule out without Monster needle. We do not have this available in our facility. If family is concerned, recommended transferring to another facility. Recommendations was discussed with the patient and family. Given that pain has improved, patient would like to discharge home with strict return precautions. Will give crutches as needed for ambulation however recommended ambulation as tolerated. Will give narcotics. Follow-up with orthopedics. Strict return precautions were given. Patient stable to discharge home. Impression: 1. Hematoma of the medial aspect of the gastrocnemius muscle 2. History of anticoagulation use Lab Data Labs: Laboratory Results - last 24 hr 11/18/24 11:24 WBC 7.3 RBC 4.72 Hgb 14.6 Hct 42.6 MCV 90.3 MCH 30.9 MCHC 34.3 RDW Std Deviation 45.0 H RDW Coeff of [place] 13.5 Plt Count 244 MPV 9.2 Immature Gran % (Auto) 0.400 Neut % (Auto) 67.1 Lymph % (Auto) 23.2 [place] % (Auto) 7.9 Eos % (Auto) 1.1 Baso % (Auto) 0.3 Absolute Neuts (auto) 4.9 Absolute Lymphs (auto) 1.70 Nucleated RBC % 0 PT 12.9 INR 1.0 APTT 26.3 Sodium 137 Potassium 4.8 Chloride 99 Carbon Dioxide 25.6 Anion Gap 12 BUN 12 Creatinine 0.65 L Estim Creat Clear Calc 204.28 Est GFR (MDRD) Non-Af 116 BUN/Creatinine Ratio 18.8 Glucose 197 H Calcium 9.5 Radiography Diagnostic Testing: Clinical Impression(s) from Imaging Studies Lower Extremity CT 11/18/24 10:46 IMPRESSION: 1. No acute fracture. 2. Intramuscular hematoma of the medial aspect of the gastrocnemius measuring 6.5 x 2.8 x 9.7 cm. Reading Location: [facility] Venous Doppler Study 11/18/24 10:46 Interpretation Summary Deep veins of the right lower extremity are patent and compressible segmentally. There is no evidence of right lower extremity deep vein thrombosis. Valvular competence appears intact within the proximal deep venous system on the right . The right great saphenous vein appears patent and compressible segmentally. A non-vascular structure with mixed echogenicity is noted in the right medial calf, measuring 11.66 cm x 3.0 cm. This probably represents a hematoma or seroma. Clinical correlation is advised. There has been no significant change since a prior study on 11/16/24. Ordering Physician: Nicko Robbins Referring Physician: Jose L Houston Performed By: Francy Kraus RVT Discharge Plan Triage Chief Complaint: Lower Extremity Injury ED Provider: Nicko Robbins Dx/Rx/DC Orders Prescriptions: No Action Jardiance 10 mg tablet 10 mg PO DAILY Ozempic 2 mg/dose (8 mg/3 mL) pen injector 2 mg subcut QWEEK potassium chloride 20 mEq tablet extended release 20 meq PO BID enoxaparin 150 MG/ML syringe 135 mg SC Q12@0600,1800 methimazole 5 mg tablet 5 mg PO DAILY cholecalciferol (vitamin D3) 5,000 UNIT capsule 5,000 unit PO DAILY Entresto 97-103 mg tablet 1 tab PO BID furosemide [Lasix] 40 mg tablet 40 mg PO TID Patient Comments: pt. states he has to take 40 mg twice and the other 40 mg is a prn based on his weight carvedilol 25 mg tablet 50 mg PO BID insulin glargine [Lantus Solostar U-100 Insulin] 100 unit/mL (3 mL) insulin pen 40 unit subcut DAILY pantoprazole 40 mg tablet,delayed release (DR/EC) 40 mg PO Q12H spironolactone 25 mg tablet 25 mg PO DAILY Qty: 90 1RF Primary Care Provider: Jose L Houston Referrals: Jose L Houston DO [Primary Care Provider] - Print Language: Colombian
[2024-11-18 11:36] LABS: Absolute Neutrophil Count 4.9 X10^3/uL (2.0-7.7); Basophil# 0.02 X10^3/uL; Basophil% 0.3 % (0-1); Eosinophil# 0.08 X10^3/uL; Eosinophils% 1.1 % (0-5); Hematocrit 42.6 % (40-54); Hemoglobin 14.6 g/dL (13.0-16.5); Lymphocyte % 23.2 % (19-41); Mean Corp Hgb Conc 34.3 g/dL (32-36); Mean Corpuscular Hgb 30.9 pg (27.0-32.0); Mean Corpuscular Volume 90.3 fL (80-94); Mean Platelet Vol. 9.2 fl (6.2-12.0); Monocyte# 0.58 X10^3/uL; Monocyte% 7.9 % (0-10); NRBC Flagged by Analyzer 0 % (0-5); Neutrophil # 4.92 X10^3/uL (2.7-7.7); Neutrophil % 67.1 % (47-70); Platelet Count 244 K/mm3 (150-450); RBC Distribution Width CV 13.5 % (11.6-14.6); Red Blood Count 4.72 M/mm3 (4.6-6.2); White Blood Count 7.3 K/mm3 (4.4-11.0)
[2024-11-18 11:42] LABS: Prothrombin Time (Protime)PT. 12.9 SECONDS (11.7-14.9)
[2024-11-18 11:43] LABS: Partial Thromboplast Time 26.3 Seconds (24.1-36.2)
[2024-11-18 11:49] VITALS: PULSE 80; RESP 16
[2024-11-18 11:57] LABS: Anion Gap 12 (5-15); BUN 12 mg/dL (4-19); BUN/Creat Ratio 18.8 RATIO (10-20); Calcium,Total 9.5 mg/dL (7.6-11.0); Carbon Dioxide 25.6 mmol/L (21.0-32.0); Chloride 99 mmol/L (98-108); Creatinine, Serum 0.65 mg/dL (0.70-1.20); EST Glomerular Filtration Rate 116 (>60); Estimated Creatinine Clearance 204.28 ml/min (50-250); Glucose 197 mg/dL (70-99); Potassium 4.8 mmol/L (3.3-5.1); Sodium Level 137 mmol/L (133-145)
[2024-11-18 13:00] VITALS: BP 118/72; PULSE 81; RESP 18; O2SAT 98
[2024-11-18] MEDS: Morphine 4 MG/ML Syringe IV (13:32)
[2024-11-18] MEDS: Ondansetron 4 MG/2 ML Vial IV (13:32)
[2024-11-18 14:40] VITALS: BP 99/76; PULSE 85; RESP 16; TEMP 36.5; O2SAT 98
== END 2024-11-18 14:48 | disposition home or self-care (01) ==
PROVIDERS: Emergency Provider Surgery; PCP Family Medicine; Visit Provider Surgery
DX: S80.11XA Contusion of right lower leg, initial encounter (principal); I11.0 Hypertensive heart disease with heart failure; I50.42 Chronic combined systolic (congestive) and diastolic (congestive) heart failure; E11.9 Type 2 diabetes mellitus without complications; Z79.4 Long term (current) use of insulin; Z87.891 Personal history of nicotine dependence; Z86.718 Personal history of other venous thrombosis and embolism; Z79.01 Long term (current) use of anticoagulants; Z79.85 Long-term (current) use of injectable non-insulin antidiabetic drugs
CPT/HCPCS: 73700; 80048; 85025; 85610; 85730; 87040; 93971; 96374; 96375; 99283; A4216; J2405

== ENCOUNTER 2025-04-09 06:44 | Day surgery (SDC) | payer OTHER, SELFPAY ==
--- NOTE | 2025-03-14 08:14 | EKG12_ITS ---
Test Reason : PREOP Blood Pressure : */* mmHG Vent. Rate : 71 BPM Atrial Rate : 71 BPM P-R Int : 152 ms QRS Dur : 100 ms QT Int : 386 ms P-R-T Axes : 32 3 10 degrees QTcB Int : 419 ms Normal sinus rhythm Normal ECG Confirmed by Morteza Rachel ([id number]), field map editor KASHIF HOLBROOK ([id number]) on 03/15/2025 5:53:57 AM Also confirmed by Morteza Rachel ([id number]), field map editor KASHIF HOLBROOK ([id number]) on 03/15/2025 5:54:10 AM Referred By: Reynaldo Grant Confirmed By: Morteza Rachel
[2025-03-15 07:48] LABS: Hematocrit 45.3 % (40-54); Hemoglobin 15.4 g/dL (13.0-16.5); Immature Granulocytes Count 0.010 X10^3/uL (0.0-0.0); Mean Corp Hgb Conc 34.0 g/dL (32-36); Mean Corpuscular Volume 90.6 fL (80-94); Mean Platelet Vol. 9.3 fl (6.2-12.0); NRBC Flagged by Analyzer 0 % (0-5); Platelet Count 225 K/mm3 (150-450); RBC Distribution Width CV 14.4 % (11.6-14.6); RBC Distribution Width SD 47.8 fl (35.1-43.9); Red Blood Count 5.00 M/mm3 (4.6-6.2); White Blood Count 5.5 K/mm3 (4.4-11.0)
[2025-03-15 08:43] LABS: Anion Gap 12 (5-15); BUN 16 mg/dL (4-19); BUN/Creat Ratio 20.5 RATIO (10-20); Calcium,Total 9.0 mg/dL (7.6-11.0); Carbon Dioxide 24.2 mmol/L (21.0-32.0); Chloride 101 mmol/L (98-108); Glucose 152 mg/dL (70-99); Potassium 4.9 mmol/L (3.3-5.1)
--- NOTE | 2025-04-02 15:29 | PAT.ANESEVAL ---
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 When Was Last Pacemaker Check QUESTION #4 FULL TEXT: You/Your Family Experience fever (hyperthermia) with Anesthesia Last Oral Intake Last Oral intake: Last Oral Intake NPO since Meds taken in AM with sips of water? Meds patient instructed to take am of surgery PONV PONV - esthetician/skin therapist: PONV - esthetician/skin therapist Female No 04/02/25 12:53 HX of Motion Sickness No 04/02/25 12:53 HX of N/V After Surgery No 04/02/25 12:53 Non-Smoker Yes 04/02/25 12:53 Duration of Surgery greater No 04/02/25 12:53 than 60 minutes Number of Risk Factors 1 04/02/25 12:53 PONV Score Low Risk 04/02/25 12:53 Height & Weight Height & Weight: Anesthesia: Height & Weight Height 6 ft 4 in 11/18/24 09:49 Respiratory Assessment Respiratory Assessment - esthetician/skin therapist: Respiratory Tract Infection Hx - esthetician/skin therapist Hx Respiratory Tract Infection No 04/02/25 12:53 STOP Sleep Apnea STOP Sleep Apnea - esthetician/skin therapist: STOP Sleep Apnea - esthetician/skin therapist Hx Hypertension Yes 04/02/25 12:53 Hx Sleep Apnea Yes 04/02/25 12:53 CPAP Yes 04/02/25 12:53 BIPAP No 04/02/25 12:53 Do you snore loudly (louder No 04/02/25 12:53 than talking or can be heard Do you often feel tired/ No 04/02/25 12:53 fatigued/ sleepy during daytime? Has anyone observed you stop No 04/02/25 12:53 breathing during sleep? STOP Results Positive 04/02/25 12:53 QUESTION #5 FULL TEXT : Do you snore loudly (louder than talking or can be heard through closed doors)? 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 Specify any problems Hx of Preganancy in last 3 N/A 04/02/25 12:53 Months Nurse Filling Out Transfusion NBUCHER 04/02/25 12:53 & Questions: Date: 04/02/25 04/02/25 12:53 Time: 12:54 04/02/25 12:53 Patient unable to answer at this time (ie. confused, unrespo /Reproduction History /Reproductive History - esthetician/skin therapist: /Reproductive Hx- esthetician/skin therapist Hx Now No 04/02/25 12:53 Gestational Age (in weeks): EDC: Hx Hx Para Hx Section SAB No 04/02/25 12:53 PFS Medical History (Updated 04/02/25 @ 12:58 by Cherelle Dozier) Insulin dependent diabetes mellitus GERD (gastroesophageal reflux disease) Barretts esophagus Fatty liver Thyroid disease Arthritis DVT (deep venous thrombosis) Injury of back Injury of head and neck History of GI bleed Former smoker Shortness of breath on exertion Leg cramps History of edema History of echocardiogram History of stress test Cardiology follow-up encounter History of CHF (congestive heart failure) Rotator cuff arthropathy of left shoulder History of TIA (transient ischemic attack) Diabetes mellitus Hemorrhage of anus and rectum Idiopathic cardiomyopathy Thyroid nodule Essential (primary) hypertension 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 Type 2 diabetes mellitus Medial meniscus tear Diastolic dysfunction with heart failure DVT of leg (deep venous thrombosis) Contusion of left knee, initial encounter Other internal derangements of left knee Pain of left knee after injury Other tear of lateral meniscus, current injury, left knee, subsequent encounter Other tear of medial meniscus, current injury, left knee, subsequent encounter Pulmonary embolism (07/2016) Home Medications Medication Instructions Recorded Last Taken Type enoxaparin 150 mg/mL subcutaneous 135 mg subcut Q12@0600,1800 12/10/17 11/16/24 History syringe cholecalciferol (vitamin D3) 125 5,000 unit PO DAILY 04/24/18 11/18/24 History mcg (5,000 unit) capsule spironolactone 25 mg tablet 25 mg PO DAILY #90 tabs 09/08/18 11/18/24 Rx empagliflozin 10 mg tablet 10 mg PO DAILY 02/19/22 11/18/24 History (Jardiance) sacubitril 97 mg-valsartan 103 mg 1 tab PO BID 07/06/22 11/18/24 History tablet (Entresto) furosemide 40 mg tablet (Lasix) 40 mg PO TID 04/30/23 11/18/24 History methimazole 5 mg tablet 5 mg PO DAILY 10/24/24 11/18/24 History potassium chloride 20 mEq 20 meq PO BID 10/24/24 11/18/24 History tablet,extended release carvedilol 25 mg tablet 50 mg PO BID 11/18/24 11/18/24 History insulin glargine 100 unit/mL (3 20 unit subcut DAILY 11/18/24 11/17/24 History mL) subcutaneous pen (Lantus Solostar U-100 Insulin) pantoprazole 40 mg tablet,delayed 40 mg PO Q12H 11/18/24 11/18/24 History release tirzepatide 10 mg/0.5 mL 10 mg subcut GUPTA 04/02/25 Unknown History subcutaneous pen injector (Mounjaro) Allergy/AdvReac Type Severity Reaction Status Date / Time codeine Allergy Other Verified 04/02/25 10:22 metformin Allergy Abd Verified 04/02/25 10:22 cramps/diarrhea perflutren (From [facility]) AdvReac Pain in Verified 04/02/25 10:22 joints Family History Father Hypertension Diabetes Mother Hypertension Diabetes Other Cervical cancer Myocardial infarction Skin cancer Surgical History History of cardiac catheterization History of left heart catheterization (03/04/18) torn cartilage behind knee Partially torn MCL Torn PCL Torn meniscus Social History Smoking Status: Former smoker how long ago did patient quit smokin, 2pks/day second hand exposure: Yes alcohol intake: current alcohol intake frequency: a few times a month substance use type: does not use Audit: Pertinent Findings Pertinent Findings EKG Perinent findings: 03/14/2025. Normal sinus rhythm 71 bpm. Normal EKG. Echo (EF%) pertinent findings: 12/16/2018. Normal size EF 45% mild global hypokinesis of left ventricle compared to previous echo it is mildly improved. Consult pertinent findings: Cardiology 12/01/2018. Idiopathic cardiomyopathy. Repeat echocardiogram prior to next visit. No changes otherwise hypertension. No changes. Recommendation Anesthesia Recommendation Anesthesia recommendation: OPTIMIZED for anesthesia
[2025-04-09] VITALS (9 sets, daily range): BP systolic 107–128; BP diastolic 66–78; PULSE 18–74; RESP 16–18; TEMP 36.3–36.6; O2SAT 94–98; BMI 35.0
--- OUTSIDE RECORDS SUMMARY | 2025-04-09 06:56 | XMS RPT_ITS | CCD ---
Author Organization [facility] Care Team Providers Care Enamel Finisher Name Role Phone Jeniffer White DO Primary Care Provider Fei SARAVIA, Fredy Qiu Primary Care Provider Fei SARAVIA, Fredy Qiu Primary Care Provider [phone] Jeniffer White DO Primary Care Provider Dr. Jeniffer White Primary Care Provider [phone] Dr. Jeniffer White Referring Provider Jostin MONGE, FORESTRY AID-C Ivy Mcallister Attending Provider [phone] Akila CUMMINGS, ZOILA Mcallister Attending Provider Dr. Yung Tate Attending Provider [phone] Dr. Yung Tate Referring Provider [phone] Dr. Yung Tate Other Provider [phone] Dr. Jeniffer White Primary Care Provider [phone] Dr. Yung Tate Attending Provider [phone] Dr. Yung Tate Referring Provider [phone] Dr. Yung Tate Other Provider [phone] Dr. Jeniffer White Referring Provider Jostin MONGE, FORESTRY AID-C Ivy Mcallister Attending Provider [phone] Jeniffer White DO Primary Care Provider Dr. Jeniffer White DO Primary Care Provider [facility], Dr. Domingo Attending Provider Cindy GRUBER, Dr. Domingo Referring Provider REUBEN BOYCE Other Provider Lilli DO, Dr. Mishra Referring Provider Lilli DO, Dr. Mishra Emergency Provider [phone] Rosendo DO, Dr. Maharaj Emergency Provider FREDY ENAMORADO Primary Care Unavailable JUANI BORDEN Attending Unavailable BERTA SWAIN Consulting Unavailable Fredy Enamorado MD Primary Care Provider [facility], Jeniffer Sidhu Primary Care Provider ANSHUL HERNANDEZ Attending Unavailable ANSHUL HERNANDEZ Referring Unavailable CINDY, JENIFFER A Primary Care Unavailable CINDY, JENIFFER A Referring Unavailable ANSHUL HERNANDEZ Attending Unavailable CINDY, JENIFFER A Primary Care Unavailable ANSHUL HERNANDEZ Attending Unavailable ANSHUL HERNANDEZ Referring Unavailable CINDY, JENIFFER A Primary Care Unavailable TULIO CORNELIUS Attending Unavailable ANSHUL HERNANDEZ Referring Unavailable CINDY, JENIFFER A Primary Care Unavailable FREDY ENAMORADO Primary Care Unavailable GUS CADENA Attending Unavailable Cindy, Jeniffer Primary Care Unavailable Nicko Robbins Attending Unavailabl e Cindy, Jeniffer Primary Care Unavailable Prnicess Garcia Attending Unavailable Cindy, Jeniffer Referring Unavailable SpittleReynaldo Referring Unavailable Cindy, Jeniffer Primary Care Unavailable SpittleReynaldo Attending Unavailable Cindy, Jeniffer Primary Care Unavailable Cindy, Jeniffer Attending Unavailable Cindy, Jeniffer Primary Care Unavailable SpittReynaldo bush Referring Unavailable SpittReynaldo bush Attending Unavailable Cindy, Jeniffer Referring Unavailable SIRIA JOLLY Consulting Unavailable Cindy, Jeniffer Primary Care Unavailable Cindy, Jeniffer Attending Unavailable Cindy, Jeniffer Referring Unavailable Cindy, Jeniffer Primary Care Unavailable Cindy, Jeniffer Attending Unavailable SIRIA JOLLY Attending Unavailable SIRIA JOLLY Referring Unavailable Cindy, Jeniffer Primary Care Unavailable Cindy, Jeniffer Primary Care Unavailable Tad Reeder Attending Unavailable Tad Reeder Referring Unavailable Allergies Allergy Classification Reported Allergen(s) Allergy Type Date of Onset Reaction(s) Facility (20 sources) Codeine; Translations: [CODEINE] Drug Allergy 6 Hives [facility] (20 sources) Perflutren Lipid Microsphere Propensity to adverse reactions to drug 9 [facility] (16 sources) Chocolate; Translations: [CHOCOLATE] Propensity to adverse reactions 6 GI Upset [facility] Work Phone: (20 sources) Perflutren; Translations: [PERFLUTREN LIPID MICROSPHERES] Drug Allergy 7 Other: See Comments [facility] (20 sources) metFORMIN Drug Allergy 2 Diarrhea [facility] (1 source) Codeine Drug Allergy 5 [facility] (1 source) metFORMIN Drug Allergy 5 [facility] (1 source) Perflutren Drug Allergy 5 [facility] Medications Current Medications Medication Drug Class(es) Dates Sig (Normalized) Sig (Original) acetaminophen 325 mg / HYDROcodone bitartrate 5 mg oral tablet (5 sources) Opioid Agonist Start: 08-01-2021 take 1 tablet by mouth every six hours Hydrocodone-Acetam inophen Active 1 TABLET PO EVERY 6 HOURS 10 3 August 01, 2021 acetaminophen 325 mg / oxyCODONE hydrochloride 5 mg oral tablet (1 source) Opioid Agonist Start: 11-18-2024 take 1 tablet by mouth every six hours as needed for pain Oxycodone-Acetamin ophen (Percocet) 5-325 mg tablet Active 1 {tbl} PO EVERY 6 HOURS as needed for pain 12 3 November 18, 2024 carvedilol 25 mg oral tablet (20 sources) alpha-Adrenergic Harmna, beta-Adrenergic Harman Start: 07-06-2022 End: 11-18-2024 take 4 tablets by mouth twice daily at mealtime Carvedilol 12.5 mg tablet Discontinued 50 mg PO TWICE A DAY July 06, 2022 9:39am November 18, 2024 9:51am give with food (meal/snack) Start: 07-06-2022 take 50 mg by mouth twice daily at mealtime Carvedilol Active 50 MG PO TWICE A DAY July 06, 2022 8:39am give with food (meal/snack) Start: 05-30-2021 take 2 tablets by mo uth twice daily at mealtime carveDILOL 25 MG tablet TAKE 2 TABLETS BY MOUTH TWICE A DAY WITH MEALS 360 tablet 3 06/20/2024 Active Start: 04-28-2018 End: 07-06-2022 take 1 tablet by mouth twice daily at mealtime Carvedilol 12.5 mg tablet Discontinued 12.5 mg PO TWICE A DAY 180 April 28, 2018 1:00am July 06, 2022 9:39am give with food (meal/snack) Start: 03-28-2018 End: 04-28-2018 take 1 tablet by mouth twice daily at mealtime Carvedilol 6.25 mg tablet Discontinued 6.25 mg PO TWICE A DAY 60 March 28, 2018 12:00am April 28, 2018 12:54pm give with food (meal/snack) Start: 03-04-2018 End: 03-28-2018 take 1 tablet by mouth twice daily at mealtime Carvedilol 3.125 mg tablet Discontinued 3.125 mg PO TWICE A DAY 60 March 04, 2018 12:00am March 28, 2018 5:13pm give with food (meal/snack) Comment on above: Take two tablets by mouth twice daily. cholecalciferol 0.125 mg oral capsule (20 sources) Vitamin D Start: 04-24-20 take 1 capsule by mouth once daily Cholecalciferol (Vitamin D3) 5,000 UNIT capsule Active 5000 U PO DAILY April 24, 2018 12:00am Vitamin D3 2000 units Cap Take 5,000 Units by mouth daily. Active cholecalciferol, vitamin D3, (VITAMIN D3 ORAL) (6 sources) take 5000 [IU] by mouth once daily cholecalciferol, vitamin D3, (VITAMIN D3 ORAL) Take 5,000 Units by mouth once daily. Active take 5000 [IU] by mouth once andrew ly cholecalciferol, vitamin D3, (VITAMIN D3 ORAL) Take 5,000 Units by mouth once daily. 0 Active Comment on above: Take 5,000 Units by mouth once daily. 0.5 ml dulaglutide 3 mg/ml auto-injector (20 sources) GLP-1 Receptor Agonist Start: 05-04-2022 Dulaglutide (Trulicity) 1.5 mg/0.5 mL pen injector Active 3 MG SC EVERY WEEK May 04, 2022 3:25pm Start: 12-01-2018 End: 05-04-2022 Dulaglutide (Trulicity) 1.5 mg/0.5 mL pen injector Discontinued 1.5 mg SC EVERY WEEK December 01, 2018 12:00am May 04, 2022 4:26pm Start: 12-10-2017 End: 08-09-2018 Dulaglutide 1.5 MG/0.5 ML pe n injector Discontinued 1.5 mg SQ GUPTA December 10, 2017 12:00am August 09, 2018 12:50pm End: 09-11-2022 inject 3 mg by subcutaneous injection every week Dulaglutide 1.5 MG/0.5ML Solution Pen-injector injection Inject 3 mg under the skin once a week. 0 09/11/2022 Discontinued Comment on above: Inject 1.5 mg subcut aneously one time a week. empagliflozin 10 mg oral tablet (20 sources) Sodium-Glucose Cotransporter 2 Inhibitor Start: 02-20-20 take 1 tablet by mouth once daily Empagliflozin (Jardiance) 10 mg tablet Active 10 mg PO DAILY February 19, 2022 12:00am Comment on above: Take 10 mg by mouth once daily. 1 ml enoxaparin sodium 150 mg/ml prefilled syringe (20 sources) Low Molecular Weight Heparin Start: 12-11-19 Enoxaparin 150 MG/ML syringe Active 135 mg SC Q12@0600,1800 December 10, 2017 12:00am Start: 12-10-2017 Enoxaparin Act monet 135 MG SC Q12@0600,1800 December 09, 2017 11:00pm inject 135 mg by sub cutaneous injection every twelve hours enoxaparin sodium (LOVENOX SUBCUTANEOUS) Inject 135 mg subcutaneously every 12 hours. Active inject 135 mg by sub cutaneous injection every twelve hours Enoxaparin Sodium (LOVENOX SC) Inject 135 mg under the skin every 12 hours. Active inject 135 mg by sub cutaneous injection every twelve hours enoxaparin sodium (LOVENOX SUBCUTANEOUS) Inject 135 mg subcutaneously every 12 hours. 0 Active inject 135 mg by sub cutaneous injection every twelve hours Enoxaparin Sodium (LOVENOX SC) Inject 135 mg under the skin every 12 hours. 0 Active Comment on above: Inject 135 mg subcut aneously every 12 hours. 12 hr fexofenadine hydrochloride 60 mg / pseudoephedrine hydrochloride 120 mg extended release oral tablet (6 sources) alpha-Adrenergic Agonist, Histamine-1 Receptor Antagonist Start: 08-12-19 10 p-ephed hcl/fexofenadine hcl(MICHELLE-D 12 HOUR 60 MG-120 MG TAB) Indications: Allergic rhinitis, cause unspecified Take one(1) tablet twice daily as need for allergies 60 3 08/12/2009 Active Comment on above: Take one(1) tablet t wice daily as need for allergies fluticasone propionate 0.05 mg/actuat metered dose nasal spray (6 sources) Corticosteroid Start: 08-12-19 10 take 1 puff(s) nasal route once fluticasone propionate(FLONASE 50 MCG/ACTUATION NASAL SPRAY) Indications: Allergic rhinitis, cause unspecified One puff per nostril before lying down for bed. 1 INH 1 08/12/2009 Active Comment on above: One puff per nostril before lying down for bed. furosemide 40 mg oral tablet (20 sources) Loop Diuretic Start: 04-30-20 23 take 1 tablet by mouth three times daily as needed furOSEmide 40 MG tablet TAKE 1 TABLET BY MOUTH THREE TIMES A DAY NEEDED 270 tablet 3 06/20/2024 Active Start: 11-13-2022 take 1 tablet by nadya th three times daily as needed furOSEmide 40 MG tablet Take 1 tablet by mouth 3 times daily as needed. 270 tablet 3 11/13/2022 Active Start: 11-14-2021 End: 02-27-2022 take 1 tablet by mouth once daily as needed furOSEmide 40 MG tablet Take 1 tab by mouth 2times daily. Can take an extra 20 mg (1/2 tab) by mouth daily as needed 225 tablet 0 11/14/2021 02/27/2022 Discontinued Start: 08-09-2018 End: 04-30-2023 take 1 tablet by mouth twice daily Furosemide (Lasix) 40 mg tablet Discontinued 40 mg PO TWICE A DAY August 09, 2018 1:00am April 30, 2023 6:58pm Start: 05-23-2018 End: 08-09-2018 take 1 tablet by mouth once daily Furosemide 40 mg tablet Discontinued 40 mg PO DAILY June 10, 2018 2:51pm August 09, 2018 12:59pm Comment on above: Take 40 mg by mouth twice daily as needed. Glucosamine (7 sources) Glucosamine HCl (GLUCOSAMINE PO) Take by mouth. Active Glucosamine HCl (GLUCOSAMINE PO) Take by mouth. 0 Active 3 ml insulin glargine 100 unt/ml pen injector (6 sources) Insulin Analog Start: 11-18-2024 Insulin Glargi ne (Lantus Solostar U-100 Insulin) 100 unit/mL (3 mL) insulin pen Active 40 U SC DAILY November 18, 2024 12:00am inject 40 [IU] by gupta bcutaneous injection once daily in the morning Insulin glargine 100 UNIT/ML vial Inject 40 Units under the skin daily every morning. Active End: 04-23-2023 inject 80 [IU] by subcutaneous injection once daily Insulin Glargine (LANTUS SC) Inject under the skin. 80 unit daily 0 04/23/2023 Discontinued inject 80 [IU] by gupta bcutaneous injection once daily Insulin Glargine (LANTUS SC) Inject under the skin. 80 unit daily 0 Active lisinopril 10 mg oral tablet (20 sources) Angiotensin Converting Enzyme Inhibitor Start: 02-19-2022 take 10 mg by mouth once daily Lisinopril Active 10 MG PO DAILY February 18, 2022 11:00pm Start: 03-04-2018 End: 12-01-2018 take 1 tablet by mouth once daily Lisinopril 10 mg tablet Discontinued 10 mg PO DAILY July 12, 2018 9:36am December 01, 2018 12:03pm Start: 12-10-2017 End: 03-04-2018 take 1 tablet by mouth once daily Lisinopril 20 MG tablet Discontinued 20 mg PO DAILY December 10, 2017 12:00am March 04, 2018 10:14am Magnesium (2 sources) Start: 07-06-2022 take 400 mg by mouth once daily Magnesium Active 400 MG PO DAILY July 06, 2022 12:00am magnesium oxide 400 mg oral tablet (20 sources) End: 09-11-2022 take 1 tablet by mouth once daily magnesium oxide (MAG-OX) 400 mg (241.3 mg magnesium) tablet Take 400 mg by mouth once daily. Active Comment on above: Take 400 mg by mouth once daily. methIMAzole 5 mg oral tablet (20 sources) Thyroid Hormone Synthesis Inhibitor Start: 10-24-2024 take 1 tablet by mouth once daily Methimazole 5 mg tablet Active 5 mg PO DAILY October 24, 2024 2:41pm Start: 12-10-2017 End: 10-24-2024 take 7.5 mg by mouth once daily Methimazole 5 MG tablet Discontinued 7.5 mg PO DAILY December 10, 2017 12:00am October 24, 2024 2:44pm Start: 12-10-2017 take 7.5 mg by mouth once daily Methimazole Active 7.5 MG PO DAILY December 09, 2017 11:00pm metHIMazole (TAP AZOLE) 5 mg tablet Indications: Mediastinal lymphadenopathy , Splenomegaly Take 7 mg by mouth once daily. Active take 7.5 mg by mouth once daily METHIMAZOLE PO Take 7.5 mg by mouth daily. 0 Active Comment on above: Take 7 mg by mouth o nce daily. Mounjaro 15 MG/0.5ML Solution Pen-injector (2 sources) Start: 04-14-2023 Mounjaro 15 MG/0.5ML Solution Pen-injector Multivitamin preparation (14 sources) Start: 04-24-2018 Multivitamin Active 1 EACH PO DAILY April 24, 2018 5:42pm Start: 04-24-2018 Multivitamin A ctive 1 EACH PO DAILY April 23, 2018 11:00pm Start: 04-24-2018 Multivitamin A ctive 1 EACH PO DAILY April 24, 2018 12:00am omega-3 fatty acids (FISH OI L CONCENTRATE) 1,000 mg cap (6 sources) take 1 capsule by mo uth once daily omega-3 fatty acids (FISH OIL CONCENTRATE) 1,000 mg cap Take 2 g by mouth once daily. Active take 1 capsule by mouth once andrew ly omega-3 fatty acids (FISH OIL CONCENTRATE) 1,000 mg cap Take 2 g by mouth once daily. 0 Active Comment on above: Take 2 g by mouth on ce daily. ondansetron 4 mg disintegrating oral tablet (8 sources) Serotonin-3 Receptor Antagonist Start: take 1 tablet by mouth every eight hours as needed for nausea Ondansetron 4 mg tablet,disintegrati ng Active 4 mg PO EVERY 8 HOURS NEEDED as needed for Nausea November 18, 2024 12:00am Start: 10-15-2021 End: 02-20-2022 take 1 tablet by mouth every eight hours as needed for nausea ondansetron 4 MG tablet Indications: S/P shoulder surgery Take 1 tablet by mouth every 8 hours as needed for Nausea / Vomiting. 20 tablet 0 10/15/2021 02/20/2022 Discontinued Start: 10-15-2021 End: 10-15-2021 ondansetron 4mg/2ml (ZOFRAN) injection 4 mg Ozempic, 2 MG/DOSE, 8 MG/3ML Solution Pen-injector (5 sources) Start: 09-20-2023 Ozempic, 2 MG/ DOSE, 8 MG/3ML Solution Pen-injector 09/20/2023 Active pantoprazole 40 mg delayed release oral tablet (20 sources) Proton Pump Inhibitor Start: 11-18-2024 take 1 tablet by mouth every twelve hours Pantoprazole 40 mg tablet,delayed release (DR/EC) Active 40 mg PO Q12H November 18, 2024 12:00am Start: 09-18-2022 End: 11-18-2024 take 1 tablet by mouth once daily in the morning Pantoprazole 40 mg tablet,delayed release (DR/EC) Discontinued 40 mg PO EVERY MORNING 90 September 18, 2022 7:35am November 18, 2024 10:35am Start: 07-22-2022 End: 09-18-2022 take 1 tablet by mouth twice daily Pantoprazole 40 mg tablet,delayed release (DR/EC) Discontinued 40 mg PO TWICE A DAY 120 July 22, 2022 1:00am September 18, 2022 7:35am take 40 mg by mouth twice daily PANTOPRAZOLE SODIUM PO Take by mouth. 40mg BID Active potassium chloride 20 meq extended release oral tablet (8 sources) Start: 10-24-2024 take 1 tablet by mouth twice daily Potassium Chloride 20 mEq tablet extended release Active 20 meq PO TWICE A DAY October 24, 2024 12:00am sacubitril 97 mg / valsartan 103 mg oral tablet (20 sources) Angiotensin 2 Receptor Harman Start: 01-08-2025 take 1 tablet by mouth twice daily Entresto 97-103 MG tablet TAKE 1 TABLET BY MOUTH TWICE A DAY 180 tablet 1 01/08/2025 Active Start: 07-06-2022 Sacubitril-Elise sartan (Entresto) 97-103 mg tablet Active 1 {tbl} PO TWICE A DAY July 06, 2022 1:00am Start: 12-30-2020 End: 07-01-2022 take 1 tablet by mouth twice daily sacubitril-valsartan 97-103 MG tablet Take 1 tablet by mouth 2 times daily. 60 tablet 11 07/01/2022 Active Start: 12-01-2018 take 1 tablet by nadya th twice daily Sacubitril-Valsartan (Entresto) 24-26 mg tablet Active 1 TABLET PO TWICE A DAY 60 November 30, 2018 11:00pm Comment on above: Take 1 tablet by nadya th twice daily. semaglutide 7 mg oral tablet (2 sources) Start: 07-06-19 23 take 1 tablet by mouth once daily Semaglutide (Rybelsus) 7 mg tablet Active 7 MG PO DAILY July 06, 2022 12:00am Semaglutide (Ozempic) 2 mg/dose (8 mg/3 mL) pen injector (3 sources) Start: 10-25-19 25 Semaglutide (Ozempic) 2 mg/dose (8 mg/3 mL) pen injector Active 2 mg SC EVERY WEEK October 24, 2024 12:00am spironolactone 25 mg oral tablet (20 sources) Aldosterone Antagonist Start: 09-09-19 19 take 1 tablet by mouth once daily Spironolactone 25 MG tablet TAKE 1 TABLET BY MOUTH EVERY DAY 90 tablet 3 06/20/2024 Active Comment on above: Take 25 mg by mouth once daily. THERAPEUTIC MULTIVITAMIN TAB (6 sources) Start: 08-30-19 20 take 1 tablet by mouth once daily THERAPEUTIC MULTIVITAMIN TAB Indications: Nausea and vomiting , Diarrhea , Esophageal reflux Take 1 tablet by mouth once daily. 0 0 08/30/2019 Active Comment on above: Take 1 tablet by nadya th once daily. Tirzepatide (Mounjaro) 10 MG/0.5ML Solution Auto-injector (2 sources) Tirzepatide (Nadya njaro) 10 MG/0.5ML Solution Auto-injector Inject 0.5 mL under the skin every 7 days. Active Completed/Discontinued Medications Medication Drug Class(es) Dates [...] 10-15-2021 End: 10-15-2021 lactated ringers IV solution citalopram 20 mg oral tablet (20 sources) Serotonin Reuptake Inhibitor Start: 12-01-2018 End: 04-30-2023 take 1 tablet by mouth once daily Citalopram (Celexa) 20 mg tablet Discontinued 20 mg PO DAILY 60 December 01, 2018 12:00am April 30, 2023 6:54pm Comment on above: Take 20 mg by mouth once daily. docusate sodium 100 mg oral capsule (6 sources) Start: 10-15-2021 End: 02-20-2022 take 1 capsule by mouth twice daily as needed docusate 100 MG capsule Indications: S/P shoulder surgery Take 1 capsule by mouth 2 times daily as needed. 20 capsule 0 10/15/2021 02/20/2022 Discontinued gabapentin 100 mg oral capsule (6 sources) Anti-epileptic Agent Start: 10-15-2021 End: 02-20-2022 take 1 capsule by mouth three times daily for pain gabapentin 100 MG capsule Indications: S/P shoulder surgery Take 1 capsule by mouth 3 times daily for 10 days. This medication is used for acute post-operative pain 30 capsule 0 10/15/2021 02/20/2022 Discontinued [id number]-Cz aluron-MSM (GLUCOSAMINE CHONDROITIN JOINT PO) (12 sources) End: 09-11-2022 Jopenz-Wthjkxqvl-R yaluron-MSM (GLUCOSAMINE CHONDROITIN JOINT PO) Take by mouth daily. 0 09/11/2022 Discontinued Glucos-Chondroit -Hyaluron-MSM (GLUCOSAMINE CHONDROITIN JOINT PO) Take by mouth daily. 0 Active 1 ml hydrALAZINE hydrochloride 20 mg/ml injection (1 source) Arteriolar Vasodilator Start: 10-15-2021 End: 10-15-2021 hydrALAZINE (APRESOLINE) injection 10 mg HYDROmorphone (DILAUDID) injection 0.2 mg (1 source) Start: 10-15-2021 End: 10-15-2021 HYDROmorphone (DILAUDID) injection 0.2 mg 3 ml insulin lispro 100 unt/ml pen injector (19 sources) Insulin Analog Start: 09-10-2022 End: 04-23-2023 HumaLOG KwikPen 100 UNIT/ML Solution Pen-injector Start: 12-10-2017 End: 04-28-2018 Insulin Lispro 100 UNIT/ML s olution Discontinued 0 U SQ TWICE A DAY December 10, 2017 12:00am April 28, 2018 12:35pm Start: 12-10-2017 End: 04-28-2018 Insulin Lispro Discontinued 0 UNIT SQ TWICE A DAY December 09, 2017 11:00pm April 28, 2018 11:35am insulin lispro (HumaLOG) injection 4 Units (2 sources) Start: 10-15-2021 End: 10-15-2021 insulin lispro (HumaLOG) injection 4 Units Start: 10-15-2021 End: 10-15-2021 insulin lispro (HumaLOG) inj ection 4 Units insulin lispro (HumaLOG) injection 6 Units (1 source) Start: 10-15-2021 End: 10-15-2021 insulin lispro (HumaLOG) injection 6 Units labetalol hydrochloride 5 mg/ml injectable solution (1 source) beta-Adrenergic Harman Start: 10-15-2021 End: 10-15-2021 labetalol (NORMODYNE) injection 5 mg 3 ml liraglutide 6 mg/ml pen injector (13 sources) GLP-1 Receptor Agonist Start: 08-06-2022 End: 04-30-2023 Liraglutide (Victoza 2-Ben) 0.6 mg/0.1 mL (18 mg/3 mL) Pen Injector Discontinued 1.8 mg SC DAILY August 06, 2022 1:00am April 30, 2023 6:56pm End: 04-23-2023 inject 1.8 mg by subcutaneous injection once daily Liraglutide (VICTOZA SC) Inject under the skin. 1.8mg daily 0 04/23/2023 Discontinued inject 1.8 mg by sub cutaneous injection once daily Liraglutide (VICTOZA SC) Inject under the skin. 1.8mg daily 0 Active metFORMIN hydrochloride 1000 mg oral tablet (20 sources) Biguanide Start: 08-09-2018 End: 02-19-2022 take 1 tablet by mouth twice daily Metformin 1,000 mg tablet Discontinued 1000 mg PO TWICE A DAY August 09, 2018 12:49pm February 19, 2022 3:33pm Start: 04-28-2018 End: 08-09-2018 Metformin 1,000 mg tablet Discontinued 500 mg PO THREE TIMES A DAY April 28, 2018 12:35pm August 09, 2018 12:50pm Start: 04-28-2018 End: 08-09-2018 take 500 mg by mouth three times daily Metformin Discontinued 500 MG PO THREE TIMES A DAY April 28, 2018 11:35am August 09, 2018 11:50am Start: 02-14-2018 End: 04-28-2018 Metformin 1,000 mg tablet Discontinued 500 mg PO TWICE DAILY WITH MEALS February 14, 2018 4:04pm April 28, 2018 12:36pm Start: 02-14-2018 End: 04-28-2018 take 500 mg by mouth twice daily at mealtime Metformin Discontinued 500 MG PO TWICE DAILY WITH MEALS February 14, 2018 3:04pm April 28, 2018 11:36am Start: 12-10-2017 End: 02-14-2018 take 1 tablet by mouth twice daily at mealtime Metformin 1,000 MG tablet Discontinued 1000 mg PO TWICE DAILY WITH MEALS December 10, 2017 12:00am February 14, 2018 4:07pm Multiple Vitamins-Minerals (MULTIVITAMIN ADULT PO) (16 sources) End: 09-11-2022 take 1 tablet by mouth once daily Multiple Vitamins-Minerals (MULTIVITAMIN ADULT PO) Take 1 tablet by mouth daily. 0 09/11/2022 Discontinued take 1 tablet by mouth once mac y Multiple Vitamins-Minerals (MULTIVITAMIN ADULT PO) Take 1 tablet by mouth daily. 0 Active Multivitamin 1 EACH tablet (3 sources) Start: 04-24-2018 End: 11-18-2024 Multivitamin 1 EACH tablet Discontinued 1 NMA PO DAILY April 24, 2018 12:00am November 18, 2024 10:32am Start: 04-24-2018 Multivitamin 1 EACH tablet Active 1 NMA PO DAILY April 24, 2018 12:00am [place]-3 Fatty Acids (14 sources) Start: 04-24-2018 End: 04-28-2018 take 1000 mg by mouth once daily [place]-3 Fatty Acids Discontinued 1000 MG PO DAILY April 24, 2018 5:42pm April 28, 2018 12:36pm Start: 04-24-2018 End: 04-28-2018 take 1000 mg by mouth once daily [place]-3 Fatty Acids Discontinued 1000 MG PO DAILY April 23, 2018 11:00pm April 28, 2018 11:36am Start: 04-24-2018 End: 04-28-2018 take 1000 mg by mouth once daily [place]-3 Fatty Acids Discontinued 1000 MG PO DAILY April 24, 2018 12:00am April 28, 2018 12:36pm [place]-3 Fatty Acids 1,000 MG capsule (3 sources) Start: 04-24-2018 End: 04-28-2018 take 1 capsule by mouth once daily [place]-3 Fatty Acids 1,000 MG capsule Discontinued 1000 mg PO DAILY April 24, 2018 12:00am April 28, 2018 12:36pm oseltamivir 75 mg oral capsule (17 sources) Neuraminidase Inhibitor Start: 05-19-2018 End: 05-24-2018 take 1 capsule by mouth twice daily Oseltamivir (Tamiflu) 75 mg capsule Discontinued 75 mg PO TWICE A DAY 10 May 19, 2018 1:00am May 23, 2018 1:00am May 24, 2018 1:07am oxyCODONE hydrochloride 5 mg oral tablet (7 sources) Opioid Agonist Start: 10-15-2021 End: 02-20-2022 take 1-2 tablets by mouth every four to six hours as needed for pain oxyCODONE 5 MG tablet Indications: S/P shoulder surgery Take 1-2 tab by mouth every 4-6 hours as needed for post-op pain 50 tablet 0 10/15/2021 02/20/2022 Discontinued Start: 10-15-2021 End: 10-15-2021 take 1 tablet by mouth every four hours as needed oxyCODONE (ROXICODONE) tablet 5 mg predniSONE 20 mg oral tablet (17 sources) Start: 03-10-2020 End: 05-04-2022 take 3 tablets by mouth once daily Prednisone 20 mg tablet Discontinued 20 mg PO DAILY March 10, 2020 12:00am May 04, 2022 4:43pm Tapering Dose 60mg x 3 days 40mg x 3 days 20mg x 3 days Start: 03-10-2020 End: 05-04-2022 take 60 mg by mouth once daily Prednisone Discontinued 20 MG PO DAILY March 09, 2020 11:00pm May 04, 2022 3:43pm Tapering Dose 60mg x 3 days 40mg x 3 days 20mg x 3 days Probiotic Product (PROBIOTIC ADVANCED PO) (16 sources) End: 09-11-2022 Probiotic Product (PROBIOTIC ADVANCED PO) Take by mouth as needed. 0 09/11/2022 Discontinued Probiotic Produc t (PROBIOTIC ADVANCED PO) Take by mouth as needed. 0 Active Probiotic Produc t (PROBIOTIC ADVANCED PO) Take by mouth daily. 0 Active rivaroxaban 15 mg oral tablet (20 sources) Factor Xa Inhibitor Start: 06-20-2016 End: 07-21-2017 Rivaroxaban 15 MG tablet Discontinued 20 mg PO DAILY June 20, 2016 4:27pm July 21, 2017 8:02am Start: 06-20-2016 End: 07-21-2017 take 20 mg by mouth once daily Rivaroxaban Discontinue d 20 MG PO DAILY June 20, 2016 3:27pm July 21, 2017 7:02am Start: 04-10-2016 End: 06-20-2016 take 1 tablet by mouth twice daily Rivaroxaban (Xarelto) 15 MG tablet Discontinued 15 mg PO TWICE A DAY April 10, 2016 12:00am June 20, 2016 4:27pm sulfamethoxazole 800 mg / trimethoprim 160 mg oral tablet (6 sources) Dihydrofolate Reductase Inhibitor Antibacterial, Sulfonamide Antimicrobial Start: 04-30-2023 End: 11-18-2024 Sulfamethoxazole-Trimethopri m (Bactrim Ds) 800-160 mg tablet Discontinued 1 {tbl} PO TWICE A DAY April 30, 2023 1:00am November 18, 2024 10:33am Tirzepatide (Tirzepatide 15 Mg/0.5 Ml Subcutaneous Pen Injector) 15 mg/0.5 mL pen injector (6 sources) Start: 04-30-2023 End: 10-24-2024 Tirzepatide (Tirzepatide 15 Mg/0.5 Ml Subcutaneous Pen Injector) 15 mg/0.5 mL pen injector Discontinued 15 mg SC .weekly April 30, 2023 1:00am October 24, 2024 2:42pm Start: 04-30-2023 Tirzepatide (T irzepatide 15 Mg/0.5 Ml Subcutaneous Pen Injector) 15 mg/0.5 mL pen injector Active 15 MG SC .weekly April 30, 2023 12:00am traMADol hydrochloride 50 mg oral tablet (17 sources) Opioid Agonist Start: 04-11-2016 End: 04-13-2016 take 50-100 mg by mouth every eight hours as needed for pain Tramadol 50 MG tablet Discontinued 50 - 100 mg PO EVERY 8 HOURS NEEDED as needed for Pain April 11, 2016 12:00am April 13, 2016 4:24pm triamcinolone acetonide 1 mg/ml topical cream (20 sources) Corticosteroid Start: 03-10-2020 End: 03-10-2020 Triamcinolone Acetonide 0.1 % cream Discontinued 1 NMA TOPICAL THREE TIMES A DAY March 10, 2020 12:00am March 10, 2020 12:13pm Apply to affected areas 3-4 times per day, avoid eyes Problems Active Problems Problem Classification Problem Date Documented Da te Episodic/Chronic Abdominal pain (20 sources) Abdominal pain; Translations: [Unspecified abdominal pain] Episodic Allergic reactions (17 sources) Allergic reaction; Translations: [Allergy, unspecified, initial encounter] 09-17-2014 Episodic Chronic obstructive pulmonary disease and bronchiectasis (17 sources) Bronchitis; Translations: [Bronchitis, not specified as acute or chronic] 05-26-2018 Episodic Congestive heart failure; nonhypertensive (20 sources) Chronic systolic heart failure; Translations: [Chronic systolic (congestive) heart failure] Onset: 9 05-11-2019 Chronic Diabetes mellitus with complications (20 sources) Type 2 diabetes mellitus; Translations: [Type 2 diabetes mellitus with hyperglycemia] Onset: 2 Chronic Diabetes mellitus without complication (8 sources) Diabetes mellitus; Translations: [Type 2 diabetes mellitus without complications] Onset: 1 10-21-2016 Chronic Esophageal disorders (20 sources) Gastroesophageal reflux disease; Translations: [Gastro-esophageal reflux disease without esophagitis] Onset: 6 07-23-2010 Chronic Essential hypertension (17 sources) Essential hypertension; Translations: [Essential (primary) hypertension] 11-30-2018 Chronic Gastritis and duodenitis (15 sources) Bile-induced gastritis; Translations: [Other gastritis without bleeding] 07-22-2022 Episodic Gastrointestinal hemorrhage (20 sources) Rectal hemorrhage; Translations: [Hemorrhage of anus and rectum] Onset: 5 Episodic Hepatitis (2 sources) Cirrhosis - non-alcoholic; Translations: [Nonalcoholic steatohepatitis (WILSON)] Chronic Influenza (17 sources) Influenza; Translations: [Influenza due to unidentified influenza virus with other respiratory manifestations] 05-26-2018 Episodic Joint disorders and dislocations; trauma-related (17 sources) Derangement of left knee; Translations: [Other internal derangements of left knee] 02-12-2018 Chronic Joint disorders and dislocations; trauma-related (20 sources) Tear of medial meniscus of knee; Translations: [Other tear of medial meniscus, current injury, left knee, subsequent encounter] 02-12-2018 Episodic Other aftercare (2 sources) 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; Translations: [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] Onset: 2 Episodic Other and ill-defined heart disease (17 sources) Combined systolic and diastolic dysfunction; Translations: [Other ill-defined heart diseases] 11-30-2018 Chronic Other connective tissue disease (2 sources) Pain in calf; Translations: [Pain in right lower leg] 11-16-2024 Episodic Other connective tissue disease (1 source) Synovial cyst of popliteal space [Colbert], right knee; Translations: [Synovial cyst of right popliteal space] Onset: 5 Episodic Other connective tissue disease (1 source) Pain in right leg; Translations: [Right leg pain] Onset: 5 Episodic Other gastrointestinal disorders (15 sources) Diarrhea; Translations: [Diarrhea, unspecified] 05-04-2022 Episodic Other gastrointestinal disorders (6 sources) Diarrhea, unspecified; Translations: [Diarrhea] Episodic Other injuries and conditions due to external causes (1 source) Intramuscular hematoma; Translations: [Other injury of unspecified body region, initial encounter] 11-18-2024 Episodic Other liver diseases (14 sources) Steatosis of liver; Translations: [Fatty (change of) liver, not elsewhere classified] 06-01-2022 Chronic Other liver diseases (16 sources) Hepatic fibrosis; Translations: [Hepatic fibrosis] 06-24-2022 Chronic Other lower respiratory disease (20 sources) Dyspnea; Translations: [Shortness of breath] Onset: 9 05-11-2019 Episodic Other non-traumatic joint disorders (3 sources) Shoulder pain; Translations: [Pain in left shoulder] Episodic Other non-traumatic joint disorders (17 sources) Pain in left knee; Translations: [Pain of left knee after injury] 02-12-2018 Episodic Other non-traumatic joint disorders (1 source) Chronic pain of right upper limb; Translations: [Pain in right shoulder] Episodic Other nutritional; endocrine; and metabolic disorders (20 sources) Obese class I; Translations: [Obesity, unspecified] Onset: 9 12-29-2018 Chronic Other nutritional; endocrine; and metabolic disorders (6 sources) Obesity; Translations: [Obesity, unspecified] Onset: 6 07-23-2010 Chronic Bria-; endo-; and myocarditis; cardiomyopathy (except that caused by tuberculosis or sexually transmitted disease) (20 sources) Dilated cardiomyopathy; Translations: [Dilated cardiomyopathy] Onset: 9 05-11-2019 Chronic Phlebitis; thrombophlebitis and thromboembolism (17 sources) Deep venous thrombosis of lower extremity; Translations: [Acute embolism and thrombosis of unspecified deep veins of unspecified lower extremity] 02-12-2018 Episodic Pulmonary heart disease (7 sources) Saddle embolus of pulmonary artery; Translations: [Saddle embolus of pulmonary artery with acute cor pulmonale] Onset: 7 10-21-2016 Chronic Regional enteritis and ulcerative colitis (15 sources) Terminal ileitis; Translations: [Crohn's disease of small intestine without complications] 07-22-2022 Chronic Residual codes; unclassified (1 source) History of operative procedure on shoulder; Translations: [Other specified postprocedural states] Episodic Residual codes; unclassified (1 source) Family history of Marfan syndrome; Translations: [Family history of other congenital malformations, deformations and chromosomal abnormalities] 12-07-2024 Episodic Skin and subcutaneous tissue infections (12 sources) Cellulitis of toe; Translations: [Cellulitis of right toe] 05-08-2023 Episodic Sprains and strains (2 sources) Traumatic rupture of rotator cuff; Translations: [Strain of muscle(s) and tendon(s) of the rotator cuff of left shoulder, initial encounter] Episodic Thyroid disorders (1 source) Thyrotoxicosis, unspecified without thyrotoxic crisis or storm; Translations: [Thyrotoxicosis, unspecified without thyrotoxic crisis or storm] Onset: Chronic Past or Other Problems Problem Classification Problem Date Documented Da te Episodic/Chronic Immunizations and screening for infectious disease (20 sources) Mantoux: positive; Translations: [Nonspecific reaction to tuberculin skin test without active tuberculosis] Onset: 07-23-2010 07-23-2010 Episodic Other connective tissue disease (1 source) Pain in right lower leg; Translations: [Pain in right lower leg] Onset: 11-21-2024 Episodic Other lower respiratory disease (1 source) Shortness of breath; Translations: [Shortness of breath] Onset: 05-11-2019 Episodic Other screening for suspected conditions (not mental disorders or infectious disease) (6 sources) Thyroid function tests abnormal; Translations: [Other specified abnormal findings of blood chemistry] Onset: 01-20-2011 01-20-2011 Episodic Pulmonary heart disease (17 sources) Pulmonary embolism; Translations: [Other pulmonary embolism without acute cor pulmonale] Onset: 07-22-2016 11-30-2018 Episodic Residual codes; unclassified (1 source) Family history of other congenital malformations, deformations and chromosomal abnormalities; Translations: [Family history of Marfan syndrome] Onset: 12-07-2024 Episodic Superficial injury; contusion (20 sources) Contusion of knee; Translations: [Contusion of left knee, initial encounter] Onset: 11-23-2024 02-12-2018 Episodic Unclassified (17 sources) Partially torn MCL 02-12-2018 Unclassified (17 sources) Torn PCL 02-12-2018 Unclassified (17 sources) torn cartilage behind knee 02-12-2018 Unclassified (5 sources) Onset: 10-15-2021 10-15-2021 Results Test Name Value Interpretation Reference Range Facility MR/[place] 04-02-2025 /[facility] Medical Records Department [address] [place] [address] PAT - Anesthesia 04/02/25 1529 MR#: [id number] Acct: [id number] Name: KATRINA MELVIN #: [id number] : 1975 49 From: Bossman French MD PCP: Dr. 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 When Was Last Pacemaker Check QUESTION #4 FULL TEXT: You/Your Family Experience fever (hyperthermia) with Anesthesia Last Oral Intake Last Oral intake: Last Oral Intake NPO since Meds taken in AM with sips of water? Meds patient instructed to take am of surgery PONV PONV - feed mill manager: PONV - feed mill manager Female No 04/02/25 12:53 HX of Motion Sickness No 04/02/25 12:53 HX of N/V After Surgery No 04/02/25 12:53 Non-Smoker Yes 04/02/25 12:53 Duration of Surgery greater No 04/02/25 12:53 than 60 minutes Number of Risk Factors 1 04/02/25 12:53 PONV Score Low Risk 04/02/25 12:53 Height Weight Height Weight: Anesthesia: Height Weight Height 6 ft 4 in 11/18/24 09:49 Respiratory Assessment Respiratory Assessment - feed mill manager: Respiratory Tract Infection Hx - feed mill manager Hx Respiratory Tract Infection No 04/02/25 12:53 STOP Sleep Apnea STOP Sleep Apnea - feed mill manager: STOP Sleep Apnea - feed mill manager Hx Hypertension Yes 04/02/25 12:53 Hx Sleep Apnea Yes 04/02/25 12:53 CPAP Yes 04/02/25 12:53 BIPAP No 04/02/25 12:53 Do you snore loudly (louder No 04/02/25 12:53 than talking or can be heard Do you often feel tired/ No 04/02/25 12:53 fatigued/ sleepy during daytime? Has anyone observed you stop No 04/02/25 12:53 breathing during sleep? STOP Results Positive 04/02/25 12:53 QUESTION #5 FULL TEXT : Do you snore loudly (louder than talking or can be heard through closed doors)? 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 Specify any problems Hx of Preganancy in last 3 N/A 04/02/25 12:53 Months Nurse Filling Out Transfusion NBUCHER 04/02/25 12:53 Questions: Date: 04/02/25 04/02/25 12:53 Time: 12:54 04/02/25 12:53 Patient unable to answer at this time (ie. confused, unrespo /Reproduction History /Reproductive History - feed mill manager: /Reproductive Hx- feed mill manager Hx Now No 04/02/25 12:53 Gestational Age (in weeks): EDC: Hx Hx Para Hx Section SAB No 04/02/25 12:53 PFSH Medical History (Updated 04/02/25 @ 12:58 by Cherelle Dozier) Insulin dependent diabetes mellitus GERD (gastroesophageal reflux disease) Barretts esophagus Fatty liver Thyroid disease Arthritis DVT (deep venous thrombosis) Injury of back Injury of head and neck History of GI bleed Former smoker Shortness of breath on exertion Leg cramps History of edema History of echocardiogram History of stress test Cardiology follow-up encounter History of CHF (congestive heart failure) Rotator cuff arthropathy of left shoulder History of TIA (transient ischemic attack) Diabetes mellitus Hemorrhage of anus and rectum Idiopathic cardiomyopathy Thyroid nodule Essential (primary) hypertension 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 Type 2 diabetes me (more content not included)... [facility] 03-27-2025 [facility] Telephone ([facility]) ----- VIAKATRINA ([id number]) 1975 M Date Time Provider Department 03/27/25 GUS CADENA [facility] During your visit today, we recorded the following information about you: Gus Cadena LGC 03/27/2025 3:36 PM Signed Spoke with patient about potential case study through [facility] Wealth Access medicine study which he previously consented through through [facility]. He was interested and gave consent for me to pass his contact information to my colleague at [facility] (Anamaria Terrell). He will be meeting with most of his family this weekend and will also bring it up to them. ---- Gus Cadena MS, [facility] Licensed Genetic Counselor Email: [email or web address] Allergies As of Date: 03/27/2025 Noted Allergy Reaction CHOCOLATE 09/01/2005 8 - GI Upset CODEINE 09/01/2005 4 - Hives DEFINITY (PERFLUTREN LIPID MICROS*10/21/2016 14 - Other: See Comments Comments: Severe back pain Date Reviewed: 11/20/2024 Reviewed by: Luis Enrique Villasenor, BARRY - Fully Assessed Reason for Visit: Informed Consent [[id number]] Prescriptions as of 03/27/2025 - omega-3 fatty acids (FISH OIL CONCENTRATE) 1,000 mg cap Take 2 g by mouth once daily. - enoxaparin sodium (LOVENOX SUBCUTANEOUS) Inject 135 mg subcutaneously every 12 hours. - spironolactone (ALDACTONE) 25 mg tablet Take 25 mg by mouth once daily. - carvedilol (COREG) 25 mg tablet Take two tablets by mouth twice daily. - empagliflozin (JARDIANCE) 10 mg tablet Take 10 mg by mouth once daily. - sacubitril-valsartan (ENTRESTO) 97-103 mg tablet Take 1 tablet by mouth twice daily. - citalopram (CELEXA) 20 mg tablet Take 20 mg by mouth once daily. - cholecalciferol, vitamin D3, (VITAMIN D3 ORAL) Take 5,000 Units by mouth once daily. - furosemide (LASIX) 40 mg tablet Take 40 mg by mouth twice daily as needed. - dulaglutide (TRULICITY) 1.5 mg/0.5 mL Inject 1.5 mg subcutaneously one time a week. - magnesium oxide (MAG-OX) 400 mg (241.3 mg magnesium) tablet Take 400 mg by mouth once daily. - metHIMazole (TAPAZOLE) 5 mg tablet Take 7 mg by mouth once daily. - fluticasone propionate(FLONASE 50 MCG/ACTUATION NASAL SPRAY) One puff per nostril before lying down for bed. - p-ephed hcl/fexofenadine hcl(MICHELLE-D 12 HOUR 60 MG-120 MG TAB) Take one(1) tablet twice daily as need for allergies - THERAPEUTIC MULTIVITAMIN TAB Take 1 tablet by mouth once daily. Problem List As Of Date 03/27/2025 Noted Resolved Esophageal reflux [K21.9] 09/18/2005 Obesity, unspecified [E66.9] 09/18/2005 Type II or unspecified type diabetes mellitus w*07/23/2010 Positive PPD [R76.11] 07/23/2010 Abnormal thyroid blood test [R79.89] 01/20/2011 Saddle embolus of pulmonary artery with acute c*10/21/2016 Encounter Status:Closed by GUS CADENA on 03/27/25 Normal [facility] Cardiac echo study Procedure Ordered By: Era Drake on 03-23-2025 Ao annulus index 1.58 cm/m2 [facility] Work Phone: Ao peak aquilino 1.00 m/s [facility] Work Phone: Ao root annulus 3.80 cm [facility] Work Phone: Ao SOV index 1.63 cm[facility] Work Phone: Ao STJ index 1.88 cm/m2 [facility] Work Phone: Ao VTI 24.20 [facility] Work Phone: AV LVOT peak gradient 3 mmHg [facility] Work Phone: AV peak gradient 4 mmHG [facility] Work Phone: AV Velocity Ratio 0.80 [facility] Work Phone: REBA (continuity Vmax) 4.25 cm2 [facility] Work Phone: REBA index (continuity Vmax) 1.77 m/s [facility] Work Phone: Avg e' pk aquilino 0.10 m/s [facility] Work Phone: Avg E/e' ratio 7.58 [facility] Work Phone: Body surface area Derived from formula 2.4 m2 [facility] Work Phone: DI (Vmax) 0.80 [facility] Work Phone: e' lateral pk aquilino 0.0700 m/s [facility] Work Phone: e' lateral pk aquilino 0.07 m[facility] Work Phone: e' septal pk aquilino 0.1200 m/s [facility] Work Phone: e' septal pk [facility].12 [facility]: E/A ratio 0.82 [facility] Work Phone: E/e' lateral ratio 9.57 [facility] Work Phone: E/e' septal ratio 5.58 [facility] Work Phone: EF SP 2CH 45 [facility] Work Phone: EST RAP 8.00 mmHg [facility] Work Phone: [phone] 33 % [facility] Work Phone: [phone] IVC ostium 2.60 cm [facility] Work Phone: IVS 1.00 cm [facility] Work Phone: LA ESV SP 2CH (MOD) 80 mL [facility] Work Phone: LA ESV SP 4CH (MOD) 98 mL [facility] Work Phone: LA size 5.20 cm [facility] Work Phone: LEFT ATRIAL DIAMETER INDEX 2.17 cm/m2 [facility] Work Phone: LV EDV SP 2CH 155 mL [facility] Work Phone: LV ESV SP 2CH 85 mL [facility] Work Phone: LV mass 226.35 g [facility] Work Phone: LV Mass Index 94.3 g/m2 [facility] Work Phone: LV RWT 0.35 [facility] Work Phone: LVIDD 5.70 cm [facility] Work Phone: LVIDS 3.80 cm [facility] Work Phone: LVOT area 5.31 cm2 [facility] Work Phone: LVOT diameter 2.60 [facility] Work Phone: LVOT peak aquilino 0.80 m/s [facility] Work Phone: MV pk A aquilino 0.82 m/s [facility] Work Phone: MV pk E aquilino 0.67 m/s [facility] Work Phone: [facility] RVOT VTI RATIO 0.85 [facility] Work Phone: PV peak gradient [facility] Work [facility]: PV PK AQUILINO 0.90 m/s [facility] Work Phone: PV VTI 18.40 [facility] Work Phone: PW 1.00 cm [facility] Work Phone: RA vol index 4CH (MOD) 22.08 mL/m2 [facility] Work Phone: Right atrium volume 4 chamber method of disks 53 [facility] Work [facility]: RV Area diastolic 34.00 cm2 [facility] Work Phone: RV Area systolic 15.00 cm2 [facility] Work Phone: RV basal diam 5.00 cm [facility] Work Phone: RV Fractional area change 55.9 % [facility] Work Phone: RV long diam 11.00 [facility] Work Phone: RV mid diam 3.20 cm [facility] Work Phone: RVOT peak gradient 2 mmHg [facility] Work Phone: RVOT peak aquilino 0.68 m/s [facility] Work Phone: RVOT peak VTI 15.60 cm [facility] Work Phone: Sinus 3.90 cm [facility] Work Phone: STJ 4.50 cm [facility] Work Phone: TAPSE 1.80 cm [facility] Work Phone: [facility] Work Phone: Cardiac echo study Procedure on 03-23-2025 Left Ventricle: Essie marko size is normal. Normal wall thickness. Mild global hypokinesis. Wall motion abnormality: See wall scoring diagram. Ejection fraction is mildly reduced (45 - 50%). Diastolic function is normal for age. Right Ventricle: Chamber size is enlarged. Systolic function is normal. Left Atrium: Chamber size is enlarged. Aortic Valve: Trileaflet valve. Leaflet mobility is normal. Aortic valve function not well visualized. No regurgitation. No stenosis. Mitral Valve: Normal appearing leaflets. Leaflet mobility is normal. No regurgitation. No valve stenosis. Tricuspid Valve: Normal leaflets. Leaflet mobility is normal. No regurgitation. No stenosis. Pulmonary artery systolic pressure (PASP) is unable to be estimated. Aorta: Sinuses of Valsalva/aortic root is mildly enlarged. Ascending aorta is mildly enlarged. Annulus: 3.80 cm. SOV: 3.90 cm. STJ: 4.50 cm. Left Ventricle Chamber size is normal. Normal wall thickness. Mild global hypokinesis. Wall motion abnormality: See wall scoring diagram. Ejection fraction is mildly reduced (45 - 50%). Diastolic function is normal for age. Right Ventricle Chamber size is enlarged. Systolic function is normal. Fractional area change equals 55.9%. Left Atrium Chamber size is enlarged. Right Atrium Chamber size is mildly enlarged. IVC/SVC The inferior vena cava is enlarged. The diameter is >21 mm and decreases >50% during inspiration. Mitral Valve Normal appearing leaflets. Leaflet mobility is normal. No regurgitation. No valve stenosis. Tricuspid Valve Normal leaflets. Leaflet mobility is normal. No regurgitation. No stenosis. Pulmonary artery systolic pressure (PASP) is unable to be estimated. Aortic Valve Trileaflet valve. Leaflet mobility is normal. Aortic valve function not well visualized. No regurgitation. No stenosis. Pulmonic Valve Trace regurgitation. No stenosis. Pericardium No pericardial effusion. Septum The atrial septum is normal. Aorta Sinuses of Valsalva/aortic root is mildly enlarged. Ascending aorta is mildly enlarged. Annulus: 3.80 cm. SOV: 3.90 cm. STJ: 4.50 cm. Study Details A complete echocardiography study (including color flow Doppler, spectral Doppler and M-mode) without microbubbles was performed. Overall study quality was fair. Contrast was not administered due to patient allergy. Study limitations include poor cardiac windows and patient body habitus. Indications Indications for study: dyspnea and shortness of breath. Wall Scoring Score Index: 2.00 The left ventricular wall motion is globally hypokinetic. [facility] Radiology Study observation (narrative) [facility] ECHOCARDIOGRAMon 03-23-2025 Echocardiography ? Left Ventricle: Ch jake size is normal. Normal wall thickness. Mild global hypokinesis. Wall motion abnormality: See wall scoring diagram. Ejection fraction is mildly reduced (45 - 50%). Diastolic function is normal for age. ? Right Ventricle: Chamber size is enlarged. Systolic function is normal. ? Left Atrium: Chamber size is enlarged. ? Aortic Valve: Trileaflet valve. Leaflet mobility is normal. Aortic valve function not well visualized. No regurgitation. No stenosis. ? Mitral Valve: Normal appearing leaflets. Leaflet mobility is normal. No regurgitation. No valve stenosis. ? Tricuspid Valve: Normal leaflets. Leaflet mobility is normal. No regurgitation. No stenosis. Pulmonary artery systolic pressure (PASP) is unable to be estimated. ? Aorta: Sinuses of Valsalva/aortic root is mildly enlarged. Ascending aorta is mildly enlarged. Annulus: 3.80 cm. SOV: 3.90 cm. STJ: 4.50 cm. Table formatting from the original result was not included. Images from the original result were not included. [facility] Facility [facility] Patient Information Patient Name Katrina Melvin Legal Sex Male Indication for Exam Priority: Routine Dx: Shortness of breath [R06.02 (ICD-10-CM)] Comments: Cardiac clearance for ortho surgery on 04/05/25 Interpretation Summary Result History is available. ? Left Ventricle: Chamber size is normal. Normal wall thickness. Mild global hypokinesis. Wall motion abnormality: See wall scoring diagram. Ejection fraction is mildly reduced (45 - 50%). Diastolic function is normal for age. ? Right Ventricle: Chamber size is enlarged. Systolic function is normal. ? Left Atrium: Chamber size is enlarged. ? Aortic Valve: Trileaflet valve. Leaflet mobility is normal. Aortic valve function not well visualized. No regurgitation. No stenosis. ? Mitral Valve: Normal appearing leaflets. Leaflet mobility is normal. No regurgitation. No valve stenosis. ? Tricuspid Valve: Normal leaflets. Leaflet mobility is normal. No regurgitation. No stenosis. Pulmonary artery systolic pressure (PASP) is unable to be estimated. ? Aorta: Sinuses of Valsalva/aortic root is mildly enlarged. Ascending aorta is mildly enlarged. Annulus: 3.80 cm. SOV: 3.90 cm. STJ: 4.50 cm. Findings Left Ventricle Chamber size is normal. Normal wall thickness. Mild global hypokinesis. Wall motion abnormality: See wall scoring diagram. Ejection fraction is mildly reduced (45 - 50%). Diastolic function is normal for age. Right Ventricle Chamber size is enlarged. Systolic function is normal. Fractional area change equals 55.9%. Left Atrium Chamber size is enlarged. Right Atrium Chamber size is mildly enlarged. Septum The atrial septum is normal. Mitral Valve Normal appearing leaflets. Leaflet mobility is normal. No regurgitation. No valve stenosis. Aortic Valve Trileaflet valve. Leaflet mobility is normal. Aortic valve function not well visualized. No regurgitation. No stenosis. Tricuspid Valve Normal leaflets. Leaflet mobility is normal. No regurgitation. No stenosis. Pulmonary artery systolic pressure (PASP) is unable to be estimated. Pulmonic Valve Trace regurgitation. No stenosis. Aorta Sinuses of Valsalva/aortic root is mildly enlarged. Ascending aorta is mildly enlarged. Annulus: 3.80 cm. SOV: 3.90 cm. STJ: 4.50 cm. Pericardium No pericardial effusion. IVC/SVC The inferior vena cava is enlarged. The diameter is >21 mm and decreases >50% during inspiration. Reading Providers Reading Role Read Date Era Drake MD [facility] [place], Test Chief Maintenance Supervisor 03/23/2025 Wall Scoring Score Index: 2.00 The left ventricular wall motion is globally hypokinetic. Left Heart Measurements LV - Systole LVIDD 5.7 cm IVS 1 cm LVIDS 3.8 cm PW 1 cm LV RWT 0.35 LV Mass Index 94.3 g/m2 LV - Diastole MV pk E aquilino 0.67 m/s MV pk A aquilino 0.82 m/s E/A ratio 0.82 e' septal pk aquilino 0.12 m/s e' lateral pk aquilino 0.07 m/s Avg e' pk aquilino 0.1 m/s E/e' septal ratio 5.58 E/e' lateral ratio 9.57 Avg E/e' ratio 7.58 LV - HCM AV LVOT peak gradient 3 mmHg Left Atrium LA size 5.2 cm LA ESV SP 4CH (MOD) 98 mL LA ESV SP 2CH (MOD) 80 mL Right Heart Measurements RV - 2D RV basal diam 5 cm RV mid diam 3.2 cm RV long diam 11 cm RV Area diastolic 34 cm2 RV Area systolic 15 cm2 RV Fractional area change 55.9 % RV - Doppler TAPSE 1.8 cm Right Atrium RA vol index 4CH (MOD) 22.08 mL/m2 EST RAP 8 mmHg Great Vessels Aortic Root - End Diastolic Ao root annulus 3.8 cm Sinus 3.9 cm STJ 4.5 cm Inferior Vena Cava IVC ostium 2.6 cm Doppler Measurements - Aortic Valve Stenosis LVOT diameter 2.6 cm LVOT area 5.31 cm2 LVOT peak aquilino 0.8 m/s Ao peak aquilino 1 m/s Ao VTI 24.2 cm AV p (more content not included)... Normal [facility] Hemoglobin A1con 03-16-2025 HbA1c (Bld) [Mass fraction] 7.1 % High <=5.6 [facility] Comment on above: Order Comment: DR. Celestino WAGNER GETS A1C DR. BOYCE GETS EVERYTHING ELSE Result Comment: Norm al < 5.7 % Prediabetic 5.7 - 6.4 % Diabetic >or= 6.5 % Please note range changes. Performed By: #### L 500.2500, L500.3400, L100.0100, L300.3900, L501.9985, L300.4310, L3300.0700 #### [facility] [address] [place], [address] Basic Metabolic Profile (BMP )on 03-15-2025 BUN/CRE 20.5 RATIO High 10-20 [facility] Comment on above: Performed By: #### L 500.2500, L500.3400, L100.0100, L300.3900, L501.9985, L300.4310, L3300.0700 #### [facility] [address] [place], [address] Calcium [Mass/Vol] 9.0 mg/dL Normal 7.6-11.0 [facility] Comment on above: Performed By: #### L 500.2500, L500.3400, L100.0100, L300.3900, L501.9985, L300.4310, L3300.0700 #### [facility] [address] [place], [address] Chloride [Moles/Vol] 101 mmol/L Normal 98-108 [facility] Comment on above: Performed By: #### L 500.2500, L500.3400, L100.0100, L300.3900, L501.9985, L300.4310, L3300.0700 #### [facility] [address] [place], [address] CO2 [Moles/Vol] 24.2 mmol/L Normal 21.0-32.0 [facility] Comment on above: Performed By: #### L 500.2500, L500.3400, L100.0100, L300.3900, L501.9985, L300.4310, L3300.0700 #### [facility] [address] [place], [address] Creatinine [Mass/Vol] 0.77 mg/dL Normal 0.70-1.20 [facility] Comment on above: Performed By: #### L 500.2500, L500.3400, L100.0100, L300.3900, L501.9985, L300.4310, L3300.0700 #### [facility] [address] [place], [address] GAP 12 Normal 5-15 [facility] Comment on above: Performed By: #### L 500.2500, L500.3400, L100.0100, L300.3900, L501.9985, L300.4310, L3300.0700 #### [facility] [address] [place], [address] GFR/1.73 sq M.predicted among non-blacks MDRD (S/P/Bld) [Vol rate/Area] 110 mL/min/{1.73_m2} Normal >60 [facility] Comment on above: Result Comment: mL/m in/1.73m2 CKD-EPI Creatinine Equation (2020) Performed By: #### L 500.2500, L500.3400, L100.0100, L300.3900, L501.9985, L300.4310, L3300.0700 #### [facility] [address] [place], [address] Glucose [Mass/Vol] 152 mg/dL High 70-99 [facility] Comment on above: Performed By: #### L 500.2500, L500.3400, L100.0100, L300.3900, L501.9985, L300.4310, L3300.0700 #### [facility] [address] [place], [address] Potassium [Moles/Vol] 4.9 mmol/L Normal 3.3-5.1 [facility] Comment on above: Result Comment: Hemo lysis present, Results??could be affected. ?? Performed By: #### L 500.2500, L500.3400, L100.0100, L300.3900, L501.9985, L300.4310, L3300.0700 #### [facility] [address] [place], [address] Sodium [Moles/Vol] 137 mmol/L Normal 133-145 [facility] Comment on above: Performed By: #### L 500.2500, L500.3400, L100.0100, L300.3900, L501.9985, L300.4310, L3300.0700 #### [facility] [address] [place], [address] Urea nitrogen [Mass/Vol] 16 mg/dL Normal 4-19 [facility] Comment on above: Performed By: #### L 500.2500, L500.3400, L100.0100, L300.3900, L501.9985, L300.4310, L3300.0700 #### [facility] [address] [place], [address] CBC W/Diff, Automatedon 09-2 5-2024 Absolute Lymph 1.75 X10 3/uL Normal 0.83-4.51 [facility] Comment on above: Performed By: #### L 500.2500, L500.3400, L100.0100, L300.3900, L501.9985, L300.4310, L3300.0700 #### [facility] [address] [place], [address] Absolute Neut 3.0 X10 3/uL Normal 2.0-7.7 [facility] Comment on above: Performed By: #### L 500.2500, L500.3400, L100.0100, L300.3900, L501.9985, L300.4310, L3300.0700 #### [facility] [address] [place], [address] Basophils/100 WBC (Bld) 0.5 % Normal 0-1 [facility] Comment on above: Performed By: #### L 500.2500, L500.3400, L100.0100, L300.3900, L501.9985, L300.4310, L3300.0700 #### [facility] [address] [place], [address] Eosinophils/100 WBC (Bld) 1.6 % Normal 0-5 [facility] Comment on above: Performed By: #### L 500.2500, L500.3400, L100.0100, L300.3900, L501.9985, L300.4310, L3300.0700 #### [facility] [address] [place], [address] Erythrocyte distribution width (RBC) [Ratio] 14.4 % Normal 11.6-14.6 [facility] Comment on above: Performed By: #### L 500.2500, L500.3400, L100.0100, L300.3900, L501.9985, L300.4310, L3300.0700 #### [facility] [address] [place], [address] Hematocrit (Bld) [Volume fraction] 45.3 % Normal 40-54 [facility] Comment on above: Performed By: #### L 500.2500, L500.3400, L100.0100, L300.3900, L501.9985, L300.4310, L3300.0700 #### [facility] [address] [place], [address] Hemoglobin (Bld) [Mass/Vol] 15.4 g/dL Normal 13.0-16.5 [facility] Comment on above: Performed By: #### L 500.2500, L500.3400, L100.0100, L300.3900, L501.9985, L300.4310, L3300.0700 #### [facility] [address] [place], [address] IG% 0.200 Normal 0.0-0.9 [facility] Comment on above: Result Comment: IG% - Immature Granulocytes (promyelocytes, myelocytes and metamyelocytes) > 1% indicates that a LEFT SHIFT is Present. Performed By: #### L 500.2500, L500.3400, L100.0100, L300.3900, L501.9985, L300.4310, L3300.0700 #### [facility] [address] [place], [address] Lymphocytes/100 WBC (Bld) 31.9 % Normal 19-41 [facility] Comment on above: Performed By: #### L 500.2500, L500.3400, L100.0100, L300.3900, L501.9985, L300.4310, L3300.0700 #### [facility] [address] [place], [address] MCH (RBC) [Entitic mass] 30.8 pg Normal 27.0-32.0 [facility] Comment on above: Performed By: #### L 500.2500, L500.3400, L100.0100, L300.3900, L501.9985, L300.4310, L3300.0700 #### [facility] [address] [place], [address] MCHC (RBC) [Mass/Vol] 34.0 g/dL Normal 32-36 [facility] Comment on above: Performed By: #### L 500.2500, L500.3400, L100.0100, L300.3900, L501.9985, L300.4310, L3300.0700 #### [facility] [address] [place], [address] MCV (RBC) [Entitic vol] 90.6 fL Normal 80-94 [facility] Comment on above: Performed By: #### L 500.2500, L500.3400, L100.0100, L300.3900, L501.9985, L300.4310, L3300.0700 #### [facility] [address] [place], [address] Monocytes/100 WBC (Bld) 10.6 % High 0-10 [facility] Comment on above: Performed By: #### L 500.2500, L500.3400, L100.0100, L300.3900, L501.9985, L300.4310, L3300.0700 #### [facility] [address] [place], [address] Neutrophils/100 WBC (Bld) 55.2 % Normal 47-70 [facility] Comment on above: Performed By: #### L 500.2500, L500.3400, L100.0100, L300.3900, L501.9985, L300.4310, L3300.0700 #### [facility] [address] [place], [address] Nucleated RBC (Bld) [#/Vol] 0 10*3/uL Normal 0-5 [facility] Comment on above: Performed By: #### L 500.2500, L500.3400, L100.0100, L300.3900, L501.9985, L300.4310, L3300.0700 #### [facility] [address] [place], [address] Platelet mean volume (Bld) [Entitic vol] 9.3 fL Normal 6.2-12.0 [facility] Comment on above: Performed By: #### L 500.2500, L500.3400, L100.0100, L300.3900, L501.9985, L300.4310, L3300.0700 #### [facility] [address] [place], [address] Platelets (Bld) [#/Vol] 225 10*3/uL Normal 150-450 [facility] Comment on above: Performed By: #### L 500.2500, L500.3400, L100.0100, L300.3900, L501.9985, L300.4310, L3300.0700 #### [facility] [address] [place], [address] RBC (Bld) [#/Vol] 5.00 10*6/uL Normal 4.6-6.2 [facility] Comment on above: Performed By: #### L 500.2500, L500.3400, L100.0100, L300.3900, L501.9985, L300.4310, L3300.0700 #### [facility] [address] [place], [address] RDW SD 47.8 fl High 35.1-43.9 [facility] Comment on above: Performed By: #### L 500.2500, L500.3400, L100.0100, L300.3900, L501.9985, L300.4310, L3300.0700 #### [facility] [address] [place], [address] WBC (Bld) [#/Vol] 5.5 10*3/uL Normal 4.4-11.0 [facility] Comment on above: Performed By: #### L 500.2500, L500.3400, L100.0100, L300.3900, L501.9985, L300.4310, L3300.0700 #### [facility] [address] [place], [address] 12 Lead EKGon 03-14-2025 12 Lead EKG [facility] Cardiovascular Services [address] [place] [address] 12 Lead EKG 03/14/25 0819 MR#: [id number] Acct: [id number] Name: KATRINA MELVIN Rep #: [id number] : 1975 49 From: Berta Rachel MD Attending Dr: Dr. Reynaldo Grant DO Status: PRE [facility] Ordering Dr: Reynaldo Grant DO Date: 03/14/25 Location: [facility] Sex: M C Admitted: Test Reason : PREOP Blood Pressure : */* mmHG Vent. Rate : 71 BPM Atrial Rate : 71 BPM P-R Int : 152 ms QRS Dur : 100 ms QT Int : 386 ms P-R-T Axes : 32 3 10 degrees QTcB Int : 419 ms Normal sinus rhythm Normal ECG Confirmed by Berta Rachel ([id number]), art editor NENA HOLBROOK ([id number]) on 03/15/2025 5:53:57 AM Also confirmed by Berta Rachel ([id number]), art editor NENA HOLBROOK ([id number]) on 03/15/2025 5:54:10 AM Referred By: Reynaldo Grant Confirmed By: Berta Rachel 03/15/25 0554 Date Berta Rachel MD CC: Dr. Jeniffer White DO; Dr. Reynaldo Grant DO Signed Normal [facility] 02-07-2025 [facility] Tele[facility] ([facility]) ----- KATRINA MELVIN ([id number]) 1975 Date Time Provider Department 02/07/25 GUS CADENA [facility] During your visit today, we recorded the following information about you: Allergies As of Date: 02/07/2025 Noted Allergy Reaction CHOCOLATE 09/01/2005 8 - GI Upset CODEINE 09/01/2005 4 - Hives DEFINITY (PERFLUTREN LIPID MICROS*10/21/2016 14 - Other: See Comments Comments: Severe back pain Date Reviewed: 11/20/2024 Reviewed by: Luis Enrique Villasenor, BARRY - Fully Assessed Prescriptions as of 02/07/2025 - omega-3 fatty acids (FISH OIL CONCENTRATE) 1,000 mg cap Take 2 g by mouth once daily. - enoxaparin sodium (LOVENOX SUBCUTANEOUS) Inject 135 mg subcutaneously every 12 hours. - spironolactone (ALDACTONE) 25 mg tablet Take 25 mg by mouth once daily. - carvedilol (COREG) 25 mg tablet Take two tablets by mouth twice daily. - empagliflozin (JARDIANCE) 10 mg tablet Take 10 mg by mouth once daily. - sacubitril-valsartan (ENTRESTO) 97-103 mg tablet Take 1 tablet by mouth twice daily. - citalopram (CELEXA) 20 mg tablet Take 20 mg by mouth once daily. - cholecalciferol, vitamin D3, (VITAMIN D3 ORAL) Take 5,000 Units by mouth once daily. - furosemide (LASIX) 40 mg tablet Take 40 mg by mouth twice daily as needed. - dulaglutide (TRULICITY) 1.5 mg/0.5 mL Inject 1.5 mg subcutaneously one time a week. - magnesium oxide (MAG-OX) 400 mg (241.3 mg magnesium) tablet Take 400 mg by mouth once daily. - metHIMazole (TAPAZOLE) 5 mg tablet Take 7 mg by mouth once daily. - fluticasone propionate(FLONASE 50 MCG/ACTUATION NASAL SPRAY) One puff per nostril before lying down for bed. - p-ephed hcl/fexofenadine hcl(MICHELLE-D 12 HOUR 60 MG-120 MG TAB) Take one(1) tablet twice daily as need for allergies - THERAPEUTIC MULTIVITAMIN TAB Take 1 tablet by mouth once daily. 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 01/09/2025 5:50 PM Addendum Left voicemail requesting callback to discuss genetic testing results as below: Addendum: spoke to patient 4:30 PM 01/09/25. 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 He was found to carry the same FBN1 variant identified in his other affected relatives. I suspect that this explains his cardiomyopathy given that his previous DCM genetic testing was negative and thus far the FBN1 variant has also been identified in his relatives with cardiomyopathy. NICM is a known manifestation of Marfan syndrome and can be independent of valve function. Based on these results, he should continue follow-up with his software support technician. Needs at least annual cardiac imaging given risk of aortic dilation and valve disease. He should follow-up at least annually with his stick welder given significantly increased risk of ectopia lentis as well as early cataracts. 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 Recommend cascade genetic testing for his son. Since this FBN1 variant is segregating with disease in his family, and his DCM genetic testing was otherwise negative, I believe his son can be released from any cardiac screening if his genetic testing is normal. His son has a 50% chance to have Marfan syndrome. We also discussed the possibility of genetic discrimination for his son if his genetic testing is positive, specifically with respect to life insurance, long-term care, or disability insurance. Discussed he should get annual cardiac screening and dilated eye exam if he does not get genetic testing. He did state that his son scuba dives and I explained there is a risk of spontaneous pneumothorax if he has Marfan syndrome and this is generally not recommended. He will discuss with his son and family and contact me if he's interested in proceeding with genetic testing for his son. He did request I send an email with my referral/office info for his son if needed, and also a reminder about where to access his genetic testing results. Happy to assist with any care coordination needed in the future. No additional questions. Results to be forwarded to his software support technician and referring PCP. ---- Gus Cadena MS, [facility] Licensed Genetic Counselor Email: Allergies As of Date: 01/09/2025 Noted Allergy Reaction CHOCOLATE 09/01/2005 8 - GI Upset CODEINE 09/01/2005 4 - Hives DEFINITY (PERFLUTREN LIPID MICROS*10/21/2016 14 - Other: See Comments Comments: Severe back pain Date Reviewed: 11/20/2024 Reviewed by: Luis Enrique Villasenor, BARRY - Fully Assessed Reason for Visit: Results [95] Cmt: positive for Marfan syndrome Prescriptions as of 01/09/2025 - omega-3 fatty acids (FISH OIL CONCENTRATE) 1,000 mg cap Take 2 g by mouth once daily. - enoxaparin sodium (LOVENOX SUBCUTANEOUS) Inject 135 mg subcutaneously every 12 hours. - spironolactone (ALDACTONE) 25 mg tablet Take 25 mg by mouth once daily. - carvedilol (COREG) 25 mg tablet Take two tablets by mouth twice daily. - empagliflozin (JARDIANCE) 10 mg tablet Take 10 mg by mouth once daily. - sacubitril-valsartan (ENTRESTO) 97-103 mg tablet Take 1 tablet by mouth twice daily. - citalopram (CELEXA) 20 mg tablet Take 20 mg by mouth once daily. - cholecalciferol, vitamin D3, (VITAMIN D3 ORAL) Take 5,000 Units by mouth once daily. - furosemide (LASIX) 40 mg tablet Take 40 mg by mouth twice daily as needed. - dulaglutide (TRULICITY) 1.5 mg/0.5 mL Inject 1.5 mg subcutaneously one time a week. - magnesium oxide (MAG-OX) 400 mg (241.3 mg magnesium) tablet Take 400 mg by mouth once daily. - metHIMazole (TAPAZOLE) 5 mg tablet Take 7 mg by mouth once daily. - fluticasone propionate(FLONASE 50 MCG/ACTUATION NASAL SPRAY) One puff per nostril before lying down for bed. - p-ephed hcl/fexofenadine hcl(MICHELLE-D 12 HOUR 60 MG-120 MG TAB) Take one(1) tablet twice daily as need for allergies - THERAPEUTIC MULTIVITAMIN TAB Take 1 tablet by mouth once daily. 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 Normal [facility]:Creat Ratio,Random URon 12-08-2024 MALB:CREAT 21.5 mg/g CRE Normal [facility] Comment on above: Order Comment: LIPID , TSH, T4F, A1C AMD MIACRE GO TO DR. YU OTHERS GO TO DR. REUBEN BERMUDEZ Result Comment: AMENDED REPORT 12/08/24 0946 MALB:CREAT previously reported as: 214.9 mg/g CRE Performed By: #### L 3300.0700, L506.0400, L501.4700, L500.4050, L500.4100, L502.0250, L100.0100, L501.9520, L501.9985, L300.4310, L300.3900 ####[facility] [id number] [place], [address] Culture, Blood (WB)on 2024 CUB Blood cultures x2, f rom two different sites No growth in 5 days. Normal [facility] Comment on above: Performed By: #### M 200.1000 #### [facility] [address] [place], [address] CUB Blood cultures x2, f rom two different sites No growth in 5 days. Normal [facility] Comment on above: Performed By: #### L 500.2500, L500.3400, L100.0100, L300.3900, L501.9985, L300.4310, L3300.0700 #### [facility] [address] [place], [address] CONSULTon 11-20-2024 CONSULT HNO ID: [id number] Author: BERTA SWAIN MD Service: Orthopaedic Surgery Author Type: Physician Type: Consults Filed: 11/21/2024 08:51 Note Text: Orthopaedic Trauma Surgery Attending Addendum Reviewed resident Consultation. Agree with resident image interpretation, assessment and plan unless otherwise noted. Berta Swain MD Orthopaedic Trauma Surgery 11/21/2024 8:51 AM ORTHOPAEDIC SURGERY CONSULT Pt: KATRINA K NGOZI Date of Consultation: 11/21/2024 Physician Consulted: Dr. Swain Reason for Consultation: RLE pain, r/o compartment syndrome HPI: 49 year old male presented to [facility] with worsening right lower extremity pain and swelling. Patient states he noticed increased pain and swelling to his right lower extremity around 6 weeks ago. This slowly resolved however a little over a week ago patient states he went scuba diving to around 15 feet. Following diving the pain and swelling in his right lower extremity continued to progress. He states a few days ago the swelling had gotten to a point where his right calf felt rigid. He has been unable to ambulate due to pain. He noticed a yellow ecchymosis spread over his anterior collazo the past few days. He has presented to outside ED's multiple times where DVT ultrasound suggested hematoma was the likely culprit. 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 The etiology of the DVTs remains unknown. Patient currently complains of pain to either side of his Achilles tendon as well as in his calf and anterior collazo. Patient denies numbness or tingling. Patient denies any traumatic events to right lower extremity. Patient stopped taking Lovenox on 11/17. He currently uses crutches to ambulate. PAST MEDICAL HISTORY Diagnosis Date Cardiomyopathy (HCC) CHF (congestive heart failure) (HCC) Diabetes (HCC) DVT (deep venous thrombosis) (HCC) PE Esophageal reflux 09/18/2005 Intervertebral cervical disc disorder with myelopathy, cervical region 2000 Left arm weakness resolved with PT PAST SURGICAL HISTORY Procedure Laterality Date LASIK Bilateral 06/2016 LASIK Bilateral 12/2005 OPTX ANKLE DISLOCATION W/REPAIR/INT/XTRNL FIXJ 1992 ORIF Ankle, left Allergies: Chocolate, Codeine, and Definity [Perflutren Lipid Microspheres] No current facility-administered medications for this encounter. Current Outpatient Medications Medication Sig omega-3 fatty acids (FISH OIL CONCENTRATE) 1,000 mg cap Take 2 g by mouth once daily. enoxaparin sodium (LOVENOX SUBCUTANEOUS) Inject 135 mg subcutaneously every 12 hours. spironolactone (ALDACTONE) 25 mg tablet Take 25 mg by mouth once daily. carvedilol (COREG) 25 mg tablet Take two tablets by mouth twice daily. empagliflozin (JARDIANCE) 10 mg tablet Take 10 mg by mouth once daily. sacubitril-valsartan (ENTRESTO) 97-103 mg tablet Take 1 tablet by mouth twice daily. citalopram (CELEXA) 20 mg tablet Take 20 mg by mouth once daily. cholecalciferol, vitamin D3, (VITAMIN D3 ORAL) Take 5,000 Units by mouth once daily. furosemide (LASIX) 40 mg tablet Take 40 mg by mouth twice daily as needed. dulaglutide (TRULICITY) 1.5 mg/0.5 mL Inject 1.5 mg subcutaneously one time a week. magnesium oxide (MAG-OX) 400 mg (241.3 mg magnesium) tablet Take 400 mg by mouth once daily. metHIMazole (TAPAZOLE) 5 mg tablet Take 7 mg by mouth once daily. fluticasone propionate(FLONASE 50 MCG/ACTUATION NASAL SPRAY) One puff per nostril before lying down for bed. p-ephed hcl/fexofenadine hcl(MICHELLE-D 12 HOUR 60 MG-120 MG TAB) Take one(1) tablet twice daily as need for allergies THERAPEUTIC MULTIVITAMIN TAB Take 1 tablet by mouth once daily. FAMILY HISTORY Problem Relation Age of Onset Diabetes Mother Hypertension Mother Hypertension Father Lipids Father Diabetes Father Negative for family history of bleeding and clotting disorders. Social History Tobacco Use Smoking status: Former Current packs/day: 0.00 Average packs/day: 1.5 packs/day for 6.0 years (9.0 ttl pk-yrs) Types: Cigarettes Start date: 09/19/1995 Quit date: 09/18/2001 Years since quittin.1 Smokeless tobacco: Former Types: Chew Quit date: 05/27/2008 Vaping Use Vaping status: Never Used Substance Use Topics Alcohol use: Yes Comment: social Drug use: No ROS: 10 pt ROS neg except in HPI O: Vitals: BP 120/63 Pulse 89 Temp 36.7 ?C (98.1 ?F) (Oral) Resp 20 Wt 133.8 kg (295 lb) SpO2 96% BMI 37.62 kg/m? Physical exam: General: Alert, answers all questions appropriately, no acute distress. Cooperative throughout entire interview and exam Right lower extremity: Ecchymosis to anterior collazo, swelling diffusely to right calf that spreads distally around Achilles tendon and to medial and lateral malleoli. Decreased range of motion right ankle. Tender to palpation posteriorly along Achilles, TTP to posterior calf, TTP to medial collazo. Alignment normal. No gross deformitie (more content not included)... Normal [facility] ED NOTEon 11-20-2024 ED NOTE HNO ID: [id number] Author: LUIS ENRIQUE VILLASENOR RN Service: ? Author Type: Registered Nurse Type: ED Notes Filed: 11/20/2024 16:05 Note Text: US notified Normal [facility] ED PROV NOTEon 11-20-2024 ED PROV NOTE HNO ID: [id number] Author: JUANI BORDEN DO Service: Emergency Medicine Author Type: Physician Type: ED Provider Notes Filed: 11/20/2024 22:34 Note Text: ED Provider Note Patient Name: Katrina Melvin : 1975 SERVICE DATE: 11/20/24 History Patient presents with: Leg Pain: Pt arrives to triage c/o RLE pain. Pt on blood thinners currently for PE. Recent shallow dive at a pool. Pt had neg US thurs and SAT. sent him in due to inability to find pulse to right foot Patient presenting for concerns of right lower extremity pain. Patient states that she is chronically on Lovenox for history of DVTs. Went scuba diving in the pool, deepest depth of 15 feet and states had spontaneous onset of some pain and swelling in the posterior right leg primarily in the calf. States he had some bruising that started soon after which has progressed and spread down the leg as opposed to. States he went to outside emergency department twice, last and last Wednesday and states he had DVT ultrasound done both times and was told he has likely hematoma but was not told of any significant difference between days however throughout this time and through today, he has had worsening pain of the right calf with more limited range of motion at the right ankle and is now unable to ambulate/weight-bear on this leg and has to use crutches. PAST MEDICAL HISTORY Diagnosis Date Cardiomyopathy ([facility]) CHF (congestive heart failure) ([facility]) Diabetes ([facility]) DVT (deep venous thrombosis) ([facility]) PE Esophageal reflux 09/18/2005 Intervertebral cervical disc disorder with myelopathy, cervical region 2000 Left arm weakness resolved with PT PAST SURGICAL HISTORY Procedure Laterality Date LASIK Bilateral 06/2016 LASIK Bilateral 12/2005 OPTX ANKLE DISLOCATION W/REPAIR/INT/XTRNL FIXJ 1992 ORIF Ankle, left FAMILY HISTORY Problem Relation Age of Onset Diabetes Mother Hypertension Mother Hypertension Father Lipids Father Diabetes Father Social History Tobacco Use Smoking status: Former Current packs/day: 0.00 Average packs/day: 1.5 packs/day for 6.0 years (9.0 ttl pk-yrs) Types: Cigarettes Start date: 09/19/1995 Quit date: 09/18/2001 Years since quittin.1 Smokeless tobacco: Former Types: Chew Quit date: 05/27/2008 Vaping Use Vaping status: Never Used Substance and Sexual Activity Alcohol use: Yes Comment: social Drug use: No Sexual activity: Not on file ALLERGIES Allergen Reactions Chocolate GI Upset Codeine Hives Definity [Perflutre* Other: See Comments Severe back pain Review of Systems Constitutional: Negative for activity change, fatigue and fever. HENT: Negative for congestion, rhinorrhea and sore throat. Eyes: Negative for photophobia, discharge and visual disturbance. Respiratory: Negative for cough, shortness of breath and wheezing. Cardiovascular: Negative for chest pain, palpitations and leg swelling. Gastrointestinal: Negative for abdominal pain, diarrhea, nausea and vomiting. Endocrine: Negative for cold intolerance, heat intolerance and polydipsia. Genitourinary: Negative for difficulty urinating, dysuria and urgency. Musculoskeletal: Positive for myalgias. Negative for arthralgias, back pain and neck pain. Skin: Negative for pallor, rash and wound. Neurological: Negative for syncope, numbness and headaches. Physical Exam Vitals [11/20/24 1510] BP Pulse Temp Temp src Resp SpO2 Weight Height 128/95 88 36.7 ?C (98.1 ?F) Oral 22 98 % 133.8 kg (295 lb) -- Physical Exam Vitals and nursing note reviewed. Constitutional: General: He is not in acute distress. Appearance: Normal appearance. He is not ill-appearing or toxic-appearing. HENT: Head: Normocephalic and atraumatic. Nose: Nose normal. Eyes: General: No scleral icterus. Extraocular Movements: Extraocular movements intact. Conjunctiva/sclera: Conjunctivae normal. Cardiovascular: Rate and Rhythm: Normal rate and regular rhythm. Pulmonary: Effort: Pulmonary effort is normal. No respiratory distress. Abdominal: General: Abdomen is flat. There is no distension. Musculoskeletal: General: Swelling and tenderness present. Cervical back: Normal range of motion and neck supple. No rigidity. Right lower leg: No edema. Left lower leg: No edema. Comments: Older appearing bruising noted throughout the right lower extremity primarily on the anterior medial aspect. No obvious popliteal fossa swelling but there is tenderness in this region. Significant tenderness throughout palpation of the right calf. Compartments overall soft. Active range of motion of the right ankle limited in dorsiflexion and plantarflexion to approximately 15 to 20 degrees each. Worsened pain with passive dorsiflexion reproduced in the calf. Distal pulses slightly decreased in the right lower extremity compared to the left but still palpable +1 PT and DP. Cap refill proximally 2 to 3 (more content not included)... Normal [facility] ED Triage Noteon 11-20-2024 ED Triage Note HNO ID: [id number] Author: RAMESH QIU APRN.SARANYA Service: Emergency Medicine Author Type: Nurse Practitioner Type: ED Triage Notes Filed: 11/20/2024 15:59 Note Text: ED TRIAGE PROVIDER NOTE Patient Name: Katrina Melvin Service Date: 11/20/24 BRIEF HPI: This is a 49 year old male who presents to the ED with: RLE pain and swelling worsening over the last week. He was dx with a hematoma last week after diving (patient is currently on blood thinners for hx of DVT AND PE). He was sent in today because his PCP was unable to obtain a pulse in his right foot BRIEF EXAM: Alert and oriented, answering all questions appropriately. Able to obtain pulses with doppler. Dr. Borden also evaluated the patient quickly, as patient was concerned for compartment syndrome. Patient's calf is firm, but there a known hematoma. 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 Grayscale with compression maneuvers of the peroneal and posterior tibial veins was performed. The right great and small saphenous veins were evaluated at their insertion to the deep system. The contralateral common femoral vein was imaged for comparison. Images were obtained and stored in a permanent archive. MQ: [id number] COMPARISON: None RESULT: RIGHT LOWER EXTREMITY PROXIMAL DEEP VEINS Distal External Iliac, Common Femoral and proximal Profunda Veins: Compression: Normal Doppler: Normal, spontaneous respirophasic flow. Normal response to augmentation. Femoral vein: Compression: Normal Doppler: Normal, spontaneous flow. Normal response to augmentation. Popliteal vein: Compression: Normal Doppler: Normal, spontaneous flow. Normal response to augmentation. CALF DEEP VEINS Peroneal veins: Normal compression. Posterior tibial veins: Normal compression. Gastrocnemius and Soleal veins: Not imaged. SUPERFICIAL VEINS Great saphenous: Patent and compressible at insertion into common femoral vein; not otherwise assessed. Small Saphenous: Patent and compressible in the proximal calf, not otherwise assessed. 6.4 x 3.7 x 11.5 cm complex echogenic region in the RIGHT calf without compressibility or color flow. There is mild through transmission. Findings may represent acute hemorrhage within a popliteal/Colbert's cyst. Attention on follow-up. LEFT LOWER EXTREMITY (FOR COMPARISON) Common Femoral Vein: Compression: Normal Doppler: Normal, spontaneous respirophasic flow. Normal response to augmentation. IMPRESSION: Negative study for proximal DVT in the right lower extremity. Negative study for calf DVT in the right lower extremity. Negative study for superficial thrombophlebitis in the imaged segments of the right lower extremity. Complex cystic mass within the RIGHT popliteal fossa without color flow most likely represents hemorrhaged popliteal/Colbert's cyst. 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: [facility] Transcribe Date/Time: Nov 20 2024 6:41P Dictated by : KEVIN RICE MD This examination was interpreted and the report reviewed and electronically signed by: KEVIN RICE MD on Nov 20 2024 6:44PM EST [id number] Normal [facility] XR TIBIA FIBULA 2V AP/LAT RT on 11-20-2024 XR TIBIA FIBULA 2V AP/LAT RT * * *Final Report* * * DATE OF EXAM: Nov 20 2024 8:40PM [id number] [id number] - XR TIBIA FIBULA 2V AP/LAT RT / PROCEDURE REASON: Fracture / Dislocation * * * * Physician Interpretation * * * * EXAMINATION: XR TIBIA FIBULA 2V AP/LAT RT HISTORY: C/O RIGHT LOWER LEG SWELLING Fracture / Dislocation. COMPARISON: None RESULT: See Impression. IMPRESSION: Diffuse soft tissue swelling. No acute fracture or malalignment. Plantar calcaneal spur. Heterotopic ossification surrounding the proximal tibia fibula. 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: [employer] Transcribe Date/Time: Nov 20 2024 9:27P Dictated by : REYNALDO CAMACHO MD This examination was interpreted and the report reviewed and electronically signed by: REYNALDO CAMACHO MD on Nov 20 2024 9:27PM EST [id number] Normal [facility] Absolute lymphocyte countOrd ered By: Nicko Robbins on 11-18-2024 Lymphocytes Auto (Unsp spec) [#/Vol] 1.70 10*3/uL 0.83-4.51 [facility] Absolute neutrophil countOrd ered By: Nicko Robbins on 11-18-2024 Neutrophils (Bld) [#/Vol] 4.9 10*3/uL 2.0-7.7 [facility] Activated partial thrombopla stin time (aPTT) in platelet poor plasma by coagulation aOrdered By: Nicko Robbins on 11-18-2024 aPTT Coag (PPP) [Time] 26.3 s 24.1-36.2 [facility] Anion gap in Serum or Plasma Ordered By: [facility] on 11-18-2024 Anion gap [Moles/Vol] 12 mmol/L 11-02 [facility] Automated lymphocyte count a s percentage of total leukocytesOrdered By: Trufant Rosendo on 11-18-2024 Lymphocytes/100 WBC Auto (Unsp spec) 23.2 % [facility] BUN/creatinine ratioOrdered By: [facility] HospitalveronicaQuynhKary on 11-18-2024 Urea nitrogen/Creatinine [Mass ratio] 18.8 mg/mg - [facility] Basic Metabolic Profile (BMP )on 11-18-2024 BUN/CRE 18.8 RATIO Normal - [facility] Comment on above: Performed By: #### L 500.2500, L500.3400, L100.0100, L300.3900, L501.9985, L300.4310, L3300.0700 #### [facility] [address] [place], [address] Calcium [Mass/Vol] 9.5 mg/dL Normal 7.6-11.0 [facility] Comment on above: Performed By: #### L 500.2500, L500.3400, L100.0100, L300.3900, L501.9985, L300.4310, L3300.0700 #### [facility] [address] [place], [address] Chloride [Moles/Vol] 99 mmol/L Normal 98-108 [facility] Comment on above: Performed By: #### L 500.2500, L500.3400, L100.0100, L300.3900, L501.9985, L300.4310, L3300.0700 #### [facility] [address] [place], [address] CO2 [Moles/Vol] 25.6 mmol/L Normal 21.0-32.0 [facility] Comment on above: Performed By: #### L 500.2500, L500.3400, L100.0100, L300.3900, L501.9985, L300.4310, L3300.0700 #### [facility] [address] [place], [address] Creatinine [Mass/Vol] 0.65 mg/dL Low 0.70-1.20 [facility] Comment on above: Performed By: #### L 500.2500, L500.3400, L100.0100, L300.3900, L501.9985, L300.4310, L3300.0700 #### [facility] [address] [place], [address] ECRCL 204.28 ml/min Normal 50-250 [facility] Comment on above: Performed By: #### L 500.2500, L500.3400, L100.0100, L300.3900, L501.9985, L300.4310, L3300.0700 #### [facility] [address] [place], [address] GAP 12 Normal 5-15 [facility] Comment on above: Performed By: #### L 500.2500, L500.3400, L100.0100, L300.3900, L501.9985, L300.4310, L3300.0700 #### [facility] [address] [place], [address] GFR/1.73 sq M.predicted among non-blacks MDRD (S/P/Bld) [Vol rate/Area] 116 mL/min/{1.73_m2} Normal >60 [facility] Comment on above: Result Comment: mL/m in/1.73m2 CKD-EPI Creatinine Equation (2020) Performed By: #### L 500.2500, L500.3400, L100.0100, L300.3900, L501.9985, L300.4310, L3300.0700 #### [facility] [address] [place], [address] Glucose [Mass/Vol] 197 mg/dL High 70-99 [facility] Comment on above: Performed By: #### L 500.2500, L500.3400, L100.0100, L300.3900, L501.9985, L300.4310, L3300.0700 #### [facility] [address] [place], [address] Potassium [Moles/Vol] 4.8 mmol/L Normal 3.3-5.1 [facility] Comment on above: Performed By: #### L 500.2500, L500.3400, L100.0100, L300.3900, L501.9985, L300.4310, L3300.0700 #### [facility] [address] [place], [address] Sodium [Moles/Vol] 137 mmol/L Normal 133-145 [facility] Comment on above: Performed By: #### L 500.2500, L500.3400, L100.0100, L300.3900, L501.9985, L300.4310, L3300.0700 #### [facility] [address] [place], [address] Urea nitrogen [Mass/Vol] 12 mg/dL Normal 4-19 [facility] Comment on above: Performed By: #### L 500.2500, L500.3400, L100.0100, L300.3900, L501.9985, L300.4310, L3300.0700 #### [facility] [address] [facility] [place], [address] Basophil percentageOrdered B y: Nicko Robbins on 11-18-2024 Basophils/100 WBC (Bld) 0.3 % 0-1 [facility] CBC W/Diff, Automatedon 10-21 Absolute Lymph 1.70 X10 3/uL Normal 0.83-4.51 [facility] Comment on above: Performed By: #### L 500.2500, L500.3400, L100.0100, L300.3900, L501.9985, L300.4310, L3300.0700 #### [facility] [address] [facility] [place], [address] Absolute Neut 4.9 X10 3/uL Normal 2.0-7.7 [facility] Comment on above: Performed By: #### L 500.2500, L500.3400, L100.0100, L300.3900, L501.9985, L300.4310, L3300.0700 #### [facility] [address] [facility] [place], [address] Basophils/100 WBC (Bld) 0.3 % Normal 0-1 [facility] Comment on above: Performed By: #### L 500.2500, L500.3400, L100.0100, L300.3900, L501.9985, L300.4310, L3300.0700 #### [facility] [address] [place], [address] Eosinophils/100 WBC (Bld) 1.1 % Normal 0-5 [facility] Comment on above: Performed By: #### L 500.2500, L500.3400, L100.0100, L300.3900, L501.9985, L300.4310, L3300.0700 #### [facility] [address] [place], [address] Erythrocyte distribution width (RBC) [Ratio] 13.5 % Normal 11.6-14.6 [facility] Comment on above: Performed By: #### L 500.2500, L500.3400, L100.0100, L300.3900, L501.9985, L300.4310, L3300.0700 #### [facility] [address] [place], [address] Hematocrit (Bld) [Volume fraction] 42.6 % Normal 40-54 [facility] Comment on above: Performed By: #### L 500.2500, L500.3400, L100.0100, L300.3900, L501.9985, L300.4310, L3300.0700 #### [facility] [address] [place], [address] Hemoglobin (Bld) [Mass/Vol] 14.6 g/dL Normal 13.0-16.5 [facility] Comment on above: Performed By: #### L 500.2500, L500.3400, L100.0100, L300.3900, L501.9985, L300.4310, L3300.0700 #### [facility] [address] [place], [address] IG% 0.400 Normal 0.0-0.9 [facility] Comment on above: Result Comment: IG% - Immature Granulocytes (promyelocytes, myelocytes and metamyelocytes) > 1% indicates that a LEFT SHIFT is Present. Performed By: #### L 500.2500, L500.3400, L100.0100, L300.3900, L501.9985, L300.4310, L3300.0700 #### [facility] [address] [place], [address] Lymphocytes/100 WBC (Bld) 23.2 % Normal 19-41 [facility] Comment on above: Performed By: #### L 500.2500, L500.3400, L100.0100, L300.3900, L501.9985, L300.4310, L3300.0700 #### [facility] [address] [place], [address] MCH (RBC) [Entitic mass] 30.9 pg Normal 27.0-32.0 [facility] Comment on above: Performed By: #### L 500.2500, L500.3400, L100.0100, L300.3900, L501.9985, L300.4310, L3300.0700 #### [facility] [address] [place], [address] MCHC (RBC) [Mass/Vol] 34.3 g/dL Normal 32-36 [facility] Comment on above: Performed By: #### L 500.2500, L500.3400, L100.0100, L300.3900, L501.9985, L300.4310, L3300.0700 #### [facility] [address] [place], [address] MCV (RBC) [Entitic vol] 90.3 fL Normal 80-94 [facility] Comment on above: Performed By: #### L 500.2500, L500.3400, L100.0100, L300.3900, L501.9985, L300.4310, L3300.0700 #### [facility] [address] [place], [address] Monocytes/100 WBC (Bld) 7.9 % Normal 0-10 [facility] Comment on above: Performed By: #### L 500.2500, L500.3400, L100.0100, L300.3900, L501.9985, L300.4310, L3300.0700 #### [facility] [address] [place], [address] Neutrophils/100 WBC (Bld) 67.1 % Normal 47-70 [facility] Comment on above: Performed By: #### L 500.2500, L500.3400, L100.0100, L300.3900, L501.9985, L300.4310, L3300.0700 #### [facility] Laboratory [address] [place], [address] Nucleated RBC (Bld) [#/Vol] 0 10*3/uL Normal 0-5 [facility] Comment on above: Performed By: #### L 500.2500, L500.3400, L100.0100, L300.3900, L501.9985, L300.4310, L3300.0700 #### [facility] [address] [place], [address] Platelet mean volume (Bld) [Entitic vol] 9.2 fL Normal 6.2-12.0 [facility] Comment on above: Performed By: #### L 500.2500, L500.3400, L100.0100, L300.3900, L501.9985, L300.4310, L3300.0700 #### [facility] [address] [place], [address] Platelets (Bld) [#/Vol] 244 10*3/uL Normal 150-450 [facility] Comment on above: Performed By: #### L 500.2500, L500.3400, L100.0100, L300.3900, L501.9985, L300.4310, L3300.0700 #### [facility] [address] [place], [address] RBC (Bld) [#/Vol] 4.72 10*6/uL Normal 4.6-6.2 [facility] Comment on above: Performed By: #### L 500.2500, L500.3400, L100.0100, L300.3900, L501.9985, L300.4310, L3300.0700 #### [facility] [address] [place], [address] RDW SD 45.0 fl High 35.1-43.9 [facility] Comment on above: Performed By: #### L 500.2500, L500.3400, L100.0100, L300.3900, L501.9985, L300.4310, L3300.0700 #### [facility] [address] [place], [address] WBC (Bld) [#/Vol] 7.3 10*3/uL Normal 4.4-11.0 [facility] Comment on above: Performed By: #### L 500.2500, L500.3400, L100.0100, L300.3900, L501.9985, L300.4310, L3300.0700 #### [facility] [address] [place], [address] Carbon dioxide, total [Moles /volume] in Central venous bloodOrdered By: Nicko Robbins on 11-18-2024 CO2 [Moles/Vol] 25.6 mmol/L 21.0-32.0 [facility] Chloride assayOrdered By: Yazan Robbins on 11-18-2024 Chloride [Moles/Vol] 99 mmol/L 98-108 [facility] Emergency Department Summary on 11-18-2024 Emergency Department Summary [facility] Medical Records Department [address] [place] [address] Emergency Department Summary 11/18/24 MR#: [id number] Acct: [id number] Name: KATRINA MELVIN Rep #: [id number] : 1975 49 From: Nicko Robbins DO PCP: Dr. Jeniffer White, Status:REG ER Location: ED HPI History of Present Illness Chief Complaint: Lower Extremity Injury Narrative Narrative: Chief complaint and HPI: Right calf tenderness and bruising. History taken by patient, , and medical record. Patient is a 49-year-old male with past medical history of DVT, PE on Lovenox 130 mg twice daily, DM2, HTN who presents for evaluation of right calf pain and ecchymosis. Patient was seen for similar complaint on 11/16. Had a venous duplex ultrasound performed at that time that was negative for DVT however nonvascular hypoechoic structure noted in the right medial calf, seroma versus hematoma. Patient states that the bruising has become more significant with pain which is why he presents. Patient denies any significant injury or trauma. He states previously he had bacteremia in that extremity due to a wound/blister on his foot. Currently denies any fever, chills, wounds. Review of systems: See HPI Medications: As listed on the chart Allergies: As listed on the chart PFSH: Per chart Vital signs: As listed on the chart. Reviewed. Physical exam: Gen: A O x3, NAD Head: Normocephalic, atraumatic Eyes: No sclera icterus, conjunctiva clear ENT: Moist mucous membranes Neck: Trachea midline, full range of motion CV: Regular rate Resp: Nonlabored respiration GI: Abd soft, non-distended, non-tender, no r/r/g Musc: Right lower extremity with minimal swelling in the right calf compared to the left, right calf has healing ecchymosis as it is more yellow in color, calf is tender to palpation but compartments are soft, femoral/DP/PT pulse +2, strength +5/5 bilaterally although has decreased range of motion secondary to the calf pain, achilles intact without tenderness, no erythema/warmth/celluliti s/wounds, good capillary refill, full range of motion of all joints without erythema/warmth/tendernes s Neuro: Alert, oriented, grossly intact, sensation intact Psych: Cooperative, appropriate mood and affect [facility] Medical History Barretts esophagus Fatty liver Thyroid disease Arthritis DVT (deep venous thrombosis) Injury of back Injury of head and neck History of GI bleed Former smoker Shortness of breath on exertion Leg cramps History of edema History of echocardiogram History of stress test Cardiology follow-up encounter History of CHF (congestive heart failure) Rotator cuff arthropathy of left shoulder History of TIA (transient ischemic attack) Diabetes mellitus Hemorrhage of anus and rectum Idiopathic cardiomyopathy Thyroid nodule Essential (primary) hypertension 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 Type 2 diabetes mellitus Medial meniscus tear Diastolic dysfunction with heart failure DVT of leg (deep venous thrombosis) Contusion of left knee, initial encounter Other internal derangements of left knee Pain of left knee after injury Other tear of lateral meniscus, current injury, left knee, subsequent encounter Other tear of medial meniscus, current injury, left knee, subsequent encounter Pulmonary embolism (07/2016) Home Medications ???Medication ???Instructions ???Recorded ???Last Taken ???Type enoxaparin 150 mg/mL subcutaneous 135 mg subcut Q12@0600,1800 12/1011/16/24 History syringe cholecalciferol (vitamin D3) 125 5,000 unit PO DAILY 04/24/1811/18 History mcg (5,000 unit) capsule spironolactone 25 mg tablet 25 mg PO DAILY #90 tabs 09/08/18 0 11/18/24 Rx empagliflozin 10 mg tablet 10 mg PO DAILY 02/19/22 11/18/24 H istory (Jardiance) sacubitril 97 mg-valsartan 103 mg 1 tab PO BID 07/06/22 11/18/24 Hi story tablet (Entresto) furosemide 40 mg tablet (Lasix) 40 mg PO TID 04/30/23 11/18/24 His tory methimazole 5 mg tablet 5 mg PO DAILY 10/24/24 11/18/24 Hi story potassium chloride 20 mEq 20 meq PO BID 10/24/24 11/18/24 Hi story tablet,extended release semaglutide 2 mg/dose (8 mg/3 mL) 2 mg subcut QWEEK 10/24/24 History subcutaneous pen injector (Ozempic) carvedilol 25 mg tablet 50 mg PO BID 11/18/24 11/18/24 His tory insulin glargine 100 unit/mL (3 40 unit subcut DAILY 11/18/2410/21 History mL) subcutaneous pen (Lantus Solostar U-100 Insulin) pantoprazole 40 mg tablet,delayed 40 mg PO Q12H 11/18/24 11/18/24 H istory release Allergy/AdvReac Type Severity Reaction Status Date / Time codeine Allergy Other Verified 11/18/24 09:49 metformin Allergy Abd Verified 11/18/24 (more content not included)... Normal [facility] Eosinophil percentageOrdered By: Nicko Robbins on 11-18-2024 Eosinophils/100 WBC (Bld) 1.1 % 0-5 [facility] Erythrocyte distribution wid th ratioOrdered By: Nicko Robbins on 11-18-2024 Erythrocyte distribution width (RBC) [Ratio] 13.5 % 11.6-14.6 [facility] Erythrocyte distribution wid th standard deviationOrdered By: Nicko Preston on 11-18-2024 Erythrocyte distribution width (RBC) [Ratio] 45.0 fl High 35.1-43.9 [facility] Extremity Lower without Cont raon 11-18-2024 Extremity Lower without Contra [facility] Imaging Services [address] [place] [address] Extremity Lower without Contra MR#: [id number] Acct: [id number] Name: KATRINA MELVIN Rep #: [id number] : 1975 M 49 From: Jeniffer Bush MD PCP: Dr. Jeniffer White, Status: REG ER Study: Extremity Lower without Contra Date of Exam: 0 11/18/24 Exam# [id number] Ordering Dr: Nicko Robbins DO EXAM: CT Extremity Lower Contra Without Intravenous Contrast CLINICAL INDICATION: PAIN, US CONCERNING FOR HEMATOMA TECHNIQUE: Axial computed tomography images of the extremity lower contra without intravenous contrast. This CT exam was performed using one or more of the following dose reduction techniques: automated exposure control, adjustment of the mA and/or kV according to patient size, and/or use of iterative reconstruction technique. COMPARISON: No relevant prior studies available. FINDINGS: No acute fracture. Intramuscular hematoma of the medial aspect of the gastrocnemius measuring 6.5 x 2[address]/Extremity Lower without Contra IMPRESSION: 1. No acute fracture. 2. Intramuscular hematoma of the medial aspect of the gastrocnemius measuring 6.5 x 2.8 x 9.7 cm. Reading Location: [facility] CC: Dr. Nicko Robbins DO; Dr. Jeniffer White DO 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: Signed Normal [facility] Glomerular filtration rate ( GFR) estimation/1.73 sq m using serum, plasma, or whole bOrdered By: Nicko Robbins on 11-18-2024 GFR/1.73 sq M.predicted among non-blacks MDRD (S/P/Bld) [Vol rate/Area] 116 mL/min/{1.73_m2} >60 [facility] Comment on above: mL/min/1.73m2 CKD-EP I Creatinine Equation (2020) Hematocrit Auto (Bld) [Volum e fraction]Ordered By: Nicko Robbins on 11-18-2024 Hematocrit (Bld) [Volume fraction] 42.6 % 40-54 [facility] Hemoglobin measurementOrdere d By: Nicko Robbins on 11-18-2024 Hemoglobin (Bld) [Mass/Vol] 14.6 g/dL 13.0-16.5 [facility] Immature granulocytes/100 WB C Auto (Bld)Ordered By: Nicko Robbins on 11-18-2024 Immature granulocytes/100 WBC (Bld) 0.400 % 0.0-0.9 [facility] Comment on above: IG% - Immature Granu locytes (promyelocytes, myelocytes and metamyelocytes) > 1% indicates that a LEFT SHIFT is Present. International normalized rat io (INR) calculationOrdered By: Nicko Robbins on 11-18-2024 INR Coag (Bld) [Relative time] 1.0 {INR} [facility] MCV (mean corpuscular volume ) determinationOrdered By: Nicko Robbins on 11-18-2024 MCV (RBC) [Entitic vol] 90.3 fL 80-94 [facility] Mean corpuscular hemoglobin (MCH) determinationOrdered By: Nicko Robbins on 11-18-2024 MCH (RBC) [Entitic mass] 30.9 pg 27.0-32.0 [facility] Mean corpuscular hemoglobin concentration (MCHC) determinationOrdered By: Nicko Robbins on 11-18-2024 MCHC (RBC) [Mass/Vol] 34.3 g/dL 32-36 [facility] Mean platelet volume determi nationOrdered By: Nicko Robbins on 11-18-2024 Platelet mean volume (Bld) [Entitic vol] 9.2 fL 6.2-12.0 [facility] Monocyte percentageOrdered B y: Nicko Robbins on 11-18-2024 Monocytes/100 WBC (Bld) 7.9 % 0-10 [facility] Neutrophil percentageOrdered By: Nicko Rosendo on 11-18-2024 Neutrophils/100 WBC (Bld) 67.1 % 47-70 [facility] Nucleated red blood cell per centageOrdered By: Nicko Rosendo on 11-18-2024 Nucleated RBC/100 WBC (Bld) [Ratio] 0 % 0-5 [facility] Partial Thromboplast Timeon 11-18-2024 aPTT Coag (Bld) [Time] 26.3 s Normal 24.1-36.2 [facility] Comment on above: Performed By: #### L 500.2500, L500.3400, L100.0100, L300.3900, L501.9985, L300.4310, L3300.0700 #### [facility] Laboratory [address] [place] [address], [address] Platelet countOrdered By: Yazan Robbins on 11-18-2024 Platelets (Bld) [#/Vol] 244 10*3/uL 150-450 [facility] Potassium measurement (mass/ volume)Ordered By: Nicko Robbins on 11-18-2024 Potassium (Unsp spec) [Mass/Vol] 4.8 mmol/L 3.3-5.1 [facility] Prothrombin Time w/INRon INR Coag (PPP) [Relative time] 1.0 {INR} Normal [facility] Comment on above: Performed By: #### L 500.2500, L500.3400, L100.0100, L300.3900, L501.9985, L300.4310, L3300.0700 #### [facility] [address] [place], [place], [id number] ([phone] PT Coag (PPP) [Time] 12.9 s Normal 11.7-14.9 [facility] Comment on above: Performed By: #### L 500.2500, L500.3400, L100.0100, L300.3900, L501.9985, L300.4310, L3300.0700 #### [facility] [address] [facility] [place], [place], [phone] Prothrombin timeOrdered By: Nicko Robbins on 11-18-2024 PT Coag (PPP) [Time] 12.9 s 11.7-14.9 [facility] RBC Auto (Bld) [#/Vol]Ordere d By: Nicko Robbins on 11-18-2024 RBC (Bld) [#/Vol] 4.72 10*6/uL 4.6-6.2 [facility] Serum creatinine measurement (mass/volume)Ordered By: Nicko Robbins on 11-18-2024 Creatinine [Mass/Vol] 0.65 mg/dL Low 0.70-1.20 [facility] Serum glucose measurement (m ass/volume)Ordered By: Nicko Robbins on 11-18-2024 Glucose [Mass/Vol] 197 mg/dL High 70-99 [facility] Serum or plasma calcium paty urement (mass/volume)Ordered By: Nicko Preston on 11-18-2024 Calcium [Mass/Vol] 9.5 mg/dL 7.6-11.0 [facility] Serum or plasma urea nitroge n measurement (mass/volume)Ordered By: Nicko Robbins on 11-18-2024 Urea nitrogen [Mass/Vol] 12 mg/dL 4-19 [facility] Sodium levelOrdered By: Faraz Robbins on 11-18-2024 Sodium [Moles/Vol] 137 mmol/L 133-145 [facility] Venous Duplex US, Unilateral on 11-18-2024 Venous Duplex US, Unilateral [facility] Cardiovascular Services [address] [place] [address] Venous Duplex US, Unilateral 11/18/24 1135 MR#: [id number] Acct: [id number] Name: KATRINA MELVIN Rep #: [id number] : 1975 49 From: Marcus Gabriel MD Attending Dr: Status: REG ER Ordering Dr: Nicko Robbins DO Date: 5 Location: ED Sex: M C Admitted: Reason For Study Reason For Study: Pain RIGHT LEFT GSV is normal. CFV is compressible, spontaneous, phasic, competent, CFV is compressible, spontaneous, phasic, competent and demonstrates normal augmentation. and demonstrates normal augmentation. FV is compressible, spontaneous, phasic, competent and demonstrates normal augmentation. POP V is compressible, spontaneous, phasic, competent and demonstrates normal augmentation. T/P Trunk is compressible. PTV is compressible. RT PerV is compressible. Nonvascularized structure noted in the medial calf measuring 11.66 x 3.0 cm. Procedure This is a venous duplex using B-mode, color flow and spectral Doppler. Exam performed portable in ED. A preliminary report was called and/or faxed to Nicko Robbins DO. VL/Venous Duplex US, Unilateral Interpretation Summary Deep veins of the right lower extremity are patent and compressible segmentally. There is no evidence of right lower extremity deep vein thrombosis. Valvular competence appears intact within the proximal deep venous system on the right . The right great saphenous vein appears patent and compressible segmentally. A non-vascular structure with mixed echogenicity is noted in the right medial calf, measuring 11.66 cm x 3.0 cm. This probably represents a hematoma or seroma. Clinical correlation is advised. There has been no significant change since a prior study on 11/16/24. ___ Ordering Physician: Nicko Robbins Referring Physician: Jeniffer White Performed By: Francy Kraus RVT 11/18/24 1304 Date Marcus Gabriel MD CC: Dr. Nicko Robbins DO; Dr. Jeniffer White DO Date Dictated: 11/18/24 1135 Date Transcribed: 11/18/24 1304 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: Signed Normal [facility] Venous duplex ultrasound rep ortOrdered By: Marcus Gabriel on 11-18-2024 US Vein [facility] Cardiovascular Services [address] [place] [address] Venous Duplex US, Unilateral 11/18/24 1135 MR#: [id number] Acct: [id number] Name: KATRINA MELVIN Rep #:[id number] : 1975 49 From: Marcus Gabriel MD Attending Dr: Status: REG E R Ordering Dr: Nicko Robbins DO D ate: 11/18/24 Location: ED Sex: M C Admitted: Reason For Study Reason For Study: Pain RIGHT LEFT GSV is normal. CFV is compressible, spontaneous, phasic, competent, CFV is compressible, spontaneous, phasic, competent and demonstrates normal augmentation. and demonstrates normal augmentation. FV is compressible, spontaneous, phasic, competent and demonstrates normal augmentation. POP V is compressible, spontaneous, phasic, competent and demonstrates normal augmentation. T/P Trunk is compressible. PTV is compressible. RT PerV is compressible. Nonvascularized structure noted in the medial calf measuring 11.66 x 3.0 cm. Procedure This is a venous duplex using B-mode, color flow and spectral Doppler. Exam performed portable in ED. A preliminary report was called and/or faxed to Nicko Robbins DO. VL/Venous Duplex US, Unilateral Interpretation Summary Deep veins of the right lower extremity are patent and compressible segmentally.There is no evidence of right lower extremity deep vein thrombosis. Valvular competence appears intact within the proximal deep venous system on the right . The right great saphenous vein appears patent and compressible segmentally. A non-vascular structure with mixed echogenicity is noted in the right medial calf, measuring 11.66 cm x 3.0 cm. This probably represents a hematoma or seroma. Clinical correlation is advised. There has been no significant change since a prior study on 11/16/24. ___ Ordering Physician: Nicko Robbins Referring Physician: Jeniffer White Performed By: Francy Kraus RVT 11/18/24 1304 Date _ Marcus Gabriel MD CC: Dr. Nicko Robbins DO; Dr. Jeniffer White DO ~ Date Dictated: 11/18/24 1135 Date Transcribed: 11/18/24 1304 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: Signed [facility] Other Phone: White blood cell (WBC) count Ordered By: Nicko Robbins on 11-18-2024 WBC (Bld) [#/Vol] 7.3 10*3/uL 4.4-11.0 [facility] Emergency Department Summary on 11-16-2024 Emergency Department Summary [facility] Medical Records Department [address] [place] [address] Emergency Department Summary 11/16/24 MR#: [id number] Acct: [id number] Name: KATRINA MELVIN Rep #: [id number] : 1975 49 From: Tad Reeder DO PCP: Dr. Jeniffer White DO Status:REG ER Location: ED HPI History of Present Illness Chief Complaint: Lower Extremity Injury Narrative Narrative: Patient is a 49-year-old male with a past medical history of DVT, PE on Lovenox 130 mg twice daily, type 2 diabetes, hypertension who presented to the emerged part with concern of right leg pain and swelling. Patient states that few weeks ago he originally had pain and swelling in his right leg he thought he hurt his calf muscle and states that he thought things would get better. He states that recently on Wednesday he went diving and preparation to go on a trip in 2 weeks to do scuba diving in [facility]. He states that on Wednesday when he woke up he had pain and swelling in his right calf leg again. He states that he has been trying [id number]-[id number] medications as well as ice heat TENS units etc. without any symptomatic relief. He states that he he thought he was getting better however after work today he noted that he had significant pain and swelling therefore he came here for further evaluation management. He states that in the past he had an injury in the left leg and he had clot burden from his groin all the way to his foot. He states that this clot took a very long time to breakdown he states that Xarelto and Eliquis does not work on him he states that on his Lovenox he will cut himself and he will not bleed as expected for being on without much Lovenox. He is concerned that he has another clot in his leg on the right side [facility] Medical History Barretts esophagus Fatty liver Thyroid disease Arthritis DVT (deep venous thrombosis) Injury of back Injury of head and neck History of GI bleed Former smoker Shortness of breath on exertion Leg cramps History of edema History of echocardiogram History of stress test Cardiology follow-up encounter History of CHF (congestive heart failure) Rotator cuff arthropathy of left shoulder History of TIA (transient ischemic attack) Diabetes mellitus Hemorrhage of anus and rectum Idiopathic cardiomyopathy Thyroid nodule Essential (primary) hypertension 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 Type 2 diabetes mellitus Medial meniscus tear Diastolic dysfunction with heart failure DVT of leg (deep venous thrombosis) Contusion of left knee, initial encounter Other internal derangements of left knee Pain of left knee after injury Other tear of lateral meniscus, current injury, left knee, subsequent encounter Other tear of medial meniscus, current injury, left knee, subsequent encounter Pulmonary embolism (07/2016) Home Medications ???Medication ???Instructions ???Recorded ???Last Taken ???Type enoxaparin 150 mg/mL subcutaneous 135 mg subcut Q12@0600,1800 12/1008/03/22 History syringe cholecalciferol (vitamin D3) 125 5,000 unit PO DAILY 04/24/18 Unkno wn History mcg (5,000 unit) capsule multivitamin 1 ea PO DAILY 04/24/18 Unknown His tory spironolactone 25 mg tablet 25 mg PO DAILY #90 tabs 09/08/18 U nknown Rx empagliflozin 10 mg tablet 10 mg PO DAILY 02/19/22 Unknown Hi story (Jardiance) carvedilol 12.5 mg tablet 50 mg PO BID 07/06/22 07/08/22 His tory sacubitril 97 mg-valsartan 103 mg 1 tab PO BID 07/06/22 07/08/22 Hi story tablet (Entresto) pantoprazole 40 mg tablet,delayed 40 mg PO QAM #90 tabs 09/18/22 Un known Rx release furosemide 40 mg tablet (Lasix) 40 mg PO TID 04/30/23 Unknown Hist ory sulfamethoxazole 800 1 tab PO BID #14 tabs 04/30/23 Unk nown Rx mg-trimethoprim 160 mg tablet (Bactrim DS) methimazole 5 mg tablet 5 mg PO DAILY 10/24/24 Unknown His tory potassium chloride 20 mEq 20 meq PO BID 10/24/24 Unknown His tory tablet,extended release semaglutide 2 mg/dose (8 mg/3 mL) 2 mg subcut QWEEK 10/24/24 Unknow n History subcutaneous pen injector (Ozempic) Allergy/AdvReac Type Severity Reaction Status Date / Time codeine Allergy Other Verified 11/16/24 14:47 metformin Allergy Abd Verified 11/16/24 14:47 cramps/diarrhea perflutren (From ALGAentis) AdvReac Pain in Verified 11/16/24 14:47 joints Family History Father Hypertension Diabetes Mother Hypertension Diabetes Other Cervical cancer Myocardial infarction Skin cancer Surgical History History of cardiac catheterization History of left heart catheterization (03/04/18) torn cartilage behin (more content not included)... Normal [facility] Venous Duplex US, Unilateral on 11-16-2024 Venous Duplex US, Unilateral [facility] Cardiovascular Services [address] [place] [address] Venous Duplex US, Unilateral 11/16/24 1508 MR#: [id number] Acct: [id number] Name: KATRINA MELVIN Rep #: [id number] : 1975 49 From: Marcus Gabriel MD Attending Dr: Status: DEP ER Ordering Dr: Tad Reeder DO Date: 11/16/24 Location: ED Sex: M C Admitted: Reason For Study Reason For Study: RLE Pain RIGHT LEFT GSV is normal. CFV is compressible, spontaneous, phasic, competent, CFV is compressible, spontaneous, phasic, competent and demonstrates normal augmentation. and demonstrates normal augmentation. FV is compressible, spontaneous, phasic, competent and demonstrates normal augmentation. POP V is compressible, spontaneous, phasic, competent and demonstrates normal augmentation. T/P Trunk is compressible. PTV is compressible. RT PerV is compressible. Nonvascularized hypoechoic area noted in Rt Medial Calf measuring approximately 12.25cm x 3.09cm. Procedure This is a venous duplex using B-mode, color flow and spectral Doppler. Exam performed portable in ED. The exam was diagnostic. A preliminary report was called and/or faxed to Dr. Reeder. VL/Venous Duplex US, Unilateral Interpretation Summary Deep veins of the right lower extremity are patent and compressible segmentally. There is no evidence of right lower extremity deep vein thrombosis. Valvular competence appears intact within the proximal deep venous system on the right . The right great saphenous vein appears patent and compressible segmentally. A non-vascular, hypoechoic structure is noted in the right medial calf, measuring 12.25 cm x 3.09 cm. This probably represents a seroma or hematoma. Clinical correlation is advised. The left common femoral vein is patent and compressible . ___ Ordering Physician: Tad Reeder Referring Physician: Jeniffer White Performed By: Julio Hernandez RVT 11/16/242150 Date Marcus Gabriel MD CC: Dr. Jeniffer White DO; Dr. Tad Reeder DO Date Dictated: 11/16/24 1508 Date Transcribed: 11/16/242150 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: Signed Normal [facility] AFP, Tumor Markeron 10-29-19 AFP TUMOR JENIFFER < 1.8 Normal 0.0-6.9 [facility] Comment on above: Order Comment: DR. Celestino WAGNER GETS A1C DR. BOYCE GETS EVERYTHING ELSE Result Comment: [facility] Electrochemiluminescence Immunoassay (ECLIA) Values obtained with different assay methods or kits cannot be used interchangeably. Results cannot be interpreted as absolute evidence of the presence or absence of malignant disease. This test is not interpretable in females. Performed at: - [address], [place], [place] [address] Learning Manager: Migel Motta PhD, Phone: [phone] Performed By: #### L 500.2500, L500.3400, L100.0100, L300.3900, L501.9985, L300.4310, L3300.0700 #### [facility] Laboratory [facility] [place], [address] Absolute lymphocyte countOrd ered By: Jeniffer White on 10-27-2024 Lymphocytes Auto (Unsp spec) [#/Vol] 1.55 10*3/uL 0.83-4.51 [facility] Absolute neutrophil countOrd ered By: Jeniffer White on 10-27-2024 Neutrophils (Bld) [#/Vol] 3.3 10*3/uL 2.0-7.7 [facility] Activated partial thrombopla stin time (aPTT) in platelet poor plasma by coagulation aOrdered By: Jeniffer White on 10-27-2024 aPTT Coag (PPP) [Time] 36.9 s High 24.1-36.2 [facility] Anion gap in Serum or Plasma Ordered By: Jeniffer White on 10-27-2024 Anion gap [Moles/Vol] 12 mmol/L 5-15 [facility] Automated lymphocyte count a s percentage of total leukocytesOrdered By: Jeniffer White on 10-27-2024 Lymphocytes/100 WBC Auto (Unsp spec) 27.9 % 19-41 [facility] BUN/creatinine ratioOrdered By: Jeniffer White on 10-27-2024 Urea nitrogen/Creatinine [Mass ratio] 26.4 mg/mg High 10-20 [facility] Basophil percentageOrdered B y: Jeniffer White on 10-27-2024 Basophils/100 WBC (Bld) 0.5 % 0-1 [facility] Bilirubin directOrdered By: Jeniffer White on 10-27-2024 Bilirubin.direct [Mass/Vol] 0.19 mg/dL 0.00-0.30 [facility] Bilirubin, Directon 10-28-19 25 Bilirubin.direct [Mass/Vol] 0.19 mg/dL Normal 0.00-0.30 [facility] Comment on above: Order Comment: LIPID , TSH, T4F, A1C AMD MIACRE GO TO DR. YU OTHERS GO TO DR. REUBEN BERMUDEZ Performed By: #### L 3300.0700, L506.0400, L501.4700, L500.4050, L500.4100, L502.0250, L100.0100, L501.9520, L501.9985, L300.4310, L300.3900 ####[facility] [address] [place], [place], [phone] Bilirubin, totalOrdered By: Jeniffer White on 10-27-2024 Bilirubin [Mass/Vol] 0.55 mg/dL 0.00-1.30 [facility] CBC W/Diff, Automatedon 050 Absolute Lymph 1.55 X10 3/uL Normal 0.83-4.51 [facility] Comment on above: Order Comment: LIPID , TSH, T4F, A1C AMD MIACRE GO TO DR. YU OTHERS GO TO DR. REUBEN BERMUDEZ Performed By: #### L 3300.0700, L506.0400, L501.4700, L500.4050, L500.4100, L502.0250, L100.0100, L501.9520, L501.9985, L300.4310, L300.3900 ####[facility] [address] [place], [place], [phone] Absolute Neut 3.3 X10 3/uL Normal 2.0-7.7 [facility] Comment on above: Order Comment: LIPID , TSH, T4F, A1C AMD MIACRE GO TO DR. YU OTHERS GO TO DR. REUBEN BERMUDEZ Performed By: #### L 3300.0700, L506.0400, L501.4700, L500.4050, L500.4100, L502.0250, L100.0100, L501.9520, L501.9985, L300.4310, L300.3900 ####[facility] [address] [place], [address] Basophils/100 WBC (Bld) 0.5 % Normal 0-1 [facility] Comment on above: Order Comment: LIPID , TSH, T4F, A1C AMD MIACRE GO TO DR. YU OTHERS GO TO DR. REUBEN BERMUDEZ Performed By: #### L 3300.0700, L506.0400, L501.4700, L500.4050, L500.4100, L502.0250, L100.0100, L501.9520, L501.9985, L300.4310, L300.3900 ####[facility] [address] [place], [place], [phone] Eosinophils/100 WBC (Bld) 1.8 % Normal 0-5 [facility] Comment on above: Order Comment: LIPID , TSH, T4F, A1C AMD MIACRE GO TO DR. YU OTHERS GO TO DR. REUBEN BERMUDEZ Performed By: #### L 3300.0700, L506.0400, L501.4700, L500.4050, L500.4100, L502.0250, L100.0100, L501.9520, L501.9985, L300.4310, L300.3900 ####[facility] [address] [place], [place], [phone] Erythrocyte distribution width (RBC) [Ratio] 13.7 % Normal 11.6-14.6 [facility] Comment on above: Order Comment: LIPID , TSH, T4F, A1C AMD MIACRE GO TO DR. YU OTHERS GO TO DR. REUBEN BERMUDEZ Performed By: #### L 3300.0700, L506.0400, L501.4700, L500.4050, L500.4100, L502.0250, L100.0100, L501.9520, L501.9985, L300.4310, L300.3900 ####[facility] [address] [place], [place], [phone] Hematocrit (Bld) [Volume fraction] 45.5 % Normal 40-54 [facility] Comment on above: Order Comment: LIPID , TSH, T4F, A1C AMD MIACRE GO TO DR. YU OTHERS GO TO DR. REUBEN BERMUDEZ Performed By: #### L 3300.0700, L506.0400, L501.4700, L500.4050, L500.4100, L502.0250, L100.0100, L501.9520, L501.9985, L300.4310, L300.3900 ####[facility] [address] [place], [place], [phone] Hemoglobin (Bld) [Mass/Vol] 15.1 g/dL Normal 13.0-16.5 [facility] Comment on above: Order Comment: LIPID , TSH, T4F, A1C AMD MIACRE GO TO DR. YU OTHERS GO TO DR. REUBEN BERMUDEZ Performed By: #### L 3300.0700, L506.0400, L501.4700, L500.4050, L500.4100, L502.0250, L100.0100, L501.9520, L501.9985, L300.4310, L300.3900 ####[facility] [address] [place], [phone] IG% 0.400 Normal 0.0-0.9 [facility] Comment on above: Order Comment: LIPID , TSH, T4F, A1C AMD MIACRE GO TO DR. YU OTHERS GO TO DR. REUBEN BERMUDEZ Result Comment: IG% - Immature Granulocytes (promyelocytes, myelocytes and metamyelocytes) > 1% indicates that a LEFT SHIFT is Present. Performed By: #### L 3300.0700, L506.0400, L501.4700, L500.4050, L500.4100, L502.0250, L100.0100, L501.9520, L501.9985, L300.4310, L300.3900 ####[facility] [address] [place], [phone]) Lymphocytes/100 WBC (Bld) 27.9 % Normal 19-41 [facility] Comment on above: Order Comment: LIPID , TSH, T4F, A1C AMD MIACRE GO TO DR. YU OTHERS GO TO DR. REUBEN BERMUDEZ Performed By: #### L 3300.0700, L506.0400, L501.4700, L500.4050, L500.4100, L502.0250, L100.0100, L501.9520, L501.9985, L300.4310, L300.3900 ####[facility] [address] [place], [address] MCH (RBC) [Entitic mass] 30.3 pg Normal 27.0-32.0 [facility] Comment on above: Order Comment: LIPID , TSH, T4F, A1C AMD MIACRE GO TO DR. YU OTHERS GO TO DR. REUBEN BERMUDEZ Performed By: #### L 3300.0700, L506.0400, L501.4700, L500.4050, L500.4100, L502.0250, L100.0100, L501.9520, L501.9985, L300.4310, L300.3900 ####[facility] [address] [place], [address] MCHC (RBC) [Mass/Vol] 33.2 g/dL Normal 32-36 [facility] Comment on above: Order Comment: LIPID , TSH, T4F, A1C AMD MIACRE GO TO DR. YU OTHERS GO TO DR. REUBEN BERMUDEZ Performed By: #### L 3300.0700, L506.0400, L501.4700, L500.4050, L500.4100, L502.0250, L100.0100, L501.9520, L501.9985, L300.4310, L300.3900 ####[facility] [address] [place], [address] MCV (RBC) [Entitic vol] 91.4 fL Normal 80-94 [facility] Comment on above: Order Comment: LIPID , TSH, T4F, A1C AMD MIACRE GO TO DR. YU OTHERS GO TO DR. REUBEN BERMUDEZ Performed By: #### L 3300.0700, L506.0400, L501.4700, L500.4050, L500.4100, L502.0250, L100.0100, L501.9520, L501.9985, L300.4310, L300.3900 ####[facility] [address] [place], [address] Monocytes/100 WBC (Bld) 9.7 % Normal 0-10 [facility] Comment on above: Order Comment: LIPID , TSH, T4F, A1C AMD MIACRE GO TO DR. YU OTHERS GO TO DR. REUBEN BERMUDEZ Performed By: #### L 3300.0700, L506.0400, L501.4700, L500.4050, L500.4100, L502.0250, L100.0100, L501.9520, L501.9985, L300.4310, L300.3900 ####[facility] [address] [place], [address] Neutrophils/100 WBC (Bld) 59.7 % Normal 47-70 [facility] Comment on above: Order Comment: LIPID , TSH, T4F, A1C AMD MIACRE GO TO DR. YU OTHERS GO TO DR. REUBEN BERMUDEZ Performed By: #### L 3300.0700, L506.0400, L501.4700, L500.4050, L500.4100, L502.0250, L100.0100, L501.9520, L501.9985, L300.4310, L300.3900 ####[facility] [address] [place], [address] Nucleated RBC (Bld) [#/Vol] 0 10*3/uL Normal 0-5 [facility] Comment on above: Order Comment: LIPID , TSH, T4F, A1C AMD MIACRE GO TO DR. YU OTHERS GO TO DR. REUBEN BERMUDEZ Performed By: #### L 3300.0700, L506.0400, L501.4700, L500.4050, L500.4100, L502.0250, L100.0100, L501.9520, L501.9985, L300.4310, L300.3900 ####[facility] [address] [place], [place], [phone] Platelet mean volume (Bld) [Entitic vol] 9.5 fL Normal 6.2-12.0 [facility] Comment on above: Order Comment: LIPID , TSH, T4F, A1C AMD MIACRE GO TO DR. YU OTHERS GO TO DR. REUBEN BERMUDEZ Performed By: #### L 3300.0700, L506.0400, L501.4700, L500.4050, L500.4100, L502.0250, L100.0100, L501.9520, L501.9985, L300.4310, L300.3900 ####[facility] [address] [place], [place], [phone] Platelets (Bld) [#/Vol] 215 10*3/uL Normal 150-450 [facility] Comment on above: Order Comment: LIPID , TSH, T4F, A1C AMD MIACRE GO TO DR. YU OTHERS GO TO DR. REUBEN BERMUDEZ Performed By: #### L 3300.0700, L506.0400, L501.4700, L500.4050, L500.4100, L502.0250, L100.0100, L501.9520, L501.9985, L300.4310, L300.3900 ####[facility] [address] [place], [address] RBC (Bld) [#/Vol] 4.98 10*6/uL Normal 4.6-6.2 [facility] Comment on above: Order Comment: LIPID , TSH, T4F, A1C AMD MIACRE GO TO DR. YU OTHERS GO TO DR. REUBEN BERMUDEZ Performed By: #### L 3300.0700, L506.0400, L501.4700, L500.4050, L500.4100, L502.0250, L100.0100, L501.9520, L501.9985, L300.4310, L300.3900 ####[facility] [address] [place], [address] RDW SD 46.2 fl High 35.1-43.9 [facility] Comment on above: Order Comment: LIPID , TSH, T4F, A1C AMD MIACRE GO TO DR. YU OTHERS GO TO DR. REUBEN BERMUDEZ Performed By: #### L 3300.0700, L506.0400, L501.4700, L500.4050, L500.4100, L502.0250, L100.0100, L501.9520, L501.9985, L300.4310, L300.3900 ####[facility] [address] [place], [address] WBC (Bld) [#/Vol] 5.6 10*3/uL Normal 4.4-11.0 [facility] Comment on above: Order Comment: LIPID , TSH, T4F, A1C AMD MIACRE GO TO DR. YU OTHERS GO TO DR. REUBEN BERMUDEZ Performed By: #### L 3300.0700, L506.0400, L501.4700, L500.4050, L500.4100, L502.0250, L100.0100, L501.9520, L501.9985, L300.4310, L300.3900 ####[facility] [address] [place], [place], [phone] Calculated very low density lipoprotein (VLDL) cholesterol measurementOrdered By: Jeniffer White on 10-27-2024 Calculated very low density lipoprotein (VLDL) cholesterol measurement 100 mg/dL High 5-40 [facility] Carbon dioxide, total [Moles /volume] in Central venous bloodOrdered By: Jeniffer White on 10-27-2024 CO2 [Moles/Vol] 22.9 mmol/L 21.0-32.0 [facility] Chloride assayOrdered By: Hunter White on 10-27-2024 Chloride [Moles/Vol] 102 mmol/L 98-108 [facility] Comprehensive Metabolic Prof ilon 10-27-2024 Albumin [Mass/Vol] 4.3 g/dL Normal 3.5-5.0 [facility] Comment on above: Order Comment: LIPID , TSH, T4F, A1C AMD MIACRE GO TO DR. YU OTHERS GO TO DR. REUBEN BERMUDEZ Performed By: #### L 3300.0700, L506.0400, L501.4700, L500.4050, L500.4100, L502.0250, L100.0100, L501.9520, L501.9985, L300.4310, L300.3900 ####[facility] [address] [place], [place], [phone] Albumin/Globulin [Mass ratio] 1.4 {ratio} Normal 0.9-2.4 [facility] Comment on above: Order Comment: LIPID , TSH, T4F, A1C AMD MIACRE GO TO DR. YU OTHERS GO TO DR. REUBEN BERMUDEZ Performed By: #### L 3300.0700, L506.0400, L501.4700, L500.4050, L500.4100, L502.0250, L100.0100, L501.9520, L501.9985, L300.4310, L300.3900 ####[facility] [address] [place], [place], [phone] ALK PHOS 85 U/L Normal 40-129 [facility] Comment on above: Order Comment: LIPID , TSH, T4F, A1C AMD MIACRE GO TO DR. YU OTHERS GO TO DR. REUBEN BERMUDEZ Performed By: #### L 3300.0700, L506.0400, L501.4700, L500.4050, L500.4100, L502.0250, L100.0100, L501.9520, L501.9985, L300.4310, L300.3900 ####[facility] [address] [place], [place], [phone] ALT [Catalytic activity/Vol] 51 U/L High <=46 [facility] Comment on above: Order Comment: LIPID , TSH, T4F, A1C AMD MIACRE GO TO DR. YU OTHERS GO TO DR. REUBEN BERMUDEZ Performed By: #### L 3300.0700, L506.0400, L501.4700, L500.4050, L500.4100, L502.0250, L100.0100, L501.9520, L501.9985, L300.4310, L300.3900 ####[facility] [address] [place], [address] AST [Catalytic activity/Vol] 30 U/L Normal <=37 [facility] Comment on above: Order Comment: LIPID , TSH, T4F, A1C AMD MIACRE GO TO DR. YU OTHERS GO TO DR. REUBEN BERMUDEZ Performed By: #### L 3300.0700, L506.0400, L501.4700, L500.4050, L500.4100, L502.0250, L100.0100, L501.9520, L501.9985, L300.4310, L300.3900 ####[facility] [address] [place], [address] Bilirubin [Mass/Vol] 0.55 mg/dL Normal 0.00-1.30 [facility] Comment on above: Order Comment: LIPID , TSH, T4F, A1C AMD MIACRE GO TO DR. YU OTHERS GO TO DR. REUBEN BERMUDEZ Performed By: #### L 3300.0700, L506.0400, L501.4700, L500.4050, L500.4100, L502.0250, L100.0100, L501.9520, L501.9985, L300.4310, L300.3900 ####[facility] [address] [place], [place], [phone] BUN/CRE 26.4 RATIO High 10-20 [facility] Comment on above: Order Comment: LIPID , TSH, T4F, A1C AMD MIACRE GO TO DR. YU OTHERS GO TO DR. REUBEN BERMUDEZ Performed By: #### L 3300.0700, L506.0400, L501.4700, L500.4050, L500.4100, L502.0250, L100.0100, L501.9520, L501.9985, L300.4310, L300.3900 ####[facility] [address] [place], [address](555) Calcium [Mass/Vol] 9.1 mg/dL Normal 7.6-11.0 [facility] Comment on above: Order Comment: LIPID , TSH, T4F, A1C AMD MIACRE GO TO DR. YU OTHERS GO TO DR. REUBEN BERMUDEZ Performed By: #### L 3300.0700, L506.0400, L501.4700, L500.4050, L500.4100, L502.0250, L100.0100, L501.9520, L501.9985, L300.4310, L300.3900 ####[facility] [address] [place], [place], [phone] Chloride [Moles/Vol] 102 mmol/L Normal 98-108 [facility] Comment on above: Order Comment: LIPID , TSH, T4F, A1C AMD MIACRE GO TO DR. YU OTHERS GO TO DR. REUBEN BERMUDEZ Performed By: #### L 3300.0700, L506.0400, L501.4700, L500.4050, L500.4100, L502.0250, L100.0100, L501.9520, L501.9985, L300.4310, L300.3900 ####[facility] [address] [place], [phone]) CO2 [Moles/Vol] 22.9 mmol/L Normal 21.0-32.0 [facility] Comment on above: Order Comment: LIPID , TSH, T4F, A1C AMD MIACRE GO TO DR. YU OTHERS GO TO DR. REUBEN BERMUDEZ Performed By: #### L 3300.0700, L506.0400, L501.4700, L500.4050, L500.4100, L502.0250, L100.0100, L501.9520, L501.9985, L300.4310, L300.3900 ####[facility] [address] [place], [place], [phone] Creatinine [Mass/Vol] 0.70 mg/dL Normal 0.70-1.20 [facility] Comment on above: Order Comment: LIPID , TSH, T4F, A1C AMD MIACRE GO TO DR. YU OTHERS GO TO DR. REUBEN BERMUDEZ Performed By: #### L 3300.0700, L506.0400, L501.4700, L500.4050, L500.4100, L502.0250, L100.0100, L501.9520, L501.9985, L300.4310, L300.3900 ####[facility] [address] [place], [place], [phone] GAP 12 Normal 5-15 [facility] Comment on above: Order Comment: LIPID , TSH, T4F, A1C AMD MIACRE GO TO DR. YU OTHERS GO TO DR. REUBEN BERMUDEZ Performed By: #### L 3300.0700, L506.0400, L501.4700, L500.4050, L500.4100, L502.0250, L100.0100, L501.9520, L501.9985, L300.4310, L300.3900 ####[facility] [address] [place], [place], [phone] GFR/1.73 sq M.predicted among non-blacks MDRD (S/P/Bld) [Vol rate/Area] 113 mL/min/{1.73_m2} Normal >60 [facility] Comment on above: Order Comment: LIPID , TSH, T4F, A1C AMD MIACRE GO TO DR. YU OTHERS GO TO DR. REUBEN BERMUDEZ Result Comment: mL/m in/1.73m2 CKD-EPI Creatinine Equation (2020) Performed By: #### L 3300.0700, L506.0400, L501.4700, L500.4050, L500.4100, L502.0250, L100.0100, L501.9520, L501.9985, L300.4310, L300.3900 ####[facility] [address] [place], [place], [phone] Globulin (S) [Mass/Vol] 3.0 g/dL Normal 2.2-4.2 [facility] Comment on above: Order Comment: LIPID , TSH, T4F, A1C AMD MIACRE GO TO DR. YU OTHERS GO TO DR. REUBEN BERMUDEZ Performed By: #### L 3300.0700, L506.0400, L501.4700, L500.4050, L500.4100, L502.0250, L100.0100, L501.9520, L501.9985, L300.4310, L300.3900 ####[facility] [address] [place], [place], [phone] Glucose [Mass/Vol] 218 mg/dL High 70-99 [facility] Comment on above: Order Comment: LIPID , TSH, T4F, A1C AMD MIACRE GO TO DR. YU OTHERS GO TO DR. REUBEN BERMUDEZ Performed By: #### L 3300.0700, L506.0400, L501.4700, L500.4050, L500.4100, L502.0250, L100.0100, L501.9520, L501.9985, L300.4310, L300.3900 ####[facility] [address] [place], [place], [phone] Potassium [Moles/Vol] 4.2 mmol/L Normal 3.3-5.1 [facility] Comment on above: Order Comment: LIPID , TSH, T4F, A1C AMD MIACRE GO TO DR. YU OTHERS GO TO DR. REUBEN BERMUDEZ Performed By: #### L 3300.0700, L506.0400, L501.4700, L500.4050, L500.4100, L502.0250, L100.0100, L501.9520, L501.9985, L300.4310, L300.3900 ####[facility] [address] [place], [address] Sodium [Moles/Vol] 137 mmol/L Normal 133-145 [facility] Comment on above: Order Comment: LIPID , TSH, T4F, A1C AMD MIACRE GO TO DR. YU OTHERS GO TO DR. REUBEN BERMUDEZ Performed By: #### L 3300.0700, L506.0400, L501.4700, L500.4050, L500.4100, L502.0250, L100.0100, L501.9520, L501.9985, L300.4310, L300.3900 ####[facility] [address] [place], [place], [phone] T PROT 7.3 g/dL Normal 5.9-8.4 [facility] Comment on above: Order Comment: LIPID , TSH, T4F, A1C AMD MIACRE GO TO DR. YU OTHERS GO TO DR. REUBEN BERMUDEZ Performed By: #### L 3300.0700, L506.0400, L501.4700, L500.4050, L500.4100, L502.0250, L100.0100, L501.9520, L501.9985, L300.4310, L300.3900 ####[facility] [address] [place], [address] Urea nitrogen [Mass/Vol] 18 mg/dL Normal 4-19 [facility] Comment on above: Order Comment: LIPID , TSH, T4F, A1C AMD MIACRE GO TO DR. YU OTHERS GO TO DR. REUBEN BERMUDEZ Performed By: #### L 3300.0700, L506.0400, L501.4700, L500.4050, L500.4100, L502.0250, L100.0100, L501.9520, L501.9985, L300.4310, L300.3900 ####[facility] [address] [place], [address] Eosinophil percentageOrdered By: Jeniffer White on 10-27-2024 Eosinophils/100 WBC (Bld) 1.8 % 0-5 [facility] Erythrocyte distribution wid th ratioOrdered By: Jeniffer White on 10-27-2024 Erythrocyte distribution width (RBC) [Ratio] 13.7 % 11.6-14.6 [facility] Erythrocyte distribution wid th standard deviationOrdered By: Jeniffer White on 10-27-2024 Erythrocyte distribution width (RBC) [Ratio] 46.2 fl High 35.1-43.9 [facility] Glomerular filtration rate ( GFR) estimation/1.73 sq m using serum, plasma, or whole bOrdered By: Jeniffer White on 10-27-2024 GFR/1.73 sq M.predicted among non-blacks MDRD (S/P/Bld) [Vol rate/Area] 113 mL/min/{1.73_m2} >60 [facility] Comment on above: mL/min/1.73m2 CKD-EP I Creatinine Equation (2020) Hematocrit Auto (Bld) [Volum e fraction]Ordered By: Jeniffer White on 10-27-2024 Hematocrit (Bld) [Volume fraction] 45.5 % 40-54 [facility] Hemoglobin A1con 10-27-2024 HbA1c (Bld) [Mass fraction] 8.1 % High <=5.6 [facility] Comment on above: Order Comment: LIPID , TSH, T4F, A1C AMD MIACRE GO TO DR. YU OTHERS GO TO DR. REUBEN BERMUDEZ Result Comment: Norm al < 5.7 % Prediabetic 5.7 - 6.4 % Diabetic >or= 6.5 % Please note range changes. Performed By: #### L 3300.0700, L506.0400, L501.4700, L500.4050, L500.4100, L502.0250, L100.0100, L501.9520, L501.9985, L300.4310, L300.3900 ####[facility] [id number] [place], [address] Hemoglobin A1c percentageOrd ered By: Jeniffer White on 10-27-2024 HbA1c (Bld) [Mass fraction] 8.1 % High <5.7 [facility] Comment on above: Normal < 5.7 % Predi abetic 5.7 - 6.4 % Diabetic >or= 6.5 % Please note range changes. Hemoglobin measurementOrdere d By: Jeniffer White on 10-27-2024 Hemoglobin (Bld) [Mass/Vol] 15.1 g/dL 13.0-16.5 [facility] Immature granulocytes/100 WB C Auto (Bld)Ordered By: Jeniffer White on 10-27-2024 Immature granulocytes/100 WBC (Bld) 0.400 % 0.0-0.9 [facility] Comment on above: IG% - Immature Granu locytes (promyelocytes, myelocytes and metamyelocytes) > 1% indicates that a LEFT SHIFT is Present. International normalized rat io (INR) calculationOrdered By: Jeniffer White on 10-27-2024 INR Coag (Bld) [Relative time] 1.0 {INR} [facility] LDL calc ser/plasOrdered By: Jeniffer White on 10-27-2024 Cholesterol in LDL [Mass/Vol] 94 mg/dL [facility] Comment on above: Xisbrykoqu=195-084 m g/dL & Higher Ovxt=187 mg/dL or greater Laboratory - Chemistry and C hemistry - challengeOrdered By: Jeniffer White on 10-27-2024 AST [Catalytic activity/Vol] 30 U/L <38 [facility] Lipid Profileon 05-09-2025 CHOL:HDL 6.17 Normal [facility] Comment on above: Order Comment: LIPID , TSH, T4F, A1C AMD MIACRE GO TO DR. YU OTHERS GO TO DR. REUBEN BERMUDEZ Performed By: #### L 3300.0700, L506.0400, L501.4700, L500.4050, L500.4100, L502.0250, L100.0100, L501.9520, L501.9985, L300.4310, L300.3900 ####[facility] [address] [place], [place], [id number] Cholesterol [Mass/Vol] 232 mg/dL High <=200 [facility] Comment on above: Order Comment: LIPID , TSH, T4F, [facility]C [facility] YU OTHERS GO TO DR. REUBEN BERMUDEZ Result Comment: Chol esterol level, Desirable <200 mg/dL Borderline high cholesterol 200-239 mg/dL High cholesterol >=240 mg/dL Recommendations of the NCEP Adult Treatment Panel for the following risk-cutoff thresholds for the [place] population. Performed By: #### L 3300.0700, L506.0400, L501.4700, L500.4050, L500.4100, L502.0250, L100.0100, L501.9520, L501.9985, L300.4310, L300.3900 ####[facility] [address] [place], [place], [phone](256) Cholesterol in HDL [Mass/Vol] 38 mg/dL Low [facility] Comment on above: Order Comment: LIPID , TSH, T4F, A1C AMD MIACRE GO TO DR. YU OTHERS GO TO DR. REUBEN BERMUDEZ Result Comment: Lavern onal Cholesterol Education Program (NCEP) guidelines: <40 mg/dL: Low HDL-cholesterol (major risk factor for CHD) >= 60 mg/dL: High HDL-cholesterol (negative risk factor for CHD) HDL-cholesterol is affected by a number of factors, e.g. smoking, exercise, hormones, sex and age. Performed By: #### L 3300.0700, L506.0400, L501.4700, L500.4050, L500.4100, L502.0250, L100.0100, L501.9520, L501.9985, L300.4310, L300.3900 ####[facility] [address] [place], [address] Cholesterol in LDL [Mass/Vol] 94 mg/dL Normal [facility] Comment on above: Order Comment: LIPID , TSH, T4F, A1C AMD MIACRE GO TO DR. YU OTHERS GO TO DR. REUBEN BERMUDEZ Result Comment: Bord qbzqdl=859-597 mg/dL Higher Hrds=058 mg/dL or greater Performed By: #### L 3300.0700, L506.0400, L501.4700, L500.4050, L500.4100, L502.0250, L100.0100, L501.9520, L501.9985, L300.4310, L300.3900 ####[facility] [address] [place], [address] Cholesterol in VLDL [Mass/Vol] 100 mg/dL High 5-40 [facility] Comment on above: Order Comment: LIPID , TSH, T4F, A1C AMD MIACRE GO TO DR. YU OTHERS GO TO DR. REUBEN BERMUDEZ Performed By: #### L 3300.0700, L506.0400, L501.4700, L500.4050, L500.4100, L502.0250, L100.0100, L501.9520, L501.9985, L300.4310, L300.3900 ####[facility] [address] [place], [address] Triglyceride [Mass/Vol] 500 mg/dL High [facility] Comment on above: Order Comment: LIPID , TSH, T4F, A1C AMD MIACRE GO TO DR. YU OTHERS GO TO DR. REUBEN BERMUDEZ Result Comment: The drugs N-Acetylcysteine and Metamizole may falsely depress this assay. Normal range: <150 mg/dL Borderline High: 150-199 mg/dL High: 200-499 mg/dL Very High: >500 mg/dL Performed By: #### L 3300.0700, L506.0400, L501.4700, L500.4050, L500.4100, L502.0250, L100.0100, L501.9520, L501.9985, L300.4310, L300.3900 ####[facility] [address] [place], [address] MCV (mean corpuscular volume ) determinationOrdered By: Jeniffer White on 10-27-2024 MCV (RBC) [Entitic vol] 91.4 fL 80-94 [facility] Mean corpuscular hemoglobin (MCH) determinationOrdered By: Jeniffer White on 10-27-2024 MCH (RBC) [Entitic mass] 30.3 pg 27.0-32.0 [facility] Mean corpuscular hemoglobin concentration (MCHC) determinationOrdered By: Jeniffer White on 10-27-2024 MCHC (RBC) [Mass/Vol] 33.2 g/dL 32-36 [facility] Mean platelet volume determi nationOrdered By: Jeniffer White on 10-27-2024 Platelet mean volume (Bld) [Entitic vol] 9.5 fL 6.2-12.0 [facility] Monocyte percentageOrdered B y: Jeniffer White on 10-27-2024 Monocytes/100 WBC (Bld) 9.7 % 0-10 [facility] Neutrophil percentageOrdered By: Jeniffer White on 10-27-2024 Neutrophils/100 WBC (Bld) 59.7 % 47-70 [facility] Nucleated red blood cell per centageOrdered By: Jeniffer White on 10-27-2024 Nucleated RBC/100 WBC (Bld) [Ratio] 0 % 0-5 [facility] Partial Thromboplast Timeon 10-27-2024 aPTT Coag (Bld) [Time] 36.9 s High 24.1-36.2 [facility] Comment on above: Order Comment: LIPID , TSH, T4F, A1C AMD MIACRE GO TO DR. YU OTHERS GO TO DR. REUEBN BERMUDEZ Performed By: #### L 3300.0700, L506.0400, L501.4700, L500.4050, L500.4100, L502.0250, L100.0100, L501.9520, L501.9985, L300.4310, L300.3900 ####[facility] [address] [place], [place], [id number] Platelet countOrdered By: Hunter White on 10-27-2024 Platelets (Bld) [#/Vol] 215 10*3/uL 150-450 [facility] Potassium measurement (mass/ volume)Ordered By: Jeniffer White on 10-27-2024 Potassium (Unsp spec) [Mass/Vol] 4.2 mmol/L 3.3-5.1 [facility] Prothrombin Time w/INRon INR Coag (PPP) [Relative time] 1.0 {INR} Normal [facility] Comment on above: Order Comment: LIPID , TSH, T4F, A1C AMD MIACRE GO TO DR. YU OTHERS GO TO DR. REUBEN BERMUDEZ Performed By: #### L 3300.0700, L506.0400, L501.4700, L500.4050, L500.4100, L502.0250, L100.0100, L501.9520, L501.9985, L300.4310, L300.3900 ####[facility] [address] [place], [place], [phone] PT Coag (PPP) [Time] 13.8 s Normal 11.7-14.9 [facility] Comment on above: Order Comment: LIPID , TSH, T4F, A1C AMD MIACRE GO TO DR. YU OTHERS GO TO DR. REUBEN BERMUDEZ Performed By: #### L 3300.0700, L506.0400, L501.4700, L500.4050, L500.4100, L502.0250, L100.0100, L501.9520, L501.9985, L300.4310, L300.3900 ####[facility] [address] [place], [address] Prothrombin timeOrdered By: Jeniffer White on 10-27-2024 PT Coag (PPP) [Time] 13.8 s 11.7-14.9 [facility] RBC Auto (Bld) [#/Vol]Ordere d By: Jeniffer White on 10-27-2024 RBC (Bld) [#/Vol] 4.98 10*6/uL 4.6-6.2 [facility] Random urine creatinine paty urement (mass/volume)Ordered By: Jeniffer White on 10-27-2024 Creatinine Unsp time (U) [Mass/Vol] 87.50 mg/dL 39.00-259. 00 [facility] Screening total cholesterol/ high density lipoprotein (HDL) cholesterol ratioOrdered By: Jeniffer White on 10-27-2024 Cholesterol.total/Choles terol in HDL [Mass ratio] 6.17 {ratio} [facility] Serum creatinine measurement (mass/volume)Ordered By: Jeniffer White on 10-27-2024 Creatinine [Mass/Vol] 0.70 mg/dL 0.70-1.20 [facility] Serum globulin measurementOr dered By: Jeniffer White on 10-27-2024 Globulin (S) [Mass/Vol] 3.0 g/dL 2.2-4.2 [facility] Serum glucose measurement (m ass/volume)Ordered By: Jeniffer White on 10-27-2024 Glucose [Mass/Vol] 218 mg/dL High 70-99 [facility] Serum or plasma alanine alejandra otransferase (ALT) measurementOrdered By: Jeniffer White on 10-27-2024 ALT [Catalytic activity/Vol] 51 U/L High <47 [facility] Serum or plasma albumin paty urement (mass/volume)Ordered By: Jeniffer White on 10-27-2024 Albumin [Mass/Vol] 4.3 g/dL 3.5-5.0 [facility] Serum or plasma albumin/glob ulin mass ratioOrdered By: Jeniffer White on 10-27-2024 Albumin/Globulin [Mass ratio] 1.4 {ratio} 0.9-2.4 [facility] Serum or plasma alkaline teja sphatase measurementOrdered By: Jeniffer White on 10-27-2024 ALP [Catalytic activity/Vol] 85 U/L 40-129 [facility] Serum or plasma calcium paty urement (mass/volume)Ordered By: Jeniffer White on 10-27-2024 Calcium [Mass/Vol] 9.1 mg/dL 7.6-11.0 [facility] Serum or plasma cholesterol in HDL measurement (mass/volume)Ordered By: Jeniffer White on 10-27-2024 Cholesterol in HDL [Mass/Vol] 38 mg/dL Low >40 [facility] Comment on above: National Cholesterol Education Program (NCEP) guidelines:<40 mg/dL: Low HDL-cholesterol (major risk factor for CHD)>= 60 mg/dL: High HDL-cholesterol (negative risk factor for CHD)HDL-cholesterol is affected by a number of factors, e.g. smoking, exercise, hormones, sex and age. Serum or plasma cholesterol measurement (mass/volume)Ordered By: Jeniffer White on 10-27-2024 Cholesterol [Mass/Vol] 232 mg/dL High <201 [facility] Comment on above: Cholesterol level, D esirable <200 mg/dLBorderline high cholesterol 200-239 mg/dLHigh cholesterol >=240 mg/dLRecommendations of the NCEP Adult Treatment Panel for the following risk-cutoff thresholds for the [place] population. Serum or plasma urea nitroge n measurement (mass/volume)Ordered By: Jeniffer White on 10-27-2024 Urea nitrogen [Mass/Vol] 18 mg/dL 4-19 [facility] Sodium levelOrdered By: Jeniffer White on 10-27-2024 Sodium [Moles/Vol] 137 mmol/L 133-145 [facility] T4 Free Directon 10-27-2024 T4 FREE DIRECT 1.20 ng/dL Normal 0.76-1.46 [facility] Comment on above: Order Comment: LIPID , TSH, T4F, A1C AMD MIACRE GO TO DR. YU OTHERS GO TO DR. REUBEN LANG Performed By: #### L 3300.0700, L506.0400, L501.4700, L500.4050, L500.4100, L502.0250, L100.0100, L501.9520, L501.9985, L300.4310, L300.3900 ####[facility] [address] [place], [address] T4 freeOrdered By: Jeniffer osei on 10-27-2024 Free T4 [Mass/Vol] 1.20 ng/dL 0.76-1.46 [facility] TSH DL <= 0.005 mIU/L QnOrde red By: Jeniffer White on 10-27-2024 TSH Qn 2.360 uIU/mL 0.300-4.20 0 [facility] Thyroid Stim Hormone (TSH)on 10-27-2024 TSH 2.360 uIU/mL Normal 0.300-4.20 0 [facility] Comment on above: Order Comment: LIPID , TSH, T4F, A1C AMD MIACRE GO TO DR. YU OTHERS GO TO DR. REUBEN BERMUDEZ Performed By: #### L 3300.0700, L506.0400, L501.4700, L500.4050, L500.4100, L502.0250, L100.0100, L501.9520, L501.9985, L300.4310, L300.3900 ####[facility] [address] [place], [place], [id number] Total proteinOrdered By: Landy White on 10-27-2024 Protein [Mass/Vol] 7.3 g/dL 5.9-8.4 [facility] Triglycerides measurementOrd ered By: Jeniffer White on 10-27-2024 Triglyceride [Mass/Vol] 500 mg/dL High <199 [facility] Comment on above: The drugs N-Acetylcy steine and Metamizole may falsely depress this assay. Normal range: <150 mg/dLBorderline High: 150-199 mg/dLHigh: 200-499 mg/dLVery High: >500 mg/dL Urine albumin measurement wi th detection limit of 20 mg/L or less (mass/volume)Ordered By: Jeniffer White on 10-27-2024 Albumin DL <= 20 mg/L (U) [Mass/Vol] 18.8 mg/L NO RANGE EST. [facility] White blood cell (WBC) count Ordered By: Jeniffer White on 10-27-2024 WBC (Bld) [#/Vol] 5.6 10*3/uL 4.4-11.0 [facility] Hemoglobin A1con 08-09-2024 HbA1c (Bld) [Mass fraction] 7.6 % High 3.8-5.6 [facility] Comment on above: Result Comment: Norm al < 5.7 % Prediabetic 5.7 - 6.4 % Diabetic >or= 6.5 % Please note range changes. Performed By: #### L 501.9985 #### [facility] Laboratory [facility] [place], [address] Hemoglobin A1c percentageOrd ered By: Jeniffer White on 08-09-2024 HbA1c (Bld) [Mass fraction] 7.6 % High 3.8-5.6 [facility] Comment on above: Normal < 5.7 % Predi abetic 5.7 - 6.4 % Diabetic >or= 6.5 % Please note range changes. AFP, Tumor Markeron 05-03-20 AFP TUMOR JENIFFER < 1.8 Normal 0.0-6.9 [facility] Comment on above: Order Comment: DR. Celestino WAGNER GETS A1C DR. BOYCE GETS EVERYTHING ELSE N Result Comment: [facility] [employer] Electrochemiluminescence Immunoassay (ECLIA) Values obtained with different assay methods or kits cannot be used interchangeably. Results cannot be interpreted as absolute evidence of the presence or absence of malignant disease. This test is not interpretable in females. Performed at: [address] [id number] Learning Manager: Migel Motta PhD, Phone: [phone] Performed By: #### L 500.2500, L500.3400, L100.0100, L300.3900, L501.9985, L300.4310, L3300.0700 #### [facility] [address] [place], [address] Basic Metabolic Profile (BMP )on 05-02-2024 BUN/CRE 26.1 RATIO High 10-20 [facility] Comment on above: Order Comment: DR. Celestino WAGNER GETS A1C DR. BOYCE GETS EVERYTHING ELSE Performed By: #### L 500.2500, L500.3400, L100.0100, L300.3900, L501.9985, L300.4310, L3300.0700 #### [facility] [address] [place], [address] CA,Total 9.7 mg/dL Normal 8.5-10.1 [facility] Comment on above: Order Comment: DR. Celestino WAGNER GETS A1C DR. BOYCE GETS EVERYTHING ELSE Performed By: #### L 500.2500, L500.3400, L100.0100, L300.3900, L501.9985, L300.4310, L3300.0700 #### [facility] [address] [place], [address] Chloride [Moles/Vol] 100 mmol/L Normal 98-107 [facility] Comment on above: Order Comment: DR. Celestino WAGNER GETS A1C DR. BOYCE GETS EVERYTHING ELSE Performed By: #### L 500.2500, L500.3400, L100.0100, L300.3900, L501.9985, L300.4310, L3300.0700 #### [facility] [address] [place], [address] CO2 [Moles/Vol] 24.0 mmol/L Normal 21.0-32.0 [facility] Comment on above: Order Comment: DR. Celestino WAGNER GETS A1C DR. BOYCE GETS EVERYTHING ELSE Performed By: #### L 500.2500, L500.3400, L100.0100, L300.3900, L501.9985, L300.4310, L3300.0700 #### [facility] [address] [place], [address] Creatinine [Mass/Vol] 0.84 mg/dL Normal 0.70-1.30 [facility] Comment on above: Order Comment: DR. Celestino WAGNER GETS A1C DR. BOYCE GETS EVERYTHING ELSE Result Comment: The validity of the calculated GFR GFRAA in patients over 70 years has not been determined. Clinical correlation is essential. Performed By: #### L 500.2500, L500.3400, L100.0100, L300.3900, L501.9985, L300.4310, L3300.0700 #### [facility] [address] [place], [address] EST GFR - AA 125 mL/min Normal >60 [facility] Comment on above: Order Comment: DR. Celestino WAGNER GETS A1C DR. BOYCE GETS EVERYTHING ELSE Result Comment: Afri can Brazilian GFR Calc Performed By: #### L 500.2500, L500.3400, L100.0100, L300.3900, L501.9985, L300.4310, L3300.0700 #### [facility] [address] [place], [address] GAP 10 Normal 5-15 [facility] Comment on above: Order Comment: DR. Celestino WAGNER GETS A1C DR. BOYCE GETS EVERYTHING ELSE Performed By: #### L 500.2500, L500.3400, L100.0100, L300.3900, L501.9985, L300.4310, L3300.0700 #### [facility] [address] [place], [address] GFR/1.73 sq M.predicted among non-blacks MDRD (S/P/Bld) [Vol rate/Area] 103 mL/min/{1.73_m2} Normal >60 [facility] Comment on above: Order Comment: DR. Celestino WAGNER GETS A1C DR. BOYCE GETS EVERYTHING ELSE Result Comment: Non- GFR Calc Performed By: #### L 500.2500, L500.3400, L100.0100, L300.3900, L501.9985, L300.4310, L3300.0700 #### [facility] [address] [place], [address] Glucose [Mass/Vol] 283 mg/dL High 74-106 [facility] Comment on above: Order Comment: DR. Celestino WAGNER GETS A1C DR. BOYCE GETS EVERYTHING ELSE Result Comment: Gluc ose result greater than or equal to 200 mg/dL suggests DIABETES MELLITUS per A.D.A. criteria. Performed By: #### L 500.2500, L500.3400, L100.0100, L300.3900, L501.9985, L300.4310, L3300.0700 #### [facility] [address] [place], [address] Potassium [Moles/Vol] 4.4 mmol/L Normal 3.5-5.1 [facility] Comment on above: Order Comment: DR. Celestino WAGNER GETS A1C DR. BOYCE GETS EVERYTHING ELSE Performed By: #### L 500.2500, L500.3400, L100.0100, L300.3900, L501.9985, L300.4310, L3300.0700 #### [facility] [address] [place], [address] Sodium [Moles/Vol] 134 mmol/L Low 136-145 [facility] Comment on above: Order Comment: DR. Celestino WAGNER GETS A1C DR. BOYCE GETS EVERYTHING ELSE Performed By: #### L 500.2500, L500.3400, L100.0100, L300.3900, L501.9985, L300.4310, L3300.0700 #### [facility] [address] [place], [address] Urea nitrogen [Mass/Vol] 22 mg/dL High 7-18 [facility] Comment on above: Order Comment: DR. Celestino WAGNER GETS A1C DR. BOYCE GETS EVERYTHING ELSE Performed By: #### L 500.2500, L500.3400, L100.0100, L300.3900, L501.9985, L300.4310, L3300.0700 #### [facility] [address] [place], [address] CBC W/Diff, Automatedon 04-21 Absolute Lymph 2.05 X10 3/uL Normal 0.83-4.51 [facility] Comment on above: Order Comment: DR. Celestino WAGNER GETS A1C DR. BOYCE GETS EVERYTHING ELSE Performed By: #### L 500.2500, L500.3400, L100.0100, L300.3900, L501.9985, L300.4310, L3300.0700 #### [facility] [address] [place], [place], [id number] Absolute Neut 3.4 X10 3/uL Normal 2.0-7.7 [facility] Comment on above: Order Comment: DR. Celestino WAGNER GETS A1C DR. BOYCE GETS EVERYTHING ELSE Performed By: #### L 500.2500, L500.3400, L100.0100, L300.3900, L501.9985, L300.4310, L3300.0700 #### [facility] [address] [place], [address] Basophils/100 WBC (Bld) 0.5 % Normal 0-1 [facility] Comment on above: Order Comment: DR. Celestino WAGNER GETS A1C DR. BOYCE GETS EVERYTHING ELSE Performed By: #### L 500.2500, L500.3400, L100.0100, L300.3900, L501.9985, L300.4310, L3300.0700 #### [facility] [address] [place], [address] Eosinophils/100 WBC (Bld) 1.2 % Normal 0-5 [facility] Comment on above: Order Comment: DR. Celestino WAGNER GETS A1C DR. BOYEC GETS EVERYTHING ELSE Performed By: #### L 500.2500, L500.3400, L100.0100, L300.3900, L501.9985, L300.4310, L3300.0700 #### [facility] [address] [place], [address] Erythrocyte distribution width (RBC) [Ratio] 13.5 % Normal 11.6-14.6 [facility] Comment on above: Order Comment: DR. Celestino WAGNER GETS A1C DR. BOYCE GETS EVERYTHING ELSE Performed By: #### L 500.2500, L500.3400, L100.0100, L300.3900, L501.9985, L300.4310, L3300.0700 #### [facility] [address] [place], [address] Hematocrit (Bld) [Volume fraction] 47.0 % Normal 40-54 [facility] Comment on above: Order Comment: DR. Celestino WAGNER GETS A1C DR. BOYCE GETS EVERYTHING ELSE Performed By: #### L 500.2500, L500.3400, L100.0100, L300.3900, L501.9985, L300.4310, L3300.0700 #### [facility] [address] [place], [address] Hemoglobin (Bld) [Mass/Vol] 15.7 g/dL Normal 13.0-16.5 [facility] Comment on above: Order Comment: DR. Celestino WAGNER GETS A1C DR. BOYCE GETS EVERYTHING ELSE Performed By: #### L 500.2500, L500.3400, L100.0100, L300.3900, L501.9985, L300.4310, L3300.0700 #### [facility] [address] [place], [address] IG% 0.500 Normal 0.0-0.9 [facility] Comment on above: Order Comment: DR. Celestino WAGNER GETS A1C DR. BOYCE GETS EVERYTHING ELSE Result Comment: IG% - Immature Granulocytes (promyelocytes, myelocytes and metamyelocytes) > 1% indicates that a LEFT SHIFT is Present. Performed By: #### L 500.2500, L500.3400, L100.0100, L300.3900, L501.9985, L300.4310, L3300.0700 #### [facility] [address] [place], [address] Lymphocytes/100 WBC (Bld) 33.7 % Normal 19-41 [facility] Comment on above: Order Comment: DR. Celestino WAGNER GETS A1C DR. BOYCE GETS EVERYTHING ELSE Performed By: #### L 500.2500, L500.3400, L100.0100, L300.3900, L501.9985, L300.4310, L3300.0700 #### [facility] [address] [place], [address] MCH (RBC) [Entitic mass] 30.3 pg Normal 27.0-32.0 [facility] Comment on above: Order Comment: DR. Celestino WAGNER GETS A1C DR. BOYCE GETS EVERYTHING ELSE Performed By: #### L 500.2500, L500.3400, L100.0100, L300.3900, L501.9985, L300.4310, L3300.0700 #### [facility] [address] [place], [address] MCHC (RBC) [Mass/Vol] 33.4 g/dL Normal 32-36 [facility] Comment on above: Order Comment: DR. Celestino WAGNER GETS A1C DR. BOYCE GETS EVERYTHING ELSE Performed By: #### L 500.2500, L500.3400, L100.0100, L300.3900, L501.9985, L300.4310, L3300.0700 #### [facility] [address] [place], [address] MCV (RBC) [Entitic vol] 90.7 fL Normal 80-94 [facility] Comment on above: Order Comment: DR. Celestino WAGNER GETS A1C DR. BOYCE GETS EVERYTHING ELSE Performed By: #### L 500.2500, L500.3400, L100.0100, L300.3900, L501.9985, L300.4310, L3300.0700 #### [facility] [address] [place], [address] Monocytes/100 WBC (Bld) 7.6 % Normal 0-10 [facility] Comment on above: Order Comment: DR. Celestino WAGNER GETS A1C DR. BOYCE GETS EVERYTHING ELSE Performed By: #### L 500.2500, L500.3400, L100.0100, L300.3900, L501.9985, L300.4310, L3300.0700 #### [facility] [address] [place], [address] Neutrophils/100 WBC (Bld) 56.5 % Normal 47-70 [facility] [facility] Comment on above: Order Comment: DR. Celestino WAGNER GETS A1C DR. BOYCE GETS EVERYTHING ELSE Performed By: #### L 500.2500, L500.3400, L100.0100, L300.3900, L501.9985, L300.4310, L3300.0700 #### [facility] [address] [place], [address] Nucleated RBC (Bld) [#/Vol] 0 10*3/uL Normal 0-5 [facility] Comment on above: Order Comment: DR. Celestino WAGNER GETS A1C DR. BOYCE GETS EVERYTHING ELSE Performed By: #### L 500.2500, L500.3400, L100.0100, L300.3900, L501.9985, L300.4310, L3300.0700 #### [facility] [address] [place], [address] Platelet mean volume (Bld) [Entitic vol] 9.7 fL Normal 6.2-12.0 [facility] Comment on above: Order Comment: DR. Celestino WAGNER GETS A1C DR. BOYCE GETS EVERYTHING ELSE Performed By: #### L 500.2500, L500.3400, L100.0100, L300.3900, L501.9985, L300.4310, L3300.0700 #### [facility] [address] [place], [address] Platelets (Bld) [#/Vol] 264 10*3/uL Normal 150-450 [facility] Comment on above: Order Comment: DR. Celestino WAGNER GETS A1C DR. BOYCE GETS EVERYTHING ELSE Performed By: #### L 500.2500, L500.3400, L100.0100, L300.3900, L501.9985, L300.4310, L3300.0700 #### [facility] [address] [place], [address] RBC (Bld) [#/Vol] 5.18 10*6/uL Normal 4.6-6.2 [facility] Comment on above: Order Comment: DR. Celestino WAGNER GETS A1C DR. BOYCE GETS EVERYTHING ELSE Performed By: #### L 500.2500, L500.3400, L100.0100, L300.3900, L501.9985, L300.4310, L3300.0700 #### [facility] [address] [place], [address] RDW SD 45.1 fl High 35.1-43.9 [facility] Comment on above: Order Comment: DR. Celestino WAGNER GETS A1C DR. BOYCE GETS EVERYTHING ELSE Performed By: #### L 500.2500, L500.3400, L100.0100, L300.3900, L501.9985, L300.4310, L3300.0700 #### [facility] [address] [place], [address] WBC (Bld) [#/Vol] 6.1 10*3/uL Normal 4.4-11.0 [facility] Comment on above: Order Comment: DR. Celestino WAGNER GETS A1C DR. BOYCE GETS EVERYTHING ELSE Performed By: #### L 500.2500, L500.3400, L100.0100, L300.3900, L501.9985, L300.4310, L3300.0700 #### [facility] [address] [place], [address] Hemoglobin A1con 05-02-2024 HbA1c (Bld) [Mass fraction] 9.3 % High 3.8-5.6 [facility] Comment on above: Order Comment: DR. Celestino WAGNER GETS A1C DR. BOYCE GETS EVERYTHING ELSE Result Comment: Norm al < 5.7 % Prediabetic 5.7 - 6.4 % Diabetic >or= 6.5 % Please note range changes. Performed By: #### L 500.2500, L500.3400, L100.0100, L300.3900, L501.9985, L300.4310, L3300.0700 #### [facility] [address] [place], [address] Liver Profileon 05-02-2024 Albumin [Mass/Vol] 4.2 g/dL Normal 3.2-5.0 [facility] Comment on above: Order Comment: DR. Celestino WAGNER GETS A1C DR. BOYCE GETS EVERYTHING ELSE Performed By: #### L 500.2500, L500.3400, L100.0100, L300.3900, L501.9985, L300.4310, L3300.0700 #### [facility] [address] [place], [address] ALK P 85 U/L Normal 45-117 [facility] Comment on above: Order Comment: DR. Celestino WAGNER GETS A1C DR. BOYCE GETS EVERYTHING ELSE Performed By: #### L 500.2500, L500.3400, L100.0100, L300.3900, L501.9985, L300.4310, L3300.0700 #### [facility] [address] [place], [address] ALT [Catalytic activity/Vol] 53 U/L Normal 16-61 [facility] Comment on above: Order Comment: DR. Celestino WAGNER GETS A1C DR. BOYCE GETS EVERYTHING ELSE Performed By: #### L 500.2500, L500.3400, L100.0100, L300.3900, L501.9985, L300.4310, L3300.0700 #### [facility] [address] [place], [address] AST [Catalytic activity/Vol] 27 U/L Normal 15-37 [facility] Comment on above: Order Comment: DR. Celestino WAGNER GETS A1C DR. BOYCE GETS EVERYTHING ELSE Performed By: #### L 500.2500, L500.3400, L100.0100, L300.3900, L501.9985, L300.4310, L3300.0700 #### [facility] [address] [place], [address] Bilirubin [Mass/Vol] 0.90 mg/dL Normal 0.20-1.00 [facility] Comment on above: Order Comment: DR. Celestino WAGNER GETS A1C DR. BOYCE GETS EVERYTHING ELSE Result Comment: For patients on eltrombopag therapy, use of Dimension Gardiner TBIL is not recommended. Performed By: #### L 500.2500, L500.3400, L100.0100, L300.3900, L501.9985, L300.4310, L3300.0700 #### [facility] [address] [place], [address] Bilirubin.direct [Mass/Vol] 0.13 mg/dL Normal 0.00-0.30 [facility] Comment on above: Order Comment: DR. Celestino WAGNER GETS A1C DR. BOYCE GETS EVERYTHING ELSE Performed By: #### L 500.2500, L500.3400, L100.0100, L300.3900, L501.9985, L300.4310, L3300.0700 #### [facility] [address] [place], [address] Globulin (S) [Mass/Vol] 3.4 g/dL Normal 2.2-4.2 [facility] Comment on above: Order Comment: DR. Celestino WAGNER GETS A1C DR. BOYCE GETS EVERYTHING ELSE Performed By: #### L 500.2500, L500.3400, L100.0100, L300.3900, L501.9985, L300.4310, L3300.0700 #### [facility] [address] [place], [address] T PROT 7.6 g/dL Normal 6.4-8.2 [facility] Comment on above: Order Comment: DR. Celestino WAGNER GETS A1C DR. BOYCE GETS EVERYTHING ELSE Performed By: #### L 500.2500, L500.3400, L100.0100, L300.3900, L501.9985, L300.4310, L3300.0700 #### [facility] [address] [place], [address] Partial Thromboplast Timeon 05-02-2024 aPTT Coag (Bld) [Time] 38.3 s High 24.1-36.2 [facility] Comment on above: Order Comment: DR. Celestino WAGNER GETS A1C DR. BOYCE GETS EVERYTHING ELSE Performed By: #### L 500.2500, L500.3400, L100.0100, L300.3900, L501.9985, L300.4310, L3300.0700 #### [facility] [address] [place], [address] Prothrombin Time w/INRon INR Coag (PPP) [Relative time] 1.0 {INR} Normal [facility] Comment on above: Order Comment: DR. Celestino WAGNER GETS A1C DR. BOYCE GETS EVERYTHING ELSE Performed By: #### L 500.2500, L500.3400, L100.0100, L300.3900, L501.9985, L300.4310, L3300.0700 #### [facility] [address] [place], [address] PT Coag (PPP) [Time] 13.1 s Normal 11.7-14.9 [facility] Comment on above: Order Comment: DR. Celestino WAGNER GETS A1C DR. BOYCE GETS EVERYTHING ELSE Performed By: #### L 500.2500, L500.3400, L100.0100, L300.3900, L501.9985, L300.4310, L3300.0700 #### [facility] [address] [place], [address] Cardiac echo study Procedure Ordered By: Obey Mason on 04-21-2024 Ao ASC index 1.49 cm/m2 [facility] Work Phone: Ao peak aquilino 1.20 m/s [facility] Work Phone: Ao SOV index 1.57 cm/m2 [facility] Work Phone: Ao STJ index 1.45 cm/m2 [facility] Work Phone: Ao VTI 23.70 cm [facility] Work Phone: Ascending aorta 3.57 cm [facility] Work Phone: AV LVOT peak gradient 3 mmHg [facility] Work Phone: AV mean gradient 4 mmHg [facility] Work Phone: AV peak gradient 6 mm[facility]: AV valve area 3.59 cm2 [facility] Work Phone: AV Velocity Ratio 0.75 [facility] Work Phone: REBA (continuity Vmax) 3.36 [facility]: REBA (continuity VTI) 3.59 cm2 [facility] Work Phone: REBA index (continuity Vmax) 1.40 m/s [facility] Work Phone: REBA index (continuity VTI) 1.50 cm2/m2 [facility] Work Phone: Body surface area Derived from formula 2.4 m2 [facility] Work Phone: BP EF 40 % [facility] Work Phone: DI (Vmax) 0.75 [facility] Work Phone: DI (VTI) 0.80 m/2 [facility] Work Phone: E wave decelartion time 313.00 msec [facility] Work Phone: e' lateral pk aquilino 0.1450 m/s [facility] Work Phone: e' lateral pk aquilino 0.15 m/s [facility] Work Phone: E/A ratio 0.80 [facility] Work Phone: E/e' lateral ratio 3.79 [facility] Work Phone: EF SP 2CH 40 [facility] Work Phone: EF SP 4CH 45 [facility] Work Phone: EST RAP 3.00 mmHg [facility] Work Phone: [phone] EST RVSP 21 mmHg [facility] Work Phone: FS 26 % [facility] Work Phone: IVC ostium 1.80 cm [facility] Work Phone: IVS 0.83 cm [facility] Work Phone: LA ESV BP (MOD) 83 mL [facility] Work Phone: LA ESV BP (MOD) index 35 mL/m2 [facility] Work Phone: LA ESV SP 2CH (MOD) 65 mL [facility] Work Phone: LA ESV SP 4CH (MOD) 66 mL [facility] Work Phone: LV EDV BP 148 mL [facility] Work Phone: LV EDV SP 2CH 163 mL [facility] Work Phone: LV EDV SP 4CH 132 mL [facility] Work Phone: LV ESV BP 89 mL [facility] Work Phone: [phone] LV ESV SP 2CH 97 mL [facility] Work Phone: LV ESV SP 4CH 72 mL [facility] Work Phone: LV mass 175.00 g [facility] Work Phone: LV Mass Index 72.9 g/m2 [facility] Work Phone: LV RWT 0.29 [facility] Work Phone: LV stroke volume BP (ml) 59 mL [facility] Work Phone: LV stroke volume index BP 24.58 mL/m2 [facility] Work Phone: LVIDD 5.64 cm [facility] Work Phone: LVIDS 4.20 cm [facility] Work Phone: LVOT area 4.48 cm2 [facility] Work Phone: LVOT diameter 2.39 cm [facility] Work Phone: LVOT peak aquilino 0.90 m/s [facility] Work Phone: LVOT peak VTI 19.00 cm [facility] Work Phone: LVOT stroke volume 85 cm3 [facility] Work Phone: LVOT stroke volume index 35.50 ml/m2 [facility] Work Phone: MV pk A aquilino 0.69 m/s [facility] Work Phone: MV pk E aquilino 0.55 m/s [facility] Work Phone: [facility] AV VTI RATIO PRE STRESS 0.80 [facility] Work Phone: OSU ECHO LV BIPLANE SYSTOLIC VOLUME INDEX 37.08 mL/m2 [facility] Work Phone: OSU ECHO LV BP DIASTOLIC VOLUME INDEX 61.67 mL/m2 [facility] Work Phone: OSU RVOT VTI RATIO 0.51 [facility] Work Phone: PV mean gradient 3 mmHg [facility] Work Phone: [phone] PV peak gradient 5 mmHg [facility] Work Phone: PV PK AQUILINO 1.12 m/s [facility] Work Phone: PV VTI 23.25 cm [facility] Work Phone: PW 0.83 cm [facility] Work Phone: RA area 4CH (MOD) 18.31 cm2 [facility] Work Phone: RA vol index 4CH (MOD) 20.83 mL/m2 [facility] Work Phone: Right atrium volume 4 chamber method of disks 50 [facility] Work Phone: RV basal diam 4.35 cm [facility] Work Phone: RV mid diam 3.67 cm [facility] Work Phone: RV S' 12.74 cm/s [facility] Work Phone: RVOT peak gradient 1 mmHg [facility] Work Phone: RVOT peak aquilino 0.54 m/s [facility] Work Phone: RVOT peak VTI 11.79 cm [facility] Work Phone: Sinus 3.76 cm [facility] Work Phone: STJ 3.47 cm [facility] Work Phone: Stroke Volume 85 cm/mL [facility] Work Phone: Stroke volume index 35 [facility] Work Phone: TAPSE 2.23 cm [facility] Work Phone: TR pk grad 18 [facility] Work Phone: TR pk aquilino 2.12 m/s [facility] Work Phone: [facility] Work Phone: Cardiac echo study Procedure on 04-21-2024 Sub-optimal image quality. Left Ventricle: Chamber size is normal. Normal wall thickness. Moderate global hypokinesis. The ejection fraction is 40%. Ejection fraction by modified Noguera's rule is moderately reduced. Diastolic function is consistent with impaired relaxation (grade I). Right ventricle not well visualized. Chamber size is normal. Systolic function is normal. Left Atrium: Chamber size is mildly enlarged. No significant valve disease. Estimated right ventricular systolic pressure is 21 mmHg. Estimated right atrial pressure is 3.00 mmHg. Left Ventricle Chamber size is normal. Normal wall thickness. Moderate global hypokinesis. The ejection fraction is 40%. Ejection fraction by modified Noguera's rule is moderately reduced. Diastolic function is consistent with impaired relaxation (grade I). Right Ventricle Right ventricle not well visualized. Chamber size is normal. Systolic function is normal. Estimated right ventricular systolic pressure is 21 mmHg. Left Atrium Chamber size is mildly enlarged. Right Atrium Chamber size is normal. IVC/SVC The inferior vena cava is normal in size. The inferior vena cava structure has a diameter <21 mm and decreases >50% during inspiration. Mitral Valve Normal appearing leaflets. Leaflet mobility is normal. Trace regurgitation. No valve stenosis. Tricuspid Valve Normal leaflets. Leaflet mobility is normal. Trace regurgitation. No stenosis. Estimated right ventricular systolic pressure is 21 mmHg. Estimated right atrial pressure is 3.00 mmHg. Aortic Valve Trileaflet valve. Leaflet mobility is normal. No regurgitation. No stenosis. Pulmonic Valve Normal structure. Trace regurgitation. No stenosis. Pericardium No pericardial effusion. Septum The atrial septum is normal. Pulmonary Artery The pulmonary artery is normal. Aorta No dilation to extent seen. SOV: 3.76 cm. STJ: 3.47 cm. Ascendin.57 cm. Study Details A complete echocardiography study (including color flow Doppler, spectral Doppler and M-mode) was performed. Overall study quality was fair. Imaging system used: Siemens. Indications Indications for study: cardiomyopathy and pulmonary emboli. [facility] Radiology Study observation (narrative) [facility] ECHOCARDIOGRAMon 04-21-2024 Echocardiography ? Sub-optimal image quality. ? Left Ventricle: Chamber size is normal. Normal wall thickness. Moderate global hypokinesis. The ejection fraction is 40%. Ejection fraction by modified Noguera's rule is moderately reduced. Diastolic function is consistent with impaired relaxation (grade I). ? Right ventricle not well visualized. Chamber size is normal. Systolic function is normal. ? Left Atrium: Chamber size is mildly enlarged. ? No significant valve disease. ? Estimated right ventricular systolic pressure is 21 mmHg. Estimated right atrial pressure is 3.00 mmHg. Table formatting from the original result was not included. Images from the original result were not included. Facility [facility] Patient Information Patient Name ViaKatrina Legal Sex Male Indication for Exam Priority: Routine Dx: Dilated cardiomyopathy [I42.0 (ICD-10-CM)] Comments: Please schedule same day as Hernandez apt Interpretation Summary Result History is available. ? Sub-optimal image quality. ? Left Ventricle: Chamber size is normal. Normal wall thickness. Moderate global hypokinesis. The ejection fraction is 40%. Ejection fraction by modified Noguera's rule is moderately reduced. Diastolic function is consistent with impaired relaxation (grade I). ? Right ventricle not well visualized. Chamber size is normal. Systolic function is normal. ? Left Atrium: Chamber size is mildly enlarged. ? No significant valve disease. ? Estimated right ventricular systolic pressure is 21 mmHg. Estimated right atrial pressure is 3.00 mmHg. Findings Left Ventricle Chamber size is normal. Normal wall thickness. Moderate global hypokinesis. The ejection fraction is 40%. Ejection fraction by modified Noguera's rule is moderately reduced. Diastolic function is consistent with impaired relaxation (grade I). Right Ventricle Right ventricle not well visualized. Chamber size is normal. Systolic function is normal. Estimated right ventricular systolic pressure is 21 mmHg. Left Atrium Chamber size is mildly enlarged. Right Atrium Chamber size is normal. Septum The atrial septum is normal. Mitral Valve Normal appearing leaflets. Leaflet mobility is normal. Trace regurgitation. No valve stenosis. Aortic Valve Trileaflet valve. Leaflet mobility is normal. No regurgitation. No stenosis. Tricuspid Valve Normal leaflets. Leaflet mobility is normal. Trace regurgitation. No stenosis. Estimated right ventricular systolic pressure is 21 mmHg. Estimated right atrial pressure is 3.00 mmHg. Pulmonic Valve Normal structure. Trace regurgitation. No stenosis. Aorta No dilation to extent seen. SOV: 3.76 cm. STJ: 3.47 cm. Ascendin.57 cm. Pericardium No pericardial effusion. IVC/SVC The inferior vena cava is normal in size. The inferior vena cava structure has a diameter <21 mm and decreases >50% during inspiration. Pulmonary Artery The pulmonary artery is normal. Reading Providers Reading Role Read Date Obey Mason MD Echo [place] 04/21/2024 Left Heart Measurements LV - Systole LVIDD 5.64 cm IVS 0.83 cm LVIDS 4.2 cm PW 0.83 cm LV RWT 0.29 LV Mass Index 72.9 g/m2 LV EDV BP 148 mL LV ESV BP 89 mL BP EF 40 % LV stroke volume BP (ml) 59 mL LV stroke volume index BP 24.58 mL/m2 LV - Diastole MV pk E aquilino 0.55 m/s MV pk A aquilino 0.69 m/s E/A ratio 0.8 e' lateral pk aquilino 0.15 m/s E/e' lateral ratio 3.79 LV - HCM AV LVOT peak gradient 3 mmHg Left Atrium LA ESV SP 4CH (MOD) 66 mL LA ESV SP 2CH (MOD) 65 mL LA ESV BP (MOD) index 35 mL/m2 Right Heart Measurements RV - 2D RV basal diam 4.35 cm RV mid diam 3.67 cm RV - Doppler TAPSE 2.23 cm RV S' 12.74 cm/s Right Atrium RA vol index 4CH (MOD) 20.83 mL/m2 EST RAP 3 mmHg RA area 4CH (MOD) 18.31 cm2 Great Vessels Aortic Root - End Diastolic Sinus 3.76 cm STJ 3.47 cm Ascending aorta 3.57 cm Inferior Vena Cava IVC ostium 1.8 cm Doppler Measurements - Aortic Valve Stenosis LVOT diameter 2.39 cm LVOT area 4.48 cm2 LVOT peak aquilino 0.9 m/s LVOT peak VTI 19 cm Stroke Volume 85 cm/mL Stroke volume index 35 Ao peak aquilino 1.2 m/s Ao VTI 23.7 cm AV peak gradient 6 mmHG AV mean gradient 4 mmHg DI (VTI) 0.8 m/2 DI (Vmax) 0.75 REBA (continuity Vmax) 3.36 cm2 REBA index (continuity Vmax) 1.4 m/s REBA (continuity VTI) 3.59 cm2 REBA index (continuity VTI) 1.5 cm2/m2 LVOT stroke volume 85 cm3 LVOT stroke volume index 35.5 ml/m2 Doppler Measurements - Mitral Valve Stenosis MV pk E aquilino 0.55 m/s MV pk A aquilino 0.69 m/s E/A ratio 0.8 PISA-MS MV pk E aquilino 0.55 m/s Doppler Measurements - Tricuspid Valve Stenosis IVC ostium 1.8 cm Regurgitation TR pk aquilino 2.12 (more content not included)... Normal [facility] Absolute lymphocyte countOrd ered By: Jeniffer White on 07-20-2023 Lymphocytes Auto (Unsp spec) [#/Vol] 1.86 10*3/uL 0.83-4.51 [facility] Activated partial thrombopla stin time (aPTT) in platelet poor plasma by coagulation aOrdered By: Jeniffer White on 07-20-2023 aPTT Coag (PPP) [Time] 33.4 s 24.1-36.2 [facility] Alpha fetoprotein measuremen t as tumor markerOrdered By: Jeniffer White on 07-20-2023 AFP.tumor marker [Mass/Vol] ng/mL 0.0-6.9 [facility] Comment on above: [facility] El ectrochemiluminescence Immunoassay(ECLIA)Values obtained with different assay methods or kits cannotbe used interchangeably. Results cannot be interpreted asabsolute evidence of the presence or absence of malignantdisease.This test is not interpretable in females.Performed at: [facility] [id number] Director: Migel Motta PhD, Phone: [phone] Automated lymphocyte count a s percentage of total leukocytesOrdered By: Jeniffer White on 07-20-2023 Lymphocytes/100 WBC Auto (Unsp spec) 30.8 % 19-41 [facility] Basophil percentageOrdered B y: Jeniffer White on 07-20-2023 Basophils/100 WBC (Bld) 0.7 % 0-1 [facility] Bilirubin [Mass/Vol] 0.70 mg/dL 0.20-1.00 [facility] Comment on above: For patients on eltr ombopag therapy, use of Dimension [place] TBIL is not recommended. Chloride [Moles/Vol] 103 mmol/L 98-107 [facility] Cholesterol [Mass/Vol] 196 mg/dL <200 [facility] Comment on above: <200 mg/dL Desirable 200-240 mg/dL Borderline >240 mg/dL High Risk Eosinophils/100 WBC (Bld) 0.7 % 0-5 [facility] Glucose [Mass/Vol] 232 mg/dL 74-106 [facility] Comment on above: Glucose result great er than or equal to 200 mg/dLsuggests DIABETES MELLITUS per A.D.A. criteria. Hemoglobin (Bld) [Mass/Vol] 15.0 g/dL 13.0-16.5 [facility] Monocytes/100 WBC (Bld) 8.6 % 0-10 [facility] Neutrophils (Bld) [#/Vol] 3.6 10*3/uL 2.0-7.7 [facility] Neutrophils/100 WBC (Bld) 58.9 % 47-70 [facility] Potassium [Moles/Vol] 3.3 mmol/L 3.5-5.1 [facility] Comment on above: Slight Hemolysis, Re sult may be falsely increased. Protein [Mass/Vol] 7.2 g/dL 6.4-8.2 [facility] Sodium [Moles/Vol] 134 mmol/L 136-145 [facility] Triglyceride [Mass/Vol] 593 mg/dL <199 [facility] Comment on above: The drugs N-Acetylcy steine and Metamizole may falsely depress this assay. TRIGLYCERIDE IS GREATER THAN 400 mg/dL. LDL RESULT IS INVALID AND WILL NOT BE REPORTED.Serum Triglycerides Reference Interval Normal <150 mg/dL Borderline high 150 - 199 mg/dL High 200 - 499 mg/dL Very High > or = 500 mg/dL WBC (Bld) [#/Vol] 6.0 10*3/uL 4.4-11.0 [facility] Determination of erythrocyte mean corpuscular volume (MCV)Ordered By: Jeniffer White on 07-20-2023 MCV (RBC) [Entitic vol] 89.8 fL 80-94 [facility] Direct bilirubinOrdered By: Jeniffer White on 07-20-2023 Bilirubin.direct [Mass/Vol] 0.13 mg/dL 0.00-0.30 [facility] Erythrocyte distribution wid th ratioOrdered By: Jeniffer White on 07-20-2023 Erythrocyte distribution width (RBC) [Ratio] 12.8 % 11.6-14.6 [facility] Erythrocyte distribution wid th standard deviationOrdered By: Jeniffer White on 07-20-2023 Erythrocyte distribution width (RBC) [Entitic vol] 42.3 fL 35.1-43.9 [facility] Hematocrit Auto (Bld) [Volum e fraction]Ordered By: Jeniffer White on 07-20-2023 Hematocrit (Bld) [Volume fraction] 44.8 % 40-54 [facility] Immature granulocytes/100 WB C Auto (Bld)Ordered By: Jeniffer White on 07-20-2023 Immature granulocytes/100 WBC (Bld) 0.300 % 0.0-0.9 [facility] Comment on above: IG% - Immature Granu locytes (promyelocytes, myelocytes and metamyelocytes) > 1% indicates that a LEFT SHIFT is Present. International normalized rat io (INR) calculationOrdered By: Jeniffer White on 07-20-2023 INR Coag (PPP) [Relative time] 0.9 {INR} [facility] Laboratory - Chemistry and C hemistry - challengeOrdered By: Jeniffer White on 07-20-2023 ALP [Catalytic activity/Vol] 89 U/L 45-117 [facility] ALT [Catalytic activity/Vol] 30 U/L 16-61 [facility] Cholesterol in HDL (Body fld) [Mass/Vol] 38 mg/dL >40 [facility] Comment on above: The drugs N-Acetylcy steine and Metamizole may falsely depress this assay. Reference Range HDL <40 mg/dL Low HDL Cholesterol HDL >or= 60 mg/dL High HDL Cholesterol Cholesterol in LDL (Body fld) [Moles/Vol] [facility] Comment on above: Test not performed Cholesterol in VLDL Calc [Moles/Vol] [facility] Comment on above: Test not performed CO2 [Moles/Vol] 24.0 mmol/L 21.0-32.0 [facility] Globulin (S) [Mass/Vol] 3.4 g/dL 2.2-4.2 [facility] Urea nitrogen/Creatinine [Mass ratio] 29.9 mg/mg 10-20 [facility] Laboratory - CoagulationOrde red By: Jeniffer White on 07-20-2023 PT Coag (PPP) [Time] 12.5 s 11.7-14.9 [facility] Laboratory - Hematology and Cell countsOrdered By: Jeniffer White on 07-20-2023 MCH (RBC) [Entitic mass] 30.1 pg 27.0-32.0 [facility] MCHC (RBC) [Mass/Vol] 33.5 g/dL 32-36 [facility] Nucleated RBC/100 WBC (Bld) [Ratio] 0 % 0-5 [facility] Platelets (Bld) [#/Vol] 241 10*3/uL 150-450 [facility] No Panel InformationOrdered By: Jeniffer White on 07-20-2023 Estimated GFR (MDRD) Amer 146 mL/min >60 [facility] Comment on above: GFR Calc Estimated GFR (MDRD) Non-Af Amer 121 mL/min >60 [facility] Comment on above: Non- GFR Calc Platelet mean volume Yohannes-Ec ker (Bld) [Entitic vol]Ordered By: Jeniffer White on 07-20-2023 Platelet mean volume (Bld) [Entitic vol] 9.2 fL 6.2-12.0 [facility] RBC Auto (Bld) [#/Vol]Ordere d By: Jeniffer White on 07-20-2023 RBC (Bld) [#/Vol] 4.99 10*6/uL 4.6-6.2 [facility] Serum or plasma calcium paty urement (mass/volume)Ordered By: Jeniffer White on 07-20-2023 Calcium [Mass/Vol] 9.0 mg/dL 8.5-10.1 [facility] Serum or plasma creatinine m easurement (mass/volume)Ordered By: Jeniffer White on 07-20-2023 Creatinine [Mass/Vol] 0.74 mg/dL 0.70-1.30 [facility] Comment on above: The validity of the calculated GFR & GFRAA in patients over 70 years has not been determined. Clinical correlation is essential. Serum or plasma thyroid stim ulating hormone (TSH) measurement (units/volume)Ordered By: Jeniffer White on 07-20-2023 TSH Qn 2.97 uIU/mL 0.358-3.74 [facility] Serum or plasma urea nitroge n measurement (mass/volume)Ordered By: Jeniffer White on 07-20-2023 Urea nitrogen [Mass/Vol] 22 mg/dL 7-18 [facility] Thin prep Papanicolaou smear with manual screeningOrdered By: Jeniffer White on 07-20-2023 Thin prep Papanicolaou smear with manual screening 3.8 g/dL 3.2-5.0 [facility] Thin prep Papanicolaou smear with manual screening 14 U/L 15-37 [facility] Comment on above: Slight Hemolysis, Re sult may be falsely increased. Thin prep Papanicolaou smear with manual screening 7 5-15 [facility] Thin prep Papanicolaou smear with manual screening 7.2 mg/L NO RANGE EST. [facility] Thin prep Papanicolaou smear with manual screening 1.04 ng/dL 0.76-1.46 [facility] Urine albumin/creatinine rat io for detection of microalbuminuriaOrdered By: Jeniffer White on 07-20-2023 Albumin/Creatinine DL <= 1.0 mg/L (24H U) [Ratio] 12.0 mg/g CRE <30 [facility] Urine creatinine measurement (mass/volume)Ordered By: Jeniffer White on 07-20-2023 Creatinine (U) [Mass/Vol] 60.30 mg/dL NO RANGE EST. [facility] Whole blood hemoglobin A1c/t otal hemoglobin ratio (mass fraction)Ordered By: Jeniffer White on 07-20-2023 HbA1c (Bld) [Mass fraction] 7.5 % 3.8-5.6 [facility] Comment on above: Normal < 5.7 % Predi abetic 5.7 - 6.4 % Diabetic >or= 6.5 % Please note range changes. Bacteria identified Cx Nom ( Wound)Ordered By: Berta Goramn on 05-26-2023 Wound Culture Negative [facility] Gram stain for investigation of transfusion reactionOrdered By: Berta Gorman on 05-26-2023 Microscopic observation Gram stain Nom (Unsp spec) [facility] Absolute lymphocyte countOrd ered By: Traci Aaron on 04-30-2023 Lymphocytes Auto (Unsp spec) [#/Vol] 2.58 10*3/uL 0.83-4.51 [facility] Bacteria identified Cx Nom ( Wound)Ordered By: Traci Aaron on 04-30-2023 Wound Culture Streptococcus agalac tiae (B) [facility] Wound Culture Staphylococcus epidermidis [facility] Basophil percentageOrdered B y: Traci Aaron on 04-30-2023 Basophils/100 WBC (Bld) 0.3 % 0-1 [facility] Chloride [Moles/Vol] 102 mmol/L 98-107 [facility] Eosinophils/100 WBC (Bld) 0.9 % 0-5 [facility] Glucose [Mass/Vol] 178 mg/dL 74-106 [facility] Comment on above: Fasting Glucose resu lt greater than or equal to 126 mg/dL suggests DIABETES MELLITUS per A.D.A. criteria. Neutrophils (Bld) [#/Vol] 5.5 10*3/uL 2.0-7.7 [facility] Neutrophils/100 WBC (Bld) 61.4 % 47-70 [facility] Potassium [Moles/Vol] 3.5 mmol/L 3.5-5.1 [facility] Sodium [Moles/Vol] 140 mmol/L 136-145 [facility] WBC (Bld) [#/Vol] 9.0 10*3/uL 4.4-11.0 [facility] Blood erythrocytes count (nu mber/volume)Ordered By: Traci Aaron on 04-30-2023 RBC (Bld) [#/Vol] 4.89 10*6/uL 4.6-6.2 [facility] Blood hemoglobin measurement (mass/volume)Ordered By: Traci Aaron on 04-30-2023 Hemoglobin (Bld) [Mass/Vol] 14.4 g/dL 13.0-16.5 [facility] Blood lymphocytes/100 leukoc ytesOrdered By: Traci Aaron on 04-30-2023 Lymphocytes/100 WBC (Bld) 28.8 % 19-41 [facility] Blood monocytes/100 leukocyt esOrdered By: Traci Aaron on 04-30-2023 Monocytes/100 WBC (Bld) 8.3 % 0-10 [facility] Blood platelet mean volumeOr dered By: Traci Aaron on 04-30-2023 Platelet mean volume (Bld) [Entitic vol] 9.4 fL 6.2-12.0 [facility] Determination of erythrocyte mean corpuscular volume (MCV)Ordered By: Traci Aaron on 04-30-2023 MCV (RBC) [Entitic vol] 89.4 fL 80-94 [facility] Erythrocyte sedimentation ra teOrdered By: Traci Aaron on 04-30-2023 ESR (Bld) [Velocity] 19 mm/h 0-20 [facility] Gram stain for investigation of transfusion reactionOrdered By: Traci Aaron on 04-30-2023 Microscopic observation Gram stain Nom (Unsp spec) [facility] Hematocrit Auto (Bld) [Volum e fraction]Ordered By: Traci Aaron on 04-30-2023 Hematocrit (Bld) [Volume fraction] 43.7 % 40-54 [facility] INR in Blood by Coagulation assayOrdered By: Traci Aaron on 04-30-2023 INR Coag (Bld) [Relative time] 1.0 {INR} [facility] Laboratory - Chemistry and C hemistry - challengeOrdered By: Traci Aaron on 04-30-2023 CO2 [Moles/Vol] 31.0 mmol/L 21.0-32.0 [facility] Urea nitrogen/Creatinine [Mass ratio] 26.8 mg/mg 10 [facility] Laboratory - CoagulationOrde red By: Traci Aaron on 04-30-2023 aPTT Coag (Bld) [Time] 26.6 s 24.1-36.2 [facility] PT Coag (PPP) [Time] 12.9 s 11.7-14.9 [facility] Laboratory - Hematology and Cell countsOrdered By: Traci Aaron on 04-30-2023 Erythrocyte distribution width (RBC) [Entitic vol] 45.9 fL 35.1-43.9 [facility] Erythrocyte distribution width (RBC) [Ratio] 14.1 % 11.6-14.6 [facility] Immature granulocytes/100 WBC (Bld) 0.300 % 0.0-0.9 [facility] Comment on above: IG% - Immature Granu locytes (promyelocytes, myelocytes and metamyelocytes) > 1% indicates that a LEFT SHIFT is Present. MCH (RBC) [Entitic mass] 29.4 pg 27.0-32.0 [facility] Nucleated RBC/100 WBC (Bld) [Ratio] 0 % 0-5 [facility] MCHC Auto (RBC) [Mass/Vol]Or dered By: Traci Aaron on 04-30-2023 MCHC (RBC) [Mass/Vol] 33.0 g/dL 32-36 [facility] No Panel InformationOrdered By: Traci Aaron on 04-30-2023 Estimated Creatinine Clearance Calc 167.34 ml/min [facility] Estimated GFR (MDRD) Amer 163 mL/min >60 [facility] Comment on above: GFR Calc Estimated GFR (MDRD) Non-Af Amer 134 mL/min >60 [facility] Comment on above: Non- GFR Calc Platelets bldOrdered By: Araceli Aaron on 04-30-2023 Platelets (Bld) [#/Vol] 231 10*3/uL 150-450 [facility] Serum or plasma C reactive p rotein measurement (mass/volume)Ordered By: Traci Aaron on 04-30-2023 CRP [Mass/Vol] 11.10 mg/L 0.0-3.0 [facility] Comment on above: C-Reactive Protein ( CRP) provides useful information for thediagnosis, therapy and monitoring of inflammatory processesand associated diseases. For the evaluation of Relative Riskfor Cardiovascular Disease, a High Sensitivity CRP (HSCRP)should be ordered. Serum or plasma calcium paty urement (mass/volume)Ordered By: Traci Aaron on 11-10-2023 Calcium [Mass/Vol] 8.9 mg/dL 8.5-10.1 [facility] Serum or plasma creatinine m easurement (mass/volume)Ordered By: Traci Aaron on 04-30-2023 Creatinine [Mass/Vol] 0.67 mg/dL 0.70-1.30 [facility] Comment on above: The validity of the calculated GFR & GFRAA in patients over 70 years has not been determined. Clinical correlation is essential. Serum or plasma urea nitroge n measurement (mass/volume)Ordered By: Traci Aaron on 04-30-2023 Urea nitrogen [Mass/Vol] 18 mg/dL 7-18 [facility] Thin prep Papanicolaou smear with manual screeningOrdered By: Traci Aaron on 04-30-2023 Thin prep Papanicolaou smear with manual screening 7 - [facility] Absolute lymphocyte counton 04-21-2023 Lymphocytes Auto (Unsp spec) [#/Vol] 1.85 10*3/uL 0.83-4.51 [facility] Basophil percentageon 2022 Basophils/100 WBC (Bld) 0.4 % 0-1 [facility] Bilirubin [Mass/Vol] 0.90 mg/dL 0.20-1.00 [facility] Comment on above: For patients on eltr ombopag therapy, use of Dimension [place] TBIL is not recommended. Chloride [Moles/Vol] 104 mmol/L 98-107 [facility] Eosinophils/100 WBC (Bld) 1.2 % 0-5 [facility] Glucose [Mass/Vol] 210 mg/dL 74-106 [facility] Comment on above: Glucose result great er than or equal to 200 mg/dLsuggests DIABETES MELLITUS per A.D.A. criteria. Neutrophils (Bld) [#/Vol] 4.3 10*3/uL 2.0-7.7 [facility] Neutrophils/100 WBC (Bld) 62.6 % 47-70 [facility] Potassium [Moles/Vol] 3.7 mmol/L 3.5-5.1 [facility] Protein [Mass/Vol] 7.2 g/dL 6.4-8.2 [facility] Sodium [Moles/Vol] 137 mmol/L 136-145 [facility] WBC (Bld) [#/Vol] 6.9 10*3/uL 4.4-11.0 [facility] Blood erythrocytes count (nu mber/volume)on 04-21-2023 RBC (Bld) [#/Vol] 5.04 10*6/uL 4.6-6.2 [facility] Blood hemoglobin measurement (mass/volume)on 04-21-2023 Hemoglobin (Bld) [Mass/Vol] 15.3 g/dL 13.0-16.5 [facility] Blood lymphocytes/100 leukoc yteson 04-21-2023 Lymphocytes/100 WBC (Bld) 26.7 % 19-41 [facility] Blood monocytes/100 leukocyt eson 04-21-2023 Monocytes/100 WBC (Bld) 8.8 % 0-10 [facility] Blood platelet mean volumeon 04-21-2023 Platelet mean volume (Bld) [Entitic vol] 9.7 fL 6.2-12.0 [facility] Determination of erythrocyte mean corpuscular volume (MCV)on 04-21-2023 MCV (RBC) [Entitic vol] 90.1 fL 80-94 [facility] Direct bilirubinon 3 Bilirubin.direct [Mass/Vol] 0.15 mg/dL 0.00-0.30 [facility] Hematocrit Auto (Bld) [Volum e fraction]on 04-21-2023 Hematocrit (Bld) [Volume fraction] 45.4 % 40-54 [facility] INR in Blood by Coagulation assayon 04-21-2023 INR Coag (Bld) [Relative time] 1.0 {INR} [facility] Laboratory - Chemistry and C hemistry - challengeon 04-21-2023 ALP [Catalytic activity/Vol] 81 U/L 45-117 [facility] ALT [Catalytic activity/Vol] 26 U/L 16-61 [facility] CO2 [Moles/Vol] 23.0 mmol/L 21.0-32.0 [facility] Globulin (S) [Mass/Vol] 3.2 g/dL 2.2-4.2 [facility] Urea nitrogen/Creatinine [Mass ratio] 26.2 mg/mg 10-20 [facility] Laboratory - Coagulationon 1 06-21-2022 aPTT Coag (Bld) [Time] 35.4 s 24.1-36.2 [facility] PT Coag (PPP) [Time] 13.1 s 11.7-14.9 [facility] Laboratory - Hematology and Cell countson 04-21-2023 Erythrocyte distribution width (RBC) [Entitic vol] 46.5 fL 35.1-43.9 [facility] Erythrocyte distribution width (RBC) [Ratio] 14.2 % 11.6-14.6 [facility] Immature granulocytes/100 WBC (Bld) 0.300 % 0.0-0.9 [facility] Comment on above: IG% - Immature Granu locytes (promyelocytes, myelocytes and metamyelocytes) > 1% indicates that a LEFT SHIFT is Present. MCH (RBC) [Entitic mass] 30.4 pg 27.0-32.0 [facility] Nucleated RBC/100 WBC (Bld) [Ratio] 0 % 0-5 [facility] MCHC Auto (RBC) [Mass/Vol]on 04-21-2023 MCHC (RBC) [Mass/Vol] 33.7 g/dL 32-36 [facility] No Panel Informationon 04-21 Estimated GFR (MDRD) Amer 133 mL/min >60 [facility] Comment on above: GFR Calc Estimated GFR (MDRD) Non-Af Amer 110 mL/min >60 [facility] Comment on above: Non- GFR Calc Platelets bldon 04-21-2023 Platelets (Bld) [#/Vol] 262 10*3/uL 150-450 [facility] Serum or plasma albumin paty urement (mass/volume)on 04-21-2023 Albumin [Mass/Vol] 4.0 g/dL 3.2-5.0 [facility] Serum or plasma [id number] protein tumor marker measurement (units/volume)on 04-21-2023 AFP.tumor marker Qn < 1.8 ng/mL 0.0-6.9 [facility] Comment on above: [employer] El ectrochemiluminescence Immunoassay(ECLIA)Values obtained with different assay methods or kits cannotbe used interchangeably. Results cannot be interpreted asabsolute evidence of the presence or absence of malignantdisease.This test is not interpretable in females.Performed at: [facility] [id number] Director: Migel Motta PhD, Phone: [phone] Serum or plasma calcium paty urement (mass/volume)on 04-21-2023 Calcium [Mass/Vol] 8.6 mg/dL 8.5-10.1 [facility] Serum or plasma creatinine m easurement (mass/volume)on 04-21-2023 Creatinine [Mass/Vol] 0.80 mg/dL 0.70-1.30 [facility] Comment on above: The validity of the calculated GFR & GFRAA in patients over 70 years has not been determined. Clinical correlation is essential. Serum or plasma urea nitroge n measurement (mass/volume)on 04-21-2023 Urea nitrogen [Mass/Vol] 21 mg/dL 7-18 [facility] Thin prep Papanicolaou smear with manual screeningon 04-21-2023 Thin prep Papanicolaou smear with manual screening 14 U/L 15-37 [facility] Thin prep Papanicolaou smear with manual screening 10 5-15 [facility] Absolute lymphocyte counton 01-15-2023 Lymphocytes Auto (Unsp spec) [#/Vol] 2.16 10*3/uL 0.83-4.51 [facility] Basophil percentageon 2022 Basophils/100 WBC (Bld) 0.3 % 0-1 [facility] Bilirubin [Mass/Vol] 0.50 mg/dL 0.20-1.00 [facility] Comment on above: For patients on eltr ombopag therapy, use of Dimension [place] TBIL is not recommended. Chloride [Moles/Vol] 104 mmol/L 98-107 [facility] Eosinophils/100 WBC (Bld) 1.3 % 0-5 [facility] Glucose [Mass/Vol] 206 mg/dL 74-106 [facility] Comment on above: Glucose result great er than or equal to 200 mg/dLsuggests DIABETES MELLITUS per A.D.A. criteria. Neutrophils (Bld) [#/Vol] 4.0 10*3/uL 2.0-7.7 [facility] Neutrophils/100 WBC (Bld) 58.1 % 47-70 [facility] Potassium [Moles/Vol] 3.8 mmol/L 3.5-5.1 [facility] Protein [Mass/Vol] 7.5 g/dL 6.4-8.2 [facility] Sodium [Moles/Vol] 137 mmol/L 136-145 [facility] WBC (Bld) [#/Vol] 6.8 10*3/uL 4.4-11.0 [facility] Blood erythrocytes count (nu mber/volume)on 01-15-2023 RBC (Bld) [#/Vol] 5.15 10*6/uL 4.6-6.2 [facility] Blood hemoglobin measurement (mass/volume)on 01-15-2023 Hemoglobin (Bld) [Mass/Vol] 15.4 g/dL 13.0-16.5 [facility] Blood lymphocytes/100 leukoc yteson 01-15-2023 Lymphocytes/100 WBC (Bld) 31.6 % 19-41 [facility] Blood monocytes/100 leukocyt eson 01-15-2023 Monocytes/100 WBC (Bld) 8.3 % 0-10 [facility] Blood platelet mean volumeon 01-15-2023 Platelet mean volume (Bld) [Entitic vol] 9.6 fL 6.2-12.0 [facility] Determination of erythrocyte mean corpuscular volume (MCV)on 01-15-2023 MCV (RBC) [Entitic vol] 90.1 fL 80-94 [facility] Direct bilirubinon Bilirubin.direct [Mass/Vol] 0.11 mg/dL 0.00-0.30 [facility] Hematocrit Auto (Bld) [Volum e fraction]on 01-15-2023 Hematocrit (Bld) [Volume fraction] 46.4 % 40-54 [facility] INR in Blood by Coagulation assayon 01-15-2023 INR Coag (Bld) [Relative time] 1.0 {INR} [facility] Laboratory - Chemistry and C hemistry - challengeon 01-15-2023 ALP [Catalytic activity/Vol] 84 U/L 45-117 [facility] ALT [Catalytic activity/Vol] 46 U/L 16-61 [facility] CO2 [Moles/Vol] 26.0 mmol/L 21.0-32.0 [facility] Globulin (S) [Mass/Vol] 3.7 g/dL 2.2-4.2 [facility] Urea nitrogen/Creatinine [Mass ratio] 35.3 mg/mg 10-20 [facility] Laboratory - Coagulationon 0 01-15-2023 aPTT Coag (Bld) [Time] 39.7 s 24.1-36.2 [facility] PT Coag (PPP) [Time] 13.2 s 11.7-14.9 [facility] Laboratory - Hematology and Cell countson 01-15-2023 Erythrocyte distribution width (RBC) [Entitic vol] 43.9 fL 35.1-43.9 [facility] Erythrocyte distribution width (RBC) [Ratio] 13.3 % 11.6-14.6 [facility] Immature granulocytes/100 WBC (Bld) 0.400 % 0.0-0.9 [facility] Comment on above: IG% - Immature Granu locytes (promyelocytes, myelocytes and metamyelocytes) > 1% indicates that a LEFT SHIFT is Present. MCH (RBC) [Entitic mass] 29.9 pg 27.0-32.0 [facility] Nucleated RBC/100 WBC (Bld) [Ratio] 0 % 0-5 [facility] MCHC Auto (RBC) [Mass/Vol]on 01-15-2023 MCHC (RBC) [Mass/Vol] 33.2 g/dL 32-36 [facility] No Panel Informationon 01-15 Estimated GFR (MDRD) Amer 134 mL/min >60 [facility] Comment on above: GFR Calc Estimated GFR (MDRD) Non-Af Amer 111 mL/min >60 [facility] Comment on above: Non- GFR Calc Platelets bldon 01-15-2023 Platelets (Bld) [#/Vol] 222 10*3/uL 150-450 [facility] Serum or plasma albumin paty urement (mass/volume)on 01-15-2023 Albumin [Mass/Vol] 3.8 g/dL 3.2-5.0 [facility] Serum or plasma xuqlg-[id number] protein tumor marker measurement (units/volume)on 01-15-2023 AFP.tumor marker Qn < 1.8 ng/mL 0.0-6.9 [facility] Comment on above: [employer] El ectrochemiluminescence Immunoassay(ECLIA)Values obtained with different assay methods or kits cannotbe used interchangeably. Results cannot be interpreted asabsolute evidence of the presence or absence of malignantdisease.This test is not interpretable in females.Performed at: [facility] [address] [id number] Director: Migel Motta PhD, Phone: [phone] Serum or plasma calcium paty urement (mass/volume)on 01-15-2023 Calcium [Mass/Vol] 9.0 mg/dL 8.5-10.1 [facility] Serum or plasma creatinine m easurement (mass/volume)on 01-15-2023 Creatinine [Mass/Vol] 0.79 mg/dL 0.70-1.30 [facility] Comment on above: The validity of the calculated GFR & GFRAA in patients over 70 years has not been determined. Clinical correlation is essential. Serum or plasma urea nitroge n measurement (mass/volume)on 01-15-2023 Urea nitrogen [Mass/Vol] 28 mg/dL 7-18 [facility] Thin prep Papanicolaou smear with manual screeningon 01-15-2023 Thin prep Papanicolaou smear with manual screening 22 U/L 15-37 [facility] Thin prep Papanicolaou smear with manual screening 7 5-15 [facility] JO SCREEN IFAOrdered By: Lele Montoya on 10-26-2022 Interpretation and review of laboratory results [facility] [Titer] 1:80 Abnormal (none) [facility] pattern (S) [Interp] Speckled [facility] Nuclear Ab pattern IF (S) [Interp] Positive [facility] PHOSPHATIDYLETHANOL (PETH), WHOLE BLOOD QUANTITATIVEon 10-26-2022 Clinical outside sales engineer review Edmundo (Unsp spec) [Interp] Negative [facility] Comment on above: ADDITIONAL INFORMATION This report is intended for use in clinical monitoring and management of patients. It is not intended for use in employment-related testing. This test was developed and its performance characteristics determined by [facility] in a manner consistent with CLIA requirements. This test has not been cleared or approved by the U.S. Food and Drug Administration. Test Performed by: [facility] [address] [place] [address] Learning Manager: Dane Hawkins M.D. Ph.D.; CLIA# [id number] PEth 16:0/18:1 (POPEth) <10 [facility] Comment on above: Phosphatidylethanol (PEth) homologues result interpretation PEth 16:0/18:1 (POPEth) Less than 10 ng/mL: Not detected 10 - 19 ng/mL: Abstinence or light alcohol consumption (<2 drinks per day for several days a week) 20 - 200 ng/mL: Moderate alcohol consumption (up to 4 drinks per day for several days a week) Greater than 200 ng/mL: Heavy alcohol consumption or chronic alcohol use (at least 4 drinks per day several days a week) (Reference: Concha Childers and Oscar Borden 2018 J. Forensic Sci) PEth 16:0/18:2 (PLPEth) <10 O [facility] Comment on above: PEth 16:0/18:2 (PLPE th) Reference ranges are not well established [facility] AFP TUMOR MARKERon 3 AFP.tumor marker [Mass/Vol] ng/mL NINF - 8.1 ng/mL [facility] Comment on above: This test was perfor med on the [employer] Immunoassay platform by [employer] which is a two-site sandwich chemiluminescent immunoassay. It is important to note that assays using different manufacturers and/or methods may not be comparable. Interpretation and review of laboratory results Normal [facility] CHEM 6 (LYTES, BUN CREA)on 0 10-23-2022 Anion gap [Moles/Vol] 12 mmol/L 7 - 17 mmol/L [facility] Chloride [Moles/Vol] 103 mmol/L 98 - 10 8 mmol/L [facility] CO2 [Moles/Vol] 31 mmol/L 21 - 31 mmol/L [facility] Creatinine [Mass/Vol] 0.63 mg/dL Low 0.70 - 1.30 mg/dL [facility] GFR/1.73 sq M.predicted CKD-EPI (S/P/Bld) [Vol rate/Area] - PINF [facility] Comment on above: Reported eGFR is bas ed on the CKD-EPI 2020 equation using creatinine, age, and sex. Potassium [Moles/Vol] 4.1 mmol/L 3.5 - 5.0 mmol/L [facility] Sodium [Moles/Vol] 142 mmol/L 135 - 145 mmol/L [facility] Urea nitrogen [Mass/Vol] 16 mg/dL 7 - 25 mg/dL [facility] Urea nitrogen/Creatinine [Mass ratio] 25 mg/mg [facility] Chronic hepatitis differenti ation between hepatitis B and C virus panelon 10-23-2022 HBV core IgG+IgM Ql (S) Negative Negative [facility] HBV surface Ab IA Ql (S) Positive Abnormal Negative [facility] Comment on above: A positive result in dicates immunity through past immunization or prior infection. HBV surface Ag Ql (S) Negative Negative [facility] HCV Ab Ql (S) Negative Negative [facility] Interpretation and review of laboratory results Abnormal [facility] FERRITINon 10-23-2022 Ferritin [Mass/Vol] 97.8 ng/mL 22.0 - 322.0 ng/mL [facility] Interpretation and review of laboratory results Normal [facility] HEP A AB, TOTAL (IGG+IGM)Ord ered By: Nena Osullivan on 10-23-2022 HAV IgG+IgM Ql (S) Negative Negative [facility] Interpretation and review of laboratory results [facility]on Albumin [Mass/Vol] 4.3 g/dL 3.5 - 5.0 g/dL [facility] ALP [Catalytic activity/Vol] 65 U/L 32 - 126 U/L [facility] ALT [Catalytic activity/Vol] 21 U/L 10 - 52 U/L [facility] AST [Catalytic activity/Vol] 12 U/L 10 - 39 U/L [facility] Bilirubin [Mass/Vol] 0.6 mg/dL NINF - 1.5 mg/dL [facility] Bilirubin.direct [Mass/Vol] 0.1 mg/dL NINF - 0.3 mg/dL [facility] Protein [Mass/Vol] 6.8 g/dL 6.4 - 8.3 g/dL [facility] IMMUNOGLOBULINS IGG IGA IGMo n 10-23-2022 IgA [Mass/Vol] 247 mg/dL 66 - 433 mg/dL [facility] IgG [Mass/Vol] 873 mg/dL 600 - 1714 mg/dL [facility] IgM [Mass/Vol] 40 mg/dL Low 45 - 281 mg/dL [facility] IRON/IRON BINDING/TRANSFERRI Non 10-23-2022 Iron [Mass/Vol] 74 ug/dL [facility] Iron binding capacity [Mass/Vol] 358 [facility] Iron saturation [Mass fraction] 21 % 20 - 55 % [facility] Transferrin [Mass/Vol] 286 mg/dL 200 - 400 mg/dL [facility] No Panel Informationon 10-23 Interpretation and review of laboratory results Abnormal [facility] Interpretation and review of laboratory results Normal [facility] PT,INR,PTTon 10-23-2022 aPTT Coag (PPP) [Time] 41.5 s High OS [facility] INR Coag (Bld) [Relative time] 1.0 {INR} 0.9 - 1.1 [facility] Interpretation and review of laboratory results Abnormal [facility] PT Coag (PPP) [Time] 13.2 s [facility] - [facility] and C hemistry - challengeOrdered By: Dr. White on 10-19-2022 Free T4 [Mass/Vol] 0.99 ng/dL 0.76-1.46 [facility] No Panel InformationOrdered By: Dr. White on 10-19-2022 Thyroid Stimulating Hormone (TSH) 2.59 uIU/mL 0.358-3.74 [facility] Whole blood hemoglobin A1c/t otal hemoglobin ratio (mass fraction)Ordered By: Dr. White on 10-19-2022 HbA1c (Bld) [Mass fraction] 7.0 % 3.8-5.6 [facility] Comment on above: Normal < 5.7 % Predi abetic 5.7 - 6.4 % Diabetic >or= 6.5 % Please note range changes. INR in Blood by Coagulation assayOrdered By: Ivy Frankel on 08-06-2022 INR Coag (Bld) [Relative time] 0.9 {INR} [facility] Laboratory - CoagulationOrde red By: Ivy Frankel on 08-06-2022 aPTT Coag (Bld) [Time] 26.4 s 24.1-36.2 [facility] PT Coag (PPP) [Time] 12.3 s 11.7-14.9 [facility] Platelets bldOrdered By: July Frankel on 08-06-2022 Platelets (Bld) [#/Vol] 194 10*3/uL 150-450 [facility] Ova and parasitesOrdered By: Ivy Frankel on 07-27-2022 Ova and parasites identified LM Nom (Unsp spec) [facility] Absolute lymphocyte countOrd ered By: Ivy Frankel on 07-20-2022 Lymphocytes Auto (Unsp spec) [#/Vol] 1.50 10*3/uL 0.83-4.51 [facility] Albumin Elph [Mass/Vol]Order ed By: Ivy Frankel on 07-20-2022 Albumin [Mass/Vol] 3.7 g/dL 2.9-4.4 [facility] Atypical perinuclear antineu trophil cytoplasmic antibodies measurementOrdered By: Ivy Frankel on 07-20-2022 Neutrophil cytoplasmic Ab.perinuclear.atypical IF (S) [Titer] <1:20 titer Neg:<1:20 [facility] Comment on above: Please Note: Specime n is lipemic.The atypical pANCA pattern has been observed in asignificant percentage of patients with ulcerative colitis,primary sclerosing cholangitis and autoimmune hepatitis.Performed at: - [facility] [address] [id number] Director: Migel Motta PhD, Phone: [phone] at: - [facility] [address] [id number] Director: Akila Colon MD, Phone: [phone] Basophil percentageOrdered B y: Ivy Frankel on 07-20-2022 Basophil percentage < 0.2 AI 0.0-0.9 [facility] Basophils/100 WBC (Bld) 0.4 % 0-1 [facility] Bilirubin [Mass/Vol] 0.70 mg/dL 0.20-1.00 [facility] Comment on above: Slight Lipemia, Resu lt may be falsely increased. For patients on eltrombopag therapy, use of Dimension [place] TBIL is not recommended. Chloride [Moles/Vol] 95 mmol/L 98-107 [facility] Eosinophils/100 WBC (Bld) 0.8 % 0-5 [facility] Glucose [Mass/Vol] 499 mg/dL 74-106 [facility] Comment on above: Slight Lipemia, Resu lt may be falsely increased.Glucose result greater than or equal to 200 mg/dLsuggests DIABETES MELLITUS per A.D.A. criteria. LDH [Catalytic activity/Vol] 185 U/L 87-241 [facility] Comment on above: Slight Hemolysis, Re sult may be falsely increased.-Slight Lipemia, Result may be falsely increased. Neutrophils (Bld) [#/Vol] 2.8 10*3/uL 2.0-7.7 [facility] Neutrophils/100 WBC (Bld) 57.9 % 47-70 [facility] Potassium [Moles/Vol] 4.6 mmol/L 3.5-5.1 [facility] Comment on above: Slight Hemolysis, Re sult may be falsely increased.-Slight Lipemia, Result may be falsely increased. Protein [Mass/Vol] 7.8 g/dL 6.4-8.2 [facility] Sodium [Moles/Vol] 132 mmol/L 136-145 [facility] WBC (Bld) [#/Vol] 4.9 10*3/uL 4.4-11.0 [facility] Blood erythrocytes count (nu mber/volume)Ordered By: Ivy Frankel on 07-20-2022 RBC (Bld) [#/Vol] 5.05 10*6/uL 4.6-6.2 [facility] Blood hemoglobin measurement (mass/volume)Ordered By: Ivy Frankel on 07-20-2022 Hemoglobin (Bld) [Mass/Vol] 15.8 g/dL 13.0-16.5 [facility] Blood lymphocytes/100 leukoc ytesOrdered By: Ivy Frankel on 07-20-2022 Lymphocytes/100 WBC (Bld) 30.8 % 19-41 [facility] Blood monocytes/100 leukocyt esOrdered By: Ivy Frankel on 07-20-2022 Monocytes/100 WBC (Bld) 9.7 % 0-10 [facility] Blood platelet mean volumeOr dered By: Ivy Frankel on 07-20-2022 Platelet mean volume (Bld) [Entitic vol] 10.2 fL 6.2-12.0 [facility] Determination of erythrocyte mean corpuscular volume (MCV)Ordered By: Ivy Frankel on 07-20-2022 MCV (RBC) [Entitic vol] 92.9 fL 80-94 [facility] Erythrocyte sedimentation ra teOrdered By: Ivy Frankel on 07-20-2022 ESR (Bld) [Velocity] 5 mm/h 0-20 [facility] Hematocrit Auto (Bld) [Volum e fraction]Ordered By: Ivy Frankel on 07-20-2022 Hematocrit (Bld) [Volume fraction] 46.9 % 40-54 [facility] Interpretation of serum or p lasma protein pattern by immunofixation (narrative resultOrdered By: Ivy Frankel on 07-20-2022 Protein Fractions Immunofixation Edmundo [Interp] See comment [facility] Comment on above: NOT OBSERVED Laboratory - Chemistry and C hemistry - challengeOrdered By: Ivy Frankel on 07-20-2022 ALP [Catalytic activity/Vol] 85 U/L 45-117 [facility] ALT [Catalytic activity/Vol] 46 U/L 16-61 [facility] CO2 [Moles/Vol] 26.0 mmol/L 21.0-32.0 [facility] Comment on above: Slight Lipemia, Resu lt may be falsely increased. Urea nitrogen/Creatinine [Mass ratio] 18.3 mg/mg 10-20 [facility] Laboratory - Hematology and Cell countsOrdered By: Ivy Frankel on 07-20-2022 Erythrocyte distribution width (RBC) [Entitic vol] 43.8 fL 35.1-43.9 [facility] Erythrocyte distribution width (RBC) [Ratio] 13.0 % 11.6-14.6 [facility] Immature granulocytes/100 WBC (Bld) 0.400 % 0.0-0.9 [facility] Comment on above: IG% - Immature Granu locytes (promyelocytes, myelocytes and metamyelocytes) > 1% indicates that a LEFT SHIFT is Present. MCH (RBC) [Entitic mass] 31.3 pg 27.0-32.0 [facility] Nucleated RBC/100 WBC (Bld) [Ratio] 0 % 0-5 [facility] MCHC Auto (RBC) [Mass/Vol]Or dered By: Ivy Frankel on 07-20-2022 MCHC (RBC) [Mass/Vol] 33.7 g/dL 32-36 [facility] No Panel InformationOrdered By: Ivy Frankel on 07-20-2022 Stool Calprotectin <16 ug/g 0-120 [facility] Comment on above: Concentration Interp retation Follow-Up<16 - 50 ug/g Normal None>50 -120 ug/g Borderline Re-evaluate in 4-6 weeks >120 ug/g Abnormal Repeat as clinically indicatedPerformed at: [facility] [id number] Director: Migel Motta PhD, Phone: [phone] at: [address] [id number] Director: Akila Colon MD, Phone: [phone] Stool Neutral Fats Normal . [facility] Comment on above: Normal (<60 Droplets /HPF) Stool Pancreatic Elastase 358 >200 [facility] Comment on above: Result Units: ug Kadi st./g Severe Pancreatic Insufficiency: <100 Moderate Pancreatic Insufficiency: 100 - 200 Normal: >200 Miscellaneous Test See comment [facility] Comment on above: TEST RESULT LIMITSIB D Expanded PanelgASCA 32 units 0-50 Negative <45 Equivocal 45 - 50 Positive >50ACCA 78 units 0-90 Negative <80 Equivocal 80 - 90 Positive >90ALCA 10 units 0-60 Negative <55 Equivocal 55 - 60 Positive >60AMCA 43 units 0-100 Negative < 90 Equivocal 90 - 100 Positive >100 This test was developed and its performance characteristics determined by [facility]. It has not been cleared or approved by the Food and Drug Administration. The FDA has determined that such clearance or approval is not necessary.Atypical pANCA Negative NegativeCommentsPattern is not suggestive of Inflammatory Bowel Disease. ____ TESTING PERFORMED AT [facility]. ORIGINAL REPORT ON FILE IN LAB CONTAINS ADDITIONAL TEST SITE INFORMATION. Addendum Document Comment . [facility] Comment on above: Protein electrophore sis scan will follow via computer,mail, or materials management clerk delivery. Centromere B Antibody <0.2 AI 0.0-0.9 [facility] Endomysial IgA Antibody Negative Negative [facility] Comment on above: Please Note: Specime n is lipemic. Estimated GFR (MDRD) Amer 120 mL/min >60 [facility] Comment on above: GFR Calc Estimated GFR (MDRD) Non-Af Amer 99 mL/min >60 [facility] Comment on above: Non- GFR Calc Immunoglobulin E 99 IU/mL 6-495 [facility] BELL PERSON Antibody 0.2 AI 0.0-0.9 [facility] Platelets bldOrdered By: July Frankel on 07-20-2022 Platelets (Bld) [#/Vol] 218 10*3/uL 150-450 [facility] Qualitative fecal fat or lip idsOrdered By: Ivy Frankel on 07-20-2022 Fat Ql (Stl) Normal . [facility] Comment on above: Normal (<100 Droplet s/HPF) Serum DNA double strand anti body assay (units/volume)Ordered By: Ivy Frankel on 07-20-2022 DNA double strand Ab Qn (S) 1 [IU]/mL 0-9 [facility] Comment on above: Negative <5 Equivoca l 5 - 9 Positive >9 Serum Arlene-1 antibody assay (u nits/volume)Ordered By: Ivy Frankel on 07-20-2022 Arlene-1 extractable nuclear Ab Qn (S) <0.2 AI 0.0-0.9 [facility] Serum Scl-70 extractable nuc lear antibody assay (units/volume)Ordered By: Ivy Frankel on 07-20-2022 SCL-70 extractable nuclear Ab Qn (S) <0.2 AI 0.0-0.9 [facility] Serum Borden extractable nucl ear antibody detectionOrdered By: Ivy Frankel on 07-20-2022 Borden extractable nuclear Ab Ql (S) <0.2 AI 0.0-0.9 [facility] Serum [id number]-[id number]-tavmavuh measu rement by electrophoresisOrdered By: Ivy Frankel on 07-20-2022 Alpha 1 globulin Elph [Mass/Vol] 0.2 g/dL 0.0-0.4 [facility] Alpha 1 globulin Elph [Mass/Vol] 1.1 g/dL 0.4-1.0 [facility] Serum classic neutrophil cyt oplasmic antibody assay (units/volume)Ordered By: Ivy Frankel on 07-20-2022 Neutrophil cytoplasmic Ab.classic Qn (S) <1:20 titer Neg:<1:20 [facility] Comment on above: Please Note: Specime n is lipemic. Serum globulin measurement ( mass/volume)Ordered By: Ivy Frankel on 07-20-2022 Globulin (S) [Mass/Vol] 3.6 g/dL 2.2-3.9 [facility] Serum or plasma C reactive p rotein measurement (mass/volume)Ordered By: Ivy Frankel on 07-20-2022 CRP [Mass/Vol] mg/L 0.0-3.0 [facility] Comment on above: C-Reactive Protein ( CRP) provides useful information for thediagnosis, therapy and monitoring of inflammatory processesand associated diseases. For the evaluation of Relative Riskfor Cardiovascular Disease, a High Sensitivity CRP (HSCRP)should be ordered. Serum or plasma IgA measurem ent (mass/volume)Ordered By: Ivy Frankel on 07-20-2022 IgA [Mass/Vol] 307 mg/dL 90-386 [facility] Serum or plasma IgG measurem ent (mass/volume)Ordered By: Ivy Frankel on 07-20-2022 IgG [Mass/Vol] 827 mg/dL 603-1613 [facility] Serum or plasma IgM measurem ent (mass/volume)Ordered By: Ivy Frankel on 07-20-2022 IgM [Mass/Vol] 51 mg/dL 20-172 [facility] Serum or plasma albumin paty urement (mass/volume)Ordered By: Ivy Frankel on 07-20-2022 Albumin [Mass/Vol] 4.0 g/dL 3.2-5.0 [facility] Serum or plasma albumin/glob ulin mass ratioOrdered By: Ivy Frankel on 07-20-2022 Albumin/Globulin [Mass ratio] 1.1 {ratio} 0.9-2.4 [facility] Serum or plasma beta globuli n measurement by electrophoresis (mass/volume)Ordered By: Ivy Frankel on 07-20-2022 Beta globulin Elph [Mass/Vol] 1.3 g/dL 0.7-1.3 [facility] Serum or plasma calcium paty urement (mass/volume)Ordered By: Ivy Frankel on 07-20-2022 Calcium [Mass/Vol] 9.4 mg/dL 8.5-10.1 [facility] Comment on above: Slight Lipemia, Resu lt may be falsely increased. Serum or plasma creatinine m easurement (mass/volume)Ordered By: Ivy Frankel on 07-20-2022 Creatinine [Mass/Vol] 0.88 mg/dL 0.70-1.30 [facility] Comment on above: Slight Lipemia, Resu lt may be falsely increased.The validity of the calculated GFR & GFRAA in patients over 70 years has not been determined. Clinical correlation is essential. Serum or plasma gamma globul in measurement by electrophoresis (mass/volume)Ordered By: Ivy Frankel on 07-20-2022 Gamma globulin Elph [Mass/Vol] 0.9 g/dL 0.4-1.8 [facility] Serum or plasma immunoelectr ophoresis interpretation (nominal result)Ordered By: Ivy Frankel on 07-20-2022 Interpretation IEP [Interp] Comment . [facility] Comment on above: No monoclonality det ected. Serum or plasma urea nitroge n measurement (mass/volume)Ordered By: Ivy Frankel on 07-20-2022 Urea nitrogen [Mass/Vol] 16 mg/dL 7-18 [facility] Serum perinuclear neutrophil cytoplasmic antibody titer by immunofluorescenceOrdered By: Ivy Frankel on 07-20-2022 Neutrophil cytoplasmic Ab.perinuclear IF (S) [Titer] <1:20 titer Neg:<1:20 [facility] Comment on above: Please Note: Specime n is lipemic.The presence of positive fluorescence exhibiting P-ANCA orC-ANCA patterns alone is not specific for the diagnosis ofWegener's Granulomatosis (WG) or microscopic polyangiitis.Decisions about treatment should not be based solely onANCA IFA results. The [employer] ANCA Group Consensusrecommends follow up testing of positive sera with both HI-3 and MPO-ANCA enzyme immunoassays. As many as 5% serumsamples are positive only by EIA. Ref. AM J Clin [id number];111:507-513. Serum tissue transglutaminas e IgA antibody assay (units/volume)Ordered By: Ivy Frankel on 07-20-2022 tTG IgA Qn (S) <2 U/mL 0-3 [facility] Comment on above: Please Note: Specime n is lipemic. Negative 0 - 3 Weak Positive 4 - 10 Positive >10 Tissue Transglutaminase (tTG) has been identified as the endomysial antigen. Studies have demonstr- ated that endomysial IgA antibodies have over 99% specificity for gluten sensitive enteropathy. Thin prep Papanicolaou smear with manual screeningOrdered By: Ivy Frankel on 07-20-2022 Thin prep Papanicolaou smear with manual screening 22 U/L 15-37 [facility] Thin prep Papanicolaou smear with manual screening 11 5-15 [facility] Thin prep Papanicolaou smear with manual screening 1.1 0.7-1.7 [facility] Total protein bloodOrdered B y: Ivy Frankel on 07-20-2022 Protein [Mass/Vol] 7.3 g/dL 6.0-8.5 [facility] Glucose Glucometer (BldC) [M ass/Vol]Ordered By: Yung Tate on 07-08-2022 Glucose [Mass/Vol] 298 mg/dL 74-106 [facility] Comment on above: MANAGEMENT OF PATIEN T CARE PER NURSING PROTOCOL Basophil percentageOrdered B y: Ivy Frankel on 05-29-2022 Basophil percentage < 0.9 mg/dL 0.70-1.30 [facility] No Panel InformationOrdered By: Ivy Frankel on 05-29-2022 Bedside Estimated GFR (eGFR) > 60.0000 mL/min >60 [facility] Absolute lymphocyte counton 02-13-2022 Lymphocytes Auto (Unsp spec) [#/Vol] 1.65 10*3/uL 0.83-4.51 [facility] Work Phone: Basophil percentageon 2021 Basophils/100 WBC (Bld) 0.4 % 0-1 [facility] Work Phone: Bilirubin [Mass/Vol] 0.60 mg/dL 0.20-1.00 [facility] Work Phone: Comment on above: For patients on eltr ombopag therapy, use of Dimension [place] TBIL is not recommended. Chloride [Moles/Vol] 101 mmol/L 98-107 [facility] Work Phone: Eosinophils/100 WBC (Bld) 1.3 % 0-5 [facility] Work Phone: Glucose [Mass/Vol] 248 mg/dL 74-106 [facility] Work Phone: Comment on above: Glucose result great er than or equal to 200 mg/dLsuggests DIABETES MELLITUS per A.D.A. criteria. Neutrophils (Bld) [#/Vol] 3.1 10*3/uL 2.0-7.7 [facility] Work Phone: Neutrophils/100 WBC (Bld) 57.9 % 47-70 [facility] Work Phone: Potassium [Moles/Vol] 3.8 mmol/L 3.5-5.[address] [facility] [facility] [address] Work Phone: Protein [Mass/Vol] 7.5 g/dL 6.4-8.2 [facility] Work Phone: Sodium [Moles/Vol] 138 mmol/L 136-145 [facility] Work Phone: WBC (Bld) [#/Vol] 5.3 10*3/uL 4.4-11.0 [facility] Work Phone: Blood erythrocytes count (nu mber/volume)on 02-13-2022 RBC (Bld) [#/Vol] 5.19 10*6/uL 4.6-6.2 [facility] Work Phone: Blood hemoglobin measurement (mass/volume)on 02-13-2022 Hemoglobin (Bld) [Mass/Vol] 15.5 g/dL 13.0-16.5 [facility] Work Phone: [phone] Blood lymphocytes/100 leukoc yteson 02-13-2022 Lymphocytes/100 WBC (Bld) 31.0 % 19-41 [facility] Work Phone: [phone] Blood monocytes/100 leukocyt eson 02-13-2022 Monocytes/100 WBC (Bld) 8.8 % 0-10 [facility] Work Phone: Blood platelet mean volumeon 02-13-2022 Platelet mean volume (Bld) [Entitic vol] 9.7 fL 6.2-12.0 [facility] Work Phone: Determination of erythrocyte mean corpuscular volume (MCV)on 02-13-2022 MCV (RBC) [Entitic vol] 93.1 fL 80-94 [facility] Work Phone: Hematocrit Auto (Bld) [Volum e fraction]on 02-13-2022 Hematocrit (Bld) [Volume fraction] 48.3 % 40-54 [facility] Work Phone: Laboratory - Chemistry and C hemistry - challengeon 02-13-2022 ALP [Catalytic activity/Vol] 78 U/L 45-117 [facility] Work Phone: ALT [Catalytic activity/Vol] 31 U/L 16-61 [facility] Work Phone: CO2 [Moles/Vol] 27.0 mmol/L 21.0-32.0 [facility] Work Phone: Free T4 [Mass/Vol] 1.18 ng/dL 0.76-1.46 [facility] Work Phone: Globulin (S) [Mass/Vol] 3.3 g/dL 2.2-4.2 [facility] Work Phone: Urea nitrogen/Creatinine [Mass ratio] 28.5 mg/mg 10-20 [facility] Work Phone: Laboratory - Hematology and Cell countson 02-13-2022 Erythrocyte distribution width (RBC) [Entitic vol] 47.5 fL 35.1-43.9 [facility] Work Phone: Erythrocyte distribution width (RBC) [Ratio] 13.8 % 11.6-14.6 [facility] Work Phone: Immature granulocytes/100 WBC (Bld) 0.600 % 0.0-0.9 [facility] Work Phone: Comment on above: IG% - Immature Granu locytes (promyelocytes, myelocytes and metamyelocytes) > 1% indicates that a LEFT SHIFT is Present. MCH (RBC) [Entitic mass] 29.9 pg 27.0-32.0 [facility] Work Phone: Nucleated RBC/100 WBC (Bld) [Ratio] 0 % 0-5 [facility] Work Phone: MCHC Auto (RBC) [Mass/Vol]on 02-13-2022 MCHC (RBC) [Mass/Vol] 32.1 g/dL 32-36 [facility] Work Phone: No Panel Informationon 02-13 Estimated GFR (MDRD) Amer 147 mL/min >60 [facility] Work Phone: Comment on above: GFR Calc Estimated GFR (MDRD) Non-Af Amer 121 mL/min >60 [facility] Work Phone: Comment on above: Non- GFR Calc Thyroid Stimulating Hormone (TSH) 1.28 uIU/mL 0.358-3.74 [facility] Work Phone: Platelets bldon 02-13-2022 Platelets (Bld) [#/Vol] 242 10*3/uL 150-450 [facility] Work Phone: Serum or plasma albumin paty urement (mass/volume)on 02-13-2022 Albumin [Mass/Vol] 4.2 g/dL 3.2-5.0 [facility] Work Phone: Serum or plasma albumin/glob ulin mass ratioon 02-13-2022 Albumin/Globulin [Mass ratio] 1.3 {ratio} 0.9-2.4 [facility] Work Phone: Serum or plasma calcium paty urement (mass/volume)on 02-13-2022 Calcium [Mass/Vol] 9.2 mg/dL 8.5-10.1 [facility] Work Phone: Serum or plasma creatinine m easurement (mass/volume)on 02-13-2022 Creatinine [Mass/Vol] 0.74 mg/dL 0.70-1.30 [facility] Work Phone: Comment on above: The validity of the calculated GFR & GFRAA in patients over 70 years has not been determined. Clinical correlation is essential. Serum or plasma urea nitroge n measurement (mass/volume)on 02-13-2022 Urea nitrogen [Mass/Vol] 21 mg/dL 7-18 [facility] Work Phone: Thin prep Papanicolaou smear with manual screeningon 02-13-2022 Thin prep Papanicolaou smear with manual screening 15 U/L 15-37 [facility] Work Phone: Thin prep Papanicolaou smear with manual screening 10 5-15 [facility] Work Phone: Whole blood hemoglobin A1c/t otal hemoglobin ratio (mass fraction)on 02-13-2022 HbA1c (Bld) [Mass fraction] 8.6 % 3.8-5.6 [facility] Work Phone: Comment on above: Normal < 5.7 % Predi abetic 5.7 - 6.4 % Diabetic >or= 6.5 % Please note range changes. GLUCOSE POCon 10-15-2021 Glucose [Mass/Vol] 231 mg/dL High 70 - 99 mg/dL [facility] Interpretation and review of laboratory results Abnormal [facility] Poc Sample Type CAPBL [facility] Test performed at ad dress of the patient encounter. [facility] Glucose [Mass/Vol] 278 mg/dL High 70 - 99 mg/dL [facility] Interpretation and review of laboratory results Abnormal [facility] Poc Sample Type CAPBL [facility] Test performed at ad dress of the patient encounter. [facility] Glucose [Mass/Vol] 227 mg/dL High 70 - 99 mg/dL [facility] Comment on above: Notified RNread back Interpretation and review of laboratory results Abnormal [facility] Poc Sample Type CAPBL [facility] Test performed at ad dress of the patient encounter. [facility] Glucose [Mass/Vol] 211 mg/dL High 70 - 99 mg/dL [facility] Interpretation and review of laboratory results Abnormal [facility] Poc Sample Type CAPBL [facility] Test performed at ad dress of the patient encounter. [facility] Glucose [Mass/Vol] 253 mg/dL High 70 - 99 mg/dL [facility] Interpretation and review of laboratory results Abnormal [facility] Poc Sample Type VENO [facility] Test performed at ad dress of the patient encounter. [facility] PT,INR,PTTon 10-15-2021 aPTT Coag (PPP) [Time] 27.9 s OS [facility] INR Coag (Bld) [Relative time] 1.0 {INR} [facility] Interpretation and review of laboratory results Normal [facility] PT Coag (PPP) [Time] 12.6 s [facility] ECGOrdered By: Cezar Moscoso on [facility] Work Phone: CHEM 6 (LYTES, BUN CREA)on 0 10-03-2021 Anion gap [Moles/Vol] 15 mmol/L 7 - 17 mmol/L [facility] Chloride [Moles/Vol] 101 mmol/L 98 - 10 8 mmol/L [facility] CO2 [Moles/Vol] 27 mmol/L 21 - 31 mmol/L [facility] Creatinine [Mass/Vol] 0.79 mg/dL 0.70 - 1.30 mg/dL [facility] GFR/1.73 sq M.predicted CKD-EPI (S/P/Bld) [Vol rate/Area] >90 >=60 mL/min/1.7 3m2 [facility] Comment on above: Reported eGFR is bas ed on the CKD-EPI 2020 equation using creatinine, age, and sex. Potassium [Moles/Vol] 4.5 mmol/L 3.5 - 5.0 mmol/L [facility] Sodium [Moles/Vol] 138 mmol/L 135 - 145 mmol/L [facility] Urea nitrogen [Mass/Vol] 17 mg/dL 7 - 25 mg/dL [facility] Urea nitrogen/Creatinine [Mass ratio] 22 mg/mg [facility] HEMOGLOBIN [id number] By: Fr letty Green on 10-03-2021 Average glucose Estimated from glycated hemoglobin (Bld) [Mass/Vol] 203 mg/dL [facility] HbA1c (Bld) [Mass fraction] 8.7 % High 4.7 - 5.6 % [facility] Interpretation and review of laboratory results Abnormal [facility] XR Shoulder - left 2 Viewson 09-12-2021 IMPRESSION: Findings suggestive of chronic rotator cuff pathology. Degenerative changes at acromioclavicular joint. OLOGY EXAM: XR SHOULDER LE FT 4 VIEWS, 09/12/2021 11:09 AM CLINICAL INDICATIONS: Left shoulder pain RELEVANT CLINICAL HISTORY: M25.512:Left shoulder pain, unspecified chronicity [facility], [facility], Axillary, Scap Y; COMPARISON: MRI from outside facility dated 08/21/2021 FINDINGS: 4 images obtained. Soft Tissue: No soft tissue swelling evident. Bone: No acute osseous abnormality is identified. Subcortical cysts at the greater tuberosity of humerus. Joint: Acromioclavicular and glenohumeral joints are anatomically aligned. Degenerative changes at acromioclavicular joint. Moderate joint space loss with osteophyte formation. RADIOLOGY Mery Jimenez MD - 09/12/2021 EXAM: XR SHOULDER LEFT 4 VIEWS, 09/12/2021 11:09 AM CLINICAL INDICATIONS: Left shoulder pain RELEVANT CLINICAL HISTORY: M25.512:Left shoulder pain, unspecified chronicity [facility], [facility], Axillary, Scap Y; COMPARISON: MRI from outside facility dated 08/21/2021 FINDINGS: 4 images obtained. Soft Tissue: No soft tissue swelling evident. Bone: No acute osseous abnormality is identified. Subcortical cysts at the greater tuberosity of humerus. Joint: Acromioclavicular and glenohumeral joints are anatomically aligned. Degenerative changes at acromioclavicular joint. Moderate joint space loss with osteophyte formation. IMPRESSION IMPRESSION: Findings suggestive of chronic rotator cuff pathology. Degenerative changes at acromioclavicular joint. Healthcare System Radiology Study observation (narrative) [facility] XR Shoulder - left 2 ViewsOr dered By: Mery Jimenez on 09-12-2021 [facility] Work Phone: Basophil percentageon 2021 Bilirubin [Mass/Vol] 0.70 mg/dL 0.20-1.00 [facility] Work Phone: Comment on above: For patients on eltr ombopag therapy, use of Dimension [place] TBIL is not recommended. Cholesterol [Mass/Vol] 243 mg/dL <200 [facility] Work Phone: Comment on above: <200 mg/dL Desirable 200-240 mg/dL Borderline >240 mg/dL High Risk Protein [Mass/Vol] 7.4 g/dL 6.4-8.2 [facility] Work Phone: Triglyceride [Mass/Vol] 666 mg/dL [facility] Work Phone: Comment on above: The drugs N-Acetylcy steine and Metamizole may falsely depress this assay. TRIGLYCERIDE IS GREATER THAN 400 mg/dL. LDL RESULT IS INVALID AND WILL NOT BE REPORTED.Serum Triglycerides Reference Interval Normal <150 mg/dL Borderline high 150 - 199 mg/dL High 200 - 499 mg/dL Very High > or = 500 mg/dL Direct bilirubinon 2 Bilirubin.direct [Mass/Vol] 0.15 mg/dL 0.00-0.30 [facility] Work Phone: Laboratory - Chemistry and C hemistry - challengeon 09-11-2021 ALP [Catalytic activity/Vol] 77 U/L 45-117 [facility] Work Phone: ALT [Catalytic activity/Vol] 47 U/L 16-61 [facility] Work Phone: Free T4 [Mass/Vol] 1.44 ng/dL 0.76-1.46 [facility] Work Phone: Globulin (S) [Mass/Vol] 3.4 g/dL 2.2-4.2 [facility] Work Phone: No Panel Informationon 09-11 Thyroid Stimulating Hormone (TSH) 0.17 uIU/mL 0.358-3.74 [facility] Work Phone: Urine Microalbumin/Creatinine Ratio 25.7 mg/g CRE <30 [facility] Work Phone: Serum or plasma albumin paty urement (mass/volume)on 09-11-2021 Albumin [Mass/Vol] 4.0 g/dL 3.2-5.0 [facility] Work Phone: Serum or plasma cholesterol in HDL measurement (mass/volume)on 09-11-2021 Cholesterol in HDL [Mass/Vol] 36 mg/dL [facility] Work Phone: Comment on above: The drugs N-Acetylcy steine and Metamizole may falsely depress this assay. Reference Range HDL <40 mg/dL Low HDL Cholesterol HDL >or= 60 mg/dL High HDL Cholesterol Serum or plasma cholesterol in VLDL measurement (mass/volume)on 09-11-2021 Cholesterol in VLDL [Mass/Vol] TNP [facility] Work Phone: Comment on above: Test not performed Serum or plasma low density lipoprotein (LDL) cholesterol measurement (mass/volume)on 09-11-2021 Cholesterol in LDL [Mass/Vol] [facility] Work Phone: Comment on above: Test not performed Thin prep Papanicolaou smear with manual screeningon 09-11-2021 Thin prep Papanicolaou smear with manual screening 24 U/L 15-37 [facility] Work Phone: Thin prep Papanicolaou smear with manual screening 26.2 mg/L NO RANGE EST. [facility] Work Phone: Urine creatinine measurement (mass/volume)on 09-11-2021 Creatinine (U) [Mass/Vol] 102.00 mg/dL NO RANGE EST. [facility] Work Phone: Whole blood hemoglobin A1c/t otal hemoglobin ratio (mass fraction)on 09-11-2021 HbA1c (Bld) [Mass fraction] 9.1 % 3.8-5.6 [facility] Work Phone: Comment on above: Normal < 5.7 % Predi abetic 5.7 - 6.4 % Diabetic >or= 6.5 % Please note range changes. Absolute lymphocyte counton 08-01-2021 Lymphocytes Auto (Unsp spec) [#/Vol] 2.08 10*3/uL 0.83-4.51 [facility] Work Phone: Basophil percentageon 2021 Basophils/100 WBC (Bld) 0.2 % 0-1 [facility] Work Phone: Chloride [Moles/Vol] 102 mmol/L 98-107 [facility] Work Phone: Eosinophils/100 WBC (Bld) 1.1 % 0-5 [facility] Work Phone: Glucose [Mass/Vol] 236 mg/dL 74-106 [facility] Work Phone: Comment on above: Glucose result great er than or equal to 200 mg/dLsuggests DIABETES MELLITUS per A.D.A. criteria. Neutrophils (Bld) [#/Vol] 3.5 10*3/uL 2.0-7.7 [facility] Work Phone: Neutrophils/100 WBC (Bld) 56.6 % 47-70 [facility] Work Phone: Potassium [Moles/Vol] 4.5 mmol/L 3.5-5.1 [facility] Work Phone: Sodium [Moles/Vol] 136 mmol/L 136-145 [facility] Work Phone: WBC (Bld) [#/Vol] 6.2 10*3/uL 4.4-11.0 [facility] Work Phone: Blood erythrocytes count (nu mber/volume)on 08-01-2021 RBC (Bld) [#/Vol] 5.14 10*6/uL 4.6-6.2 [facility] Work Phone: Blood hemoglobin measurement (mass/volume)on 08-01-2021 Hemoglobin (Bld) [Mass/Vol] 15.7 g/dL 13.0-16.5 [facility] Work Phone: Blood lymphocytes/100 leukoc yteson 08-01-2021 Lymphocytes/100 WBC (Bld) 33.4 % 19-41 [facility] Work Phone: Blood monocytes/100 leukocyt eson 08-01-2021 Monocytes/100 WBC (Bld) 8.4 % 0-10 [facility] Work Phone: Blood platelet mean volumeon 08-01-2021 Platelet mean volume (Bld) [Entitic vol] 9.3 fL 6.2-12.0 [facility] Work Phone: Determination of erythrocyte mean corpuscular volume (MCV)on 08-01-2021 MCV (RBC) [Entitic vol] 90.9 fL 80-94 [facility] Work Phone: Hematocrit Auto (Bld) [Volum e fraction]on 08-01-2021 Hematocrit (Bld) [Volume fraction] 46.7 % 40-54 [facility] Work Phone: INR in Blood by Coagulation assayon 08-01-2021 INR Coag (Bld) [Relative time] 1.0 {INR} [facility] Work Phone: Laboratory - Chemistry and C hemistry - challengeon 08-01-2021 CO2 [Moles/Vol] 28.0 mmol/L 21.0-32.0 [facility] Work Phone: Urea nitrogen/Creatinine [Mass ratio] 27.8 mg/mg 10-20 [facility] Work Phone: Laboratory - Coagulationon 0 08-01-2021 PT Coag (PPP) [Time] 12.5 s 11.7-14.9 [facility] Work Phone: Laboratory - Hematology and Cell countson 08-01-2021 Erythrocyte distribution width (RBC) [Entitic vol] 43.2 fL 35.1-43.9 [facility] Work Phone: Erythrocyte distribution width (RBC) [Ratio] 12.9 % 11.6-14.6 [facility] Work Phone: Immature granulocytes/100 WBC (Bld) 0.300 % 0.0-0.9 [facility] Work Phone: Comment on above: IG% - Immature Granu locytes (promyelocytes, myelocytes and metamyelocytes) > 1% indicates that a LEFT SHIFT is Present. MCH (RBC) [Entitic mass] 30.5 pg 27.0-32.0 [facility] Work Phone: Nucleated RBC/100 WBC (Bld) [Ratio] 0 % 0-5 [facility] Work Phone: MCHC Auto (RBC) [Mass/Vol]on 08-01-2021 MCHC (RBC) [Mass/Vol] 33.6 g/dL 32-36 [facility] Work Phone: No Panel Informationon 08-01 Estimated Creatinine Clearance Calc 137.99 ml/min [facility] Work Phone: Estimated GFR (MDRD) Amer 129 mL/min >60 [facility] Work Phone: Comment on above: GFR Calc Estimated GFR (MDRD) Non-Af Amer 107 mL/min >60 [facility] Work Phone: Comment on above: Non- GFR Calc Ethyl Alcohol Level 3.0 mg/dL [facility] Work Phone: Comment on above: The serum:whole bloo d ethanol ratio is approximately 1.14and varies slightly with hematocrit. Medical Alcohol reference interval and critical value innon-tolerant individuals; 50 - 100 Impairment 100 Intoxication 100 - 250 Severe Poisoning 250 - 400 Deep/possible fatal coma Platelets bldon 08-01-2021 Platelets (Bld) [#/Vol] 214 10*3/uL 150-450 [facility] Work Phone: Serum or plasma calcium paty urement (mass/volume)on 08-01-2021 Calcium [Mass/Vol] 9.1 mg/dL 8.5-10.1 [facility] Work Phone: Serum or plasma creatinine m easurement (mass/volume)on 08-01-2021 Creatinine [Mass/Vol] 0.83 mg/dL 0.70-1.30 [facility] Work Phone: Comment on above: The validity of the calculated GFR & GFRAA in patients over 70 years has not been determined. Clinical correlation is essential. Serum or plasma urea nitroge n measurement (mass/volume)on 08-01-2021 Urea nitrogen [Mass/Vol] 23 mg/dL 7-18 [facility] Work Phone: Thin prep Papanicolaou smear with manual screeningon 08-01-2021 Thin prep Papanicolaou smear with manual screening 6 5-15 [facility] Work Phone: Vital Signs Date Time Vital Sign Value Performing Clinician Facility 03-23-2025 09:19-0400 Diastolic blood pressure 64 mm[Hg] Tulio Cornelius APRN-CASTING MACHINE OPERATOR HELPER Work Phone: [facility] 03-23-2025 09:19-0400 Heart rate 76 /min Tulio Cornelius APRN-CASTING MACHINE OPERATOR HEL[employer] Work Phone: [facility] 03-23-2025 09:19-0400 Systolic blood pressure 97 mm[Hg] Tulio Cornelius APRN-CASTING MACHINE OPERATOR HELPER Work Phone: [facility] 03-23-2025 09:18-0400 Body height 193 cm Tulio Cornelius APRN-CASTING MACHINE OPERATOR HELPER Work Phone: [facility] 03-23-2025 09:18-0400 Body mass index (BMI) [Ratio] 34.91 kg/m2 Tulio Cornelius APRN-CASTING MACHINE OPERATOR HELPER Work Phone: 8(279)850-824938 [address] 03-23-2025 09:18-0400 Body weight 130.09 kg Tulio Cornelius APRN-CASTING MACHINE OPERATOR HELPER Work Phone: 5(458)203-014038 [address] 03-23-2025 09:18-0400 Respiratory rate 18 /min Tulio Cornelius APRN-CASTING MACHINE OPERATOR HELPER Work Phone: 4(586)129-015038 [address] 03-23-2025 09:18-0400 SaO2% (BldA) [Mass fraction] 99 % Tulio Cornelius APRN-CASTING MACHINE OPERATOR HELPER Work Phone: [facility] 03-23-2025 07:35-0400 Body height 182 cm Anshul Hernandez MD Work Phone: [facility] 03-23-2025 07:35-0400 Body mass index (BMI) [Ratio] 36.53 kg/m2 Anshul Hernandez MD Work Phone: [facility] 03-23-2025 07:35-0400 Body weight 121 kg Anshul Hernandez MD Work Phone: [facility] 03-23-2025 07:35-0400 Diastolic blood pressure 57 mm[Hg] Anshul Hernandez MD Work Phone: [facility] 03-23-2025 07:35-0400 Heart rate 86 /min Anshul Hernandez MD Work Phone: [facility] 03-23-2025 07:35-0400 Respiratory rate 18 /min Anshul Hernandez MD Work Phone: [facility] 03-23-2025 07:35-0400 Systolic blood pressure 102 mm[Hg] Anshul Hernandez MD Work Phone: [facility] 11-18-2024 14:40-0400 Body temperature 97.7 [degF] Dr. Jeniffer White DO Work Phone: [facility] 11-18-2024 14:40-0400 Diastolic blood pressure 76 mm[Hg] Dr. Jeniffer White DO Work Phone: [facility] 11-18-2024 14:40-0400 Heart rate 85 /min Dr. Jeniffer White DO Work Phone: [facility] 11-18-2024 14:40-0400 Respiratory rate 16 /min Dr. Jeniffer White DO Work Phone: [facility] 11-18-2024 14:40-0400 SaO2% (BldA) [Mass fraction] 98 % Dr. Jeniffer White DO Work Phone: [facility] 11-18-2024 14:40-0400 Systolic blood pressure 99 mm[Hg] Dr. Jeniffer White DO Work Phone: [facility] 11-18-2024 09:49-0400 Body height 193.[address] Jeniffer White DO Work Phone: [facility] 11-18-2024 09:49-0400 Body mass index (BMI) [Ratio] 35.5 kg/m2 Dr. Jeniffer White DO Work Phone: [facility] 11-18-2024 09:49-0400 Body weight 132.[address] Jeniffer White DO Work Phone: [facility] 11-16-2024 15:54-0400 Body temperature 97.9 [degF] Dr. Jeniffer White DO Work Phone: [facility] 11-16-2024 15:54-0400 Diastolic blood pressure 82 mm[Hg] Dr. Jeniffer White DO Work Phone: [facility] 11-16-2024 15:54-0400 Heart rate 85 /min Dr. Jeniffer White DO Work Phone: [facility] 11-16-2024 15:54-0400 Respiratory rate 18 /min Dr. Jeniffer White DO Work Phone: [facility] 11-16-2024 15:54-0400 SaO2% (BldA) [Mass fraction] 98 % Dr. Jeniffer White DO Work Phone: [facility] 11-16-2024 15:54-0400 Systolic blood pressure 134 mm[Hg] Dr. Jeniffer White DO Work Phone: [facility] 11-16-2024 14:43-0400 Body height 193.[address] Jeniffer White DO Work Phone: [facility] 11-16-2024 14:43-0400 Body mass index (BMI) [Ratio] 36 kg/m2 Dr. Jeniffer White DO Work Phone: [facility] 11-16-2024 14:43-0400 Body weight 134.[address] Jeniffer White DO Work Phone: [facility] 04-21-2024 10:45-0400 Body height 182 cm Anshul Hernandez MD Work Phone: [facility] 04-21-2024 10:45-0400 Body mass index (BMI) [Ratio] 36.53 kg/m2 Anshul Hernandez MD Work Phone: [facility] 04-21-2024 10:45-0400 Body weight 121 kg Anshul Hernandez MD Work Phone: [facility] 04-21-2024 10:45-0400 Diastolic blood pressure 57 mm[Hg] Anshul Hernandez MD Work Phone: 6(266)464-352638 [address] 04-21-2024 10:45-0400 Systolic blood pressure 105 mm[Hg] Anshul Hernandez MD Work Phone: 3(534)005-917074 [place] [address] 04-21-2024 10:35-0400 Diastolic blood pressure 57 mm[Hg] Anshul Hernandez MD Work Phone: 2([phone])663-237174 [place] [address] 04-21-2024 10:35-0400 Heart rate 86 /min Anshul Hernandez MD Work Phone: 3(233)554-264874 [place] [address] 04-21-2024 10:35-0400 Systolic blood pressure 105 mm[Hg] Anshul Hernandez MD Work Phone: 8(069)275-606474 [place] [address] 04-21-2024 10:33-0400 Body height 182.9 cm Anshul Hernandez MD Work Phone: 1(118)152-826074 [place] [address] 04-21-2024 10:33-0400 Body mass index (BMI) [Ratio] 36.35 kg/m2 Anshul Hernandez MD Work Phone: 7([phone])694-624074 [place] [address] 04-21-2024 10:33-0400 Body weight 121.56 kg Anshul Hernandez MD Work Phone: 5(028)206-831374 [place] [address] Comment on above: stated wt 04-21-2024 10:33-0400 Respiratory rate 18 /min Anshul Hernandez MD Work Phone: 9(094)618-534374 [place] [address] 04-21-2024 10:33-0400 SaO2% (BldA) [Mass fraction] 98 % Anshul Hernandez MD Work Phone: 5(142)844-071274 [place] [address] 04-30-2023 22:17-0500 Heart rate 79 /min [facility] 04-30-2023 22:17-0500 Respiratory rate 16 /min [facility] 04-30-2023 22:17-0500 SaO2% (BldA) [Mass fraction] 97 % [facility] 04-30-2023 17:11-0500 Body height 193.04 cm [facility] 04-30-2023 17:11-0500 Body mass index (BMI) [Ratio] 35.4 kg/m2 [facility] 04-30-2023 17:11-0500 Body temperature 98.3 [degF] [facility] 04-30-2023 17:11-0500 Body weight 132.1 kg [facility] 04-30-2023 17:11-0500 Diastolic blood pressure 76 mm[Hg] [facility] 04-30-2023 17:11-0500 Systolic blood pressure 102 mm[Hg] [facility] 04-23-2023 14:11-0400 Body height 193 cm Olivia Borden APRN-CASTING MACHINE OPERATOR HELPER Work Phone: [facility] 04-23-2023 14:11-0400 Body mass index (BMI) [Ratio] 35.86 kg/m2 Olivia Borden APRN-CASTING MACHINE OPERATOR HELPER Work Phone: [facility] 04-23-2023 14:11-0400 Body temperature 97.3 [degF] Olivia Borden [employer] NURSE-CASTING MACHINE OPERATOR HELPER Work Phone: [facility] 04-23-2023 14:11-0400 Body weight 133.63 kg Olivia Borden APRN-CASTING MACHINE OPERATOR HELPER Work Phone: [facility] 04-23-2023 14:11-0400 Diastolic blood pressure 72 mm[Hg] Olivia Borden APRN-CASTING MACHINE OPERATOR HELPER Work Phone: [facility] 04-23-2023 14:11-0400 Heart rate 55 /min Olivia Borden APRN-CASTING MACHINE OPERATOR HELPER Work Phone: [facility] 04-23-2023 14:11-0400 Respiratory rate 16 /min Olivia Borden APRN-CASTING MACHINE OPERATOR HELPER Work Phone: [facility] 04-23-2023 [id number]:110400 SaO2% (BldA) [Mass fraction] 97 % Olivia Borden [employer] NURSE-CASTING MACHINE OPERATOR HELPER Work Phone: [facility] 04-23-2023 14:[id number] Systolic blood pressure 100 mm[Hg] Olivia Borden M[employer] AD[employer]ANCED [employer]ACTICE NURSE-CASTING MACHINE OPERATOR HELPER Work Phone: [facility] 04-23-2023 10:120400 Diastolic blood pressure 62 mm[Hg] Anshul Hernandez MD Work Phone: [facility] 04-23-2023 10:120400 Heart rate 86 /min Anshul Hernandez MD Work Phone: [facility] 04-23-2023 10:120400 Systolic blood pressure 107 mm[Hg] Anshul Hernandez MD Work Phone: [facility] 04-23-2023 [id number] Body height 193 cm Anshul Hernandez MD Work Phone: [facility] 04-23-2023 10:[id number] Body mass index (BMI) [Ratio] 35.42 kg/m2 Anshul Hernandez MD Work Phone: [facility] 04-23-2023 10:[id number] Body weight 132 kg Anshul Hernandez MD Work Phone: [facility] 04-23-2023 10:[id number] Respiratory rate 16 /min Anshul Hernandez MD Work Phone: [facility] 04-23-2023 10:11-0400 SaO2% (BldA) [Mass fraction] 98 % Anshul Hernandez MD Work Phone: [facility] 10-23-2022 08:38-0400 Body height 193 cm Reuben Boyce MD Work Phone: [facility] 10-23-2022 08:38-0400 Body mass index (BMI) [Ratio] 37.61 kg/m2 Reuben Boyce MD Work Phone: [facility] 10-23-2022 08:38-0400 Body weight 140.16 kg Reuben Boyce MD Work Phone: [facility] 10-23-2022 08:38-0400 Diastolic blood pressure 68 mm[Hg] Reuben Boyce MD Work Phone: [facility] 10-23-2022 08:38-0400 Heart rate 74 /min Reuben Boyce MD Work Phone: [facility] 10-23-2022 08:38-0400 Respiratory rate 18 /min Reuben Boyce MD Work Phone: [facility] 10-23-2022 08:38-0400 SaO2% (BldA) [Mass fraction] 98 % Reuben Boyce MD Work Phone: [facility] 10-23-2022 08:38-0400 Systolic blood pressure 94 mm[Hg] Reuben Boyce MD Work Phone: [facility] 09-11-2022 09:25-0400 Diastolic blood pressure 51 mm[Hg] Anshul Hernandez MD Work Phone: [facility] 09-11-2022 09:25-0400 Heart rate 86 /min Anshul Hernandez MD Work Phone: [facility] 09-11-2022 09:25-0400 Systolic blood pressure 98 mm[Hg] Anshul Hernandez MD Work Phone: [facility] 09-11-2022 09:24-0400 Body height 193 cm Anshul Hernandez MD Work Phone: [facility] 09-11-2022 09:24-0400 Body mass index (BMI) [Ratio] 35.67 kg/m2 Anshul Hernandez MD Work Phone: [facility] 09-11-2022 09:24-0400 Body weight 132.9 kg Anshul Hernandez MD Work Phone: [facility] 09-11-2022 09:24-0400 Respiratory rate 18 /min Anshul Hernandez MD Work Phone: [facility] 09-11-2022 09:24-0400 SaO2% (BldA) [Mass fraction] 96 % Anshul Hernandez MD Work Phone: [facility] 08-06-2022 10:26-0500 Diastolic blood pressure 62 mm[Hg] Dr. Jeniffer White Work Phone: [facility] 08-06-2022 10:26-0500 Heart rate 84 /min Dr. Jeniffer White Work Phone: [facility] 08-06-2022 10:26-0500 Respiratory rate 13 /min Dr. Jeniffer White Work Phone: [facility] 08-06-2022 10:26-0500 SaO2% (BldA) [Mass fraction] 92 % Dr. Jeniffer White Work Phone: [facility] 08-06-2022 10:26-0500 Systolic blood pressure 105 mm[Hg] Dr. Jeniffer White Work Phone: [facility] 08-06-2022 09:09-0500 Inhaled oxygen flow rate 1 L/min Dr. Jeniffer White Work Phone: [facility] 08-06-2022 08:26-0500 Body height 193.[address] Jeniffer White Work Phone: [facility] 08-06-2022 08:26-0500 Body mass index (BMI) [Ratio] 34.2 kg/m2 Dr. Jeniffer White Work Phone: [facility] 08-06-2022 08:26-0500 Body temperature 97.8 [degF] Dr. Jeniffer White Work Phone: [facility] 08-06-2022 08:26-0500 Body weight 127.[address] Jeniffer White Work Phone: [facility] 07-22-2022 15:32-0500 Body height 193.[address] Jeniffer White Work Phone: [facility] 07-22-2022 15:32-0500 Diastolic blood pressure 78 mm[Hg] Dr. Jeniffer White Work Phone: [facility] 07-22-2022 15:32-0500 Heart rate 76 /min Dr. Jeniffer White Work Phone: [facility] 07-22-2022 15:32-0500 SaO2% (BldA) [Mass fraction] 91 % Dr. Jeniffer White Work Phone: [facility] 07-22-2022 15:32-0500 Systolic blood pressure 117 mm[Hg] Dr. Jeniffer White Work Phone: [facility] 07-08-2022 08:21-0500 Body temperature 97.4 [degF] Dr. Jeniffer White Work Phone: [facility] 07-08-2022 08:21-0500 Diastolic blood pressure 67 mm[Hg] Dr. Jeniffer White Work Phone: [facility] 07-08-2022 08:21-0500 Heart rate 61 /min Dr. Jeniffer White Work Phone: [facility] 07-08-2022 08:21-0500 Respiratory rate 16 /min Dr. Jeniffer White Work Phone: [facility] 07-08-2022 08:21-0500 SaO2% (BldA) [Mass fraction] 96 % Dr. Jeniffer White Work Phone: [facility] 07-08-2022 08:21-0500 Systolic blood pressure 102 mm[Hg] Dr. Jeniffer White Work Phone: [facility] 07-08-2022 06:49-0500 Body height 193.[address] Jeniffer White Work Phone: [facility] 07-08-2022 06:49-0500 Body mass index (BMI) [Ratio] 35 kg/m2 Dr. Jeniffer White Work Phone: [facility] 07-08-2022 06:49-0500 Body weight 130.[address] Jeniffer White Work Phone: [facility] 02-20-2022 11:27-0400 Diastolic blood pressure 61 mm[Hg] Anshul Hernandez MD Work Phone: [facility] 02-20-2022 11:27-0400 Systolic blood pressure 97 mm[Hg] Anshul Hernandez MD Work Phone: [facility] 02-20-2022 11:26-0400 Body height 193 cm Anshul Hernandez MD Work Phone: [facility] 02-20-2022 11:26-0400 Body mass index (BMI) [Ratio] 34.61 kg/m2 Anshul Hernandez MD Work Phone: [facility] 02-20-2022 11:26-0400 Body weight 128.96 kg Anshul Hernandez MD Work Phone: [facility] 02-20-2022 11:26-0400 Heart rate 87 /min Anshul Hernandez MD Work Phone: [facility] 02-20-2022 11:26-0400 Respiratory rate 18 /min Ansuhl Hernandez MD Work Phone: [facility] 02-20-2022 11:26-0400 SaO2% (BldA) [Mass fraction] 98 % Anshul Hernandez MD Work Phone: [facility] 10-15-2021 11:15-0400 Heart rate 84 /min Osmani Manzanares MD Work Phone: [facility] 10-15-2021 11:15-0400 Respiratory rate 13 /min Osmani Manzanares MD Work Phone: [facility] 10-15-2021 11:15-0400 SaO2% (BldA) [Mass fraction] 97 % Osmani Manzanares MD Work Phone: [facility] 10-15-2021 11:00-0400 Body temperature 98.4 [degF] Osmani Manzanares MD Work Phone: [facility] 10-15-2021 11:00-0400 Diastolic blood pressure 77 mm[Hg] Osmani Manzanares MD Work Phone: [facility] 10-15-2021 11:00-0400 Systolic blood pressure 128 mm[Hg] Osmani Manzanares MD Work Phone: [facility] 10-15-2021 06:00-0400 Body height 193 cm Osmani Manzanares MD Work Phone: [facility] 10-15-2021 06:00-0400 Body mass index (BMI) [Ratio] 36.96 kg/m2 Osmani Manzanares MD Work Phone: [facility] 10-15-2021 06:00-0400 Body weight 137.71 kg Osmani Manzanares MD Work Phone: [facility] 10-03-2021 12:47-0400 Body height 193 cm Lizandro FREED Work Phone: [facility] 10-03-2021 12:47-0400 Body mass index (BMI) [Ratio] 36.03 kg/m2 Lizandro Reyes [employer]ED [employer]ACTICE NURSE-CASTING MACHINE OPERATOR HELPER Work Phone: [facility] 10-03-2021 12:47-0400 Body temperature 97.9 [degF] Lizandro Reyes [employer] HE[employer] ADVANCED PRACTICE NURSE-CASTING MACHINE OPERATOR HELPER Work Phone: [facility] 10-03-2021 12:47-0400 Body weight 134.26 kg Lizandro Reyes M[employer] HEALTH ADVANCED PRACTICE NURSE-CASTING MACHINE OPERATOR HELPER Work Phone: [facility] 10-03-2021 12:47-0400 Diastolic blood pressure 59 mm[Hg] Lizandro Reyes M[employer] HEALTH ADVANCED PRACTICE NURSE-CASTING MACHINE OPERATOR HELPER Work Phone: [facility] 10-03-2021 12:47-0400 Heart rate 81 /min Lizandro Reyes M[employer] HEALTH ADVANCED PRACTICE NURSE-CASTING MACHINE OPERATOR HELPER Work Phone: [facility] 10-03-2021 12:47-0400 Respiratory rate 18 /min Lizandro Reyes M[employer] HEALTH ADVANCED PRACTICE NURSE-CASTING MACHINE OPERATOR HELPER Work Phone: [facility] 10-03-2021 12:47-0400 SaO2% (BldA) [Mass fraction] 94 % Lizandro Reyes M[employer]AL HEALTH ADVANCED PRACTICE NURSE-CASTING MACHINE OPERATOR HELPER Work Phone: [facility] 10-03-2021 12:47-0400 Systolic blood pressure 107 mm[Hg] Lizandro Reyes MENT[employer] HEALTH ADVANCED PRACTICE NURSE-CASTING MACHINE OPERATOR HELPER Work Phone: [facility] 09-19-2021 11:18-0400 Body temperature 97.11 [degF] Al Winter DO Work Phone: [facility] 09-19-2021 11:18-0400 Body weight 133.81 kg Al Winter DO Work Phone: [facility] 09-19-2021 11:18-0400 Diastolic blood pressure 71 mm[Hg] Al Masci DO Work Phone: [facility] 09-19-2021 11:18-0400 Heart rate 80 /min Al Winter DO Work Phone: [facility] 09-19-2021 11:18-0400 Systolic blood pressure 116 mm[Hg] Al Winter DO Work Phone: [facility] 08-01-2021 13:01-0500 Body temperature 98.4 [degF] [facility] Work Phone: 08-01-2021 13:01-0500 Diastolic blood pressure 78 mm[Hg] [facility] Work Phone: 08-01-2021 13:01-0500 Heart rate 88 /min [facility] Work Phone: 08-01-2021 13:01-0500 Respiratory rate 16 /min [facility] Work Phone: 08-01-2021 13:01-0500 SaO2% (BldA) [Mass fraction] 98 % [facility] Work Phone: 08-01-2021 13:01-0500 Systolic blood pressure 134 mm[Hg] [facility] Work Phone: 08-01-2021 08:42-0500 Body height 193.04 cm [facility] Work Phone: 08-01-2021 08:42-0500 Body mass index (BMI) [Ratio] 36.5 kg/m2 [facility] Work Phone: 08-01-2021 08:42-0500 Body weight 136.1 kg [facility] Work Phone: Encounters Encounter Date Encounter Type Care Provider Facility Start: 04-30-2025 ambulatory [facility] Facility: [facility] Start: 04-21-2025 ambulatory [facility] Facility: [facility] Start: 04-09-2025 ambulatory Reynaldo Barker ty:[facility] Start: 03-23-2025 End: 03-23-2025 Office outpatient visit 15 minutes Tulio Cornelius [employer] HE[employer] ADVANCED PRACTICE NURSE-CASTING MACHINE OPERATOR HELPER Work Phone: [facility] Comment on above: Chronic systolic hea rt failure (Primary Dx); Type 2 diabetes mellitus with hyperglycemia, with long-term current use of insulin Start: 03-23-2025 ambulatory TULIO CORNELIUS Faci lity:[facility] Start: 03-23-2025 End: 03-23-2025 Subsequent hospital visit by physician Anshul Hernandez MD Work Phone: Cardiovascular Imaging [facility] Comment on above: Arrived Start: 03-14-2025 ambulatory Jeniffer White Facility: [facility] Start: 03-13-2025 Encounter for preprocedural cardiovascular examination Reynaldo Grant [facility] Start: 02-28-2025 End: 02-28-2025 Telephone encounter Fawad Hilton RN [facility] Comment on above: Cardiac Clearance Start: 02-07-2025 End: 02-07-2025 Telephone encounter Gus ESTEVEZ Work Phone: [facility] Start: 01-09-2025 End: 01-09-2025 Telephone encounter Gus Cadena LG Work Phone: [facility] Comment on above: Results (positive fo r Marfan syndrome) Start: 12-07-2024 End: 12-07-2024 ambulatory Gus ESTEVEZ Work Phone: [facility] Comment on above: Family history of Ma rfan syndrome (Primary Dx); Dilated cardiomyopathy (HCC) Start: 12-07-2024 End: 12-07-2024 Telemedicine consultation with patient Gus ESTEVEZ Work Phone: [facility] Start: 11-20-2024 End: 11-20-2024 Emergency department patient visit FREDY ENAMORADO Facility:[facility] Start: 11-18-2024 End: 11-18-2024 Emergency department patient visit Dr. Jeniffer White DO Work Phone: -Emergency Department Work Phone: Start: 11-16-2024 End: 11-16-2024 Emergency department patient visit Dr. Jeniffer White DO Work Phone: -Emergency Department Work Phone: Start: 10-27-2024 End: 10-27-[address] Jeniffer White DO Work Phone: [facility] Work Phone: Start: 10-27-2024 End: 10-27-[address] Jeniffer White DO -Laboratory [place] Work Phone: Start: 10-27-2024 End: 10-27-2024 ambulatory Jeniffer White Facility:[facility] Start: 08-09-2024 End: 08-09-[address] Jeniffer Villar [place] Work Phone: Start: 08-09-2024 End: 08-09-2024 ambulatory Jeniffer White Facility:[facility] Start: 05-02-2024 End: 05-02-2024 ambulatory SIRIA JOLLY Facility:[facility] Start: 04-21-2024 End: 04-21-2024 Office outpatient visit 15 minutes Anshul Hernandez MD Work Phone: [facility] Comment on above: Chronic systolic hea rt failure (Primary Dx) Start: 04-21-2024 ambulatory JENIFFER WHITE [facility] Start: 04-21-2024 End: 04-21-2024 Subsequent hospital visit by physician Anshul Hernandez MD Work Phone: Cardi[facility] Imaging [facility] Comment on above: Arrived Start: 07-20-2023 End: 07-20-2023 ambulatory [facility] Work Phone: Start: 07-20-2023 End: 07-20-2023 Patient encounter procedure [facility]-Laboratory, [place] Work Phone: Start: 06-17-2023 End: 06-17-2023 ambulatory [facility] Work Phone: Start: 06-17-2023 End: 06-17-2023 Patient encounter procedure [facility] Work Phone: Start: 05-26-2023 End: 05-26-2023 ambulatory [facility] Work Phone: Start: 05-26-2023 End: 05-26-2023 [facility] Start: 04-30-2023 End: 04-30-2023 Emergency department patient visit [facility]-Emergency Department Work Phone: Start: 04-23-2023 End: 04-23-2023 [facility] Comment on above: WILSON (nonalcoholic s teatohepatitis) (Primary Dx) Dilated cardiomyopat hy (Primary Dx) Start: 04-21-2023 End: 04-21-2023 ambulatory [facility] Work Phone: Start: 04-21-2023 End: 04-21-2023 Patient encounter procedure [facility] Work Phone: Start: 01-15-2023 End: 01-15-2023 [facility] Start: 10-23-2022 End: 10-23-2022 Office consultation new/estab patient 80 min Reuben Boyce MD Work Phone: [facility] Comment on above: Liver cirrhosis seco ndary to WILSON (Primary Dx) Start: 10-19-2022 End: 10-19-[address] Jeniffer White Work Phone: [facility] Work Phone: Start: 10-19-2022 End: 10-19-[address] Jeniffer White Work Phone: [facility] Start: 09-11-2022 End: 09-11-2022 Office outpatient visit 25 minutes Anshul Hernandez MD Work Phone: [facility] Comment on above: Dilated cardiomyopat hy (Primary Dx) Start: 08-11-2022 End: 08-11-[address] Jeniffer White Work Phone: [facility] Start: 08-06-2022 End: 08-06-[address] Jeniffer White Work Phone: [facility] Work Phone: Start: 08-06-2022 End: 08-06-[address] Jeniffer White Work Phone: [facility] Start: 07-22-2022 End: 07-22-[address] Jeniffer White Work Phone: [facility] Start: 07-20-2022 End: 07-20-[address] Jeniffer White Work Phone: [facility] Work Phone: Start: 07-20-2022 End: 07-20-[address] Jeniffer White Work Phone: [facility] Start: 07-08-2022 Non-patient / Non-visit Dr. Hunter White Work Phone: [facility] Start: 07-08-2022 End: 07-08-2022 Admission to same day surgery center Dr. Jeniffer White Work Phone: [facility]-Endoscopy Start: 07-08-2022 End: 07-08-[address] Jeniffer White Work Phone: [facility] Work Phone: Start: 06-30-2022 Telephone encounter Brenda Hinds [facility] Comment on above: Insurance Start: 06-29-[address] Jeniffer White Work Phone: [facility]-Physical Therapy Start: 06-19-[address] Jeniffer White Work Phone: [facility]-Physical Therapy Start: 06-19-2022 End: 06-19-[address] Jeniffer White Work Phone: [facility] Work Phone: Start: 06-19-2022 End: 06-19-[address] Jeniffer White Work Phone: [facility] Start: 06-01-2022 End: 06-01-[address] Jeniffer White Work Phone: [facility] Work Phone: Start: 06-01-2022 End: 06-01-[address] Jeniffer White Work Phone: [facility]-Physical Therapy Start: 05-29-2022 End: 05-29-[address] Jeniffer White Work Phone: [facility] Work Phone: Start: 05-29-2022 End: 05-29-[address] [facility] Start: 05-28-2022 End: 05-28-[address] Jeniffer White Work Phone: [facility] Start: 05-27-[address] Jeniffer White Work Phone: [facility]-Physical Therapy Start: 05-22-2022 End: 05-22-2022 Office outpatient visit 25 minutes Osmani Manzanares MD Work Phone: [facility] [place] Comment on above: S/P rotator cuff rep air (Primary Dx) Start: 05-04-2022 End: 05-04-[address] Jeniffer White Work Phone: [facility] G[facility] Start: 03-27-2022 Telephone encounter Al alvarez DO Work Phone: Hematology/Oncology Comment on above: Appointment Start: 02-25-2022 Telephone encounter Anshul Boateng aas, MD Work Phone: [facility] Comment on above: Medication Refill Start: 02-20-2022 End: 02-20-2022 Office outpatient visit 25 minutes Anshul Hernandez MD Work Phone: [facility] Comment on above: Dilated cardiomyopat hy (Primary Dx) Start: 02-16-2022 Registered Recurring [facility]-Physical Therapy Start: 02-13-2022 End: 02-13-2022 ambulatory [facility] Work Phone: Start: 02-13-2022 End: 02-13-2022 Patient encounter procedure [facility] Start: 02-06-2022 End: 02-06-2022 Office outpatient visit 25 minutes Osmani Manzanares MD Work Phone: [facility] Comment on above: S/P rotator cuff rep air (Primary Dx) Start: 12-26-2021 End: 12-26-2021 Postop follow up visit related to original px Osmani Manzanares MD Work Phone: [facility] Comment on above: S/P rotator cuff rep air (Primary Dx) Start: 11-21-2021 End: 11-21-2021 Postop follow up visit related to original px Osmani Manzanares MD Work Phone: [facility] Comment on above: S/P rotator cuff rep air (Primary Dx) Start: 10-27-2021 End: 10-27-2021 Postop follow up visit related to original px Burt Andrea PA-C Work Phone: [facility] Comment on above: S/P rotator cuff rep air (Primary Dx) Start: 10-15-2021 End: 10-15-2021 Preprocedural examination done Osmani Manzanares MD Work Phone: [facility] Periop Start: 10-15-2021 End: 10-15-2021 Subsequent hospital visit by physician Osmani Manzanares MD Work Phone: [facility] Comment on above: Rotator cuff tear Start: 10-03-2021 End: 10-03-2021 Office outpatient visit 40 minutes Lizandro Reyes MENTAL HEALTH ADVANCED PRACTICE NURSE-CASTING MACHINE OPERATOR HELPER Work Phone: Pre-Procedure Evaluation and Assessment Outpatient Care [facility] Comment on above: Preoperative examina tion (Primary Dx); Chronic systolic heart failure; Type 2 diabetes mellitus with hyperglycemia, with long-term current use of insulin; Chronic right shoulder pain Start: 10-03-2021 End: 10-03-2021 Preprocedural examination done Lizandro Reyes MENTAL HEALTH ADVANCED PRACTICE NURSE-CASTING MACHINE OPERATOR HELPER Work Phone: Pre-Procedure Evaluation and Assessment Outpatient Care [facility] Start: 09-19-2021 End: 09-19-2021 ambulatory Al Winter DO Work Phone: Hematology/Oncology Comment on above: 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 Start: 09-12-2021 Telephone encounter Al alvarez DO Work Phone: Hematology/Oncology Comment on above: Patient Question Start: 09-12-2021 End: 09-12-2021 Office outpatient new 45 minutes Osmani Manzanares MD Work Phone: [facility] Comment on above: Left shoulder pain, unspecified chronicity (Primary Dx); Traumatic complete tear of left rotator cuff, initial encounter Start: 09-12-2021 End: 09-12-2021 Subsequent hospital visit by physician Osmani Manzanares MD Work Phone: Imaging [facility] Comment on above: Arrived Start: 09-11-2021 End: 09-11-2021 Patient encounter procedure [facility] [place] Start: 08-21-2021 End: 08-21-2021 Patient encounter procedure [facility]-MRI - [facility] Start: 08-01-2021 End: 08-01-2021 Emergency department patient visit [facility]-Emergency Department Procedures Date Procedure Procedure Detail Performing Clinician Start: 03-23-2025 Echo tthrc r-t 2d w/wom-mode compl spec&colr d Anshul Hernandez MD Work Phone: Start: 11-18-[address] Jeniffer White DO Work Phone: Start: 11-18-2024 MRI of lower extremity Dr. Jeniffer White DO Work Phone: Start: 10-27-2024 Girkg-3-[id number] measurement Dr. Jeniffer White DO Work Phone: Comment on above: [facility] Electrochemiluminescen ce Immunoassay(ECLIA)Values obtained with different assay methods or kits cannotbe used interchangeably. Results cannot be interpreted asabsolute evidence of the presence or absence of malignantdisease.This test is not interpretable in females.Performed at: [address] [id number] Director: Migel Motta PhD, Phone: [phone] Start: 10-27-2024 Urine microalbumin/creatinine ratio measurement Dr. Jeniffer White DO Work Phone: Start: 04-21-2024 Echo tthrc r-t 2d w/wom-mode compl spec&colr d Anshul Hernandez MD Work Phone: Start: 06-17-2023 MRI of lower extremity Start: 05-26-2023 Investigation of transfusion reaction Start: 05-26-2023 Microbial culture, routine Start: 04-30-2023 X-ray of both feet Start: 04-30-2023 Investigation of transfusion reaction Start: 04-30-2023 Microbial culture, routine Start: 08-06-2022 Biopsy/Inj or Needle Placement Dr. Jeniffer White Work Phone: Start: 07-08-[address] Jeniffer White Work Phone: Start: 06-19-[address] Jeniffer osei Work Phone: Start: 06-19-[address] Jeniffer christianson Work Phone: Start: 05-29-2022 Computed tomography of abdomen and pelvis with contrast Dr. Jeniffer White Work Phone: Start: 10-15-2021 Glucose measurement, blood Osmani Manzanares MD Work Phone: Start: 10-15-2021 Glucose measurement, blood Osmani Manzanares MD Work Phone: Start: 10-15-2021 Glucose measurement, blood Osmani Manzanares MD Work Phone: Start: 10-15-2021 Glucose measurement, blood Osmani Manzanares MD Work Phone: Start: 10-15-2021 Glucose measurement, blood Osmani Manzanares MD Work Phone: Start: 10-15-2021 Prothrombin time Lizandro Reyes APRN-CASTING MACHINE OPERATOR HELPER Work Phone: Start: 10-03-2021 Ecg routine ecg w/least 12 lds trcg only w/o i&r Lizandro Reyes [employer] [employer]ACT[employer] NURSE-CASTING MACHINE OPERATOR HELPER Work Phone: Start: 09-12-2021 Radex shoulder complete minimum 2 views Osmani Manzanares MD Work Phone: Start: 08-21-2021 MRI of joint of lower extremity Start: 08-01-2021 CT of thorax with contrast Start: 08-01-2021 Plain x-ray of elbow Start: 08-01-2021 CT of head without contrast Start: 08-01-2021 CT cervical spine without contrast Start: 08-01-2021 Plain X-ray of shoulder Start: 12-07-2019 Adult depression screening assessment Al Winter Work Phone: History of repair of musculotendinous cuff of shoulder S/P rotator cuff repair Burt Andrea PA-C Work Phone: History of repair of musculotendinous cuff of shoulder S/P rotator cuff repair Osmani Manzanares MD Work Phone: History of repair of musculotendinous cuff of shoulder S/P rotator cuff repair Osmani Manzanares MD Work Phone: History of repair of musculotendinous cuff of shoulder S/P rotator cuff repair Osmani Manzanares MD Work Phone: History of repair of musculotendinous cuff of shoulder S/P rotator cuff repair Osmani Manzanares MD Work Phone: Ova OR parasites identification Dr. Jeniffer White Work Phone: Plan of Treatment Date Care Activity Detail Author Start: 11-02-2025 End: 11-02-2025 Patient encounter procedure 11/02/2025 10:30 AM EDT Office Visit [facility] [place] [id number] [phone] Anshul Hernandez MD [address] [place] [phone] [facility] Start: 04-20-2025 End: 04-20-2025 Patient encounter procedure Gastroenterology and Hepatology [facility] Start: 02-19-2025 COVID-19 VACCINE ( season) COVID-19 VACCINE ( season) [facility] Start: 02-19-2025 Influenza vaccination [facility] Start: 11-18-2024 [facility] Start: 11-18-2024 Bacteria identified in Blood by Culture Blood Culture [facility] Start: 11-18-2024 [facility] Start: 11-16-2024 [facility] Start: 04-21-2024 End: 04-21-2024 Patient encounter procedure [facility] Start: 02-20-2024 COVID-19 VACCINE ( season) COVID-19 VACCINE ( season) [facility] Start: 02-20-2024 COVID-19 VACCINE ( season) COVID-19 VACCINE () [facility] Start: 02-20-2024 Influenza vaccination INFLUENZA VACCINE (#1) [facility] Start: 10-29-2023 End: 10-29-2023 Telemedicine consultation with patient 10/29/2023 4:30 PM EDT Telemedicine Gastroenterology and Hepatology [facility] [address] [phone] Reuben Boyce MD [address] [address] Gastroenterology and Hepatology [facility] Start: 10-24-2023 Potassium [Moles/volume] in Serum or Plasma POTASSIUM [facility] Start: 10-20-2023 End: 10-20-2023 Telemedicine consultation with patient 10/20/2023 8:00 AM EDT Telemedicine [facility] [address] [place] [phone] Siria Crespo, MENTAL HE[employer] ADVANCED PRACTICE NURSE-CASTING MACHINE OPERATOR HELPER [address], [address] [place] [phone] [facility] Start: 04-30-2023 [facility] Start: 04-30-2023 [facility] Start: 04-23-2023 End: 04-23-2023 Patient encounter procedure 04/23/2023 Office Visit Gastroenterology Reuben Boyce MD [address] [phone] Gastroenterology and Hepatology [facility] Start: 04-23-2023 End: 04-23-2023 Patient encounter procedure 04/23/2023 Office Visit Cardiovascular Medicine Anshul Hernandez MD [address] [place] [phone] [facility] Start: 02-19-2023 COVID-19 VACCINE () COVID-19 VACCINE () [facility] Start: 10-23-2022 End: 10-24-2023 ANTI MITOCHONDRIAL ANTIBODY [facility] Comment on above: Expected: 10/23/2022, Expires: Start: 10-23-2022 End: 10-24-2023 ANTI SMOOTH MUSCLE ANTIBODY [facility] Comment on above: Expected: 10/23/2022, Expires: 4 Start: 10-23-2022 End: 10-23-2022 Patient encounter procedure 10/23/2022 Office Visit Gastroenterology Reuben Boyce MD [address] [phone] Gastroenterology and Hepatology [facility] Start: 10-03-2022 Potassium [Moles/volume] in Serum or Plasma POTASSIUM [facility] Start: 09-11-2022 End: 09-11-2022 Patient encounter procedure 09/11/2022 Office Visit Cardiovascular Medicine Anshul Hernandez MD [address] [place] [address] [facility] Start: 09-04-2022 End: 09-04-2022 Patient encounter procedure 09/04/2022 Office Visit Cardiovascular Medicine Anshul Hernandez MD [address] [place] [address] [facility] Start: 08-06-2022 Biopsy liver needle percutaneous NEEDLE BIOPSY OF LIVER [facility] Start: 08-06-2022 Catheterization of vein [facility] Start: 08-06-2022 Oxygen therapy [facility] Start: 08-06-2022 Patient discharge [facility] Start: 08-06-2022 Vital signs measurements [facility] Start: 08-06-2022 Following clinical pathway protocol [facility] Start: 07-08-2022 Colonoscopy w/biopsy single/multiple COLONOSCOPY AND BIOPSY [facility] Start: 07-08-2022 Egd transoral biopsy single/multiple EGD BIOPSY SINGLE/MULTIPLE [facility] Start: 07-08-2022 Patient discharge [facility] Start: 05-22-2022 End: 05-22-2022 Patient encounter procedure 05/22/2022 Office Visit Osmani Suarez MD [address] [place] [address] [facility] Start: 04-04-2022 Hemoglobin A1c measurement [facility] Start: 02-20-2022 End: 02-20-2022 Patient encounter procedure 02/20/2022 Office Visit Cardiovascular Medicine Anshul Hernandez MD [address] [place] [address] [facility] Start: 02-19-2022 Influenza vaccination [facility] Start: 02-06-2022 End: 02-06-2022 Patient encounter procedure 02/06/2022 Office Visit Osmani Suarez MD [address] [place] [address] [facility] Start: 12-26-2021 End: 12-26-2021 Patient encounter procedure 12/26/2021 Office Visit Osmani Suarez MD [address] [place], [place] [phone] [facility] Start: 12-19-2021 End: 12-19-2021 Patient encounter procedure 12/19/2021 Office Visit Cardiovascular Medicine Anshul Hernandez MD [address] [place] [address] [facility] Start: 11-28-2021 End: 11-28-2021 Patient encounter procedure 11/28/2021 Office Visit Sports Medicine Osmani Manzanares MD [address] [place], [place] [phone] [facility] Start: 10-27-2021 End: 10-27-2021 Patient encounter procedure 10/27/2021 Office Visit Sports Medicine Burt Andrea PA-C [address] [address] [facility] Start: 10-15-2021 End: 10-15-2021 Admission to same day surgery center 10/15/2021 Surgery Multispecialty Osmani Manzanares MD [address] [place] [address] ARTHROSCOPY SHOULDER W/ ROTATOR CUFF REPAIR [facility] Comment on above: ARTHROSCOPY SHOULDER W/ ROTATOR CUFF REP AIR Start: 10-15-2021 End: 10-15-2021 Arthroscopy shoulder rotator cuff repair [facility] Start: 10-15-2021 End: 10-15-2021 Arthroscopy shoulder w/coracoacrm ligmnt release [facility] Start: 10-15-2021 Subsequent hospital visit by physician 10/15/2021 Hospital Encounter Multispecialty Osmani Manzanares MD [address] [place], [place] [phone] Rotator cuff tear [facility] Comment on above: Rotator cuff tear Start: 10-15-2021 End: 10-15-2021 Tenodesis long tendon biceps [facility] Start: 07-24-2021 COVID-19 VACCINE (4 - Booster for Moderna series) COVID-19 VACCINE (4 - Booster for Moderna series) [facility] Start: 06-21-2021 DEPRESSION ASSESSMENT DEPRESSION ASSESSMENT [facility] Start: 06-19-2021 COVID-19 VACCINE (2 - Pfizer 3-dose series) COVID-19 VACCINE (2 - Pfizer 3-dose series) [facility] Start: 06-19-2021 COVID-19 VACCINE (2 - Pfizer series) COVID-19 VACCINE (2 - Pfizer series) [facility] Start: 04-07-2021 Tetanus vaccination TETANUS [facility] Start: 04-07-2021 Urine microalbumin profile [facility] Start: 02-19-2021 Influenza vaccination [facility] Start: 12-06-2020 Adult depression screening assessment DEPRESSION SCREENING [facility] Start: 09-22-2020 COLOGUARD (FIT-DNA) COLOGUARD (FIT-DNA) [facility] Start: 09-22-2020 Colonoscopy [facility] Start: 09-22-2020 COLORECTAL CANCER SCREENING COLORECTAL CANCER SCREENING [facility] Start: 09-22-[address] COLONOGRAPHY [facility] Start: 09-22-2020 FECAL OCCULT BLOOD FECAL OCCULT BLOOD [facility] Start: 09-22-2020 Screening for malignant neoplasm of colon [facility] Start: 09-22-2020 SIGMOIDOSCOPY SIGMOIDOSCOPY [facility] Start: 03-29-2020 Potassium [Moles/volume] in Serum or Plasma POTASSIUM [facility] Start: 2015 Fasting lipid profile LIPID SCREENING [facility] Start: 07-13-2015 Pneumococcal vaccination Pneumococcal Vaccine (2 of 2 - PCV) [facility] Start: 07-13-2015 PNEUMOCOCCAL VACCINE SERIES (2 - PCV) PNEUMOCOCCAL VACCINE SERIES (2 - PCV) [facility] Start: 07-13-2015 PNEUMOCOCCAL VACCINE SERIES (2 of 2 - PCV) PNEUMOCOCCAL VACCINE SERIES (2 of 2 - PCV) [facility] Start: 04-13-2012 Hepatitis B screening URINE ALBUMIN:CREATININE RATIO [facility] Start: 10-13-2011 Hemoglobin A1c/Hemoglobin.total in Blood HBA1C [facility] Start: 08-13-2011 Hepatitis B surface antibody level LDL CHOLESTEROL [facility] Start: 09-22-1994 Third diphtheria, tetanus and acellular pertussis (DTaP) vaccination TDAP (ADULT) [facility] Start: 09-22-1993 ANNUAL PCP TEAM CHRONIC DISEASE VISIT ANNUAL PCP TEAM CHRONIC DISEASE VISIT [facility] Start: 09-22-1993 Anxiety Screening Anxiety Screening [facility] Start: 09-22-1993 Depression Screening Depression Screening [facility] Start: 09-22-1993 HIV SCREENING HIV SCREENING [facility] Start: 09-22-1993 HIV screening HIV Screening [facility] Start: 09-22-1993 Tetanus vaccination TETANUS [facility] Start: 1991 ONE PNEUMOVAX PRIOR TO AGE 65 ONE PNEUMOVAX PRIOR TO AGE 65 [facility] Start: 09-22-1990 HIV screening HIV SCREENING DISCUSSION [facility] Start: 09-22-1985 3 comp foot exam completed DIABETIC FOOT EXAM [facility] Start: 09-22-1985 Diabetic foot examination Diabetic Foot Exam [facility] Start: 09-22-1985 Glaucoma screening Dilated Retinal Exam [facility] Start: 09-22-1985 Hepatitis C antibody, confirmatory test DILATED RETINAL EXAM [facility] Start: 09-22-1981 PNEUMOCOCCAL (1 - PCV) PNEUMOCOCCAL (1 - PCV) [facility] Start: 09-22-1981 PNEUMOCOCCAL VACCINE SERIES (1 - PCV) PNEUMOCOCCAL VACCINE SERIES (1 - PCV) [facility] Start: 09-22-1981 PNEUMOCOCCAL VACCINE SERIES (1 of 2 - PPSV23) PNEUMOCOCCAL VACCINE SERIES (1 of 2 - PPSV23) [facility] Start: 09-22-1980 COVID-19 VACCINE (1) COVID-19 VACCINE (1) [facility] Start: 1975 Diabetic foot examination DIABETIC FOOT EXAM [facility] Start: 1975 Diabetic retinal eye exam EYE EXAM [facility] Start: 1975 Glaucoma screening EYE EXAM [facility] Start: 1975 Hepatitis C antibody, confirmatory test [facility] Start: 1975 Hepatitis C screening HEPATITIS C VIRUS SCREENING [facility] Start: 1975 Lipid panel LIPIDS [facility] Start: 1975 LIPIDS LIPIDS [facility] Start: 1975 Microalbumin measurement, urine, quantitative URINE MICROALBUMIN TEST [facility] Start: 1975 Urine screening for protein URINE MICROALBUMIN TEST [facility] End: 10-24-2023 AFP TUMOR MARKER AFP TUMOR MARKER Lab Routine 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 every 3 months for 4 Occurrences starting 10/23/2022 until 10/24/2023, 1 completed [facility] Comment on above: every 3 months for 4 Occurrences startin g 10/23/2022 until 10/24/2023, 1 completed Arthroscopy shoulder rotator cuff repair ARTHROSCOPY SHOULDER W/ ROTATOR CUFF REPAIR Rotator cuff tear [facility] Arthroscopy shoulder w/coracoacrm ligmnt release ARTHROSCOPY SHOULDER W/ SUBACROMIAL DECOMPRESSION/ACROMIOPL ASTY ADD-ON PX Rotator cuff tear [facility] C reactive protein [Mass/volume] in Serum or Plasma [facility] Work Phone: C reactive protein [Mass/volume] in Serum or Plasma [facility] CBC W Auto Different ial panel - Blood [facility] Work Phone: CBC W Auto Different ial panel - Blood [facility] Celiac disease screen [facility] Work Phone: Celiac disease screen [facility] End: 10-24-2023 CHEM 6 (LYTES, BUN CREA) CHEM 6 (LYTES, BUN CREA) Lab Routine 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 every 3 months for 4 Occurrences starting 10/23/2022 until 10/24/2023, 1 completed [facility] Comment on above: every 3 months for 4 Occurrences startin g 10/23/2022 until 10/24/2023, 1 completed Clostridioides diffi cile DNA [Presence] in Unspecified specimen by YAIR with probe detection [facility] Work Phone: Clostridioides diffi cile DNA [Presence] in Unspecified specimen by YAIR with probe detection [facility] Colonoscopy [facility] Work Phone: Colonoscopy [facility] End: 10-24-2023 Complete blood count with white cell differential, automated CBC, EDIF, PLATELET Lab Routine 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 every 3 months for 4 Occurrences starting 10/23/2022 until 10/24/2023, 1 completed [facility] Comment on above: every 3 months for 4 Occurrences startin g 10/23/2022 until 10/24/2023, 1 completed Elastase, pancreatic (el-1), fecal; quantitative [facility] Work Phone: Elastase, pancreatic (el-1), fecal; quantitative [facility] Erythrocyte sedimentation rate [facility] Work Phone: Erythrocyte sedimentation rate [facility] Fat [Presence] in Stool [facility] Work Phone: Fat [Presence] in Stool [facility] Gastrointestinal pathogens panel - Stool by YAIR with probe detection [facility] Work Phone: Gastrointestinal pathogens panel - Stool by YAIR with probe detection [facility] End: 10-24-2023 Hepatic function 2000 panel - Serum or Plasma HEPATIC FUNCTION PANEL Lab Routine 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 every 3 months for 4 Occurrences starting 10/23/2022 until 10/24/2023, 1 completed [facility] Comment on above: every 3 months for 4 Occurrences startin g 10/23/2022 until 10/24/2023, 1 completed Immunoglobulin measurement [facility] Work Phone: Immunoglobulin measurement [facility] Lactate dehydrogenas e measurement [facility] Work Phone: Lactate dehydrogenas e measurement [facility] Lactoferrin [Presenc e] in Stool by Immunoassay [facility] Work Phone: Lactoferrin [Presenc e] in Stool by Immunoassay [facility] NVTA INVITAE FAMILY VARIANT TESTING PANEL NVTA INVITAE FAMILY VARIANT TESTING PANEL Lab Routine Family history of Marfan syndrome Ordered: 12/07/2024 [facility] Work Phone: Comment on above: Ordered: 12/07/2024 Ova and parasites identified in Unspecified specimen by Light microscopy [facility] Work Phone: Ova and parasites identified in Unspecified specimen by Light microscopy [facility] Patient Education [facility] Work Phone: Patient referral [facility] Work Phone: Procedure [facility] Work Phone: Procedure [facility] Protein measurement [facility] Work Phone: Protein measurement [facility] End: 10-24-2023 PT,INR,PTT PT,INR,PTT Lab Routine 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 every 3 months for 4 Occurrences starting 10/23/2022 until 10/24/2023, 1 completed [facility] Comment on above: every 3 months for 4 Occurrences startin g 10/23/2022 until 10/24/2023, 1 completed Serum immunofixation [facility] Work Phone: Serum immunofixation [facility] Tenodesis long tendo n biceps TENODESIS BICEPS LONG TENDON Rotator cuff tear [facility] Immunizations Immunization Date Immunization Notes Care Provider [place] [facility] 04-22-2023 influenza virus vaccine, unspecified formulation Anshul Hernandez MD Work Phone: [facility] 05-28-2022 influenza, injectabl e, quadrivalent, preservative free [facility] 05-28-2022 influenza, seasonal, injectable Dr. Jeniffer White Work Phone: [facility] 03-31-2016 Influenza virus vaccine [facility] 03-31-2016 influenza virus vaccine, unspecified formulation Osmani Manzanares MD Work Phone: [facility] 04-07-2011 influenza virus vaccine, unspecified formulation Al Winter DO Work Phone: [facility] 04-07-2011 tetanus toxoid, redu raza diphtheria toxoid, and acellular pertussis vaccine, adsorbed Al Winter DO Work Phone: [facility] 05-18-2006 tetanus and diphther ia toxoids, adsorbed, preservative free, for adult use (2 Lf of tetanus toxoid and 2 Lf of diphtheria toxoid) Al Winter DO Work Phone: [facility] Work Phone: Payers Date Payer Category Payer Unknown [id number] 2024 [facility] BLUE CARD PPO OOS [id number] 2024 Self-pay [id number] 2023 [facility] Member Subscriber Plan / Payer (Effective 2023-Present) Name: KATRINA MELVIN Relation to Subscriber: Self Name: Katrina Melvin Payer ID: [id number] (NAIC) Group ID: Not on file Type: Not on file Address: [address] [place] [id number] 2023 Unknown [id number] 2022 Private Health Insurance KAYLEIGH KNUTSON [id number] 2022-Present [address] [place] [address] [id number] 2019 Unknown [id number] 2018 Unknown [id number] 2016 Unknown [id number] 1975 Unknown [id number]. 594 1975 Unknown [id number]. 594 1975 Unknown [id number]. 594 1975 Unknown [id number]. 594 Unknown [id number] Unknown [facility] [id number] Unknown [id number] 462 Unknown [id number]. 462 Unknown [id number]. 462 Unknown [id number]. 462 Unknown [id number]. 462 Unknown [id number]. 462 Unknown [id number]. 462 Unknown [id number]. 462 Unknown [id number] 462 Social History Date Type Detail Facility Start: 06-30-2019 End: 09-11-2022 Tobacco smoking status NHIS Ex-smoker [facility] Start: 09-19-1995 End: 11-19-2001 History of tobacco use Current smoker [facility] Start: 06-30-2019 End: 04-21-2024 Cigarettes smoked current (pack per day) - Reported 1 [facility] Start: 06-30-2019 End: 09-11-2022 Tobacco use and exposure Former smokeless tobacco user [facility] End: 05-27-2008 History of tobacco use User of smokeless tobacco [facility] Start: 09-12-2021 End: 09-19-2021 Alcohol intake Current drinker of alcohol (finding) [facility] Start: 03-29-2019 History SDOH Alcohol Comment socially [facility] Start: 1975 Sex Assigned At Not on file [facility] Start: 09-02-2021 End: 09-19-2021 Exposure to SARS-CoV-2 (event) Not sure [facility] Start: 09-19-1995 End: 11-19-2001 History of tobacco use Cigarette Smoker [facility] Work Phone: End: 05-27-2008 History of tobacco use Chews Tobacco [facility] Work Phone: Start: 08-01-2021 End: 04-30-2023 Tobacco smoking status ORIS Unknown if ever smoked [facility] Start: 1975 Sex Assigned At Male W [facility] Start: 09-11-2022 End: 04-21-2024 Alcohol intake Ex-drinker (finding) [facility] Start: 04-23-2023 End: 04-21-2024 Tobacco use panel [facility] Start: 03-28-2018 Gender identity Identifies as male gender (finding) [facility] Start: 03-04-2018 Non-smoker [facility] Start: 05-22-2012 Adult Depression Screening Assessment 2 [facility] Start: 03-23-2018 Sex Male (finding) [facility] Medical Equipment Procedure Code Equipment Code Equipment Origin al Text Equipment Identifier Dates Suture Swivelock C 19.1mm Closed Eyelet Twist In Knotless 2 - [id number] Start: 10-15-2021 [place] Fibertak Rc Sp Triple 2.6 [id number] - [id number] Start: 10-15-2021 Goals Date Patient Goal Desired Activity /State Mental Status Date Assessment Result Facility 08-06-2022 Cognitive function Voice/Name [facility] Work Phone: 07-08-2022 Cognitive function Voice/Name [facility] Work Phone: Clinical Notes 09-12-2021 to 03-23-2025 Telephone Encounter - Fawad Hilton RN - 03/23/2025 4:25 PM EDTTelephone Encounter - Fawad Hilton RN - 03/23/2025 4:25 PM EDTTelephone Encounter - Marnie Zapata RN - 02/28/2025 10:17 AM EDT Note Date & Type Note Facility 03-23-2025 Telephone encounter Note Faxed office note from filippo cornelius CNP with clearance to [facility] at fax [phone] with confirmation [facility] 03-23-2025 Miscellaneous Notes Faxed office note from filippo cornelius CNP with clearance to [facility] at fax [phone] with confirmation Images from the original note were not included. Pt is scheduled for left Knee surgery on 04/05/25. Paperwork had been faxed requesting clearance. Per Dr. Hernandez : Pt will need an Echo and scheduled with HF for clearance since he has not seen pt since 04/2024. Paperwork in HFNP folder, Echo order pended for Dr. Hernandez to sign, message routed to Maggie Cardozo To schedule documented in this encounter [facility] 03-23-2025 History of Presen t illness Narrative It is my pleasure to see Katrina Melvin , a 49 y.o. male , at [facility] for follow-up. Notable past medical history includes: The patient's medical history is otherwise notable for Louis's Esophagus, Type II DM, Dilated cardiomyopathy with HFrEF (EF: 45% EF), Bilateral PE (on Lovenox) , Insomnia (on Amitrypline), and Hyperthyroidism (on Methimazole). HPI: Has been feeling very well overall from a CV standpoint. Has upcoming knee surg and need clearance. Dyspnea at rest- No Dyspnea with exertion- Yes with more strenuous exertion Orthopnea- No Pillows: flat + CPAP PND- No Edema- No Angina/CP - No Palpitations- No Lightheadedness/Dizziness- No Syncope- No Appetite- good Low Na+ diet: No added to foods Daily Weights - Stable at home Exercise- Walking Taking meds as directed- Yes ED/Admission since last visit- No Other symptoms: No ROS: Review of Systems Constitutional: Negative. HENT: Negative. Respiratory: Negative. Cardiovascular: Negative. Gastrointestinal: Negative. Genitourinary: Negative. Musculoskeletal: Negative. Objective: Past medical, surgical, and social history reviewed as documented in EHR reports that he quit smoking about 23 years ago. His smoking use included cigarettes. He started smoking about 28 years ago. He has a 5 pack-year smoking history. He quit smokeless tobacco use about 16 years ago. He reports that he does not currently use alcohol. He reports that he does not currently use drugs after having used the following drugs: Marijuana. Current Medications[1] Physical Exam BP 97/64 (BP Location: Left arm, BP Position: Standing) Pulse 76 Resp 18 Ht 1.93 m (6' 4") Wt 130.1 kg (286 lb 12.8 oz) SpO2 99% BMI 34.91 kg/m Smoking Status Former , Wt Readings from Last 3 Encounters: 03/23/25 130.1 kg (286 lb 12.8 oz) 03/23/25 121 kg (266 lb 12.1 oz) 04/21/24 121 kg (266 lb 12.1 oz) , Body mass index is 34.91 kg/m . Physical Exam Constitutional: Appearance: Normal appearance. Neck: Vascular: No hepatojugular reflux or JVD. Cardiovascular: Rate and Rhythm: Normal rate and regular rhythm. Pulses: Normal pulses. Heart sounds: Normal heart sounds. Pulmonary: Effort: Pulmonary effort is normal. Breath sounds: Normal breath sounds. Abdominal: Palpations: Abdomen is soft. Musculoskeletal: Cervical back: Normal range of motion. Right lower leg: No edema. Left lower leg: No edema. Skin: General: Skin is warm and dry. Neurological: Mental Status: He is alert and oriented to person, place, and time. Psychiatric: Mood and Affect: Mood normal. Behavior: Behavior normal. Thought Content: Thought content normal. Judgment: Judgment normal. Labs/CV Testing: Lab Results Component Value Date CREATSERUM 0.63 (L) 10/23/2022 Lab Results Component Value Date BUN 16 10/23/2022 Lab Results Component Value Date GFR >90 10/23/2022 Lab Results Component Value Date POTASSIUM 4.1 10/23/2022 Lab Results Component Value Date SODIUM 142 10/23/2022 Lab Results Component Value Date BNP 34.8 01/17/2019 No results found for: "TSH" Lab Results Component Value Date INR 1.0 10/23/2022 ECHOCARDIOGRAM 04/21/2024 (Final) Interpretation Summary Sub-optimal image quality. Left Ventricle: Chamber size is normal. Normal wall thickness. Moderate global hypokinesis. The ejection fraction is 40%. Ejection fraction by modified Noguera's rule is moderately reduced. Diastolic function is consistent with impaired relaxation (grade I). Right ventricle not well visualized. Chamber size is normal. Systolic function is normal. Left Atrium: Chamber size is mildly enlarged. No significant valve disease. Estimated right ventricular systolic pressure is 21 mmHg. Estimated right atrial pressure is 3.00 mmHg. HF Medical & Device Therapy ACEI / ARB / ARNI: Entresto 97/103 mg BID Beta Harman: Coreg 25 mg BID AA: Spironolactone 25 mg daily SGLT2-I: Jardiance 10 mg daily H-ISDN: none Diuretic: Lasix 40 mg TID Device: none Impression/Plan: 1. DCM, HFrEF, last EF 40% per echo, NYHA I, ACC stage C, appears euvolemic - labs none - testing: Echo today, pending results - HF GDMT at present includes: see above - current diuretic regimen includes Furosemide 40 mg TID - medication adjustments today: None - HF education including diet and exercise discussed - follow up with MD in 6 mo - discussed S&S to notify us sooner 2. T2DM - Managed by PCP - Currently on SGLT2, insulin and GLP1 3. Cardiac risk stratification/Pre-operative cardiac evaluation for surgery - This stratification is informed by lee factors including the presence of hypertension and hyperlipidemia - The patient has adequate functional capacity and is able to complete > 8 METS without limitation - According to ACC/AHA guidelines, the patient is at minimum, Class I , 5% 30-day risk of , [place], or cardiac arrest (elevated risk surgery (Intraperitoneal; intrathoracic; suprainguinal vascular), History of ischemic heart disease, and History of congestive heart failure - The patient is optimized medically and should remain on beta harman throughout the surgical period if possible. He will follow up in the clinic in 6 months and is to notify the office for any cardiovascular concerns prior to then. A written summary of today's visit, orders, and medication changes were given to the patient at the completion of this visit. The patient was in agreement with today's plan. Lety Cornelius APRN, CASTING MACHINE OPERATOR HELPER [facility] [1] Current Outpatient Medications Medication Sig Dispense Refill carveDILOL 25 MG tablet TAKE 2 TABLETS BY MOUTH TWICE A DAY WITH MEALS 360 tablet 3 Empagliflozin 10 MG tablet Take 1 tablet by mouth daily. Enoxaparin Sodium (LOVENOX SC) Inject 135 mg under the skin every 12 hours. Entresto 97-103 MG tablet TAKE 1 TABLET BY MOUTH TWICE A DAY 180 tablet 1 furOSEmide 40 MG tablet TAKE 1 TABLET BY MOUTH THREE TIMES A DAY NEEDED 270 tablet 3 Glucosamine HCl (GLUCOSAMINE PO) Take by mouth. Insulin glargine 100 UNIT/ML vial Inject 40 Units under the skin daily every morning. METHIMAZOLE PO Take 5 mg by mouth daily. PANTOPRAZOLE SODIUM PO Take by mouth. 40mg BID Potassium Chloride ER 20 MEQ Tab CR tablet Take 1 tablet by mouth 2 times daily. Spironolactone 25 MG tablet TAKE 1 TABLET BY MOUTH EVERY DAY 90 tablet 3 Tirzepatide (Mounjaro) 10 MG/0.5ML Solution Auto-injector Inject 0.5 mL under the skin every 7 days. Vitamin D3 2000 units Cap Take 5,000 Units by mouth daily. Ozempic, 2 MG/DOSE, 8 MG/3ML Solution Pen-injector (Patient not taking: Reported on 03/23/2025) No current facility-administered medications for this visit. Patient Education Patient education regarding the following topic(s) was provided on 03/23/2025: plan of care. Echo done today- please my chart message us your fax number so we can send your results Follow up with Dr Hernandez in 6 months Good luck with your knee surgery! Those in attendance for the education included: patient and spouse. Barriers in providing the education included: none. The following methods were used in providing the education: explanation and handout. [facility] handouts given included: After visit summary. The response of those in attendance was: applies knowledge and states/identifies education topic. The following Clinical Intervention(s) occurred during today s visit: Orthostatic or Coarctation vital signs completed and Extensive teaching provided to patient and or support team regarding plan of care documented in this encounter [facility] 03-23-2025 Instructions Siria Gerardo RN - 03/23/2025 9:30 AM EDT The following instructions were given today: Echo done today- please my chart message us your fax number so we can send your results Follow up with Dr Hernandez in 6 months Good luck with your knee surgery! Your after visit summary (AVS) is viewable in [facility] My Chart. Call RN if you have cardiac questions/concerns M-F 8 to 4:30 ; office # [phone], option 6, then option 2. Reducing falls is important to all health care providers. Each time you come to clinic you are asked if you have fallen since your last visit. Contact our office should you have significant dizziness or lightheadedness as some heart medications may have this adverse effect. We will review your medication list/symptoms and make any needed adjustments. We want to minimize the risk of falling as it relates to dizziness/lightheadedness. Guidelines for home management: 1. Continue to monitor weight first thing each morning. 2. Report to the CHF CLINIC ([phone]) any significant weight change. Remember that weight change of 2-3 lbs. in 1 day or 5 lbs in a week is "significant" and likely represents changes in "fluid" status. 3. If you are taking a [...] edema or abdominal bloating). Remember that even "minor" changes in symptoms may be important. Also report any changes in medications including "over the counter" medications. 6. DO NOT take NSAID's for [...] to have labs/tests run outside of the [facility] and you do not hear from us 1-2 days after they are performed, you must call us to ensure we received the results. Office fax # [phone]. No news does not necessarily mean that your tests are normal, it could mean we did not get the results. For questions/updates: please provide your name with spelling, date of and question or update All calls are prioritized and responses researched, if possible, prior to calls being returned. Call Scheduling for any appointment/procedure verification or changes [phone], option 7 or [facility] Heart Schedulers at [phone], option 1. documented in this encounter [facility] 02-28-2025 Telephone encounter Note Images from the original note were not included. [facility] 02-28-2025 Telephone encounter Note Pt is scheduled for left Knee surgery on 04/05/25. Paperwork had been faxed requesting clearance. Per Dr. Hernandez : Pt will need an Echo and scheduled with [facility] for clearance since he has not seen pt since 04/2024. Paperwork in HFNP folder, Echo order pended for Dr. Hernandez to sign, message routed to Maggie Dewitt schedule [facility] 01-09-2025 Telephone encounter Note Left voicemail requesting callback to discuss genetic testing results as below: Addendum: spoke to patient 4:30 PM 01/09/25. 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 He was found to carry the same FBN1 variant identified in his other affected relatives. I suspect that this explains his cardiomyopathy given that his previous [facility] genetic testing was negative and thus far the FBN1 variant has also been identified in his relatives with cardiomyopathy. NICM is a known manifestation of Marfan syndrome and can be independent of valve function. Based on these results, he should continue follow-up with his software support technician. Needs at least annual cardiac imaging given risk of aortic dilation and valve disease. He should follow-up at least annually with his stick welder given significantly increased risk of ectopia lentis as well as early cataracts. 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 Recommend cascade genetic testing for his son. Since this FBN1 variant is segregating with disease in his family, and his DCM genetic testing was otherwise negative, I believe his son can be released from any cardiac screening if his genetic testing is normal. His son has a 50% chance to have Marfan syndrome. We also discussed the possibility of genetic discrimination for his son if his genetic testing is positive, specifically with respect to life insurance, long-term care, or disability insurance. Discussed he should get annual cardiac screening and dilated eye exam if he does not get genetic testing. He did state that his son scuba dives and I explained there is a risk of spontaneous pneumothorax if he has Marfan syndrome and this is generally not recommended. He will discuss with his son and family and contact me if he's interested in proceeding with genetic testing for his son. He did request I send an email with my referral/office info for his son if needed, and also a reminder about where to access his genetic testing results. Happy to assist with any care coordination needed in the future. No additional questions. Results to be forwarded to his software support technician and referring PCP. ---- Gus Cadena MS, [facility] Licensed Genetic Counselor Email: [email or web address] [facility] Work Phone: 01-09-2025 Miscellaneous Notes Left voicemail requesting callback to discuss genetic testing results as below: Addendum: spoke to patient 4:30 PM 01/09/25. Test: FBN1 sequencing, [facility] Results: Positive One pathogenic variant was identified in the FBN1 gene: - FBN1: c.6322C>T ([id number]), heterozygous, pathogenic Summary: This is consistent with a diagnosis of Marfan syndrome. He was found to carry the same FBN1 variant identified in his other affected relatives. I suspect that this explains his cardiomyopathy given that his previous DCM genetic testing was negative and thus far the FBN1 variant has also been identified in his relatives with cardiomyopathy. NICM is a known manifestation of Marfan syndrome and can be independent of valve function. Based on these results, he should continue follow-up with his software support technician. Needs at least annual cardiac imaging given risk of aortic dilation and valve disease. He should follow-up at least annually with his stick welder given significantly increased risk of ectopia lentis as well as early cataracts. 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 Recommend cascade genetic testing for his son. Since this FBN1 variant is segregating with disease in his family, and his DCM genetic testing was otherwise negative, I believe his son can be released from any cardiac screening if his genetic testing is normal. His son has a 50% chance to have Marfan syndrome. We also discussed the possibility of genetic discrimination for his son if his genetic testing is positive, specifically with respect to life insurance, long-term care, or disability insurance. Discussed he should get annual cardiac screening and dilated eye exam if he does not get genetic testing. He did state that his son scuba dives and I explained there is a risk of spontaneous pneumothorax if he has Marfan syndrome and this is generally not recommended. He will discuss with his son and family and contact me if he's interested in proceeding with genetic testing for his son. He did request I send an email with my referral/office info for his son if needed, and also a reminder about where to access his genetic testing results. Happy to assist with any care coordination needed in the future. No additional questions. Results to be forwarded to his software support technician and referring PCP. ---- Gus Cadena MS, [facility] Licensed Genetic Counselor Email: [email or web address] documented in this encounter [facility] 12-07-2024 History of Presen t illness Narrative GENETIC COUNSELING CONSULTATION Katrina Melvin is a 49 year old male with a history of dilated cardiomyopathy referred for genetic counseling by Dr.Mark White. Appointment occurred via telephone communication. I have communicated my name and active licensure. The patient's identity and physical location were verified at the time of this visit. Either the patient or their legal sales representative printing paper has been informed of the risks and benefits of -- and alternatives to -- treatment through a remote evaluation and consents to proceed with the evaluation remotely. HISTORY OF PRESENT ILLNESS: Katrina Melvin is a 49 year old male with a history of nonischemic dilated cardiomyopathy (2016), DVT following left knee injury (2016), bilateral PE (2016), WILSON. Followed by Dr. Anshul Hernandez with [facility] currently on GDMT with improved EF (32% > 45%). Normal cardiac catheterization. Cardiac MRI 2017 with midwall fibrosis c/w nonischemic etiology. Previously enrolled in the [facility] precision medicine study with reportedly negative genetic testing although no report available today. Scheduled for follow up 03/2025. Has a history of myopia, underwent LASIK procedure twice with no issues. Last seen by ophthalmology about 2 years ago but generally annual follow up. 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 Referred today to cardiovascular genetics due to a family history of genotype positive Marfan syndrome in his mother, sister, niece, and maternal aunt. Index case is his mother who underwent genetic testing due to her history of "slipped lenses" confirmed to be a bilateral lens subluxation. She was confirmed to be heterozygous for a pathogenic FBN1 variant c.6322C>T ([id number]). He is here today for predictive genetic testing and mainly concerned for his 15 year old son. Cardiovascular Testing: Echcoardiogram (04/21/2024): Sub-optimal image quality. Left Ventricle: Chamber size is normal. Normal wall thickness. Moderate global hypokinesis. The ejection fraction is 40%. Ejection fraction by modified Noguera's rule is moderately reduced. Diastolic function is consistent with impaired relaxation (grade I). Right ventricle not well visualized. Chamber size is normal. Systolic function is normal. Left Atrium: Chamber size is mildly enlarged. No significant valve disease. Estimated right ventricular systolic pressure is 21 mmHg. Estimated right atrial pressure is 3.00 mmHg. Cardiac MRI (03/2018) 1. Midwall late gadolinium enhancement involving the [...] 1.3 m/sec based on phase contrast imaging. MEDICAL HISTORY: PAST MEDICAL HISTORY Diagnosis Date Cardiomyopathy (HCC) CHF (congestive heart failure) (HCC) Diabetes (HCC) DVT (deep venous thrombosis) ([facility]) PE Esophageal reflux 09/18/2005 Intervertebral cervical disc disorder with myelopathy, cervical region 2000 Left arm weakness resolved with PT SURGICAL HISTORY: PAST SURGICAL HISTORY Procedure Laterality Date LASIK Bilateral 06/2016 LASIK Bilateral 12/2005 OPTX ANKLE DISLOCATION W/REPAIR/INT/XTRNL FIXJ 1992 ORIF Ankle, left FAMILY HISTORY: A detailed, 4-generation family history was obtained, details are available on request. Significant diagnoses are listed below: FAMILY HISTORY Problem Relation Age of Onset Diabetes Mother Hypertension Mother Hypertension Father Lipids Father Diabetes Father Sister (Shanelle Gusman) - 41y, Marfan syndrome, optic nerve pit, retinal detachment, macular hole, ?mitral valve prolapse, +FBN1 variant Mother (Raegan Melvin) - 74y, Marfan syndrome, bilateral ectopia lentis, +FBN1 variant Maternal aunt - bilateral ectopia lentis Maternal aunt - valve replacement, s/p dual chamber ICD, early cataracts ?zonulopathy Maternal aunt - d. AML, ectopia lentis Maternal grandmother - d. 70s, complications of open heart surgery, ectopia lentis The remainder of the reported family history is negative for hereditary cardiovascular disease, sudden , and consanguinity. IMPRESSION: Katrina Melvin is a 49 year old male with: - Idiopathic dilated cardiomyopathy - Family history of Marfan syndrome (FBN1 [id number], ectopia lentis, valve prolapse, nonischemic cardiomyopathy) Katrina has a 50% chance to have Marfan syndrome based on his family history. He does have dilated cardiomyopathy which can be seen with Marfan syndrome but is non-specific. He has a normal aorta on last echo and no valve prolapse. He did not report any characteristic eye findings of Marfan syndrome besides myopia. Genetic testing is necessary to confirm a diagnosis which can guide management. From the perspective of follow-up if his genetic testing is positive he is already getting annual cardiac imaging as well as seeing an stick welder. We discussed the approach to management of many of the Marfan-related eye and heart (primarily aortic and valve) problems can be unique and the information could eventually affect his management. If his genetic testing is positive his son will have a 50% chance to have Marfan syndrome and should be tested. He was very interested in this if needed. If Katrina's genetic testing is normal his son will not need genetic testing based on his family history. He did previously have genetic testing through the [facility] precision medicine study that was reportedly negative. I didn't have a report today but from my knowledge of the protocol they are unlikely to have reported any pathogenic FBN1 variants. I do not remember the policy on reporting of secondary findings. Therefore we did find it reasonable to test even with his prior history of genetic testing. We did discuss its possible he has Marfan cardiomyopathy which could be important in considering residual risk to his son. If he does not have Marfan syndrome clinical screening of his son for cardiomyopathy is reasonable if not recommended. Genetic testing (FBN1 sequencing) was recommended and he agreed to proceed. PLAN: - FBN1 sequencing through [employer] family testing program. Buccal kit to be mailed. Results about 2 weeks after and I'll call to discuss. GENETIC COUNSELING: GENETIC COUNSELING: Marfan syndrome is a genetic condition that affects the body's connective tissue. Connective tissue is within the eyes, arteries, skin, bones, and joints. Individuals with Marfan syndrome may have unique physical features that are the result of abnormal connective tissue. This may include tall stature, an abnormally shaped breast bone (or pectus), scoliosis, and long arms. Most individuals with Marfan syndrome will have these physical features, but these can also occur in the general population unrelated to any underlying genetic condition. These physical features may even run in the family, but do not necessarily indicate someone has Marfan syndrome. A scoring system called a "systemic score" is often used to measure how many physical features of Marfan syndrome a person has. Individuals with Marfan syndrome are at increased risk for a heart issue called an aortic aneurysm. If an aortic aneurysm grows very large, an individual can be at-risk for a life-threatening emergency called an aortic dissection. Therefore, individuals with Marfan syndrome have regular monitoring of their aorta throughout life. Medical therapy may be effective in slowing the growth of the aorta. If an aortic aneurysm becomes very large, surgery is effective in preventing an aortic dissection. Other heart issues can also be seen such as mitral valve prolapse and cardiomyopathy. Individuals with Marfan syndrome can also be at increased risk for a rare eye problem called a lens dislocation. The lens of the eye is involved in focusing light into the eye. When the connective tissue surrounding the lens becomes weakened, it can result in the lens moving out of place, which can result in blurry vision. A lens dislocation is also called "ectopia lentis" and has very few causes other than Marfan syndrome. Marfan syndrome can be diagnosed through a combination of clinical or genetic evaluation. Individuals with two or more findings associated with Marfan syndrome (aortic root aneurysm, lens dislocation, systemic score of 7 or more, or a family history of confirmed Marfan syndrome) may receive a clinical diagnosis of Marfan syndrome. Individuals who do not meet clinical criteria of Marfan syndrome may also receive a diagnosis through genetic testing. Nearly all individuals with Marfan syndrome will have a harmful genetic difference in a part of the genetic code called the FBN1 gene. Identification of a harmful genetic differnce (or variant) in the FBN1 gene may help confirm a diagnosis of Marfan syndrome. If a harmful variant is not identified in the FBN1 gene, a diagnosis of Marfan syndrome is much less likely but is not necessarily ruled out. There are other genetic conditions which can resemble Marfan syndrome but have a different underlying genetic cause. In some cases the treatment of these conditions can also be different. Therefore, additional genetic testing for other Marfan-like conditions may be recommended. If you are confirmed to have Marfan syndrome, we would recommend screening of family members. This screening can help prevent an unexpected heart problems in family members. This can be done once through genetic testing if a harmful genetic variant was identified in the FBN1 gene. If a harmful variant could not be identified in a person with Marfan syndrome, we would recommend clinical evaluation of all first-degree relatives, including regular aortic screening with a software support technician. It is important to know that each person and family with Marfan syndrome is unique. Some individuals with Marfan syndrome show very few outward signs of the condition, if any at all. Occasionally, a rare genetic change is found on genetic testing that is not well-studied. These are called variants of uncertain significance. Some of these genetic changes are later found to be harmless. These results are not typically used for medical care or family screening. In rare cases, testing of relatives may be recommended to clarify its significance. Online Resources: www.marfan.org www.johnritterfoundation.org -------- I spent a total of 40 minutes on the date of the service which included preparing to see the patient, completing clinical documentation, obtaining and/or reviewing separately obtained history, performing a medically appropriate examination, counseling and educating the patient/family/caregiver, and ordering medications, tests, or procedures. This plan is being carried out under oversight of Dr. Nicolette Smith, Clinical Animation Artist. This note is available to the patient through [employer] and will be sent to the referring provider through TBS or the [place] Mail as necessary. Gus Cadena MS, [facility] [place], Certified Genetic Counselor [facility] CC: Dr. Nicolette Smith documented in this encounter [facility] 12-07-2024 Note HNO ID: [id number] Author: GUS CADENA LGC Service: ? Author Type: Genetic Counselor Type: Progress Notes Filed: 12/07/2024 09:50 Note Text: GENETIC COUNSELING CONSULTATION Katrina Melvin is a 49 year old male with a history of dilated cardiomyopathy referred for genetic counseling by Dr.Mark White. Appointment occurred via telephone communication. I have communicated my name and active licensure. The patient's identity and physical location were verified at the time of this visit. Either the patient or their legal sales representative printing paper has been informed of the risks and benefits of -- and alternatives to -- treatment through a remote evaluation and consents to proceed with the evaluation remotely. HISTORY OF PRESENT ILLNESS: Katrina Melvin is a 49 year old male with a history of nonischemic dilated cardiomyopathy (2015), DVT following left knee injury (2016), bilateral PE (2016), WIL[place]. Followed by Dr. Anshul Hernandez with [facility] currently on GDMT with improved EF (32% > 45%). Normal cardiac catheterization. Cardiac MRI 2017 with midwall fibrosis c/w nonischemic etiology. Previously enrolled in the [facility] precision medicine study with reportedly negative genetic testing although no report available today. Scheduled for follow up 03/2025. Has a history of myopia, underwent LASIK procedure twice with no issues. Last seen by ophthalmology about 2 years ago but generally annual follow up. 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 Referred today to cardiovascular genetics due to a family history of genotype positive Marfan syndrome in his mother, sister, niece, and maternal aunt. Index case is his mother who underwent genetic testing due to her history of "slipped lenses" confirmed to be a bilateral lens subluxation. She was confirmed to be heterozygous for a pathogenic FBN1 variant [id number] ([id number]). He is here today for predictive genetic testing and mainly concerned for his 15 year old son. Cardiovascular Testing: Echcoardiogram (04/21/2024): Sub-optimal image quality. Left Ventricle: Chamber size is normal. Normal wall thickness. Moderate global hypokinesis. The ejection fraction is 40%. Ejection fraction by modified Noguera's rule is moderately reduced. Diastolic function is consistent with impaired relaxation (grade I). Right ventricle not well visualized. Chamber size is normal. Systolic function is normal. Left Atrium: Chamber size is mildly enlarged. No significant valve disease. Estimated right ventricular systolic pressure is 21 mmHg. Estimated right atrial pressure is 3.00 mmHg. Cardiac MRI (03/2018) 1. Midwall late gadolinium enhancement involving the [...] 1.3 m/sec based on phase contrast imaging. MEDICAL HISTORY: PAST MEDICAL HISTORY Diagnosis Date Cardiomyopathy (HCC) CHF (congestive heart failure) ([facility]) Diabetes (HCC) DVT (deep venous thrombosis) ([facility]) PE Esophageal reflux 09/18/2005 Intervertebral cervical disc disorder with myelopathy, cervical region 2000 Left arm weakness resolved with PT SURGICAL HISTORY: PAST SURGICAL HISTORY Procedure Laterality Date LASIK Bilateral 06/2016 LASIK Bilateral 12/2005 OPTX ANKLE DISLOCATION W/REPAIR/INT/XTRNL FIXJ 1992 ORIF Ankle, left FAMILY HISTORY: A detailed, 4-generation family history was obtained, details are available on request. Significant diagnoses are listed below: FAMILY HISTORY Problem Relation Age of Onset Diabetes Mother Hypertension Mother Hypertension Father Lipids Father Diabetes Father Sister (Shanelle Gusman) - 41y, Marfan syndrome, optic nerve pit, retinal detachment, macular hole, ?mitral valve prolapse, +FBN1 variant Mother (Raegan Melvin) - 74y, Marfan syndrome, bilateral ectopia lentis, +FBN1 variant Maternal aunt - bilateral ectopia lentis Maternal aunt - valve replacement, s/p dual chamber ICD, early cataracts ?zonulopathy Maternal aunt - d. AML, ectopia lentis Maternal grandmother - d. 70s, complications of open heart surgery, ectopia lentis The remainder of the reported family history is negative for hereditary cardiovascular disease, sudden , and consanguinity. IMPRESSION: Katrina Melvin is a 49 year old male with: - Idiopathic dilated cardiomyopathy - Family history of Marfan syndrome (FBN1 [id number], ectopia lentis, valve prolapse, nonischemic cardiomyopathy) Katrina (more content not included)... [facility] 11-18-2024 Discharge summary [facility] 11-18-2024 Discharge summary Note Date/Time November 18, 2024 2:19pm [facility] Medical Records Department [address] [place] [id number] Emergency Department Summary 11/18/24 MR#: [id number] Acct: [id number] Name: KATRINA MELVIN Rep #:[id number] : 1975 49 From: Nicko sebastian DO PCP: Dr. Jeniffer White, DO Status:REG ER Location: ED HPI History of Present Illness Chief Complaint: Lower Extremity Injury Narrative Narrative: Chief complaint and HPI: Right calf tenderness and bruising. History taken by patient, , and medical record. Patient is a 49-year-old male with past medical history of DVT, PE on Lovenox 130 mg twice daily, DM2, HTN who presents for evaluation of right calf pain and ecchymosis. Patient was seen for similar complaint on 11/16. Had a venous duplex ultrasound performed at that time that was negative for DVT however nonvascular hypoechoic structure noted in the rightmedial calf, seroma versus hematoma. Patient states that the bruising has become more significant with pain which is why he presents. Patient denies any significant injury or trauma. He states previously he had bacteremia in that extremity due to a wound/blister on his foot. Currently denies any fever, chills, wounds. Review of systems: See HPI Medications: As listed on the chart Allergies: As listed on the chart PFSH: Per chart Vital signs: As listed on the chart. Reviewed. Physical exam: Gen: A&O x3, NAD Head: Normocephalic, atraumatic Eyes: No sclera icterus, conjunctiva clear ENT: Moist mucous membranes Neck: Trachea midline, full range of motion CV: Regular rate Resp: Nonlabored respiration GI: Abd soft, non-distended, non-tender, no r/r/g Musc: Right lower extremity with minimal swelling in the right calf compared to the left, right calf has healing ecchymosis as it is more yellow in color, calfis tender to palpation but compartments are soft, femoral/DP/PT pulse +2, strength +5/5 bilaterally although has decreased range of motion secondary to the calf pain, achilles intact without tenderness, no erythema/warmth/cellulitis/wounds, good capillary refill, full range of motion of all joints without erythema/warmth/tenderness Neuro: Alert, oriented, grossly intact, sensation intact Psych: Cooperative, appropriate mood and affect [facility] Medical History Barretts esophagus Fatty liver Thyroid disease Arthritis DVT (deep venous thrombosis) Injury of back Injury of head and neck History of GI bleed Former smoker Shortness of breath on exertion Leg cramps History of edema History of echocardiogram History of stress test Cardiology follow-up encounter History of CHF (congestive heart failure) Rotator cuff arthropathy of left shoulder History of TIA (transient ischemic attack) Diabetes mellitus Hemorrhage of anus and rectum Idiopathic cardiomyopathy Thyroid nodule Essential (primary) hypertension 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 Type 2 diabetes mellitus Medial meniscus tear Diastolic dysfunction with heart failure DVT of leg (deep venous thrombosis) Contusion of left knee, initial encounter Other internal derangements of left knee Pain of left knee after injury Other tear of lateral meniscus, current injury, left knee, subsequent encounter Other tear of medial meniscus, current injury, left knee, subsequent encounter Pulmonary embolism (07/2016) Home Medications ?Medication ?Instructions ?Recorded ?Last Taken ?Type enoxaparin 150 mg/mL subcutaneous 135 mg subcut Q12@06 00,1800 12/10/17 11/16/24 History syringe cholecalciferol (vitamin D3) 125 5,000 unit PO DAILY 1 06/24/17 11/18/24 History mcg (5,000 unit) capsule spironolactone 25 mg tablet 25 mg PO DAILY #90 tabs 11/18/24 Rx empagliflozin 10 mg tablet 10 mg PO DAILY 02/19/22 History (Jardiance) sacubitril 97 mg-valsartan 103 mg 1 tab PO BID 3 11/18/24 History tablet (Entresto) furosemide 40 mg tablet (Lasix) 40 mg PO TID 04/30/23 11/18/24 History methimazole 5 mg tablet 5 mg PO DAILY 10/24/2411/18 History potassium chloride 20 mEq 20 meq PO BID 10/24/2411/18 History tablet,extended release semaglutide 2 mg/dose (8 mg/3 mL) 2 mg subcut QWEEK 11/12/24 History subcutaneous pen injector (Ozempic) carvedilol 25 mg tablet 50 mg PO BID 11/18/24 History insulin glargine 100 unit/mL (3 40 unit subcut DAILY 0 11/18/24 11/17/24 History mL) subcutaneous pen (Lantus Solostar U-100 Insulin) pantoprazole 40 mg tablet,delayed 40 mg PO Q12H 11/18/24 History release Allergy/AdvReac Type Severity Reaction Status Date / Time codeine Allergy Other Verified 11/18/24 09:49 metformin Allergy Abd Verified 11/18/24 09:49 cramps/diarrhea perflutren (From Definity) AdvReac Pain in Verified 11/18/24 09:49 joints Family History Father Hypertension Diabetes Mother Hypertension Diabetes Other Cervical cancer Myocardial infarction Skin cancer Surgical History History of cardiac catheterization History of left heart catheterization (03/04/18) torn cartilage behind knee Partially torn MCL Torn PCL Torn meniscus Social History Smoking Status: Former smoker how long ago did patient quit smokin, 2pks/day second hand exposure: Yes alcohol intake: current alcohol intake frequency: a few times a month substance use type: does not use EXAM Physical Exam Const Vital Signs: 11/18/24 09:49 11/18/24 11:49 11/18/24 13:00 Temperature 97.7 F L Temperature Source Oral Pulse Rate 83 80 81 Respiratory Rate 18 16 18 Blood Pressure 107/75 118/72 Blood Pressure Mean 85 87 Pulse Ox 97 98 Oxygen Delivery Method Room Air Room Air MDM MDM MDM Narrative Medical decision making narrative: 49-year-old male with past medical history of DVT, PE on Lovenox 130 mg twice daily, DM2, HTN who presents for evaluation of right calf pain and ecchymosis. Patient was seen for similar complaint on 11/16. Note and venous duplex reviewed. Venous duplex was negative for DVT but showed nonvascular hyperechoicstructure of the right medial calf, concern for seroma versus hematoma. Patientpresents due to continued pain and ecchymosis. Denies any injury or trauma. Differential diagnosis includes but is not limited to hematoma, calf muscle tear/contusion, DVT. Suspect less likely occult fracture. Patient has no signsand symptoms of septic arthritis or bacteremia. Although patient's venous duplex ultrasound was negative for DVT, patient is high risk. Will obtain repeat venous duplex ultrasound with CT of the lower extremity without contrast. I did inform the patient as well as his that there is no concern for bacteremia or septic arthritis however they are concerned given patient's previous history of bacteremia. Therefore basic labs and blood culture obtained. I do not think any further workup for bacteremia or septic arthritis is needed as there is no symptoms or physical exam to suggest these. CBC without leukocytosis or anemia. Coagulation panel unremarkable. BMP unremarkable. Venous duplex ultrasound negative for DVT. A nonvascular structure with mixed echogenicity is noted in the right medial calf, measuring 11 cm x 3 cm. This probably represents a hematoma or seroma. No significant change from prior exam. On reevaluation, patient endorsing increased pain and intermittent paresthesias. He has refused pain medicine. Patient and family concerned of compartment syndrome. Clinically patient has minimal swelling in the calf compared to the other. He has sensation to dull and pinprick evaluation. His compartments are soft. Patient is in agreement to trying pain medicine. CT of the lower extremity shows no acute fracture. Patient has intramuscular hematoma of the medial aspect of the gastrocnemius measuring 6.5 x2.8 x 9.7 cm. On reevaluation, patient states his pain has improved some but isstill present. His paresthesias have resolved. Given CT imaging with patient'ariana, orthopedic surgery, Dr. Last was contacted and patient was discussed. Although compartment syndrome is low on the differential cannot truly rule this out. Dr. Last agrees that compartment syndrome is not likely however cannot rule out without Moon needle. We do not have this available in our facility. If family is concerned, recommended transferring to another facility. Recommendations was discussed with the patient and family. Given that pain hasimproved, patient would like to discharge home with strict return precautions. Will give crutches as needed for ambulation however recommended ambulation as tolerated. Will give narcotics. Follow-up with orthopedics. Strict return precautions were given. Patient stable to discharge home. Impression: 1. Hematoma of the medial aspect of the gastrocnemius muscle 2. History of anticoagulation use Lab Data Labs: Laboratory Results - last 24 hr 11/18/24 11:24 WBC 7.3 RBC 4.72 Hgb 14.6 Hct 42.6 MCV 90.3 MCH 30.9 MCHC 34.3 RDW Std Deviation 45.0 H RDW Coeff of [place] 13.5 Plt Count 244 MPV 9.2 Immature Gran % (Auto) 0.400 Neut % (Auto) 67.1 Lymph % (Auto) 23.2 [place] % (Auto) 7.9 Eos % (Auto) 1.1 Baso % (Auto) 0.3 Absolute Neuts (auto) 4.9 Absolute Lymphs (auto) 1.70 Nucleated RBC % 0 PT 12.9 INR 1.0 APTT 26.3 Sodium 137 Potassium 4.8 Chloride 99 Carbon Dioxide 25.6 Anion Gap 12 BUN 12 Creatinine 0.65 L Estim Creat Clear Calc 204.28 Est GFR (MDRD) Non-Af 116 BUN/Creatinine Ratio 18.8 Glucose 197 H Calcium 9.5 Radiography Diagnostic Testing: Clinical Impression(s) from Imaging Studies Lower Extremity CT 11/18/24 10:46 IMPRESSION: 1. No acute fracture. 2. Intramuscular hematoma of the medial aspect of the gastrocnemius measuring 6.5 x 2.8 x 9.7 cm. Reading Location: [facility] Venous Doppler Study 11/18/24 10:46 Interpretation Summary Deep veins of the right lower extremity are patent and compressible segmentally.There is no evidence of right lower extremity deep vein thrombosis. Valvular competence appears intact within the proximal deep venous system on the right . The right great saphenous vein appears patent and compressible segmentally. A non-vascular structure with mixed echogenicity is noted in the right medial calf, measuring 11.66 cm x 3.0 cm. This probably represents a hematoma or seroma. Clinical correlation is advised. There has been no significant change since a prior study on 11/16/24. Ordering Physician: Nicko Robbins Referring Physician: Jeniffer White Performed By: Francy Kraus RVJorge Discharge Plan Triage Chief Complaint: Lower Extremity Injury ED Provider: Nicko Robbins Dx/Rx/DC Orders Prescriptions: No Action Jardiance 10 mg tablet 10 mg PO DAILY Ozempic 2 mg/dose (8 mg/3 mL) pen injector 2 mg subcut QWEEK potassium chloride 20 mEq tablet extended release 20 meq PO BID enoxaparin 150 MG/ML syringe 135 mg SC Q12@0600,1800 methimazole 5 mg tablet 5 mg PO DAILY cholecalciferol (vitamin D3) 5,000 UNIT capsule 5,000 unit PO DAILY Entresto 97-103 mg tablet 1 tab PO BID furosemide [Lasix] 40 mg tablet 40 mg PO TID Patient Comments: pt. states he has to take 40 mg twice and the other 40 mg is a prn based on his weight carvedilol 25 mg tablet 50 mg PO BID insulin glargine [Lantus Solostar U-100 Insulin] 100 unit/mL (3 mL) insulin pen 40 unit subcut DAILY pantoprazole 40 mg tablet,delayed release (DR/EC) 40 mg PO Q12H spironolactone 25 mg tablet 25 mg PO DAILY Qty: 90 1RF Primary Care Provider: Jeniffer White Referrals: Jeniffer White DO [Primary Care Provider] - Print Language: Trinidadian What to do if you have Problems For any increased pain, shortness of breath, bleeding, nausea or vomiting, chestpain, or any unexpected problems, contact your Primary Care Provider. Call [facility] ([phone]) or report to the closest Emergency Room. Call 911 if necessary. 11/18/24 1419 <Electronically signed by Nicko Robbins DO> Cosigner Signature (if applicable): CC: Dr. Jeniffer White, ~ Signed [facility] Work Phone: [phone] Radiology Diagnostic study note [facility] Imaging Services [address] [place] [address] 200021 Extremity Lower without Contra MR#: [id number] Acct: [id number] Name: KATRINA MELVIN Rep #: [id number] : 1975 M 49 From: Landy Bush MD PCP: Dr. Jenifefr White DO Status: REG ER Study:Extremity Lower without Contra Date of Exam: 11/18/24 Exam# [id number] Ordering Dr: Nicko Whittington DO EXAM: CT Extremity Lower Contra Without Intravenous Contrast CLINICAL INDICATION: PAIN, US CONCERNING FOR HEMATOMA TECHNIQUE: Axial computed tomography images of the extremity lower contra without intravenous contrast. This CT exam was performed using one or more of the following dose reduction techniques: automated exposure control,adjustment of the mA and/or kV according to patient size, and/or use of iterative reconstruction technique. COMPARISON: No relevant prior studies available. FINDINGS: No acute fracture. Intramuscular hematoma of the medial aspect of the gastrocnemius measuring 6.5 x2[address]/Extremity Lower without Contra IMPRESSION: 1. No acute fracture. 2. Intramuscular hematoma of the medial aspect of the gastrocnemius measuring 6.5 x 2.8 x 9.7 cm. Reading Location: [facility] CC: Dr. Nicko Robbins DO; Dr. 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 Jeniffer White DO Status:REG ER Location: ED HPI History of Present Illness Chief Complaint: Lower Extremity Injury Narrative Narrative: Patient is a 49-year-old male with a past medical history of DVT, PE on Lovenox 130 mg twice daily,type 2 diabetes, hypertension who presented to the emerged part with concern of right leg pain and swelling. Patient states that few weeksago he originally had pain and swelling in his right leg he thought he hurt his calf muscle and states that he thought things would get better. He states that recently on Wednesday he went diving and preparation to go on a trip in 2 weeks to do scuba diving in [facility]. He states that on Wednesday when he woke up he had pain and swelling in his right calf leg again. He states that he has been trying [id number] medications as well as ice heat TENS units etc. without any symptomatic relief. He states that he he thought he was getting better however after work today he noted that he had significant pain and swelling therefore he came here for further evaluation management. He states that in the he had an injury in the left leg and he had clot burdenfrom his groin all the way to his foot. He states that this clot took a very long time to breakdownhe states that Xarelto and Eliquis does not work on him he states thaton his Lovenox he will cut himself and he will not bleed as expected for being on without much Lovenox. He is concerned that he has another clot in his leg onthe right side [facility] Medical History Barretts esophagus Fatty liver Thyroid disease Arthritis DVT (deep venous thrombosis) Injury of back Injury of head and neck History of GI bleed Former smoker Shortness of breath on exertion Leg cramps History of edema History of echocardiogram History of stress test Cardiology follow-up encounter History of CHF (congestive heart failure) Rotator cuff arthropathy of left shoulder History of TIA (transient ischemic attack) Diabetes mellitus Hemorrhage of anus and rectum Idiopathic cardiomyopathy Thyroid nodule Essential (primary) hypertension 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 Type 2 diabetes mellitus Medial meniscus tear Diastolic dysfunction with heart failure DVT of leg (deep venous thrombosis) Contusion of left knee, initial encounter Other internal derangements of left knee Pain of left knee after injury Other tear of lateral meniscus, current injury, left knee, subsequent encounter Other tear of medial meniscus, current injury, left knee, subsequent encounter Pulmonary embolism (07/2016) Home Medications ?Medication ?Instructions ?Recorded ?Last Taken ?Type enoxaparin 150 mg/mL subcutaneous 135 mg subcut Q12@06 00,1800 12/10/17 08/03/22 History syringe cholecalciferol (vitamin D3) 125 5,000 unit PO DAILY 1 06/24/17 Unknown History mcg (5,000 unit) capsule multivitamin 1 ea PO DAILY 04/24/18 Unkno wn History spironolactone 25 mg tablet 25 mg PO DAILY #90 tabs Unknown Rx empagliflozin 10 mg tablet 10 mg PO DAILY 02/19/22 Unk stefanon History (Jardiance) carvedilol 12.5 mg tablet 50 mg PO BID 07/06/22 History sacubitril 97 mg-valsartan 103 mg 1 tab PO BID 3 07/08/22 History tablet (Entresto) pantoprazole 40 mg tablet,delayed 40 mg PO QAM #90 tab s 09/18/22 Unknown Rx release furosemide 40 mg tablet (Lasix) 40 mg PO TID 04/30/23 Unknown History sulfamethoxazole 800 1 tab PO BID #14 tabs Unknown Rx mg-trimethoprim 160 mg tablet (Bactrim DS) methimazole 5 mg tablet 5 mg PO DAILY 10/24/24 Unkno wn History potassium chloride 20 mEq 20 meq PO BID 10/24/24 Unkno wn History tablet,extended release semaglutide 2 mg/dose (8 mg/3 mL) 2 mg subcut QWEEK Unknown History subcutaneous pen injector (Ozempic) Allergy/AdvReac Type Severity Reaction Status Date / Time codeine Allergy Other Verified 11/16/24 14:47 metformin Allergy Abd Verified 11/16/24 14:47 cramps/diarrhea perflutren (From Definplay140) AdvReac Pain in Verified 11/16/24 14:47 joints Family History Father Hypertension Diabetes Mother Hypertension Diabetes Other Cervical cancer Myocardial infarction Skin cancer Surgical History History of cardiac catheterization History of left heart catheterization (03/04/18) torn cartilage behind knee Partially torn MCL Torn PCL Torn meniscus Social History Smoking Status: Former smoker how long ago did patient quit smokin, 2pks/day second hand exposure: Yes alcohol intake: current alcohol intake frequency: a few times a month substance use type: does not use ROS ROS ED ROS Narrative Constitutional: Denies fevers, chills, headaches Cardiovascular: Denies chest pain or palpitations Respiratory: Denies cough and shortness of breath Abdomen: Denies abdominal pain nausea vomit diarrhea : Denies urinary symptoms Neurological: Denies numbness, tingling weakness Musculoskeletal: Complains of right lower extremity pain and swelling as noted above Skin: Denies any rashes or lesions EXAM Physical Exam Narrative Exam Narrative: General: Patient lying in bed rest comfortably did not appear to be in acute distress Head: Atraumatic, normocephalic Eyes: PERRL bilateral, EOMI blood, no conjunctival injection noted Neck: Soft, supple and trachea midline Cardiovascular: Regular in rhythm Respiratory: Clear to auscultation bilaterally Musculoskeletal: Right lower extremity compartments are soft compressible the right calf region is firm but compressible he does have tenderness palpation of the right calf region Extremities: DP pulses +2/4 in the right lower extremity, +5/5 strength noted inthe bilateral upperand lower extremities Neurological: Patient follow commands knew that he was at [facility] year is 2024. Sensation grossly intact bilaterally Skin: Warm, dry contact no rashes or lesions noted Const Vital Signs: 11/16/24 14:43 Temperature 96.8 F L Temperature Source Temporal Pulse Rate 94 Respiratory Rate 15 Blood Pressure 136/88 H Blood Pressure Mean 104 Pulse Ox 100 MDM MDM MDM Narrative Medical decision making narrative: patient is a 49-year-old male who presents to the emerged part with concern forDVT in the right lower extremity. On the differential diagnosis includes but limited to deep venous thrombosis, superficial venous thrombosis, calf strain. Once workup is obtained reviewed he will be reevaluated. Discharge Plan Triage Chief Complaint: Lower Extremity Injury ED Provider: Tad Reeder Dx/Rx/DC Orders Clinical Impression: Right calf pain, Hematoma of leg Prescriptions: No Action Jardiance 10 mg tablet 10 mg PO DAILY Ozempic 2 mg/dose (8 mg/3 mL) pen injector 2 mg subcut QWEEK potassium chloride 20 mEq tablet extended release 20 meq PO BID enoxaparin 150 MG/ML syringe 135 mg SC Q12@0600,1800 methimazole 5 mg tablet 5 mg PO DAILY multivitamin 1 EACH tablet 1 ea PO DAILY cholecalciferol (vitamin D3) 5,000 UNIT capsule 5,000 unit PO DAILY Entresto 97-103 mg tablet 1 tab PO BID carvedilol 12.5 mg tablet 50 mg PO BID Rx Instructions: give with food (meal/snack) furosemide [Lasix] 40 mg tablet 40 mg PO TID Patient Comments: pt. states he has to take 40 mg twice and the other 40 mg is a prn based on his weight sulfamethoxazole-trimethoprim [Bactrim DS] 800-160 mg tablet 1 tab PO BID Qty: 14 0RF spironolactone 25 mg tablet 25 mg PO DAILY Qty: 90 1RF pantoprazole 40 mg tablet,delayed release (DR/EC) 40 mg PO QAM Qty: 90 3RF Primary Care Provider: Jeniffer White Referrals: Jeniffer White DO [Primary Care Provider] - Activity Restrictions/Additional Instructions: Your ultrasound here did not show any evidence of blood clots it did show a collection of blood in your calf region. Call your physician that manages your Lovenox to discuss with them if they think you should hold your Lovenox for a short period of time or not. Return with worsening symptoms or other concerns as discussed here. If you are developing worsening swelling, numbness in your leg, more pain and increasing firmness you need to return immediately Print Language: Trinidadian Disposition Disposition: Home, Self Care What to do if you have Problems For any increased pain, shortness of breath, bleeding, nausea or vomiting, chestpain, or any unexpected problems, contact your Primary Care Provider. Call [facility] ([phone]) or report tothe closest Emergency Room. Call 911 if necessary. 11/16/24 1544 Cosigner Signature (if applicable): CC: Dr. Jeniffer White, ~ Signed [facility]05-29-2025 Discharge summary Author Tad Reeder [facility] Note Date/Time November 16, 2024 3:44p m [facility] Medical Records Department [address] [place] [address] Emergency Department Summary 11/16/24 MR#: [id number] Acct: [id number] Name: KATRINA MELVIN Rep #:[id number] : 1975 49 From: Tad Reeder DO PCP: Dr. Jeniffer White DO Status:REG ER Location: ED HPI History of Present Illness Chief Complaint: Lower Extremity Injury Narrative Narrative: Patient is a 49-year-old male with a past medical history of DVT, PE on Lovenox 130 mg twice daily, type 2 diabetes, hypertension who presented to the emerged part with concern of right leg pain and swelling. Patient states that few weeksago he originally had pain and swelling in his right leg he thought he hurt his calf muscle and states that he thought things would get better. He states that recently on Wednesday he went diving and preparation to go on a trip in 2 weeks to do scuba diving in [facility]. He states that on Wednesday when he woke up he had pain and swelling in his right calf leg again. He states that he has been trying [id number] medications as well as ice heat TENS units etc. without any symptomatic relief. He states that he he thought he was getting better however after work today he noted that he had significant pain and swelling therefore he came here for further evaluation management. He states that in thepast he had an injury in the left leg and he had clot burden from his groin all the way to his foot. He states that this clot took a very long time to breakdown he states that Adam does not work on him he states thaton his Lovenox he will cut himself and he will not bleed as expected for being on without much Lovenox. He is concerned that he has another clot in his leg onthe right side [facility] Medical History Barretts esophagus Fatty liver Thyroid disease Arthritis DVT (deep venous thrombosis) Injury of back Injury of head and neck History of GI bleed Former smoker Shortness of breath on exertion Leg cramps History of edema History of echocardiogram History of stress test Cardiology follow-up encounter History of CHF (congestive heart failure) Rotator cuff arthropathy of left shoulder History of TIA (transient ischemic attack) Diabetes mellitus Hemorrhage of anus and rectum Idiopathic cardiomyopathy Thyroid nodule Essential (primary) hypertension 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 Type 2 diabetes mellitus Medial meniscus tear Diastolic dysfunction with heart failure DVT of leg (deep venous thrombosis) Contusion of left knee, initial encounter Other internal derangements of left knee Pain of left knee after injury Other tear of lateral meniscus, current injury, left knee, subsequent encounter Other tear of medial meniscus, current injury, left knee, subsequent encounter Pulmonary embolism (07/2016) Home Medications ?Medication ?Instructions ?Recorded ?Last Taken ?Type enoxaparin 150 mg/mL subcutaneous 135 mg subcut Q12@06 00,1800 12/10/17 08/03/22 History syringe cholecalciferol (vitamin D3) 125 5,000 unit PO DAILY 1 06/24/17 Unknown History mcg (5,000 unit) capsule multivitamin 1 ea PO DAILY 04/24/18 Unkno wn History spironolactone 25 mg tablet 25 mg PO DAILY #90 tabs Unknown Rx empagliflozin 10 mg tablet 10 mg PO DAILY 02/19/22 Unk nown History (Jardiance) carvedilol 12.5 mg tablet 50 mg PO BID 07/06/22 History sacubitril 97 mg-valsartan 103 mg 1 tab PO BID 3 07/08/22 History tablet (Entresto) pantoprazole 40 mg tablet,delayed 40 mg PO QAM #90 tab s 09/18/22 Unknown Rx release furosemide 40 mg tablet (Lasix) 40 mg PO TID 04/30/23 Unknown History sulfamethoxazole 800 1 tab PO BID #14 tabs Unknown Rx mg-trimethoprim 160 mg tablet (Bactrim DS) methimazole 5 mg tablet 5 mg PO DAILY 10/24/24 Unkno wn History potassium chloride 20 mEq 20 meq PO BID 10/24/24 Unkno wn History tablet,extended release semaglutide 2 mg/dose (8 mg/3 mL) 2 mg subcut QWEEK Unknown History subcutaneous pen injector (Ozempic) Allergy/AdvReac Type Severity Reaction Status Date / Time codeine Allergy Other Verified 11/16/24 14:47 metformin Allergy Abd Verified 11/16/24 14:47 cramps/diarrhea perflutren (From ALGAentis) AdvReac Pain in Verified 11/16/24 14:47 joints Family History Father Hypertension Diabetes Mother Hypertension Diabetes Other Cervical cancer Myocardial infarction Skin cancer Surgical History History of cardiac catheterization History of left heart catheterization (03/04/18) torn cartilage behind knee Partially torn MCL Torn PCL Torn meniscus Social History Smoking Status: Former smoker how long ago did patient quit smokin, 2pks/day second hand exposure: Yes alcohol intake: current alcohol intake frequency: a few times a month substance use type: does not use ROS ROS ED ROS Narrative Constitutional: Denies fevers, chills, headaches Cardiovascular: Denies chest pain or palpitations Respiratory: Denies cough and shortness of breath Abdomen: Denies abdominal pain nausea vomit diarrhea : Denies urinary symptoms Neurological: Denies numbness, tingling weakness Musculoskeletal: Complains of right lower extremity pain and swelling as noted above Skin: Denies any rashes or lesions EXAM Physical Exam Narrative Exam Narrative: General: Patient lying in bed rest comfortably did not appear to be in acute distress Head: Atraumatic, normocephalic Eyes: PERRL bilateral, EOMI blood, no conjunctival injection noted Neck: Soft, supple and trachea midline Cardiovascular: Regular in rhythm Respiratory: Clear to auscultation bilaterally Musculoskeletal: Right lower extremity compartments are soft compressible the right calf region is firm but compressible he does have tenderness palpation of the right calf region Extremities: DP pulses +2/4 in the right lower extremity, +5/5 strength noted inthe bilateral upper and lower extremities Neurological: Patient follow commands knew that he was at [facility] year is 2024. Sensation grossly intact bilaterally Skin: Warm, dry contact no rashes or lesions noted Const Vital Signs: 11/16/24 14:43 Temperature 96.8 F L Temperature Source Temporal Pulse Rate 94 Respiratory Rate 15 Blood Pressure 136/88 H Blood Pressure Mean 104 Pulse Ox 100 MDM MDM MDM Narrative Medical decision making narrative: patient is a 49-year-old male who presents to the emerged part with concern forDVT in the right lower extremity. On the differential diagnosis includes but limited to deep venous thrombosis, superficial venous thrombosis, calf strain. Once workup is obtained reviewed he will be reevaluated. Discharge Plan Triage Chief Complaint: Lower Extremity Injury ED Provider: Tad Reeder Dx/Rx/DC Orders Clinical Impression: Right calf pain, Hematoma of leg Prescriptions: No Action Jardiance 10 mg tablet 10 mg PO DAILY Ozempic 2 mg/dose (8 mg/3 mL) pen injector 2 mg subcut QWEEK potassium chloride 20 mEq tablet extended release 20 meq PO BID enoxaparin 150 MG/ML syringe 135 mg SC Q12@0600,1800 methimazole 5 mg tablet 5 mg PO DAILY multivitamin 1 EACH tablet 1 ea PO DAILY cholecalciferol (vitamin D3) 5,000 UNIT capsule 5,000 unit PO DAILY Entresto 97-103 mg tablet 1 tab PO BID carvedilol 12.5 mg tablet 50 mg PO BID Rx Instructions: give with food (meal/snack) furosemide [Lasix] 40 mg tablet 40 mg PO TID Patient Comments: pt. states he has to take 40 mg twice and the other 40 mg is a prn based on his weight sulfamethoxazole-trimethoprim [Bactrim DS] 800-160 mg tablet 1 tab PO BID Qty: 14 0RF spironolactone 25 mg tablet 25 mg PO DAILY Qty: 90 1RF pantoprazole 40 mg tablet,delayed release (DR/EC) 40 mg PO QAM Qty: 90 3RF Primary Care Provider: Jeniffer White Referrals: Jeniffer White DO [Primary Care Provider] - Activity Restrictions/Additional Instructions: Your ultrasound here did not show any evidence of blood clots it did show a collection of blood in your calf region. Call your physician that manages your Lovenox to discuss with them if they think you should hold your Lovenox for a short period of time or not. Return with worsening symptoms or other concerns as discussed here. If you are developing worsening swelling, numbness in your leg, more pain and increasing firmness you need to return immediately Print Language: Trinidadian Disposition Disposition: Home, Self Care What to do if you have Problems For any increased pain, shortness of breath, bleeding, nausea or vomiting, chestpain, or any unexpected problems, contact your Primary Care Provider. Call [facility] ([phone]) or report to the closest Emergency Room. Call 911 if necessary. 11/16/24 4494 <Electronically signed by Tad Reeder DO> Cosigner Signature (if applicable): CC: Dr. Jeniffer White DO ~ Signed [facility] Work Phone: [phone]) 281-264111-01-2024 History of Present illness Narrative* Anshul Hernandez MD - 04/21/2024 10:00 AM EDT [facility] Trans[facility]iology [facility] Note Katrina Melvin is a 48 y.o. male who presents to the Heart Failure / Transplant Clinic at the [facility] at the [facility] on 04/21/2024 for routine evaluation and follow-up of DCM, and HFrEF with improved function. He presents today for routine follow-up and TTE. The echo looks pretty good and I believe LVEF around 45-50%. RVSP is 21 mmHg. He has no specific CV complaints today. Overall doing well, tolerating work well. He does have intermittent chest heaviness, fatigue feeling after starting work. He doesn't know BP at time. He takes AM meds on empty stomach - usually doesn't eat breakfast prior. PHYSICAL EXAMINATION: Vitals: Smoking Status Former Wt Readings from Last 2 Encounters: 10/28/23 122 kg (269 lb) 10/20/23 122 kg (269 lb) BP 105/57 (BP Location: Left arm, BP Position: Standing) Pulse 86 Resp 18 Ht 1.829 m (6') Wt 121.6 kg (268 lb) Comment: stated wt SpO2 98% BMI 36.35 kg/m Smoking Status Former Smoking Status Former General/Constitutional: Alert and oriented [...] / ARB / ARNI: Entresto 97/103 bid --> changing to 49/51 qam and 97/103 q pm. Beta Harman: carvedilol 50 mg bid MRA: spironolactone 25 mg qd SGLT2 Inh: Empagliflozin 10 mg every day GLP-1RA: Semaglutide Diuretic: lasix 40 mg tid / PRN Vasodilator: no Antiarrhythmic: no Antiplt: no Antithrombotic: no ICD: NA [facility] NURSE: NA LAB and CV Test results: cMRI (10/2019) - LVEF 45% RHC (2019) - RA 3, PA 11/05 (15), PCWP 13, CO 6.7, CI 2.6 CPET (2019): Pk VO2 18 (66% predicted). VE/VCO2 27 TTE (04/21/24): LVEF 40-45% / Nl RVSP ASSESSMENT Dilated CM --etiology unknown (idiopathic) --No FH / Genetic testing negative --nonischemic fibrosis per MRI Chronic systolic HF (HFimpEF) --NYHA class I-II / stage C --LVEF 32% 03/2018 cMRI --LVEF 35% per TTE 06/2019. --Pk VO2 18.6 (at 300 pounds) --RHC with excellent hemodynamics (see above) --MRI (10/2019) - 45% LVEF --TTE (04/21/24) - 40% Hx of bilateral PE (2015) --had DVT lower extremity post knee injury --No hx of hypercoag state. --remains on enoxaparin T2DM --On SGLT2 inhibitor Jardiance - now on semaglutide / SGLT2 inh. Obesity --Body mass index is 36.35 kg/m . Hepatic fibrosis / ? WILSON --per pts report of recent evaluation in [place]. --referred to [facility] Hepatology PLAN - reduce AM entresto to 49/51 for sx in AM. - RTC one yr. Anshul Hernandez M.D. Advanced Heart Failure Program Division of Cardiovascular Medicine [facility] [email or web address] [phone] fax [phone] * Marnie Zapata RN - 04/21/2024 10:00 AM EDT Patient Education Patient education regarding the following topic(s) was provided on 04/21/2024: plan of care . Recommendations from Dr. Hernandez at your office appt today at [facility]: Dr. Hernandez will send you a Scrybe message after he gets the final read on the Echo Follow up with Dr. Hernandez in one year Try to take Entresto 1/2 tab in the AM and 1 full tab in the PM to see if this helps with your symptoms you are having in the AM. Those in attendance for the education included: patient. Barriers in providing the education included: none. The following methods were used in providing the education: explanation. [facility] handouts given included: After visit summary. The response of those in attendance was: states/identifies education topic. The following Clinical Intervention(s) occurred during today s visit: Orthostatic or Coarctation vital signs completed and Extensive teaching provided to patient and or support team regarding plan ofcare documented in this encounterACMC [facility] System11-01-2024 Instructions* Patient Instructions* Marnie Zapata RN - 04/21/2024 10:00 AM EDT Recommendations from Dr. Hernandez at your office appt today at [facility]: Dr. Hernandez will send you a mychart message after he gets the final read on the Echo Follow up with Dr. Hernandez in one year Try to take Entresto 1/2 tab in the AM and 1 full tab in the PM to see if this helps with your symptoms you are having in the AM. Your after visit summary (AVS) is viewable in [facility] My Chart. Call RN if you have cardiac questions/concerns M-F 8 to 4:30 ; office # [phone], option 6, then option 2. Guidelines for home management: 1. Continue to monitor weight first thing each morning. 2. Report to the CHF CLINIC ([phone]) any significant weight change. Remember that weight change of 2-3 lbs. in 1 day or 5 lbs in a week is "significant" and likely represents changes in "fluid"status. 3. If you are taking a diuretic [...] or ICD shock, trouble catching breath while lyingdown, increased edema or abdominal bloating). Remember that even "minor" changes in symptoms may beimportant. Also report any changes in medications including "over the counter" medications. 6. DO NOT take NSAID's for [...] to have labs/tests run outside of the [facility] and you do not hear from us1-2 days after they are performed, you must call us to ensure we received the results. Office fax #[phone]. No news does not necessarily mean that your tests are normal, it could mean we did not get the results. For questions/updates: please provide your name with spelling, date of and question or update All calls are prioritized and responses researched, if possible, prior to calls being returned. Call Scheduling for any appointment/procedure verification or changes [phone], option 7 or [facility] at [phone], option 1. documented in this encounterACMC Healthcare System11-03-2023 History of Present illness Narrative* Olivia Borden APRN-CASTING MACHINE OPERATOR HELPER - 04/23/2023 3:00 PM EDT Clinical Care Team: -Referring Provider for today's consult: Self, Self -Primary Care Provider: Jeniffer Douglas, Self Today, we had the pleasure of seeing your patient Katrina Melvin at the [facility] Gastroenterology, Hepatology and Nutrition Clinic on 04/23/2023. Thank you for referring the patient to the [facility] Gastroenterology, Hepatology and Nutrition Clinic.If you have any questions or concerns please feel free to contact my office. Chief Complaint Patient presents with Follow-up Patient states here for follow up. Patient states not having as many symptoms as last visit History of Present Illness: Katrina Melvin is a 47 y.o. male who presents to the [facility] Hepatology Clinic today for [...] then underwent a liver biopsy which did notsuggest cirrhosis, however found significant microvascular steatosis and hence was referred to the Hepatology clinic. Given discordant findings, his bx slides were reviewed by the [facility] pathologists. The interpretation showed mild macrovascular steatosis with focal sinusoidal fibrosis. No evidence ofbridging fibrosis or cirrhosis. MACKENZIE with Dr. Boyce 10/23/2022 Since [facility], the patient reports he has been doing well. He has been working on weight loss and has lost about 15 lbs since October. His insulin was stopped and he was started on monjaro about 3mos ago. Hehas also been trying to make healthier diet choices. Otherwise, he denies signs or symptoms of worsening liver function including jaundice, pruritus, abdominal swelling, peripheral edema, gastrointest inal bleeding or mental status changes suggestive of [...] chest pain, shortness of breath, nausea, vomiting, abdominalpain, diarrhea, constipation, melena, hematochezia, dysuria, hematuria, or [...] CUFF REPAIR Left 10/15/2021 Laterality: Left; Surgeon: Osmani Manzanares MD; Location: [facility] PERIOP ARTHROSCOPY SHOULDER W/ SUBACROMIAL DECOMPRESSION/ACROMIOPLASTY ADD-ON Left 10/15/2021 Laterality: Left; Surgeon: Osmani Manzanares MD; Location: [facility] PERIOP TENODESIS BICEPS LONG TENDON Left 10/15/2021 Laterality: Left; Surgeon: Osmani Manzanares MD; Location: [facility] PERIOP ANKLE SURGERY Left 1992 Family History [...] use: Not Currently Types: Marijuana Comment: used mairjuana over 30 yeas ago Sexual activity: Yes [...] Metformin, Immunizations Immunization History Administered Date(s) Administered 2358-4966 COVID-19 monovalent vaccine, mRNA, Pfizer, 0.3 ML [...] (Temporal) Resp 16 Ht 1.93 m (6' 4") Wt 133.6 kg (294 lb 9.6 oz) SpO2 97% BMI 35.86 kg/m Smoking Status Former Constitutional: Well developed, well nourished, in no acute distress. Oriented to person, place, and time. HEENT: Normocephalic, negative for any scleral icterus. Cardiovascular: Regular rate and rhythm, with a normal S1/S2, without any appreciable murmurs, rubsor gallops. Pulmonary: Normal breath sounds, without any [...] His bx slides were reviewed by the OS pathologistsand the interpretation showed mild macrovascular steatosis with [...] Division of Gastroenterology, Hepatology, & Nutrition [facility] Diagnoses and associated orders for this visit: ICD-10-CM 1. WILSON (nonalcoholic steatohepatitis) K75.81 documented in this encounterACMC Healthcare System11-03-2023 History of Present illness Narrative* Anshul Hernandez MD - 04/23/2023 10:30 AM EDT Advanced Heart Failure and Transplant Cardiology Clinic Note Katrina Melvin is a 47 y.o. male who presents to the Heart Failure / Transplant Clinic at the [facility] at the [facility] on 04/23/2023 for routine evaluation and follow-up [...] 86 Resp 16 Ht 1.93 m (6' 4") Wt 132 kg (291 lb) SpO2 98% [...] ARB / ARNI: Entresto 97/103 bid Beta Harman: carvedilol 50 mg bid MRA: spironolactone 25 mg qd SGLT2 Inh: Empagliflozin 10 mg qd Diuretic: lasix 40 mg tid Vasodilator: no Antiarrhythmic: no ICD: NA [facility] NURSE: NA LAB and CV Test results: cMRI [...] per pts report of recent evaluation in [place]. --referred to [facility] Hepatology PLAN RTC to see me in one yr Remote visit with [facility] in 6 mos. Anshul Hernandez M.D. Advanced Heart Failure Program Division of Cardiovascular Medicine [facility] [email or web address] ph [phone] fax [phone] * Monica Borden RN - 04/23/2023 10:30 AM EDT Patient Education Patient education regarding the following topic(s) was provided on 04/23/2023: plan of care. -no medication changes today -follow up Siria MONGE in 6 months-telehealth -follow up with Dr. Hernandez in 1 year Those in attendance for the education included: patient and . Barriers in providing the education included: none. The following methods were used in providing the education: explanation. [facility] handouts given included: After visit summary. The response of those in attendance was: states/identifies education topic. The following Clinical Intervention(s) occurred during today s visit: Orthostatic or Coarctation vital signs completed and Extensive teaching provided to patient and or support team regarding plan ofcare documented in this encounterOSU [facility]health11-03-2023 Instructions* Patient Instructions* Monica Borden RN - 04/23/2023 10:30 AM EDT The following instructions were given today: -no medication changes today -follow up Siria MONGE in 6 months-telehealth -follow up with Dr. Hernandez in 1 year Your after visit summary (AVS) is viewable in [facility] My Chart. Call RN if you have cardiac questions/concerns M-F 8 to 4:30 ; office # [phone], option 6, then option 2. Guidelines for home management: 1. Continue to monitor weight first thing each morning. 2. Report to the CHF CLINIC ([phone]) any significant weight change. Remember that weight change of 2-3 lbs. in 1 day or 5 lbs in a week is "significant" and likely represents changes in "fluid"status. 3. If you are taking a diuretic [...] or ICD shock, trouble catching breath while lyingdown, increased edema or abdominal bloating). Remember that even "minor" changes in symptoms may beimportant. Also report any changes in medications including "over the counter" medications. 6. DO NOT take NSAID's for [...] to have labs/tests run outside of the [facility] and you do not hear from us1-2 days after they are performed, you must call us to ensure we received the results. Office fax #[phone]. No news does not necessarily mean that your tests are normal, it could mean we did not get the results. For questions/updates: please provide your name with spelling, date of and question or update All calls are prioritized and responses researched, if possible, prior to calls being returned. Call Scheduling for any appointment/procedure verification or changes [phone], option 7 or [facility] at [phone], option 1. documented in this encounterACMC Healthcare System05-05-2023 History of Present illness Narrative* Reuben Boyce MD - 10/23/2022 9:00 AM EDT Images from the original note were not included. Hepatology Outpatient Consultation -Referring Provider for today's consult: Jeniffer White DO -Primary Care Provider: Jeniffer White HPI: Today we had the pleasure of [...] then underwent a liver biopsy which did notsuggest cirrhosis, however found significant microvascular steatosis and [...] diet. 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 The patient also denies any abdominal pain, jaundice, abdominal distension, confusion, melena, hematochezia, or hematemesis. A 10 system review was performed and other than as mentioned in the 'History of Present Illness' section above was negative for fevers, chills, headaches, decreased hearing, visual disturbances, nasal discharge, cough, chest pain, shortness of breath, urinary frequency, light-headedness, dizziness,mood disturbances, dry eyes, dry mouth, new skin [...] CUFF REPAIR Left 10/15/2021 Laterality: Left; Surgeon: Osmani Manzanarse MD; Location: [facility] PERIOP ARTHROSCOPY SHOULDER W/ SUBACROMIAL DECOMPRESSION/ACROMIOPLASTY ADD-ON Left 10/15/2021 Laterality: Left; Surgeon: Osmani Manzanares MD; Location: [facility] PERIOP TENODESIS BICEPS LONG TENDON Left 10/15/2021 Laterality: Left; Surgeon: Osmani Manzanares MD; Location: [facility] PERIOP ANKLE SURGERY Left 1992 Family History [...] smoking use included cigarettes. He has a 5.00pack-year smoking history. He quit smokeless tobacco use about 14 years ago. He reports that he does not currently use alcohol. He reports that he does not currently use drugs after having used the following drugs: Marijuana. He Objective: Vital Signs BP 94/68 (BP Location: Right arm, BP Position: Sitting) Pulse 74 Resp 18 Ht 1.93 m (6' 4") Wt (!) 140.2 kg (309 lb) SpO2 [...] showed hepatomegaly with fatty infiltration Lab results: [facility] Nursing Assessment 09/11/2022 09/11/2022 02/20/2022 02/20/2022 [...] - - - HEIGHT (IN INCHES) - 76 - 76 - - - BSA (Calculated - sq [...] recommendations to follow pending above workup Reuben Boyce MD [facility] Gastroenterology, Hepatology and Nutrition [facility] Pager: [phone] 10/22/2022 10:02 PM * Amaris Borden MA - 10/23/2022 9:00 AM EDT This [employer] verified the patients name and date of . documented in this encounterACMC Healthcare System05-05-2023 Instructions* Patient Instructions* Reuben Boyce MD - 10/23/2022 9:00 AM EDT Please [...] clinic in 6 months. documented in this [facility]03-24-[facility] History of Present illness Narrative* Anshul Hernandez MD - 09/11/2022 9:30 AM EDT Advanced Heart Failure and Transplant Cardiology Clinic Note Katrina Melvin is a 46 y.o. male who presents to the Heart Failure / Transplant Clinic at the [facility] at the [facility] on 09/11/2022 for routine evaluation and follow-up of DCM. He presents today for routine follow-up. He has no CV complaints - although he states he was not able to reduce diuretic dose, which we discussed doing after his last visit here. He remains on same meds (excellent GDMT regimen) for HFimpEF. Has had medical care locally ([place]) for gastritis, esophagitis, and hepatic fibrosis. He states that the latter was discovered as part of evaluation for the "bleeding" - and abd US raised questions about [...] 86 Resp 18 Ht 1.93 m (6' 4") Wt 132.9 kg (293 lb) SpO2 96% [...] ARB / ARNI: Entresto 97/103 bid Beta Harman: carvedilol 50 mg bid MRA: spironolactone 25 mg qd SGLT2 Inh: Empagliflozin 10 mg qd Diuretic: lasix 40 mg bid Vasodilator: no Antiarrhythmic: no ICD: NA [facility] NURSE: NA LAB and CV Test results: cMRI [...] per pts report of recent evaluation in [place]. --referred to [facility] PLAN Remains on good HF therapy, currently NYHA class I No changes and no testing indicated at this time. RTC in 8 mos Anshul Hernandez M.D. Advanced Heart Failure Program Division of Cardiovascular Medicine [facility] [email or web address] ph [phone] fax [phone] * Monica Borden RN - 09/11/2022 9:30 AM EDT Patient Education Patient education regarding the following topic(s) was provided on 09/11/2022: plan of care. -no medication changes today -follow up with Dr. Hernandez in 8 months Those in attendance for the education included: Patient and . Barriers in providing the education included: none. The following methods were used in providing the education: explanation. [facility] handouts given included: After visit summary. The response of those in attendance was: states/identifies education topic. The following Clinical Intervention(s) occurred during today s visit: Orthostatic or Coarctation vital signs completed and Extensive teaching provided to patient and or support team regarding plan ofcare documented in this encounterU [facility]03-24-2023 Instructions* Patient Instructions* Monica Borden RN - 09/11/2022 9:30 AM EDT Recommendations from Dr Hernandez today: -no medication changes today -follow up with Dr. Hernandez in 8 months After visit summary (AVS) is viewable in [facility] My [facility]. Send My Chart message for non-urgent inquiry or Call RN if you have cardiac questions/concerns M-F 8 to 4:30 ; office # [phone], option 6, then option 2. Guidelines for home management: 1. Continue to monitor weight first thing each morning. 2. Report to the CHF CLINIC ([phone]) any significant weight change. Remember that weight change of 2-3 lbs. in 1 day or 5 lbs in a week is "significant" and likely represents changes in "fluid"status. 3. If you are taking a diuretic [...] or ICD shock, trouble catching breath while lyingdown, increased edema or abdominal bloating). Remember that even "minor" changes in symptoms may beimportant. Also report any changes in medications including "over the counter" medications. 6. DO NOT take NSAID's for [...] to have labs/tests run outside of the [facility] and you do not hear from us1-2 days after they are performed, you must call us to ensure we received the results. Office fax #[phone]. No news does not necessarily mean that your tests are normal, it could mean we did not get the results. For questions/updates: please provide your name with spelling, date of and question or update All calls are prioritized and responses researched, if possible, prior to calls being returned. Call Scheduling for any appointment/procedure verification or changes [phone], option 7 or [facility] at [phone], option 1. documented in this encounterACMC Healthcare System01-18-2023 Procedure note [facility]01-18-2023 Procedure [facility] 07-08-2022 Procedure [facility]01-18-2023 Procedure note [facility]01-11-2023 Note* Addendum Note - Anshul Hernandez MD - 07/01/2022 8:17 AM ESTAddended by: ANSHUL HERNANDEZ on: 07/01/2022 08:17 AM Modules accepted: Orders [facility] Note* Addendum Note - Anshul Hernandez MD - 07/01/2022 8:17 AM ESTAddended by: ANSHUL HERNANDEZ on: 07/01/2022 08:17 AM Modules accepted: Orders [facility]01-11-2023 Miscellaneous Notes* Addendum Note - Anshul Hernandez MD - 07/01/2022 8:17 AM ESTAddended by: ANSHUL HERNANDEZ on: 07/01/2022 08:17 AM Modules accepted: Orders * Addendum Note - Marnie Zapata RN - 07/01/2022 8:00 AM ESTAddended by: MARNIE ZAPATA on: 07/01/2022 08:00 AM Modules accepted: Orders * Telephone Encounter - Marnie Zapata RN - 07/01/2022 7:59 AM EST Pended the [address] Hernandez to review/sign * Telephone Encounter - Brenda Hinds - 06/30/2022 3:45 PM EST [facility] for: Entresto.Per [...] Medication Access Team coordinated the following: [facility] PAC Clinics: Cardiology Care Coordination Non-Specialty Prescriptions: 1, 15-20 min Brenda Hinds [id number] documented in this encounterOSK[facility]-2023 Note* Addendum Note - Marnie Zapata RN - 07/01/2022 8:00 AM ESTAddended by: MARNIE ZAPATA on: 07/01/2022 08:00 AM Modules accepted: Orders [facility] Note* Addendum Note - Marnie Zapata RN - 07/01/2022 8:00 AM ESTAddended by: MARNIE ZAPATA on: 07/01/2022 08:00 AM Modules accepted: Orders [facility]01-11-2023 Telephone encounter Note* Telephone Encounter - Marnie Zapata RN - 07/01/2022 7:59 AM EST Pended the [address] Hernandez to review/sign [facility]01-10[facility] Telephone encounter Note* Telephone Encounter - Brenda Hinds - 06/30/2022 3:45 PM EST [facility] for: Entresto.Per [...] Coordination Non-Specialty Prescriptions: 1, 15-20 min Brenda Petersonon [id number] [facility]12-[facility] History of Present illness Narrative* Osmani Manzanares MD - 05/22/2022 10:00 AM EST Chief Complaint Patient presents with Left Shoulder [...] of his next appointment. documented in this encounterOSKet[facility]10-07-2022 Miscellaneous Notes* Telephone Encounter - Mya Mercer - 03/27/2022 10:34 AM EDT Patient cancelled his 6 mo follow up as he will be out of town and declined to reschedule at this time. documented in this encounterC[facility]* Addendum Note - Anshul Hernandez MD - 03/09/2022 12:22 PM EDTAddended by: ANSHUL HERNANDEZ on: 03/09/2022 12:22 PM Modules accepted: Orders [facility] Note* Addendum Note - Anshul Hernandez MD - 03/09/2022 12:22 PM EDTAddended by: ANSHUL HERNANDEZ on: 03/09/2022 12:22 PM Modules accepted: Orders [facility] Miscellaneous Notes* Addendum Note - Anshul Hernandez MD - 03/09/2022 12:22 PM EDTAddended by: ANSHUL HERNANDEZ on: 03/09/2022 12:22 PM Modules accepted: Orders * Addendum Note - Alona Ramirez RN - 03/09/2022 12:21 PM EDTAddended by: ALONA RAMIREZ on: 03/09/2022 12:21 PM Modules accepted: Orders * Telephone Encounter - Alona Ramirez RN - 02/27/2022 8:04 AM EDT Patient called requesting refill of lasix. Med verified from last clinic visit 02/20/22. Return to clinic 09/04/22. Medication will be refilled by e-fax after it has been approved by the attending physician. documented in this encounterACMC Healthcare System09-19-2022 Note* Addendum Note - Alona Ramirez RN - 03/09/2022 12:21 PM EDTAddended by: ALONA RAMIREZ on: 03/09/2022 12:21 PM Modules accepted: Orders [facility] Note* Addendum Note - Alona Ramirez RN - 03/09/2022 12:21 PM EDTAddended by: ALONA RAMIREZ on: 03/09/2022 12:21 PM Modules accepted: Orders [facility] Telephone encounter Note* Telephone Encounter - Alona Ramirez RN - 02/27/2022 8:04 AM EDT Patient called requesting refill of lasix. Med verified from last clinic visit 02/20/22. Return to clinic 09/04/22. Medication will be refilled by e-fax after it has been approved by the attending physician. [facility] History of Present illness Narrative* Anshul Hernandez MD - 02/20/2022 11:30 AM EDT Advanced Heart Failure and Transplant Cardiology Clinic Note Katrina Melvin is a 46 y.o. male who presents to the Heart Failure / Transplant Clinic at the [facility] the [facility] on 02/20/2022 for routine evaluation and follow-up of DCM. He presents today for routine follow-up. He has been feeling more dyspneic, and fatigued since return from vacation to [facility]. While there, he was amazingly functional, actually able to jog a mile in the heat, and did not require his usual diuretic dosing. He immediately noted return of his HF sx upon returning to [place]. He is thinking that the very low humidity in [facility] was a major benefit - but he [...] 87 Resp 18 Ht 1.93 m (6' 4") Wt 129 kg (284 lb 4.8 oz) [...] ARB / ARNI: Entresto 97/103 bid Beta Harman: carvedilol 50 mg bid MRA: spironolactone 25 mg qd SGLT2 Inh: Empagliflozin 10 mg qd Diuretic: lasix 40 mg bid Vasodilator: no Antiarrhythmic: no ICD: NA [facility]ACT[facility] NURSE: NA LAB and CV Test results: cMRI (10/2019) - LVEF 45% RHC (2019) - RA 3, PA 21/ (15), PCWP 13, CO 6.7, CI 2.6 [...] improved functional capacity while he was in [facility]. Concluded that there were likely multiple factors, and not secondary to the climate alone. Nevertheless, he is exploring options for moving to another low humidity area in [place]. We discussedthat it would be important for him to spend some time there to determine how he feels, prior to making a move. Anshul Hernandez M.D. Advanced Heart Failure Program Division of Cardiovascular Medicine [facility] [email or web address] ph [phone] fax [phone] * Alona Ramirez RN - 02/20/2022 11:30 AM EDT Patient Education Patient education regarding the following [...] patient and or support team regarding plan ofcare documented in this encounterU [facility]09-02-2022 Instructions* Patient Instructions* Alona Ramirez RN - 02/20/2022 11:30 AM [...] M-F 8 to 4:30 ; office # [phone], option 6, then option 2. Guidelines for home management: 1. Continue to monitor weight first thing each morning. 2. Report to the CHF CLINIC ([phone]) any significant weight change. Remember that weight change of 2-3 lbs. in 1 day or 5 lbs in a week is "significant" and likely represents changes in "fluid"status. 3. If you are taking a diuretic [...] or ICD shock, trouble catching breath while lyingdown, increased edema or abdominal bloating). Remember that even "minor" changes in symptoms may beimportant. Also report any changes in medications including "over the counter" medications. 6. DO NOT take NSAID's for [...] to have labs/tests run outside of the [facility] and you do not hear from us1-2 days after they are performed, you must call us to ensure we received the results. Office fax #[phone]. No news does not necessarily mean that your tests are normal, it could mean we did not get the results. For questions/updates: please provide your name with spelling, date of and question or update All calls are prioritized and responses researched, if possible, prior to calls being returned. Call Scheduling for any appointment/procedure verification or changes [phone], option 7 or [facility] at [phone], option 1. documented in this encounterACMC Healthcare System08-19-2022 History of Present illness Narrative* Osmani Manzanares MD - 02/06/2022 10:00 AM EDT Chief Complaint Patient presents with Left Shoulder [...] up in 3months. Work on stretching then strengthening.If there are any questions prior to this, he was instructed to contact the office. All questions were answered to the his satisfaction. He does not need new xray's upon arrival of his next appointment. documented in this [facility]07-08-2022 History of Present illness Narrative* Osmani Manzanares MD - 12/26/2021 10:00 AM EDT Chief Complaint Patient presents with Left Shoulder [...] of his next appointment. documented in this encounterACMC Healthcare System06-03-2022 History of Present illness Narrative* Osmani Manzanares MD - 11/21/2021 9:30 AM EDT Chief Complaint Patient presents with Left Shoulder [...] of his next appointment. documented in this encounterACMC Healthcare System05-09-2022 Instructions* Patient Instructions* Burt Andrea PA-C - 10/27/2021 11:53 AM [...] where to find a medication drop box [email or web address] Please visit our websites for reference: [email or web address]. [email or web address] documented in this encounterU [facility]05-09-2022 History of Present illness Narrative* Burt Andrea PA-C - 10/27/2021 11:40 AM EDT Chief Complaint Patient presents with Left Shoulder - Post Op Visit 46 y/o Male. 1w 5d s/p Left shoulder arthroscopic rotator cuff repair (subscapularis), arthroscopicdebridement, arthroscopic subacromial decompression with acromioplasty & arthroscopic biceps tenodesis (DOS 10/15/21) w/ Dr Manzanares -- Patient is doing well. Continues to take pain medication as needed. Has some tenderness on anterior shoulder. Says it feels like it "wants to pop out". SUBJECTIVE: Katrina returns for post operative follow up. Reports Fair pain control with the need for prn oxycodone pain medication. has not started physical therapy. denies fevers, chills, night sweats. deniesnausea, vomiting. denies chest pain, calf pain, shortness of breath. denies warmth, drainage or erythema from the surgical site or other signs of infection. Katrina has been compliant with the slingimmobilization and postoperative instructions. Patient presents today about [...] use acetaminophen for pain control as well. Continueto monitor for signs for signs of infection. [...] use of firearm again in subsequent visits basedon patient's progression. If there are any questions prior to this, the patient was instructed to contact the office. All questions were answered to the patient's satisfaction. The patient does not need new xray's upon arrival of next appointment. documented in this encounterOSU [facility]health04-27-2022 Nurse Note* Cathy Coleman RN - 10/15/2021 11:00 AM EDT Discharge instructions and prescriptions reviewed with and given to patient and family; both patient and family verbalized an understanding of instructions. Questions answered. documented in this encounterOSU Trihealth04-27-2022 Nurse Surgical operation note* Cathy Coleman RN - 10/15/2021 11:00 AM EDT Discharge instructions and prescriptions reviewed with and given to patient and family; both patient and family verbalized an understanding of instructions. Questions answered. [facility] Note* Op Note - Osmani Manzanares MD - 10/15/2021 9:36 AM EDT PATIENT NAME: Katrina Melvin AGE: 46 y.o. DATE OF PROCEDURE: 10/15/21 ATTENDING SURGEON: Osmani Manzanares MD ASSISTANTS: ZOILA Gomez Their assistance [...] who presented with left traumatic rotator cuff tear.Please see my clinical notes for full details. [...] surgery, block related problems, anesthetic complications, medical compli cations, arthritis, implant failure, and neurovascular injury, even, in rare cases, loss of limb orlife. Written informed consent was signed and placed [...] preoperative biceps symptoms as well as intraoperative bicepstearing and instability, biceps tenodesis was indicated. A fiberlink tape suture was passed in luggage tag fashion through the biceps tendon. The biceps tendon was then tenotomized in the joint usingarthroscopic scissors. The superior labrum was debrided. Attention [...] Using the shaver and electrocautery, a thorough bursectomywas performed, followed by release of the coracoacromial [...] infraspinatus rotator cuff was inspected and intact. Therewas significant bursitis in the subacromial space that [...] more superior suture was passed with as Essp resew suture passed through the rolled upper border of the subscapularis tendon. Arthroscopic knot tying was then performed reducing the subscapularis to the lesser tuberosity nicely. Next, attention turned towards the lateral row. The bicipital tunnel was unroofed and the bicipitalgroove was identified. The four suture limbs from the subscapularis repair as well as the luggage tag FiberLink suture from our biceps were loaded into a 4.75mm Swivel Lock anchor. This was placed inthe bicipital groove and the sutures were independently tensioned prior to final anchor seating. The sutures were cut. This completed our double row rotator cuff repair. The repair was water tight and the rotator cuff moved as one functional until with gentle range of motion of the shoulder. Soft tissue and bony debris were irrigated out thoroughly. This also completed our arthroscopic biceps teno desis. The portals were closed with 3-0 monocryl. A sterile dressing was applied. The surgical counts werecompleted and all counts were correct at the completion of the case. The patient's arm was placed into a postoperative sling. The patient was extubated at the completion of the case and returned to the recovery room in stable condition. I was present for all critical portions of the procedure. ZOILA Gomez assisted with all aspects of the surgical procedure including patient preoperativeevaluation, positioning, arthroscopic rotator cuff repair, subacromial decompression and acromioplasty, open biceps tenodesis, closure, and sling application. POSTOPERATIVE PLAN: Katrina Melvin will be discharged home on an outpatient basis. He will be seen in the office in 10-14 days for suture removal and wound care. He was given prescriptions for multimodal pain medicationin accordance with our institutaional pain protocol, nausea medicine, and home exercises. He will be placed on the subscapularis rotator cuff repair protocol postoperatively. Intraoperative findings,procedures performed, and postoperative plan were discussed with the patient and family on the day of surgery. Sling 6 weeks PT 4 weeks [facility] Work Phone: [phone]) 488-715404-27-2022 Note* Brief Op Note - Osmani Manzanares MD - 10/15/2021 9:36 AM EDT Katrina Melvin ([id number]) PRE OPERATIVE DIAGNOSIS Rotator cuff tear [M75.100] POST OPERATIVE DIAGNOSIS Post-Op Diagnosis Codes: * Rotator cuff tear [M75.100] PROCEDURE PERFORMED Procedure(s) (LRB): ARTHROSCOPY SHOULDER W/ ROTATOR CUFF REPAIR (Left) ARTHROSCOPY SHOULDER W/ SUBACROMIAL DECOMPRESSION/ACROMIOPLASTY ADD-ON PX (Left) TENODESIS BICEPS LONG TENDON (Left) PRIMARY CLOSURE Yes INTRAOPERATIVE FINDINGS No significant abnormalities SURGEON Surgeon(s) and Role: * Osmani Manzanares MD - Primary ANESTHESIOLOGIST Anesthesiologist: Berta Leon MD TAWER: Victor Hugo Prescott APRN-TAWER Type Cutter: GILDA Morales SURGICAL STAFF Sld Educational Aide: Thelma Cabezas RN; Anamaria Delgado RN Scrub Person: Nena Wesley Section Weaver: Albina Roth COMPLICATIONS None ESTIMATED BLOOD LOSS Minimal SPECIMENS No specimen sent * No specimens in log * Osmani Manzanares MD October 15, 2021 9:36 AM [facility]04-27-2022 Miscellaneous Notes* Op Note - Osmani Manzanares MD - 10/15/2021 9:36 AM EDT PATIENT NAME: Katrina Melvin AGE: 46 y.o. DATE OF PROCEDURE: 10/15/21 ATTENDING SURGEON: Osmani Manzanares MD ASSISTANTS: ZOILA Gomez Their assistance [...] who presented with left traumatic rotator cuff tear.Please see my clinical notes for full details. [...] surgery, block related problems, anesthetic complications, medical compli cations, arthritis, implant failure, and neurovascular injury, even, in rare cases, loss of limb orlife. Written informed consent was signed and placed [...] preoperative biceps symptoms as well as intraoperative bicepstearing and instability, biceps tenodesis was indicated. A fiberlink tape suture was passed in luggage tag fashion through the biceps tendon. The biceps tendon was then tenotomized in the joint usingarthroscopic scissors. The superior labrum was debrided. Attention [...] Using the shaver and electrocautery, a thorough bursectomywas performed, followed by release of the coracoacromial [...] infraspinatus rotator cuff was inspected and intact. Therewas significant bursitis in the subacromial space that [...] more superior suture was passed with as Essp resew suture passed through the rolled upper border of the subscapularis tendon. Arthroscopic knot tying was then performed reducing the subscapularis to the lesser tuberosity nicely. Next, attention turned towards the lateral row. The bicipital tunnel was unroofed and the bicipitalgroove was identified. The four suture limbs from the subscapularis repair as well as the luggage tag FiberLink suture from our biceps were loaded into a 4.75mm Swivel Lock anchor. This was placed inthe bicipital groove and the sutures were independently tensioned prior to final anchor seating. The sutures were cut. This completed our double row rotator cuff repair. The repair was water tight and the rotator cuff moved as one functional until with gentle range of motion of the shoulder. Soft tissue and bony debris were irrigated out thoroughly. This also completed our arthroscopic biceps teno desis. The portals were closed with 3-0 monocryl. A sterile dressing was applied. The surgical counts werecompleted and all counts were correct at the completion of the case. The patient's arm was placed into a postoperative sling. The patient was extubated at the completion of the case and returned to the recovery room in stable condition. I was present for all critical portions of the procedure. ZOILA Gomez assisted with all aspects of the surgical procedure including patient preoperativeevaluation, positioning, arthroscopic rotator cuff repair, subacromial decompression and acromioplasty, open biceps tenodesis, closure, and sling application. POSTOPERATIVE PLAN: Katrina Melvin will be discharged home on an outpatient basis. He will be seen in the office in 10-14 days for suture removal and wound care. He was given prescriptions for multimodal pain medicationin [facility] with [facility], nausea medicine, and home exercises. He will be placed on the subscapularis rotator cuff repair protocol postoperatively. Intraoperative findings,procedures performed, and postoperative plan were discussed with the patient and family on the day of surgery. Sling 6 weeks PT 4 weeks * Brief Op Note - Osmani Manzanares MD - 10/15/2021 9:36 AM EDT Katrina Moore Ngozi ([id number]) PRE OPERATIVE DIAGNOSIS Rotator cuff tear [M75.100] POST OPERATIVE DIAGNOSIS Post-Op Diagnosis Codes: * Rotator cuff tear [M75.100] PROCEDURE PERFORMED Procedure(s) (LRB): ARTHROSCOPY SHOULDER W/ ROTATOR CUFF REPAIR (Left) ARTHROSCOPY SHOULDER W/ SUBACROMIAL DECOMPRESSION/ACROMIOPLASTY ADD-ON PX (Left) TENODESIS BICEPS LONG TENDON (Left) PRIMARY CLOSURE Yes INTRAOPERATIVE FINDINGS No significant abnormalities SURGEON Surgeon(s) and Role: * Osmani Manzanares MD - Primary ANESTHESIOLOGIST Anesthesiologist: Berta Leon MD TAWER: Victor Hugo Prescott APRN-TAWER Type Cutter: GILDA Morales SURGICAL STAFF Sld Educational Aide: Thelma Cabezas RN; Anamaria Delgado RN Scrub Person: Nena Wesley Section Weaver: Albina Roth COMPLICATIONS None ESTIMATED BLOOD LOSS Minimal SPECIMENS No specimen sent * No specimens in log * Osmani Manzanares MD October 15, 2021 9:36 AM documented in this encounterAC[facility] Healthcare System04-27-2022 Hospital Discharge instructions* Discharge Instructions* Burt Andrea PA-C - 10/15/2021 6:28 AM EDT Images from the original note were not included. [facility] Dr. Sean Fish [facility] [place] Dr. Shima Carrasco [address] [facility] [address] Josh Santiago [facility], [id number] Dr. Osmani Manzanares Silvina Acharya PA-C ASIF Gomez PA-C POST-OPERATIVE INSTRUCTIONS ARTHROSCOPIC SHOULDER REPAIR Your recovery after shoulder surgery can take 6-9 months (and sometimes up to a year) to fully recover. It takes 12 weeks for the repair to fully heal, so it is very important to follow all precautions after surgery as directed. These instructions are intended to help you control swelling and pain,and to allow your shoulder and repaired tissues to heal. These instructions are a general guideline, because no patient or procedure is the same. If needed, your surgeon will give you further specific instructions. If you are calling after hours or on the weekend, call [phone] and at the prompt select option2 - Orthopedics director of community education. Do not select Sports Medicine option SLING You are required to wear your sling at all times (including sleeping) until your follow up appointment. This is necessary to protect your repair. You may remove it to work on your hand, wrist, and elbow exercises, for getting dressed, and for hygiene. Otherwise, it should remain on at all times. Ifa squeeze ball was provided with your sling, [...] few days, it is important to stay "ahead" of the pain, using your pain medicine. It is much more difficult to "catch up" to the pain. Depending on your allergies [...] medication and switch to extra strength Tylenol ifneeded. Avoid driving and consuming alcohol while taking pain medication. Common side effects of pain medication are nausea, drowsiness, and constipation. Consider taking medication with food, and also consider using an babq-uyl-bgblzjd stool softener. Unused Medication: Visit the site below to see where to find a medication drop box [email or web address] [email or web address] Keep the surgical dressing clean and dry for the first 72 hours (3 days) after surgery. You may remove the dressing 3 days postop and apply Band-Aids over small incisions and you may tapegauze pads over the larger incisions. Please leave the Steri-Strips intact. They will fall off on their own. If you have drainage more than 5 days after surgery, please contact our office for advice. SHOWER You may shower and get the incisions wet 5 days after surgery, as long as there is no drainage fromthe incisions. Avoid letting the shower stream hit the incisions directly until the sutures are removed. DO NOT scrub incisions or soak under water (bathtub, swimming pool or hot tub etc.) Pat the shoulder dry and then re-apply the dressing SLEEPING You may find it more comfortable to sleep in a semi-reclined position (i.e.. recliner type chair orpropped up on pillows) following shoulder surgery. You [...] 3-4 times per day, 10 times each. Dothe elbow motion slowly, using your non-operative hand [...] surgery that you had and how you areprogressing. PRECAUTIONS After anesthesia, rest for 24 hours. [...] Decrease the pain medications as soon as youcan. This is typically after the first few [...] move the fluid back up your arm. Yourbody will naturally reabsorb the fluid over the [...] within 5 days after surgery, you can hop picker over the counter Milk of Magnesia [...] before bed if possible. The pain medication maycause you to be drowsy. We also suggest taking tylenol PM, Advil PM, or melatonin to assist with sleep. Spasms - Due to surgery, and your arm being in a sling, you may experience muscle spasms or cramps around your shoulder and arm. This is completely normal. If this happens, we suggest using a heatingpad around these muscles for 20 minutes every [...] cannot drive a manual shift car, and youhave to be able to safely operate your vehicle with one arm. We suggest going to an empty parking to get familiar driving with one arm NOTIFY THE OFFICE IMMEDIATELY, , IF YOU DEVELOP ANY OF THE FOLLOWING: If you are calling after hours or on the weekend, call [phone] and at the prompt select option2 - Orthopedics director of community education. Do not select Sports Medicine option Increased [...] Please visit our website for further information: [email or web address] [facility] Attending History and physical note* Burt Andrea PA-C - 10/15/2021 6:27 AM EDT PERIOPERATIVE SURGICAL HISTORY AND PHYSICAL UPDATE Pre-op Diagnoses: Rotator cuff tear [M75.100] Procedure(s): ARTHROSCOPY SHOULDER W/ ROTATOR CUFF REPAIR ARTHROSCOPY SHOULDER W/ SUBACROMIAL DECOMPRESSION/ACROMIOPLASTY ADD-ON PX TENODESIS BICEPS LONG TENDON Surgeon(s): Surgeon(s) and Role: * Osmani Manzanares MD - Primary History and Physical Update: Blood pressure 126/75, pulse 74, temperature 97.3 F (36.3 C), temperature source Infrared, resp. rate 21, height 1.93 m (6' 4"), weight (!) 137.7 kg (303 lb 9.6 oz), SpO2 97 %. I have reviewed Katrina Melvin's medical, surgical and other pertinent history, and I have updated the medication and allergy information in the computerized patient record. I have examined the patient, reviewed the previous H&P completed on date (10/03/21) and there are no changes. Today's surgical history and physical update was completed by ELSA Gomez, 10/15/2021, 6:27 AM. In compliance with the laws of the [facility] Medical Board of [place], the following conditions have been met for [...] of the following: cryotherapy, elevation, compression, NSAIDs, acetaminophen,corticosteroids, regional nerve blockade, local anesthetic, muscle relaxants, gabapentin, and othernon-opioid medications. Despite planned use of non-opioid therapies [...] The patient's account was reviewed on the [place] Automated Rx Reporting System: OAARS. Their controlled substance medication history was found to be aligned with health and medication history. Patient has had no adverse outcomes with this medication. Burt Andrea PA-C, 10/15/2021, 6:27 AM. Source Note - Lizandro Reyes APRN-CASTING MACHINE OPERATOR HELPER - 10/03/2021 12:30 PM EDT Pre-Operative Assessment [...] kg/m2; STOP ? 2 AND Neck ? 40cm) MEDICAL HISTORY: Past Medical History: Diagnosis Date [...] mg by mouth daily only as needed Fmjnkc-Txajvexdo-Cheimrpm-MSM (GLUCOSAMINE CHONDROITIN JOINT PO) Oral, DAILY magnesium oxide (MAG-OX) 400 mg, Oral, DAILY METHIMAZOLE PO 5 mg, Oral, DAILY Multiple Vitamins-Minerals (MULTIVITAMIN ADULT PO) 1 tablet, Oral, DAILY Probiotic Product (PROBIOTIC ADVANCED PO) Oral, NEEDED sacubitril-valsartan 97-103 MG tablet 1 tablet, Oral, 2 TIMES DAILY spironolactone (ALDACTONE) 25 mg, Oral, DAILY ALLERGIES: Allergies [facility]ergen Reactions [facility] [Perflutren Lipid Microsphere] Back pain center REVIEW [...] kg (296 lb) Height: 1.93 m (6' 4") Body mass index is 36.03 kg/m . [...] all laboratory data in the EMR and [facility]/EKG and procedures: I have personally reviewed the EKG and my findings are Normal Sinus Rhythm, normal axis, no blocks,no ST & T wave abnormalities, non-acute ECHO: [...] for at least 24 hours and consider usingCPAP or BiPAP when patient is sleeping for patients if High risk for KHARI Dilated cardiomyopathy Chronic systolic heart failure - on lasix prn, entresto, spironolactone, carvedilol -LVEF 35% per TTE 06/2019, MRI 45% LVEF - 10/2019 -following [facility] cardiology, Dr. Hernandez -per Dr. Hernandez "His CV risk for planned orthopedic (rotator cuff) procedure is acceptable, and no further testing pre-op is required. He should continue on his present CV medications perioperatively. 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 Winter "For upcoming surgery, hold Lovenox after the morning dose day prior to surgery. May resume once deemed safe by surgeon." Hx of TIA -mild memory issues, otherwise [...] Enoxaparin Sodium (LOVENOX SC) Following hematology recommendations "...hold Lovenox after the morning dose day prior to surgery. May resume once deemed safe by surgeon." furOSEmide 40 MG tablet Do Not take the morning of surgery Zoucpv-Uduagpsul-Wdxwcslz-MSM (GLUCOSAMINE CHONDROITIN JOINT PO) Do Not take [...] Melvin. ABDIAZIZ Bai Division of Hospital Medicine [facility]04-[facility] History and physical note* ELSA Gomez - 10/15/2021 6:27 AM EDT PERIOPERATIVE SURGICAL HISTORY AND PHYSICAL UPDATE Pre-op Diagnoses: Rotator cuff tear [M75.100] Procedure(s): ARTHROSCOPY SHOULDER W/ ROTATOR CUFF REPAIR ARTHROSCOPY SHOULDER W/ SUBACROMIAL DECOMPRESSION/ACROMIOPLASTY ADD-ON PX TENODESIS BICEPS LONG TENDON Surgeon(s): Surgeon(s) and Role: * Osmani Manzanares MD - Primary History and Physical Update: Blood pressure 126/75, pulse 74, temperature 97.3 F (36.3 C), temperature source Infrared, resp. rate 21, height 1.93 m (6' 4"), weight (!) 137.7 kg (303 lb 9.6 oz), SpO2 97 %. I have reviewed Katrina Melvin's medical, surgical and other pertinent history, and I have updated the medication and allergy information in the computerized patient record. I have examined the patient, reviewed the previous H&P completed on date (10/03/21) and there are no changes. Today's surgical history and physical update was completed by ELSA Gomez, 10/15/2021, 6:27 AM. In compliance with the laws of the [facility] Medical Board [facility], the following conditions have been met for [...] of the following: cryotherapy, elevation, compression, NSAIDs, acetaminophen,corticosteroids, regional nerve blockade, local anesthetic, muscle relaxants, gabapentin, and othernon-opioid medications. Despite planned use of non-opioid therapies [...] The patient's account was reviewed on the [employer] Rx Reporting System: [email or web address]. Their controlled substance medication history was found to be aligned with health and medication history. Patient has had no adverse outcomes with this medication. Burt Andrea PA-C, 10/15/2021, 6:27 AM. Source Note - Lizandro Reyes, MENTAL HEALTH ADVANCED PRACTICE NURSE-CASTING MACHINE OPERATOR HELPER - 10/03/2021 12:30 PM EDT Pre-Operative Assessment [...] kg/m2; STOP ? 2 AND Neck ? 40cm) MEDICAL HISTORY: Past Medical History: Diagnosis Date [...] mg by mouth daily only as needed Faqkii-Qevaptwsg-Kpijpdti-MSM (GLUCOSAMINE CHONDROITIN JOINT PO) Oral, DAILY magnesium oxide (MAG-OX) 400 mg, Oral, DAILY METHIMAZOLE PO 5 mg, Oral, DAILY Multiple Vitamins-Minerals (MULTIVITAMIN ADULT PO) 1 tablet, Oral, DAILY Probiotic Product (PROBIOTIC ADVANCED PO) Oral, NEEDED sacubitril-valsartan 97-103 MG tablet 1 tablet, Oral, 2 TIMES DAILY spironolactone (ALDACTONE) 25 mg, Oral, DAILY ALLERGIES: Allergies Allergen Reactions Codeine [facility] [Perflutren Lipid Microsphere] Back pain center [...] kg (296 lb) Height: 1.93 m (6' 4") Body mass index is 36.03 kg/m . [...] are Normal Sinus Rhythm, normal axis, no blocks,no ST & T wave abnormalities, non-acute ECHO: [...] for at least 24 hours and consider usingCPAP or BiPAP when patient is sleeping for patients if High risk for KHARI Dilated cardiomyopathy Chronic systolic heart failure - on lasix prn, entresto, spironolactone, carvedilol -LVEF 35% per TTE 06/2019, MRI 45% LVEF - 10/2019 -following [facility] cardiology, Dr. Hernandez -per Dr. Hernandez "His CV risk for planned orthopedic (rotator cuff) procedure is acceptable, and no further testing pre-op is required. He should continue on his present CV medications perioperatively. 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 Winter "For upcoming surgery, hold Lovenox after the morning dose day prior to surgery. May resume once deemed safe by surgeon." Hx of TIA -mild memory issues, otherwise [...] Enoxaparin Sodium (LOVENOX SC) Following hematology recommendations "...hold Lovenox after the morning dose day prior to surgery. May resume once deemed safe by surgeon." furOSEmide 40 MG tablet Do Not take the morning of surgery Rvugiz-Mdfwvwzgu-Cavkopun-MSM (GLUCOSAMINE CHONDROITIN JOINT PO) Do Not take [...] participate in the care of Katrina Melvin. Lizandro Reyes APRN-SARANYA Division of Hospital Medicine documented in this encounterACMC [facility] System04-15-2022 Instructions* Patient Instructions* Lizandro Reyes, MENTAL HEALTH ADVANCED PRACTICE NURSE-CASTING MACHINE OPERATOR HELPER - 10/03/2021 12:53 PM EDT Patient Name: [...] 3. DO NOT wear lotion, makeup, nail indonesian, contact lens, or perfume/cologne. 4. DO NOT [...] Enoxaparin Sodium (LOVENOX SC) Following hematology recommendations "...hold Lovenox after the morning dose day prior to surgery. May resume once deemed safe by surgeon." furOSEmide 40 MG tablet Do Not take the morning of surgery Sqbcqk-Xmmzyawrn-Rlkkbanf-MSM (GLUCOSAMINE CHONDROITIN JOINT PO) Do Not take [...] days prior to surgery Follow instructions per software support technician if differ from above instructions. Medications that [...] Multi-Vitamins for 3 days. 4. Please contact [facility] if you have changes to your medications before surgery. We work in conjunction with your surgeon but cannot any specific questions about your surgery. If you have any questions specific to our visit today for your preoperative testing, please contactthe [facility] at [phone]. Please direct any questions regarding your surgery to your surgeon s office documented in this encounterACMC Healthcare System04-15-2022 History and physical note* ABDIAZIZ Bai - 10/03/2021 12:30 PM EDT Pre-Operative Assessment [...] kg/m2; STOP ? 2 AND Neck ? 40cm) MEDICAL HISTORY: Past Medical History: Diagnosis Date [...] mg by mouth daily only as needed Jzyeut-Ixhryrnmp-Kptlcabf-MSM (GLUCOSAMINE CHONDROITIN JOINT PO) Oral, DAILY magnesium oxide (MAG-OX) 400 mg, Oral, DAILY METHIMAZOLE PO 5 mg, Oral, DAILY Multiple Vitamins-Minerals (MULTIVITAMIN ADULT PO) 1 tablet, Oral, DAILY Probiotic Product (PROBIOTIC ADVANCED PO) Oral, NEEDED sacubitril-valsartan 97-103 MG tablet 1 tablet, Oral, 2 TIMES DAILY spironolactone (ALDACTONE) 25 mg, Oral, DAILY ALLERGIES: Allergies Allergen Reactions [facility] [Perflutren Lipid Microsphere] Back pain center REVIEW [...] kg (296 lb) Height: 1.93 m (6' 4") Body mass index is 36.03 kg/m . [...] are Normal Sinus Rhythm, normal axis, no blocks,no ST & T wave abnormalities, non-acute ECHO: [...] for at least 24 hours and consider usingCPAP or BiPAP when patient is sleeping for patients if High risk for KHARI Dilated cardiomyopathy Chronic systolic heart failure - on lasix prn, entresto, spironolactone, carvedilol -LVEF 35% per TTE 06/2019, MRI 45% LVEF - 10/2019 -following [facility] cardiology, Dr. Hernandez -per Dr. Hernandez "His CV risk for planned orthopedic (rotator cuff) procedure is acceptable, and no further testing pre-op is required. He should continue on his present CV medications perioperatively. 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 Winter "For upcoming surgery, hold Lovenox after the morning dose day prior to surgery. May resume once deemed safe by surgeon." Hx of TIA -mild memory issues, otherwise [...] Enoxaparin Sodium (LOVENOX SC) Following hematology recommendations "...hold Lovenox after the morning dose day prior to surgery. May resume once deemed safe by surgeon." furOSEmide 40 MG tablet Do Not take the morning of surgery Myjhdq-Yzpiozqte-Fpkwivou-MSM (GLUCOSAMINE CHONDROITIN JOINT PO) Do Not take [...] Melvin. ABDIAZIZ Bai Division of Hospital Medicine [facility] History and physical note* ABDIAZIZ Bai - 10/03/2021 12:30 PM EDT Pre-Operative Assessment [...] kg/m2; STOP ? 2 AND Neck ? 40cm) MEDICAL HISTORY: Past Medical History: Diagnosis Date Bleeding disorder 04/10/2016 Cardiac angina Cardiomyopathy Congestive heart failure Diabetes mellitus DVT (deep venous thrombosis) 2015 Essential hypertension, benign History of blood clots 2015 heart Hyperthyroidism Pulmonary embolism 2016 TIA (transient [...] mg by mouth daily only as needed Jeplub-Qqnozjvcm-Cpjjcqgy-MSM (GLUCOSAMINE CHONDROITIN JOINT PO) Oral, DAILY magnesium oxide (MAG-OX) 400 mg, Oral, DAILY METHIMAZOLE PO 5 mg, Oral, DAILY Multiple Vitamins-Minerals (MULTIVITAMIN ADULT PO) 1 tablet, Oral, DAILY Probiotic Product (PROBIOTIC ADVANCED PO) Oral, NEEDED sacubitril-valsartan 97-103 MG tablet 1 tablet, Oral, 2 TIMES DAILY spironolactone (ALDACTONE) 25 mg, Oral, DAILY ALLERGIES: Allergies Allergen Reactions [facility] [Perflutren Lipid Microsphere] Back pain center REVIEW [...] kg (296 lb) Height: 1.93 m (6' 4") Body mass index is 36.03 kg/m . [...] are Normal Sinus Rhythm, normal axis, no blocks,no ST & T wave abnormalities, non-acute ECHO: [...] for at least 24 hours and consider usingCPAP or BiPAP when patient is sleeping for patients if High risk for KHARI Dilated cardiomyopathy Chronic systolic heart failure - on lasix prn, entresto, spironolactone, carvedilol -LVEF 35% per TTE 06/2019, MRI 45% LVEF - 10/2019 -following [facility] cardiology, Dr. Hernandez -per Dr. Hernandez "His CV risk for planned orthopedic (rotator cuff) procedure is acceptable, and no further testing pre-op is required. He should continue on his present CV medications perioperatively. 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 Winter "For upcoming surgery, hold Lovenox after the morning dose day prior to surgery. May resume once deemed safe by surgeon." Hx of TIA -mild memory issues, otherwise [...] Enoxaparin Sodium (LOVENOX SC) Following hematology recommendations "...hold Lovenox after the morning dose day prior to surgery. May resume once deemed safe by surgeon." furOSEmide 40 MG tablet Do Not take the morning of surgery Nfcokb-Kdbcgdjds-Iawxwbge-MSM (GLUCOSAMINE CHONDROITIN JOINT PO) Do Not take [...] Division of Hospital Medicine documented in this [facility]04-15-2022 Miscellaneous Notes* Addendum Note - ABDIAZIZ Bai - 10/03/2021 12:30 PM EDT Addended by: LIZANDRO REYES on: 10/07/2021 02:17 PM Modules accepted: Orders documented in this [facility]04-15-2022 Note* Addendum Note - ABDIAZIZ Bai - 10/03/2021 12:30 PM EDTAddended by: LIZANDRO REYES on: 10/07/2021 02:17 PM Modules accepted: Orders [facility]04-01-2022 History of Present illness Narrative* Al Winter, - 09/19/2021 11:20 AM EDT HPI: The patient is a 45 yo [...] the month prior to ED presentation 04/10/2016. USat that time showed extensive left femoral vein DVT extending into distal veins. Was started on Xarelto at that time he was having Right sided chest pain. He was told in ED that if "pain moved" come back. By the next day pain was substernal and was having pain down left arm. Presented to ED 04/11/20 16 and underwent CTA: FINDINGS: There is a large left main pulmonary arm of the embolism extending to the inferior basilar segmentsand superior apical segments. There is partial thrombus within the right inferior basilar segment as seen on series 2 image 138. There is a linear hypodensity extending across the left and right pulmonary artery consistent with linear partial thrombus. Normal enhancement of the bilateral peripheralpulmonary arteries. There is no demonstrated pulmonary embolism. [...] that was unremarkable. Please see results in [facility] electronic record 06/21/2016. However the CT scan was also notable for an enlarged lymph node at the origin of the left pulmonaryartery measuring 2.7 cm x 1.5 x 2.5 [...] Etiology not determined. He was evaluated at [facility] and subsequently [facility]. Evidently cardiac catheterization [...] necessary. Al Winter DO [facility] Miscellaneous Notes* Telephone Encounter - Erin Mercer - 09/14/2021 2:44 PM EDT I called and spoke to patient and scheduled him for an est complex appointment for Wednesday09/19/21 @ 11:20am, he confirmed this date and time Erin Mercer * Telephone Encounter - Al Winter DO - 09/13/2021 2:15 PM EDT I'll need to see him for OV for surgical clearance. Al Winter DO * Telephone Encounter - Rakel Cox Pss - 09/12/2021 1:15 PM EDT Patient is having shoulder surgery and has been advised to contact Dr. Winter and ask for instructions on how he is to take prescribed blood thinner. [facility] History of Present illness Narrative* Osmani Manzanares MD - 09/12/2021 11:15 AM EDT Chief Complaint Patient presents with Left Shoulder - Pain 45 y.o RHD male c/o left shoulder pain. XOA. MRI in chart. States that he had a fall on 08/01/21 andlanded onto his elbow which forced his shoulder [...] shoulder pain. 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 The pain is located over globally. The pain does not radiate. Patient does have night pain. The pain is better with rest. The pain is worse with any movement with weight in the arm. Overall, the painis constant. Mechanical symptoms are present. There is not a sense of instability. The patient doesnot have neurovascular complaints. Treatment to date: rest, ice and OTC analgesics: not very effective. Patient has not had prior shoulder surgery. He has a complex medical hx of DVT/PE on lovenox and is seen by a [facility] business case analyst andhx of CHF and he is seen here [...] There is pain with Neer impingement testing. Clinton's test is positive. Speed's sign is negative. [...] today. The diagnosis and treatment options were discussedwith him in detail today. 6 weeks out from injury I reviewed everything with the patient and given his active lifestyle, history of symptoms interfering with activities of daily living as well as night pain, physical exam and radiographic findings consistent with an acute traumatic rotator cuff tear, we discussed the options of further nonsurgicalmanagement versus proceeding with left shoulder arthroscopy. I [...] damage, bleeding, postoperative stiffness and the chance forrotator cuff retear, chance for deformity and cramping [...] improving his glucose control. 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)- Primary [facility] Preoperative examination- Primary Preoperative examination, unspecified Chronic systolic heart failure Type 2 diabetes mellitus with hyperglycemia, with long-term current use of insulin Chronic right shoulder pain Pain in joint, shoulder region Rotator cuff tear Rotator cuff (capsule) sprain [facility]* Diagnosis S/P shoulder surgery- Primary Other postprocedural status Preoperative examination Preoperative examination, unspecified [facility] Diagnosis S/P rotator cuff repair- Primary Other postprocedural status [facility]* Diagnosis S/P rotator cuff repair- Primary Other postprocedural status [facility] Diagnosis S/P rotator cuff repair- Primary Other postprocedural status [facility]* Diagnosis Dilated cardiomyopathy- Primary Other primary cardiomyopathies [facility]* Diagnosis S/P rotator cuff repair- Primary Other postprocedural status [facility]* Diagnosis Onset Date Resolution Status Abdominal pain acute Diarrhea acute Rectal bleeding acute [facility] Work Phone: Evaluation note* Diagnosis Onset Date Resolution Status Abdominal pain acute Diarrhea acute Rectal bleeding acute Louis's esophagus acute Gastritis, bile acid reflux acute Liver fibrosis acute Terminal ileitis acute [facility] Work Phone: Evaluation note* Diagnosis Dilated cardiomyopathy- Primary Other primary cardiomyopathies [facility] Diagnosis Onset Date Resolution Status Louis's esophagus acute Gastritis, bile acid reflux acute Liver fibrosis acute Terminal ileitis acute [facility] Work Phone: Evaluation note* Diagnosis 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- Primary Other chronic nonalcoholic liver disease [facility] Diagnosis WILSON (nonalcoholic steatohepatitis)- Primary Other chronic nonalcoholic liver disease [facility]* Diagnosis Dilated cardiomyopathy- Primary Other primary cardiomyopathies [facility] Diagnosis Dilated cardiomyopathy Other primary cardiomyopathies [facility]* Diagnosis Chronic systolic heart failure- Primary [facility]* Diagnosis Family history of Marfan syndrome- Primary Dilated cardiomyopathy (HCC) Other primary cardiomyopathies [facility] Diagnosis Shortness of breath- Primary Shortness of breath [facility] Diagnosis Chronic systolic heart failure- Primary Type 2 diabetes mellitus with hyperglycemia, with long-term current use of insulin [facility] Diagnosis Shortness of breath [facility] Author Yung Tate [facility] July 08, 2022 7:28am Note Date/Time July 08, 2022 7 :28am [facility] Medical Records Department [address] [place] [address] History & Physical Exam 07/08/22 0727 MR#: [id number] Acct: [id number] Name: KATRINA MELVIN Rep #:[id number] : 1975 46 From: Yung Tate DO PCP: Dr. Jeniffer White, Status:[facility] Location: [place] [address] History and Physical Date of Admission: 07/08/22 KATRINA MELVIN, is a 46 M who presents to the office today for rectal bleeding. Symptoms began in 2018. Worse this year, clots, dark blood. Was bleeding throughhis shorts. Cramps, urgency. Stools are always soft. Can have days when feels constipation, thinks due to Trulicity. Often has tenesmus. Can have bright red blood with wiping which seems like hemorrhoids. Other times he passes large darkred blood clots w/o BM, no tarry or black stools. Soft stool with urgency improved temporarily when he was taken off metformin. Can have cramps that startduring BM, then stool becomes liquid. Can be multiple BMs per day. Bowels do wake him in the night. Sometimes has BM one hr after eating but not typically. Some nausea when he takes Trulicity, no vomiting. No dysphagia. No heartburn, rare acid reflux. He had regular BM at 0700 daily until his accident which occurred in 2015. 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 Sees heme/onc Dr Winter Seecelestino pulm Dr Allen Sees cardiology at [facility] for heart failure 2018 gastric emptying study was normal 2019 CT/Abdomen/Pelvis WITH Contrast IMPRESSION: 1. No acute intra-abdominal or pelvic disease. 2. Mild gastric distention with food and fluid residua. Correlate clinically. Hyperdense material most likely representing partial ingestion of oral contrast or hyperdense liquid. 3. Hepatosplenomegaly, unchanged. ROS Const Constitutional: Positive for weakness; No fatigue, fever(s), frequent falls, headache(s) or weight change ENT ENT: No headache(s) or difficulty swallowing Cardio Cardiology: No leg pain with exertion Gastro GI: Positive for abdominal pain, bloating, constipation, cramping, diarrhea and Blood in stool; No change in bowel habits, heartburn, difficulty swallowing, Vomiting blood/hematemesis, nausea/dyspepsia or vomiting Musc Musculoskeletal: Positive for joint pain, joint swelling, muscle cramps, numbness and tingling; No abnormal gait, back pain, muscle weakness, stiffness, Arthritis, sciatica, leg pain at night or leg pain with exertion Skin Skin: No dry skin, lesions, itchy eyes or rash Neuro Neurology: Positive for weakness, numbness and tingling; No abnormal gait, dizziness, frequent falls, headache(s), tremor(s), Increased tone in limbs, paralysis or seizures Psych Psychiatric: No anxiety, No depression, No paranoia, No Behavioral Problems, No Compulsive Behavior, No hyperactivity, No inattentiveness, No obsessions/compulsions, No Temper Tantrums and No suicidal ideation Endo Endocrine: No fatigue or weight change Aller/Imm Allergy/Immunologic: No itchy eyes Anuj/Lymp Hematologic/Lymphatic: No easy bleeding or easy bruising Exam Const General: cooperative and comfortable Nutritional Appearance: overweight Orientation: alert, awake and oriented x3 Eyes Sclera: sclerae normal Resp Effort & Inspection: normal respiratory effort Quality Reporting Tobacco Screening ([facility] 138) Smoking Status: Former smoker Assessment and Plan Assessment and Plan (1) Rectal bleeding: ?Status:?Acute ?Plan: 46 yr old male with rectal bleeding, diarrhea Case discussed with Dr Tate DDx included diabetic diarrhea, neuropathy, EPI, fatty pancreas CT abd pel EGD and colonoscopy, hold PM and AM doses enoxaparin, cc Dr Winter Stool tests Labs f/u after endoscopies (2) Diarrhea: ?Status:?Acute ?Plan: as above (3) Abdominal pain: ?Status:?Acute ?Plan: as above ? ? ? Orders: Orders Comprehensive Metabolic Profil 05/04/22 K62.5 - Hemorrhage of anus and rectum, R19.7 - Diarrhea, unspecified ? CRP 05/04/22 K62.5 - Hemorrhage of anus and rectum, R19.7 - Diarrhea, unspecified ? LDH 05/04/22 K62.5 - Hemorrhage of anus and rectum, R19.7 - Diarrhea, unspecified ? CBC W/Diff, Automated 05/04/22 K62.5 - Hemorrhage of anus and rectum, R19.7 - Diarrhea, unspecified ? Erythrocyte Sed Rate 05/04/22 K62.5 - Hemorrhage of anus and rectum, R19.7 - Diarrhea, unspecified ? JO Comprehensive Panel 05/04/22 K62.5 - Hemorrhage of anus and rectum, R19.7 - Diarrhea, unspecified ? Calprotectin, Stool 05/04/22 K62.5 - Hemorrhage of anus and rectum, R19.7 - Diarrhea, unspecified ? Stool Lactoferrin/WBC 05/04/22 K62.5 - Hemorrhage of anus and rectum, R19.7 - Diarrhea, unspecified ? ANCA 05/04/22 K62.5 - Hemorrhage of anus and rectum, R19.7 - Diarrhea, unspecified ? Celiac Disease Profile 05/04/22 K62.5 - Hemorrhage of anus and rectum, R19.7 - Diarrhea, unspecified ? Immunoglobulins G/A/M/E 05/04/22 K62.5 - Hemorrhage of anus and rectum, R19.7 - Diarrhea, unspecified ? IVANNA + Protein Elect, Serum 05/04/22 K62.5 - Hemorrhage of anus and rectum, R19.7 - Diarrhea, unspecified ? Miscellaneous Lab Procedure 05/04/22 K62.5 - Hemorrhage of anus and rectum, R19.7 - Diarrhea, unspecified ? Ova and Parasites 8623 05/04/22 K62.5 - Hemorrhage of anus and rectum, R19.7 - Diarrhea, unspecified ? CDIFF (PCR) 05/04/22 K62.5 - Hemorrhage of anus and rectum, R19.7 - Diarrhea, unspecified ? ENTERIC PATHOGEN PANEL STOOL 05/04/22 K58.9 - Irritable bowel syndrom e without diarrhea, K62.5 - Hemorrhage of anus and rectum, R19.7 - Diarrhea, unspecified ? Abdomen/Pelvis WITH Contrast 05/04/22 K62.5 - Hemorrhage of anus and rectum, R10.9 - Unspecified abdominal pain, R19.7 - Diarrhea, unspecified ? Fecal Fat, Qualitative 05/04/22 R19.7 - Diarrhea, unspecified ? Pancreatic Elastase, Fecal 05/04/22 R19.7 - Diarrhea, unspecified ? Colonoscopy 07/08/22 K62.5 - Hemorrhage of anus and rectum, R10.9 - Unspecified abdominal pain, R19.7 - Diarrhea, unspecified ? EGD 07/08/22 K62.5 - Hemorrhage of anus and rectum, R10.9 - Unspecified abdominal pain, R19.7 - Diarrhea, unspecified ? Medications: Discontinued prednisone ?? Tapering Dose ?? 60mg x 3 days ?? 40mg x 3 days ?? 20mg x 3 days ?? Discontinued Reason:? Pt not known to practice I have examined the patient and the H&P has been reviewed. There are no clinicalchanges since date of exam. 07/08/22727 <Electronically signed by Yung Tate DO> Cosigner Signature (if applicable): CC: Dr. Jeniffer White, DO; Yung Tate, DO~ Signed [facility] Work Phone: Hospital Discharge instructions Additional Instructions Your ultrasound here did not show any evidence of blood clots it did show a collection of blood in your calf region. Call your physician that manages your Lovenox to discuss with them if they think you should hold your Lovenox for a short period of time or not. Return with worsening symptoms or other concerns as discussed here. If you are developing worsening swelling, numbness in your leg, more pain and increasing firmness you need to return immediatelyW[facility] Work Phone: Hospital Discharge instructions Additional Instructions Return back to the emergency department if symptoms change or worsen. Follow-up with orthopedic surgery as well as PCP. Ambulation as tolerated.[facility] Work Phone: Reason for referral (narrative)No reason for referral information availableWOur Lady of Mercy [facility] Work Phone: Reason for visit Narrative* Auth/Cert Specialty Diagnoses / Procedures Referred By Nhan t Referred To Contact Diagnoses Rotator cuff tear Rotator cuff tear [M75.100] Procedures HI SHLDR ARTHROSCOP,SURG,W/ROTAT CUFF REPR HI SHOULDER SCOPE BONE SHAVING HI REPAIR BICEPS LONG TENDON ARTHROSCOPY SHOULDER W/ ROTATOR CUFF REPAIR ARTHROSCOPY SHOULDER W/ SUBACROMIAL DECOMPRESSION/ACROMIOPLASTY ADD-ON PX TENODESIS BICEPS LONG TENDON Referral ID Status Reason Start Date Expiration Date Visits Re quested Visits Authorized [id number] 1 1 [facility] N[facility]* Radiology (Routine) - Closed Specialty Diagnoses / Procedures Referred By Nhan t Referred To Contact Diagnoses Shortness of breath Procedures ECHOCARDIOGRAM HI ECHO TTHRC R-T 2D W/WOM-MODE COMPL SPEC&COLR D Anshul Hernandez MD [address] [place] [address] Phone: tel: fax: Referral ID Status Reason Start Date Expiration Date Visits Re quested Visits Authorized [id number] Closed 02/28/2025 03/25/2026 1 1 [facility] Reason for Referral Specialty Diagnoses / Procedures Referred By Nhan t Referred To Contact Diagnoses Left shoulder pain, unspecified chronicity Procedures XR SHOULDER LEFT MIN 2 VIEWS Osmani Manzanares MD [address] [place] [address] Referral ID Status Reason Start Date Expiration Date V isits Requested Visits Authorized [id number] Pending Review 09/11/2021 10/06/2022 1 1 Specialty Diagnoses / Procedures Referred By Nhan t Referred To Contact Diagnoses Preoperative examination Procedures ECG Lizandro Reyes, [facility] 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 [address] Referral ID Status Reason Start Date Expiration Date V isits Requested Visits Authorized [id number] New Request 10/03/2021 10/28/2022 1 1 Specialty Diagnoses / Procedures Referred By Contact Referred To Contact [facility] Medicine and Rehabilitation Diagnoses S/P rotator cuff repair Burt Andrea PA-C [address] [place] [address] Referral ID Status Reason Start Date Expiration Date V isits Requested Visits Authorized [id number] New Request 10/27/2021 11/21/2022 1 1 Scheduling Instructions [facility] at [address] Room: [address] [address] [phone] FAX Abe [facility] [place] [address] [facility] [address] [place] [address] FAX [facility] [address] [place], [place] [id number] FAX [facility] [place] [address] [facility] [address] [place], [place] [address] FAX [facility] [place] [address] [facility] [place] [address] FAX [facility] [place] [address] [facility] [place], [place] [address] FAX [facility] [address] [facility] [address] [place] [address] FAX [facility] [place] [address] [facility] [place] [address] FAX [facility] [address] [place] [address] FAX [facility] [address] [place], [place] [id number] FAX Specialty Diagnoses / Procedures Referred By Contac t Referred To Contact Nutrition and Dietetics Diagnoses 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 Reuben Boyce MD [address] [place] [address] [place] [address] Referral ID Status Reason Start Date Expiration Date V isits Requested Visits Authorized [id number] New Request 10/23/2022 11/17/2023 1 1 Specialty Diagnoses / Procedures Referred By Contnorth t Referred To Contact Diagnoses Dilated cardiomyopathy Procedures ECHOCARDIOGRAM HI ECHO TTHRC R-T 2D W/WOM-MODE COMPL SPEC&COLR D Anshul Hernandez MD [address] [place] [address] Referral ID Status Reason Start Date Expiration Date Visits Re quested Visits Authorized [id number] Closed 02/02/2024 02/26/2025 1 1 Advance Directives No Advanced Directives Records FoundLatest Code Status on File Code Status Date Activated Date Inactivated Comments Full Code 06/29/2019 12:01 PM Advance Directive Response Recorded Date/ Time Advance Directives No February 8:06am Living Will No August 01 022 10:44am Power of Tour Driver No August 01, 2021 10:44am Latest Code Status on File Code Status Date Activated Date Inactivated Comments Full Code 06/29/2019 12:01 PM Latest Code Status on File Code Status Date Activated Date Inactivated Comments Full Code 06/29/2019 12:01 PM Advance Directive Response Recorded Date/ Time Advance Directives No April 4:20pm Living Will No May 04, 2 022 4:20pm Power of Tour Driver No May 04, 2022 4:20pm Advance Directive Response Recorded Date/ Time Advance Directives No April 4:20pm Living Will No July 06 8:52am Power of Tour Driver No July 06, 2022 8:52am Advance Directive Response Recorded Date/ Time Advance Directives No July 10:30am Living Will No July 31, 2 023 10:30am Power of Tour Driver No July 31, 2022 10:30am Advance Directive Response Recorded Date/ Time Advance Directives No July 11:30am Living Will No July 31, 2 023 11:30am Power of Tour Driver No July 31, 2022 11:30am Latest Code Status on File Code Status Date Activated Date Inactivated Comments Full Code 06/29/2019 12:01 PM Advance Directive Response Recorded Date/ Time Advance Directives No July 10:30am Living Will No December 21, 2022 3 :36pm Power of Tour Driver No December 21, 2022 3:36pm Advance Directive Response Recorded Date/ Time Advance Directives No July 10:30am Living Will No April 30, 2 023 5:50pm Power of Tour Driver No April 30, 2023 5:50pm Date Activated Date Inactivated Comments 06/29/2019 12:01 PM Date Activated Date Inactivated Comments 06/29/2019 12:01 PM Advance Directive Response Recorded Date/ Time Living Will No April 30, 2 023 6:50pm Do you have a Healthcare Power of Tour Driver? No April 30, 2023 6:50pm Advance Directives No July 11:30am Advance Directive Response Recorded Date/ Time Living Will No April 30, 2 023 6:50pm Do you have a Healthcare Power of Tour Driver? No April 30, 2023 6:50pm Do you have a Healthcare Power of Tour Driver? No November 16, 2024 3:20pm Advance Directives No July 11:30am Advance Directive Response Recorded Date/ Time Living Will No April 30, 2 023 6:50pm Do you have a Healthcare Power of Tour Driver? No April 30, 2023 6:50pm Do you have a Healthcare Power of Tour Driver? No November 18, 2024 10:09am Do you have a Healthcare Power of Tour Driver? No November 16, 2024 3:20pm Advance Directives No February 10th , 2023 11:30am Chief Complaint and Reason for Visit Chief Complaint fall, left arm/shoul keith pain LEFT SHOULDER SPRAIN Chief Complaint LT SHOULDER/RX HERE Chief Complaint Consult LT SHOULDER/RX HERE FLU VACCINE RECTAL BLEED, DIARRHEA, ABD PAIN, *ORAL & IV* Reason for Visit Abdominal pain Diarrhea Rectal bleeding Chief Complaint Consult FLU VACCINE RECTAL BLEED, DIARRHEA, ABD PAIN, *ORAL & IV* LT SHOULDER/RX HERE Reason for Visit Abdominal pain Diarrhea Rectal bleeding Chief Complaint Consult FLU VACCINE RECTAL BLEED, DIARRHEA, ABD PAIN, *ORAL & IV* LT SHOULDER/RX HERE FATTY LIVER ON CT LT SHOULDER/RX HERE Reason for Visit Abdominal pain Diarrhea Rectal bleeding Chief Complaint Consult FLU VACCINE RECTAL BLEED, DIARRHEA, ABD PAIN, *ORAL & IV* LT SHOULDER/RX HERE FATTY LIVER ON CT LT SHOULDER/RX HERE EORDER 2 WK FU Reason for Visit Abdominal pain Diarrhea Rectal bleeding Louis's esophagus Gastritis, bile acid reflux Liver fibrosis Terminal ileitis Chief Complaint Consult FLU VACCINE RECTAL BLEED, DIARRHEA, ABD PAIN, *ORAL & IV* LT SHOULDER/RX HERE FATTY LIVER ON CT LT SHOULDER/RX HERE EORDER 2 WK FU LIVER FIBROSIS Cap endo Reason for Visit Abdominal pain Diarrhea Rectal bleeding Louis's esophagus Gastritis, bile acid reflux Liver fibrosis Terminal ileitis Chief Complaint LT SHOULDER/RX HERE EORDER 2 WK FU LIVER FIBROSIS Cap endo Reason for Visit Louis's esophagus Gastritis, bile acid reflux Liver fibrosis Terminal ileitis Chief Complaint EORDER 2 WK FU LIVER FIBROSIS Cap endo Reason for Visit Louis's esophagus Gastritis, bile acid reflux Liver fibrosis Terminal ileitis Chief Complaint TOE Chief Complaint TOE RIGHT FOOT PAIN Chief Complaint TOE RIGHT FOOT PAIN S/O- 2 DRS/ 2 ORDERS Chief Complaint Admit Date 2 DRS/ 2 ORDERS/ STANDING ORDER October 27, 2024 7:25am Chief Complaint Admit Date 2 DRS/ 2 ORDERS/ STANDING ORDER October 27, 2024 7:25am LOWER EXT November 16, 2024 2:43p m Chief Complaint Admit Date 2 DRS/ 2 ORDERS/ STANDING ORDER October 27, 2024 7:25am LOWER EXT November 16, 2024 2:43p m rt leg November 18, 2024 9:48a m Family History No Family History Records Found Relationship Condition Age at Onset Recorded Date/T priya Not Specified Malignant neoplasm of skin Unknown Malignant neoplasm of cervix Unknown Myocardial infarction Unknown father Hypertension Unknown Diabetes mellitus Unknown mother Hypertension Unknown Relationship Condition Age at Onset Recorded Date/T priya father Hypertension Unknown Diabetes mellitus Unknown mother Hypertension Unknown Summary Purpose Additional Source Comments Reason for Visit (unrecogniz ed section and content) Reason Comments Pain 45 y.o RHD male c/o left shoulder pain. XOA. MRI in chart. States that he had a fall on 08/01/21 and landed onto his elbow which forced his shoulder upward. Pains present all over his shoulder joint. Has limited function. No prior Sx, Pt or CSI. Specialty Diagnoses / Procedures Referred By Nhan mix Referred To Contact Diagnoses Left shoulder pain, unspecified chronicity Procedures XR SHOULDER LEFT MIN 2 VIEWS Osmani Manzanares MD [address] [place] [address] Referral ID Status Reason Start Date Expiration Date V isits Requested Visits Authorized [id number] Pending Review 09/11/2021 10/06/2022 1 1 Reason Comments Patient Question Reason Comments Established Patient Specialty Diagnoses / Procedures Referred By Nhan mix Referred To Contact Hematology/Oncology / HEMATOLOGY/ONCOLOGY Diagnoses Pre-operative clearance OV, surgery clearance see phone note 09/12* Procedures OFFICE/OUTPATIENT ESTABLISHED HIGH MDM 40-54 MIN EST COMPLEX Al Winter, DO [address] [place] [address] Al Winter, DO [address] [place] [address] Referral ID Status Reason Start Date Expiration Date Visits Re quested Visits Authorized [id number] Closed 09/19/2021 09/28/2022 1 1 Reason Comments [...] anterior shoulder. Says it feels like it "wants to pop out". Reason Comments Post Op Visit 5w 2d [...] Specialty Diagnoses / Procedures Referred By Nhan t Referred To Contact Gastroenterology Diagnoses Hepatic fibrosis Jeniffer White, [address] [facility] [place] [address] [place] [address] [facility] [address] [place] [address] Referral ID Status Reason Start Date Expiration Date V isits Requested Visits Authorized [id number] Pending Review 09/08/2022 10/03/2023 1 1 Reason Comments Follow-up Patient states here for follow up. Patient states not having as many symptoms as last visit Specialty Diagnoses / Procedures Referred By Contac t Referred To Contact Diagnoses Dilated cardiomyopathy Procedures ECHOCARDIOGRAM HI ECHO TTHRC R-T 2D W/WOM-MODE COMPL SPEC&COLR D Anshul Hernandez MD [address] [place] [address] Referral ID Status Reason Start Date Expiration Date Visits Re quested Visits Authorized [id number] Closed 02/02/2024 02/26/2025 1 1 Reason Comments Consult Reason Comments Results positive for Marfan syndrome Reason Onset Date Comments Cardiac Clearance 02/28/2025 Reason Comments Cardiac Clearance Patient is scheduled to have left knee surgery. Patient needs cardiac clearance Care Teams (unrecognized sec tion and content) Enamel Finisher Relationship Specialty Start Date End Date Jeniffer White DO [address] [place] [address] [place] [address] PCP - General Family Medicine 04/04/18 Enamel Finisher Relationship Specialty Start Date End Date Jeniffer White DO [address] [place] [address] [place] [address] PCP - General Family Medicine 04/04/18 Enamel Finisher Relationship Specialty Start Date End Date Fredy Enamorado MD PCP - General 03/02/08 Enamel Finisher Relationship Specialty Start Date End Date Fredy Enamorado MD PCP - General 03/02/08 Enamel Finisher Relationship Specialty Start Date End Date Jeniffer White DO [address] [place] [address] [place] [address] PCP - General Family Medicine 04/04/18 Enamel Finisher Relationship Specialty Start Date End Date Cindy, Jeniffer A, DO [address] [place] [address] [place] [phone] PCP - General Family Medicine 04/04/18 Enamel Finisher Relationship Specialty Start Date End Date Jeniffer White DO [address] [place] [address] [place] [phone] PCP - General Family Medicine 04/04/18 Enamel Finisher Relationship Specialty Start Date End Date Jeniffer White, DO [address] [place] [address] [place] [phone] PCP - General Family Medicine 04/04/18 Enamel Finisher Relationship Specialty Start Date End Date Jeniffer White DO [address] [place] [address] [place] [address] PCP - General Family Medicine 04/04/18 Enamel Finisher Relationship Specialty Start Date End Date Jeniffer White DO [address] [place] [address] [place] [phone] PCP - General Family Medicine 04/04/18 Enamel Finisher Relationship Specialty Start Date End Date Fredy Enamorado MD PCP - General 03/02/08 Enamel Finisher Relationship Specialty Start Date End Date Jeniffer White, [address] [place] [address] [place] [phone] PCP - General Family Medicine 04/04/18 Enamel Finisher Relationship Specialty Start Date End Date Jeniffer White DO [address] [place] [address] [place] [phone] PCP - General Family Medicine 04/04/18 Team Status: Active Member Role Status Dates Dr. Jeniffer White DO Family Provider Active Dr. Jeniffer White DO Primary Care Provider Active Team Status: Inactive Member Role Status Dates Dr. Jeniffer White DO Primary Care Provider, Referrin g Provider Active Ivy Frankel FORESTRY AID, FORESTRY AID-C Attending Provider Active Team Status: Inactive Member Role Status Dates Dr. Jeniffer White DO Primary Care Provider, Referrin g Provider Active Chandra Wilburn PA, PA Attending Provider Active Team Status: Active Member Role Status Dates Dr. Jeniffer White DO Primary Care Provider Active Dr. Yung Tate , DO Attending Provid er, Referring Provider, Other Provider Active Team Status: Inactive Member Role Status Dates Dr. Jeniffer White DO Primary Care Provider Active JETHRO MORALEZ Attending Provider, Referring Provider Ac VIVEK Foote Active Team Status: Inactive Member Role Status Dates Dr. Jeniffer White DO Primary Care Provider Active Ivy Frankel FORESTRY AID, FORESTRY AID-C Attending Provider, Referrin g Provider Active Team Status: Inactive Member Role Status Dates Dr. Jeniffer White DO Primary Care Provider Active Dr. Yung Tate , Attending Provider, Referring Provider Active Team Status: Active Member Role Status Dates Dr. Jeniffer White DO Primary Care Provider Active VIVEK MORALEZ Attending Provider, Referring Provider A ctive Team Status: Inactive Member Role Status Dates Dr. Jeniffer White DO Primary Care Provider, Referrin g Provider Active Dr. Yung Tate , Attending Provider Active Enamel Finisher Relationship Specialty Start Date End Date Jeniffer White DO [address] [place] [address] [place] [address] PCP - General Family Medicine 04/04/18 Team Status: Inactive Member Role Status Dates Dr. Jeniffer White DO Primary Care Prov ider, Attending Provider, Referring Provider Active Enamel Finisher Relationship Specialty Start Date End Date Jeniffer White DO [address] [place] [address] [place] [phone] PCP - General Family Medicine 04/04/18 Enamel Finisher Relationship Specialty Start Date End Date Jeniffer White DO [address] [place] [address] [place] [phone] PCP - General Family Medicine 04/04/18 Enamel Finisher Relationship Specialty Start Date End Date Jeniffer White DO [address] [place] [address] [place] [address] PCP - General Family Medicine 04/04/18 Team Status: Inactive Member Role Status Dates Dr. Jeniffer White DO Primary Care Provider Active REUBEN BOYCE Attending Provider, Referring Provid er Active Team Status: Inactive Member Role Status Dates Dr. Jeniffer White DO Primary Care Provider Active KATIE PATRICIA Attending Provider, Referring Provid er Active Team Status: Inactive Member Role Status Dates Dr. Jeniffer White DO Primary Care Provider Active Dr. Traci Aaron DO Attending Provider, Emergency P roseanne Active Team Status: Inactive Member Role Status Dates Dr. Jeniffer White DO Primary Care Provider Active Dr. Berta Gorman DPM Attending Provider Active Team Status: Inactive Member Role Status Dates Dr. Jeniffer White DO Primary Care Provider Active Dr. Berta Gorman DPM Attending Provider, Referri ng Provider Active Team Status: Inactive Member Role Status Dates Dr. Jeniffer White DO Primary Care Prov ider, Attending Provider, Referring Provider Active KATIE PATRICIA Other Provider Active Enamel Finisher Relationship Specialty Start Date End Date Jeniffer White DO [address] [place] [address] [place] [address] PCP - General Family Medicine 04/04/18 Enamel Finisher Relationship Specialty Start Date End Date Jeniffer White DO [address] [place] [address] [place] [address] PCP - General Family Medicine 04/04/18 Team Status: Active Member Role Status Dates Dr. Jeniffer Cindy , DO Primary Care Provider Active Team Status: Inactive Member Role Status Dates Dr. Jeniffer White DO Primary Care Provider Active Start: August 09, 2024 End: August 09, 2024 Dr. Jeniffer White DO Attending Provider Active Start: August 09, 2024 End: August 09, 2024 Dr. Jeniffer White DO Referring Provider Active Start: August 09, 2024 End: August 09, 2024 Team Status: Inactive Member Role Status Dates Dr. Jeniffer White DO Primary Care Provider Active Start: October 27, 2024 End: October 27, 2024 Dr. Jeniffer White DO Attending Provider Active Start: October 27, 2024 End: October 27, 2024 Dr. Jeniffer White DO Referring Provider Active Start: October 27, 2024 End: October 27, 2024 FARZANEH PATRICIAThea Other Provider Active Start: 2024 End: October 27, 2024 Team Status: Inactive Member Role Status Dates Dr. Jeniffer White DO Primary Care Provider Active Start: November 16, 2024 End: November 16, 2024 Dr. Tad Reeder , Referring Provider Active Start: November 16, 2024 End: November 16, 2024 Dr. Tad Reeder , DO Emergency Provider Active Start: November 16, 2024 End: November 16, 2024 Team Status: Inactive Member Role Status Dates Dr. Jeniffer White DO Primary Care Provider Active Start: November 18, 2024 End: November 18, 2024 Dr. Nicko Robbins , DO Emergency Provider Activ e Start: November 18, 2024 End: November 18, 2024 Enamel Finisher Relationship Specialty Start Date End Date Fredy Enamorado MD PCP - General 03/02/08 Enamel Finisher Relationship Specialty Start Date End Date Fredy Enamorado MD PCP - General 03/02/08 Enamel Finisher Relationship Specialty Start Date End Date Fredy Enamorado MD PCP - General 03/02/08 Enamel Finisher Relationship Specialty Start Date End Date Jeniffer White DO PCP - General Family Medicine 04/04/18 Enamel Finisher Relationship Specialty Start Date End Date Jeniffer White DO PCP - General Family Medicine 04/04/18 Enamel Finisher Relationship Specialty Start Date End Date Jeniffer White DO PCP - General Family Medicine 04/04/18 Source Comments (unrecognize d section and content) In the event this informatio n is protected by the Federal Confidentiality of Alcohol and Drug Abuse Patient Records regulations: The Federal rules restrict any use of the information to criminally investigate or prosecute any alcohol or drug abuse patient.[facility] CenterIn the event this information is protected by the Federal Confidentiality of Alcohol and Drug Abuse Patient Records regulations: The Federal rules restrict any use of the information to criminally investigate or prosecute any alcohol or drug abuse patient.[facility] Center[facility] the event this information is protected by the Federal Confidentiality of Alcohol and Drug Abuse Patient Records regulations: The Federal rules restrict any use of the information to criminally investigate or prosecute any alcohol or drug abuse patient.[facility] Center[facility] the event this information is protected by the Federal Confidentiality of Alcohol and Drug Abuse Patient Records regulations: The Federal rules restrict any use of the information to criminally investigate or prosecute any alcohol or drug abuse patient.[facility] CenterIn the event this information is protected by the Federal Confidentiality of Alcohol and Drug Abuse Patient Records regulations: The Federal rules restrict any use of the information to criminally investigate or prosecute any alcohol or drug abuse patient.[facility] Center[facility] the event this information is protected by the Federal Confidentiality of Alcohol and Drug Abuse Patient Records regulations: The Federal rules restrict any use of the information to criminally investigate or prosecute any alcohol or drug abuse patient.[facility] Goals (unrecognized section and content) Goals may be documented in a n alternate sectionGoals may be documented in an alternate sectionGoals may be documented in an alternate sectionGoals may be documented in an alternate sectionGoals may be documented in an alternate sectionGoals may be documented in an alternate sectionGoals may be documented in an alternate sectionGoals may be documented in an alternate sectionGoals may be documented in an alternate sectionGoals may be documented in an alternate sectionGoals may be documented in an alternate sectionGoals may be documented in an alternate section Scheduled Active and Recently Administ ered Medications (unrecognized section and content) Medication Order 10/13/2021 10/14/2021 10/15/2021 ceFAZolin (ANCEF) 2 g in dextrose 100 mL premix IVPB 2 g, Intravenous, Administer over 30 Minutes, ONCE, 1 dose, On Wed10/15/21 at 0530, Give 30 min prior to incision, Pre-op/Pre-Proc 0530 (Canceled Entry - Provider: System Discharge - Comment: Automatically canceled at discontinue of medication order) insulin lispro (HumaLOG) injection 4 Units(Linked Group 1) 4 Units, Subcutaneous, 3 TIMES DAILY BEFORE MEALS, First dose on Wed10/15/21 at 0745, Until Discontinued, Give before meal or with first bite of food. Kwikpen: Prime pen before each injection; refer to Pen Priming and Care Handout for further details. Warning! Confirm patient. Insulin pen is for labeled individual patient use ONLY., Pre-op/Pre-Proc 0650 (Given - Provid er: Monica Buckner RN)1100 (Canceled Entry - Provider: System Discharge - Comment: Automatically canceled at discontinue of medication order) insulin lispro (HumaLOG) injection 4 Units(Linked Group 2) 4 Units, Subcutaneous, 3 TIMES DAILY BEFORE MEALS, First dose on Wed10/15/21 at 1100, Until Discontinued, Give before meal or with first bite of food. Kwikpen: Prime pen before each injection; refer to Pen Priming and Care Handout for further details. Warning! Confirm patient. Insulin pen is for labeled individual patient use ONLY., Recovery 1011 (Given - Provid er: Cathy Coleman RN - Comment: BS 227 at 1000 in PACU) insulin lispro (HumaLOG) injection 6 Units(Linked Group 3) 6 Units, Subcutaneous, 3 TIMES DAILY BEFORE MEALS, First dose on Wed10/15/21 at 1130, Until Discontinued, Give before meal or with first bite of food. Kwikpen: Prime pen before each injection; refer to Pen Priming and Care Handout for further details. Warning! Confirm patient. Insulin pen is for labeled individual patient use ONLY., Recovery 1128 (Given - Provid er: Cathy Coleman RN) Continuous Medication Order 10/13/2021 10/14/2021 10/15/2021 lactated ringers IV solution Intravenous, at 100 mL/hr, CONTINUOUS, Starting on Wed10/15/21 at 0530, Until Wed10/15/21 at 1437, Pre-op/Pre-Proc 0540 ($$New Bag$$ - Provider: Monica Buckner RN) PRN Medication Order 10/13/2021 10/14/2021 10/15/2021 EPINEPHrine PF (ADRENALIN) 1 MG/ML injection (CANCELED) NEEDED, Starting on Wed10/15/21 at 0934, Until Wed10/15/21 at 0955, Intra-op/Intra-Proc 0934 (Given - Provid er: Osmani Manzanares MD - Comment: lactated ringer bag [...] at 0955 0933 (Given - Provid er: Osmani Manzanares MD - Comment: mixed with epi 1mg) Lactated Ringers SOLN (CANCELED) NEEDED, Starting on Wed10/15/21 at 0935, Until Wed10/15/21 at 0955 0935 (Given - Provid er: Osmani Manzanares MD - Comment: mixed with 1mg epi) Lactated Ringers SOLN (CANCELED) NEEDED, Starting on Wed10/15/21 at 0936, Until Wed10/15/21 at 0955 0936 (Given - Provid er: Osmani Manzanares MD - Comment: mixed with epi [...] glucose is greater than 200mg/dl, then notify section housekeeper. , Pre-op/Pre-Proc And BLOOD GLUCOSE (POC DEVICE) [...] glucose is greater than 200mg/dl, then notify section housekeeper. , Recovery And BLOOD GLUCOSE (POC DEVICE) [...] glucose is greater than 200mg/dl, then notify section housekeeper. , Recovery And BLOOD GLUCOSE (POC DEVICE) [...] total of 4mg in PACU .
Recovery (unrecognized sect ion and content) No Status Records FoundNo Status Records FoundNo Status Records FoundNo Status Records Found INFORMATION SOURCE (unrecogn ized section and content) DATE CREATED AUTHOR 11/21/2024 [facility] DATE CREATED AUTHOR AUTHOR'S ORGANIZ ATION 03/27/2025 [facility] DATE CREATED AUTHOR AUTHOR'S ORGANIZ ATION 03/30/2025 [facility] DATE CREATED AUTHOR AUTHOR'S ORGANIZ ATION 04/06/2025 [facility] FOR RECORDS PERTAINING TO PATIENTS WHO ARE [...] BE BASED ON THE PRIMARY CLINICAL RECORDS. [employer] [facility]. provides no warranty or guarantee of the accuracy or completeness of information in this document.
[2025-04-09] MEDS: Lactated Ringers 1,000 ML 15 ML IV (07:23)
--- NOTE | 2025-04-09 07:51 | PCM.PRE.AN2 ---
ASA Classification* ASA Classification ASA Classification: 2 Assessment & Plan Anesthesia* Anesthesia Assessment Anesthesia Assessment: Discussed sedation and/or anesthesia options, risks, benefits, and alternatives with patient/parents/legal guardian/POA. Questions invited. The patient/parents/legal guardian/POA seems to understand and agrees to proceed with anesthesia plan. Reviewed the physical assessment, medical history, allergy history and patient home medications list prior to surgery/procedure/anesthetic and documented any changes. Performed airway and anesthesia risk assessments. Anesthesia Type Anesthesia Type: General Anesthesia Focused Assessment* Temperature: 97.8 F Pulse Rate: 73 Blood Pressure: 114/75 Respiratory Rate: 16 Pulse Ox: 96 Airway Assessment Mouth opens: >3 cm Mallampati Score: II Labs Anesthesia Preop lab: CBC WBC, (4.4-11.0) 5.5 K/mm3 03/15/25, 07:26 RBC, (4.6-6.2) 5.00 M/mm3 03/15/25, 07:26 Hgb, (13.0-16.5) 15.4 g/dL 03/15/25, 07:26 Hct, (40-54) 45.3 % 03/15/25, 07:26 Plt Count, (150-450) 225 K/mm3 03/15/25, 07:26 CHEMISTRY Potassium, (3.3-5.1) 4.9 mmol/L 03/15/25, 07:26 Sodium, (133-145) 137 mmol/L 03/15/25, 07:26 Magnesium, (1.6-2.6) 2.3 mg/dL 05/26/18, 13:43 BUN, (4-19) 16 mg/dL 03/15/25, 07:26 Creatinine, (0.70-1.20) 0.77 mg/dL 03/15/25, 07:26 Glucose, (70-99) 152 mg/dL H 03/15/25, 07:26 POC Glucose, (74-106) 298 mg/dL H 07/08/22, 06:45 TSH, (0.300-4.200) 2.360 uIU/mL 10/27/24, 07:35 COAG PT, (11.7-14.9) 12.9 SECONDS 11/18/24, 11:24 Pre-Assessment Diagnosis/Proposed Procedure Planned Operative Procedure(s): (L) LEFT KNEE ARTHROSCOPY WITH PARTIAL MEDIAL MENISECTOMY Anesthesia History Anesthesia History - disability liaison officer: Anesthesia History - disability liaison officer Hx Hospitalization No 04/02/25 12:53 Any Problems With Anesthesia No 04/02/25 12:53 Cholinesterase deficiency No 04/02/25 12:53 You/Your Family Experience No 04/02/25 12:53 fever (hyperthermia) with Relationship Recent Exposure to Contagious No 04/09/25 07:08 Disease Does patient have nerve No 04/02/25 12:53 stimulator Patient instructed to have device shut off --Does patient have Pacemaker No 04/09/25 07:08 or ICD? When Was Last Pacemaker Check QUESTION #4 FULL TEXT: You/Your Family Experience fever (hyperthermia) with Anesthesia Last Oral Intake Last Oral intake: Last Oral Intake NPO since 22:00 04/09/25 07:08 Meds taken in AM with sips of water? Meds patient instructed to take am of surgery PONV PONV - disability liaison officer: PONV - disability liaison officer Female No 04/02/25 12:53 HX of Motion Sickness No 04/02/25 12:53 HX of N/V After Surgery No 04/02/25 12:53 Non-Smoker Yes 04/02/25 12:53 Duration of Surgery greater No 04/02/25 12:53 than 60 minutes Number of Risk Factors 1 04/02/25 12:53 PONV Score Low Risk 04/02/25 12:53 Height & Weight Height & Weight: Anesthesia: Height & Weight Height 6 ft 4 in 04/09/25 07:08 Weight: 130.635 kg 04/09/25 07:08 Body Mass Index (BMI) 35.0 04/09/25 07:08 Respiratory Assessment Respiratory Assessment - disability liaison officer: Respiratory Tract Infection Hx - disability liaison officer Hx Respiratory Tract Infection No 04/02/25 12:53 STOP Sleep Apnea STOP Sleep Apnea - disability liaison officer: STOP Sleep Apnea - disability liaison officer Hx Hypertension Yes 04/02/25 12:53 Hx Sleep Apnea Yes 04/02/25 12:53 CPAP Yes 04/02/25 12:53 BIPAP No 04/02/25 12:53 Do you snore loudly (louder No 04/02/25 12:53 than talking or can be heard Do you often feel tired/ No 04/02/25 12:53 fatigued/ sleepy during daytime? Has anyone observed you stop No 04/02/25 12:53 breathing during sleep? STOP Results Positive 04/02/25 12:53 QUESTION #5 FULL TEXT : Do you snore loudly (louder than talking or can be heard through closed doors)? Tobacco Use History Tobacco Use History - disability liaison officer: Tobacco Use History - disability liaison officer Tobacco Use Smoking Status Former smoker 04/02/25 12:53 Hx Tobacco Use No 04/02/25 12:53 Years Smoking Packs Smoked per Day Smoking Cessation Date was No - quit smoking greater 04/02/25 12:53 within the last 15 years than 15 years ago Hx Smoking Cessation Date 06/21/99 04/02/25 12:53 Hx Smoking Cessation No 04/02/25 12:53 Counseling Hematologic Medial History Hematologic Hx - disability liaison officer: Hematologic Medical Hx - lasting room supervisor Hx of Blood Transfusion No 04/02/25 12:53 Hx of Transfusion in last 3 No 04/02/25 12:53 Months Date of Last Transfusion (if within last 3 months) Ever experience any problems No 04/02/25 12:53 with transfusion(s)? Specify any problems Hx of Preganancy in last 3 N/A 04/02/25 12:53 Months Nurse Filling Out Transfusion NBUCHER 04/02/25 12:53 & Questions: Date: 04/02/25 04/02/25 12:53 Time: 12:54 04/02/25 12:53 Patient unable to answer at this time (ie. confused, unrespo /Reproduction History /Reproductive History - disability liaison officer: /Reproductive Hx- disability liaison officer Hx Now No 04/02/25 12:53 Gestational Age (in weeks): EDC: Hx Hx Para Hx Section SAB No 04/02/25 12:53 Active Medications Active Medications: Current Medications Generic Name Dose Route Start Last Admin Trade Name Freq PRN Reason Stop Dose Admin Cefazolin Sodium 3 gm/ Sodium 115 mls @ 200 mls/hr 04/09/25 08:30 Chloride IV 04/09/25 09:04 INTRAOP ONE Lactated Ringer's 1,000 mls @ 15 mls/hr 04/09/25 07:00 04/09/25 07:23 IV 15 mls/hr .Q48H MAXIM Administration PFSH Medical History Insulin dependent diabetes mellitus GERD (gastroesophageal reflux disease) Barretts esophagus Fatty liver Thyroid disease Arthritis DVT (deep venous thrombosis) Injury of back Injury of head and neck History of GI bleed Former smoker Shortness of breath on exertion Leg cramps History of edema History of echocardiogram History of stress test Cardiology follow-up encounter History of CHF (congestive heart failure) Rotator cuff arthropathy of left shoulder History of TIA (transient ischemic attack) Diabetes mellitus Hemorrhage of anus and rectum Idiopathic cardiomyopathy Thyroid nodule Essential (primary) hypertension 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 Type 2 diabetes mellitus Medial meniscus tear Diastolic dysfunction with heart failure DVT of leg (deep venous thrombosis) Contusion of left knee, initial encounter Other internal derangements of left knee Pain of left knee after injury Other tear of lateral meniscus, current injury, left knee, subsequent encounter Other tear of medial meniscus, current injury, left knee, subsequent encounter Pulmonary embolism (07/2016) Home Medications Medication Instructions Recorded Last Taken Type enoxaparin 150 mg/mL subcutaneous 135 mg subcut Q12@0600,1800 12/10/17 04/08/25 History syringe cholecalciferol (vitamin D3) 125 5,000 unit PO DAILY 04/24/18 11/18/24 History mcg (5,000 unit) capsule spironolactone 25 mg tablet 25 mg PO DAILY #90 tabs 09/08/18 11/18/24 Rx empagliflozin 10 mg tablet 10 mg PO DAILY 02/19/22 04/05/25 History (Jardiance) sacubitril 97 mg-valsartan 103 mg 1 tab PO BID 07/06/22 04/09/25 History tablet (Entresto) furosemide 40 mg tablet (Lasix) 40 mg PO TID 04/30/23 11/18/24 History methimazole 5 mg tablet 5 mg PO DAILY 10/24/24 11/18/24 History potassium chloride 20 mEq 20 meq PO BID 10/24/24 11/18/24 History tablet,extended release carvedilol 25 mg tablet 50 mg PO BID 11/18/24 04/09/25 05:30 History insulin glargine 100 unit/mL (3 20 unit subcut DAILY 11/18/24 04/08/25 History mL) subcutaneous pen (Lantus Solostar U-100 Insulin) pantoprazole 40 mg tablet,delayed 40 mg PO Q12H 11/18/24 11/18/24 History release tirzepatide 10 mg/0.5 mL 10 mg subcut GUPTA 04/02/25 04/01/25 History subcutaneous pen injector (Mounjaro) Allergy/AdvReac Type Severity Reaction Status Date / Time codeine Allergy Other Verified 04/09/25 07:07 metformin Allergy Abd Verified 04/09/25 07:07 cramps/diarrhea perflutren (From Yemeksepeti) AdvReac Pain in Verified 04/09/25 07:07 joints Family History Father Hypertension Diabetes Mother Hypertension Diabetes Other Cervical cancer Myocardial infarction Skin cancer Surgical History History of cardiac catheterization History of left heart catheterization (03/04/18) torn cartilage behind knee Partially torn MCL Torn PCL Torn meniscus Social History Smoking Status: Former smoker how long ago did patient quit smokin, 2pks/day second hand exposure: Yes alcohol intake: current alcohol intake frequency: a few times a month substance use type: does not use Review of Systems (Anesthesia) ROS Narrative System reviewed and no additional complaints, except as documented.
[2025-04-09] MEDS: Cefazolin 1 GM/5 ML Vial 3 GM IV (08:30)
[2025-04-09] MEDS: Lactated Ringers 1,000 ML 1000 ML IV (08:30)
[2025-04-09] MEDS: Midazolam 2 MG/2 ML Syringe IV (08:33)
[2025-04-09] MEDS: Lidocaine 1% (5 ml sdv) 5 ML Vial IV (08:38)
[2025-04-09] MEDS: Bupiv/Epi 0.25% 30 ML Vial (09:02)
[2025-04-09] MEDS: Epinephrine (1 mg/ml) 1 MG/ML VIAL (09:02)
[2025-04-09] MEDS: fentaNYL 100 MCG/2 ML Ampul 200 MCG IV (09:14)
--- NOTE | 2025-04-09 09:19 | PCM.POST.ANE ---
Anesthesia: Postop Eval I Current Vital Signs Temperature: 97.3 F Pulse Rate: 18 Blood Pressure: 128/73 Respiratory Rate: 18 Pulse Ox: 98 Assessment Airway patent: Yes Spontaneous unlabored respirations: Yes nausea: No Vomiting: No Anesthesia Complication: No Fluid Hydration Crystalloid volume administer (ml): 1,000 Total IV fluid infused: 1,000 Progress Note Anesthesia document: Postop Eval 1 completed: Yes
--- NOTE | 2025-04-09 10:05 | OP.PCM_ITS ---
Operative Report (Standard) Operative Information Date of Procedure: 04/09/25 Pre-Operative Diagnosis: Left knee medial meniscus tear Post-Operative Diagnosis: Left knee medial meniscus tear Surgery/Procedure Performed: Left knee arthroscopic partial medial meniscectomy documentum consultant: Yes Director Of Software Engineering: Pattie Gutierrez Tasks completed by human resources assistant: Opening & closing and Retracting Additional data entry assistant?: No Type of Anesthesia: General RN Documented Start/Stop Times: Operation Date: 04/09/25 08:30 Case Time Into Pre-Op 04/09/25 06:46 Out of Pre-Op 04/09/25 08:26 Anesthesia Start 04/09/25 08:30 Into Room 04/09/25 08:30 Procedure Start 04/09/25 08:50 Procedure End 04/09/25 09:09 Anesthesia End 04/09/25 09:15 Out of Room 04/09/25 09:15 Into Recovery 04/09/25 09:17 Into Phase II Recovery 04/09/25 09:56 Out of Recovery 04/09/25 09:56 Procedure Start Time: 08:50 Procedure Stop Time: 09:09 Select all DRAINS/GRAFTS/IMPLANTS that apply: None Estimated Blood Loss: 10 cc Specimen collected: No Description of surgery: Patient was identified in the preoperative holding area by name, medical record number, date of . The operative extremity was marked. All questions were answered to the patient's satisfaction. At time of his procedure, patient was brought to the operative suite and positioned supine a center operating table. General anesthesia was induced and LMA placed. All bony prominences were well- padded. No tourniquet was applied. Arthroscopic leg myrick was placed around the patient's left thigh. Well-leg myrick was placed on the patient's right thigh the foot the bed was dropped 90 degrees. Left lower extremity was prepped and draped in normal, sterile orthopedic fashion. Timeout was called confirming the side, site, and operation to be performed. No concerns were voiced and we elected to proceed with surgery. 2 g Ancef was administered prior to incision by anesthesia staff. I then anesthetized the portal sites with quarter percent bupivacaine with epinephrine. Anterior lateral portal was established 11 blade scalpel. Blunt tipped trocar was driven into the knee joint and the knee was extended passing the trocar into the patellofemoral joint. Trocar was exchanged for an arthroscope and diagnostic arthroscopy was commenced. The joint was filled with normal saline with epinephrine. Hemostasis was excellent throughout the case. Diffuse grade II chondromalacia was noted in the patella. Trochlea appeared pristine. Medial lateral gutters were unremarkable. Medial co mpartment was entered with a valgus stress. Complex tearing the posterior horn and posterior portion of the body was noted with a flap noted at the posterior horn body junction as well as a predominantly horizontal tear in the posterior horn. Partial medial meniscectomy was performed with a combination of baskets and shaver to a stable rim. The superior leaflet of the posterior horizontal tear was significantly unstable and was trimmed back nearly to the capsule. Meniscus was stable to probing after completion of the meniscectomy. Limited chondroplasty was performed for small unstable chondral flap in the central portion of the weightbearing portion of the medial femoral condyle. Intercondylar notch was pristine minus some mild inflammation in the fat pad which was excised with a shaver. Lateral compartment was examined and appeared pristine. The knee was then thoroughly lavaged. Instruments were removed. Hemostasis was excellent. The knee was anesthetized with the remainder of the core percent bupivacaine with epinephrine with an intra-articular block. I used 30 cc total of the local anesthetic. Portal sites were closed in standard fashion with [id number] 3-0 nylon suture. Bulky sterile compression dressing was applied. Patient was awakened from anesthesia and safely explained the operative suite. He tolerated the procedure well without apparent complication. Postoperative plan: Weightbearing as tolerated, range of motion as tolerated. Restart Lovenox postoperative day number 1 in the morning. Patient educated on signs symptoms of hemarthrosis and when to call if any concerns. Tylenol, ice for pain relief along with hydrocodone as written. Follow-up in 2 weeks for suture removal and wound check. Physical therapy to start in 1 week. Surgical Findings: Complex tear of medial meniscus. Grade II chondromalacia medial femoral condyle and patella. Complications Complications: No Admit VTE Documentation VTE Present on Admission: No VTE Mechan Device Prophylaxis: Thigh High GERMAN Hose VTE Pharm Prophylaxis ordered?: Yes
--- NOTE | 2025-04-09 12:39 | POSTOPAN2_ITS ---
Anesthesia Postop Eval I Sum Postop Eval Completion status Anesthesia document: Postop Eval 1 completed: Yes Anesthesia Postop Eval I Summary Anesthesia Postop Eval I Summary: Anesthesia Postop Eval I: Assessment Summary Airway patent Yes 04/09/25 09:19 PREVENTION [email or web address] Spontaneous unlabored Yes 04/09/25 09:19 PREVENTION COORDINATOR.[email or web address] respirations Mental status nausea No 04/09/25 09:19 PREVENTION [email or web address] Vomiting No 04/09/25 09:19 PREVENTION [email or web address] Anesthesia Postop Eval I: Fluid Summary Crystalloid volume administer 1,000 04/09/25 09:19 PREVENTION [email or web address] (ml) Colloids volume administered ( ml) Blood Product volume administered (ml) Total IV fluid infused 1,000 04/09/25 09:19 PREVENTION [email or web address].[email or web address] Anesthesia Postop Eval I: Summary Notes Anesthesia Complication No 04/09/25 09:19 PREVENTION COORDINATOR.[email or web address] Anesthesia Complication Comment: Post-operative progress note Anesthesia: Postop Eval II Evaluation Mental status: Awake Pain Level: 2 nausea: No Vomiting: No
--- NOTE | 2025-04-09 12:39 | PCM.POSTANE2 ---
Anesthesia Postop Eval I Sum Postop Eval Completion status Anesthesia document: Postop Eval 1 completed: Yes Anesthesia Postop Eval I Summary Anesthesia Postop Eval I Summary: Anesthesia Postop Eval I: Assessment Summary Airway patent Yes 04/09/25 09:19 [email or web address] Spontaneous unlabored Yes 04/09/25 09:19 BURLAP [email or web address] respirations Mental status nausea No 04/09/25 09:19 [email or web address] Vomiting No 04/09/25 09:19 [email or web address] Anesthesia Postop Eval I: Fluid Summary Crystalloid volume administer 1,000 04/09/25 09:19 [email or web address] (ml) Colloids volume administered ( ml) Blood Product volume administered (ml) Total IV fluid infused 1,000 04/09/25 09:19 [email or web address] Anesthesia Postop Eval I: Summary Notes Anesthesia Complication No 04/09/25 09:19 BURLAP [email or web address] Anesthesia Complication Comment: Post-operative progress note Anesthesia: Postop Eval II Evaluation Mental status: Awake Pain Level: 2 nausea: No Vomiting: No
== END 2025-04-09 10:36 | disposition home or self-care (01) ==
LOC: SDC 06:45 → AC 06:46
PROVIDERS: PCP Family Medicine; Referring Provider Student in an Organized Health Care Education/Training Program; Visit Provider Student in an Organized Health Care Education/Training Program
PROC: (CPT 29870; principal; 2025-04-09 08:10)
DX: S83.232A Complex tear of medial meniscus, current injury, left knee, initial encounter (principal); I11.0 Hypertensive heart disease with heart failure; I50.9 Heart failure, unspecified; E11.9 Type 2 diabetes mellitus without complications; Z79.4 Long term (current) use of insulin; M22.42 Chondromalacia patellae, left knee; X58.XXXA Exposure to other specified factors, initial encounter; Y99.0 Civilian activity done for income or pay; Z79.01 Long term (current) use of anticoagulants; Z79.84 Long term (current) use of oral hypoglycemic drugs; Z79.85 Long-term (current) use of injectable non-insulin antidiabetic drugs; Z86.711 Personal history of pulmonary embolism; Z86.718 Personal history of other venous thrombosis and embolism; Z87.891 Personal history of nicotine dependence
CPT/HCPCS: 29881; 01400; 36415; 80048; 82962; 83036; 85025; 93005; J2405

== ENCOUNTER → 2025-04-24 | Outpatient (CLI) | payer BC, SELFPAY ==
[2025-04-24 09:51] LABS: Hematocrit 42.3 % (40-54); Hemoglobin 14.1 g/dL (13.0-16.5); Immature Granulocytes Count 0.020 X10^3/uL (0.0-0.0); Mean Corp Hgb Conc 33.3 g/dL (32-36); Mean Corpuscular Volume 91.0 fL (80-94); Mean Platelet Vol. 9.5 fl (6.2-12.0); NRBC Flagged by Analyzer 0 % (0-5); Platelet Count 264 K/mm3 (150-450); RBC Distribution Width CV 13.9 % (11.6-14.6); RBC Distribution Width SD 46.3 fl (35.1-43.9); Red Blood Count 4.65 M/mm3 (4.6-6.2); White Blood Count 5.9 K/mm3 (4.4-11.0)
[2025-04-24 10:29] LABS: Creatinine, Urine (random) 177.00 mg/dL (39.00-259.00); Microalbumin,Random Urine 37.7 mg/L (<20 mg/L)
[2025-04-24 10:44] LABS: AST(SGOT) 13 U/L (<=37); Alanine Aminotransfer ALT/SGPT 16 U/L (<=46); Albumin, Serum 4.0 g/dL (3.5-5.0); Alkaline Phosphatase 82 U/L (40-129); Anion Gap 11 (5-15); BUN 20 mg/dL (4-19); BUN/Creat Ratio 33.0 RATIO (10-20); Calcium,Total 9.2 mg/dL (7.6-11.0); Carbon Dioxide 24.0 mmol/L (21.0-32.0); Chloride 103 mmol/L (98-108); Cholesterol 199 mg/dL (<=200); Globulin 2.7 g/dL (2.2-4.2); Glucose 204 mg/dL (70-99); Low Density Lipoprotein Calc. 92 mg/dL; Potassium 4.4 mmol/L (3.3-5.1); Triglycerides 420 mg/dL; Very Low Density Lipoprotein 84 mg/dL (5-40); cholesterol:hdl ratio screen 5.38
== END | disposition home or self-care (01) ==
LOC: MTLAB 07:30
PROVIDERS: PCP Family Medicine; Referring Provider Family Medicine; Visit Provider Family Medicine
DX: E11.9 Type 2 diabetes mellitus without complications (principal); E05.90 Thyrotoxicosis, unspecified without thyrotoxic crisis or storm; K62.5 Hemorrhage of anus and rectum
CPT/HCPCS: 36415; 80053; 80061; 82043; 82570; 83036; 84439; 84443; 85025